=== PATIENT | female | born 1945 | race African-American/Black ===

== ENCOUNTER 2016-08-10 21:05 | Inpatient (IN) ==
[2016-08-10] MEDS ORDERED: *HR* Dextrose 50 % in Water (Syg) 50 ML SYRINGE IVP ONE (21:16)
[2016-08-10] MEDS ORDERED: 0.9 % Sodium Chloride 500 ML IVC ONE (21:18)
--- NOTE | 2016-08-10 21:46 | Emergency Department Note ---
Disposition Clinical Impression: Bilateral pleural effusion, Hypoglycemia Pneumonia Qualifiers: Pneumonia type: due to unspecified organism Laterality: bilateral Lung location : lower lobe of lung Qualified Code(s): J18.9 - Pneumonia, unspecified organism Disposition: Admitted As Inpatient Condition: Fair Referrals: NO,PCP [Non-Partnered Physician] - Forms: ED Satisfaction Letter Time of Disposition: 23:11 General Adult HPI - General Chief complaint: ED Nausea/Vomiting/Diarrhea Stated complaint: hypoglycemic Source: patient, EMS Limitations: no limitations Nursing Notes Reviewed: Yes Vital Signs Reviewed: Yes - History of Present Illness HPI Narrative: Patient is a 70-year-old female presents with a hypoglycemic episode with no inciting event. Patient states she had similar event yesterday which she presented to the ED for 1 day ago. She denies fever, chills, nausea, vomiting, shortness of breath, abdominal pain, diarrhea. She has chest wall tenderness secondary to pulled muscle from physical therapy. Pain Scale: 6 - Related Data Home Medications Medication Instructions Recorded Confirmed Aspirin 81 mg PO DAILY 02/08/16 02/14/16 Atorvastatin [Lipitor] 40 mg PO HS 02/08/16 02/14/16 Duloxetine HCl [Cymbalta] 30 mg PO DAILY 02/08/16 02/14/16 Ergocalciferol (VITAMIN D2) 50,000 unit PO QWEEK 02/08/16 02/14/16 [Vitamin D2 (50,000 UNIT)] Ezetimibe [Zetia] 10 mg PO DAILY 02/08/16 02/14/16 Febuxostat [Uloric] 80 mg PO DAILY 02/08/16 02/14/16 Furosemide [Lasix] 40 mg PO DAILY 02/08/16 02/14/16 Gabapentin [Neurontin] 300 mg PO TID 02/08/16 02/14/16 Hydralazine HCl 50 mg PO Q8H 02/08/16 02/14/16 Isosorbide MONOnitrate (24 HR) 120 mg PO DAILY 02/08/16 02/14/16 [Imdur] LORazepam [Ativan] 0.25 mg PO BID PRN 02/08/16 02/14/16 Levothyroxine Sodium [Synthroid] 200 mcg PO DAILY 02/08/16 02/14/16 Polyethylene Glycol 3350 [MiraLAX] 17 gm PO DAILY PRN 02/08/16 02/14/16 Renal Vitamin [Renal Caps Softgel] 1 mg PO DAILY 02/08/16 02/14/16 Amlodipine [Norvasc] 10 mg PO DAILY 02/14/16 02/14/16 Lidocaine Patch [Lidoderm 5% patch] 1 each TP DAILY 02/14/16 02/14/16 Metoprolol XL (24 HR) Succ [Toprol 25 mg PO DAILY 02/14/16 02/14/16 XL] Oxycodone HCl 15 mg PO TID PRN 02/14/16 02/14/16 Subcutaneous Insulin Pump [T:Slim] 0 unit SQ CONT 02/14/16 02/14/16 Previous Rx's Medication Instructions Recorded Docusate [Colace] 100 mg PO BID PRN 30 Days 02/19/16 Insulin ASPART [NovoLOG] 3 unit SQ TIDWM #60 mls 02/19/16 Insulin DETEMIR [Levemir] 25 unit SQ HS #30 mls 02/19/16 LORazepam [Ativan] 0.25 mg PO BID PRN #15 tablet 02/19/16 Levofloxacin [Levaquin] 750 mg PO DAILY #1 tablet 02/19/16 OxyCODONE Immed Rel [Roxicodone 15 15 mg PO Q8HR PRN #20 tablet 02/19/16 MG] PredniSONE 60 mg PO DAILY 5 Days 02/26/16 Allergies Allergy/AdvReac Type Severity Reaction Status Date / Time IVP DYE Allergy See Uncoded 01/01/16 09:03 Comments Past Medical History - Past Medical History Medical history: Reports: coronary artery disease, diabetes, dialysis, hyperlipidemia, hypertension, renal disease, thyroid disease Surgical history: Reports: hysterectomy, orthopedic, other (Spinal surgeries and pain management injections of the spine) Psychiatric history: Reports: no psych history - Social History Smoking Status: Never smoker Smokeless Tobacco Status: No Alcohol use: Reports: none Drug use: Reports: none Physical Exam - General Limitations: no limitations General appearance: alert, in no apparent distress - Head Head exam: atraumatic, normocephalic, normal inspection - Eye Eye exam: Present: normal appearance, PERRL, EOMI. Absent: scleral icterus - ENT ENT exam: normal exam, normal oropharynx, mucous membranes dry - Neck Neck exam: Present: normal inspection, full ROM, trachea midline. Absent: tenderness - Chest Chest inspection: Present: normal inspection, symmetric chest wall rise. Absent : tenderness - Respiratory Respiratory exam: Present: normal lung sounds bilaterally. Absent: respiratory distress, wheezes - Cardiovascular Cardiovascular exam: Present: regular rate, irregular rhythm - Abdominal Exam Abdominal exam: Present: soft, Non-Tender. Absent: tenderness, distention, guarding, rebound, rigidity - Extremities Exam Extremities exam: Present: full ROM, pedal edema (Bilateral nonpitting). Absent : tenderness - Back Exam Back exam: Present: normal inspection, full ROM, tenderness, other. Absent: CVA tenderness (R), CVA tenderness (L) Back 1 view image: 1 - Decubitus ulcer 2 - Decubitus ulcer both nonpurulent nondraining and superficial - Neurological Exam Neurological exam: Present: alert, oriented X3, CN II-XII intact - Psychiatric Psychiatric exam: Present: normal affect, normal mood - Skin Skin exam: Present: warm, dry, intact, pallor (Mildly ashen skin tone). Absent : mottled Course - Reevaluation(s) Reevaluation #1: Assessment: Hypoglycemic episode possibly stimulated by viral/bacterial infection, ACS/NV, PE Time: 21:33 Reevaluation #2: Patient stool well but appears very tired. She complains of chest wall pain and edema to muscle strain that she incurred from physical therapy. Currently no vaccination for why patient is having his rebound hypoglycemic episodes. Patient's decubitus ulcers on her buttocks. Really clean but cultured anyway. Initiated peripheral cultures as well Time: 22:00 Reevaluation #3: CXR shows: IMPRESSION: per Radiology Vascular congestion and basilar pulmonary edema with small pleural effusions. Superimposed pneumonia remains a possibility, especially on the right side. Patient's CBC shows a mild elevation of white count of 12.0 and chronic anemia. CBC shows a hyperkalemia of 5.4 along with chronically elevated BUN and creatinine. Recommend admission to the hospital for treatment of community acquired pneumonia. He started on bank and Zosyn, to cover for healthcare associated pneumonia. Patient has been updated on progress and has accepted admission for further treatment. Time: 23:14 - Consultations Consultation #1: Dr. Hui has accepted patient for admission. Time: 23:10 Vital Signs Temperature 98.1 F 08/10/16 21:06 Pulse Rate 76 08/10/16 21:06 Respiratory Rate 18 08/10/16 21:06 Blood Pressure 124/104 08/10/16 21:06 O2 Sat by Pulse Oximetry 94 08/10/16 21:06 Temperature 98.1 F 08/10/16 21:06 Pulse Rate 76 08/10/16 21:06 Respiratory Rate 18 08/10/16 21:06 Blood Pressure 124/104 08/10/16 21:06 O2 Sat by Pulse Oximetry 94 08/10/16 21:06 Oxygen Delivery Oxygen Delivery Nasal Cannula Medical Decision Making - Medical Records Medical records reviewed: Yes I reviewed the patient's medical records. - Lab Data Lab results reviewed: Yes I reviewed the patient's lab results. Lab results narrative: Short CBC 08/10/16 Range/Units 21:52 WBC 12.0 H (4.3-11.1) K/mcL Hgb 9.9 L (11.5-15.4) g/dL Hct 32.1 L (35.3-44.9) % Plt Count 455 H (140-400) K/mcL Neutrophils # 4.6 (1.6-8.9) K/mcL BMP 08/10/16 Range/Units 21:52 Sodium 137 (136-145) mEq/L Potassium 5.4 H (3.5-4.5) mEq/L Chloride 101 (98-109) mEq/L Carbon Dioxide 25 (19-29) mEq/L BUN 55 H (7-20) mg/dL Creatinine 8.15 H (0.57-1.11) mg/dL Glucose 107 H (70-99) mg/dL Calcium 9.2 (8.6-10.8) mg/dL Cardiac Enzymes 08/10/16 Range/Units 21:52 Troponin I 0.03 (0-0.03) ng/mL Result diagrams: 08/10/16 21:52 08/10/16 21:52 Lab Results 08/10/16 08/10/16 08/10/16 Range/Units 21:10 21:49 21:52 WBC 12.0 H (4.3-11.1) K/mcL RBC 3.14 L (3.82-4.97) M/mcL Hgb 9.9 L (11.5-15.4) g/dL Hct 32.1 L (35.3-44.9) % MCV 102.2 H (83.0-100.0) fL MCH 31.5 (28.0-33.3) pg MCHC 30.8 L (31.6-35.5) g/dL RDW 18.6 H (11.5-14.5) % Plt Count 455 H (140-400) K/mcL MPV 9.3 L (9.4-12.4) fL Immature Gran % 0.7 (0-4) % Seg Neutrophils % 38.4 % Lymphocytes % 15.8 % Monocytes % 15.0 % Eosinophils % 29.1 % Basophils % 1.0 % Neutrophils # 4.6 (1.6-8.9) K/mcL Lymphocytes # 1.9 (0.6-4.6) K/mcL Monocytes # 1.8 H (0.0-1.3) K/mcL Eosinophils # 3.5 H (0.0-0.6) K/mcL Basophils # 0.1 (0.0-0.2) K/mcL Nucleated RBCs/100 WBC 0.4 H (0) /100 WBC Platelet Estimate Slight increase H (Normal) Large Platelets Present A (Not Present) Immature Plt Fraction 1.8 (1.1-6.1) % Polychromasia 1+ A (Not Present) Anisocytosis 1+ A (Not Present) ESR (0-15) mm/hr Sodium (136-145) mEq/L Potassium (3.5-4.5) mEq/L Chloride (98-109) mEq/L Carbon Dioxide (19-29) mEq/L BUN (7-20) mg/dL Creatinine (0.57-1.11) mg/dL Est GFR ( Amer) (> 60) Est GFR (Non-Af Amer) (> 60) BUN/Creatinine Ratio (6-26) Glucose (70-99) mg/dL POC Glucose 42 L* 112 H (58-89) Calculated Osmolality (280-300) Calcium (8.6-10.8) mg/dL Troponin I (0-0.03) ng/mL Specimen Rejected 08/10/16 08/10/16 08/10/16 Range/Units 21:52 21:52 21:52 WBC (4.3-11.1) K/mcL RBC (3.82-4.97) M/mcL Hgb (11.5-15.4) g/dL Hct (35.3-44.9) % MCV (83.0-100.0) fL MCH (28.0-33.3) pg MCHC (31.6-35.5) g/dL RDW (11.5-14.5) % Plt Count (140-400) K/mcL MPV (9.4-12.4) fL Immature Gran % (0-4) % Seg Neutrophils % % Lymphocytes % % Monocytes % % Eosinophils % % Basophils % % Neutrophils # (1.6-8.9) K/mcL Lymphocytes # (0.6-4.6) K/mcL Monocytes # (0.0-1.3) K/mcL Eosinophils # (0.0-0.6) K/mcL Basophils # (0.0-0.2) K/mcL Nucleated RBCs/100 WBC (0) /100 WBC Platelet Estimate (Normal) Large Platelets (Not Present) Immature Plt Fraction (1.1-6.1) % Polychromasia (Not Present) Anisocytosis (Not Present) ESR 47 H (0-15) mm/hr Sodium 137 (136-145) mEq/L Potassium 5.4 H (3.5-4.5) mEq/L Chloride 101 (98-109) mEq/L Carbon Dioxide 25 (19-29) mEq/L BUN 55 H (7-20) mg/dL Creatinine 8.15 H (0.57-1.11) mg/dL Est GFR ( Amer) 6 L (> 60) Est GFR (Non-Af Amer) 5 L (> 60) BUN/Creatinine Ratio 7 (6-26) Glucose 107 H (70-99) mg/dL POC Glucose (58-89) Calculated Osmolality 300 (280-300) Calcium 9.2 (8.6-10.8) mg/dL Troponin I 0.03 (0-0.03) ng/mL Specimen Rejected 08/10/16 Range/Units 22:15 WBC (4.3-11.1) K/mcL RBC (3.82-4.97) M/mcL Hgb (11.5-15.4) g/dL Hct (35.3-44.9) % MCV (83.0-100.0) fL MCH (28.0-33.3) pg MCHC (31.6-35.5) g/dL RDW (11.5-14.5) % Plt Count (140-400) K/mcL MPV (9.4-12.4) fL Immature Gran % (0-4) % Seg Neutrophils % % Lymphocytes % % Monocytes % % Eosinophils % % Basophils % % Neutrophils # (1.6-8.9) K/mcL Lymphocytes # (0.6-4.6) K/mcL Monocytes # (0.0-1.3) K/mcL Eosinophils # (0.0-0.6) K/mcL Basophils # (0.0-0.2) K/mcL Nucleated RBCs/100 WBC (0) /100 WBC Platelet Estimate (Normal) Large Platelets (Not Present) Immature Plt Fraction (1.1-6.1) % Polychromasia (Not Present) Anisocytosis (Not Present) ESR (0-15) mm/hr Sodium (136-145) mEq/L Potassium (3.5-4.5) mEq/L Chloride (98-109) mEq/L Carbon Dioxide (19-29) mEq/L BUN (7-20) mg/dL Creatinine (0.57-1.11) mg/dL Est GFR ( Amer) (> 60) Est GFR (Non-Af Amer) (> 60) BUN/Creatinine Ratio (6-26) Glucose (70-99) mg/dL POC Glucose (58-89) Calculated Osmolality (280-300) Calcium (8.6-10.8) mg/dL Troponin I (0-0.03) ng/mL Specimen Rejected Volume - Radiology Data Chest X-Ray 08/10/16 21:16 IMPRESSION: Vascular congestion and basilar pulmonary edema with small pleural effusions. Superimposed pneumonia remains a possibility, especially on the right side. D/ / Shahbaz Ellis MD / Shahbaz Ellis MD Interpreting Provider: Shahbaz Ellis MD - EKG Data EKG #1 EKG attestation: Yes I reviewed and interpreted this EKG. EKG results narrative: EKG taken 08/10/2016 shows a atrial fibrillation at a ventricular rate of 74 bpm , no acute ST elevations or depressions and a leads. No QRS I had needing or prolongation of QT. Previous EKG taken 02/26/2016 shows a sinus rhythm at a rate of 72 beats a minute with no acute ST elevations or depressions and a leads. Attestation Statement - Attestation Attestation: I examined this patient and my medical decision-making was reviewed with the STEAM SHOVEL OILER/PA/Advanced Practice Nurse/Resident Physician. I agree with the documented findings, disposition and treatment plan as described except to the extent set forth below. Emergency Department with low blood sugar. Was seen last night for the same. states they went home. She has had her insulin pump off all day. She took 2 small doses of subcutaneous insulin today. She had a big dinner. States she became altered and her blood sugar was in the 30s. Denies fever. On exam here she is awake and alert. Lungs clear abdomen soft. She does have 2 small areas of skin breakdown over her sacrum. Land. Culture sent. Septic workup. She does have an elevated white blood cell count. She is a dialysis patient. Unclear if she has a source of infection. Starting on D5 and likely admission.
[2016-08-10 22:03] LABS: Basophils # 0.1 K/mcL (0.0-0.2); Eosinophils # 3.5 K/mcL (0.0-0.6); Eosinophils % 29.1 %; Hematocrit 32.1 % (35.3-44.9); Hemoglobin 9.9 g/dL (11.5-15.4); Immature Granulocytes % 0.7 % (0-4); Immature Platelets 1.8 % (1.1-6.1); Lymphocytes # 1.9 K/mcL (0.6-4.6); Lymphocytes % 15.8 %; Mean Corpuscular HGB Conc 30.8 g/dL (31.6-35.5); Mean Corpuscular Hemoglobin 31.5 pg (28.0-33.3); Mean Corpuscular Volume 102.2 fL (83.0-100.0); Mean Platelet Volume 9.3 fL (9.4-12.4); Monocytes # 1.8 K/mcL (0.0-1.3); Neutrophils # 4.6 K/mcL (1.6-8.9); Nucleated Red Blood Cells 0.4 /100 WBC (0); Platelet Count 455 K/mcL (140-400); Red Blood Count 3.14 M/mcL (3.82-4.97); Red Cell Distribution Width 18.6 % (11.5-14.5); Segmented Neutrophils % 38.4 %
[2016-08-10] MEDS ORDERED: D5% in 0.45% NACL 1,000 ML IVC SCH (22:15)
[2016-08-10 22:16] LABS: Calcium 9.2 mg/dL (8.6-10.8); Potassium 5.4 mEq/L (3.5-4.5)
[2016-08-10] MEDS ORDERED: Vancomycin 1,250 MG in D5% in Water 250 ML IVPB ONE (22:29)
[2016-08-10 22:44] LABS: Anisocytosis 1+ (Not Present); Large Platelets Present (Not Present); Polychromasia 1+ (Not Present)
[2016-08-10] MEDS ORDERED: Piperacillin/Tazobactam 3.375 GM in D5% in Water (Mini-Bag+) 100 ML IVPB ONE (22:52)
[2016-08-11] MEDS: *HR* OxyCODONE Immed Rel 15 MG TABLET PO PRN ×2 (03:31→17:33)
[2016-08-11] MEDS ORDERED: Naloxone 0.4 MG/ML INJ IVP PRN (06:18)
[2016-08-11] MEDS ORDERED: Dextrose Gel 15 GM PO PRN ×2 (06:23)
[2016-08-11] MEDS ORDERED: D5% in Water 1,000 ML IVC PRN (06:23)
--- NOTE | 2016-08-11 06:25 | Internal Med History&Physical ---
Date of Encounter: 08/11/16 Time of Encounter: 04:00 Assessment and Plan (1) Hypoglycemia Current visit: Yes Status: Acute Likely due to infection versus malfunction of the insulin pump / excess insulin and poor oral intake. Insulin pump discontinued. Pt is on D5W infusion. start sliding scale insulin, when the glood glucose improves. (2) Pneumonia Current visit: Yes Status: Acute CXR is suspicious for pneumonia. Will start the pt on vancomycin and zosyn. sputum cultures. Qualifiers: Pneumonia type: due to unspecified organism Laterality: bilateral Lung location: unspecified part of lung Qualified Code(s): J18.9 - Pneumonia, unspecified organism (3) Pulmonary edema Current visit: Yes Status: Acute Likely due to volume overload related to ESRD. Will consult tax services manager for further advice. Qualifiers: Chronicity: acute Qualified Code(s): J81.0 - Acute pulmonary edema (4) Hyperkalemia Current visit: Yes Status: Acute On D5W. Ladder Operator consult (5) ESRD (end stage renal disease) on dialysis Current visit: Yes Status: Chronic Nephrology consult. (6) Atrial fibrillation Current visit: Yes Status: Chronic rate controlled. Not on anticoagulation prior to admission. Qualifiers: Atrial fibrillation type: unspecified Qualified Code(s): I48.91 - Unspecified atrial fibrillation (7) Diabetes Current visit: Yes Status: Chronic Pt is hypoglycemic on admission. Hold insulin. On D5W infusion. Qualifiers: Diabetes mellitus type: type 2 Diabetes mellitus complication status: with circulatory complication Diabetes mellitus complication detail: with other circulatory complications Diabetes mellitus penitentiary insulin use: with termination clerk use Qualified Code(s): E11.59 - Type 2 diabetes mellitus with other circulatory complications; Z79.4 - tank terminal gauger (current) use of insulin (8) DVT prophylaxis Current visit: Yes Status: Acute SubQ heparin Internal Medicine - H&P: HPI Chief complaint: Hypoglecemia Admitted From: Emergency Dept Plans for Post Hospital Care: Home History of present illness: Ms. Moffett is a 70 year old female With h/o coronary artery disease, diabetes mellitus on insulin pump, ESRD on hemodialysis (M/W/F), hypertension. She apparently had an episode of hypoglycemia the night before and insulin pump was discontinued and advised sliding scale insulin. She had another episode of hypoglycemia when at home and apparently had blood glucose of 40, on the scene and 42 in the ER. She is started on IV dextrose. She reports b/l chest pain from pulled muscle from physical therapy. She denies fever, chills, nausea, vomiting, shortness of breath, cough, expectoration, abdominal pain, diarrhea. She does not make much urine and has some dysuria, but denies hematuria. Imaging in the ER was suspicious for pneumonia was given zosyn and vancomycin. She is admitted to the hospitalist service for further management. Past Med Surg Social Fam HX - Past Medical History Medical history: coronary artery disease, diabetes, dialysis, hyperlipidemia, hypertension, renal disease, thyroid disease Psychiatric history: no psych history - Past Surgical History Surgical History: hysterectomy, orthopedic, other - Social History Smoking Status: Never smoker Smokeless Tobacco Status: No Alcohol use: none Drug use: none - Family History Mother Adopted: No Living Status: Hx Family Cardiac Disorders: Yes Father Adopted: No Living Status: Hx Family Cardiac Disorders: No Hx Family Respiratory Disorders: No Hx Family Cancer: Yes Internal Medicine - H&P: Meds Aspirin 81 mg PO DAILY 02/08/16 [History] Atorvastatin [Lipitor] 40 mg PO HS 02/08/16 [History] Duloxetine HCl [Cymbalta] 30 mg PO DAILY 02/08/16 [History] Ergocalciferol (VITAMIN D2) [Vitamin D2 (50,000 UNIT)] 50,000 unit PO QWEEK 10/18 [History] Ezetimibe [Zetia] 10 mg PO DAILY 02/08/16 [History] Febuxostat [Uloric] 80 mg PO DAILY 02/08/16 [History] Furosemide [Lasix] 40 mg PO DAILY 02/08/16 [History] Gabapentin [Neurontin] 300 mg PO TID 02/08/16 [History] Hydralazine HCl 50 mg PO Q8H 02/08/16 [History] Isosorbide MONOnitrate (24 HR) [Imdur] 120 mg PO DAILY 02/08/16 [History] LORazepam [Ativan] 0.5 mg PO BID PRN 02/08/16 [History] Levothyroxine Sodium [Synthroid] 200 mcg PO DAILY 02/08/16 [History] Polyethylene Glycol 3350 [MiraLAX] 17 gm PO DAILY PRN 02/08/16 [History] Renal Vitamin [Renal Caps Softgel] 1 mg PO DAILY 02/08/16 [History] Amlodipine [Norvasc] 10 mg PO DAILY 02/14/16 [History] Lidocaine Patch [Lidoderm 5% patch] 1 each TP DAILY 02/14/16 [History] Docusate [Colace] 100 mg PO BID PRN 30 Days 02/19/16 [Rx] Insulin ASPART [NovoLOG] 3 unit SQ TIDWM #60 mls 02/19/16 [Rx] Allopurinol [Zyloprim 300 MG] 300 mg PO QMWF 08/11/16 [History] Nitroglycerin [Nitroglycerin] 0.1 mg TP DAILY 08/11/16 [History] Ondansetron ODT [Zofran ODT] 4 mg SL Q6HR PRN 08/11/16 [History] OxyCODONE Immed Rel [Roxicodone 15 MG] 5 mg PO Q8HR PRN 08/11/16 [History] Tramadol HCl [Ultram] 50 mg PO Q6HR PRN 08/11/16 [History] Insulin Glargine,Hum.rec.anlog [Lantus Solostar] 40 unit SQ HS 08/12/16 [History ] Meloxicam [Mobic] 15 mg PO DAILY 08/12/16 [History] Metoprolol [Lopressor] 25 mg PO BID 08/12/16 [History] Supplies [SUPPLIES] 1 each .ROUTE QID #125 each 08/14/16 [Rx] Allergies IVP DYE Allergy (Uncoded 01/01/16 09:03) See Comments PATIENT IS ON DIALYSIS "HURTS KIDNEYS" All Systems PM: A 10-system review of systems was performed and is negative for pertinent findings except as documented above in the HPI. - Constitutional Vitals: Temp Pulse Resp BP Pulse Ox 98.5 F 75 16 100/58 93 08/11/16 03:23 08/11/16 03:23 08/11/16 03:23 08/11/16 03:23 08/11/16 03:23 Exam: General: Not in acute distress at the time of my evaluation HEENT: Oral mucosa is moist. No scleral icterus Neck: No obvious neck swellings Chest wall: diffusely tender Lungs: B/L basal crakles Cardiac: Irregular rhythm. systolic murmur Abdomen: Obese, non tender. Bowel sounds present Genitourinary: No machado catheter Neurological: Alert and oriented. No gross localizing deficits Psych: Not aggressive or agitated Extremities: B/L leg edema Skin: No generalized rash Internal Med - H&P Results - Labs CBC & Chem 7: 08/14/16 06:26 08/14/16 14:41 - EKG Data -: EKG Interpreted by Myself - EKG Data EKG comments: Atrial fibrillation; T wave inversion in I, AVL and V6 08/11/16 07:42 - Impressions ITS Impressions Chest X-Ray 08/10/16 21:16 IMPRESSION: Vascular congestion and basilar pulmonary edema with small pleural effusions. Superimposed pneumonia remains a possibility, especially on the right side. D/ / Shahbaz Ellis MD / Shahbaz Ellis MD Interpreting Provider: Shahbaz Ellis MD Abdomen/Pelvis CT 08/10/16 22:28 IMPRESSION: No acute inflammatory abnormality is identified in the abdomen or pelvis. Small bilateral pleural effusions associated with overlying atelectasis. Superimposed pneumonia is a differential possibility. Mild anasarca. L3-4 stable, chronic erosive changes and anterolisthesis. Posterior fixation hardware has been removed from the lumbar spine since May 2016. Cholelithiasis. D/ / Shahbaz Ellis MD / Shahbaz Ellis MD Interpreting Provider: Shahbaz Ellis MD
[2016-08-11] MEDS: Insulin LISPRO 300 UNITS/3 ML VIAL SQ SCH ×4 (07:57→22:46)
[2016-08-11 08:05] LABS: Basophils # 0.1 K/mcL (0.0-0.2); Basophils % 1.1 %; Eosinophils # 2.9 K/mcL (0.0-0.6); Eosinophils % 23.9 %; Hematocrit 31.4 % (35.3-44.9); Hemoglobin 9.4 g/dL (11.5-15.4); Immature Granulocytes % 0.9 % (0-4); Immature Platelets 1.4 % (1.1-6.1); Lymphocytes # 2.1 K/mcL (0.6-4.6); Lymphocytes % 17.2 %; Mean Corpuscular HGB Conc 29.9 g/dL (31.6-35.5); Mean Corpuscular Hemoglobin 30.7 pg (28.0-33.3); Mean Corpuscular Volume 102.6 fL (83.0-100.0); Mean Platelet Volume 9.4 fL (9.4-12.4); Monocytes # 1.5 K/mcL (0.0-1.3); Monocytes % 12.5 %; Neutrophils # 5.5 K/mcL (1.6-8.9); Nucleated Red Blood Cells 0.3 /100 WBC (0); Platelet Count 438 K/mcL (140-400); Red Blood Count 3.06 M/mcL (3.82-4.97); Red Cell Distribution Width 18.4 % (11.5-14.5); Segmented Neutrophils % 44.4 %
[2016-08-11 08:15] LABS: Calcium 9.3 mg/dL (8.6-10.8); Magnesium 1.8 mg/dL (1.6-2.6); Phosphorous 4.1 mg/dL (2.3-4.7)
[2016-08-11 08:20] LABS: Potassium 6.1 mEq/L (3.5-4.5)
[2016-08-11 08:25] LABS: Anisocytosis 1+ (Not Present); Polychromasia 1+ (Not Present)
--- NOTE | 2016-08-11 08:45 | Internal Med Progress Note ---
Date of Encounter: 08/11/16 Time of Encounter: 08:43 - Assessment and plan (1) Uncontrolled type 2 diabetes mellitus with insulin therapy Current Visit: Yes Status: Acute Assessment and plan: Resume insulin sliding scale. Closely monitor blood glucose today 4 times daily. Insulin pump was deactivated. Check hemoglobin A1c. (2) Musculoskeletal chest pain Current Visit: Yes Status: Acute Assessment and plan: Lidocaine patch and will add oxycodone. (3) Hyperkalemia Current Visit: Yes Status: Acute Assessment and plan: Her potassium was 5.4 on presentation, she was given 1 dose of Kayexalate, she had a regular bowel movement. In spite of that her potassium went up to 6.1. I discussed the case with nephrology. She will be evaluated this morning for emergent dialysis for refractory hyperkalemia. (4) Bilateral pleural effusion Current Visit: Yes Status: Acute (5) Hypoglycemia Current Visit: Yes Status: Acute (6) Pulmonary edema Current Visit: Yes Status: Acute Assessment and plan: Secondary to fluid overload and. She is in no respiratory distress. She will have hemodialysis today with fluid removal. Qualifiers: Chronicity: acute Qualified Code(s): J81.0 - Acute pulmonary edema (7) ESRD (end stage renal disease) on dialysis Current Visit: Yes Status: Chronic (8) DVT prophylaxis Current Visit: No Status: Acute Assessment and plan: We will provide subcutaneous heparin. (9) HCAP (healthcare-associated pneumonia) Current Visit: No Status: Acute Assessment and plan: There is a possibility of pneumonia reported on imaging studies. White blood cell count is elevated. The patient is not hypoxic. Due to her high risk of decline I will continue treatment with IV Zosyn. Follow up blood culture and sputum culture and these are negative consider stopping antibiotics. - Subjective Interval history: Patient presented to the hospital for evaluation of blood glucose. Her fingerstick was 40 in the emergency department. She was given IV dextrose. Currently her glucose is greater than 500. She reports severe sharp pain in the left side of the chest where she says she sprained a muscle a few days ago while doing therapy. The pain improved at home with oxycodone. She denies any associated shortness of breath or nausea. - Constitutional Vitals: Temp Pulse Resp BP Pulse Ox 97.9 F 77 18 99/50 93 08/11/16 07:41 08/11/16 07:41 08/11/16 07:41 08/11/16 07:41 08/11/16 07:41 General appearance: Present: A&O X 3 (Moderate distress due to muscle pain.) - Eye Eye exam: Present: PERRL, conjuntiva pink, sclera anicteric Pupils: Present: PERRL - Respiratory Respiratory exam: Present: rales (Find crackles audible over both lung thomas). Absent: accessory muscle use, rhonchi, wheezes - Cardiovascular Cardiovascular exam: Present: RRR, +S1, +S2. Absent: diastolic murmur, gallop, rubs, systolic murmur - GI/Abdominal GI/Abdominal exam: Present: normal bowel sounds, soft, no peritoneal signs. Absent: distended, tenderness - Extremities Exam Extremities exam: Present: warm, radial pulses palpable and symetrical. Absent : calf tenderness (Left upper extremity AV fistula with palpable thrill), cyanotic, pedal edema - Skin Skin exam: Present: dry, intact Internal Medicine: Result - Labs CBC & Chem 7: 08/11/16 07:48 08/11/16 07:48 Labs: Short CBC 08/11/16 Range/Units 07:48 WBC 12.3 H (4.3-11.1) K/mcL Hgb 9.4 L (11.5-15.4) g/dL Hct 31.4 L (35.3-44.9) % Plt Count 438 H (140-400) K/mcL Neutrophils # 5.5 (1.6-8.9) K/mcL BMP 08/11/16 07:48 Sodium 134 L Potassium 6.1 H Chloride 97 L Carbon Dioxide 17 L BUN 65 H Creatinine 8.78 H Glucose 504 H* Calcium 9.3 Consult Discharge Plan - Plan Referrals: Hugo Mercedes MD [Primary Care Provider] -
[2016-08-11] MEDS ORDERED: Albumin 25% 12.5gm/50mL 12.5 GM/50 ML IV.SOLN IVPB PRN (09:20)
[2016-08-11] MEDS ORDERED: 0.9 % Sodium Chloride 250 ML IVC PRN (09:20)
[2016-08-11] MEDS ORDERED: 0.9 % Sodium Chloride 2,000 ML ONE (11:13)
--- NOTE | 2016-08-11 12:36 | Nephrology Consult Note ---
Date of Encounter: 08/11/16 Time of Encounter: 10:15 Assessment and Plan (1) ESRD (end stage renal disease) on dialysis Current Visit: Yes Status: Chronic Fragile diabetic with hypoglycemia while on an insulin pump, who presented with symptomatic hypoglycemia overnight. Was found to be mildly hyperkalemic and was given Kayexalte but yet her serum K+ actually ponce to 6+ this AM. She also has signs of fluid overload with pleural effusions. So has indications for urgent HD today (refractory hyperkalemia and fluid overload). I called in the on-call HD RN and arranged for 2hr of HD with Qb450, Qd600, 2K bath, goal UF of 1.5kg. Tentatively plan for resumption of her chronic HD tomorrow (Friday). AV access: left upper arm with excellent thrill and bruit. The pt was seen while on HD after the consult and the photoengraving machine operator/tender reported mildly affected venous flows: will monitor but if needed a Fistulagram could be arranged as an outpt. Thank you for consulting the [facility]. (2) Bilateral pleural effusion Current Visit: Yes Status: Acute (3) Hyperkalemia Current Visit: Yes Status: Acute (4) Hypoglycemia Current Visit: Yes Status: Acute (5) Uncontrolled type 2 diabetes mellitus with insulin therapy Current Visit: Yes Status: Acute History of Present Illness - Reason for Consult Consult date: 08/11/16 end stage renal disease, hyperkalemia Requesting physician: Teodoro Lopez - Chief Complaint Hyperkalemia; ESRD; Hypoglycemia - History of Present Illness Ursula Moffett is a very pleasant 70 y/o female with a pmh of lonstanding ESRD on HD M/W/F, IDDM, obesity, and et al who presented with symptomatic hypoglycemia. She had an insulin pump in place earlier this week, which as since been removed. Nephrology was consulted for refractory hyperkalemia. She had received kayexalate last night but yet her serum K+ levels ponce higher. She reported to me that she has suffered several hospitalizations and not long ago was at [facility] in [place] and required inpatient rehab at [facility] near [facility], for about 2 months. I reviewed the [facility] records via the [facility]. Her primary nursing education consultant is Dr. Louise. She typically dialyzes 210 min. She last completed HD on 08/09/16 for 217 min. She receives a 1K bath apparently for recurrent hyperkalemia. Qb450, Qd 600, LUE AVF. Past Med Surg Social Fam HX - Past Medical History Medical history: coronary artery disease, diabetes, dialysis, hyperlipidemia, hypertension, renal disease, thyroid disease Psychiatric history: no psych history - Past Surgical History Surgical History: hysterectomy, orthopedic, other - Social History Smoking Status: Never smoker Smokeless Tobacco Status: No Alcohol use: none Drug use: none - Family History Mother Adopted: No Living Status: Hx Family Cardiac Disorders: Yes Father Adopted: No Living Status: Hx Family Cardiac Disorders: No Hx Family Respiratory Disorders: No Hx Family Cancer: Yes Medications and Allergies Aspirin 81 mg PO DAILY 02/08/16 [History] Atorvastatin [Lipitor] 40 mg PO HS 02/08/16 [History] Duloxetine HCl [Cymbalta] 30 mg PO DAILY 02/08/16 [History] Ergocalciferol (VITAMIN D2) [Vitamin D2 (50,000 UNIT)] 50,000 unit PO QWEEK 10/18 [History] Ezetimibe [Zetia] 10 mg PO DAILY 02/08/16 [History] Febuxostat [Uloric] 80 mg PO DAILY 02/08/16 [History] Furosemide [Lasix] 40 mg PO DAILY 02/08/16 [History] Gabapentin [Neurontin] 300 mg PO TID 02/08/16 [History] Hydralazine HCl 50 mg PO Q8H 02/08/16 [History] Isosorbide MONOnitrate (24 HR) [Imdur] 120 mg PO DAILY 02/08/16 [History] LORazepam [Ativan] 0.25 mg PO BID PRN 02/08/16 [History] Levothyroxine Sodium [Synthroid] 200 mcg PO DAILY 02/08/16 [History] Polyethylene Glycol 3350 [MiraLAX] 17 gm PO DAILY PRN 02/08/16 [History] Renal Vitamin [Renal Caps Softgel] 1 mg PO DAILY 02/08/16 [History] Amlodipine [Norvasc] 10 mg PO DAILY 02/14/16 [History] Lidocaine Patch [Lidoderm 5% patch] 1 each TP DAILY 02/14/16 [History] Metoprolol XL (24 HR) Succ [Toprol XL] 25 mg PO DAILY 02/14/16 [History] Oxycodone HCl 15 mg PO TID PRN 02/14/16 [History] Subcutaneous Insulin Pump [T:Slim] 0 unit SQ CONT 02/14/16 [History] Docusate [Colace] 100 mg PO BID PRN 30 Days 02/19/16 [Rx] Insulin ASPART [NovoLOG] 3 unit SQ TIDWM #60 mls 02/19/16 [Rx] Insulin DETEMIR [Levemir] 25 unit SQ HS #30 mls 02/19/16 [Rx] LORazepam [Ativan] 0.25 mg PO BID PRN #15 tablet 02/19/16 [Rx] Levofloxacin [Levaquin] 750 mg PO DAILY #1 tablet 02/19/16 [Rx] OxyCODONE Immed Rel [Roxicodone 15 MG] 15 mg PO Q8HR PRN #20 tablet 02/19/16 [Rx ] PredniSONE 60 mg PO DAILY 5 Days 02/26/16 [Rx] Allergies IVP DYE Allergy (Uncoded 01/01/16 09:03) See Comments PATIENT IS ON DIALYSIS "HURTS KIDNEYS" Review of Systems All Systems: reviewed and no additional remarkable complaints except as stated Exam - Vital Signs Vital signs: Initial Vital Signs Temp Pulse Resp BP Pulse Ox 98.1 F 76 18 124/104 94 08/10/16 21:06 08/10/16 21:06 08/10/16 21:06 08/10/16 21:06 08/10/16 21:06 Vital Signs - Last 8 Hours Temp Pulse Resp BP Pulse Ox 08/11/16 12:15 108/54 08/11/16 12:00 122/57 08/11/16 11:45 122/56 08/11/16 11:30 97.9 F 18 127/53 08/11/16 07:41 97.9 F 77 18 99/50 93 Intake and Output 08/10/16 08/11/16 08/11/16 23:59 07:59 15:59 Intake Total 1000 / 1300 840 / 840 Output Total 0 / 0 Balance 1000 / 1300 840 / 840 Intake: Oral 1000 / 1000 240 / 240 Intake, Rinseback and 600 / 600 Flushes Output: Urine 0 / 0 Other: Meal Breakfast Percent of Meal Consumed 5% Stool Size Large Stool Consistency formed Stool Color Brown # Urine Diapers 1 Blood Glucose* 446 Hemodialysis Net Fluid 789 Removed (mL) - General Appearance General appearance: well-developed, obese, chronically ill, fatigue, frail EENT: ATNC, PERRL, mucous membranes moist Neck: supple Respiratory: clear Cardiology: edema (trace to 1+ pretibial pitting edema b/l), regular rate, regular rhythm, normal S1, normal S2 - Dialysis Access Dialysis Vascular Access: Arteriovenous Fistula (Left upper extremity with + thrill/bruit on auscultation) thrill: Yes bruit: Yes Gastrointestinal: normoactive bowel sounds, no tenderness, no guarding, no organomegaly Integumentary: warm and dry Neurologic: no focal deficit, no asterixis, alert and oriented x3 Musculoskeletal: no deformities, no erythema, no cyanosis Psychiatric: mood/affect appropriate (but cried in appreciation at the end of the interview/exam and thanked me for providing an extra HD today (Friday)), cooperative Results - Lab Results 08/11/16 07:48 08/11/16 07:48 Most recent lab results Calcium 9.3 mg/dL (8.6-10.8) 08/11/16 07:48 Phosphorus 4.1 mg/dL (2.3-4.7) 08/11/16 07:48 Magnesium 1.8 mg/dL (1.6-2.6) 08/11/16 07:48 I reviewed the above auto-generated data including medical records at [facility] and outside medical records from the [facility] EMR/aime, labs, meds, vitals, imaging. Consult Discharge Plan - Plan Referrals: Hugo Mercedes MD [Primary Care Provider] -
--- NOTE | 2016-08-11 12:45 | Event Note ---
Date of Encounter: 08/11/16 Time of Encounter: 12:00 HD note: The pt was seen/examined while on HD. Hemodynamically stable and tolerating HD without intradialytic hypotension. Access pressures and blood/dialysate flows were acceptable. Plan for the next HD tomorrow.
[2016-08-11 13:16] LABS: Hepatitis B Surface Antigen Nonreactive (Nonreactive)
[2016-08-11] MEDS: Piperacillin/Tazobactam 3.375 GM in D5% in Water (Mini-Bag+) 100 ML IVPB SCH (14:50)
[2016-08-11] MEDS: *HR* Heparin 5,000 UNIT/ML VIAL SQ SCH (17:02)
[2016-08-11] MEDS ORDERED: *HR* LORazepam 0.5 MG TABLET PO PRN (17:33)
[2016-08-11] MEDS: hydrALAZINE 25 MG TABLET PO SCH (18:40)
[2016-08-11] MEDS: *HR* Morphine 2 MG/ML SYRINGE IVP PRN (20:13)
[2016-08-11] MEDS: Metoprolol XL (24 HR) Succ 25 MG TAB.ER.24H PO SCH (22:49)
[2016-08-12] MEDS: *HR* Morphine 2 MG/ML SYRINGE IVP PRN ×2 (01:09→05:25)
[2016-08-12] MEDS: hydrALAZINE 25 MG TABLET PO SCH ×3 (04:52→19:03)
[2016-08-12] MEDS: Piperacillin/Tazobactam 3.375 GM in D5% in Water (Mini-Bag+) 100 ML IVPB SCH ×2 (05:15→15:28)
[2016-08-12] MEDS: *HR* Heparin 5,000 UNIT/ML VIAL SQ SCH ×2 (05:18→19:03)
[2016-08-12 05:39] LABS: Basophils # 0.1 K/mcL (0.0-0.2); Basophils % 0.9 %; Eosinophils # 2.8 K/mcL (0.0-0.6); Hematocrit 32.7 % (35.3-44.9); Hemoglobin 9.7 g/dL (11.5-15.4); Immature Granulocytes % 0.7 % (0-4); Lymphocytes # 2.4 K/mcL (0.6-4.6); Lymphocytes % 18.7 %; Mean Corpuscular HGB Conc 29.7 g/dL (31.6-35.5); Mean Corpuscular Hemoglobin 30.8 pg (28.0-33.3); Mean Corpuscular Volume 103.8 fL (83.0-100.0); Mean Platelet Volume 9.4 fL (9.4-12.4); Monocytes # 1.6 K/mcL (0.0-1.3); Monocytes % 12.2 %; Neutrophils # 5.9 K/mcL (1.6-8.9); Nucleated Red Blood Cells 0.2 /100 WBC (0); Platelet Count 358 K/mcL (140-400); Red Blood Count 3.15 M/mcL (3.82-4.97); Red Cell Distribution Width 18.7 % (11.5-14.5); Segmented Neutrophils % 45.5 %
[2016-08-12 05:52] LABS: Calcium 9.2 mg/dL (8.6-10.8); Potassium 5.9 mEq/L (3.5-4.5)
[2016-08-12 06:09] LABS: Platelet Estimate Normal (Normal)
[2016-08-12] MEDS: Insulin LISPRO 300 UNITS/3 ML VIAL SQ SCH ×6 (06:53→21:50)
[2016-08-12] MEDS: Metoprolol XL (24 HR) Succ 25 MG TAB.ER.24H PO SCH ×2 (08:28→21:48)
--- NOTE | 2016-08-12 09:26 | Electrocardiograph Report ---
[address] [place] [address] Test Date: 2016-08-10 Pat Name: Ursula Moffett Department: 105 Room: 3A Gender: F Injection Molding Engineer: RENETTA : 1945 Requested By: Martín Charles Order Number: [id number] Reading MD: Kenan Michael MD Measurements Intervals [place] Rate: 74 P: WI: 0 QRS: 2 QRSD: 110 T: 139 QT: 356 QTc: 383 Interpretive Statements ATRIAL FIBRILLATION Electronically Signed On 08-12-2016 9:25:00 EDT by Kenan Michael MD
[2016-08-12] MEDS ORDERED: 0.9 % Sodium Chloride 250 ML IVC PRN (09:43)
[2016-08-12] MEDS ORDERED: 0.9 % Sodium Chloride 1,000 ML PRIME SCH (09:45)
[2016-08-12] MEDS: Isosorbide MONOnitrate (24 HR) 60 MG TAB.ER.24H PO SCH (15:35)
[2016-08-12] MEDS ORDERED: Vancomycin 750 MG in D5% in Water 250 ML IVPB ONE (18:00)
--- NOTE | 2016-08-12 19:22 | Internal Med Progress Note ---
Date of Encounter: 08/12/16 Time of Encounter: 14:00 - Assessment and plan (1) Uncontrolled type 2 diabetes mellitus with insulin therapy Current Visit: Yes Status: Acute Assessment and plan: 08/12/2016: Start insulin Levemir 20 units nightly. Add pre-meal insulin coverage. Continue with low-dose insulin sliding scale. 08/11/2016: Resume insulin sliding scale. Closely monitor blood glucose today 4 times daily. Insulin pump was deactivated. Check hemoglobin A1c. (2) Musculoskeletal chest pain Current Visit: Yes Status: Acute Assessment and plan: Lidocaine patch and will add oxycodone. (3) Hyperkalemia Current Visit: Yes Status: Acute Assessment and plan: 08/12/2016: Potassium is coming down with hemodialysis. I appreciate nephrology input. Continue to monitor. Low potassium renal diet. 08/11/2016: Her potassium was 5.4 on presentation, she was given 1 dose of Kayexalate, she had a regular bowel movement. In spite of that her potassium went up to 6.1. I discussed the case with nephrology. She will be evaluated this morning for emergent dialysis for refractory hyperkalemia. (4) Bilateral pleural effusion Current Visit: Yes Status: Acute (5) Hypoglycemia Current Visit: Yes Status: Acute (6) Pulmonary edema Current Visit: Yes Status: Acute Assessment and plan: Secondary to fluid overload and. She is in no respiratory distress. She will have hemodialysis today with fluid removal. Qualifiers: Chronicity: acute Qualified Code(s): J81.0 - Acute pulmonary edema (7) ESRD (end stage renal disease) on dialysis Current Visit: Yes Status: Chronic (8) DVT prophylaxis Current Visit: No Status: Acute Assessment and plan: We will provide subcutaneous heparin. (9) HCAP (healthcare-associated pneumonia) Current Visit: No Status: Acute Assessment and plan: Patient received 2 sessions of hemodialysis with fluid removal. We will repeat chest x-ray to determine if there is indeed pneumonia or was mostly fluid. There is a possibility of pneumonia reported on imaging studies. White blood cell count is elevated. The patient is not hypoxic. Due to her high risk of decline I will continue treatment with IV Zosyn. Follow up blood culture and sputum culture and these are negative consider stopping antibiotics. - Subjective Interval history: 08/12/2016: Blood glucose was elevated overnight. She continues to report moderate musculoskeletal left-sided chest pain where she pulled a muscle. Denies nausea vomiting. Denies associated shortness of breath. Patient presented to the hospital for evaluation of low blood glucose. Her fingerstick was 40 in the emergency department. She was given IV dextrose. Currently her glucose is greater than 500. She reports severe sharp pain in the left side of the chest where she says she sprained a muscle a few days ago while doing therapy. The pain improved at home with oxycodone. She denies any associated shortness of breath or nausea. - Constitutional Vitals: Temp Pulse Resp BP Pulse Ox 97.7 F 73 14 125/68 93 08/12/16 15:47 08/12/16 15:47 08/12/16 15:47 08/12/16 15:47 08/12/16 15:47 General appearance: Present: A&O X 3 (Moderate distress due to muscle pain.) - Eye Eye exam: Present: PERRL, conjuntiva pink, sclera anicteric Pupils: Present: PERRL - Respiratory Respiratory exam: Present: CTAB. Absent: accessory muscle use, rales, rhonchi, wheezes - Cardiovascular Cardiovascular exam: Present: RRR, +S1, +S2. Absent: diastolic murmur, gallop, rubs, systolic murmur - GI/Abdominal GI/Abdominal exam: Present: normal bowel sounds, soft, no peritoneal signs. Absent: distended, tenderness - Neurological Exam Neurological exam: Present: CN II-XII intact, oriented X3, no focal deficits. Absent: pronater drift, facial droop, speech deficit Internal Medicine: Result - Labs CBC & Chem 7: 08/12/16 05:18 08/12/16 05:18 Labs: Short CBC 08/12/16 Range/Units 05:18 WBC 12.9 H (4.3-11.1) K/mcL Hgb 9.7 L (11.5-15.4) g/dL Hct 32.7 L (35.3-44.9) % Plt Count 358 (140-400) K/mcL Neutrophils # 5.9 (1.6-8.9) K/mcL BMP 08/12/16 05:18 Sodium 135 L Potassium 5.9 H Chloride 98 Carbon Dioxide 15 L BUN 67 H Creatinine 8.77 H Glucose 515 H* Calcium 9.2 Consult Discharge Plan - Plan Referrals: Hugo Mercedes MD [Primary Care Provider] -
[2016-08-12] MEDS ORDERED: Insulin DETEMIR 100 UNIT/ML X5UNITS SQ SCH (21:00)
[2016-08-13] MEDS: Piperacillin/Tazobactam 3.375 GM in D5% in Water (Mini-Bag+) 100 ML IVPB SCH ×2 (00:29→11:49)
[2016-08-13] MEDS: hydrALAZINE 25 MG TABLET PO SCH ×3 (03:10→17:29)
[2016-08-13 05:12] LABS: Potassium 5.1 mEq/L (3.5-4.5)
[2016-08-13] MEDS: *HR* Heparin 5,000 UNIT/ML VIAL SQ SCH ×2 (05:52→17:33)
[2016-08-13 06:08] LABS: Eosinophils # 2.5 K/mcL (0.0-0.6); Hematocrit 29.9 % (35.3-44.9); Hemoglobin 9.2 g/dL (11.5-15.4); Lymphocytes # 2.1 K/mcL (0.6-4.6); Mean Corpuscular HGB Conc 30.8 g/dL (31.6-35.5); Mean Corpuscular Hemoglobin 31.3 pg (28.0-33.3); Mean Corpuscular Volume 101.7 fL (83.0-100.0); Mean Platelet Volume 9.5 fL (9.4-12.4); Nucleated Red Blood Cells 0.2 /100 WBC (0); Platelet Count 282 K/mcL (140-400); Red Blood Count 2.94 M/mcL (3.82-4.97); Red Cell Distribution Width 18.7 % (11.5-14.5)
[2016-08-13 06:16] LABS: Monocytes # 2.1 K/mcL (0.0-1.3); Neutrophils # 4.8 K/mcL (1.6-8.9); Platelet Clumps Few (Not Present); Platelet Estimate Normal (Normal)
[2016-08-13 06:17] LABS: Anisocytosis 1+ (Not Present); Macrocytosis Present (Not Present); Microcytosis Present (Not Present); Polychromasia 1+ (Not Present)
--- NOTE | 2016-08-13 06:39 | Nephrology Progress Note ---
Date of Encounter: 08/13/16 Time of Encounter: 06:34 - Assessment and Plan (1) ESRD (end stage renal disease) on dialysis Current Visit: Yes Status: Chronic Continue HD MWF. Renal dose medications Renal diet (2) Diabetes mellitus, type 2 Current Visit: No Status: Chronic Qualifiers: Diabetes mellitus complication status: with kidney complications Diabetes mellitus complication detail: with chronic kidney disease Diabetes mellitus long term care administrator insulin use: with long term care administrator use Chronic kidney disease stage: on chronic dialysis Qualified Code(s): E11.22 - Type 2 diabetes mellitus with diabetic chronic kidney disease Subjective Principal diagnosis: ESRD Interval history: Patient was seen while on dialysis. She has no new complaint. Her review of systems was otherwise stable. Objective - Vital Signs Vital signs: Vital Signs Temp Pulse Resp BP Pulse Ox 08/13/16 05:15 98.3 F 66 15 125/60 93 08/13/16 01:05 98.1 F 64 15 111/52 93 08/12/16 21:35 98.2 F 64 12 109/53 95 08/12/16 15:47 97.7 F 73 14 125/68 93 08/12/16 14:59 98.3 F 18 109/53 08/12/16 13:40 104/53 08/12/16 13:25 101/46 08/12/16 13:10 94/48 08/12/16 12:55 95/49 08/12/16 12:40 101/51 08/12/16 12:25 97/41 08/12/16 12:10 96/42 08/12/16 11:55 100/44 08/12/16 11:40 101/45 08/12/16 11:25 94/44 08/12/16 11:10 101/48 08/12/16 10:55 102/42 08/12/16 10:40 98.0 F 20 98/47 08/12/16 06:40 97.7 F 77 18 111/61 94 Intake and Output 08/12/16 08/12/16 08/13/16 15:59 23:59 07:59 Intake Total 940 / 940 350 / 350 340 / 340 Output Total 2600 / 2600 0 / 0 Balance -1660 / -1660 350 / 350 340 / 340 Intake: IV Fluids 100 / 100 350 / 350 100 / 100 Zosyn 3.375 GM In 100 / 100 100 / 100 100 / 100 Dextrose 5% (Minibag+) 100 ML 100 ML @ 25 mls/hr IVPB Q12H [facility] Rx#: [id number] Vancocin 750 MG In 250 / 250 Dextrose 5% 250 ML @ 250 mls/hr IVPB ONCE ONE Rx#: [id number] Oral 240 / 240 240 / 240 Intake, Rinseback and 600 / 600 Flushes Output: Urine 0 / 0 0 / 0 Total Dialysis Output 2600 / 2600 Other: Meal Breakfast Percent of Meal Consumed 50% 20% Stool Size Large Small Stool Consistency loose liquid Stool Characteristics Seedy Pasty Stool Color Brown Brown Yellow Green # Bowel Movement Diapers 1 1 Blood Glucose* 128 381 Hemodialysis Net Fluid 2000 Removed (mL) - General Appearance General appearance: Present: well-developed, well-nourished EENT: Present: ATNC Neck: Present: supple Additional Comments: unlabored. Cardiology: Present: regular rate Neurologic: Present: alert and oriented x3 - Lab 08/13/16 04:15 08/13/16 04:15 Most recent lab results Calcium 9.0 mg/dL (8.6-10.8) 08/13/16 04:15 Phosphorus 4.1 mg/dL (2.3-4.7) 08/11/16 07:48 Magnesium 1.8 mg/dL (1.6-2.6) 08/11/16 07:48 Consult Discharge Plan - Plan Referrals: Hugo Mercedes MD [Primary Care Provider] -
[2016-08-13] MEDS: Insulin LISPRO 300 UNITS/3 ML VIAL SQ SCH ×7 (07:30→21:35)
[2016-08-13] MEDS: Isosorbide MONOnitrate (24 HR) 60 MG TAB.ER.24H PO SCH (08:25)
[2016-08-13] MEDS: Aspirin 81 MG TAB.CHEW PO SCH (08:25)
[2016-08-13] MEDS: Nitroglycerin 0.1 MG PATCH.TD24 TP SCH (08:26)
[2016-08-13] MEDS: amLODIPine 5 MG TABLET PO SCH (08:26)
[2016-08-13] MEDS: Gabapentin 100 MG CAPSULE PO SCH (08:26)
[2016-08-13] MEDS: Metoprolol XL (24 HR) Succ 25 MG TAB.ER.24H PO SCH ×2 (08:27→21:44)
--- NOTE | 2016-08-13 10:27 | Nephrology Progress Note ---
Date of Encounter: 08/13/16 Time of Encounter: 10:25 - Assessment and Plan (1) ESRD (end stage renal disease) on dialysis Current Visit: No Status: Chronic Plan for HD tomorrow Avoid nephrotoxins if possible (2) Musculoskeletal chest pain Current Visit: Yes Status: Acute per primary team (3) Uncontrolled type 2 diabetes mellitus with insulin therapy Current Visit: Yes Status: Acute per primary team Subjective Principal diagnosis: ESRD Interval history: Patient seen and examined. States she is feeling ok right now. Objective - Vital Signs Vital signs: Vital Signs Temp Pulse Resp BP Pulse Ox 08/13/16 07:24 97.8 F 76 18 118/63 95 08/13/16 07:02 93 08/13/16 05:15 98.3 F 66 15 125/60 93 08/13/16 01:05 98.1 F 64 15 111/52 93 08/12/16 21:35 98.2 F 64 12 109/53 95 08/12/16 15:47 97.7 F 73 14 125/68 93 08/12/16 14:59 98.3 F 18 109/53 08/12/16 13:40 104/53 08/12/16 13:25 101/46 08/12/16 13:10 94/48 08/12/16 12:55 95/49 08/12/16 12:40 101/51 08/12/16 12:25 97/41 08/12/16 12:10 96/42 08/12/16 11:55 100/44 08/12/16 11:40 101/45 08/12/16 11:25 94/44 08/12/16 11:10 101/48 08/12/16 10:55 102/42 08/12/16 10:40 98.0 F 20 98/47 Intake and Output 08/12/16 08/13/16 08/13/16 23:59 07:59 15:59 Intake Total 350 / 350 460 / 460 Output Total 0 / 0 Balance 350 / 350 460 / 460 Intake: IV Fluids 350 / 350 100 / 100 Zosyn 3.375 GM In 100 / 100 100 / 100 Dextrose 5% (Minibag+) 100 ML 100 ML @ 25 mls/hr IVPB Q12H [facility] Rx#: [id number] Vancocin 750 MG In 250 / 250 Dextrose 5% 250 ML @ 250 mls/hr IVPB ONCE ONE Rx#: [id number] Oral 360 / 360 Output: Urine 0 / 0 Other: Percent of Meal Consumed 20% Stool Size Large Small Stool Consistency loose liquid Stool Characteristics Seedy Pasty Stool Color Brown Brown Yellow Green # Bowel Movement Diapers 1 1 Blood Glucose* 381 62 - General Appearance General appearance: Present: well-developed, well-nourished, obese EENT: Present: ATNC, mucous membranes moist, hearing intact, vision intact Neck: Present: supple Respiratory: Present: clear Cardiology: Present: no edema, normal S1, normal S2 Dialysis Vascular Access: Arteriovenous Fistula Gastrointestinal: Present: no tenderness, no guarding Integumentary: Present: warm and dry Neurologic: Present: alert and oriented x3 Psychiatric: Present: mood/affect appropriate, cooperative - Lab 08/13/16 04:15 08/13/16 04:15 Most recent lab results Calcium 9.0 mg/dL (8.6-10.8) 08/13/16 04:15 Phosphorus 4.1 mg/dL (2.3-4.7) 08/11/16 07:48 Magnesium 1.8 mg/dL (1.6-2.6) 08/11/16 07:48 Consult Discharge Plan - Plan Referrals: Hugo Mercedes MD [Primary Care Provider] -
[2016-08-13] MEDS: *HR* Morphine 2 MG/ML SYRINGE IVP PRN ×3 (11:49→22:28)
--- NOTE | 2016-08-13 18:25 | Internal Med Progress Note ---
Date of Encounter: 08/13/16 Time of Encounter: 12:00 - Assessment and plan (1) Uncontrolled type 2 diabetes mellitus with insulin therapy Current Visit: Yes Status: Acute Assessment and plan: 08/13/2016: Continue with pre-meal insulin and sliding scale coverage. I will change her Levemir dosing to 15 units in the morning and 8 units in the evening to provide more daytime coverage. 08/12/2016: Start insulin Levemir 20 units nightly. Add pre-meal insulin coverage. Continue with low-dose insulin sliding scale. 08/11/2016: Resume insulin sliding scale. Closely monitor blood glucose today 4 times daily. Insulin pump was deactivated. Check hemoglobin A1c. (2) Musculoskeletal chest pain Current Visit: Yes Status: Acute Assessment and plan: Lidocaine patch and will add oxycodone. (3) Hyperkalemia Current Visit: Yes Status: Acute Assessment and plan: 08/12/2016: Potassium is coming down with hemodialysis. I appreciate nephrology input. Continue to monitor. Low potassium renal diet. 08/11/2016: Her potassium was 5.4 on presentation, she was given 1 dose of Kayexalate, she had a regular bowel movement. In spite of that her potassium went up to 6.1. I discussed the case with nephrology. She will be evaluated this morning for emergent dialysis for refractory hyperkalemia. (4) Bilateral pleural effusion Current Visit: Yes Status: Acute Assessment and plan: Fluid management with hemodialysis. She does not require thoracentesis for diagnostic or therapeutic purposes. (5) Hypoglycemia Current Visit: Yes Status: Acute (6) Pulmonary edema Current Visit: Yes Status: Acute Assessment and plan: Secondary to fluid overload and. She is in no respiratory distress. She will have hemodialysis today with fluid removal. Qualifiers: Chronicity: acute Qualified Code(s): J81.0 - Acute pulmonary edema (7) ESRD (end stage renal disease) on dialysis Current Visit: Yes Status: Chronic (8) DVT prophylaxis Current Visit: No Status: Acute Assessment and plan: We will provide subcutaneous heparin. (9) HCAP (healthcare-associated pneumonia) Current Visit: No Status: Acute Assessment and plan: 08/13/2016: Chest x-ray after hemodialysis showed no significant improvement which is consistent with pneumonia more so than fluid overload. We will continue with Zosyn and vancomycin for 24 hours and monitor clinically. If no growth continue stopping antibiotics. 08/12/2016: Patient received 2 sessions of hemodialysis with fluid removal. We will repeat chest x-ray to determine if there is indeed pneumonia or was mostly fluid. There is a possibility of pneumonia reported on imaging studies. White blood cell count is elevated. The patient is not hypoxic. Due to her high risk of decline I will continue treatment with IV Zosyn. Follow up blood culture and sputum culture and these are negative consider stopping antibiotics. (10) Stage II decubitus ulcer Current Visit: Yes Status: Acute Assessment and plan: There are 2 small stage II decubitus ulcers on the left and right buttock left is slightly bigger. There is no discharge or erythema. Wound cultures sent from the emergency department grew VRE. This is likely skin contamination, there is no sign of infection and therefore there is no requirement to treat this. Will institute contact precautions to prevent dissemination of VRE in the healthcare setting. Qualifiers: Pressure ulcer location: buttock Laterality: left Qualified Code(s): L89.322 - Pressure ulcer of left buttock, stage 2 - Subjective Interval history: 08/13/2016: Blood glucose is better controlled. Her left-sided chest pain has improved over the last 2 days. Better with pain medication. Her blood glucose was 68 this morning. 08/12/2016: Blood glucose was elevated overnight. She continues to report moderate musculoskeletal left-sided chest pain where she pulled a muscle. Denies nausea vomiting. Denies associated shortness of breath. Patient presented to the hospital for evaluation of low blood glucose. Her fingerstick was 40 in the emergency department. She was given IV dextrose. Currently her glucose is greater than 500. She reports severe sharp pain in the left side of the chest where she says she sprained a muscle a few days ago while doing therapy. The pain improved at home with oxycodone. She denies any associated shortness of breath or nausea. - Constitutional Vitals: Temp Pulse Resp BP Pulse Ox 98.1 F 69 16 102/64 93 08/13/16 15:42 08/13/16 15:42 08/13/16 15:42 08/13/16 15:42 08/13/16 15:42 General appearance: Present: A&O X 3 (Moderate distress due to muscle pain.) - Respiratory Respiratory exam: Present: decreased breath sounds, CTAB. Absent: accessory muscle use, rales, rhonchi, wheezes - Cardiovascular Cardiovascular exam: Present: RRR, +S1, +S2. Absent: diastolic murmur, gallop, rubs, systolic murmur - GI/Abdominal GI/Abdominal exam: Present: normal bowel sounds, soft, no peritoneal signs. Absent: distended, tenderness - Extremities Exam Extremities exam: Present: warm, radial pulses palpable and symetrical. Absent : calf tenderness, cyanotic, pedal edema - Neurological Exam Neurological exam: Present: CN II-XII intact, oriented X3, no focal deficits. Absent: pronater drift, facial droop, speech deficit - Skin Skin exam: Present: dry Additional comments: 2 stage II skin ulcers on either buttock measuring 1 cm in the largest diameter , with no surrounding erythema, no discharge, no fluctuance or induration of the surrounding skin, no subcutaneous tract noted. Internal Medicine: Result - Labs CBC & Chem 7: 08/13/16 04:15 08/13/16 04:15 Labs: Short CBC 08/13/16 Range/Units 04:15 WBC 11.5 H (4.3-11.1) K/mcL Hgb 9.2 L (11.5-15.4) g/dL Hct 29.9 L (35.3-44.9) % Plt Count 282 (140-400) K/mcL Neutrophils # 4.8 (1.6-8.9) K/mcL BMP 08/13/16 04:15 Sodium 136 Potassium 5.1 H Chloride 99 Carbon Dioxide 20 BUN 60 H Creatinine 8.12 H Glucose 155 H Calcium 9.0 - Impressions Impressions Chest X-Ray 08/13/16 06:00 IMPRESSION: 1. No lines or tubes. 2. Stable cardiopulmonary status since 08/10/2016. D/ / 08/13/2016 08:34:18 Carol Guan MD / martine Interpreting Provider: Carol Guan MD Consult Discharge Plan - Plan Referrals: Hugo Mercedes MD [Primary Care Provider] -
[2016-08-13] MEDS ORDERED: Insulin DETEMIR 100 UNIT/ML X5UNITS SQ SCH (21:00)
[2016-08-14] MEDS: Piperacillin/Tazobactam 3.375 GM in D5% in Water (Mini-Bag+) 100 ML IVPB SCH ×2 (01:25→14:56)
[2016-08-14] MEDS: hydrALAZINE 25 MG TABLET PO SCH ×3 (01:26→16:50)
[2016-08-14] MEDS: *HR* Morphine 2 MG/ML SYRINGE IVP PRN ×3 (05:43→21:45)
[2016-08-14] MEDS: *HR* Heparin 5,000 UNIT/ML VIAL SQ SCH ×2 (05:43→17:39)
[2016-08-14 06:46] LABS: Calcium 8.8 mg/dL (8.6-10.8)
[2016-08-14 06:58] LABS: Vancomycin,Random 16.7 mcg/mL
[2016-08-14 06:59] LABS: Potassium 6.4 mEq/L (3.5-4.5)
[2016-08-14] MEDS ORDERED: Aminoglycoside Consult 1 EACH MC ONE (08:04)
[2016-08-14] MEDS: Insulin LISPRO 300 UNITS/3 ML VIAL SQ SCH ×7 (08:14→21:05)
[2016-08-14] MEDS: Aspirin 81 MG TAB.CHEW PO SCH (08:14)
[2016-08-14] MEDS: Insulin DETEMIR 100 UNIT/ML X5UNITS SQ SCH (08:15)
[2016-08-14] MEDS: Gabapentin 100 MG CAPSULE PO SCH (08:16)
[2016-08-14] MEDS: Nitroglycerin 0.1 MG PATCH.TD24 TP SCH (09:00)
[2016-08-14] MEDS: Metoprolol XL (24 HR) Succ 25 MG TAB.ER.24H PO SCH ×2 (09:00→21:45)
[2016-08-14] MEDS: amLODIPine 5 MG TABLET PO SCH (09:00)
[2016-08-14] MEDS: Isosorbide MONOnitrate (24 HR) 60 MG TAB.ER.24H PO SCH (09:13)
[2016-08-14 09:57] LABS: Basophils # 0.1 K/mcL (0.0-0.2); Eosinophils # 2.2 K/mcL (0.0-0.6); Eosinophils % 20.4 %; Hematocrit 31.5 % (35.3-44.9); Hemoglobin 9.8 g/dL (11.5-15.4); Immature Granulocytes % 0.4 % (0-4); Immature Platelets 1.7 % (1.1-6.1); Lymphocytes # 1.6 K/mcL (0.6-4.6); Lymphocytes % 15.4 %; Mean Corpuscular HGB Conc 31.1 g/dL (31.6-35.5); Mean Corpuscular Hemoglobin 31.6 pg (28.0-33.3); Mean Corpuscular Volume 101.6 fL (83.0-100.0); Mean Platelet Volume 9.5 fL (9.4-12.4); Monocytes # 1.2 K/mcL (0.0-1.3); Monocytes % 11.3 %; Neutrophils # 5.5 K/mcL (1.6-8.9); Nucleated Red Blood Cells 0.2 /100 WBC (0); Red Cell Distribution Width 18.7 % (11.5-14.5); Segmented Neutrophils % 51.5 %
[2016-08-14 09:59] LABS: Anisocytosis 1+ (Not Present)
[2016-08-14 10:00] LABS: Platelet Clumps Few (Not Present); Platelet Estimate Normal (Normal); Polychromasia 1+ (Not Present)
[2016-08-14 10:03] LABS: Platelet Count 311 K/mcL (140-400)
[2016-08-14] MEDS ORDERED: 0.9 % Sodium Chloride 250 ML IVC PRN (10:08)
--- NOTE | 2016-08-14 10:41 | Nephrology Progress Note ---
Date of Encounter: 08/14/16 Time of Encounter: 10:39 - Assessment and Plan (1) ESRD (end stage renal disease) on dialysis Current Visit: Yes Status: Chronic Continue HD MWF. Renal dose medications Renal diet I'm concerned about the lack of change in her BMP after dialysis and her significant hyperkalemia today. Will check pre and post BUN to calculate a URR and determine if a fistulogram is warranted. (2) Diabetes mellitus, type 2 Current Visit: No Status: Chronic Uncontrolled. Will defer to primary team. Qualifiers: Diabetes mellitus complication status: with kidney complications Diabetes mellitus complication detail: with chronic kidney disease Diabetes mellitus intermediate designer insulin use: with intermediate designer use Chronic kidney disease stage: on chronic dialysis Qualified Code(s): E11.22 - Type 2 diabetes mellitus with diabetic chronic kidney disease (3) Anemia Current Visit: No Status: Chronic hemoglobin stable. If she stays in the hospital for an extended period of time she will need EPO. Qualifiers: Anemia type: unspecified type Qualified Code(s): D64.9 - Anemia, unspecified (4) Metabolic acidosis Current Visit: Yes Status: Acute should improve with dialysis. Subjective Principal diagnosis: ESRD Interval history: Patient was seen while in dialysis. She has no new complaint. Her review of systems was otherwise stable. She is concerned about the fluctuations in her blood sugar. She is concerned about her hyperkalemia. She does not want to go home "too early". Objective - Vital Signs Vital signs: Vital Signs Temp Pulse Resp BP Pulse Ox 08/14/16 08:25 97.8 F 73 18 125/62 92 08/14/16 04:15 97.8 F 72 17 138/71 93 08/14/16 00:53 97.7 F 78 17 163/75 93 08/13/16 19:45 98.0 F 72 17 108/73 93 08/13/16 15:42 98.1 F 69 16 102/64 93 08/13/16 11:10 98.2 F 71 16 96/57 92 Intake and Output 08/13/16 08/14/16 08/14/16 23:59 07:59 15:59 Intake Total 1480 / 1480 820 / 820 240 / 240 Output Total 0 / 0 0 / 0 Balance 1480 / 1480 820 / 820 240 / 240 Intake: IV Fluids 100 / 100 Zosyn 3.375 GM In 100 / 100 Dextrose 5% (Minibag+) 100 ML 100 ML @ 25 mls/hr IVPB Q12H [facility] Rx#: [id number] Oral 1480 / 1480 720 / 720 240 / 240 Output: Urine 0 / 0 0 / 0 Other: Meal Dinner Breakfast Percent of Meal Consumed 100% 50% Stool Size Small Large Stool Consistency loose loose liquid Stool Color Maximino Colored Brown # Bowel Movements 1 1 Weight 89.721 kg Blood Glucose* 90 344 Patient Weight 08/14/16 23:59 Weight 89.721 kg - General Appearance General appearance: Present: well-developed, well-nourished EENT: Present: ATNC Neck: Present: supple Respiratory: Present: clear (anteriorly) Cardiology: Present: edema (trace - 1+ edema), regular rate Dialysis Vascular Access: Arteriovenous Fistula Integumentary: Present: warm and dry Neurologic: Present: alert and oriented x3 Psychiatric: Present: mood/affect appropriate - Lab 08/14/16 06:26 08/14/16 06:26 Most recent lab results Calcium 8.8 mg/dL (8.6-10.8) 08/14/16 06:26 Phosphorus 4.1 mg/dL (2.3-4.7) 08/11/16 07:48 Magnesium 1.8 mg/dL (1.6-2.6) 08/11/16 07:48 Consult Discharge Plan - Plan Referrals: Hugo Mercedes MD [Primary Care Provider] -
[2016-08-14 11:03] LABS: Prothrombin Time 10.8 Seconds (9.4-12.1)
[2016-08-14 11:36] LABS: Blood Urea Nitrogen 23 mg/dL (7-20)
--- NOTE | 2016-08-14 13:54 | Internal Med Progress Note ---
Date of Encounter: 08/14/16 Time of Encounter: 11:45 - Assessment and plan (1) HCAP (healthcare-associated pneumonia) Current Visit: Yes Status: Acute Assessment and plan: Healthcare associated pneumonia due to nonspecific organism. Cultures have been negative. WBC count is improving. We will start to de-escalate antibiotics. Currently on Zosyn and vancomycin. We will stop vancomycin. Moderate risk for complications. (2) Uncontrolled type 2 diabetes mellitus with insulin therapy Current Visit: Yes Status: Acute Assessment and plan: Sugars are too elevated today. No more hypoglycemic episodes. Patient did not receive Lorimer last night is here to review. Refused at present. Discussed this with the patient and explained to her the importance of taking insulin as prescribed. We will continue to monitor blood sugars closely. (3) Bilateral pleural effusion Current Visit: Yes Status: Acute Assessment and plan: Being managed with hemodialysis. (4) Diabetes mellitus, type 2 Current Visit: No Status: Chronic Assessment and plan: Blood sugars remain elevated. Continue sliding scale insulin. Patient is highly sensitive to insulin with very labile blood sugars. Currently on March 15 units in the morning and 8 units at bedtime. Also on scheduled 3 units 3 times a day with meals and no correction sliding scale insulin. Qualifiers: Diabetes mellitus complication status: with kidney complications Diabetes mellitus complication detail: with chronic kidney disease Diabetes mellitus marketing technology specialist insulin use: with longterm use Chronic kidney disease stage: on chronic dialysis Qualified Code(s): E11.22 - Type 2 diabetes mellitus with diabetic chronic kidney disease (5) End-stage renal disease on hemodialysis Current Visit: Yes Status: Chronic Assessment and plan: Continue dialysis per nephrology recommendations. (6) Hyperkalemia Current Visit: Yes Status: Resolved Assessment and plan: Hyperkalemia persists. Discussed with nephrology. Concern about malfunctioning AV fistula. Follow nephrology recommendations. (7) Musculoskeletal chest pain Current Visit: Yes Status: Acute Assessment and plan: Lidocaine patch in place. Patient continues to have intermittent chest pain. This is due to costochondritis/myofascial strain. (8) Pulmonary edema Current Visit: Yes Status: Acute Assessment and plan: Clinically getting better. Continue volume management with hemodialysis. On 3.5 L nasal cannula. Qualifiers: Chronicity: acute Qualified Code(s): J81.0 - Acute pulmonary edema (9) Stage II decubitus ulcer Current Visit: Yes Status: Acute Assessment and plan: Continue current management. Although wound culture was positive for VRE, as the patient is not exhibiting any signs of clinical infection and the wound does not appear to be infected, this is currently not being treated as it is most likely contaminant. Qualifiers: Pressure ulcer location: buttock Laterality: left Qualified Code(s): L89.322 - Pressure ulcer of left buttock, stage 2 - Subjective Interval history: Saw patient in dialysis. She complains of feeling tired. She continues to have some chest tenderness. No nausea or vomiting. Tolerating diet well. No shortness of breath or palpitations. - Constitutional Vitals: Temp Pulse Resp BP Pulse Ox 97.8 F 73 18 125/62 92 08/14/16 08:25 08/14/16 08:25 08/14/16 08:25 08/14/16 08:25 08/14/16 08:25 General appearance: Present: cooperative, mild distress, A&O X 3, pleasant, answers questions appropriately - Neck Neck exam general surgery: Present: supple, trachea midline. Absent: lymphadenopathy - Respiratory Respiratory exam: Present: chest wall tenderness (Upper central), CTAB. Absent : accessory muscle use, rales, rhonchi, wheezes - Cardiovascular Cardiovascular exam: Present: RRR, +S1, +S2. Absent: diastolic murmur, gallop, rubs, systolic murmur - GI/Abdominal GI/Abdominal exam: Present: normal bowel sounds, soft, no peritoneal signs. Absent: distended, tenderness - Extremities Exam Extremities exam: Present: warm, radial pulses palpable and symetrical. Absent : calf tenderness, cyanotic, pedal edema - Neurological Exam Neurological exam: Present: alert, oriented X3, no focal deficits. Absent: facial droop, speech deficit - Skin Skin exam: Present: dry, intact Internal Medicine: Result - Labs CBC & Chem 7: 08/14/16 06:26 08/14/16 10:54 Labs: Short CBC 08/14/16 Range/Units 06:26 WBC 10.6 (4.3-11.1) K/mcL Hgb 9.8 L (11.5-15.4) g/dL Hct 31.5 L (35.3-44.9) % Plt Count 311 (140-400) K/mcL Neutrophils # 5.5 (1.6-8.9) K/mcL BMP 08/14/16 08/14/16 06:26 10:54 Sodium 134 L Potassium 6.4 H D Chloride 98 Carbon Dioxide 18 L BUN 64 H 23 H D Creatinine 8.93 H Glucose 424 H Calcium 8.8 - ABG Interpretation ABG results: PT/INR, D-dimer PT 10.8 Seconds (9.4-12.1) 08/14/16 09:45 - Impressions Impressions Chest X-Ray 08/13/16 06:00 IMPRESSION: 1. No lines or tubes. 2. Stable cardiopulmonary status since 08/10/2016. D/ / 08/13/2016 08:34:18 Carol Guan MD / [email or web address] Interpreting Provider: Carol Guan MD Consult Discharge Plan - Plan Referrals: Hugo Mercedes MD [Primary Care Provider] - Prescriptions: Supplies [SUPPLIES] 1 each .ROUTE QID #125 each - Attending Attestation This document has been at least partially created by [employer] recognition technology by Dr. Ramirez. Errors in grammar, wording or other phrases may exist. If errors are found after the documentation is signed, they will be addressed individually in the addendum section of this document when appropriate.
[2016-08-14 15:03] LABS: Blood Urea Nitrogen 15 mg/dL (7-20)
[2016-08-14] MEDS ORDERED: Vancomycin 750 MG in D5% in Water 250 ML IVPB ONE (16:00)
[2016-08-14] MEDS ORDERED: Insulin DETEMIR 100 UNIT/ML X5UNITS SQ SCH (21:00)
[2016-08-15] MEDS: hydrALAZINE 25 MG TABLET PO SCH ×3 (01:16→17:20)
[2016-08-15] MEDS: Piperacillin/Tazobactam 3.375 GM in D5% in Water (Mini-Bag+) 100 ML IVPB SCH ×2 (01:17→13:02)
[2016-08-15 06:22] LABS: Basophils # 0.1 K/mcL (0.0-0.2); Basophils % 1.4 %; Eosinophils # 2.3 K/mcL (0.0-0.6); Eosinophils % 22.4 %; Hemoglobin 9.6 g/dL (11.5-15.4); Immature Granulocytes % 0.4 % (0-4); Lymphocytes # 1.9 K/mcL (0.6-4.6); Mean Corpuscular Hemoglobin 30.7 pg (28.0-33.3); Mean Platelet Volume 9.6 fL (9.4-12.4); Monocytes # 1.7 K/mcL (0.0-1.3); Monocytes % 16.1 %; Neutrophils # 4.3 K/mcL (1.6-8.9); Nucleated Red Blood Cells 0.2 /100 WBC (0); Platelet Count 247 K/mcL (140-400); Red Blood Count 3.13 M/mcL (3.82-4.97); Red Cell Distribution Width 18.6 % (11.5-14.5); Segmented Neutrophils % 41.7 %
[2016-08-15] MEDS: *HR* Heparin 5,000 UNIT/ML VIAL SQ SCH ×2 (06:33→17:21)
[2016-08-15 06:41] LABS: Calcium 8.9 mg/dL (8.6-10.8)
[2016-08-15 06:43] LABS: Potassium 5.2 mEq/L (3.5-4.5)
[2016-08-15 07:18] LABS: Platelet Clumps Few (Not Present); Platelet Estimate Normal (Normal)
[2016-08-15 07:19] LABS: Anisocytosis 1+ (Not Present)
[2016-08-15] MEDS: Insulin LISPRO 300 UNITS/3 ML VIAL SQ SCH ×7 (08:49→21:14)
[2016-08-15] MEDS: Gabapentin 100 MG CAPSULE PO SCH (08:50)
[2016-08-15] MEDS: Aspirin 81 MG TAB.CHEW PO SCH (08:50)
[2016-08-15] MEDS: Nitroglycerin 0.1 MG PATCH.TD24 TP SCH (08:50)
[2016-08-15] MEDS: Isosorbide MONOnitrate (24 HR) 60 MG TAB.ER.24H PO SCH (08:50)
[2016-08-15] MEDS: amLODIPine 5 MG TABLET PO SCH (08:51)
[2016-08-15] MEDS: Insulin DETEMIR 100 UNIT/ML X5UNITS SQ SCH ×2 (09:00→21:14)
[2016-08-15] MEDS: *HR* Morphine 2 MG/ML SYRINGE IVP PRN ×2 (09:00→15:48)
--- NOTE | 2016-08-15 10:12 | Nephrology Progress Note ---
Date of Encounter: 08/15/16 Time of Encounter: 10:10 - Assessment and Plan (1) ESRD (end stage renal disease) on dialysis Current Visit: No Status: Chronic Plan for HD tomorrow Continue renal diet Avoid nephrotoxins if possible (2) Uncontrolled type 2 diabetes mellitus with insulin therapy Current Visit: Yes Status: Acute High risk of returning to hospital due to uncontrolled diabetes per primary team (3) Hyperkalemia Current Visit: Yes Status: Acute Concern regarding lack of change in BMP after dialysis and elevated K+ level. Will calculate a URR and determine if a fistulogram is warranted. Anticipate continued hospitalization due to uncontrolled blood sugars; while patient here will investigate cause of hyperkalemia and possible poor functioning fistual. (4) Musculoskeletal chest pain Current Visit: Yes Status: Acute per primary team Subjective Principal diagnosis: ESRD Interval history: Patient seen and examined. States she is feeling better today Objective - Vital Signs Vital signs: Vital Signs Temp Pulse Resp BP Pulse Ox 08/15/16 08:48 98.2 F 69 12 129/61 94 08/15/16 00:03 97.7 F 66 14 133/65 95 08/14/16 20:16 97.8 F 87 14 134/72 91 08/14/16 15:11 98.2 F 85 16 120/76 93 08/14/16 14:10 98.0 F 18 120/67 08/14/16 14:00 102/56 08/14/16 13:15 106/62 08/14/16 12:45 117/68 08/14/16 12:15 130/60 08/14/16 12:00 121/58 08/14/16 11:45 116/65 08/14/16 11:30 114/59 08/14/16 11:15 107/68 08/14/16 11:00 144/62 08/14/16 10:45 120/69 08/14/16 10:30 125/60 08/14/16 10:15 133/75 Intake and Output 08/14/16 08/15/16 08/15/16 23:59 07:59 15:59 Intake Total 400 / 400 100 / 100 Output Total 0 / 0 0 / 0 Balance 400 / 400 100 / 100 Intake: IV Fluids 100 / 100 100 / 100 Zosyn 3.375 GM In 100 / 100 100 / 100 Dextrose 5% (Minibag+) 100 ML 100 ML @ 25 mls/hr IVPB Q12H [facility] Rx#: [id number] Oral 300 / 300 0 / 0 Output: Urine 0 / 0 0 / 0 Other: Meal Dinner Percent of Meal Consumed 50% Stool Size Moderate Small Stool Consistency loose soft Stool Characteristics Seedy Seedy Stool Color Brown Brown # Bowel Movements 1 1 # Bowel Movement Diapers 1 Weight 89.9 kg Blood Glucose* 80 Patient Weight 08/15/16 23:59 Weight 89.9 kg - General Appearance General appearance: Present: well-developed, well-nourished, obese EENT: Present: ATNC, mucous membranes moist, hearing intact, vision intact Neck: Present: supple Respiratory: Present: clear Cardiology: Present: no edema, normal S1, normal S2 Dialysis Vascular Access: Arteriovenous Fistula Gastrointestinal: Present: no tenderness, no guarding Integumentary: Present: warm and dry Neurologic: Present: alert and oriented x3 Psychiatric: Present: mood/affect appropriate, cooperative - Lab 08/15/16 05:00 08/15/16 05:00 Most recent lab results Calcium 8.9 mg/dL (8.6-10.8) 08/15/16 05:00 Phosphorus 4.1 mg/dL (2.3-4.7) 08/11/16 07:48 Magnesium 1.8 mg/dL (1.6-2.6) 08/11/16 07:48 Consult Discharge Plan - Plan Referrals: Hugo Mercedes MD [Primary Care Provider] - 08/23/16 2:00 pm Prescriptions: Supplies [SUPPLIES] 1 each .ROUTE QID #125 each
--- NOTE | 2016-08-15 12:18 | Internal Med Progress Note ---
Date of Encounter: 08/15/16 Time of Encounter: 12:16 - Assessment and plan (1) HCAP (healthcare-associated pneumonia) Current Visit: Yes Status: Acute Assessment and plan: Cultures remained negative. WBC count remains normal. On Zosyn. We will transition to oral Augmentin. (2) Uncontrolled type 2 diabetes mellitus with insulin therapy Current Visit: Yes Status: Acute Assessment and plan: Blood sugars were elevated yesterday but did not improve overnight. Patient is having higher levels in the morning. Will adjust insulin regimen and put patient on 10 units twice daily of Levemir. (3) Bilateral pleural effusion Current Visit: Yes Status: Acute Assessment and plan: Chronic. Stable. 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 Concern for poorly functioning AV fistula. Nephrology recommends fistulogram. We will await results of that. Patient's potassium is better today at 5.2. (6) Hyperkalemia Current Visit: Yes Status: Acute (7) Musculoskeletal chest pain Current Visit: Yes Status: Acute Assessment and plan: Supportive care with lidocaine patch. Due to costochondritis (8) Pulmonary edema Current Visit: Yes Status: Acute Assessment and plan: Clinically getting better. Patient's respiratory status is much improved. Qualifiers: Chronicity: acute Qualified Code(s): J81.0 - Acute pulmonary edema (9) Stage II decubitus ulcer Current Visit: Yes Status: Acute Assessment and plan: Continue local wound care. Pressure ulcer prophylaxis. Patient does require hospital bed for better management of this ulcer due to need for frequent repositioning and pressure reduction measures. Qualifiers: Pressure ulcer location: buttock Laterality: left Qualified Code(s): L89.322 - Pressure ulcer of left buttock, stage 2 - Subjective Interval history: Patient is lying in bed. Appears comfortable. Denies any shortness of breath or palpitations. Chest pain is tolerable. Patient is Concerned about her high potassium levels. - Constitutional Vitals: Temp Pulse Resp BP Pulse Ox 98.2 F 69 12 129/61 94 08/15/16 08:48 08/15/16 08:48 08/15/16 08:48 08/15/16 08:48 08/15/16 08:48 General appearance: Present: cooperative, mild distress, A&O X 3, pleasant, answers questions appropriately - Respiratory Respiratory exam: Present: chest wall tenderness (Upper central chest wall tenderness), CTAB. Absent: accessory muscle use, rales, rhonchi, wheezes - Cardiovascular Cardiovascular exam: Present: RRR, +S1, +S2. Absent: diastolic murmur, gallop, rubs, systolic murmur - GI/Abdominal GI/Abdominal exam: Present: normal bowel sounds, soft, no peritoneal signs. Absent: distended, tenderness - Extremities Exam Extremities exam: Present: warm, radial pulses palpable and symetrical. Absent : calf tenderness, cyanotic, pedal edema - Neurological Exam Neurological exam: Present: alert, oriented X3, no focal deficits. Absent: facial droop, speech deficit Internal Medicine: Result - Labs CBC & Chem 7: 08/15/16 05:00 08/15/16 05:00 Labs: Short CBC 08/15/16 Range/Units 05:00 WBC 10.3 (4.3-11.1) K/mcL Hgb 9.6 L (11.5-15.4) g/dL Hct 31.0 L (35.3-44.9) % Plt Count 247 (140-400) K/mcL Neutrophils # 4.3 (1.6-8.9) K/mcL BMP 08/14/16 08/15/16 14:41 05:00 Sodium 134 L Potassium 5.2 H D Chloride 97 L Carbon Dioxide 20 BUN 15 55 H D Creatinine 7.95 H Glucose 308 H Calcium 8.9 - ABG Interpretation ABG results: PT/INR, D-dimer PT 10.8 Seconds (9.4-12.1) 08/14/16 09:45 Consult Discharge Plan - Plan Referrals: Hugo Mercedes MD [Primary Care Provider] - 04/21/17 2:00 pm Prescriptions: RX: Supplies [SUPPLIES] 1 each .ROUTE QID #125 each - Attending Attestation This document has been at least partially created by [employer] recognition technology by Dr. Ramirez. Errors in grammar, wording or other phrases may exist. If errors are found after the documentation is signed, they will be addressed individually in the addendum section of this document when appropriate.
[2016-08-15] MEDS ORDERED: Amoxicillin/Clavulanate 500 MG TABLET PO SCH (17:00)
[2016-08-15] MEDS: *HR* Dextrose 50 % in Water (Syg) 50 ML SYRINGE IVP PRN (17:17)
[2016-08-15] MEDS: levoFLOXacin 500 MG TABLET PO SCH (17:20)
[2016-08-15] MEDS ORDERED: methylPREDNISolone 4 MG TABLET PO ONE (19:00)
[2016-08-16] MEDS: hydrALAZINE 25 MG TABLET PO SCH ×3 (01:26→16:50)
[2016-08-16] MEDS: *HR* Morphine 2 MG/ML SYRINGE IVP PRN ×4 (01:29→20:31)
[2016-08-16] MEDS ORDERED: methylPREDNISolone 4 MG TABLET PO ONE (05:00)
[2016-08-16] MEDS: *HR* Heparin 5,000 UNIT/ML VIAL SQ SCH ×2 (06:20→16:51)
[2016-08-16 06:48] LABS: Calcium 8.9 mg/dL (8.6-10.8)
[2016-08-16 07:07] LABS: Potassium 6.3 mEq/L (3.5-4.5)
[2016-08-16] MEDS: Insulin LISPRO 300 UNITS/3 ML VIAL SQ SCH ×7 (07:35→20:33)
[2016-08-16] MEDS ORDERED: 0.9 % Sodium Chloride 250 ML IVC PRN (08:07)
[2016-08-16] MEDS ORDERED: 0.9 % Sodium Chloride 2,000 ML ONE (08:24)
[2016-08-16] MEDS: Gabapentin 100 MG CAPSULE PO SCH (09:45)
[2016-08-16] MEDS: Aspirin 81 MG TAB.CHEW PO SCH (09:46)
[2016-08-16] MEDS: Isosorbide MONOnitrate (24 HR) 60 MG TAB.ER.24H PO SCH (09:46)
[2016-08-16] MEDS: amLODIPine 5 MG TABLET PO SCH (09:47)
[2016-08-16] MEDS: Nitroglycerin 0.1 MG PATCH.TD24 TP SCH (09:52)
[2016-08-16] MEDS: Insulin DETEMIR 100 UNIT/ML X5UNITS SQ SCH (09:55)
--- NOTE | 2016-08-16 10:56 | Nephrology Progress Note ---
Date of Encounter: 08/16/16 Time of Encounter: 10:54 - Assessment and Plan (1) ESRD (end stage renal disease) on dialysis Current Visit: Yes Status: Chronic Continue HD MWF. Renal dose medications Renal diet I'm concerned about the lack of change in her BMP after dialysis and her hyperkalemia despite dialysis. Awaiting fistulogram. (2) Diabetes mellitus, type 2 Current Visit: Yes Status: Chronic Uncontrolled. Will defer to primary team. (3) Anemia Current Visit: No Status: Chronic hemoglobin stable. If she stays in the hospital for an extended period of time she will need EPO. Qualifiers: Anemia type: unspecified type Qualified Code(s): D64.9 - Anemia, unspecified (4) Metabolic acidosis Current Visit: Yes Status: Acute improved with dialysis. (5) Uncontrolled type 2 diabetes mellitus with insulin therapy Current Visit: Yes Status: Acute Wide fluctuations in her blood sugar. Patient concerned about hypoglycemia at home which is reasonable. Will defer to primary team. Consult can coverer. Subjective Principal diagnosis: ESRD Interval history: Patient was seen. She has no new complaint. Her review of systems was otherwise stable. She is concerned about the fluctuations in her blood sugar. She is concerned about her hyperkalemia. She does not want to go home "too early". She and her have noted wide fluctuations in her blood sugar. Objective - Vital Signs Vital signs: Vital Signs Temp Pulse Resp BP Pulse Ox 08/16/16 06:50 98.0 F 61 18 135/64 95 08/16/16 04:49 98.0 F 58 17 135/63 95 08/16/16 01:38 98.0 F 64 18 142/71 92 08/15/16 19:43 92 08/15/16 19:34 98.1 F 66 15 113/62 92 08/15/16 16:45 98 F 75 16 127/57 93 08/15/16 14:25 97.6 F 62 16 130/66 92 Intake and Output 08/15/16 08/16/16 08/16/16 23:59 07:59 15:59 Intake Total 120 / 120 360 / 360 Output Total 0 / 0 0 / 0 Balance 120 / 120 360 / 360 Intake: Oral 120 / 120 360 / 360 Output: Urine 0 / 0 0 / 0 Other: Stool Size Large Moderate Stool Consistency loose loose soft Stool Color Brown Brown # Voids 1 # Bowel Movements 1 1 # Bowel Movement Diapers 1 Weight 98.9 kg Blood Glucose* 113 464 Patient Weight 08/16/16 23:59 Weight 98.9 kg - General Appearance General appearance: Present: well-developed, well-nourished EENT: Present: ATNC Neck: Present: supple Additional Comments: respirations are unlabored. Cardiology: Present: regular rate Dialysis Vascular Access: Arteriovenous Fistula Integumentary: Present: warm and dry Neurologic: Present: alert and oriented x3 Psychiatric: Present: mood/affect appropriate - Lab 08/15/16 05:00 08/16/16 06:20 Most recent lab results Calcium 8.9 mg/dL (8.6-10.8) 08/16/16 06:20 Phosphorus 4.1 mg/dL (2.3-4.7) 08/11/16 07:48 Magnesium 1.8 mg/dL (1.6-2.6) 08/11/16 07:48 Consult Discharge Plan - Plan Referrals: Hugo Mercedes MD [Primary Care Provider] - 08/23/16 2:00 pm Prescriptions: Supplies [SUPPLIES] 1 each .ROUTE QID #125 each
[2016-08-16] MEDS ORDERED: Heparin 1,000 UNITS/500 mL NS 500 ML ONE (12:36)
[2016-08-16] MEDS ORDERED: 0.9 % Sodium Chloride 500 ML ONE ×2 (12:36→14:43)
[2016-08-16] MEDS ORDERED: *HR* Midazolam HCl 2 MG/2 ML VIAL IV PRN (14:24)
[2016-08-16] MEDS ORDERED: ceFAZolin 1,000 MG in D5% in Water (Mini-Bag+) 100 ML IVPB ONE (14:24)
[2016-08-16] MEDS ORDERED: *HR* FentaNYL (PF) 100 MCG/2 ML VIAL ONE (14:41)
[2016-08-16] MEDS ORDERED: *HR* Midazolam HCl 2 MG/2 ML VIAL ONE (14:41)
[2016-08-16] MEDS ORDERED: *HR* Heparin 5,000 UNIT/ML VIAL ONE (14:48)
[2016-08-16] MEDS: *HR* FentaNYL (PF) 100 MCG/2 ML VIAL IV PRN ×2 (14:50→15:09)
--- NOTE | 2016-08-16 15:04 | Internal Med Progress Note ---
Date of Encounter: 08/16/16 Time of Encounter: 09:25 - Assessment and plan (1) HCAP (healthcare-associated pneumonia) Current Visit: Yes Status: Acute Assessment and plan: Complete treatment course with levofloxacin. Blood cultures remained negative. Patient is clinically getting better. (2) Uncontrolled type 2 diabetes mellitus with insulin therapy Current Visit: Yes Status: Acute Assessment and plan: Blood sugars are elevated this morning. They were low yesterday afternoon. She did not receive Levemir at bedtime. We will decrease his Levemir dosage to 5 units twice daily. We will avoid skipping any further dosages. Patient is a very brittle diabetic with hypersensitivity to insulin. We will continue to monitor blood sugars closely. (3) Bilateral pleural effusion Current Visit: Yes Status: Acute Assessment and plan: Being managed with hemodialysis. 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 Fistulogram to be done today due to concern for poorly functioning AV fistula. (6) Hyperkalemia Current Visit: Yes Status: Acute Assessment and plan: Potassium again elevated today. Patient will be dialyzed to treat this. High risk for complications. (7) Musculoskeletal chest pain Current Visit: Yes Status: Acute Assessment and plan: Being treated with lidocaine patch. Improving (8) Pulmonary edema Current Visit: Yes Status: Acute Assessment and plan: Improving with hemodialysis. Patient is clinically getting better. Qualifiers: Chronicity: acute Qualified Code(s): J81.0 - Acute pulmonary edema (9) Stage II decubitus ulcer Current Visit: Yes Status: Acute Assessment and plan: Decubitus ulcer prophylaxis. Qualifiers: Pressure ulcer location: buttock Laterality: left Qualified Code(s): L89.322 - Pressure ulcer of left buttock, stage 2 - Subjective Interval history: Patient appears comfortable. Denies any new complaints at this time. No shortness of breath. No new pain. Awaiting fistulogram that scheduled for later today. - Constitutional Vitals: Temp Pulse Resp BP Pulse Ox 98.1 F 70 20 148/78 94 08/16/16 14:15 08/16/16 14:59 08/16/16 14:59 08/16/16 14:59 08/16/16 14:59 General appearance: Present: cooperative, mild distress, A&O X 3, pleasant, answers questions appropriately - Respiratory Respiratory exam: Present: CTAB. Absent: accessory muscle use, rales, rhonchi, wheezes - Cardiovascular Cardiovascular exam: Present: RRR, +S1, +S2. Absent: diastolic murmur, gallop, rubs, systolic murmur - GI/Abdominal GI/Abdominal exam: Present: normal bowel sounds, soft, no peritoneal signs. Absent: distended, tenderness - Extremities Exam Extremities exam: Present: warm, radial pulses palpable and symetrical. Absent : calf tenderness, cyanotic, pedal edema - Neurological Exam Neurological exam: Present: alert, oriented X3, no focal deficits. Absent: facial droop, speech deficit - Skin Skin exam: Present: dry, intact Internal Medicine: Result - Labs CBC & Chem 7: 08/15/16 05:00 08/16/16 06:20 Labs: BMP 08/16/16 06:20 Sodium 131 L Potassium 6.3 H D Chloride 95 L Carbon Dioxide 19 BUN 70 H D Creatinine 8.29 H Glucose 456 H Calcium 8.9 - ABG Interpretation ABG results: PT/INR, D-dimer PT 10.8 Seconds (9.4-12.1) 08/14/16 09:45 Consult Discharge Plan - Plan Referrals: Hugo Mercedes MD [Primary Care Provider] - 08/23/16 2:00 pm Prescriptions: Supplies [SUPPLIES] 1 each .ROUTE QID #125 each - Attending Attestation This document has been at least partially created by [employer] recognition technology by Dr. Ramirez. Errors in grammar, wording or other phrases may exist. If errors are found after the documentation is signed, they will be addressed individually in the addendum section of this document when appropriate.
--- NOTE | 2016-08-16 15:25 | IR Procedure Note ---
Date of procedure: 08/16/16 Consent Obtained: Verbal consent, Written consent Timeout: Correct patient and procedure verified, Correct site verified, Time out performed, Skin prep completed Local anesthetic: Lidocaine 1% Indications: Poorly functioning AV fistula Procedure Performed: AV fistulgrams and venoplasty Site/Technique: AV fistulograms and venoplasty of inflow and outflow stenoses performed Results/Findings: Inflow and outflow venous stenosis venoplastied with good flow post Estimated blood loss (cc): 4 Complications: None; Tolerated procedure well Post Procedure Treatment Plan: Bedrest x1 hour
[2016-08-16] MEDS ORDERED: Insulin DETEMIR 100 UNIT/ML X5UNITS SQ SCH (21:00)
[2016-08-17] MEDS: *HR* Morphine 2 MG/ML SYRINGE IVP PRN ×4 (00:33→21:16)
[2016-08-17] MEDS: hydrALAZINE 25 MG TABLET PO SCH ×3 (00:33→18:05)
[2016-08-17 04:39] LABS: Basophils % 0.3 %; Hematocrit 32.3 % (35.3-44.9); Hemoglobin 10.3 g/dL (11.5-15.4); Immature Granulocytes % 0.8 % (0-4); Lymphocytes # 1.2 K/mcL (0.6-4.6); Lymphocytes % 15.9 %; Mean Corpuscular HGB Conc 31.9 g/dL (31.6-35.5); Mean Corpuscular Hemoglobin 30.8 pg (28.0-33.3); Mean Corpuscular Volume 96.7 fL (83.0-100.0); Mean Platelet Volume 10.4 fL (9.4-12.4); Monocytes # 0.6 K/mcL (0.0-1.3); Monocytes % 7.6 %; Neutrophils # 5.7 K/mcL (1.6-8.9); Platelet Count 287 K/mcL (140-400); Red Blood Count 3.34 M/mcL (3.82-4.97); Red Cell Distribution Width 18.2 % (11.5-14.5); Segmented Neutrophils % 75.4 %
[2016-08-17 04:56] LABS: Calcium 9.3 mg/dL (8.6-10.8)
[2016-08-17 05:01] LABS: Platelet Estimate Normal (Normal)
[2016-08-17 05:03] LABS: Potassium 6.5 mEq/L (3.5-4.5)
[2016-08-17] MEDS ORDERED: Lactulose Oral Soln 20 GM/30 ML UDC PO STA (05:09)
[2016-08-17] MEDS ORDERED: Calcium Gluconate 1,000 MG in D5% in Water 100 ML IVPB ONE (05:09)
[2016-08-17] MEDS: *HR* Heparin 5,000 UNIT/ML VIAL SQ SCH ×2 (05:37→18:06)
[2016-08-17] MEDS: Insulin LISPRO 300 UNITS/3 ML VIAL SQ SCH ×7 (08:13→21:28)
[2016-08-17 08:29] LABS: Calcium 9.4 mg/dL (8.6-10.8); Potassium 6.2 mEq/L (3.5-4.5)
[2016-08-17] MEDS ORDERED: 0.9 % Sodium Chloride 250 ML IVC PRN (08:32)
[2016-08-17] MEDS ORDERED: 0.9 % Sodium Chloride 1,000 ML PRIME SCH (08:45)
--- NOTE | 2016-08-17 11:08 | Nephrology Progress Note ---
Date of Encounter: 08/17/16 Time of Encounter: 11:05 - Assessment and Plan (1) ESRD (end stage renal disease) on dialysis Current Visit: Yes Status: Chronic Continue HD MWF. Renal dose medications Renal diet (2) Diabetes mellitus, type 2 Current Visit: Yes Status: Chronic Uncontrolled. Will defer to primary team. (3) Anemia Current Visit: No Status: Chronic hemoglobin stable. If she stays in the hospital for an extended period of time she will need EPO. Qualifiers: Anemia type: unspecified type Qualified Code(s): D64.9 - Anemia, unspecified (4) Metabolic acidosis Current Visit: Yes Status: Acute improved with dialysis. (5) Uncontrolled type 2 diabetes mellitus with insulin therapy Current Visit: Yes Status: Acute Wide fluctuations in her blood sugar. Patient concerned about hypoglycemia at home which is reasonable. Will defer to primary team. Consult nurse educator. Subjective Principal diagnosis: ESRD Interval history: Patient was seen. She has no new complaint. Her review of systems was otherwise stable. She is concerned about the fluctuations in her blood sugar. She is concerned about her hyperkalemia. She does not want to go home "too early". She was seen while on dialysis. Objective - Vital Signs Vital signs: Vital Signs Temp Pulse Resp BP Pulse Ox 08/17/16 10:45 132/65 08/17/16 10:15 143/72 08/17/16 09:45 146/79 08/17/16 09:15 147/68 08/17/16 09:00 97.9 F 20 148/74 08/17/16 08:20 97.8 F 65 16 160/68 95 08/17/16 04:47 97.4 F L 57 16 152/76 97 08/17/16 00:30 98.3 F 69 16 151/68 94 08/16/16 22:22 94 08/16/16 19:44 98.4 F 70 16 164/66 94 08/16/16 15:16 71 16 149/79 94 08/16/16 15:07 70 16 157/79 93 08/16/16 14:59 70 20 148/78 94 08/16/16 14:53 75 12 156/85 93 08/16/16 14:43 75 18 159/80 08/16/16 14:15 98.1 F 18 152/66 08/16/16 14:00 147/65 04/14/17 13:45 141/59 08/16/16 13:30 147/65 08/16/16 13:15 142/64 08/16/16 13:00 142/70 08/16/16 12:45 146/63 08/16/16 12:30 150/67 08/16/16 12:15 98.3 F 18 144/64 08/16/16 11:46 97.9 F 63 16 137/59 93 Intake and Output 08/16/16 08/17/16 08/17/16 23:59 07:59 15:59 Intake Total 0 / 0 0 / 0 600 / 600 Output Total 0 / 0 0 / 0 300 / 300 Balance 0 / 0 0 / 0 300 / 300 Intake: Oral 0 / 0 0 / 0 0 / 0 Intake, Rinseback and 600 / 600 Flushes Output: Urine 0 / 0 0 / 0 Urine/Stool Mix 300 / 300 Other: Stool Consistency loose Stool Color Brown # Bowel Movement Diapers 1 Weight 99 kg 99 kg Blood Glucose* 399 349 Hemodialysis Net Fluid 1377 Removed (mL) Patient Weight 08/17/16 23:59 Weight 99 kg - General Appearance General appearance: Present: well-developed, well-nourished EENT: Present: ATNC Neck: Present: supple Cardiology: Present: regular rate Neurologic: Present: alert and oriented x3 Psychiatric: Present: mood/affect appropriate - Lab 08/17/16 04:16 08/17/16 07:59 Most recent lab results Calcium 9.4 mg/dL (8.6-10.8) 08/17/16 07:59 Phosphorus 4.1 mg/dL (2.3-4.7) 08/11/16 07:48 Magnesium 1.8 mg/dL (1.6-2.6) 08/11/16 07:48 Consult Discharge Plan - Plan Referrals: Hugo Mercedes MD [Primary Care Provider] - 08/23/16 2:00 pm Prescriptions: Supplies [SUPPLIES] 1 each .ROUTE QID #125 each
[2016-08-17] MEDS ORDERED: Insulin DETEMIR 100 UNIT/ML X5UNITS SQ SCH (11:41)
--- NOTE | 2016-08-17 11:42 | Internal Med Progress Note ---
Date of Encounter: 08/17/16 Time of Encounter: 11:30 - Assessment and plan (1) HCAP (healthcare-associated pneumonia) Current Visit: Yes Status: Acute Assessment and plan: Continue levofloxacin renally dosed to complete treatment course for a total of 14 days. Moderate risk for complications at this time (2) Uncontrolled type 2 diabetes mellitus with insulin therapy Current Visit: Yes Status: Acute Assessment and plan: Blood sugars remain elevated but improving. Will increase long-acting insulin 28 units twice a day. Monitor blood sugars closely given patient's brittle diabetes and episodes of hypoglycemia even low doses of insulin. 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 Undergoing dialysis currently. Potassium was elevated at 6.5 this morning. (6) Hyperkalemia Current Visit: Yes Status: Acute Assessment and plan: Potassium 6.5 this morning. Being managed with hemodialysis (7) Musculoskeletal chest pain Current Visit: Yes Status: Acute (8) Pulmonary edema Current Visit: Yes Status: Acute Assessment and plan: Clinically improving. Qualifiers: Chronicity: acute Qualified Code(s): J81.0 - Acute pulmonary edema (9) Stage II decubitus ulcer Current Visit: Yes Status: Acute Assessment and plan: Continue supportive care. Home health and hospital bed at the time of discharge. Qualifiers: Pressure ulcer location: buttock Laterality: left Qualified Code(s): L89.322 - Pressure ulcer of left buttock, stage 2 - Subjective Interval history: Patient is awake and alert. Currently receiving hemodialysis. Doing well this morning. Denies any new complaints at this time. - Constitutional Vitals: Temp Pulse Resp BP Pulse Ox 97.9 F 65 20 132/65 95 08/17/16 09:00 08/17/16 08:20 08/17/16 09:00 08/17/16 10:45 08/17/16 08:20 General appearance: Present: cooperative, A&O X 3, pleasant, no acute distress, answers questions appropriately - Neck Neck exam general surgery: Present: supple, trachea midline. Absent: lymphadenopathy - Cardiovascular Cardiovascular exam: Present: RRR, +S1, +S2. Absent: diastolic murmur, gallop, rubs, systolic murmur - GI/Abdominal GI/Abdominal exam: Present: normal bowel sounds, soft, no peritoneal signs. Absent: distended, tenderness - Extremities Exam Extremities exam: Present: warm, radial pulses palpable and symetrical. Absent : calf tenderness, cyanotic, pedal edema - Skin Skin exam: Present: dry, intact Internal Medicine: Result - Labs CBC & Chem 7: 08/17/16 04:16 08/17/16 07:59 Labs: Short CBC 08/17/16 Range/Units 04:16 WBC 7.6 (4.3-11.1) K/mcL Hgb 10.3 L (11.5-15.4) g/dL Hct 32.3 L (35.3-44.9) % Plt Count 287 (140-400) K/mcL Neutrophils # 5.7 (1.6-8.9) K/mcL BMP 08/17/16 08/17/16 04:16 07:59 Sodium 135 L 137 Potassium 6.5 H* 6.2 H Chloride 98 97 L Carbon Dioxide 23 25 BUN 76 H 77 H Creatinine 8.52 H 8.70 H Glucose 305 H 399 H Calcium 9.3 9.4 - ABG Interpretation ABG results: PT/INR, D-dimer PT 10.8 Seconds (9.4-12.1) 08/14/16 09:45 - Impressions Impressions AV Shunt Angiogram 08/16/16 00:00 IMPRESSION: Left upper extremity AV fistulograms followed by balloon venoplasty of inflow and outflow cephalic venous stenoses. No immediate complications. Postprocedure, the fistula is patent and has good antegrade flow. D/ / Karthik Justin MD / Karthik Justin MD Interpreting Provider: Karthik Justin MD Guidance Ultrasound 08/16/16 00:00 IMPRESSION: Left upper extremity AV fistulograms followed by balloon venoplasty of inflow and outflow cephalic venous stenoses. No immediate complications. Postprocedure, the fistula is patent and has good antegrade flow. D/ / Karthik Justin MD / Karthik Justin MD Interpreting Provider: Karthik Justin MD ET SLUG CASTING MACHINE OPERATOR, Venous 08/16/16 00:00 IMPRESSION: Left upper extremity AV fistulograms followed by balloon venoplasty of inflow and outflow cephalic venous stenoses. No immediate complications. Postprocedure, the fistula is patent and has good antegrade flow. D/ / Karthik Justin MD / Karthik Justin MD Interpreting Provider: Karthik Justin MD ET SLUG CASTING MACHINE OPERATOR, Venous 08/16/16 00:00 IMPRESSION: Left upper extremity AV fistulograms followed by balloon venoplasty of inflow and outflow cephalic venous stenoses. No immediate complications. Postprocedure, the fistula is patent and has good antegrade flow. D/ / Karthik Justin MD / Karthik Justin MD Interpreting Provider: Karthik Justin MD Consult Discharge Plan - Plan Referrals: Hugo Mercedes MD [Primary Care Provider] - 08/23/16 2:00 pm Prescriptions: Supplies [SUPPLIES] 1 each .ROUTE QID #125 each - Attending Attestation This document has been at least partially created by [employer] recognition technology by Dr. Ramirez. Errors in grammar, wording or other phrases may exist. If errors are found after the documentation is signed, they will be addressed individually in the addendum section of this document when appropriate.
[2016-08-17] MEDS ORDERED: 0.9 % Sodium Chloride 2,000 ML ONE (13:23)
[2016-08-17] MEDS: Aspirin 81 MG TAB.CHEW PO SCH (13:42)
[2016-08-17] MEDS: Nitroglycerin 0.1 MG PATCH.TD24 TP SCH (13:42)
[2016-08-17] MEDS: Gabapentin 100 MG CAPSULE PO SCH (13:42)
[2016-08-17] MEDS: Isosorbide MONOnitrate (24 HR) 60 MG TAB.ER.24H PO SCH (13:44)
[2016-08-17] MEDS: amLODIPine 5 MG TABLET PO SCH (13:44)
[2016-08-17] MEDS: levoFLOXacin 500 MG TABLET PO SCH (16:09)
[2016-08-17] MEDS: *HR* OxyCODONE Immed Rel 15 MG TABLET PO PRN (16:10)
[2016-08-18] MEDS: hydrALAZINE 25 MG TABLET PO SCH ×3 (03:32→18:02)
[2016-08-18] MEDS: *HR* Morphine 2 MG/ML SYRINGE IVP PRN ×3 (03:35→21:07)
[2016-08-18 03:53] LABS: Calcium 8.4 mg/dL (8.6-10.8)
[2016-08-18 03:54] LABS: Potassium 4.7 mEq/L (3.5-4.5)
[2016-08-18] MEDS: *HR* Heparin 5,000 UNIT/ML VIAL SQ SCH ×2 (06:52→17:59)
[2016-08-18] MEDS: Insulin LISPRO 300 UNITS/3 ML VIAL SQ SCH ×2 (07:52→07:54)
[2016-08-18] MEDS: Gabapentin 100 MG CAPSULE PO SCH (08:20)
[2016-08-18] MEDS: amLODIPine 5 MG TABLET PO SCH (08:20)
[2016-08-18] MEDS: Aspirin 81 MG TAB.CHEW PO SCH (08:21)
[2016-08-18] MEDS: Isosorbide MONOnitrate (24 HR) 60 MG TAB.ER.24H PO SCH (08:21)
[2016-08-18] MEDS: Nitroglycerin 0.1 MG PATCH.TD24 TP SCH (08:21)
[2016-08-18] MEDS: Insulin DETEMIR 100 UNIT/ML X5UNITS SQ SCH ×2 (08:26→21:06)
[2016-08-18] MEDS: *HR* OxyCODONE Immed Rel 15 MG TABLET PO PRN (12:30)
--- NOTE | 2016-08-18 12:39 | Internal Med Progress Note ---
Date of Encounter: 08/18/16 Time of Encounter: 10:45 - Assessment and plan (1) Uncontrolled type 2 diabetes mellitus with insulin therapy Current Visit: Yes Status: Acute Assessment and plan: Blood sugars remain elevated but improving. We will increase Levemir dosage to 10 units twice a day. Stop short-acting insulin. (2) HCAP (healthcare-associated pneumonia) Current Visit: Yes Status: Acute Assessment and plan: On levofloxacin to complete treatment course. (3) Bilateral pleural effusion Current Visit: Yes Status: Chronic (4) Diabetes mellitus, type 2 Current Visit: Yes Status: Chronic Qualifiers: Diabetes mellitus complication status: with kidney complications Diabetes mellitus complication detail: with chronic kidney disease Diabetes mellitus custodial insulin use: with intermediate project manager use Chronic kidney disease stage: on chronic dialysis Qualified Code(s): E11.22 - Type 2 diabetes mellitus with diabetic chronic kidney disease; N18.6 - End stage renal disease; Z79.4 - residential (current) use of insulin; Z99.2 - Dependence on renal dialysis (5) End-stage renal disease on hemodialysis Current Visit: Yes Status: Chronic Assessment and plan: Patient dialyzed yesterday. Nephrology following. She will be dialyzed according to nephrology recommendations. (6) Hyperkalemia Current Visit: Yes Status: Acute Assessment and plan: Improved after hemodialysis. Potassium 4.7 today. (7) Musculoskeletal chest pain Current Visit: Yes Status: Acute Assessment and plan: Treating with lidocaine patch. (8) Pulmonary edema Current Visit: Yes Status: Acute Assessment and plan: Improving. Volume management with hemodialysis. Qualifiers: Chronicity: acute Qualified Code(s): J81.0 - Acute pulmonary edema (9) Stage II decubitus ulcer Current Visit: Yes Status: Acute Assessment and plan: Supportive care. Pressure ulcer prophylaxis. Local wound care. Qualifiers: Pressure ulcer location: buttock Laterality: left Qualified Code(s): L89.322 - Pressure ulcer of left buttock, stage 2 - Subjective Interval history: Patient is resting at this time. Denies any new complaints. Chest tenderness intermittently present but tolerable. Tolerating regular diet. No shortness of breath. No fever or chills or night sweats or night. - Constitutional Vitals: Temp Pulse Resp BP Pulse Ox 98.4 F 60 15 117/62 96 08/18/16 10:34 08/18/16 10:34 08/18/16 10:34 08/18/16 10:34 08/18/16 10:34 General appearance: Present: cooperative, A&O X 3, pleasant, no acute distress, answers questions appropriately - Cardiovascular Cardiovascular exam: Present: RRR, +S1, +S2. Absent: diastolic murmur, gallop, rubs, systolic murmur - Extremities Exam Extremities exam: Present: warm, radial pulses palpable and symetrical. Absent : calf tenderness, cyanotic, pedal edema - Neurological Exam Neurological exam: Present: alert, CN II-XII intact, oriented X3, no focal deficits. Absent: facial droop, speech deficit - Skin Skin exam: Present: dry, intact Internal Medicine: Result - Labs CBC & Chem 7: 08/17/16 04:16 08/18/16 03:04 Labs: BMP 08/18/16 03:04 Sodium 139 Potassium 4.7 H D Chloride 99 Carbon Dioxide 26 BUN 52 H D Creatinine 6.24 H Glucose 373 H Calcium 8.4 L - ABG Interpretation ABG results: PT/INR, D-dimer PT 10.8 Seconds (9.4-12.1) 08/14/16 09:45 Consult Discharge Plan - Plan Referrals: Hugo Mercedes MD [Primary Care Provider] - 08/23/16 2:00 pm Prescriptions: Supplies [SUPPLIES] 1 each .ROUTE QID #125 each - Attending Attestation This document has been at least partially created by [employer] recognition technology by Dr. Ramirez. Errors in grammar, wording or other phrases may exist. If errors are found after the documentation is signed, they will be addressed individually in the addendum section of this document when appropriate.
--- NOTE | 2016-08-18 13:52 | Nephrology Progress Note ---
Date of Encounter: 08/18/16 Time of Encounter: 13:50 - Assessment and Plan (1) ESRD (end stage renal disease) on dialysis Current Visit: Yes Status: Chronic Continue HD MWF. Renal dose medications Renal diet. Improved clearance after her fistulogram. (2) Anemia Current Visit: No Status: Chronic hemoglobin stable. If she stays in the hospital for an extended period of time she will need EPO. Qualifiers: Anemia type: unspecified type Qualified Code(s): D64.9 - Anemia, unspecified (3) Uncontrolled type 2 diabetes mellitus with insulin therapy Current Visit: Yes Status: Acute Wide fluctuations in her blood sugar. Patient concerned about hypoglycemia at home which is reasonable. Will defer to primary team. Consulted booster assembler. Subjective Principal diagnosis: ESRD Interval history: Patient was seen. She has no new complaint. Her review of systems was otherwise stable. Objective - Vital Signs Vital signs: Vital Signs Temp Pulse Resp BP Pulse Ox 08/18/16 10:34 98.4 F 60 15 117/62 96 08/17/16 23:59 97.9 F 65 14 119/55 98 08/17/16 19:27 98.2 F 78 14 120/53 97 Intake and Output 08/17/16 08/18/16 08/18/16 23:59 07:59 15:59 Intake Total 0 / 0 360 / 360 Output Total 25 / 25 Balance -25 / -25 360 / 360 Intake: Oral 0 / 0 360 / 360 Output: Urine 25 / 25 Other: Meal Breakfast Percent of Meal Consumed 50% Stool Size Small Small Stool Consistency loose soft Stool Color Brown Brown Yellow # Urine Diapers 1 # Bowel Movement Diapers 1 Weight 99.2 kg Blood Glucose* 173 Patient Weight 08/18/16 23:59 Weight 99.2 kg - General Appearance General appearance: Present: well-developed, well-nourished EENT: Present: ATNC Neck: Present: supple Additional Comments: respirations are unlabored. Cardiology: Present: regular rate Neurologic: Present: alert and oriented x3 Psychiatric: Present: mood/affect appropriate - Lab 08/17/16 04:16 08/18/16 03:04 Most recent lab results Calcium 8.4 mg/dL (8.6-10.8) L 08/18/16 03:04 Phosphorus 4.1 mg/dL (2.3-4.7) 08/11/16 07:48 Magnesium 1.8 mg/dL (1.6-2.6) 08/11/16 07:48 Consult Discharge Plan - Plan Referrals: Hugo Mercedes MD [Primary Care Provider] - 08/23/16 2:00 pm Prescriptions: Supplies [SUPPLIES] 1 each .ROUTE QID #125 each
[2016-08-18] MEDS: *HR* Dextrose 50 % in Water (Syg) 50 ML SYRINGE IVP PRN (17:58)
[2016-08-19] MEDS: hydrALAZINE 25 MG TABLET PO SCH ×2 (01:46→11:11)
[2016-08-19 05:18] LABS: Calcium 8.6 mg/dL (8.6-10.8); Potassium 4.7 mEq/L (3.5-4.5)
[2016-08-19] MEDS: *HR* Morphine 2 MG/ML SYRINGE IVP PRN ×2 (05:19→09:31)
[2016-08-19] MEDS: *HR* Heparin 5,000 UNIT/ML VIAL SQ SCH (05:19)
[2016-08-19] MEDS ORDERED: 0.9 % Sodium Chloride 250 ML IVC PRN (08:08)
[2016-08-19] MEDS ORDERED: 0.9 % Sodium Chloride 1,000 ML PRIME SCH (08:15)
[2016-08-19] MEDS: Aspirin 81 MG TAB.CHEW PO SCH (09:29)
[2016-08-19] MEDS: Insulin DETEMIR 100 UNIT/ML X5UNITS SQ SCH (09:30)
[2016-08-19] MEDS: Gabapentin 100 MG CAPSULE PO SCH (09:30)
[2016-08-19] MEDS: Nitroglycerin 0.1 MG PATCH.TD24 TP SCH (09:30)
--- NOTE | 2016-08-19 10:15 | Discharge Summary ---
Date of Encounter: 08/19/16 Time of Encounter: 09:35 - Discharge Diagnosis (1) Uncontrolled type 2 diabetes mellitus with insulin therapy Priority: Primary Status: Acute (2) HCAP (healthcare-associated pneumonia) Priority: Secondary Status: Acute (3) Bilateral pleural effusion Priority: Secondary Status: Chronic (4) Diabetes mellitus, type 2 Priority: Secondary Status: Chronic Qualifiers: Diabetes mellitus complication status: with kidney complications Diabetes mellitus complication detail: with chronic kidney disease Diabetes mellitus oysterman insulin use: with longterm use Chronic kidney disease stage: on chronic dialysis Qualified Code(s): E11.22 - Type 2 diabetes mellitus with diabetic chronic kidney disease; N18.6 - End stage renal disease; Z79.4 - ferry terminal supervisor (current) use of insulin; Z99.2 - Dependence on renal dialysis (5) End-stage renal disease on hemodialysis Priority: Secondary Status: Chronic (6) Hyperkalemia Priority: Secondary Status: Acute (7) Musculoskeletal chest pain Priority: Secondary Status: Acute (8) Pulmonary edema Priority: Secondary Status: Acute Qualifiers: Chronicity: acute Qualified Code(s): J81.0 - Acute pulmonary edema (9) Stage II decubitus ulcer Priority: Secondary Status: Acute Qualifiers: Pressure ulcer location: buttock Laterality: left Qualified Code(s): L89.322 - Pressure ulcer of left buttock, stage 2 - Discharge Medications Prescriptions: Insulin DETEMIR [Levemir Flextouch] 10 unit SQ BID #1 insuln.pen Levofloxacin [Levaquin] 500 mg PO Q48H #4 tablet Supplies [SUPPLIES] 1 each .ROUTE QID #125 each Home Medications: Aspirin 81 mg PO DAILY 02/08/16 [History] Atorvastatin [Lipitor] 40 mg PO HS 02/08/16 [History] Duloxetine HCl [Cymbalta] 30 mg PO DAILY 02/08/16 [History] Ergocalciferol (VITAMIN D2) [Vitamin D2 (50,000 UNIT)] 50,000 unit PO QWEEK 10/18 [History] Ezetimibe [Zetia] 10 mg PO DAILY 02/08/16 [History] Febuxostat [Uloric] 80 mg PO DAILY 02/08/16 [History] Gabapentin [Neurontin] 300 mg PO TID 02/08/16 [History] Hydralazine HCl 50 mg PO Q8H 02/08/16 [History] Isosorbide MONOnitrate (24 HR) [Imdur] 120 mg PO DAILY 02/08/16 [History] LORazepam [Ativan] 0.5 mg PO BID PRN 02/08/16 [History] Levothyroxine Sodium [Synthroid] 200 mcg PO DAILY 02/08/16 [History] Polyethylene Glycol 3350 [MiraLAX] 17 gm PO DAILY PRN 02/08/16 [History] Renal Vitamin [Renal Caps Softgel] 1 mg PO DAILY 02/08/16 [History] Amlodipine [Norvasc] 10 mg PO DAILY 02/14/16 [History] Docusate [Colace] 100 mg PO BID PRN 30 Days 02/19/16 [Rx] Allopurinol [Zyloprim 300 MG] 300 mg PO QMWF 08/11/16 [History] Nitroglycerin 0.1 mg TP DAILY 08/11/16 [History] Ondansetron ODT [Zofran ODT] 4 mg SL Q6HR PRN 08/11/16 [History] OxyCODONE Immed Rel [Roxicodone 15 MG] 5 mg PO Q8HR PRN 08/11/16 [History] Tramadol HCl [Ultram] 50 mg PO Q6HR PRN 08/11/16 [History] Meloxicam [Mobic] 15 mg PO DAILY 08/12/16 [History] Metoprolol [Lopressor] 25 mg PO BID 08/12/16 [History] Supplies [SUPPLIES] 1 each .ROUTE QID #125 each 08/14/16 [Rx] Insulin DETEMIR [Levemir Flextouch] 10 unit SQ BID #1 insuln.pen 08/19/16 [Rx] Levofloxacin [Levaquin] 500 mg PO Q48H #4 tablet 08/19/16 [Rx] Lidocaine Patch [Lidoderm 5% patch] 1 each TP DAILY #10 08/19/16 [Rx] Allergies/Adverse Reactions: Allergies IVP DYE Allergy (Uncoded 01/01/16 09:03) See Comments PATIENT IS ON DIALYSIS "HURTS KIDNEYS" Date of admission: 08/11/16 06:18 Primary care physician: Hugo Mercedes MD Consults: 08/11/16 06:21 Consult to Nephrology [CONS] Routine Consulting Provider: Kidney Isabela/ONEIL/VLADISLAV/JANNY Reason for Consult: ESRD Call Completed: No 08/11/16 09:30 Consult to Dialysis [CONS] ONCE 08/12/16 09:45 Consult to Dialysis [CONS] ONCE 08/13/16 08:04 Consult to Physical Therapy [CONS] Routine Comment: Evaluate, develop and implement POC OT [Consult to Occupational Therapy] [CONS] Routine Comment: Evaluate, develop and implement POC 08/13/16 11:27 Consult to Physical Therapy [CONS] Routine Comment: Evaluate, develop and implement POC Consult to Distribution Designer [CONS] Routine Reason for SW Consult: Patient requests hospital bed, bedside commode, etc 08/14/16 10:15 Consult to Dialysis [CONS] ONCE 08/15/16 10:53 Consult to Interventional Radiology [CONS] Routine Consulting Provider: Radiology Interventional Cols Reason for Consult: Patient with right upper arm fistula with a soft thrill and loud bruit. Decreased clearance on dialysis. Needs fistulogram. Call Completed: Yes 08/16/16 07:35 Consult to Bed Setter [CONS] Routine Comment: 08/16/16 08:15 Consult to Dialysis [CONS] ONCE 08/16/16 10:52 Consult to Bed Setter [CONS] Routine Comment: Patient with labile blood sugars. 08/17/16 08:45 Consult to Dialysis [CONS] ONCE 08/19/16 08:15 Consult to Dialysis [CONS] ONCE Discharging clinician: Finesse Ramirez Anticipated date of discharge: 08/19/16 - Patient Status Disposition: Home Health Service Condition: Fair Functional capacity at discharge: wheelchair bound Overall status at discharge: patient is progressing back to baseline - Discharge Instructions Instructions: Diabetes Mellitus Type 2 in Adults (DC), Pneumonia (DC) Follow Up With: Hugo Mercedes MD [Primary Care Provider] - 08/23/16 2:00 pm - Diet and Activity Activity: as per physical therapy Diet: diabetic diet, low fat, low cholesterol, low salt diet, other (Renal) Hospital course: Ms. Moffett is a 70 year old female patient with history of end-stage renal disease, type 2 diabetes mellitus, atrial fibrillation was admitted here with episodes of hypoglycemia. She was also having chest pain from pulled muscle in her chest wall on presentation. She was also found to have possible pneumonia based on chest x-ray findings. She was admitted here and treated for these conditions. Her blood sugars have been very brittle ranging from 400 to less than 100 within the same day with minimal use of insulin. At this time, we will discontinue her insulin pump and place her only on Levemir 10 units twice daily. For her health care associated pneumonia, she was treated with broad- spectrum antibiotics. Her symptoms then. She has now been de-escalating treatment with levofloxacin. She did have trouble with hyperkalemia and poor response to hemodialysis and then underwent AV fistulogram. Since then her potassium levels have improved and her BUN and creatinine are also improving. Presently, she is stable to be discharged home with home health. She has a decubitus ulcer. Wound culture from her decubitus ulcer was positive for vancomycin-resistant enterococcus. However she does not have any signs of infection of the wound and assessed this is believed to be a contaminant and was not treated. Patient would benefit with hospital bed to enable frequent turning and positioning. This has already been prescribed for her and vp digital marketing social media and crm is arranging for the patient to receive this before she leaves goes home. - Time Spent with Patient Total time spent providing and/or coordinating discharge services: Greater than 30 minutes (45 min) - Constitutional Vitals: Temp Pulse Resp BP Pulse Ox 97.9 F 59 18 141/62 96 08/19/16 07:35 08/19/16 07:35 08/19/16 07:35 08/19/16 07:35 08/19/16 07:35 General appearance: Present: cooperative, A&O X 3, pleasant, no acute distress, answers questions appropriately - Respiratory Respiratory exam: Present: CTAB. Absent: accessory muscle use, rales, rhonchi, wheezes - Cardiovascular Cardiovascular exam: Present: RRR, +S1, +S2. Absent: diastolic murmur, gallop, rubs, systolic murmur - GI/Abdominal GI/Abdominal exam: Present: normal bowel sounds, soft, no peritoneal signs. Absent: distended, tenderness - Extremities Exam Extremities exam: Present: warm, radial pulses palpable and symetrical. Absent : calf tenderness, cyanotic, pedal edema - Attending Attestation This document has been at least partially created by [employer] recognition technology by Dr. Ramirez. Errors in grammar, wording or other phrases may exist. If errors are found after the documentation is signed, they will be addressed individually in the addendum section of this document when appropriate.
--- NOTE | 2016-08-19 10:24 | Physician Discharge Referral ---
Home Health/Hosp Referral Info Transfer to: Home Health Provider in Charge Post Discharge: PCP - Diagnosis (1) Uncontrolled type 2 diabetes mellitus with insulin therapy Priority: Primary Status: Acute (2) HCAP (healthcare-associated pneumonia) Priority: Secondary Status: Acute (3) Bilateral pleural effusion Priority: Secondary Status: Chronic (4) Diabetes mellitus, type 2 Priority: Secondary Status: Chronic (5) End-stage renal disease on hemodialysis Priority: Secondary Status: Chronic (6) Hyperkalemia Priority: Secondary Status: Acute (7) Musculoskeletal chest pain Priority: Secondary Status: Acute (8) Pulmonary edema Priority: Secondary Status: Acute (9) Stage II decubitus ulcer Priority: Secondary Status: Acute - Respiratory Orders Smoking Cessation: Smoking cessation has been advised. For more information, call the [employer] Quit Line at 1-409-RBMX-NOW. - Diet/Nutrition Diet/Nutrition Orders: Renal, Cardiac, No Concentrated Sweets (and diabetic) - Activity Activity: List: Per pT evaluation - Services Needed Following services are medically necessary services: Nursing, Physical Therapy, Occupational Therapy - Transfer Medications Prescriptions: Insulin DETEMIR [Levemir Flextouch] 10 unit SQ BID #1 insuln.pen Levofloxacin [Levaquin] 500 mg PO Q48H #4 tablet Supplies [SUPPLIES] 1 each .ROUTE QID #125 each Home Medications: Aspirin 81 mg PO DAILY 02/08/16 [History] Atorvastatin [Lipitor] 40 mg PO HS 02/08/16 [History] Duloxetine HCl [Cymbalta] 30 mg PO DAILY 02/08/16 [History] Ergocalciferol (VITAMIN D2) [Vitamin D2 (50,000 UNIT)] 50,000 unit PO QWEEK 10/18 [History] Ezetimibe [Zetia] 10 mg PO DAILY 02/08/16 [History] Febuxostat [Uloric] 80 mg PO DAILY 02/08/16 [History] Gabapentin [Neurontin] 300 mg PO TID 02/08/16 [History] Hydralazine HCl 50 mg PO Q8H 02/08/16 [History] Isosorbide MONOnitrate (24 HR) [Imdur] 120 mg PO DAILY 02/08/16 [History] LORazepam [Ativan] 0.5 mg PO BID PRN 02/08/16 [History] Levothyroxine Sodium [Synthroid] 200 mcg PO DAILY 02/08/16 [History] Polyethylene Glycol 3350 [MiraLAX] 17 gm PO DAILY PRN 02/08/16 [History] Renal Vitamin [Renal Caps Softgel] 1 mg PO DAILY 02/08/16 [History] Amlodipine [Norvasc] 10 mg PO DAILY 02/14/16 [History] Docusate [Colace] 100 mg PO BID PRN 30 Days 02/19/16 [Rx] Allopurinol [Zyloprim 300 MG] 300 mg PO QMWF 08/11/16 [History] Nitroglycerin 0.1 mg TP DAILY 08/11/16 [History] Ondansetron ODT [Zofran ODT] 4 mg SL Q6HR PRN 08/11/16 [History] OxyCODONE Immed Rel [Roxicodone 15 MG] 5 mg PO Q8HR PRN 08/11/16 [History] Tramadol HCl [Ultram] 50 mg PO Q6HR PRN 08/11/16 [History] Meloxicam [Mobic] 15 mg PO DAILY 08/12/16 [History] Metoprolol [Lopressor] 25 mg PO BID 08/12/16 [History] Supplies [SUPPLIES] 1 each .ROUTE QID #125 each 08/14/16 [Rx] Insulin DETEMIR [Levemir Flextouch] 10 unit SQ BID #1 insuln.pen 08/19/16 [Rx] Levofloxacin [Levaquin] 500 mg PO Q48H #4 tablet 08/19/16 [Rx] Lidocaine Patch [Lidoderm 5% patch] 1 each TP DAILY #10 08/19/16 [Rx] Allergies/Adverse Reactions: Allergies IVP DYE Allergy (Uncoded 01/01/16 09:03) See Comments PATIENT IS ON DIALYSIS "HURTS KIDNEYS" Certification: Further, I certify that my clinical findings support that this patient is homebound (i.e. absences from home require considerable and taxing effort and are for medical reasons or [employer] or infrequently or short duration when for other reasons) because: Homebound Reason: Patient requires assistance of a person or device to safely leave home, Severity of cardiac or pulmonary status limits activity tolerance Attestation: My signature below is to certify that this patient is under my care and that I, or nurse practitioner, or a physician's energy assistant working with me, has a face-to -face encounter with this patient.
[2016-08-19] MEDS: Isosorbide MONOnitrate (24 HR) 60 MG TAB.ER.24H PO SCH (11:09)
[2016-08-19] MEDS: amLODIPine 5 MG TABLET PO SCH (11:11)
[2016-08-19 13:45] VITALS: BP 154/77
--- NOTE | 2016-08-19 17:43 | Nephrology Progress Note ---
<Girish Yoon - Last Filed: 08/19/16 17:39> Date of Encounter: 08/19/16 Time of Encounter: 10:30 - Assessment and Plan (1) ESRD (end stage renal disease) on dialysis Status: Chronic Continue HD MWF. REnal dose medications. Renal diet. Noted improved clearance after fistulogram. K+ improved at 4.7. (2) Anemia Status: Chronic Chronic in the setting of ESRD. Hgb stable. Qualifiers: Anemia type: unspecified type Qualified Code(s): D64.9 - Anemia, unspecified (3) Uncontrolled type 2 diabetes mellitus with insulin therapy Status: Acute Admitted with concerns of hypoglycemia. Noted to have labile blood glucose readings. Insulin pump discontinued and long acting insulin BID started. Management per primary medicine. Subjective Principal diagnosis: ESRD Interval history: Patient seen and examined during dialysis. No acute distress. No events noted overnight. Objective - Vital Signs Vital signs: Vital Signs Temp Pulse Resp BP Pulse Ox 08/19/16 13:20 97.9 F 18 154/77 08/19/16 13:15 148/73 08/19/16 13:00 154/72 08/19/16 12:45 131/66 08/19/16 12:30 135/68 08/19/16 12:15 149/69 08/19/16 12:00 149/69 08/19/16 11:45 155/71 08/19/16 11:30 147/69 08/19/16 11:15 151/66 08/19/16 11:00 160/74 08/19/16 10:45 147/69 08/19/16 10:30 153/64 08/19/16 10:15 160/76 08/19/16 10:00 163/71 08/19/16 09:45 97.9 F 18 133/64 08/19/16 07:35 97.9 F 59 18 141/62 96 08/19/16 00:03 98.4 F 61 14 127/53 95 08/18/16 19:54 98.2 F 62 14 128/60 95 08/18/16 18:00 98.1 F 66 16 138/67 95 Intake and Output 08/19/16 08/19/16 08/19/16 07:59 15:59 23:59 Intake Total 300 / 300 600 / 600 Output Total 0 / 0 3600 / 3600 Balance 300 / 300 -3000 / -3000 Intake: Oral 300 / 300 0 / 0 Intake, Rinseback and 600 / 600 Flushes Output: Urine 0 / 0 0 / 0 Total Dialysis Output 3600 / 3600 Other: Blood Glucose* 126 114 Hemodialysis Net Fluid 3000 Removed (mL) - General Appearance General appearance: Present: well-developed, well-nourished, appears started age EENT: Present: ATNC, mucous membranes moist, hearing intact, vision intact Cardiology: Present: regular rate Neurologic: Present: no focal deficit, alert and oriented x3 Psychiatric: Present: mood/affect appropriate, cooperative - Lab 08/17/16 04:16 08/19/16 04:42 Most recent lab results Calcium 8.6 mg/dL (8.6-10.8) 08/19/16 04:42 Phosphorus 4.1 mg/dL (2.3-4.7) 08/11/16 07:48 Magnesium 1.8 mg/dL (1.6-2.6) 08/11/16 07:48 Consult Discharge Plan - Plan Instructions: Diabetes Mellitus Type 2 in Adults (DC), Pneumonia (DC) Referrals: Hugo Mercedes MD [Primary Care Provider] - 08/23/16 2:00 pm Prescriptions: Insulin DETEMIR [Levemir Flextouch] 10 unit SQ BID #1 insuln.pen Levofloxacin [Levaquin] 500 mg PO Q48H #4 tablet Pen Needle, Diabetic [Insulin Pen Needle] 1 each MC BID #60 dis.needle Supplies [SUPPLIES] 1 each .ROUTE QID #125 each <Mirela Cochran - Last Filed: 08/19/16 19:49> Date of Encounter: 08/19/16 Objective - Vital Signs Vital signs: Vital Signs Temp Pulse Resp BP Pulse Ox 08/19/16 13:20 97.9 F 18 154/77 08/19/16 13:15 148/73 08/19/16 13:00 154/72 08/19/16 12:45 131/66 08/19/16 12:30 135/68 08/19/16 12:15 149/69 08/19/16 12:00 149/69 08/19/16 11:45 155/71 04/17/17 11:30 147/69 08/19/16 11:15 151/66 08/19/16 11:00 160/74 08/19/16 10:45 147/69 08/19/16 10:30 153/64 08/19/16 10:15 160/76 08/19/16 10:00 163/71 08/19/16 09:45 97.9 F 18 133/64 08/19/16 07:35 97.9 F 59 18 141/62 96 08/19/16 00:03 98.4 F 61 14 127/53 95 08/18/16 19:54 98.2 F 62 14 128/60 95 Intake and Output 08/19/16 08/19/16 08/19/16 07:59 15:59 23:59 Intake Total 300 / 300 600 / 600 Output Total 0 / 0 3600 / 3600 Balance 300 / 300 -3000 / -3000 Intake: Oral 300 / 300 0 / 0 Intake, Rinseback and 600 / 600 Flushes Output: Urine 0 / 0 0 / 0 Total Dialysis Output 3600 / 3600 Other: Blood Glucose* 126 114 Hemodialysis Net Fluid 3000 Removed (mL) - Lab 08/17/16 04:16 08/19/16 04:42 Most recent lab results Calcium 8.6 mg/dL (8.6-10.8) 08/19/16 04:42 Phosphorus 4.1 mg/dL (2.3-4.7) 08/11/16 07:48 Magnesium 1.8 mg/dL (1.6-2.6) 08/11/16 07:48 - Attending Attestation I examined this patient and my medical decision-making was reviewed with the [employer] EXAMINER/PA/Advanced Practice Nurse/Resident Physician. I agree with the documented findings, disposition and treatment plan as described except to the extent set forth below. pt seen and examined on HD doing much better with better glucose control, eager to go home. PE: unmarkable Continue HD with UF as tolerated. Potassium improved at 4.7 after fistulogram with angioplasty.
== END 2016-08-19 15:30 | disposition home health service (06) | DRG 628 ==
LOC: EMEROO 21:05 → 2ANU 21:05 → 3ANU 08-11 00:45 → SUATTDRO 08-11 06:18
PROVIDERS: ADMIT Internal Medicine; ATTEND Internal Medicine

== ENCOUNTER 2017-01-06 06:17 | Inpatient (IN) ==
[2017-01-06] MEDS ORDERED: Naloxone 0.4 MG/ML INJ IVP ONE (06:21)
[2017-01-06] MEDS ORDERED: 0.9 % Sodium Chloride 500 ML IVC ONE (06:26)
--- NOTE | 2017-01-06 06:33 | Emergency Department Note ---
Disposition Clinical Impression: Acute exacerbation of chronic obstructive airways disease, End-stage renal disease on hemodialysis, Bradycardia with 41-50 beats per minute, UTI (urinary tract infection), Hyponatremia, Hypoxia, Acute metabolic encephalopathy, Hyperkalemia Disposition: Admitted As Inpatient Condition: Fair Time of Disposition: 06:39 SOB HPI - General Chief Complaint: ED Shortness of Breath/Dyspnea Stated Complaint: low o2 Time Seen by Provider: 01/06/17 06:20 Source: patient, EMS Mode of arrival: EMS Limitations: altered mental status Nursing Notes Reviewed: Yes Vital Signs Reviewed: Yes - History of Present Illness Patient presents to the ED with the complaint of hypoxia. Patient is a dialysis patient on Friday, Friday, Friday with Dr. Louise. She was at dialysis today and they noted her oxygen sats were in the 70s and she had a decreased level of consciousness. States that she is on 2 L of oxygen at home at all times for COPD, they increased her oxygen to 4 L and her sats came up to the 90s. States that they transport her weekly and she is usually not this confused. Patient denies any headache, changes in vision. Denies chest pain. Does complain of some increasing shortness of breath and cough over the last 2 weeks. No abdominal pain or vomiting. No new pain or swelling in her legs. No history of CHF according to her. She states she just feels tired - Related Data Home Medications Medication Instructions Recorded Confirmed Levothyroxine Sodium [Synthroid] 200 mcg PO DAILY 02/08/16 01/06/17 Polyethylene Glycol 3350 [MiraLAX] 17 gm PO DAILY PRN 02/08/16 01/06/17 amLODIPine [Norvasc] 10 mg PO DAILY 02/14/16 01/06/17 Aspirin [Lo-Dose Aspirin EC] 81 mg PO DAILY 05/26/16 01/06/17 Atorvastatin [Lipitor] 40 mg PO DAILY 05/26/16 01/06/17 Calcium Acetate [Phos-LO] 1,334 mg PO TIDWM 05/26/16 01/06/17 Duloxetine HCl [Cymbalta] 30 mg PO DAILY 05/26/16 01/06/17 Ergocalciferol (VITAMIN D2) 50,000 unit PO WE 05/26/16 01/06/17 [Vitamin D2] Ezetimibe [Zetia] 10 mg PO DAILY 05/26/16 01/06/17 Febuxostat [Uloric] 80 mg PO DAILY 05/26/16 01/06/17 Furosemide [Lasix] 40 mg PO DAILY 05/26/16 01/06/17 Gabapentin [Neurontin] 300 mg PO DAILY 05/26/16 01/06/17 Hydralazine HCl 50 mg PO Q8H 05/26/16 01/06/17 Insulin Glargine [Lantus] 5 - 20 unit SQ DAILY PRN 05/26/16 01/06/17 Isosorbide MONOnitrate (24 HR) 120 mg PO DAILY 05/26/16 01/06/17 [Imdur] LORazepam [Ativan] 0.5 - 1 mg PO BID PRN 05/26/16 01/06/17 Metoprolol XL (24 HR) Succ [Toprol 50 mg PO DAILY 05/26/16 01/06/17 XL] Renal Vitamin [Renal Caps Softgel] 1 mg PO DAILY 05/26/16 01/06/17 Allopurinol [Zyloprim 300 MG] 300 mg PO DAILY 05/27/16 01/06/17 Insulin LISPRO [HumaLOG] 0 units SQ DAILY PRN MDD 110 units 05/27/16 01/06/17 daily Meloxicam 15 mg PO DAILY 05/27/16 01/06/17 Nitroglycerin 0.1 mg TP DAILY 08/11/16 01/06/17 Ondansetron ODT [Zofran ODT] 4 mg SL Q6HR PRN 08/11/16 01/06/17 Tramadol HCl [Ultram] 50 mg PO Q6HR PRN 08/11/16 01/06/17 Cinacalcet [Sensipar] 30 mg PO DAILY 01/06/17 01/06/17 Oxycodone HCl 10 mg PO TID PRN 01/06/17 01/06/17 Previous Rx's Medication Instructions Recorded Docusate [Colace] 100 mg PO BID PRN 30 Days 02/19/16 Lidocaine Patch [Lidoderm 5% patch] 1 each TP DAILY #10 08/19/16 Allergies Allergy/AdvReac Type Severity Reaction Status Date / Time IVP DYE Allergy See Uncoded 01/01/16 09:03 Comments ivp dye Allergy See Uncoded 05/27/16 08:00 Comments All systems ED: reviewed and negative except as stated. Constitutional: Denies: fever Cardiovascular: Reports: dyspnea on exertion. Denies: chest pain Respiratory: Reports: cough, dyspnea Gastrointestinal: Denies: vomiting Musculoskeletal: Denies: neck pain Past Medical History - Past Medical History Attestation: Yes The following information was validated with the patient. Source: patient, old records reviewed Medical history: Reports: diabetes, renal disease, hyperlipidemia, hypertension , thyroid disease, coronary artery disease, dialysis Surgical history: Reports: orthopedic, other, other, hysterectomy, vascular surgery Psychiatric history: Reports: no psych history, anxiety, depression - Social History Smoking Status: Never smoker Smokeless Tobacco Status: No Alcohol use: Reports: none Drug use: Reports: none Physical Exam - General General appearance: alert, in no apparent distress, lethargic (Arouses easily) - Head Head exam: atraumatic, normocephalic, normal inspection - Eye Eye exam: Present: PERRL, EOMI, miosis - ENT ENT exam: mucous membranes dry - Respiratory Respiratory exam: Present: other (Course breath sounds throughout, no obvious rales, wheezes. No respiratory distress). Absent: normal lung sounds bilaterally - Cardiovascular Cardiovascular exam: Present: regular rate, normal rhythm, normal heart sounds - Abdominal Exam Abdominal exam: Present: soft, Non-Tender. Absent: tenderness, distention, guarding, rebound, rigidity - Extremities Exam Extremities exam: Present: normal inspection, full ROM, normal capillary refill. Absent: tenderness, pedal edema, calf tenderness - Neurological Exam Neurological exam: Present: alert, oriented X3 (Patient knows her name, year and what hospital she is in), CN II-XII intact - Skin Skin exam: Present: warm, dry, intact, normal color Course Course Narrative: 71-year-old female with hypoxia and altered mental status. Patient is hyperglycemic and could be in DKA. She is stable currently. Heart rate is in the 40s and oxygen sats are around 90% on 4 L. Infectious versus metabolic abnormalities are primary concern. We will check labs, chest x-ray, CT head. Patient will be admitted. Patient maintaining her airway Patient will be signed out to the oncoming daytime team. Vital Signs Temperature 98.6 F 01/06/17 06:19 Pulse Rate 49 01/06/17 06:19 Respiratory Rate 16 01/06/17 06:19 Blood Pressure 166/66 01/06/17 06:19 O2 Sat by Pulse Oximetry 92 01/06/17 06:19 Temperature 98.6 F 01/07/17 04:39 Pulse Rate 71 01/07/17 04:39 Respiratory Rate 17 01/07/17 04:53 Blood Pressure 149/65 01/07/17 04:39 O2 Sat by Pulse Oximetry 97 01/07/17 04:53 Oxygen Delivery Oxygen Delivery Room Air Shortness of Breath/Dyspnea - Lab Data Result diagrams: 01/07/17 04:00 01/07/17 04:00 Lab Results 01/06/17 01/06/17 01/06/17 Range/Units 06:25 06:30 06:30 WBC 10.9 (4.3-11.1) K/mcL RBC 3.66 L (3.82-4.97) M/mcL Hgb 11.8 (11.5-15.4) g/dL Hct 34.8 L (35.3-44.9) % MCV 95.1 (83.0-100.0) fL MCH 32.2 (28.0-33.3) pg MCHC 33.9 (31.6-35.5) g/dL RDW 14.2 (11.5-14.5) % Plt Count 272 (140-400) K/mcL MPV 11.3 (9.4-12.4) fL Immature Gran % 0.3 (0-4) % Seg Neutrophils % 62.5 % Lymphocytes % 27.6 % Monocytes % 7.9 % Eosinophils % 1.4 % Basophils % 0.3 % Neutrophils # 6.8 (1.6-8.9) K/mcL Lymphocytes # 3.0 (0.6-4.6) K/mcL Monocytes # 0.9 (0.0-1.3) K/mcL Eosinophils # 0.2 (0.0-0.6) K/mcL Basophils # 0.0 (0.0-0.2) K/mcL PT 9.9 (9.4-12.1) Seconds INR 0.9 APTT 28.6 (26.0-36.0) Seconds VBG pH (7.32-7.42) pH Units VBG pCO2 (41-51) mmHg VBG pO2 (25-40) mmHg VBG HCO3 (21-27) mEq/L Sodium (136-145) mEq/L Potassium (3.5-4.5) mEq/L Chloride (98-109) mEq/L Carbon Dioxide (19-29) mEq/L BUN (7-20) mg/dL Creatinine (0.57-1.11) mg/dL Est GFR ( Amer) (> 60) Est GFR (Non-Af Amer) (> 60) BUN/Creatinine Ratio (6-26) Glucose (70-99) mg/dL POC Glucose 564 H* (58-89) Calculated Osmolality (280-300) Lactic Acid (0.5-2.2) mmol/L Calcium (8.6-10.8) mg/dL Phosphorus (2.3-4.7) mg/dL Magnesium (1.6-2.6) mg/dL Total Bilirubin (0.2-1.2) mg/dL Direct Bilirubin (0.0-0.5) mg/dL Indirect Bilirubin (0.0-1.2) mg/dL AST (5-34) Units/L ALT (0-55) Units/L Alkaline Phosphatase (38-126) Units/L Ammonia (18-72) mcmol/L Creatine Kinase (29-168) Units/L Troponin I (0-0.03) ng/mL B-Natriuretic Peptide (0-100) pg/mL Serum Total Protein (6.0-8.3) g/dL Albumin (3.5-5.0) g/dL Globulin (2.4-3.5) g/dL Albumin/Globulin Ratio (1.1-2.2) Beta-Hydroxybutyric Acd (0.02-0.27) mmol/L TSH (0.350-4.840) mcIU/mL Free T4 (0.70-1.48) ng/dl Free T3 (1.71-3.71) pg/mL Ur Specimen Adequacy Urine Color (Yellow) Urine Clarity (Clear) Urine pH (5.0-8.0) pH Units Ur Specific [employer] (1.010-1.025) Urine Protein (Neg-Trace) mg/dL Urine Glucose (UA) (Normal) mg/dL Urine Ketones (Negative) mg/dL Urine Blood (Negative) Urine Nitrite (Negative) Urine Bilirubin (Negative) Urine Urobilinogen (Normal) mg/dL Ur Leukocyte Esterase (Negative) Urine Microscopic RBC (0-3) per hpf Urine Microscopic WBC (0-3) per hpf Ur Squamous Epith Cells (None-Few) per lpf Ur Transition Epith Cell (None-Few) per hpf Urine Bacteria (None-Few) per hpf Ur Culture Indicated? (NO) Urine Opiates Screen (Tdqsgs=740) ng/mL Ur Barbiturates Screen (Igpfml=993) ng/mL Ur Phencyclidine Scrn (Cutoff=25) ng/mL Ur Amphetamines Screen (Dwhgxm=6134) ng/mL U Benzodiazepines Scrn (Ygjqsn=403) ng/mL Urine Cocaine Screen (Cutoff= 300) ng/mL U Marijuana (THC) Screen (Cutoff = 50) ng/mL Ethyl Alcohol (0-10) mg/dL Hep Bs Antigen (Nonreactive) Hep Bs Antibody mIU/mL 01/06/17 01/06/17 01/06/17 Range/Units 06:30 06:30 06:30 WBC (4.3-11.1) K/mcL RBC (3.82-4.97) M/mcL Hgb (11.5-15.4) g/dL Hct (35.3-44.9) % MCV (83.0-100.0) fL MCH (28.0-33.3) pg MCHC (31.6-35.5) g/dL RDW (11.5-14.5) % Plt Count (140-400) K/mcL MPV (9.4-12.4) fL Immature Gran % (0-4) % Seg Neutrophils % % Lymphocytes % % Monocytes % % Eosinophils % % Basophils % % Neutrophils # (1.6-8.9) K/mcL Lymphocytes # (0.6-4.6) K/mcL Monocytes # (0.0-1.3) K/mcL Eosinophils # (0.0-0.6) K/mcL Basophils # (0.0-0.2) K/mcL PT (9.4-12.1) Seconds INR APTT (26.0-36.0) Seconds VBG pH (7.32-7.42) pH Units VBG pCO2 (41-51) mmHg VBG pO2 (25-40) mmHg VBG HCO3 (21-27) mEq/L Sodium 124 L (136-145) mEq/L Potassium 6.1 H (3.5-4.5) mEq/L Chloride 86 L (98-109) mEq/L Carbon Dioxide 19 (19-29) mEq/L BUN 94 H (7-20) mg/dL Creatinine 7.95 H (0.57-1.11) mg/dL Est GFR ( Amer) 6 L (> 60) Est GFR (Non-Af Amer) 5 L (> 60) BUN/Creatinine Ratio 12 (6-26) Glucose 625 H* (70-99) mg/dL POC Glucose (58-89) Calculated Osmolality 316 H (280-300) Lactic Acid (0.5-2.2) mmol/L Calcium 9.1 (8.6-10.8) mg/dL Phosphorus 6.2 H (2.3-4.7) mg/dL Magnesium 2.3 (1.6-2.6) mg/dL Total Bilirubin 0.6 (0.2-1.2) mg/dL Direct Bilirubin 0.2 (0.0-0.5) mg/dL Indirect Bilirubin 0.4 (0.0-1.2) mg/dL AST 23 (5-34) Units/L ALT 19 (0-55) Units/L Alkaline Phosphatase 234 H (38-126) Units/L Ammonia 17 L (18-72) mcmol/L Creatine Kinase 86 (29-168) Units/L Troponin I 0.06 H* (0-0.03) ng/mL B-Natriuretic Peptide (0-100) pg/mL Serum Total Protein 7.7 (6.0-8.3) g/dL Albumin 3.5 (3.5-5.0) g/dL Globulin 4.2 H (2.4-3.5) g/dL Albumin/Globulin Ratio 0.8 L (1.1-2.2) Beta-Hydroxybutyric Acd (0.02-0.27) mmol/L TSH 6.165 H (0.350-4.840) mcIU/mL Free T4 (0.70-1.48) ng/dl Free T3 (1.71-3.71) pg/mL Ur Specimen Adequacy Urine Color (Yellow) Urine Clarity (Clear) Urine pH (5.0-8.0) pH Units Ur Specific [employer] (1.010-1.025) Urine Protein (Neg-Trace) mg/dL Urine Glucose (UA) (Normal) mg/dL Urine Ketones (Negative) mg/dL Urine Blood (Negative) Urine Nitrite (Negative) Urine Bilirubin (Negative) Urine Urobilinogen (Normal) mg/dL Ur Leukocyte Esterase (Negative) Urine Microscopic RBC (0-3) per hpf Urine Microscopic WBC (0-3) per hpf Ur Squamous Epith Cells (None-Few) per lpf Ur Transition Epith Cell (None-Few) per hpf Urine Bacteria (None-Few) per hpf Ur Culture Indicated? (NO) Urine Opiates Screen (Tsepqs=781) ng/mL Ur Barbiturates Screen (Wckjuv=680) ng/mL Ur Phencyclidine Scrn (Cutoff=25) ng/mL Ur Amphetamines Screen (Bouipt=9350) ng/mL U Benzodiazepines Scrn (Lcooac=420) ng/mL Urine Cocaine Screen (Cutoff= 300) ng/mL U Marijuana (THC) Screen (Cutoff = 50) ng/mL Ethyl Alcohol < 10 (0-10) mg/dL Hep Bs Antigen (Nonreactive) Hep Bs Antibody mIU/mL 01/06/17 01/06/17 01/06/17 Range/Units 06:30 06:44 06:44 WBC (4.3-11.1) K/mcL RBC (3.82-4.97) M/mcL Hgb (11.5-15.4) g/dL Hct (35.3-44.9) % MCV (83.0-100.0) fL MCH (28.0-33.3) pg MCHC (31.6-35.5) g/dL RDW (11.5-14.5) % Plt Count (140-400) K/mcL MPV (9.4-12.4) fL Immature Gran % (0-4) % Seg Neutrophils % % Lymphocytes % % Monocytes % % Eosinophils % % Basophils % % Neutrophils # (1.6-8.9) K/mcL Lymphocytes # (0.6-4.6) K/mcL Monocytes # (0.0-1.3) K/mcL Eosinophils # (0.0-0.6) K/mcL Basophils # (0.0-0.2) K/mcL PT (9.4-12.1) Seconds INR APTT (26.0-36.0) Seconds VBG pH (7.32-7.42) pH Units VBG pCO2 (41-51) mmHg VBG pO2 (25-40) mmHg VBG HCO3 (21-27) mEq/L Sodium (136-145) mEq/L Potassium (3.5-4.5) mEq/L Chloride (98-109) mEq/L Carbon Dioxide (19-29) mEq/L BUN (7-20) mg/dL Creatinine (0.57-1.11) mg/dL Est GFR ( Amer) (> 60) Est GFR (Non-Af Amer) (> 60) BUN/Creatinine Ratio (6-26) Glucose (70-99) mg/dL POC Glucose (58-89) Calculated Osmolality (280-300) Lactic Acid (0.5-2.2) mmol/L Calcium (8.6-10.8) mg/dL Phosphorus (2.3-4.7) mg/dL Magnesium (1.6-2.6) mg/dL Total Bilirubin (0.2-1.2) mg/dL Direct Bilirubin (0.0-0.5) mg/dL Indirect Bilirubin (0.0-1.2) mg/dL AST (5-34) Units/L ALT (0-55) Units/L Alkaline Phosphatase (38-126) Units/L Ammonia (18-72) mcmol/L Creatine Kinase (29-168) Units/L Troponin I (0-0.03) ng/mL B-Natriuretic Peptide (0-100) pg/mL Serum Total Protein (6.0-8.3) g/dL Albumin (3.5-5.0) g/dL Globulin (2.4-3.5) g/dL Albumin/Globulin Ratio (1.1-2.2) Beta-Hydroxybutyric Acd 0.20 (0.02-0.27) mmol/L TSH (0.350-4.840) mcIU/mL Free T4 (0.70-1.48) ng/dl Free T3 (1.71-3.71) pg/mL Ur Specimen Adequacy See below A Urine Color Light Yellow (Yellow) Urine Clarity Turbid A (Clear) Urine pH 6.5 (5.0-8.0) pH Units Ur Specific [employer] 1.029 H (1.010-1.025) Urine Protein >=1000 H (Neg-Trace) mg/dL Urine Glucose (UA) >=1000 H (Normal) mg/dL Urine Ketones Trace H (Negative) mg/dL Urine Blood Moderate H (Negative) Urine Nitrite Negative (Negative) Urine Bilirubin Negative (Negative) Urine Urobilinogen Normal (Normal) mg/dL Ur Leukocyte Esterase Large H (Negative) Urine Microscopic RBC 15-30 H (0-3) per hpf Urine Microscopic WBC TNTC H (0-3) per hpf Ur Squamous Epith Cells Few (None-Few) per lpf Ur Transition Epith Cell Few (None-Few) per hpf Urine Bacteria Moderate H (None-Few) per hpf Ur Culture Indicated? YES A (NO) Urine Opiates Screen Negative (Huivgx=552) ng/mL Ur Barbiturates Screen Negative (Mjpftm=569) ng/mL Ur Phencyclidine Scrn Negative (Cutoff=25) ng/mL Ur Amphetamines Screen Negative (Vfgmcm=4507) ng/mL U Benzodiazepines Scrn Negative (Gkedvc=673) ng/mL Urine Cocaine Screen Negative (Cutoff= 300) ng/mL U Marijuana (THC) Screen Negative (Cutoff = 50) ng/mL Ethyl Alcohol (0-10) mg/dL Hep Bs Antigen (Nonreactive) Hep Bs Antibody mIU/mL 01/06/17 01/06/17 01/06/17 Range/Units 07:47 07:47 07:48 WBC (4.3-11.1) K/mcL RBC (3.82-4.97) M/mcL Hgb (11.5-15.4) g/dL Hct (35.3-44.9) % MCV (83.0-100.0) fL MCH (28.0-33.3) pg MCHC (31.6-35.5) g/dL RDW (11.5-14.5) % Plt Count (140-400) K/mcL MPV (9.4-12.4) fL Immature Gran % (0-4) % Seg Neutrophils % % Lymphocytes % % Monocytes % % Eosinophils % % Basophils % % Neutrophils # (1.6-8.9) K/mcL Lymphocytes # (0.6-4.6) K/mcL Monocytes # (0.0-1.3) K/mcL Eosinophils # (0.0-0.6) K/mcL Basophils # (0.0-0.2) K/mcL PT (9.4-12.1) Seconds INR APTT (26.0-36.0) Seconds VBG pH 7.31 L (7.32-7.42) pH Units VBG pCO2 39 L (41-51) mmHg VBG pO2 70 H (25-40) mmHg VBG HCO3 19.6 L (21-27) mEq/L Sodium (136-145) mEq/L Potassium (3.5-4.5) mEq/L Chloride (98-109) mEq/L Carbon Dioxide (19-29) mEq/L BUN (7-20) mg/dL Creatinine (0.57-1.11) mg/dL Est GFR ( Amer) (> 60) Est GFR (Non-Af Amer) (> 60) BUN/Creatinine Ratio (6-26) Glucose (70-99) mg/dL POC Glucose (58-89) Calculated Osmolality (280-300) Lactic Acid 1.5 (0.5-2.2) mmol/L Calcium (8.6-10.8) mg/dL Phosphorus (2.3-4.7) mg/dL Magnesium (1.6-2.6) mg/dL Total Bilirubin (0.2-1.2) mg/dL Direct Bilirubin (0.0-0.5) mg/dL Indirect Bilirubin (0.0-1.2) mg/dL AST (5-34) Units/L ALT (0-55) Units/L Alkaline Phosphatase (38-126) Units/L Ammonia (18-72) mcmol/L Creatine Kinase (29-168) Units/L Troponin I (0-0.03) ng/mL B-Natriuretic Peptide (0-100) pg/mL Serum Total Protein (6.0-8.3) g/dL Albumin (3.5-5.0) g/dL Globulin (2.4-3.5) g/dL Albumin/Globulin Ratio (1.1-2.2) Beta-Hydroxybutyric Acd (0.02-0.27) mmol/L TSH (0.350-4.840) mcIU/mL Free T4 0.78 (0.70-1.48) ng/dl Free T3 < 1.00 L (1.71-3.71) pg/mL Ur Specimen Adequacy Urine Color (Yellow) Urine Clarity (Clear) Urine pH (5.0-8.0) pH Units Ur Specific [employer] (1.010-1.025) Urine Protein (Neg-Trace) mg/dL Urine Glucose (UA) (Normal) mg/dL Urine Ketones (Negative) mg/dL Urine Blood (Negative) Urine Nitrite (Negative) Urine Bilirubin (Negative) Urine Urobilinogen (Normal) mg/dL Ur Leukocyte Esterase (Negative) Urine Microscopic RBC (0-3) per hpf Urine Microscopic WBC (0-3) per hpf Ur Squamous Epith Cells (None-Few) per lpf Ur Transition Epith Cell (None-Few) per hpf Urine Bacteria (None-Few) per hpf Ur Culture Indicated? (NO) Urine Opiates Screen (Hqqbnx=069) ng/mL Ur Barbiturates Screen (Gjknuv=596) ng/mL Ur Phencyclidine Scrn (Cutoff=25) ng/mL Ur Amphetamines Screen (Kmifky=5551) ng/mL U Benzodiazepines Scrn (Oanmwh=723) ng/mL Urine Cocaine Screen (Cutoff= 300) ng/mL U Marijuana (THC) Screen (Cutoff = 50) ng/mL Ethyl Alcohol (0-10) mg/dL Hep Bs Antigen (Nonreactive) Hep Bs Antibody mIU/mL 01/06/17 01/06/17 01/06/17 Range/Units 07:48 10:17 10:18 WBC (4.3-11.1) K/mcL RBC (3.82-4.97) M/mcL Hgb (11.5-15.4) g/dL Hct (35.3-44.9) % MCV (83.0-100.0) fL MCH (28.0-33.3) pg MCHC (31.6-35.5) g/dL RDW (11.5-14.5) % Plt Count (140-400) K/mcL MPV (9.4-12.4) fL Immature Gran % (0-4) % Seg Neutrophils % % Lymphocytes % % Monocytes % % Eosinophils % % Basophils % % Neutrophils # (1.6-8.9) K/mcL Lymphocytes # (0.6-4.6) K/mcL Monocytes # (0.0-1.3) K/mcL Eosinophils # (0.0-0.6) K/mcL Basophils # (0.0-0.2) K/mcL PT (9.4-12.1) Seconds INR APTT (26.0-36.0) Seconds VBG pH (7.32-7.42) pH Units VBG pCO2 (41-51) mmHg VBG pO2 (25-40) mmHg VBG HCO3 (21-27) mEq/L Sodium (136-145) mEq/L Potassium (3.5-4.5) mEq/L Chloride (98-109) mEq/L Carbon Dioxide (19-29) mEq/L BUN (7-20) mg/dL Creatinine (0.57-1.11) mg/dL Est GFR ( Amer) (> 60) Est GFR (Non-Af Amer) (> 60) BUN/Creatinine Ratio (6-26) Glucose (70-99) mg/dL POC Glucose 567 H* 572 H* (58-89) Calculated Osmolality (280-300) Lactic Acid (0.5-2.2) mmol/L Calcium (8.6-10.8) mg/dL Phosphorus (2.3-4.7) mg/dL Magnesium (1.6-2.6) mg/dL Total Bilirubin (0.2-1.2) mg/dL Direct Bilirubin (0.0-0.5) mg/dL Indirect Bilirubin (0.0-1.2) mg/dL AST (5-34) Units/L ALT (0-55) Units/L Alkaline Phosphatase (38-126) Units/L Ammonia (18-72) mcmol/L Creatine Kinase (29-168) Units/L Troponin I (0-0.03) ng/mL B-Natriuretic Peptide 3123 H (0-100) pg/mL Serum Total Protein (6.0-8.3) g/dL Albumin (3.5-5.0) g/dL Globulin (2.4-3.5) g/dL Albumin/Globulin Ratio (1.1-2.2) Beta-Hydroxybutyric Acd (0.02-0.27) mmol/L TSH (0.350-4.840) mcIU/mL Free T4 (0.70-1.48) ng/dl Free T3 (1.71-3.71) pg/mL Ur Specimen Adequacy Urine Color (Yellow) Urine Clarity (Clear) Urine pH (5.0-8.0) pH Units Ur Specific [employer] (1.010-1.025) Urine Protein (Neg-Trace) mg/dL Urine Glucose (UA) (Normal) mg/dL Urine Ketones (Negative) mg/dL Urine Blood (Negative) Urine Nitrite (Negative) Urine Bilirubin (Negative) Urine Urobilinogen (Normal) mg/dL Ur Leukocyte Esterase (Negative) Urine Microscopic RBC (0-3) per hpf Urine Microscopic WBC (0-3) per hpf Ur Squamous Epith Cells (None-Few) per lpf Ur Transition Epith Cell (None-Few) per hpf Urine Bacteria (None-Few) per hpf Ur Culture Indicated? (NO) Urine Opiates Screen (Nmlzni=670) ng/mL Ur Barbiturates Screen (Nshesp=471) ng/mL Ur Phencyclidine Scrn (Cutoff=25) ng/mL Ur Amphetamines Screen (Haxbds=0172) ng/mL U Benzodiazepines Scrn (Udawoh=263) ng/mL Urine Cocaine Screen (Cutoff= 300) ng/mL U Marijuana (THC) Screen (Cutoff = 50) ng/mL Ethyl Alcohol (0-10) mg/dL Hep Bs Antigen (Nonreactive) Hep Bs Antibody mIU/mL 01/06/17 01/06/17 01/06/17 Range/Units 11:16 11:18 11:18 WBC (4.3-11.1) K/mcL RBC (3.82-4.97) M/mcL Hgb (11.5-15.4) g/dL Hct (35.3-44.9) % MCV (83.0-100.0) fL MCH (28.0-33.3) pg MCHC (31.6-35.5) g/dL RDW (11.5-14.5) % Plt Count (140-400) K/mcL MPV (9.4-12.4) fL Immature Gran % (0-4) % Seg Neutrophils % % Lymphocytes % % Monocytes % % Eosinophils % % Basophils % % Neutrophils # (1.6-8.9) K/mcL Lymphocytes # (0.6-4.6) K/mcL Monocytes # (0.0-1.3) K/mcL Eosinophils # (0.0-0.6) K/mcL Basophils # (0.0-0.2) K/mcL PT (9.4-12.1) Seconds INR APTT (26.0-36.0) Seconds VBG pH (7.32-7.42) pH Units VBG pCO2 (41-51) mmHg VBG pO2 (25-40) mmHg VBG HCO3 (21-27) mEq/L Sodium (136-145) mEq/L Potassium (3.5-4.5) mEq/L Chloride (98-109) mEq/L Carbon Dioxide (19-29) mEq/L BUN (7-20) mg/dL Creatinine (0.57-1.11) mg/dL Est GFR ( Amer) (> 60) Est GFR (Non-Af Amer) (> 60) BUN/Creatinine Ratio (6-26) Glucose (70-99) mg/dL POC Glucose 478 H* (58-89) Calculated Osmolality (280-300) Lactic Acid (0.5-2.2) mmol/L Calcium (8.6-10.8) mg/dL Phosphorus (2.3-4.7) mg/dL Magnesium (1.6-2.6) mg/dL Total Bilirubin (0.2-1.2) mg/dL Direct Bilirubin (0.0-0.5) mg/dL Indirect Bilirubin (0.0-1.2) mg/dL AST (5-34) Units/L ALT (0-55) Units/L Alkaline Phosphatase (38-126) Units/L Ammonia (18-72) mcmol/L Creatine Kinase (29-168) Units/L Troponin I 0.05 H* (0-0.03) ng/mL B-Natriuretic Peptide (0-100) pg/mL Serum Total Protein (6.0-8.3) g/dL Albumin (3.5-5.0) g/dL Globulin (2.4-3.5) g/dL Albumin/Globulin Ratio (1.1-2.2) Beta-Hydroxybutyric Acd (0.02-0.27) mmol/L TSH (0.350-4.840) mcIU/mL Free T4 (0.70-1.48) ng/dl Free T3 (1.71-3.71) pg/mL Ur Specimen Adequacy Urine Color (Yellow) Urine Clarity (Clear) Urine pH (5.0-8.0) pH Units Ur Specific [employer] (1.010-1.025) Urine Protein (Neg-Trace) mg/dL Urine Glucose (UA) (Normal) mg/dL Urine Ketones (Negative) mg/dL Urine Blood (Negative) Urine Nitrite (Negative) Urine Bilirubin (Negative) Urine Urobilinogen (Normal) mg/dL Ur Leukocyte Esterase (Negative) Urine Microscopic RBC (0-3) per hpf Urine Microscopic WBC (0-3) per hpf Ur Squamous Epith Cells (None-Few) per lpf Ur Transition Epith Cell (None-Few) per hpf Urine Bacteria (None-Few) per hpf Ur Culture Indicated? (NO) Urine Opiates Screen (Gmgtpq=069) ng/mL Ur Barbiturates Screen (Spgxwd=896) ng/mL Ur Phencyclidine Scrn (Cutoff=25) ng/mL Ur Amphetamines Screen (Yyknas=8753) ng/mL U Benzodiazepines Scrn (Uarbrk=423) ng/mL Urine Cocaine Screen (Cutoff= 300) ng/mL U Marijuana (THC) Screen (Cutoff = 50) ng/mL Ethyl Alcohol (0-10) mg/dL Hep Bs Antigen Nonreactive (Nonreactive) Hep Bs Antibody 4.85 mIU/mL 01/06/17 01/06/17 01/06/17 Range/Units 11:46 12:36 12:59 WBC (4.3-11.1) K/mcL RBC (3.82-4.97) M/mcL Hgb (11.5-15.4) g/dL Hct (35.3-44.9) % MCV (83.0-100.0) fL MCH (28.0-33.3) pg MCHC (31.6-35.5) g/dL RDW (11.5-14.5) % Plt Count (140-400) K/mcL MPV (9.4-12.4) fL Immature Gran % (0-4) % Seg Neutrophils % % Lymphocytes % % Monocytes % % Eosinophils % % Basophils % % Neutrophils # (1.6-8.9) K/mcL Lymphocytes # (0.6-4.6) K/mcL Monocytes # (0.0-1.3) K/mcL Eosinophils # (0.0-0.6) K/mcL Basophils # (0.0-0.2) K/mcL PT (9.4-12.1) Seconds INR APTT (26.0-36.0) Seconds VBG pH (7.32-7.42) pH Units VBG pCO2 (41-51) mmHg VBG pO2 (25-40) mmHg VBG HCO3 (21-27) mEq/L Sodium (136-145) mEq/L Potassium (3.5-4.5) mEq/L Chloride (98-109) mEq/L Carbon Dioxide (19-29) mEq/L BUN (7-20) mg/dL Creatinine (0.57-1.11) mg/dL Est GFR ( Amer) (> 60) Est GFR (Non-Af Amer) (> 60) BUN/Creatinine Ratio (6-26) Glucose (70-99) mg/dL POC Glucose 493 H* 366 H 345 H (58-89) Calculated Osmolality (280-300) Lactic Acid (0.5-2.2) mmol/L Calcium (8.6-10.8) mg/dL Phosphorus (2.3-4.7) mg/dL Magnesium (1.6-2.6) mg/dL Total Bilirubin (0.2-1.2) mg/dL Direct Bilirubin (0.0-0.5) mg/dL Indirect Bilirubin (0.0-1.2) mg/dL AST (5-34) Units/L ALT (0-55) Units/L Alkaline Phosphatase (38-126) Units/L Ammonia (18-72) mcmol/L Creatine Kinase (29-168) Units/L Troponin I (0-0.03) ng/mL B-Natriuretic Peptide (0-100) pg/mL Serum Total Protein (6.0-8.3) g/dL Albumin (3.5-5.0) g/dL Globulin (2.4-3.5) g/dL Albumin/Globulin Ratio (1.1-2.2) Beta-Hydroxybutyric Acd (0.02-0.27) mmol/L TSH (0.350-4.840) mcIU/mL Free T4 (0.70-1.48) ng/dl Free T3 (1.71-3.71) pg/mL Ur Specimen Adequacy Urine Color (Yellow) Urine Clarity (Clear) Urine pH (5.0-8.0) pH Units Ur Specific [employer] (1.010-1.025) Urine Protein (Neg-Trace) mg/dL Urine Glucose (UA) (Normal) mg/dL Urine Ketones (Negative) mg/dL Urine Blood (Negative) Urine Nitrite (Negative) Urine Bilirubin (Negative) Urine Urobilinogen (Normal) mg/dL Ur Leukocyte Esterase (Negative) Urine Microscopic RBC (0-3) per hpf Urine Microscopic WBC (0-3) per hpf Ur Squamous Epith Cells (None-Few) per lpf Ur Transition Epith Cell (None-Few) per hpf Urine Bacteria (None-Few) per hpf Ur Culture Indicated? (NO) Urine Opiates Screen (Oaezas=081) ng/mL Ur Barbiturates Screen (Dbvwfl=834) ng/mL Ur Phencyclidine Scrn (Cutoff=25) ng/mL Ur Amphetamines Screen (Ileekg=7505) ng/mL U Benzodiazepines Scrn (Nofibn=666) ng/mL Urine Cocaine Screen (Cutoff= 300) ng/mL U Marijuana (THC) Screen (Cutoff = 50) ng/mL Ethyl Alcohol (0-10) mg/dL Hep Bs Antigen (Nonreactive) Hep Bs Antibody mIU/mL 01/06/17 01/06/17 Range/Units 13:58 15:03 WBC (4.3-11.1) K/mcL RBC (3.82-4.97) M/mcL Hgb (11.5-15.4) g/dL Hct (35.3-44.9) % MCV (83.0-100.0) fL MCH (28.0-33.3) pg MCHC (31.6-35.5) g/dL RDW (11.5-14.5) % Plt Count (140-400) K/mcL MPV (9.4-12.4) fL Immature Gran % (0-4) % Seg Neutrophils % % Lymphocytes % % Monocytes % % Eosinophils % % Basophils % % Neutrophils # (1.6-8.9) K/mcL Lymphocytes # (0.6-4.6) K/mcL Monocytes # (0.0-1.3) K/mcL Eosinophils # (0.0-0.6) K/mcL Basophils # (0.0-0.2) K/mcL PT (9.4-12.1) Seconds INR APTT (26.0-36.0) Seconds VBG pH (7.32-7.42) pH Units VBG pCO2 (41-51) mmHg VBG pO2 (25-40) mmHg VBG HCO3 (21-27) mEq/L Sodium (136-145) mEq/L Potassium (3.5-4.5) mEq/L Chloride (98-109) mEq/L Carbon Dioxide (19-29) mEq/L BUN (7-20) mg/dL Creatinine (0.57-1.11) mg/dL Est GFR ( Amer) (> 60) Est GFR (Non-Af Amer) (> 60) BUN/Creatinine Ratio (6-26) Glucose (70-99) mg/dL POC Glucose 214 H 120 H (58-89) Calculated Osmolality (280-300) Lactic Acid (0.5-2.2) mmol/L Calcium (8.6-10.8) mg/dL Phosphorus (2.3-4.7) mg/dL Magnesium (1.6-2.6) mg/dL Total Bilirubin (0.2-1.2) mg/dL Direct Bilirubin (0.0-0.5) mg/dL Indirect Bilirubin (0.0-1.2) mg/dL AST (5-34) Units/L ALT (0-55) Units/L Alkaline Phosphatase (38-126) Units/L Ammonia (18-72) mcmol/L Creatine Kinase (29-168) Units/L Troponin I (0-0.03) ng/mL B-Natriuretic Peptide (0-100) pg/mL Serum Total Protein (6.0-8.3) g/dL Albumin (3.5-5.0) g/dL Globulin (2.4-3.5) g/dL Albumin/Globulin Ratio (1.1-2.2) Beta-Hydroxybutyric Acd (0.02-0.27) mmol/L TSH (0.350-4.840) mcIU/mL Free T4 (0.70-1.48) ng/dl Free T3 (1.71-3.71) pg/mL Ur Specimen Adequacy Urine Color (Yellow) Urine Clarity (Clear) Urine pH (5.0-8.0) pH Units Ur Specific [employer] (1.010-1.025) Urine Protein (Neg-Trace) mg/dL Urine Glucose (UA) (Normal) mg/dL Urine Ketones (Negative) mg/dL Urine Blood (Negative) Urine Nitrite (Negative) Urine Bilirubin (Negative) Urine Urobilinogen (Normal) mg/dL Ur Leukocyte Esterase (Negative) Urine Microscopic RBC (0-3) per hpf Urine Microscopic WBC (0-3) per hpf Ur Squamous Epith Cells (None-Few) per lpf Ur Transition Epith Cell (None-Few) per hpf Urine Bacteria (None-Few) per hpf Ur Culture Indicated? (NO) Urine Opiates Screen (Wsgxwp=648) ng/mL Ur Barbiturates Screen (Yafjgb=935) ng/mL Ur Phencyclidine Scrn (Cutoff=25) ng/mL Ur Amphetamines Screen (Bzysxw=3433) ng/mL U Benzodiazepines Scrn (Loqevw=462) ng/mL Urine Cocaine Screen (Cutoff= 300) ng/mL U Marijuana (THC) Screen (Cutoff = 50) ng/mL Ethyl Alcohol (0-10) mg/dL Hep Bs Antigen (Nonreactive) Hep Bs Antibody mIU/mL Attestation Statement - Attestation Attestation: I, Zechariah Torrez MD, personally evaluated this patient and discussed their management with the resident physician. I reviewed the resident's note and agree with the documented findings, medical decision making, and plan of care. This patient was seen by the emergency department with Dr. Bob. Patient is a 71-year-old female was brought to the emergency department by ambulance from dialysis because of low oxygen saturations and decreased mental status. Here in the emergency department patient appears drowsy and sleepy but does respond to verbal stimuli and answers questions appropriately. She is chronically on oxygen at 2 L which was increased to 4 L by EMS and here in the ER on 4 L her oxygen saturation is in the lower 90s. She does admit to some increased shortness of breath especially when she is lying down. She denies chest pain. No abdominal pain. No vomiting. No fever. On examination patient is a well-developed well-nourished elderly female in no acute distress. She is drowsy but responds appropriately to verbal stimuli. No cyanosis or diaphoresis. Breath sounds are decreased but equal bilaterally. No definite rales or wheezes noted. Heart regular and bradycardic. Heart rate in the upper 40s. Abdomen soft and nontender with normal bowel sounds. Workup initiated. At shift change patient is signed out to the oncoming dayshift team Dr. Charles and Dr. De La Cruz.
--- NOTE | 2017-01-06 07:01 | Emergency Department Note ---
Disposition Clinical Impression: Acute exacerbation of chronic obstructive airways disease, End-stage renal disease on hemodialysis, Bradycardia with 41-50 beats per minute, Hyponatremia, Hypoxia, Acute metabolic encephalopathy, Hyperkalemia UTI (urinary tract infection) Qualifiers: Urinary tract infection type: site unspecified Hematuria presence: without hematuria Qualified Code(s): N39.0 - Urinary tract infection, site not specified Disposition: Admitted As Inpatient Condition: Fair Time of Disposition: 08:47 SOB HPI - General Chief Complaint: ED Shortness of Breath/Dyspnea Stated Complaint: low o2 Time Seen by Provider: 01/06/17 06:20 Source: patient, EMS Mode of arrival: EMS Limitations: altered mental status Nursing Notes Reviewed: Yes Vital Signs Reviewed: Yes - History of Present Illness This patient signed out to me by Dr. Bob. Report is, patient was brought in from dialysis center [facility] for symptomatic shortness of breath. Patient is on 2 L at home but was saturating at 90%. Patient was slow to respond but is alert and oriented 3. Patient's states patient had cough and congestion 3 days. Patient has a past medical history for COPD, DM, renal disease, hyperlipidemia, hypertension, thyroid disease, coronary artery disease and has a surgical history for hysterectomy. - Related Data Home Medications Medication Instructions Recorded Confirmed Levothyroxine Sodium [Synthroid] 200 mcg PO DAILY 02/08/16 01/06/17 Polyethylene Glycol 3350 [MiraLAX] 17 gm PO DAILY PRN 02/08/16 01/06/17 amLODIPine [Norvasc] 10 mg PO DAILY 02/14/16 01/06/17 Aspirin [Lo-Dose Aspirin EC] 81 mg PO DAILY 05/26/16 01/06/17 Atorvastatin [Lipitor] 40 mg PO DAILY 05/26/16 01/06/17 Calcium Acetate [Phos-LO] 1,334 mg PO TIDWM 05/26/16 01/06/17 Duloxetine HCl [Cymbalta] 30 mg PO DAILY 05/26/16 01/06/17 Ergocalciferol (VITAMIN D2) 50,000 unit PO WE 05/26/16 01/06/17 [Vitamin D2] Ezetimibe [Zetia] 10 mg PO DAILY 05/26/16 01/06/17 Febuxostat [Uloric] 80 mg PO DAILY 05/26/16 01/06/17 Furosemide [Lasix] 40 mg PO DAILY 05/26/16 01/06/17 Gabapentin [Neurontin] 300 mg PO DAILY 05/26/16 01/06/17 Hydralazine HCl 50 mg PO Q8H 05/26/16 01/06/17 Insulin Glargine [Lantus] 5 - 20 unit SQ DAILY PRN 05/26/16 01/06/17 Isosorbide MONOnitrate (24 HR) 120 mg PO DAILY 05/26/16 01/06/17 [Imdur] LORazepam [Ativan] 0.5 - 1 mg PO BID PRN 05/26/16 01/06/17 Metoprolol XL (24 HR) Succ [Toprol 50 mg PO DAILY 05/26/16 01/06/17 XL] Renal Vitamin [Renal Caps Softgel] 1 mg PO DAILY 05/26/16 01/06/17 Allopurinol [Zyloprim 300 MG] 300 mg PO DAILY 05/27/16 01/06/17 Insulin LISPRO [HumaLOG] 0 units SQ DAILY PRN MDD 110 units 05/27/16 01/06/17 daily Meloxicam 15 mg PO DAILY 05/27/16 01/06/17 Nitroglycerin 0.1 mg TP DAILY 08/11/16 01/06/17 Ondansetron ODT [Zofran ODT] 4 mg SL Q6HR PRN 08/11/16 01/06/17 Tramadol HCl [Ultram] 50 mg PO Q6HR PRN 08/11/16 01/06/17 Cinacalcet [Sensipar] 30 mg PO DAILY 01/06/17 01/06/17 Oxycodone HCl 10 mg PO TID PRN 01/06/17 01/06/17 Previous Rx's Medication Instructions Recorded Docusate [Colace] 100 mg PO BID PRN 30 Days 02/19/16 Lidocaine Patch [Lidoderm 5% patch] 1 each TP DAILY #10 08/19/16 Allergies Allergy/AdvReac Type Severity Reaction Status Date / Time IVP DYE Allergy See Uncoded 01/01/16 09:03 Comments ivp dye Allergy See Uncoded 05/27/16 08:00 Comments Constitutional: Denies: fever Cardiovascular: Reports: dyspnea on exertion. Denies: chest pain Respiratory: Reports: cough, dyspnea Gastrointestinal: Denies: vomiting Musculoskeletal: Denies: neck pain Past Medical History - Past Medical History Medical history: Reports: diabetes, renal disease, hyperlipidemia, hypertension , thyroid disease, coronary artery disease, dialysis Surgical history: Reports: orthopedic, other, other, hysterectomy, vascular surgery Psychiatric history: Reports: no psych history, anxiety, depression - Social History Smoking Status: Never smoker Smokeless Tobacco Status: No Alcohol use: Reports: none Drug use: Reports: none Physical Exam - General Limitations: altered mental status, other (Patient is a 71-year-old female who is alert and oriented 3 but slow to respond to questioning but does answer questions correctly. Patient appears very tired and fatigued) General appearance: alert, in no apparent distress, lethargic (Arouses easily) - Head Head exam: atraumatic, normocephalic, normal inspection - Eye Eye exam: Present: normal appearance, PERRL, EOMI - ENT ENT exam: normal exam, normal oropharynx, mucous membranes moist - Neck Neck exam: Present: normal inspection, full ROM, trachea midline - Chest Chest inspection: Present: normal inspection, symmetric chest wall rise - Respiratory Respiratory exam: Present: other (Rales auscultated base of bilateral lung thomas) - Cardiovascular Cardiovascular exam: Present: bradycardia - Abdominal Exam Abdominal exam: Present: soft, Non-Tender. Absent: tenderness, distention, guarding, rebound, rigidity - Extremities Exam Extremities exam: Present: normal inspection, full ROM. Absent: tenderness, pedal edema - Neurological Exam Neurological exam: Present: alert, oriented X3 - Skin Skin exam: Present: warm, dry, intact, normal color. Absent: diaphoresis, pallor, mottled Course - Reevaluation(s) Reevaluation #1: Patient concern for sepsis secondary to possibly pulmonary versus urinary tract. Ordered cultures, lactic acids. Time: 06:30 Reevaluation #2: Lab called with a critical kind of troponin 0.06 DuoNeb 3 ordered for COPD exacerbation Time: 07:13 Reevaluation #3: Urine positive for urinary tract infection, 1 g Rocephin ordered. No prior sensitivities seen on reports from microbiology Time: 07:47 - Consultations Consultation #1: Prisca Cano the Hospitalist has accepted Pt for Admission at 0844 hrs. Time: 08:45 Vital Signs Temperature 98.6 F 01/06/17 06:19 Pulse Rate 49 01/06/17 06:19 Respiratory Rate 16 01/06/17 06:19 Blood Pressure 166/66 01/06/17 06:19 O2 Sat by Pulse Oximetry 92 01/06/17 06:19 Temperature 98.1 F 01/08/17 07:54 Pulse Rate 96 01/08/17 07:54 Respiratory Rate 19 01/08/17 07:54 Blood Pressure 137/82 01/08/17 07:54 O2 Sat by Pulse Oximetry 94 01/08/17 08:10 Oxygen Delivery Oxygen Delivery Room Air Shortness of Breath/Dyspnea - MDM Narrative Medical decision making narrative: Patient brought in from dialysis secondary to smoke lethargic, patient is alert and oriented 3 currently stable condition. Patient concerning for metabolic encephalopathy, DKA, ACS/ND,, pneumonia, UTI. Beta hydroxybutyric acid negative. The glucose is 625. Starting patient on IV insulin. Patient was found to be hyponatremic, hyperkalemic, with BUN and creatinine higher than previous. Patient requires dialysis. Patient was started on ceftriaxone 1 g for UTI. Chest x-ray shows and advanced imaging Chest X-Ray 01/06/17 06:22 IMPRESSION: Moderate congestive failure. D/ / Moiz Washington MD / Moiz Washington MD Interpreting Provider: Moiz Washington MD Head CT 01/06/17 06:22 IMPRESSION: No acute intracranial abnormality. D/ / Atul Del Rio MD / Atul Del Rio MD Interpreting Provider: Atul Del Rio MD Patient is accepted for admission - Lab Data Lab results reviewed: Yes I reviewed the patient's lab results. Lab results narrative: Short CBC 01/06/17 Range/Units 06:30 WBC 10.9 (4.3-11.1) K/mcL Hgb 11.8 (11.5-15.4) g/dL Hct 34.8 L (35.3-44.9) % Plt Count 272 (140-400) K/mcL Neutrophils # 6.8 (1.6-8.9) K/mcL BMP 01/06/17 Range/Units 06:30 Sodium 124 L (136-145) mEq/L Potassium 6.1 H (3.5-4.5) mEq/L Chloride 86 L (98-109) mEq/L Carbon Dioxide 19 (19-29) mEq/L BUN 94 H (7-20) mg/dL Creatinine 7.95 H (0.57-1.11) mg/dL Glucose 625 H* (70-99) mg/dL Calcium 9.1 (8.6-10.8) mg/dL Cardiac Enzymes 01/06/17 Range/Units 06:30 Troponin I 0.06 H* (0-0.03) ng/mL Liver Function 01/06/17 Range/Units 06:30 Total Bilirubin 0.6 (0.2-1.2) mg/dL Direct Bilirubin 0.2 (0.0-0.5) mg/dL AST 23 (5-34) Units/L ALT 19 (0-55) Units/L Alkaline Phosphatase 234 H (38-126) Units/L Albumin 3.5 (3.5-5.0) g/dL Urine 01/06/17 Range/Units 06:44 Urine Color Light Yellow (Yellow) Urine Clarity Turbid A (Clear) Urine pH 6.5 (5.0-8.0) pH Units Ur Specific [place] 1.029 H (1.010-1.025) Urine Protein >=1000 H (Neg-Trace) mg/dL Urine Glucose (UA) >=1000 H (Normal) mg/dL Result diagrams: 01/08/17 03:23 01/08/17 03:23 Lab Results 01/06/17 01/06/17 01/06/17 Range/Units 06:25 06:30 06:30 WBC 10.9 (4.3-11.1) K/mcL RBC 3.66 L (3.82-4.97) M/mcL Hgb 11.8 (11.5-15.4) g/dL Hct 34.8 L (35.3-44.9) % MCV 95.1 (83.0-100.0) fL MCH 32.2 (28.0-33.3) pg MCHC 33.9 (31.6-35.5) g/dL RDW 14.2 (11.5-14.5) % Plt Count 272 (140-400) K/mcL MPV 11.3 (9.4-12.4) fL Immature Gran % 0.3 (0-4) % Seg Neutrophils % 62.5 % Lymphocytes % 27.6 % Monocytes % 7.9 % Eosinophils % 1.4 % Basophils % 0.3 % Neutrophils # 6.8 (1.6-8.9) K/mcL Lymphocytes # 3.0 (0.6-4.6) K/mcL Monocytes # 0.9 (0.0-1.3) K/mcL Eosinophils # 0.2 (0.0-0.6) K/mcL Basophils # 0.0 (0.0-0.2) K/mcL PT 9.9 (9.4-12.1) Seconds INR 0.9 APTT 28.6 (26.0-36.0) Seconds VBG pH (7.32-7.42) pH Units VBG pCO2 (41-51) mmHg VBG pO2 (25-40) mmHg VBG HCO3 (21-27) mEq/L Sodium (136-145) mEq/L Potassium (3.5-4.5) mEq/L Chloride (98-109) mEq/L Carbon Dioxide (19-29) mEq/L BUN (7-20) mg/dL Creatinine (0.57-1.11) mg/dL Est GFR ( Amer) (> 60) Est GFR (Non-Af Amer) (> 60) BUN/Creatinine Ratio (6-26) Glucose (70-99) mg/dL POC Glucose 564 H* (58-89) Calculated Osmolality (280-300) Lactic Acid (0.5-2.2) mmol/L Calcium (8.6-10.8) mg/dL Phosphorus (2.3-4.7) mg/dL Magnesium (1.6-2.6) mg/dL Total Bilirubin (0.2-1.2) mg/dL Direct Bilirubin (0.0-0.5) mg/dL Indirect Bilirubin (0.0-1.2) mg/dL AST (5-34) Units/L ALT (0-55) Units/L Alkaline Phosphatase (38-126) Units/L Ammonia (18-72) mcmol/L Creatine Kinase (29-168) Units/L Troponin I (0-0.03) ng/mL B-Natriuretic Peptide (0-100) pg/mL Serum Total Protein (6.0-8.3) g/dL Albumin (3.5-5.0) g/dL Globulin (2.4-3.5) g/dL Albumin/Globulin Ratio (1.1-2.2) Beta-Hydroxybutyric Acd (0.02-0.27) mmol/L TSH (0.350-4.840) mcIU/mL Free T4 (0.70-1.48) ng/dl Free T3 (1.71-3.71) pg/mL Ur Specimen Adequacy Urine Color (Yellow) Urine Clarity (Clear) Urine pH (5.0-8.0) pH Units Ur Specific [place] (1.010-1.025) Urine Protein (Neg-Trace) mg/dL Urine Glucose (UA) (Normal) mg/dL Urine Ketones (Negative) mg/dL Urine Blood (Negative) Urine Nitrite (Negative) Urine Bilirubin (Negative) Urine Urobilinogen (Normal) mg/dL Ur Leukocyte Esterase (Negative) Urine Microscopic RBC (0-3) per hpf Urine Microscopic WBC (0-3) per hpf Ur Squamous Epith Cells (None-Few) per lpf Ur Transition Epith Cell (None-Few) per hpf Urine Bacteria (None-Few) per hpf Ur Culture Indicated? (NO) Urine Opiates Screen (Rmkora=324) ng/mL Ur Barbiturates Screen (Stqavw=557) ng/mL Ur Phencyclidine Scrn (Cutoff=25) ng/mL Ur Amphetamines Screen (Iijlfp=9329) ng/mL U Benzodiazepines Scrn (Qctxba=954) ng/mL Urine Cocaine Screen (Cutoff= 300) ng/mL U Marijuana (THC) Screen (Cutoff = 50) ng/mL Ethyl Alcohol (0-10) mg/dL Hep Bs Antigen (Nonreactive) Hep Bs Antibody mIU/mL 01/06/17 01/06/17 01/06/17 Range/Units 06:30 06:30 06:30 WBC (4.3-11.1) K/mcL RBC (3.82-4.97) M/mcL Hgb (11.5-15.4) g/dL Hct (35.3-44.9) % MCV (83.0-100.0) fL MCH (28.0-33.3) pg MCHC (31.6-35.5) g/dL RDW (11.5-14.5) % Plt Count (140-400) K/mcL MPV (9.4-12.4) fL Immature Gran % (0-4) % Seg Neutrophils % % Lymphocytes % % Monocytes % % Eosinophils % % Basophils % % Neutrophils # (1.6-8.9) K/mcL Lymphocytes # (0.6-4.6) K/mcL Monocytes # (0.0-1.3) K/mcL Eosinophils # (0.0-0.6) K/mcL Basophils # (0.0-0.2) K/mcL PT (9.4-12.1) Seconds INR APTT (26.0-36.0) Seconds VBG pH (7.32-7.42) pH Units VBG pCO2 (41-51) mmHg VBG pO2 (25-40) mmHg VBG HCO3 (21-27) mEq/L Sodium 124 L (136-145) mEq/L Potassium 6.1 H (3.5-4.5) mEq/L Chloride 86 L (98-109) mEq/L Carbon Dioxide 19 (19-29) mEq/L BUN 94 H (7-20) mg/dL Creatinine 7.95 H (0.57-1.11) mg/dL Est GFR ( Amer) 6 L (> 60) Est GFR (Non-Af Amer) 5 L (> 60) BUN/Creatinine Ratio 12 (6-26) Glucose 625 H* (70-99) mg/dL POC Glucose (58-89) Calculated Osmolality 316 H (280-300) Lactic Acid (0.5-2.2) mmol/L Calcium 9.1 (8.6-10.8) mg/dL Phosphorus 6.2 H (2.3-4.7) mg/dL Magnesium 2.3 (1.6-2.6) mg/dL Total Bilirubin 0.6 (0.2-1.2) mg/dL Direct Bilirubin 0.2 (0.0-0.5) mg/dL Indirect Bilirubin 0.4 (0.0-1.2) mg/dL AST 23 (5-34) Units/L ALT 19 (0-55) Units/L Alkaline Phosphatase 234 H (38-126) Units/L Ammonia 17 L (18-72) mcmol/L Creatine Kinase 86 (29-168) Units/L Troponin I 0.06 H* (0-0.03) ng/mL B-Natriuretic Peptide (0-100) pg/mL Serum Total Protein 7.7 (6.0-8.3) g/dL Albumin 3.5 (3.5-5.0) g/dL Globulin 4.2 H (2.4-3.5) g/dL Albumin/Globulin Ratio 0.8 L (1.1-2.2) Beta-Hydroxybutyric Acd (0.02-0.27) mmol/L TSH 6.165 H (0.350-4.840) mcIU/mL Free T4 (0.70-1.48) ng/dl Free T3 (1.71-3.71) pg/mL Ur Specimen Adequacy Urine Color (Yellow) Urine Clarity (Clear) Urine pH (5.0-8.0) pH Units Ur Specific [place] (1.010-1.025) Urine Protein (Neg-Trace) mg/dL Urine Glucose (UA) (Normal) mg/dL Urine Ketones (Negative) mg/dL Urine Blood (Negative) Urine Nitrite (Negative) Urine Bilirubin (Negative) Urine Urobilinogen (Normal) mg/dL Ur Leukocyte Esterase (Negative) Urine Microscopic RBC (0-3) per hpf Urine Microscopic WBC (0-3) per hpf Ur Squamous Epith Cells (None-Few) per lpf Ur Transition Epith Cell (None-Few) per hpf Urine Bacteria (None-Few) per hpf Ur Culture Indicated? (NO) Urine Opiates Screen (Vblnyv=450) ng/mL Ur Barbiturates Screen (Wkrtir=142) ng/mL Ur Phencyclidine Scrn (Cutoff=25) ng/mL Ur Amphetamines Screen (Flksbe=8435) ng/mL U Benzodiazepines Scrn (Hejyke=576) ng/mL Urine Cocaine Screen (Cutoff= 300) ng/mL U Marijuana (THC) Screen (Cutoff = 50) ng/mL Ethyl Alcohol < 10 (0-10) mg/dL Hep Bs Antigen (Nonreactive) Hep Bs Antibody mIU/mL 01/06/17 01/06/17 01/06/17 Range/Units 06:30 06:44 06:44 WBC (4.3-11.1) K/mcL RBC (3.82-4.97) M/mcL Hgb (11.5-15.4) g/dL Hct (35.3-44.9) % MCV (83.0-100.0) fL MCH (28.0-33.3) pg MCHC (31.6-35.5) g/dL RDW (11.5-14.5) % Plt Count (140-400) K/mcL MPV (9.4-12.4) fL Immature Gran % (0-4) % Seg Neutrophils % % Lymphocytes % % Monocytes % % Eosinophils % % Basophils % % Neutrophils # (1.6-8.9) K/mcL Lymphocytes # (0.6-4.6) K/mcL Monocytes # (0.0-1.3) K/mcL Eosinophils # (0.0-0.6) K/mcL Basophils # (0.0-0.2) K/mcL PT (9.4-12.1) Seconds INR APTT (26.0-36.0) Seconds VBG pH (7.32-7.42) pH Units VBG pCO2 (41-51) mmHg VBG pO2 (25-40) mmHg VBG HCO3 (21-27) mEq/L Sodium (136-145) mEq/L Potassium (3.5-4.5) mEq/L Chloride (98-109) mEq/L Carbon Dioxide (19-29) mEq/L BUN (7-20) mg/dL Creatinine (0.57-1.11) mg/dL Est GFR ( Amer) (> 60) Est GFR (Non-Af Amer) (> 60) BUN/Creatinine Ratio (6-26) Glucose (70-99) mg/dL POC Glucose (58-89) Calculated Osmolality (280-300) Lactic Acid (0.5-2.2) mmol/L Calcium (8.6-10.8) mg/dL Phosphorus (2.3-4.7) mg/dL Magnesium (1.6-2.6) mg/dL Total Bilirubin (0.2-1.2) mg/dL Direct Bilirubin (0.0-0.5) mg/dL Indirect Bilirubin (0.0-1.2) mg/dL AST (5-34) Units/L ALT (0-55) Units/L Alkaline Phosphatase (38-126) Units/L Ammonia (18-72) mcmol/L Creatine Kinase (29-168) Units/L Troponin I (0-0.03) ng/mL B-Natriuretic Peptide (0-100) pg/mL Serum Total Protein (6.0-8.3) g/dL Albumin (3.5-5.0) g/dL Globulin (2.4-3.5) g/dL Albumin/Globulin Ratio (1.1-2.2) Beta-Hydroxybutyric Acd 0.20 (0.02-0.27) mmol/L TSH (0.350-4.840) mcIU/mL Free T4 (0.70-1.48) ng/dl Free T3 (1.71-3.71) pg/mL Ur Specimen Adequacy See below A Urine Color Light Yellow (Yellow) Urine Clarity Turbid A (Clear) Urine pH 6.5 (5.0-8.0) pH Units Ur Specific [place] 1.029 H (1.010-1.025) Urine Protein >=1000 H (Neg-Trace) mg/dL Urine Glucose (UA) >=1000 H (Normal) mg/dL Urine Ketones Trace H (Negative) mg/dL Urine Blood Moderate H (Negative) Urine Nitrite Negative (Negative) Urine Bilirubin Negative (Negative) Urine Urobilinogen Normal (Normal) mg/dL Ur Leukocyte Esterase Large H (Negative) Urine Microscopic RBC 15-30 H (0-3) per hpf Urine Microscopic WBC TNTC H (0-3) per hpf Ur Squamous Epith Cells Few (None-Few) per lpf Ur Transition Epith Cell Few (None-Few) per hpf Urine Bacteria Moderate H (None-Few) per hpf Ur Culture Indicated? YES A (NO) Urine Opiates Screen Negative (Ekebkk=144) ng/mL Ur Barbiturates Screen Negative (Wkvzwa=452) ng/mL Ur Phencyclidine Scrn Negative (Cutoff=25) ng/mL Ur Amphetamines Screen Negative (Wdqdxx=4126) ng/mL U Benzodiazepines Scrn Negative (Zicbra=606) ng/mL Urine Cocaine Screen Negative (Cutoff= 300) ng/mL U Marijuana (THC) Screen Negative (Cutoff = 50) ng/mL Ethyl Alcohol (0-10) mg/dL Hep Bs Antigen (Nonreactive) Hep Bs Antibody mIU/mL 01/06/17 01/06/17 01/06/17 Range/Units 07:47 07:47 07:48 WBC (4.3-11.1) K/mcL RBC (3.82-4.97) M/mcL Hgb (11.5-15.4) g/dL Hct (35.3-44.9) % MCV (83.0-100.0) fL MCH (28.0-33.3) pg MCHC (31.6-35.5) g/dL RDW (11.5-14.5) % Plt Count (140-400) K/mcL MPV (9.4-12.4) fL Immature Gran % (0-4) % Seg Neutrophils % % Lymphocytes % % Monocytes % % Eosinophils % % Basophils % % Neutrophils # (1.6-8.9) K/mcL Lymphocytes # (0.6-4.6) K/mcL Monocytes # (0.0-1.3) K/mcL Eosinophils # (0.0-0.6) K/mcL Basophils # (0.0-0.2) K/mcL PT (9.4-12.1) Seconds INR APTT (26.0-36.0) Seconds VBG pH 7.31 L (7.32-7.42) pH Units VBG pCO2 39 L (41-51) mmHg VBG pO2 70 H (25-40) mmHg VBG HCO3 19.6 L (21-27) mEq/L Sodium (136-145) mEq/L Potassium (3.5-4.5) mEq/L Chloride (98-109) mEq/L Carbon Dioxide (19-29) mEq/L BUN (7-20) mg/dL Creatinine (0.57-1.11) mg/dL Est GFR ( Amer) (> 60) Est GFR (Non-Af Amer) (> 60) BUN/Creatinine Ratio (6-26) Glucose (70-99) mg/dL POC Glucose (58-89) Calculated Osmolality (280-300) Lactic Acid 1.5 (0.5-2.2) mmol/L Calcium (8.6-10.8) mg/dL Phosphorus (2.3-4.7) mg/dL Magnesium (1.6-2.6) mg/dL Total Bilirubin (0.2-1.2) mg/dL Direct Bilirubin (0.0-0.5) mg/dL Indirect Bilirubin (0.0-1.2) mg/dL AST (5-34) Units/L ALT (0-55) Units/L Alkaline Phosphatase (38-126) Units/L Ammonia (18-72) mcmol/L Creatine Kinase (29-168) Units/L Troponin I (0-0.03) ng/mL B-Natriuretic Peptide (0-100) pg/mL Serum Total Protein (6.0-8.3) g/dL Albumin (3.5-5.0) g/dL Globulin (2.4-3.5) g/dL Albumin/Globulin Ratio (1.1-2.2) Beta-Hydroxybutyric Acd (0.02-0.27) mmol/L TSH (0.350-4.840) mcIU/mL Free T4 0.78 (0.70-1.48) ng/dl Free T3 < 1.00 L (1.71-3.71) pg/mL Ur Specimen Adequacy Urine Color (Yellow) Urine Clarity (Clear) Urine pH (5.0-8.0) pH Units Ur Specific [place] (1.010-1.025) Urine Protein (Neg-Trace) mg/dL Urine Glucose (UA) (Normal) mg/dL Urine Ketones (Negative) mg/dL Urine Blood (Negative) Urine Nitrite (Negative) Urine Bilirubin (Negative) Urine Urobilinogen (Normal) mg/dL Ur Leukocyte Esterase (Negative) Urine Microscopic RBC (0-3) per hpf Urine Microscopic WBC (0-3) per hpf Ur Squamous Epith Cells (None-Few) per lpf Ur Transition Epith Cell (None-Few) per hpf Urine Bacteria (None-Few) per hpf Ur Culture Indicated? (NO) Urine Opiates Screen (Gywega=759) ng/mL Ur Barbiturates Screen (Ndxdbt=213) ng/mL Ur Phencyclidine Scrn (Cutoff=25) ng/mL Ur Amphetamines Screen (Kwvhly=7909) ng/mL U Benzodiazepines Scrn (Rsyyur=541) ng/mL Urine Cocaine Screen (Cutoff= 300) ng/mL U Marijuana (THC) Screen (Cutoff = 50) ng/mL Ethyl Alcohol (0-10) mg/dL Hep Bs Antigen (Nonreactive) Hep Bs Antibody mIU/mL 01/06/17 01/06/17 01/06/17 Range/Units 07:48 10:17 10:18 WBC (4.3-11.1) K/mcL RBC (3.82-4.97) M/mcL Hgb (11.5-15.4) g/dL Hct (35.3-44.9) % MCV (83.0-100.0) fL MCH (28.0-33.3) pg MCHC (31.6-35.5) g/dL RDW (11.5-14.5) % Plt Count (140-400) K/mcL MPV (9.4-12.4) fL Immature Gran % (0-4) % Seg Neutrophils % % Lymphocytes % % Monocytes % % Eosinophils % % Basophils % % Neutrophils # (1.6-8.9) K/mcL Lymphocytes # (0.6-4.6) K/mcL Monocytes # (0.0-1.3) K/mcL Eosinophils # (0.0-0.6) K/mcL Basophils # (0.0-0.2) K/mcL PT (9.4-12.1) Seconds INR APTT (26.0-36.0) Seconds VBG pH (7.32-7.42) pH Units VBG pCO2 (41-51) mmHg VBG pO2 (25-40) mmHg VBG HCO3 (21-27) mEq/L Sodium (136-145) mEq/L Potassium (3.5-4.5) mEq/L Chloride (98-109) mEq/L Carbon Dioxide (19-29) mEq/L BUN (7-20) mg/dL Creatinine (0.57-1.11) mg/dL Est GFR ( Amer) (> 60) Est GFR (Non-Af Amer) (> 60) BUN/Creatinine Ratio (6-26) Glucose (70-99) mg/dL POC Glucose 567 H* 572 H* (58-89) Calculated Osmolality (280-300) Lactic Acid (0.5-2.2) mmol/L Calcium (8.6-10.8) mg/dL Phosphorus (2.3-4.7) mg/dL Magnesium (1.6-2.6) mg/dL Total Bilirubin (0.2-1.2) mg/dL Direct Bilirubin (0.0-0.5) mg/dL Indirect Bilirubin (0.0-1.2) mg/dL AST (5-34) Units/L ALT (0-55) Units/L Alkaline Phosphatase (38-126) Units/L Ammonia (18-72) mcmol/L Creatine Kinase (29-168) Units/L Troponin I (0-0.03) ng/mL B-Natriuretic Peptide 3123 H (0-100) pg/mL Serum Total Protein (6.0-8.3) g/dL Albumin (3.5-5.0) g/dL Globulin (2.4-3.5) g/dL Albumin/Globulin Ratio (1.1-2.2) Beta-Hydroxybutyric Acd (0.02-0.27) mmol/L TSH (0.350-4.840) mcIU/mL Free T4 (0.70-1.48) ng/dl Free T3 (1.71-3.71) pg/mL Ur Specimen Adequacy Urine Color (Yellow) Urine Clarity (Clear) Urine pH (5.0-8.0) pH Units Ur Specific [place] (1.010-1.025) Urine Protein (Neg-Trace) mg/dL Urine Glucose (UA) (Normal) mg/dL Urine Ketones (Negative) mg/dL Urine Blood (Negative) Urine Nitrite (Negative) Urine Bilirubin (Negative) Urine Urobilinogen (Normal) mg/dL Ur Leukocyte Esterase (Negative) Urine Microscopic RBC (0-3) per hpf Urine Microscopic WBC (0-3) per hpf Ur Squamous Epith Cells (None-Few) per lpf Ur Transition Epith Cell (None-Few) per hpf Urine Bacteria (None-Few) per hpf Ur Culture Indicated? (NO) Urine Opiates Screen (Izlekc=103) ng/mL Ur Barbiturates Screen (Btrmiv=614) ng/mL Ur Phencyclidine Scrn (Cutoff=25) ng/mL Ur Amphetamines Screen (Akpiwu=1439) ng/mL U Benzodiazepines Scrn (Hftijr=986) ng/mL Urine Cocaine Screen (Cutoff= 300) ng/mL U Marijuana (THC) Screen (Cutoff = 50) ng/mL Ethyl Alcohol (0-10) mg/dL Hep Bs Antigen (Nonreactive) Hep Bs Antibody mIU/mL 01/06/17 01/06/17 01/06/17 Range/Units 11:16 11:18 11:18 WBC (4.3-11.1) K/mcL RBC (3.82-4.97) M/mcL Hgb (11.5-15.4) g/dL Hct (35.3-44.9) % MCV (83.0-100.0) fL MCH (28.0-33.3) pg MCHC (31.6-35.5) g/dL RDW (11.5-14.5) % Plt Count (140-400) K/mcL MPV (9.4-12.4) fL Immature Gran % (0-4) % Seg Neutrophils % % Lymphocytes % % Monocytes % % Eosinophils % % Basophils % % Neutrophils # (1.6-8.9) K/mcL Lymphocytes # (0.6-4.6) K/mcL Monocytes # (0.0-1.3) K/mcL Eosinophils # (0.0-0.6) K/mcL Basophils # (0.0-0.2) K/mcL PT (9.4-12.1) Seconds INR APTT (26.0-36.0) Seconds VBG pH (7.32-7.42) pH Units VBG pCO2 (41-51) mmHg VBG pO2 (25-40) mmHg VBG HCO3 (21-27) mEq/L Sodium (136-145) mEq/L Potassium (3.5-4.5) mEq/L Chloride (98-109) mEq/L Carbon Dioxide (19-29) mEq/L BUN (7-20) mg/dL Creatinine (0.57-1.11) mg/dL Est GFR ( Amer) (> 60) Est GFR (Non-Af Amer) (> 60) BUN/Creatinine Ratio (6-26) Glucose (70-99) mg/dL POC Glucose 478 H* (58-89) Calculated Osmolality (280-300) Lactic Acid (0.5-2.2) mmol/L Calcium (8.6-10.8) mg/dL Phosphorus (2.3-4.7) mg/dL Magnesium (1.6-2.6) mg/dL Total Bilirubin (0.2-1.2) mg/dL Direct Bilirubin (0.0-0.5) mg/dL Indirect Bilirubin (0.0-1.2) mg/dL AST (5-34) Units/L ALT (0-55) Units/L Alkaline Phosphatase (38-126) Units/L Ammonia (18-72) mcmol/L Creatine Kinase (29-168) Units/L Troponin I 0.05 H* (0-0.03) ng/mL B-Natriuretic Peptide (0-100) pg/mL Serum Total Protein (6.0-8.3) g/dL Albumin (3.5-5.0) g/dL Globulin (2.4-3.5) g/dL Albumin/Globulin Ratio (1.1-2.2) Beta-Hydroxybutyric Acd (0.02-0.27) mmol/L TSH (0.350-4.840) mcIU/mL Free T4 (0.70-1.48) ng/dl Free T3 (1.71-3.71) pg/mL Ur Specimen Adequacy Urine Color (Yellow) Urine Clarity (Clear) Urine pH (5.0-8.0) pH Units Ur Specific [place] (1.010-1.025) Urine Protein (Neg-Trace) mg/dL Urine Glucose (UA) (Normal) mg/dL Urine Ketones (Negative) mg/dL Urine Blood (Negative) Urine Nitrite (Negative) Urine Bilirubin (Negative) Urine Urobilinogen (Normal) mg/dL Ur Leukocyte Esterase (Negative) Urine Microscopic RBC (0-3) per hpf Urine Microscopic WBC (0-3) per hpf Ur Squamous Epith Cells (None-Few) per lpf Ur Transition Epith Cell (None-Few) per hpf Urine Bacteria (None-Few) per hpf Ur Culture Indicated? (NO) Urine Opiates Screen (Qrwgcg=974) ng/mL Ur Barbiturates Screen (Tladck=007) ng/mL Ur Phencyclidine Scrn (Cutoff=25) ng/mL Ur Amphetamines Screen (Zxkvnv=3144) ng/mL U Benzodiazepines Scrn (Jjvzgf=922) ng/mL Urine Cocaine Screen (Cutoff= 300) ng/mL U Marijuana (THC) Screen (Cutoff = 50) ng/mL Ethyl Alcohol (0-10) mg/dL Hep Bs Antigen Nonreactive (Nonreactive) Hep Bs Antibody 4.85 mIU/mL 01/06/17 01/06/17 01/06/17 Range/Units 11:46 12:36 12:59 WBC (4.3-11.1) K/mcL RBC (3.82-4.97) M/mcL Hgb (11.5-15.4) g/dL Hct (35.3-44.9) % MCV (83.0-100.0) fL MCH (28.0-33.3) pg MCHC (31.6-35.5) g/dL RDW (11.5-14.5) % Plt Count (140-400) K/mcL MPV (9.4-12.4) fL Immature Gran % (0-4) % Seg Neutrophils % % Lymphocytes % % Monocytes % % Eosinophils % % Basophils % % Neutrophils # (1.6-8.9) K/mcL Lymphocytes # (0.6-4.6) K/mcL Monocytes # (0.0-1.3) K/mcL Eosinophils # (0.0-0.6) K/mcL Basophils # (0.0-0.2) K/mcL PT (9.4-12.1) Seconds INR APTT (26.0-36.0) Seconds VBG pH (7.32-7.42) pH Units VBG pCO2 (41-51) mmHg VBG pO2 (25-40) mmHg VBG HCO3 (21-27) mEq/L Sodium (136-145) mEq/L Potassium (3.5-4.5) mEq/L Chloride (98-109) mEq/L Carbon Dioxide (19-29) mEq/L BUN (7-20) mg/dL Creatinine (0.57-1.11) mg/dL Est GFR ( Amer) (> 60) Est GFR (Non-Af Amer) (> 60) BUN/Creatinine Ratio (6-26) Glucose (70-99) mg/dL POC Glucose 493 H* 366 H 345 H (58-89) Calculated Osmolality (280-300) Lactic Acid (0.5-2.2) mmol/L Calcium (8.6-10.8) mg/dL Phosphorus (2.3-4.7) mg/dL Magnesium (1.6-2.6) mg/dL Total Bilirubin (0.2-1.2) mg/dL Direct Bilirubin (0.0-0.5) mg/dL Indirect Bilirubin (0.0-1.2) mg/dL AST (5-34) Units/L ALT (0-55) Units/L Alkaline Phosphatase (38-126) Units/L Ammonia (18-72) mcmol/L Creatine Kinase (29-168) Units/L Troponin I (0-0.03) ng/mL B-Natriuretic Peptide (0-100) pg/mL Serum Total Protein (6.0-8.3) g/dL Albumin (3.5-5.0) g/dL Globulin (2.4-3.5) g/dL Albumin/Globulin Ratio (1.1-2.2) Beta-Hydroxybutyric Acd (0.02-0.27) mmol/L TSH (0.350-4.840) mcIU/mL Free T4 (0.70-1.48) ng/dl Free T3 (1.71-3.71) pg/mL Ur Specimen Adequacy Urine Color (Yellow) Urine Clarity (Clear) Urine pH (5.0-8.0) pH Units Ur Specific [place] (1.010-1.025) Urine Protein (Neg-Trace) mg/dL Urine Glucose (UA) (Normal) mg/dL Urine Ketones (Negative) mg/dL Urine Blood (Negative) Urine Nitrite (Negative) Urine Bilirubin (Negative) Urine Urobilinogen (Normal) mg/dL Ur Leukocyte Esterase (Negative) Urine Microscopic RBC (0-3) per hpf Urine Microscopic WBC (0-3) per hpf Ur Squamous Epith Cells (None-Few) per lpf Ur Transition Epith Cell (None-Few) per hpf Urine Bacteria (None-Few) per hpf Ur Culture Indicated? (NO) Urine Opiates Screen (Fvfdiz=335) ng/mL Ur Barbiturates Screen (Swzzop=748) ng/mL Ur Phencyclidine Scrn (Cutoff=25) ng/mL Ur Amphetamines Screen (Wctloh=4419) ng/mL U Benzodiazepines Scrn (Gioacj=700) ng/mL Urine Cocaine Screen (Cutoff= 300) ng/mL U Marijuana (THC) Screen (Cutoff = 50) ng/mL Ethyl Alcohol (0-10) mg/dL Hep Bs Antigen (Nonreactive) Hep Bs Antibody mIU/mL 09/04/17 09/04/17 09/04/17 Range/Units 13:58 15:03 16:07 WBC (4.3-11.1) K/mcL RBC (3.82-4.97) M/mcL Hgb (11.5-15.4) g/dL Hct (35.3-44.9) % MCV (83.0-100.0) fL MCH (28.0-33.3) pg MCHC (31.6-35.5) g/dL RDW (11.5-14.5) % Plt Count (140-400) K/mcL MPV (9.4-12.4) fL Immature Gran % (0-4) % Seg Neutrophils % % Lymphocytes % % Monocytes % % Eosinophils % % Basophils % % Neutrophils # (1.6-8.9) K/mcL Lymphocytes # (0.6-4.6) K/mcL Monocytes # (0.0-1.3) K/mcL Eosinophils # (0.0-0.6) K/mcL Basophils # (0.0-0.2) K/mcL PT (9.4-12.1) Seconds INR APTT (26.0-36.0) Seconds VBG pH (7.32-7.42) pH Units VBG pCO2 (41-51) mmHg VBG pO2 (25-40) mmHg VBG HCO3 (21-27) mEq/L Sodium (136-145) mEq/L Potassium (3.5-4.5) mEq/L Chloride (98-109) mEq/L Carbon Dioxide (19-29) mEq/L BUN (7-20) mg/dL Creatinine (0.57-1.11) mg/dL Est GFR ( Amer) (> 60) Est GFR (Non-Af Amer) (> 60) BUN/Creatinine Ratio (6-26) Glucose (70-99) mg/dL POC Glucose 214 H 120 H 96 H (58-89) Calculated Osmolality (280-300) Lactic Acid (0.5-2.2) mmol/L Calcium (8.6-10.8) mg/dL Phosphorus (2.3-4.7) mg/dL Magnesium (1.6-2.6) mg/dL Total Bilirubin (0.2-1.2) mg/dL Direct Bilirubin (0.0-0.5) mg/dL Indirect Bilirubin (0.0-1.2) mg/dL AST (5-34) Units/L ALT (0-55) Units/L Alkaline Phosphatase (38-126) Units/L Ammonia (18-72) mcmol/L Creatine Kinase (29-168) Units/L Troponin I (0-0.03) ng/mL B-Natriuretic Peptide (0-100) pg/mL Serum Total Protein (6.0-8.3) g/dL Albumin (3.5-5.0) g/dL Globulin (2.4-3.5) g/dL Albumin/Globulin Ratio (1.1-2.2) Beta-Hydroxybutyric Acd (0.02-0.27) mmol/L TSH (0.350-4.840) mcIU/mL Free T4 (0.70-1.48) ng/dl Free T3 (1.71-3.71) pg/mL Ur Specimen Adequacy Urine Color (Yellow) Urine Clarity (Clear) Urine pH (5.0-8.0) pH Units Ur Specific [place] (1.010-1.025) Urine Protein (Neg-Trace) mg/dL Urine Glucose (UA) (Normal) mg/dL Urine Ketones (Negative) mg/dL Urine Blood (Negative) Urine Nitrite (Negative) Urine Bilirubin (Negative) Urine Urobilinogen (Normal) mg/dL Ur Leukocyte Esterase (Negative) Urine Microscopic RBC (0-3) per hpf Urine Microscopic WBC (0-3) per hpf Ur Squamous Epith Cells (None-Few) per lpf Ur Transition Epith Cell (None-Few) per hpf Urine Bacteria (None-Few) per hpf Ur Culture Indicated? (NO) Urine Opiates Screen (Nsxqfq=555) ng/mL Ur Barbiturates Screen (Kkutkn=075) ng/mL Ur Phencyclidine Scrn (Cutoff=25) ng/mL Ur Amphetamines Screen (Pjxadx=5193) ng/mL U Benzodiazepines Scrn (Gtwkaq=881) ng/mL Urine Cocaine Screen (Cutoff= 300) ng/mL U Marijuana (THC) Screen (Cutoff = 50) ng/mL Ethyl Alcohol (0-10) mg/dL Hep Bs Antigen (Nonreactive) Hep Bs Antibody mIU/mL - Radiology Data Radiology results reviewed: Yes I reviewed the patient's radiology results. Chest X-Ray 01/06/17 06:22 IMPRESSION: Moderate congestive failure. D/ / Moiz Washington MD / Moiz Washington MD Interpreting Provider: Moiz Washington MD Head CT 01/06/17 06:22 IMPRESSION: No acute intracranial abnormality. D/ / Atul Del Rio MD / Atul Del Rio MD Interpreting Provider: Atul Del Rio MD - EKG Data EKG attestation: Yes I reviewed and interpreted this EKG. EKG results narrative: EKG taken for January 2017 and 0630 hrs. shows a sinus bradycardia at a rate of 48 bpm with a first-degree AV block with no acute ST elevations depressed in any leads, no S1 Q3 T3 , no Wellons, no Scarbosa criteria,note her us widening or QT prolongation. This EKG taken 08/10/2016 and shows A. fib at a rate of 74 bpm no signs of ischemia.. Attestation Statement - Attestation Attestation: I examined this patient and my medical decision-making was reviewed with the Resident Physician. I agree with the documented findings, disposition and treatment plan as described except to the extent set forth below. Fluid overload, pt due for dialysis this AM. Pt is not hyponatremic - has pseudohyponatremia d/t hyperglycemia, corrected sodium is normal. Hyper K+ is mild, will be fixed once she dialyzes. UTI treated in ED, uncertain how long it will be until we can get her dialyzed.
[2017-01-06 07:02] LABS: Amphetamine Screen,Urine Negative ng/mL (Cutoff=1000); Barbiturate Screen,Urine Negative ng/mL (Cutoff=200); Benzodiazepines Screen,Urine Negative ng/mL (Cutoff=200); Cannabinoid Screen,Urine Negative ng/mL (Cutoff = 50); Cocaine Screen,Urine Negative ng/mL (Cutoff= 300); Opiate Screen,Urine Negative ng/mL (Cutoff=300); Phencyclidine Screen,Urine Negative ng/mL (Cutoff=25)
[2017-01-06 07:07] LABS: Basophils % 0.3 %; Eosinophils # 0.2 K/mcL (0.0-0.6); Eosinophils % 1.4 %; Hematocrit 34.8 % (35.3-44.9); Hemoglobin 11.8 g/dL (11.5-15.4); Immature Granulocytes % 0.3 % (0-4); Lymphocytes % 27.6 %; Mean Corpuscular HGB Conc 33.9 g/dL (31.6-35.5); Mean Corpuscular Hemoglobin 32.2 pg (28.0-33.3); Mean Corpuscular Volume 95.1 fL (83.0-100.0); Mean Platelet Volume 11.3 fL (9.4-12.4); Monocytes # 0.9 K/mcL (0.0-1.3); Monocytes % 7.9 %; Neutrophils # 6.8 K/mcL (1.6-8.9); Platelet Count 272 K/mcL (140-400); Red Blood Count 3.66 M/mcL (3.82-4.97); Red Cell Distribution Width 14.2 % (11.5-14.5); Segmented Neutrophils % 62.5 %
[2017-01-06] MEDS ORDERED: Ipratropium/Albuterol Neb 3 ML IH ONE (07:10)
[2017-01-06 07:17] LABS: INR 0.9; Prothrombin Time 9.9 Seconds (9.4-12.1)
[2017-01-06 07:20] LABS: Activated Partial Thrombo Time 28.6 Seconds (26.0-36.0); Alanine Aminotransferase 19 Units/L (0-55); Albumin 3.5 g/dL (3.5-5.0); Albumin/Globulin Ratio 0.8 (1.1-2.2); Alkaline Phosphatase 234 Units/L (38-126); Aspartate Amino Transferase 23 Units/L (5-34); BUN/Creatinine Ratio 12 (6-26); Bilirubin,Direct 0.2 mg/dL (0.0-0.5); Bilirubin,Indirect 0.4 mg/dL (0.0-1.2); Bilirubin,Total 0.6 mg/dL (0.2-1.2); Blood Urea Nitrogen 94 mg/dL (7-20); Calcium 9.1 mg/dL (8.6-10.8); Carbon Dioxide 19 mEq/L (19-29); Chloride 86 mEq/L (98-109); Creatine Kinase 86 Units/L (29-168); Globulin 4.2 g/dL (2.4-3.5); Magnesium 2.3 mg/dL (1.6-2.6); Osmolality,Calculated 316 (280-300); Phosphorous 6.2 mg/dL (2.3-4.7); Potassium 6.1 mEq/L (3.5-4.5); Sodium 124 mEq/L (136-145); Total Protein 7.7 g/dL (6.0-8.3); eGFR For African Americans 6 (> 60); eGFR For Non-African Americans 5 (> 60)
[2017-01-06 07:24] LABS: Ethanol < 10 mg/dL (0-10); Glucose 625 mg/dL (70-99)
[2017-01-06 07:25] LABS: Bilirubin,Urine Negative (Negative); Clarity,Urine Turbid (Clear); Color,Urine Light Yellow (Yellow); Glucose,Urine (UA) >=1000 mg/dL (Normal); Ketones,Urine Trace mg/dL (Negative)
[2017-01-06 07:26] LABS: Blood,Urine Moderate (Negative); Leukocyte Esterase,Urine Large (Negative); Nitrite,Urine Negative (Negative); PH,Urine 6.5 pH Units (5.0-8.0); Protein,Urine >=1000 mg/dL (Neg-Trace); Specific Gravity,Urine 1.029 (1.010-1.025); Urobilinogen,Urine Normal (Normal)
[2017-01-06 07:27] LABS: RBC,Urine 15-30 per hpf (0-3); Squamous Epithelial Cell,Urine Few per lpf (None-Few); WBC,Urine TNTC per hpf (0-3)
[2017-01-06 07:28] LABS: Bacteria,Urine Moderate per hpf (None-Few); Transitional Epi Cells,Urine Few per hpf (None-Few)
[2017-01-06 07:40] LABS: Thyroid Stimulating Hormone 6.165 mcIU/mL (0.350-4.840)
[2017-01-06 08:04] LABS: VBG HCO3 19.6 mEq/L (21-27); VBG PH 7.31 pH Units (7.32-7.42)
[2017-01-06] MEDS ORDERED: Insulin Human Regular 100 UNIT in 0.9 % Sodium Chloride 100 ML IVC SCH (09:00)
[2017-01-06] MEDS ORDERED: Naloxone 0.4 MG/ML INJ IVP PRN (09:26)
[2017-01-06] MEDS ORDERED: 0.9 % Sodium Chloride 500 ML ONE (10:16)
[2017-01-06] MEDS ORDERED: Calcium Gluconate 1,000 MG in D5% in Water 100 ML IVPB ONE (10:17)
[2017-01-06] MEDS ORDERED: Insulin Human Regular 10 UNIT in 0.9 % Sodium Chloride 10 ML IV ONE (10:20)
[2017-01-06] MEDS ORDERED: Calcium Gluconate 2,000 MG in D5% in Water 100 ML IVPB ONE (10:24)
[2017-01-06] MEDS ORDERED: Insulin Regular, Human 100 UNIT/ML SQ ONE (10:24)
[2017-01-06] MEDS ORDERED: Insulin Regular, Human 100 UNIT/ML IV ONE (10:24)
[2017-01-06] MEDS ORDERED: Albuterol 2.5 MG/3 ML NEBULIZER IH PRN (10:29)
--- NOTE | 2017-01-06 10:46 | Internal Med History&Physical ---
<Prisca Cano - Last Filed: 01/06/17 18:58> Date of Encounter: 01/06/17 Time of Encounter: 10:45 Assessment and Plan (1) Acute respiratory failure with hypoxia Current visit: Yes Status: Acute 1 patient had episode of hypoxia with PO2 of 70% this a.m. she does have a history of COPD is oxygen dependent. Chest x-ray just shows some moderate congestion. Elevated BNP at 3123. However patient has been experiencing nonproductive cough and cold symptoms over the past few days. We will continue with oxygen titrated to maintain SPO2 greater than 92% 2 we will recheck chest x-ray in a.m. to rule out any possible pneumonia 3 patient will undergo dialysis (2) Encephalopathy acute Current visit: Yes Status: Acute 1 must likely related to infectious process and hypoxic state. Electrolytes imbalance-We will obtain blood cultures and initiate antibiotic coverage, nephrology has been consulted for dialysis (3) Hypothyroid Current visit: Yes Status: Acute 1 patient has history of hypothyroidism her TSH is 6.145, Free T4 was 0.78 Free t3 <1.0 she was initiated on Liothyronine will continue with Synthroid Qualifiers: Hypothyroidism type: unspecified Qualified Code(s): E03.9 - Hypothyroidism , unspecified (4) HCAP (healthcare-associated pneumonia) Current visit: Yes Status: Suspected 1 with recent onset of cold symptoms and sick exposure at dialysis center. We will cover for possible HCAP. Blood cultures have been obtained 2 continue with vancomycin and Zosyn for now 3 bronchodilators 4 titrate oxygen to maintain SPO2 greater than 92% 5 recheck x-ray in a.m. (5) UTI (urinary tract infection) Current visit: Yes Status: Acute Patient is a dialysis patient receiving dialysis Friday. She had a change in mental state this a.m. and was hypoxic. Urinalysis did reveal positive moderate amount of leuk estras as well as bacteria and blood. Urine has been sent for culture obtained blood cultures 2 we will initiate Zosyn for coverage Qualifiers: Urinary tract infection type: site unspecified Hematuria presence: without hematuria Qualified Code(s): N39.0 - Urinary tract infection, site not specified (6) Hyponatremia Current visit: Yes Status: Acute 1 patient's sodium is 124 she is hyperglycemic-suspect related to hyperglycemia and volume overload with blood sugars 625 we will continue with insulin drip as well as patient will be dialyzed 2 continue to monitor chemistry 3 seizure precautions (7) Hyperkalemia Current visit: Yes Status: Acute 1 potassium 6.1 patient given 6 units of regular insulin as well as calcium gluconate. She will be dialyzed today (8) ESRD (end stage renal disease) on dialysis Current visit: Yes Status: Acute 1 patient receives dialysis Friday and Fridays consulted nephrology who will dialyze today (9) Bradycardia with 41-50 beats per minute Current visit: Yes Status: Acute Patient is bradycardic heart rate in the 40s blood pressure is stable., Does not appear to be symptomatic Unsure if this is related to her hyperkalemia or her hypothyroid. We will continue to monitor She is to undergo dialysis today and she is to receive liothyromine 2 cardiac monitoring (10) Elevated troponin I level Current visit: Yes Status: Acute 1 most likely related to renal disease-we will continue to trend troponins (11) ROMA (obstructive sleep apnea) Current visit: Yes Status: Acute CPAP at night (12) DVT prophylaxis Current visit: Yes Status: Acute Heparin subcutaneous Internal Medicine - H&P: HPI Chief complaint: Hypoxia AMS Admitted From: Emergency Dept Plans for Post Hospital Care: Home History of present illness: Ms. Moffett is a 71 year old female past medical history diabetes end stage renal disease dialysis Fridays osteomyelitis of vertebral lumbar region hypertension obstructive sleep apnea on CPAP COPD oxygen dependent. According to ER records and who is at bedside patient was transported to dialysis this morning upon arrival was noted her oxygen saturation was in the 70s and she had decreased level of consciousness. She is normally on 2 L of oxygen at home at all times, dialysis staff increased her oxygen to 4 L O2 sats came up to the 90s. The states that patient has been experiencing cold symptoms for the past few days no fevers or chills sputum productions nausea vomiting or diarrhea. No chest pain. She has been experiencing increasing shortness of breath over the past 2 weeks. She was transported to the ER for evaluation. Upon arrival patient was bradycardic with pulse of 49 her SPO2 is 94 on 4 L lab work did reveal no leukocytosis whether she did have hypernatremia with a sodium of 124 potassium was 6.1 her glucose was 625 creatinine was 7.95 phosphorus 6.2 her lactate was 1.5 TSH 6.145 BNP 3123. Urinalysis was positive for UTI. She was started on insulin drip given Rocephin and has been admitted for further workup and evaluation. Upon assessment patient is groggy but she answers questions appropriately and is oriented 3. Her lung sounds are diminished in bases with some coarse rhonchi. She has a moist nonproductive cough. Heart sounds are regular S1-S2 no rubs clicks gallops murmurs noted abdomen is soft and nontender no pedal edema. No open wounds noted. AV fistula to left arm with palpable thrill and bruit. EKG does not show any peaked T waves bradycardic sinus rhythm. She was given calcium gluconate as well as a bolus of regular insulin. I did speak with Dr. Jonas who will see the patient-and will dialyze. Dr. Lopez I assessed patient and reviewed case together Past Med Surg Social Fam HX - Past Medical History Medical history: diabetes, renal disease, hyperlipidemia, hypertension, thyroid disease, coronary artery disease, dialysis Psychiatric history: no psych history, anxiety, depression - Past Surgical History Surgical History: orthopedic, other, other, hysterectomy, vascular surgery - Social History Smoking Status: Never smoker Smokeless Tobacco Status: No Alcohol use: none Drug use: none - Family History Mother Living Status: Hx Family Cardiac Disorders: Yes Father Living Status: Hx Family Cancer: Yes (colon) Brother Living Status: Hx Family Cancer: Yes (colon) Sister Living Status: Hx Family Cancer: Yes (uterine) Internal Medicine - H&P: Meds Levothyroxine Sodium [Synthroid] 200 mcg PO DAILY 02/08/16 [History] Polyethylene Glycol 3350 [MiraLAX] 17 gm PO DAILY PRN 02/08/16 [History] amLODIPine [Norvasc] 10 mg PO DAILY 02/14/16 [History] Docusate [Colace] 100 mg PO BID PRN 30 Days 02/19/16 [Rx] Aspirin [Lo-Dose Aspirin EC] 81 mg PO DAILY 05/26/16 [History] Atorvastatin [Lipitor] 40 mg PO DAILY 05/26/16 [History] Calcium Acetate [Phos-LO] 1,334 mg PO TIDWM 05/26/16 [History] Duloxetine HCl [Cymbalta] 30 mg PO DAILY 05/26/16 [History] Ergocalciferol (VITAMIN D2) [Vitamin D2] 50,000 unit PO WE 05/26/16 [History] Ezetimibe [Zetia] 10 mg PO DAILY 05/26/16 [History] Febuxostat [Uloric] 80 mg PO DAILY 05/26/16 [History] Furosemide [Lasix] 40 mg PO DAILY 05/26/16 [History] Gabapentin [Neurontin] 300 mg PO DAILY 05/26/16 [History] Hydralazine HCl 50 mg PO Q8H 05/26/16 [History] Insulin Glargine [Lantus] 5 - 20 unit SQ DAILY PRN 05/26/16 [History] Isosorbide MONOnitrate (24 HR) [Imdur] 120 mg PO DAILY 05/26/16 [History] LORazepam [Ativan] 0.5 - 1 mg PO BID PRN 05/26/16 [History] Metoprolol XL (24 HR) Succ [Toprol XL] 50 mg PO DAILY 05/26/16 [History] Renal Vitamin [Renal Caps Softgel] 1 mg PO DAILY 05/26/16 [History] Allopurinol [Zyloprim 300 MG] 300 mg PO DAILY 05/27/16 [History] Insulin LISPRO [HumaLOG] 0 units SQ DAILY PRN MDD 110 units daily 05/27/16 [ History] Meloxicam 15 mg PO DAILY 05/27/16 [History] Nitroglycerin 0.1 mg TP DAILY 08/11/16 [History] Ondansetron ODT [Zofran ODT] 4 mg SL Q6HR PRN 08/11/16 [History] Tramadol HCl [Ultram] 50 mg PO Q6HR PRN 08/11/16 [History] Lidocaine Patch [Lidoderm 5% patch] 1 each TP DAILY #10 08/19/16 [Rx] Cinacalcet [Sensipar] 30 mg PO DAILY 01/06/17 [History] Oxycodone HCl 10 mg PO TID PRN 01/06/17 [History] 3 Allergy/AdvReac Type Severity Reaction Status Date / Time IVP DYE Allergy See Uncoded 01/01/16 09:03 Comments ivp dye Allergy See Uncoded 05/27/16 08:00 Comments All Systems PM: A 10-system review of systems was performed and is negative for pertinent findings except as documented above in the HPI. - Constitutional Constitutional: no chills, no fever(s), no night sweats - EENT Eyes: no change in vision, no discharge, no pain, no photophobia Nose, mouth and throat: no dysphagia, no nasal discharge, no neck pain, no sore throat - Cardiovascular Cardiovascular ROS IM: dyspnea, no chest pain, no diaphoresis, no lightheadedness, no palpitations, no syncope - Respiratory Respiratory: cough, no dyspnea, no wheezing, no excessive phlegm production - Gastrointestinal Gastrointestinal: no abdominal pain, no diarrhea, no hematemesis, no hematochezia, no melena, no nausea, no vomiting - Genitourinary Genitourinary: no change in urinary stream, no dysuria, no flank pain, no hematuria - Musculoskeletal Musculoskeletal ROS IM: no numbness, no tingling - Integumentary Integumentary IM: no rash, no unusual bruising - Neurological Neurological ROS: no confusion, no convulsions, no focal weakness, no numbness, no tingling, no tremor(s) - Hematologic/Lymphatic Hematologic/Lymphatic: no easy bruising - Constitutional Vitals: Temp Pulse Resp BP Pulse Ox 97.8 F 54 14 172/70 94 01/06/17 10:10 01/06/17 10:10 01/06/17 10:10 01/06/17 10:10 01/06/17 10:10 General appearance: Present: A&O X 3 Exam: Patient is groggy - Head Head exam: Present: atraumatic, normocephalic - Eye Eye exam: Present: PERRL, conjuntiva pink, sclera anicteric Pupils: Present: PERRL - Neck Neck exam general surgery: Present: supple, trachea midline. Absent: lymphadenopathy - Respiratory Respiratory exam: Present: accessory muscle use, rhonchi. Absent: rales, wheezes - Cardiovascular Cardiovascular exam: Present: RRR, +S1, +S2. Absent: diastolic murmur, gallop, rubs, systolic murmur - GI/Abdominal GI/Abdominal exam: Present: normal bowel sounds, soft, no peritoneal signs. Absent: distended, tenderness - Extremities Exam Extremities exam: Present: warm, radial pulses palpable and symmetrical. Absent : calf tenderness, cyanotic, pedal edema - Neurological Exam Neurological exam: Present: CN II-XII intact, oriented X3, no focal deficits. Absent: pronater drift, facial droop, speech deficit - Skin Skin exam: Present: dry, intact Internal Med - H&P Results - Labs CBC & Chem 7: 01/06/17 06:30 01/06/17 06:30 - EKG Data EKG shows normal: sinus rhythm Rate: bradycardia - EKG Data Prior EKG available for review: yes When compared to previous EKG: there is no significant change EKG comments: 01/06/17 18:35 Previous EKG appears to be atrial fibrillation - Diagnostic Studies Other Images Additional comments: Chest X-Ray 01/06/17 06:22 IMPRESSION: Moderate congestive failure. D/ / Moiz Washington MD / Moiz Washington MD Interpreting Provider: Moiz Washington MD Head CT 01/06/17 06:22 IMPRESSION: No acute intracranial abnormality. D/ / Atul Del Rio MD / Atul Del Rio MD Interpreting Provider: Atul Del Rio MD <Teodoro Lopez - Last Filed: 01/07/17 07:43> Date of Encounter: 01/06/17 Internal Medicine - H&P: HPI History of present illness: Ms. Moffett is a 71 year old female All Systems PM: A 10-system review of systems was performed and is negative for pertinent findings except as documented above in the HPI. - Constitutional Vitals: Temp Pulse Resp BP Pulse Ox 97.8 F 54 14 172/70 94 01/06/17 10:10 01/06/17 10:10 01/06/17 10:10 01/06/17 10:10 01/06/17 10:10 Internal Med - H&P Results - Labs CBC & Chem 7: 01/07/17 04:00 01/07/17 04:00 Labs: Cardiac Enzymes 01/06/17 Range/Units 11:18 Troponin I 0.05 H* (0-0.03) ng/mL - Attending Attestation I independently obtained history and examined this patient and my medical decision-making was reviewed with the nurse practitioner, Prisca Cano. I agree with the documented findings, disposition and treatment plan as described. My findings are summarized below: Patient presented to the hospital for evaluation of shortness of breath and lethargy. On my evaluation she is awake alert oriented 3 and responding appropriately but appears to be tired. She is complaining of shortness of breath and dry cough for the last 3 days. Denies new urinary symptoms. Heart exam reveals regular and bradycardic S1-S2 no murmurs. Lung auscultation reveals bilateral expiratory wheezes and rales. Skin exam reveals no ulcers no erythema no open wounds. Laboratory data was reviewed, EKG was personally reviewed by me shows sinus bradycardia with a chill premature contractions. LVH. First-degree AV block which was present on a previous EKG from August 2016. Narrow QRS complex. Chest x-ray was reviewed by myself and shows cardiomegaly with bilateral pleural effusions and pulmonary edema Assessment: CHF exacerbation with fluid overload on a background of end-stage renal disease on chronic hemodialysis Urinary tract infection Acute hypoxic respiratory failure secondary to CHF exacerbation Possible pneumonia given shortness of breath dry cough, auscultatory and chest x -ray findings Hyperkalemia secondary to end-stage renal disease Sinus bradycardia Hyponatremia secondary to fluid overload Uncontrolled diabetes with hyperglycemia, no evidence for DKA Plan: For CHF and ESRD we contacted the nephrology service and the patient wall undergo emergent hemodialysis due to fluid overload. For UTI and possible pneumonia we will treat her with Zosyn and vancomycin broad -spectrum IV antibiotics. Send urine culture. Send blood culture. Follow up temperature curve and WBC trend. Consider de-escalating antibiotics in 48 hours if no growth. For hyperkalemia we will treat her with calcium gluconate, IV insulin, inhaled albuterol and ultimately she will receive hemodialysis this morning. For uncontrolled diabetes we will start insulin drip. Monitor blood glucose every 30 minutes for the first 2 hours given her history of severe hypoglycemia and then monitor blood glucose every 1 hour thereafter. The high probability of emergent and significant clinical decompensation with potential impairment of organ function including the cardiovascular and respiratory systems required my full attention and presence at the bedside. I spent 50 minutes of critical care time which involved decision making of high complexity to assess, manipulate, and support vital organ system, in order to prevent further life threatening deterioration of the patient's condition. The critical care time was spent in the patient's room and/or its close proximity and involved obtaining updated history and examining the patient, reviewing current and prior EKGs, imaging studies and laboratory data, discussing the care with consultants, ordering medications and laboratory studies, and reevaluating for clinical response. The time took to perform any procedures was not included in the critical care time quoted above and is billed separately.
[2017-01-06] MEDS ORDERED: Vancomycin (wt based) 1,000 MG VIAL IVPB SCH (11:00)
[2017-01-06] MEDS ORDERED: 0.9 % Sodium Chloride 250 ML IVC PRN (11:09)
[2017-01-06 11:12] LABS: Triiodothyronine (T3) Free < 1.00 pg/mL (1.71-3.71)
--- NOTE | 2017-01-06 11:12 | Nephrology Consult Note ---
Date of Encounter: 01/06/17 Time of Encounter: 11:11 Assessment and Plan (1) End-stage renal disease on hemodialysis Current Visit: Yes Status: Chronic HD today for clearance of the hyperkalemia, and UF for edema/pulm edema/ hypervolemic hyponatremia. Discussed with the HD RNs, the floor RNs and the pt's . (2) Acute metabolic encephalopathy Current Visit: Yes Status: Acute AMS most likely from uremia, infection and hyperglycemia (3) Bradycardia with 41-50 beats per minute Current Visit: Yes Status: Acute Needs HD for clearance of the hyperkalemia. (4) Hyperkalemia Current Visit: Yes Status: Acute See above (5) Hyponatremia Current Visit: Yes Status: Acute Hyperglycemia induced hyponatremia (6) Hypoxia Current Visit: Yes Status: Acute Needs fluid removal and I have arranged for HD urgently today (7) UTI (urinary tract infection) Current Visit: Yes Status: Acute As per primary Qualifiers: Urinary tract infection type: site unspecified Hematuria presence: without hematuria Qualified Code(s): N39.0 - Urinary tract infection, site not specified History of Present Illness - Reason for Consult Consult date: 01/06/17 end stage renal disease, hyperkalemia Requesting physician: Prisca Cano - Chief Complaint Hypoxemia, Missed HD, ESRD, Hyperkalemia, Hyponatremia - History of Present Illness Ms. Moffett is a 71 year old female past medical history diabetes, ESRD on HD M/W/ F, osteomyelitis of vertebral lumbar, hypertension, obstructive sleep apnea on CPAP, COPD oxygen dependent and et al who presented with dyspnea and bradycardia. She last dialyzed on Friday. She was at the HD unit earlier on Friday but was never started on HD and the dialysis nurses sent her straight to the ER for dyspnea. She denied CP, N/V/D but was dx with a UTI. She was accompanied by her who was updated on her status and plan of care. Past Med Surg Social Fam HX - Past Medical History Medical history: diabetes, renal disease, hyperlipidemia, hypertension, thyroid disease, coronary artery disease, dialysis Psychiatric history: no psych history, anxiety, depression - Past Surgical History Surgical History: orthopedic, other, other, hysterectomy, vascular surgery - Social History Smoking Status: Never smoker Smokeless Tobacco Status: No Alcohol use: none Drug use: none - Family History Mother Living Status: Hx Family Cardiac Disorders: Yes Father Living Status: Hx Family Cancer: Yes (colon) Brother Living Status: Hx Family Cancer: Yes (colon) Sister Living Status: Hx Family Cancer: Yes (uterine) Medications and Allergies Levothyroxine Sodium [Synthroid] 200 mcg PO DAILY 02/08/16 [History] Polyethylene Glycol 3350 [MiraLAX] 17 gm PO DAILY PRN 02/08/16 [History] amLODIPine [Norvasc] 10 mg PO DAILY 02/14/16 [History] Docusate [Colace] 100 mg PO BID PRN 30 Days 02/19/16 [Rx] Aspirin [Lo-Dose Aspirin EC] 81 mg PO DAILY 05/26/16 [History] Atorvastatin [Lipitor] 40 mg PO DAILY 05/26/16 [History] Calcium Acetate [Phos-LO] 1,334 mg PO TIDWM 05/26/16 [History] Duloxetine HCl [Cymbalta] 30 mg PO DAILY 05/26/16 [History] Ergocalciferol (VITAMIN D2) [Vitamin D2] 50,000 unit PO WE 05/26/16 [History] Ezetimibe [Zetia] 10 mg PO DAILY 05/26/16 [History] Febuxostat [Uloric] 80 mg PO DAILY 05/26/16 [History] Furosemide [Lasix] 40 mg PO DAILY 05/26/16 [History] Gabapentin [Neurontin] 300 mg PO DAILY 05/26/16 [History] Hydralazine HCl 50 mg PO Q8H 05/26/16 [History] Insulin Glargine [Lantus] 5 - 20 unit SQ DAILY PRN 05/26/16 [History] Isosorbide MONOnitrate (24 HR) [Imdur] 120 mg PO DAILY 05/26/16 [History] LORazepam [Ativan] 0.5 - 1 mg PO BID PRN 05/26/16 [History] Metoprolol XL (24 HR) Succ [Toprol XL] 50 mg PO DAILY 05/26/16 [History] Renal Vitamin [Renal Caps Softgel] 1 mg PO DAILY 05/26/16 [History] Allopurinol [Zyloprim 300 MG] 300 mg PO DAILY 05/27/16 [History] Insulin LISPRO [HumaLOG] 0 units SQ DAILY PRN MDD 110 units daily 05/27/16 [ History] Meloxicam 15 mg PO DAILY 05/27/16 [History] Nitroglycerin 0.1 mg TP DAILY 08/11/16 [History] Ondansetron ODT [Zofran ODT] 4 mg SL Q6HR PRN 08/11/16 [History] Tramadol HCl [Ultram] 50 mg PO Q6HR PRN 08/11/16 [History] Lidocaine Patch [Lidoderm 5% patch] 1 each TP DAILY #10 08/19/16 [Rx] Cinacalcet [Sensipar] 30 mg PO DAILY 01/06/17 [History] Oxycodone HCl 10 mg PO TID PRN 01/06/17 [History] 3 Allergy/AdvReac Type Severity Reaction Status Date / Time IVP DYE Allergy See Uncoded 01/01/16 09:03 Comments ivp dye Allergy See Uncoded 05/27/16 08:00 Comments Review of Systems All Systems: reviewed and no additional remarkable complaints except as stated Exam - Vital Signs Vital signs: Initial Vital Signs Temp Pulse Resp BP Pulse Ox 98.6 F 49 16 166/66 92 01/06/17 06:19 01/06/17 06:19 01/06/17 06:19 01/06/17 06:19 01/06/17 06:19 Vital Signs - Last 8 Hours Temp Pulse Resp BP Pulse Ox 01/06/17 10:10 97.8 F 54 14 172/70 94 01/06/17 09:20 16 166/77 Intake and Output 01/05/17 01/06/17 01/06/17 23:59 07:59 15:59 Output Total 0 / 0 Balance 0 / 100 Output: Urine 0 / 0 Other: Blood Glucose* 567 - General Appearance General appearance: well-developed, well-nourished, appears started age, obese, moderate distress, frail EENT: ATNC, PERRL, mucous membranes moist Neck: supple Respiratory: clear Cardiology: edema (trace to 1+ pedal edema b/l), regular rhythm, normal S1, normal S2 - Dialysis Access Dialysis Vascular Access: Arteriovenous Fistula thrill: Yes bruit: Yes Gastrointestinal: normoactive bowel sounds, no tenderness, no guarding Integumentary: warm and dry Neurologic: no focal deficit, no asterixis Musculoskeletal: no erythema, no cyanosis Psychiatric: mood/affect appropriate, cooperative Results - Lab Results 01/07/17 04:00 01/07/17 04:00 Most recent lab results Calcium 9.1 mg/dL (8.6-10.8) 01/06/17 06:30 Phosphorus 6.2 mg/dL (2.3-4.7) H 01/06/17 06:30 Magnesium 2.3 mg/dL (1.6-2.6) 01/06/17 06:30 I reviewed the above data thomas and progress notes, labs, meds, vitals and I/ Os and imaging. Consult Discharge Plan - Plan Referrals: Hugo Mercedes MD [Primary Care Provider] - 01/16/17 2:00 pm ()
[2017-01-06] MEDS: Ipratropium/Albuterol Neb 3 ML IH SCH ×4 (11:33→23:13)
[2017-01-06] MEDS ORDERED: Vancomycin 1 EACH in D5% in Water 250 ML IVPB SCH (12:00)
[2017-01-06 12:02] LABS: Hepatitis B Surface Antibody 4.85 mIU/mL; Hepatitis B Surface Antigen Nonreactive (Nonreactive)
[2017-01-06] MEDS ORDERED: Piperacillin/Tazobactam 2.25 GM in D5% in Water (Mini-Bag+) 100 ML IVPB SCH (16:00)
[2017-01-06] MEDS ORDERED: Piperacillin/Tazobactam 3.375 GM in D5% in Water (Mini-Bag+) 100 ML IVPB SCH (16:00)
[2017-01-06] MEDS: Insulin LISPRO 300 UNITS/3 ML VIAL SQ SCH ×2 (18:00→21:26)
[2017-01-06] MEDS ORDERED: Vancomycin 1,000 MG in D5% in Water 250 ML IVPB ONE ×2 (19:00→21:00)
--- NOTE | 2017-01-06 20:33 | Emergency Department Note ---
Attestation Statement - Attestation Attestation: I, Zechariah Torrez MD, personally evaluated this patient and discussed their management with the resident physician. I reviewed the resident's note and agree with the documented findings, medical decision making, and plan of care. This patient was seen by the emergency department with Dr. Bob. Patient is a 71-year-old female was brought to the emergency department by ambulance from dialysis because of low oxygen saturations and decreased mental status. Here in the emergency department patient appears drowsy and sleepy but does respond to verbal stimuli and answers questions appropriately. She is chronically on oxygen at 2 L which was increased to 4 L by EMS and here in the ER on 4 L her oxygen saturation is in the lower 90s. She does admit to some increased shortness of breath especially when she is lying down. She denies chest pain. No abdominal pain. No vomiting. No fever. On examination patient is a well-developed well-nourished elderly female in no acute distress. She is drowsy but responds appropriately to verbal stimuli. No cyanosis or diaphoresis. Breath sounds are decreased but equal bilaterally. No definite rales or wheezes noted. Heart regular and bradycardic. Heart rate in the upper 40s. Abdomen soft and nontender with normal bowel sounds. Workup initiated. At shift change patient is signed out to the oncoming dayshift team Dr. Charles and Dr. De La Cruz.
[2017-01-06] MEDS: Piperacillin/Tazobactam 3.375 GM in D5% in Water (Mini-Bag+) 100 ML IVPB SCH (21:12)
[2017-01-06] MEDS: *HR* Heparin 5,000 UNIT/ML VIAL SQ SCH (21:14)
[2017-01-07 04:11] LABS: Basophils % 0.3 %; Eosinophils # 0.2 K/mcL (0.0-0.6); Eosinophils % 1.8 %; Hematocrit 31.9 % (35.3-44.9); Hemoglobin 10.8 g/dL (11.5-15.4); Immature Granulocytes % 0.4 % (0-4); Lymphocytes # 2.5 K/mcL (0.6-4.6); Lymphocytes % 21.3 %; Mean Corpuscular HGB Conc 33.9 g/dL (31.6-35.5); Mean Corpuscular Hemoglobin 32.2 pg (28.0-33.3); Mean Corpuscular Volume 95.2 fL (83.0-100.0); Mean Platelet Volume 10.9 fL (9.4-12.4); Monocytes # 1.1 K/mcL (0.0-1.3); Monocytes % 9.3 %; Neutrophils # 7.9 K/mcL (1.6-8.9); Platelet Count 226 K/mcL (140-400); Red Blood Count 3.35 M/mcL (3.82-4.97); Red Cell Distribution Width 14.1 % (11.5-14.5); Segmented Neutrophils % 66.9 %
[2017-01-07] MEDS: Ipratropium/Albuterol Neb 3 ML IH SCH ×7 (04:53→23:13)
[2017-01-07 04:59] LABS: Calcium 8.9 mg/dL (8.6-10.8); Magnesium 1.8 mg/dL (1.6-2.6); Phosphorous 4.9 mg/dL (2.3-4.7)
[2017-01-07 05:01] LABS: Potassium 4.6 mEq/L (3.5-4.5)
[2017-01-07] MEDS ORDERED: Insulin LISPRO 300 UNITS/3 ML VIAL SQ ONE (05:13)
[2017-01-07] MEDS: hydrALAZINE 25 MG TABLET PO SCH ×3 (05:17→20:39)
[2017-01-07] MEDS: *HR* Heparin 5,000 UNIT/ML VIAL SQ SCH ×2 (05:23→17:15)
[2017-01-07] MEDS: amLODIPine 5 MG TABLET PO SCH (08:05)
[2017-01-07] MEDS: Aspirin Enteric Coated 81 MG Tablet PO SCH (08:05)
[2017-01-07] MEDS: Renal Vitamin 1 MG CAPSULE PO SCH (08:05)
[2017-01-07] MEDS: Metoprolol XL (24 HR) Succ 50 MG TAB.ER.24H PO SCH (08:05)
[2017-01-07] MEDS: Furosemide 40 MG TABLET PO SCH (08:05)
[2017-01-07] MEDS: Isosorbide MONOnitrate (24 HR) 60 MG TAB.ER.24H PO SCH (08:05)
[2017-01-07] MEDS: Gabapentin 300 MG CAPSULE PO SCH (08:05)
[2017-01-07] MEDS: Nitroglycerin 0.1 MG PATCH.TD24 TP SCH (08:06)
[2017-01-07] MEDS: Insulin LISPRO 300 UNITS/3 ML VIAL SQ SCH ×4 (08:06→20:38)
[2017-01-07] MEDS: Calcium Acetate 667 MG CAPSULE PO SCH ×3 (08:06→17:15)
[2017-01-07] MEDS: Piperacillin/Tazobactam 3.375 GM in D5% in Water (Mini-Bag+) 100 ML IVPB SCH ×2 (08:09→20:39)
--- NOTE | 2017-01-07 08:47 | Nephrology Progress Note ---
Date of Encounter: 01/07/17 Time of Encounter: 08:44 - Assessment and Plan (1) End-stage renal disease on hemodialysis Current Visit: Yes Status: Chronic Plan for HD tomorrow Renal diet ordered Avoid nephrotoxins if possible (2) Bradycardia with 41-50 beats per minute Current Visit: Yes Status: Acute Heart rate 71 this am-stable per primary team (3) Hyperkalemia Current Visit: Yes Status: Resolved K+ down from 6.1 to 4.6 Renal diet ordered (4) Hypoxia Current Visit: Yes Status: Acute per primary team Subjective Principal diagnosis: ESRD on dialysis, Bradycardia, hypoxia Interval history: Patient was seen and examined. Sittting up in bed, speech clear. c/o recent cough developing. Objective - Vital Signs Vital signs: Vital Signs Temp Pulse Resp BP Pulse Ox 01/07/17 08:04 98.8 F 71 18 159/67 95 01/07/17 04:53 17 97 01/07/17 04:39 98.6 F 71 18 149/65 97 01/07/17 02:03 66 18 147/67 01/06/17 23:13 14 95 01/06/17 23:03 98.3 F 66 18 193/73 98 01/06/17 20:44 98.4 F 67 18 167/72 96 01/06/17 20:15 98.5 F 18 179/76 01/06/17 20:05 169/67 01/06/17 19:50 171/72 01/06/17 19:35 168/69 01/06/17 19:20 167/60 01/06/17 19:05 165/63 01/06/17 18:50 146/66 01/06/17 18:35 159/62 01/06/17 18:20 148/59 01/06/17 18:05 147/62 Intake and Output 01/06/17 01/07/17 01/07/17 23:59 07:59 15:59 Intake Total 0 / 0 Output Total 3600 / 3600 Balance -3600 / -3000 0 / 0 Intake: IV Fluids 0 / 0 Zosyn 3.375 GM In 0 / 0 Dextrose 5% (Minibag+) 100 ML 100 ML @ 25 mls/hr IVPB Q12H [facility] Rx#: [id number] Output: Urine 0 / 0 Total Dialysis (HD) 3600 / 3600 Output Other: Stool Size Moderate Stool Consistency loose soft Stool Characteristics Normal for Patient Stool Color Brown Weight 73.482 kg Blood Glucose* 259 451 Hemodialysis Net Fluid 3000 Removed (mL) Patient Weight 01/07/17 23:59 Weight 73.482 kg - General Appearance General appearance: Present: obese EENT: Present: ATNC, mucous membranes moist, hearing intact, vision intact Neck: Present: supple Respiratory: Present: clear Cardiology: Present: no edema, normal S1, normal S2 Dialysis Vascular Access: Arteriovenous Fistula Gastrointestinal: Present: no tenderness, no guarding Integumentary: Present: warm and dry Neurologic: Present: alert and oriented x3 Psychiatric: Present: mood/affect appropriate, cooperative - Lab 01/07/17 04:00 01/07/17 04:00 Most recent lab results Calcium 8.9 mg/dL (8.6-10.8) 01/07/17 04:00 Phosphorus 4.9 mg/dL (2.3-4.7) H 01/07/17 04:00 Magnesium 1.8 mg/dL (1.6-2.6) 01/07/17 04:00 Consult Discharge Plan - Plan Referrals: Hugo Mercedes MD [Primary Care Provider] - (web request 01/06/2017)
[2017-01-07] MEDS ORDERED: (Ezetimibe [Zetia] 10 MG) PO SCH (09:00)
[2017-01-07] MEDS ORDERED: (Febuxostat [Uloric] 80 MG) PO SCH (09:00)
[2017-01-07] MEDS: traMADol 50 MG TABLET PO PRN ×2 (12:37→20:59)
--- NOTE | 2017-01-07 18:38 | Internal Med Progress Note ---
Date of Encounter: 01/07/17 Time of Encounter: 11:00 - Assessment and plan (1) HCAP (healthcare-associated pneumonia) Current Visit: Yes Status: Suspected Assessment and plan: Continue broad-spectrum IV antibiotics. Follow-up cultures. If negative consider de-escalating antibiotics tomorrow. (2) Acute respiratory failure with hypoxia Current Visit: Yes Status: Acute Assessment and plan: Likely secondary to pneumonia and fluid overload, improved with hemodialysis. Continue fluid management but hemodialysis. (3) Encephalopathy acute Current Visit: Yes Status: Acute Assessment and plan: Improved after dialysis. Continue to monitor. Avoid excessive sedation. (4) ESRD (end stage renal disease) on dialysis Current Visit: Yes Status: Acute Assessment and plan: Appreciate and nephrology recommendations. Continue with dialysis Friday (5) Hyperkalemia Current Visit: No Status: Acute Assessment and plan: Low potassium diet. - Subjective Interval history: Patient reports that her shortness of breath has improved since yesterday, maybe mental status has improved, she still has a dry cough. She received hemodialysis yesterday which improved her symptoms. Denies urinary symptoms, no fever. - Constitutional Vitals: Temp Pulse Resp BP Pulse Ox 98.4 F 69 16 136/60 93 01/07/17 16:46 01/07/17 16:46 01/07/17 16:46 01/07/17 17:15 01/07/17 16:46 General appearance: Present: A&O X 3 - Eye Eye exam: Present: PERRL, conjuntiva pink, sclera anicteric Pupils: Present: PERRL - Neck Neck exam general surgery: Present: supple, trachea midline. Absent: lymphadenopathy - Respiratory Respiratory exam: Present: CTAB. Absent: accessory muscle use, rales, rhonchi, wheezes - Cardiovascular Cardiovascular exam: Present: RRR, +S1, +S2. Absent: diastolic murmur, gallop, rubs, systolic murmur - GI/Abdominal GI/Abdominal exam: Present: normal bowel sounds, soft, no peritoneal signs. Absent: distended, tenderness - Skin Skin exam: Present: dry, intact Internal Medicine: Result - Labs CBC & Chem 7: 01/07/17 04:00 01/07/17 04:00 Labs: Short CBC 01/07/17 Range/Units 04:00 WBC 11.8 H (4.3-11.1) K/mcL Hgb 10.8 L (11.5-15.4) g/dL Hct 31.9 L (35.3-44.9) % Plt Count 226 (140-400) K/mcL Neutrophils # 7.9 (1.6-8.9) K/mcL BMP 01/07/17 04:00 Sodium 133 L D Potassium 4.6 H D Chloride 91 L Carbon Dioxide 21 BUN 42 H D Creatinine 5.09 H Glucose 556 H* Calcium 8.9 Cardiac Enzymes 01/07/17 Range/Units 04:00 Troponin I 0.05 H* (0-0.03) ng/mL - ABG Interpretation ABG results: PT/INR, D-dimer PT 9.9 Seconds (9.4-12.1) 01/06/17 06:30 - Impressions Impressions Chest X-Ray 01/07/17 09:00 IMPRESSION: Stable cardiomegaly. Mild pulmonary vascular congestion. Airspace opacities at the bilateral infrahilar regions, may be related to atelectasis versus pneumonia. Trace bilateral pleural effusions. D/ / Casa Herbert MD / Casa Herbert MD Interpreting Provider: Casa Herbert MD Consult Discharge Plan - Plan Referrals: Hugo Mercedes MD [Primary Care Provider] - 01/16/17 2:00 pm ()
[2017-01-08 03:40] LABS: Basophils % 0.4 %; Eosinophils # 0.3 K/mcL (0.0-0.6); Eosinophils % 3.1 %; Hematocrit 29.7 % (35.3-44.9); Immature Granulocytes % 0.4 % (0-4); Lymphocytes # 2.3 K/mcL (0.6-4.6); Lymphocytes % 24.5 %; Mean Corpuscular HGB Conc 33.7 g/dL (31.6-35.5); Mean Corpuscular Hemoglobin 32.1 pg (28.0-33.3); Mean Corpuscular Volume 95.2 fL (83.0-100.0); Mean Platelet Volume 10.7 fL (9.4-12.4); Monocytes # 1.2 K/mcL (0.0-1.3); Monocytes % 12.9 %; Neutrophils # 5.4 K/mcL (1.6-8.9); Platelet Count 222 K/mcL (140-400); Red Blood Count 3.12 M/mcL (3.82-4.97); Red Cell Distribution Width 14.7 % (11.5-14.5); Segmented Neutrophils % 58.7 %
[2017-01-08] MEDS: Ipratropium/Albuterol Neb 3 ML IH SCH ×6 (03:43→23:25)
[2017-01-08 03:53] LABS: Calcium 8.7 mg/dL (8.6-10.8); Potassium 4.5 mEq/L (3.5-4.5)
[2017-01-08] MEDS: hydrALAZINE 25 MG TABLET PO SCH ×3 (04:54→22:08)
[2017-01-08] MEDS: *HR* Heparin 5,000 UNIT/ML VIAL SQ SCH ×2 (04:54→16:58)
[2017-01-08] MEDS: Aspirin Enteric Coated 81 MG Tablet PO SCH (08:12)
[2017-01-08] MEDS: Gabapentin 300 MG CAPSULE PO SCH (08:12)
[2017-01-08] MEDS: Renal Vitamin 1 MG CAPSULE PO SCH (08:12)
[2017-01-08] MEDS: Nitroglycerin 0.1 MG PATCH.TD24 TP SCH (08:13)
[2017-01-08] MEDS: Calcium Acetate 667 MG CAPSULE PO SCH ×3 (08:13→16:58)
[2017-01-08] MEDS: Insulin LISPRO 300 UNITS/3 ML VIAL SQ SCH ×4 (08:15→22:03)
[2017-01-08] MEDS ORDERED: 0.9 % Sodium Chloride 250 ML IVC PRN (08:17)
[2017-01-08] MEDS: Furosemide 40 MG TABLET PO SCH (08:21)
--- NOTE | 2017-01-08 09:54 | Nephrology Progress Note ---
Date of Encounter: 01/08/17 Time of Encounter: 09:54 - Assessment and Plan (1) End-stage renal disease on hemodialysis Current Visit: Yes Status: Chronic HD today for clearance and UF (2) Acute metabolic encephalopathy Current Visit: Yes Status: Acute (3) Bradycardia with 41-50 beats per minute Current Visit: Yes Status: Acute (4) Hyperkalemia Current Visit: Yes Status: Acute (5) Hyponatremia Current Visit: Yes Status: Acute (6) Hypoxia Current Visit: Yes Status: Acute (7) UTI (urinary tract infection) Current Visit: Yes Status: Acute Qualifiers: Urinary tract infection type: site unspecified Hematuria presence: without hematuria Qualified Code(s): N39.0 - Urinary tract infection, site not specified Subjective Principal diagnosis: ESRD on dialysis, Bradycardia, hypoxia Interval history: Pt was s/e and did not affirm N/V/D. Due for HD today. Objective - Vital Signs Vital signs: Vital Signs Temp Pulse Resp BP Pulse Ox 01/08/17 08:10 94 01/08/17 07:54 98.1 F 96 19 137/82 94 01/08/17 04:06 97.2 F L 63 16 154/58 97 01/08/17 03:43 16 95 01/07/17 23:52 97.9 F 63 20 145/64 96 01/07/17 23:13 16 98 01/07/17 20:05 98.0 F 66 16 128/50 94 01/07/17 19:43 16 94 01/07/17 17:15 136/60 01/07/17 16:46 98.4 F 69 16 95/56 93 01/07/17 15:43 14 95 01/07/17 11:40 98.7 F 01/07/17 11:11 98.4 F 63 14 105/54 93 Intake and Output 01/07/17 01/08/17 01/08/17 23:59 07:59 15:59 Intake Total 360 / 360 240 / 240 Output Total 75 / 75 0 / 0 Balance 285 / 285 240 / 240 Intake: Oral 360 / 360 240 / 240 Output: Urine 0 / 0 Catheter 75 / 75 Other: Meal Dinner Breakfast Percent of Meal Consumed 100% 25% Weight 72.6 kg Blood Glucose* 290 513 600 - General Appearance Exam: General appearance: Present: obese EENT: Present: ATNC, mucous membranes moist, hearing intact, vision intact Neck: Present: supple Respiratory: Present: clear Cardiology: Present: no edema, normal S1, normal S2 Dialysis Vascular Access: Arteriovenous Fistula Gastrointestinal: Present: no tenderness, no guarding Integumentary: Present: warm and dry Neurologic: Present: alert and oriented x3 Psychiatric: Present: mood/affect appropriate, cooperative - Lab 01/08/17 03:23 01/08/17 03:23 Most recent lab results Calcium 8.7 mg/dL (8.6-10.8) 01/08/17 03:23 Phosphorus 4.9 mg/dL (2.3-4.7) H 01/07/17 04:00 Magnesium 1.8 mg/dL (1.6-2.6) 01/07/17 04:00 Consult Discharge Plan - Plan Referrals: Hugo Mercedes MD [Primary Care Provider] - 01/16/17 2:00 pm ()
--- NOTE | 2017-01-08 12:33 | Electrocardiograph Report ---
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
[2017-01-08] MEDS ORDERED: Aminoglycoside Consult 1 EACH MC ONE (14:28)
[2017-01-08] MEDS: Amoxicillin/Clavulanate 500 MG TABLET PO SCH (15:02)
[2017-01-08] MEDS: Isosorbide MONOnitrate (24 HR) 60 MG TAB.ER.24H PO SCH (15:05)
[2017-01-08] MEDS: amLODIPine 5 MG TABLET PO SCH (15:06)
[2017-01-08] MEDS: Metoprolol XL (24 HR) Succ 50 MG TAB.ER.24H PO SCH (15:06)
--- NOTE | 2017-01-08 18:15 | Internal Med Progress Note ---
Date of Encounter: 01/08/17 Time of Encounter: 10:00 - Assessment and plan (1) HCAP (healthcare-associated pneumonia) Current Visit: Yes Status: Suspected Assessment and plan: Blood culture remained negative, shortness of breath has improved improved, I will de-escalate antibiotics. (2) Acute respiratory failure with hypoxia Current Visit: Yes Status: Acute Assessment and plan: Likely secondary to pneumonia and fluid overload, improved with hemodialysis. Continue fluid management but hemodialysis. (3) Encephalopathy acute Current Visit: Yes Status: Acute Assessment and plan: Improved after dialysis. Continue to monitor. Avoid excessive sedation. (4) ESRD (end stage renal disease) on dialysis Current Visit: Yes Status: Acute Assessment and plan: Appreciate and nephrology recommendations. Continue with dialysis Friday (5) Hyperkalemia Current Visit: No Status: Acute Assessment and plan: Low potassium diet. (6) UTI (urinary tract infection) Current Visit: Yes Status: Acute Assessment and plan: Urine culture is negative. I will de-escalate antibiotics. Discontinue Aguilar catheter. Qualifiers: Urinary tract infection type: site unspecified Hematuria presence: without hematuria Qualified Code(s): N39.0 - Urinary tract infection, site not specified - Subjective Interval history: Patient reports mild to moderate shortness of breath at rest, worse with exertion, persistent dry cough with no fever or chest pain. Her symptoms have overall improved over the last 1 day - Constitutional Vitals: Temp Pulse Resp BP Pulse Ox 98.1 F 77 17 149/65 97 01/08/17 16:27 01/08/17 16:27 01/08/17 16:27 01/08/17 16:27 01/08/17 16:27 General appearance: Present: A&O X 3 - Respiratory Respiratory exam: Present: rales. Absent: accessory muscle use, rhonchi, wheezes - Cardiovascular Cardiovascular exam: Present: RRR, +S1, +S2. Absent: diastolic murmur, gallop, rubs, systolic murmur - GI/Abdominal GI/Abdominal exam: Present: normal bowel sounds, soft, no peritoneal signs. Absent: distended, tenderness - Neurological Exam Neurological exam: Present: CN II-XII intact, oriented X3, no focal deficits. Absent: pronater drift, facial droop, speech deficit - Skin Skin exam: Present: dry, intact Internal Medicine: Result - Labs CBC & Chem 7: 01/08/17 03:23 01/08/17 03:23 Labs: Short CBC 01/08/17 Range/Units 03:23 WBC 9.2 (4.3-11.1) K/mcL Hgb 10.0 L (11.5-15.4) g/dL Hct 29.7 L (35.3-44.9) % Plt Count 222 (140-400) K/mcL Neutrophils # 5.4 (1.6-8.9) K/mcL BMP 01/08/17 03:23 Sodium 134 L Potassium 4.5 Chloride 94 L Carbon Dioxide 25 BUN 58 H D Creatinine 6.53 H Glucose 360 H Calcium 8.7 - ABG Interpretation ABG results: PT/INR, D-dimer PT 9.9 Seconds (9.4-12.1) 01/06/17 06:30 Consult Discharge Plan - Plan Referrals: Hugo Mercedes MD [Primary Care Provider] - 01/16/17 2:00 pm ()
[2017-01-08] MEDS: traMADol 50 MG TABLET PO PRN (22:08)
[2017-01-09] MEDS: Ipratropium/Albuterol Neb 3 ML IH SCH ×6 (03:47→23:21)
[2017-01-09] MEDS: hydrALAZINE 25 MG TABLET PO SCH ×3 (05:32→19:57)
[2017-01-09] MEDS: *HR* Heparin 5,000 UNIT/ML VIAL SQ SCH ×2 (05:32→18:44)
[2017-01-09 05:49] LABS: Calcium 8.9 mg/dL (8.6-10.8); Potassium 5.2 mEq/L (3.5-4.5)
[2017-01-09 06:03] LABS: Basophils # 0.1 K/mcL (0.0-0.2); Basophils % 0.5 %; Eosinophils # 0.1 K/mcL (0.0-0.6); Hematocrit 33.6 % (35.3-44.9); Hemoglobin 10.6 g/dL (11.5-15.4); Immature Granulocytes % 0.7 % (0-4); Immature Platelets 7.4 % (1.1-6.1); Lymphocytes # 2.3 K/mcL (0.6-4.6); Lymphocytes % 18.5 %; Mean Corpuscular HGB Conc 31.5 g/dL (31.6-35.5); Mean Corpuscular Hemoglobin 32.4 pg (28.0-33.3); Mean Corpuscular Volume 102.8 fL (83.0-100.0); Monocytes # 0.9 K/mcL (0.0-1.3); Monocytes % 7.3 %; Neutrophils # 8.8 K/mcL (1.6-8.9); Platelet Count 162 K/mcL (140-400); Red Blood Count 3.27 M/mcL (3.82-4.97); Red Cell Distribution Width 15.4 % (11.5-14.5)
[2017-01-09 07:01] LABS: VBG HCO3 12.7 mEq/L (21-27); VBG PH 7.22 pH Units (7.32-7.42)
[2017-01-09] MEDS ORDERED: Ondansetron 4 MG/2 ML VIAL IVP PRN (08:12)
[2017-01-09] MEDS ORDERED: Insulin Human Regular 5 UNIT in 0.9 % Sodium Chloride 10 ML IV ONE (08:16)
[2017-01-09] MEDS: Insulin Human Regular 100 UNIT in 0.9 % Sodium Chloride 100 ML IVC SCH ×2 (08:33→12:41)
--- NOTE | 2017-01-09 08:45 | Nephrology Progress Note ---
Date of Encounter: 01/09/17 Time of Encounter: 08:43 - Assessment and Plan (1) End-stage renal disease on hemodialysis Current Visit: Yes Status: Chronic Plan for HD tomorrow Continue renal diet when diet resumed Avoid nephrotoxins if possible (2) Bradycardia with 41-50 beats per minute Current Visit: Yes Status: Acute Heart rate 70 this am-stable per primary team (3) Hyperkalemia Current Visit: Yes Status: Acute K+ 5.2 Glucose 766-difficulty in regulating blood sugar (4) Hypoxia Current Visit: Yes Status: Acute per primary team Subjective Principal diagnosis: ESRD on dialysis, Bradycardia, hypoxia Interval history: Patient was seen and examined. Lying in bed moaning, asking for pain meds. Speech slurred; patient does not recognize me even though she sees me weekly at [facility]. Objective - Vital Signs Vital signs: Vital Signs Temp Pulse Resp BP Pulse Ox 01/09/17 07:26 97.6 F 70 16 87/49 97 01/09/17 04:35 98 F 75 16 122/54 96 01/09/17 03:48 16 96 01/09/17 00:21 98.2 F 75 16 125/58 98 01/08/17 23:25 16 95 01/08/17 20:21 98.5 F 68 16 113/56 94 01/08/17 20:03 16 95 01/08/17 16:27 98.1 F 77 17 149/65 97 01/08/17 15:50 16 98 01/08/17 13:50 97.9 F 18 127/56 01/08/17 13:40 113/82 01/08/17 13:25 117/83 01/08/17 13:10 105/74 01/08/17 12:55 124/66 01/08/17 12:40 145/59 01/08/17 12:25 125/52 01/08/17 12:10 110/60 01/08/17 11:55 109/58 01/08/17 11:40 114/60 01/08/17 11:25 110/57 01/08/17 11:10 115/58 01/08/17 10:55 111/61 01/08/17 10:40 119/53 01/08/17 10:25 130/55 01/08/17 10:10 97.3 F L 18 149/73 Intake and Output 01/08/17 01/09/17 01/09/17 23:59 07:59 15:59 Intake Total 120 / 120 0 / 0 Output Total 25 / 25 0 / 0 Balance 95 / 95 0 / 0 Intake: Oral 120 / 120 0 / 0 Output: Urine 25 / 25 0 / 0 Other: Meal Dinner Percent of Meal Consumed 95% Stool Size Small Large Stool Consistency liquid soft Stool Color Brown Brown # Bowel Movements 1 1 Blood Glucose* 152 - General Appearance General appearance: Present: obese EENT: Present: ATNC, mucous membranes moist, hearing intact, vision intact Neck: Present: supple Respiratory: Present: clear Cardiology: Present: no edema, normal S1, normal S2 Dialysis Vascular Access: Arteriovenous Fistula Gastrointestinal: Present: no tenderness, no guarding Integumentary: Present: warm and dry Neurologic: Present: confused - Lab 01/09/17 05:55 01/09/17 05:20 Most recent lab results Calcium 8.9 mg/dL (8.6-10.8) 01/09/17 05:20 Phosphorus 4.9 mg/dL (2.3-4.7) H 01/07/17 04:00 Magnesium 1.8 mg/dL (1.6-2.6) 01/07/17 04:00 Consult Discharge Plan - Plan Referrals: Hugo Mercedes MD [Primary Care Provider] - 01/16/17 2:00 pm ()
[2017-01-09] MEDS: traMADol 50 MG TABLET PO PRN ×2 (08:53→14:04)
[2017-01-09] MEDS: Gabapentin 300 MG CAPSULE PO SCH (08:53)
[2017-01-09] MEDS: Isosorbide MONOnitrate (24 HR) 60 MG TAB.ER.24H PO SCH (08:54)
[2017-01-09] MEDS: Calcium Acetate 667 MG CAPSULE PO SCH ×3 (08:54→16:23)
[2017-01-09] MEDS: Renal Vitamin 1 MG CAPSULE PO SCH (08:54)
[2017-01-09] MEDS: Furosemide 40 MG TABLET PO SCH (08:54)
[2017-01-09] MEDS: Metoprolol XL (24 HR) Succ 50 MG TAB.ER.24H PO SCH (08:54)
[2017-01-09] MEDS: Aspirin Enteric Coated 81 MG Tablet PO SCH (08:54)
[2017-01-09] MEDS: amLODIPine 5 MG TABLET PO SCH (08:54)
[2017-01-09] MEDS: Insulin LISPRO 300 UNITS/3 ML VIAL SQ SCH ×4 (09:00→19:57)
[2017-01-09] MEDS: Nitroglycerin 0.1 MG PATCH.TD24 TP SCH (09:03)
[2017-01-09] MEDS: Amoxicillin/Clavulanate 500 MG TABLET PO SCH (12:05)
[2017-01-09 14:40] LABS: VBG HCO3 21.4 mEq/L (21-27); VBG PH 7.37 pH Units (7.32-7.42)
[2017-01-09 14:52] LABS: Calcium 8.7 mg/dL (8.6-10.8)
[2017-01-09 14:55] LABS: Potassium 3.9 mEq/L (3.5-4.5)
[2017-01-09] MEDS ORDERED: 0.9 % Sodium Chloride 500 ML IVC PRN (15:08)
[2017-01-09] MEDS: *HR* Dextrose 50 % in Water (Syg) 50 ML SYRINGE IVP PRN ×2 (17:09→18:18)
--- NOTE | 2017-01-09 17:10 | Electrocardiograph Report ---
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
--- NOTE | 2017-01-09 17:52 | Internal Med Progress Note ---
Date of Encounter: 01/09/17 Time of Encounter: 17:50 - Assessment and plan (1) HCAP (healthcare-associated pneumonia) Current Visit: Yes Status: Suspected Assessment and plan: Blood culture remained negative, shortness of breath has improved improved, will continue with Augmentin. Monitor white blood cell count and temperature curve. (2) Acute respiratory failure with hypoxia Current Visit: Yes Status: Acute Assessment and plan: Likely secondary to pneumonia and fluid overload, improved with hemodialysis. Continue fluid management but hemodialysis. (3) Encephalopathy acute Current Visit: Yes Status: Acute Assessment and plan: Improved after dialysis. Continue to monitor. Avoid excessive sedation. (4) ESRD (end stage renal disease) on dialysis Current Visit: Yes Status: Acute Assessment and plan: Appreciate and nephrology recommendations. Continue with dialysis Friday (5) Hyperkalemia Current Visit: No Status: Acute Assessment and plan: Resolved with hemodialysis. (6) UTI (urinary tract infection) Current Visit: Yes Status: Acute Assessment and plan: Urine culture is negative. I will de-escalate antibiotics. Discontinue Aguilar catheter. Qualifiers: Urinary tract infection type: site unspecified Hematuria presence: without hematuria Qualified Code(s): N39.0 - Urinary tract infection, site not specified (7) DKA (diabetic ketoacidoses) Current Visit: No Status: Acute Assessment and plan: This is a new occurrence today. There is no sign of new infection dehydration or any other triggering factor. The only new medication liothyronine for hypothyroidism which typically does not worsen diabetes. I will hold this medication as a precaution and will start therapy for DKA with insulin drip, IV fluids and every hour glucose checks. Patient's glucose remained elevated and was quite resistant to insulin drip. Subsequently the patient's glucose dropped in the mid 200 then 137 and then the patient became lethargic and her blood glucose was 47. At this point she was given 25 g of IV D50. Once blood glucose stabilizes I will recheck BMP and his anion gap has closed I will start Lantus and give her a diet. Lactic acid was elevated likely secondary to dehydration due to DKA. We will give a small bolus of IV fluid 500 mL. The high probability of emergent and significant clinical decompensation with potential impairment of organ function including cardiovascular and nervous systems required my full attention and presence at the bedside. I spent 50 minutes of critical care time which involved decision making of high complexity to assess, manipulate, and support vital organ system, in order to prevent further life threatening deterioration of the patient's condition. The critical care time was spent in the patient's room and/or its close proximity and involved obtaining updated history and examining the patient, reviewing laboratory data, ordering medications and laboratory studies, and reevaluating for clinical response. The time took to perform any procedures was not included in the critical care time quoted above. Qualifiers: Diabetes mellitus type: type 1 Diabetes mellitus complication detail: without coma Qualified Code(s): E10.10 - Type 1 diabetes mellitus with ketoacidosis without coma (8) Hypothyroidism Current Visit: Yes Status: Acute Assessment and plan: T3 was low and she was started on liothyronine. Qualifiers: Hypothyroidism type: unspecified Qualified Code(s): E03.9 - Hypothyroidism , unspecified - Subjective Interval history: Patient went into DKA this morning, reported severe nausea with no vomiting now dry heaving, marginally improved with Zofran, some associated diffuse abdominal pain which all started early this morning. She denies fevers chills, she continues to have cough no chest pain, shortness of breath is at baseline. - Constitutional Vitals: Temp Pulse Resp BP Pulse Ox 98.1 F 59 15 107/37 95 01/09/17 17:04 01/09/17 17:04 01/09/17 17:04 01/09/17 17:04 01/09/17 17:04 General appearance: Present: A&O X 3 - Respiratory Respiratory exam: Present: CTAB. Absent: accessory muscle use, rales, rhonchi, wheezes - Cardiovascular Cardiovascular exam: Present: RRR, +S1, +S2. Absent: diastolic murmur, gallop, rubs, systolic murmur - GI/Abdominal GI/Abdominal exam: Present: normal bowel sounds, soft, no peritoneal signs. Absent: distended, tenderness - Extremities Exam Extremities exam: Present: warm, radial pulses palpable and symmetrical. Absent : calf tenderness, cyanotic, pedal edema - Neurological Exam Neurological exam: Present: CN II-XII intact, oriented X3, no focal deficits. Absent: pronater drift, facial droop, speech deficit - Skin Skin exam: Present: dry, intact Internal Medicine: Result - Labs CBC & Chem 7: 01/09/17 05:55 01/09/17 14:30 Labs: Short CBC 01/09/17 Range/Units 05:55 WBC 12.2 H (4.3-11.1) K/mcL Hgb 10.6 L (11.5-15.4) g/dL Hct 33.6 L (35.3-44.9) % Plt Count 162 (140-400) K/mcL Neutrophils # 8.8 (1.6-8.9) K/mcL BMP 01/09/17 01/09/17 01/09/17 05:20 10:20 12:05 Sodium 131 L Potassium 5.2 H Chloride 91 L Carbon Dioxide 13 L BUN 42 H D Creatinine 5.57 H Glucose 766 H* 862 H* 752 H* Calcium 8.9 01/09/17 14:30 Sodium 133 L Potassium 3.9 D Chloride 94 L Carbon Dioxide 18 L BUN 52 H Creatinine 6.03 H Glucose 394 H Calcium 8.7 - ABG Interpretation ABG results: PT/INR, D-dimer PT 9.9 Seconds (9.4-12.1) 01/06/17 06:30 Consult Discharge Plan - Plan Referrals: Hugo Mercedes MD [Primary Care Provider] - 01/16/17 2:00 pm ()
[2017-01-09] MEDS ORDERED: D10% in Water 500 ML IVC ONE (18:22)
[2017-01-09] MEDS ORDERED: *HR* Dextrose 50 % in Water (Syg) 50 ML SYRINGE ONE (18:22)
[2017-01-09] MEDS ORDERED: *HR* Dextrose 50 % in Water (Syg) 50 ML SYRINGE IVP ONE (18:24)
[2017-01-09] MEDS ORDERED: D10% in Water 500 ML IV SOLUTION IVC SCH (18:30)
[2017-01-09] MEDS ORDERED: D5% in 0.45% NACL 1,000 ML IVC SCH (20:15)
[2017-01-09 21:15] LABS: Capillary Blood PH 7.43 pH Units (7.32-7.45)
[2017-01-09 21:30] LABS: Calcium 8.3 mg/dL (8.6-10.8)
[2017-01-09 21:36] LABS: Potassium 5.8 mEq/L (3.5-4.5)
[2017-01-09] MEDS ORDERED: Insulin Human Regular 100 UNIT in 0.9 % Sodium Chloride 100 ML IVC SCH (21:45)
[2017-01-10 00:57] LABS: Basophils % 0.3 %; Eosinophils # 0.1 K/mcL (0.0-0.6); Hematocrit 30.4 % (35.3-44.9); Hemoglobin 10.3 g/dL (11.5-15.4); Immature Granulocytes % 0.7 % (0-4); Lymphocytes # 3.4 K/mcL (0.6-4.6); Lymphocytes % 26.6 %; Mean Corpuscular HGB Conc 33.9 g/dL (31.6-35.5); Mean Corpuscular Hemoglobin 32.6 pg (28.0-33.3); Mean Platelet Volume 10.9 fL (9.4-12.4); Monocytes # 1.1 K/mcL (0.0-1.3); Monocytes % 8.4 %; Neutrophils # 7.9 K/mcL (1.6-8.9); Platelet Count 232 K/mcL (140-400); Red Blood Count 3.16 M/mcL (3.82-4.97); Red Cell Distribution Width 14.7 % (11.5-14.5)
[2017-01-10 00:58] LABS: Mean Corpuscular Volume 96.2 fL (83.0-100.0)
[2017-01-10 01:09] LABS: Calcium 8.5 mg/dL (8.6-10.8); Potassium 4.8 mEq/L (3.5-4.5)
[2017-01-10] MEDS ORDERED: Insulin LISPRO 300 UNITS/3 ML VIAL SQ ONE (03:45)
[2017-01-10] MEDS ORDERED: Dextrose Gel 15 GM PO PRN ×2 (03:46)
[2017-01-10] MEDS ORDERED: D5% in Water 1,000 ML IVC PRN (03:46)
[2017-01-10] MEDS ORDERED: *HR* Dextrose 50 % in Water (Syg) 50 ML SYRINGE IVP PRN (03:46)
[2017-01-10] MEDS: Ipratropium/Albuterol Neb 3 ML IH SCH ×6 (04:00→23:00)
[2017-01-10] MEDS: hydrALAZINE 25 MG TABLET PO SCH ×3 (04:09→20:00)
[2017-01-10] MEDS: *HR* Heparin 5,000 UNIT/ML VIAL SQ SCH ×2 (05:36→16:33)
[2017-01-10] MEDS: Insulin LISPRO 300 UNITS/3 ML VIAL SQ SCH ×3 (05:36→11:43)
[2017-01-10] MEDS ORDERED: 0.9 % Sodium Chloride 250 ML IVC PRN (06:54)
[2017-01-10] MEDS: Gabapentin 300 MG CAPSULE PO SCH (07:00)
[2017-01-10] MEDS: Calcium Acetate 667 MG CAPSULE PO SCH ×3 (07:01→16:33)
[2017-01-10] MEDS: Aspirin Enteric Coated 81 MG Tablet PO SCH (07:01)
[2017-01-10] MEDS: Renal Vitamin 1 MG CAPSULE PO SCH (07:01)
[2017-01-10] MEDS ORDERED: 0.9 % Sodium Chloride 2,000 ML ONE (07:40)
[2017-01-10] MEDS ORDERED: Insulin LISPRO 300 UNITS/3 ML VIAL SQ SCH (08:00)
--- NOTE | 2017-01-10 08:51 | Nephrology Progress Note ---
Date of Encounter: 01/10/17 Time of Encounter: 08:15 - Assessment and Plan (1) End-stage renal disease on hemodialysis Current Visit: Yes Status: Chronic HD today for clearance and UF Next HD is planned for Friday. Will be available this . (2) Acute metabolic encephalopathy Current Visit: Yes Status: Acute Resolving (3) Hyperkalemia Current Visit: Yes Status: Acute HD today (4) Hyponatremia Current Visit: Yes Status: Acute Improved with correction of her severe hyperglycemia yesterday. (5) UTI (urinary tract infection) Current Visit: Yes Status: Acute As per primary . Qualifiers: Urinary tract infection type: site unspecified Hematuria presence: without hematuria Qualified Code(s): N39.0 - Urinary tract infection, site not specified Subjective Principal diagnosis: ESRD on dialysis, Bradycardia, hypoxia Interval history: Pt was s/e while on HD. She reported feeling fatigued though better than yesterday. She was made NPO and said she did not have breakfast yet. She affirmed some mild Nause today that started before dialysis was initiated. She did not affirm CP or cramping while on HD. Objective - Vital Signs Vital signs: Vital Signs Temp Pulse Resp BP Pulse Ox 01/10/17 08:42 97.1 F L 54 17 93/44 98 01/10/17 04:01 18 96 01/10/17 03:10 97.8 F 53 19 100/37 98 01/09/17 23:16 97.6 F 52 18 96/45 100 01/09/17 19:58 48 19 103/47 98 01/09/17 17:04 98.1 F 59 15 107/37 95 01/09/17 11:01 97.7 F 71 15 90/44 98 Intake and Output 01/09/17 01/10/17 01/10/17 23:59 07:59 15:59 Intake Total 4.1 / 4.1 240 / 240 0 / 0 Output Total 0 / 0 Balance 4.1 / 4.1 240 / 240 0 / 0 Intake: IV Fluids 4.1 / 4.1 0 / 0 HumuLIN R 100 UNIT In 0. 4.1 / 4.1 0 / 0 9 % Sodium Chloride 100 ML @ 6 UNIT/HR 6.06 mls/ hr IVC CONT CINDY Rx#: [id number] Oral 240 / 240 0 / 0 Output: Urine 0 / 0 Other: Stool Size Smear Smear Stool Consistency loose liquid Stool Characteristics Normal for Patient Stool Color Brown Brown # Bowel Movements 1 1 # Bowel Movement Diapers 1 Weight 72.9 kg 72.9 kg Blood Glucose* 188 139 70 Patient Weight 01/10/17 23:59 Weight 72.9 kg - General Appearance General appearance: Present: well-developed, well-nourished, appears started age , chronically ill, fatigue, frail EENT: Present: ATNC, PERRL, mucous membranes moist Neck: Present: supple Respiratory: Present: clear Cardiology: Present: no edema, normal S1, normal S2 Dialysis Vascular Access: Arteriovenous Fistula (LUE AVF) thrill: Yes bruit: Yes Gastrointestinal: Present: normoactive bowel sounds, no tenderness, no guarding Integumentary: Present: no rash, warm and dry Neurologic: Present: no focal deficit, no asterixis, alert and oriented x3 Musculoskeletal: Present: no deformities, no erythema, no cyanosis Psychiatric: Present: mood/affect appropriate, cooperative - Lab 01/10/17 00:46 01/10/17 00:46 Most recent lab results Calcium 8.5 mg/dL (8.6-10.8) L 01/10/17 00:46 Phosphorus 4.9 mg/dL (2.3-4.7) H 01/07/17 04:00 Magnesium 1.9 mg/dL (1.6-2.6) 01/09/17 14:30 Consult Discharge Plan - Plan Referrals: Hugo Mercedes MD [Primary Care Provider] - 01/16/17 2:00 pm ()
[2017-01-10] MEDS: Furosemide 40 MG TABLET PO SCH (13:08)
[2017-01-10] MEDS: amLODIPine 5 MG TABLET PO SCH (13:08)
[2017-01-10] MEDS: Nitroglycerin 0.1 MG PATCH.TD24 TP SCH (13:08)
[2017-01-10] MEDS: Isosorbide MONOnitrate (24 HR) 60 MG TAB.ER.24H PO SCH (13:19)
[2017-01-10] MEDS: Amoxicillin/Clavulanate 500 MG TABLET PO SCH (13:19)
[2017-01-10] MEDS: Metoprolol XL (24 HR) Succ 50 MG TAB.ER.24H PO SCH (13:19)
[2017-01-10] MEDS: Insulin DETEMIR 100 UNIT/ML X5UNITS SQ SCH ×2 (13:54→19:59)
[2017-01-10] MEDS: (INSULIN PUMP) SQ SCH (14:33)
--- NOTE | 2017-01-10 17:54 | Internal Med Progress Note ---
Date of Encounter: 01/10/17 Time of Encounter: 09:00 - Assessment and plan (1) HCAP (healthcare-associated pneumonia) Current Visit: Yes Status: Suspected Assessment and plan: Blood culture remained negative, shortness of breath has improved improved, will continue with Augmentin. Monitor white blood cell count and temperature curve. (2) Acute respiratory failure with hypoxia Current Visit: Yes Status: Acute Assessment and plan: Likely secondary to pneumonia and fluid overload, improved with hemodialysis. Continue fluid management but hemodialysis. (3) Encephalopathy acute Current Visit: Yes Status: Acute Assessment and plan: Improved after dialysis. Continue to monitor. Avoid excessive sedation. (4) ESRD (end stage renal disease) on dialysis Current Visit: Yes Status: Acute Assessment and plan: Appreciate and nephrology recommendations. Continue with dialysis Friday (5) Hyperkalemia Current Visit: No Status: Acute (6) UTI (urinary tract infection) Current Visit: Yes Status: Acute Assessment and plan: Urine culture is negative. I will de-escalate antibiotics. Discontinue Aguilar catheter. Qualifiers: Urinary tract infection type: site unspecified Hematuria presence: without hematuria Qualified Code(s): N39.0 - Urinary tract infection, site not specified (7) DKA (diabetic ketoacidoses) Current Visit: No Status: Acute Assessment and plan: She was in DKA rested yesterday and was treated with insulin drip. DKA has resolved. DKA has resolved. I will start her insulin pump and start low dose low acting insulin. 01/09/2017: The only new medication liothyronine for hypothyroidism which typically does not worsen diabetes. I will hold this medication as a precaution and will start therapy for DKA with insulin drip, IV fluids and every hour glucose checks. Patient's glucose remained elevated and was quite resistant to insulin drip. Subsequently the patient's glucose dropped in the mid 200 then 137 and then the patient became lethargic and her blood glucose was 47. At this point she was given 25 g of IV D50. Qualifiers: Diabetes mellitus type: type 1 Diabetes mellitus complication detail: without coma Qualified Code(s): E10.10 - Type 1 diabetes mellitus with ketoacidosis without coma (8) Hypothyroidism Current Visit: Yes Status: Acute Assessment and plan: T3 was low and she was started on liothyronine. I will hold off on this due to concern for possibly precipitating her DKA. We will monitor clinically. Qualifiers: Hypothyroidism type: unspecified Qualified Code(s): E03.9 - Hypothyroidism , unspecified - Subjective Interval history: 01/10/2017: Patient's DKA has resolved last night. Currently she reports being generally weak, undergoing dialysis, reports decreased appetite and mild nausea and epigastric pain overall symptoms improved from yesterday. 01/09/2017: Patient went into DKA this morning, reported severe nausea with no vomiting now dry heaving, marginally improved with Zofran, some associated diffuse abdominal pain which all started early this morning. She denies fevers chills, she continues to have cough no chest pain, shortness of breath is at baseline. - Constitutional Vitals: Temp Pulse Resp BP Pulse Ox 98.0 F 60 17 100/52 96 01/10/17 16:06 01/10/17 16:06 01/10/17 16:06 01/10/17 16:06 01/10/17 16:06 General appearance: Present: A&O X 3 - Respiratory Respiratory exam: Present: CTAB. Absent: accessory muscle use, rales, rhonchi, wheezes - Cardiovascular Cardiovascular exam: Present: RRR, +S1, +S2. Absent: diastolic murmur, gallop, rubs, systolic murmur - GI/Abdominal GI/Abdominal exam: Present: normal bowel sounds, soft, no peritoneal signs. Absent: distended, tenderness Internal Medicine: Result - Labs CBC & Chem 7: 01/10/17 00:46 01/10/17 00:46 Labs: Short CBC 01/10/17 Range/Units 00:46 WBC 12.6 H (4.3-11.1) K/mcL Hgb 10.3 L (11.5-15.4) g/dL Hct 30.4 L (35.3-44.9) % Plt Count 232 (140-400) K/mcL Neutrophils # 7.9 (1.6-8.9) K/mcL BMP 01/09/17 01/10/17 21:07 00:46 Sodium 132 L 135 L Potassium 5.8 H D 4.8 H D Chloride 95 L 99 Carbon Dioxide 21 20 BUN 52 H 55 H Creatinine 6.17 H 6.30 H Glucose 300 H 69 L Calcium 8.3 L 8.5 L - ABG Interpretation ABG results: PT/INR, D-dimer PT 9.9 Seconds (9.4-12.1) 01/06/17 06:30 Consult Discharge Plan - Plan Referrals: Hugo Mercedes MD [Primary Care Provider] - 01/16/17 2:00 pm ()
[2017-01-11] MEDS: traMADol 50 MG TABLET PO PRN (00:23)
[2017-01-11] MEDS: Ipratropium/Albuterol Neb 3 ML IH SCH ×6 (03:34→23:20)
[2017-01-11 04:11] LABS: Basophils # 0.1 K/mcL (0.0-0.2); Basophils % 0.5 %; Eosinophils # 0.5 K/mcL (0.0-0.6); Eosinophils % 3.9 %; Hematocrit 33.1 % (35.3-44.9); Hemoglobin 10.9 g/dL (11.5-15.4); Immature Granulocytes % 0.4 % (0-4); Lymphocytes # 4.2 K/mcL (0.6-4.6); Mean Corpuscular HGB Conc 32.9 g/dL (31.6-35.5); Mean Corpuscular Hemoglobin 32.2 pg (28.0-33.3); Mean Corpuscular Volume 97.9 fL (83.0-100.0); Mean Platelet Volume 11.2 fL (9.4-12.4); Monocytes % 8.7 %; Neutrophils # 6.1 K/mcL (1.6-8.9); Platelet Count 218 K/mcL (140-400); Red Blood Count 3.38 M/mcL (3.82-4.97); Red Cell Distribution Width 15.1 % (11.5-14.5); Segmented Neutrophils % 51.5 %
[2017-01-11 04:23] LABS: Calcium 8.8 mg/dL (8.6-10.8)
[2017-01-11] MEDS: hydrALAZINE 25 MG TABLET PO SCH ×3 (05:14→23:43)
[2017-01-11] MEDS: *HR* Heparin 5,000 UNIT/ML VIAL SQ SCH ×2 (05:15→17:12)
[2017-01-11] MEDS: Gabapentin 300 MG CAPSULE PO SCH (08:12)
[2017-01-11] MEDS: amLODIPine 5 MG TABLET PO SCH (08:12)
[2017-01-11] MEDS: Renal Vitamin 1 MG CAPSULE PO SCH (08:12)
[2017-01-11] MEDS: Insulin DETEMIR 100 UNIT/ML X5UNITS SQ SCH (08:12)
[2017-01-11] MEDS: Aspirin Enteric Coated 81 MG Tablet PO SCH (08:13)
[2017-01-11] MEDS: Metoprolol XL (24 HR) Succ 50 MG TAB.ER.24H PO SCH (08:13)
[2017-01-11] MEDS: Isosorbide MONOnitrate (24 HR) 60 MG TAB.ER.24H PO SCH (08:13)
[2017-01-11] MEDS: Furosemide 40 MG TABLET PO SCH (08:13)
[2017-01-11] MEDS: Calcium Acetate 667 MG CAPSULE PO SCH ×3 (08:13→17:12)
[2017-01-11] MEDS: Nitroglycerin 0.1 MG PATCH.TD24 TP SCH (08:14)
[2017-01-11] MEDS: (INSULIN PUMP) SQ SCH (08:14)
--- NOTE | 2017-01-11 09:02 | Event Note ---
Date of Encounter: 01/11/17 Time of Encounter: 09:00 Nephrology Care Review Was on HD yesterday (Friday) with the next planned HD on Friday. Biochemically, I reviewed her labs and there is no hyperkalemia or apparent need for extra HD. Yesterday I saw the pt's , and he voiced concern about an episode of severe hypoglycemia. He had spoke with the charge nurse. When I saw the pt yesterday, she was feeling better as seen on dialysis. I will be available this weekend if needed. Thank you.
[2017-01-11] MEDS: Amoxicillin/Clavulanate 500 MG TABLET PO SCH (12:11)
--- NOTE | 2017-01-11 17:36 | Internal Med Progress Note ---
Date of Encounter: 01/11/17 Time of Encounter: 14:00 - Assessment and plan (1) HCAP (healthcare-associated pneumonia) Current Visit: Yes Status: Suspected Assessment and plan: Blood culture remained negative, shortness of breath has improved improved, will continue with Augmentin. Monitor white blood cell count and temperature curve. (2) Acute respiratory failure with hypoxia Current Visit: Yes Status: Acute Assessment and plan: Likely secondary to pneumonia and fluid overload, improved with hemodialysis. Continue fluid management but hemodialysis. (3) Encephalopathy acute Current Visit: Yes Status: Acute Assessment and plan: Improved after dialysis. Continue to monitor. Avoid excessive sedation. (4) ESRD (end stage renal disease) on dialysis Current Visit: Yes Status: Acute Assessment and plan: Appreciate and nephrology recommendations. Continue with dialysis Friday (5) Hyperkalemia Current Visit: No Status: Acute (6) UTI (urinary tract infection) Current Visit: Yes Status: Acute Assessment and plan: Urine culture is negative. Complete a total of 5 days of Levaquin. Qualifiers: Urinary tract infection type: site unspecified Hematuria presence: without hematuria Qualified Code(s): N39.0 - Urinary tract infection, site not specified (7) DKA (diabetic ketoacidoses) Current Visit: No Status: Acute Assessment and plan: 01/11/2017: Her DKA has resolved. Her blood glucoses better controlled after starting insulin pump and Levemir. Since her insulin pump has a basal dose I will switch Levemir to daily only. I suspect that her DKA might have been related to starting liothyronine for thyroid function replacement. At this point I do not think it safe to restart that medication. We will continue to monitor her glucose. 01/10/2017: She was in DKA rested yesterday and was treated with insulin drip. DKA has resolved. DKA has resolved. I will start her insulin pump and start low dose low acting insulin. 01/09/2017: The only new medication liothyronine for hypothyroidism which typically does not worsen diabetes. I will hold this medication as a precaution and will start therapy for DKA with insulin drip, IV fluids and every hour glucose checks. Patient's glucose remained elevated and was quite resistant to insulin drip. Subsequently the patient's glucose dropped in the mid 200 then 137 and then the patient became lethargic and her blood glucose was 47. At this point she was given 25 g of IV D50. Qualifiers: Diabetes mellitus type: type 1 Diabetes mellitus complication detail: without coma Qualified Code(s): E10.10 - Type 1 diabetes mellitus with ketoacidosis without coma (8) Hypothyroidism Current Visit: Yes Status: Acute Assessment and plan: T3 was low and she was started on liothyronine. I will hold off on this due to concern for possibly precipitating her DKA. We will monitor clinically. Qualifiers: Hypothyroidism type: unspecified Qualified Code(s): E03.9 - Hypothyroidism , unspecified - Subjective Interval history: 01/11/2017: Patient reports improvement overall in her condition, specifically improved about abdominal pain, continued generalized weakness. Denies fevers chills dysuria hematuria Her blood glucose has been better controlled after she was started on her insulin pump yesterday. 01/10/2017: Patient's DKA has resolved last night. Currently she reports being generally weak, undergoing dialysis, reports decreased appetite and mild nausea and epigastric pain overall symptoms improved from yesterday. 01/09/2017: Patient went into DKA this morning, reported severe nausea with no vomiting now dry heaving, marginally improved with Zofran, some associated diffuse abdominal pain which all started early this morning. She denies fevers chills, she continues to have cough no chest pain, shortness of breath is at baseline. - Constitutional Vitals: Temp Pulse Resp BP Pulse Ox 98.1 F 68 20 116/69 98 01/11/17 16:30 01/11/17 16:30 01/11/17 16:30 01/11/17 16:30 01/11/17 16:30 General appearance: Present: A&O X 3 - Respiratory Respiratory exam: Present: CTAB. Absent: accessory muscle use, rales, rhonchi, wheezes - Cardiovascular Cardiovascular exam: Present: RRR, +S1, +S2. Absent: diastolic murmur, gallop, rubs, systolic murmur - GI/Abdominal GI/Abdominal exam: Present: normal bowel sounds, soft, no peritoneal signs. Absent: distended, tenderness - Skin Skin exam: Present: dry, intact Internal Medicine: Result - Labs CBC & Chem 7: 01/11/17 04:03 01/11/17 04:03 Labs: Short CBC 01/11/17 Range/Units 04:03 WBC 11.9 H (4.3-11.1) K/mcL Hgb 10.9 L (11.5-15.4) g/dL Hct 33.1 L (35.3-44.9) % Plt Count 218 (140-400) K/mcL Neutrophils # 6.1 (1.6-8.9) K/mcL BMP 01/11/17 04:03 Sodium 137 Potassium 4.0 Chloride 99 Carbon Dioxide 24 BUN 32 H D Creatinine 5.31 H Glucose 76 Calcium 8.8 - ABG Interpretation ABG results: PT/INR, D-dimer PT 9.9 Seconds (9.4-12.1) 01/06/17 06:30 Consult Discharge Plan - Plan Referrals: Hugo Mercedes MD [Primary Care Provider] - 01/16/17 2:00 pm ()
[2017-01-12] MEDS: traMADol 50 MG TABLET PO PRN ×2 (00:22→20:06)
[2017-01-12] MEDS: Ipratropium/Albuterol Neb 3 ML IH SCH ×6 (03:28→22:53)
[2017-01-12] MEDS: *HR* Heparin 5,000 UNIT/ML VIAL SQ SCH ×2 (04:58→16:37)
[2017-01-12] MEDS: hydrALAZINE 25 MG TABLET PO SCH ×3 (04:58→20:05)
[2017-01-12 06:39] LABS: Basophils # 0.1 K/mcL (0.0-0.2); Basophils % 0.6 %; Eosinophils # 0.4 K/mcL (0.0-0.6); Eosinophils % 3.5 %; Hematocrit 34.5 % (35.3-44.9); Hemoglobin 11.3 g/dL (11.5-15.4); Immature Granulocytes % 0.6 % (0-4); Lymphocytes # 3.1 K/mcL (0.6-4.6); Lymphocytes % 25.5 %; Mean Corpuscular HGB Conc 32.8 g/dL (31.6-35.5); Mean Corpuscular Hemoglobin 32.3 pg (28.0-33.3); Mean Corpuscular Volume 98.6 fL (83.0-100.0); Mean Platelet Volume 11.9 fL (9.4-12.4); Monocytes % 8.5 %; Neutrophils # 7.4 K/mcL (1.6-8.9); Platelet Count 176 K/mcL (140-400); Red Cell Distribution Width 14.8 % (11.5-14.5); Segmented Neutrophils % 61.3 %
[2017-01-12 06:51] LABS: Calcium 8.4 mg/dL (8.6-10.8); Potassium 4.6 mEq/L (3.5-4.5)
[2017-01-12] MEDS: amLODIPine 5 MG TABLET PO SCH (07:21)
[2017-01-12] MEDS: Furosemide 40 MG TABLET PO SCH (07:21)
[2017-01-12] MEDS: Calcium Acetate 667 MG CAPSULE PO SCH ×3 (07:22→16:37)
[2017-01-12] MEDS: Aspirin Enteric Coated 81 MG Tablet PO SCH (07:22)
[2017-01-12] MEDS: Nitroglycerin 0.1 MG PATCH.TD24 TP SCH (07:22)
[2017-01-12] MEDS: Metoprolol XL (24 HR) Succ 50 MG TAB.ER.24H PO SCH (07:22)
[2017-01-12] MEDS: Gabapentin 300 MG CAPSULE PO SCH (07:22)
[2017-01-12] MEDS: Isosorbide MONOnitrate (24 HR) 60 MG TAB.ER.24H PO SCH (07:22)
[2017-01-12] MEDS: Renal Vitamin 1 MG CAPSULE PO SCH (07:22)
[2017-01-12] MEDS: (INSULIN PUMP) SQ SCH ×2 (07:23→07:27)
[2017-01-12] MEDS: Insulin DETEMIR 100 UNIT/ML X5UNITS SQ SCH (07:32)
[2017-01-12] MEDS ORDERED: Benzonatate 100 MG CAPSULE PO PRN (09:58)
--- NOTE | 2017-01-12 10:34 | Discharge Summary ---
Date of Encounter: 01/12/17 Time of Encounter: 10:23 - Discharge Diagnosis (1) HCAP (healthcare-associated pneumonia) Priority: Secondary Status: Suspected (2) Acute respiratory failure with hypoxia Priority: Primary Status: Acute (3) Encephalopathy acute Priority: Secondary Status: Acute (4) ESRD (end stage renal disease) on dialysis Priority: Secondary Status: Acute (5) Hyperkalemia Priority: Secondary Status: Acute (6) UTI (urinary tract infection) Priority: Secondary Status: Acute Qualifiers: Urinary tract infection type: site unspecified Hematuria presence: without hematuria Qualified Code(s): N39.0 - Urinary tract infection, site not specified (7) DKA (diabetic ketoacidoses) Priority: Secondary Status: Acute Qualifiers: Diabetes mellitus type: type 1 Diabetes mellitus complication detail: without coma Qualified Code(s): E10.10 - Type 1 diabetes mellitus with ketoacidosis without coma (8) Hypothyroidism Priority: Secondary Status: Acute Qualifiers: Hypothyroidism type: unspecified Qualified Code(s): E03.9 - Hypothyroidism , unspecified - Discharge Medications Prescriptions: GuaiFENesin/Dextromethorphan [Robitussin/Dm] 5 ml PO Q6HR PRN 10 Days PRN Reason: Cough Benzonatate [Tessalon] 200 mg PO TID PRN #30 PRN Reason: Cough Insulin Glargine [Lantus] 5 unit SQ DAILY 30 Days Home Medications: Levothyroxine Sodium [Synthroid] 200 mcg PO DAILY 02/08/16 [History] Polyethylene Glycol 3350 [MiraLAX] 17 gm PO DAILY PRN 02/08/16 [History] amLODIPine [Norvasc] 10 mg PO DAILY 02/14/16 [History] Docusate [Colace] 100 mg PO BID PRN 30 Days 02/19/16 [Rx] Aspirin [Lo-Dose Aspirin EC] 81 mg PO DAILY 05/26/16 [History] Atorvastatin [Lipitor] 40 mg PO DAILY 05/26/16 [History] Calcium Acetate [Phos-LO] 1,334 mg PO TIDWM 05/26/16 [History] Duloxetine HCl [Cymbalta] 30 mg PO DAILY 05/26/16 [History] Ergocalciferol (VITAMIN D2) [Vitamin D2] 50,000 unit PO WE 05/26/16 [History] Ezetimibe [Zetia] 10 mg PO DAILY 05/26/16 [History] Febuxostat [Uloric] 80 mg PO DAILY 05/26/16 [History] Furosemide [Lasix] 40 mg PO DAILY 05/26/16 [History] Gabapentin [Neurontin] 300 mg PO DAILY 05/26/16 [History] Hydralazine HCl 50 mg PO Q8H 05/26/16 [History] Isosorbide MONOnitrate (24 HR) [Imdur] 120 mg PO DAILY 05/26/16 [History] LORazepam [Ativan] 0.5 - 1 mg PO BID PRN 05/26/16 [History] Metoprolol XL (24 HR) Succ [Toprol Xl] 50 mg PO DAILY 05/26/16 [History] Renal Vitamin [Renal Caps Softgel] 1 mg PO DAILY 05/26/16 [History] Allopurinol [Zyloprim 300 MG] 300 mg PO DAILY 05/27/16 [History] Insulin LISPRO [HumaLOG] 0 units SQ DAILY PRN MDD 110 units daily 05/27/16 [ History] Meloxicam 15 mg PO DAILY 05/27/16 [History] Nitroglycerin 0.1 mg TP DAILY 08/11/16 [History] Ondansetron ODT [Zofran ODT] 4 mg SL Q6HR PRN 08/11/16 [History] Tramadol HCl [Ultram] 50 mg PO Q6HR PRN 08/11/16 [History] Lidocaine Patch [Lidoderm 5% patch] 1 each TP DAILY #10 08/19/16 [Rx] Cinacalcet [Sensipar] 30 mg PO DAILY 01/06/17 [History] Oxycodone HCl 10 mg PO TID PRN 01/06/17 [History] Benzonatate [Tessalon] 200 mg PO TID PRN #30 01/12/17 [Rx] GuaiFENesin/Dextromethorphan [Robitussin/Dm] 5 ml PO Q6HR PRN 10 Days 01/12/17 [ Rx] Insulin Glargine [Lantus] 5 unit SQ DAILY 30 Days 01/12/17 [Rx] Allergies/Adverse Reactions: 3 Allergy/AdvReac Type Severity Reaction Status Date / Time IVP DYE Allergy See Uncoded 08/29/16 09:03 Comments ivp dye Allergy See Uncoded 05/27/16 08:00 Comments Date of admission: 01/06/17 18:03 Primary care physician: Hugo Mercedes MD Consults: 01/07/17 09:00 Consult to Occupational Therapy [CONS] Routine Comment: Evaluate, develop and implement POC Reason for Consult: reduced range of mobility Consult to Physical Therapy [CONS] Routine Comment: Evaluate, develop and implement POC Reason for Consult: reduced range of mobility 01/08/17 08:30 Consult to Dialysis [CONS] ONCE 01/10/17 07:00 Consult to Dialysis [CONS] ONCE - Patient Status Disposition: Home, Self-Care Condition: Fair Overall status at discharge: patient is progressing back to baseline - Discharge Instructions Follow Up With: Hugo Mercedes MD [Primary Care Provider] - 01/16/17 2:00 pm () - Diet and Activity Activity: increase activity as tolerated Diet: diabetic diet, low salt diet, other Hospital course: Ms. Moffett is a 71 year old female with past medical history significant for insulin-dependent diabetes, end-stage renal disease on hemodialysis, hypertension, hypothyroidism and coronary artery disease who presented to the hospital sent from her dialysis units for evaluation of decreased level of consciousness and low oxygen saturation. It was reported that her oxygen saturation was 70% when EMS arrived. She was brought to the hospital where upon initial evaluation a chest x-ray revealed pulmonary congestion and possible pneumonia. Urinalysis was positive for white blood cells and leukocyte concerning for UTI. She was admitted to the medical service and received treatment with broad-spectrum IV antibiotics. Her respiratory status improved. She had hemodialysis the next day with fluid removal and this further improved her shortness of breath. Her mental status improved back to baseline. Her hospitalization was complicated by one episode of DKA for which she required insulin drip. During her treatment with insulin drip her blood glucose dropped to 45 in all insulin was stopped and she required treatment with IV dextrose. This has resolved and for the past 48 hours she restarted using her insulin pump and was given additionally 5 units of Levemir and her blood glucose has been 1 current well-controlled between 70 and 150 on average with outliers in the low 200s. She continues to have a dry cough for which she has been prescribed guaifenesin and Tessalon Perles as needed. Her blood culture and urine culture showed no growth. She completed 6 days of IV and oral antibiotics. She is currently medically stable for discharge home. - Time Spent with Patient Total time spent providing and/or coordinating discharge services: Greater than 30 minutes - Constitutional Vitals: Temp Pulse Resp BP Pulse Ox 98.2 F 66 16 155/78 96 01/12/17 06:53 01/12/17 06:53 01/12/17 06:53 01/12/17 06:53 01/12/17 07:35 General appearance: Present: A&O X 3 - Respiratory Respiratory exam: Present: CTAB. Absent: accessory muscle use, rales, rhonchi, wheezes - Cardiovascular Cardiovascular exam: Present: RRR, +S1, +S2. Absent: diastolic murmur, gallop, rubs, systolic murmur - Extremities Exam Extremities exam: Present: warm, radial pulses palpable and symmetrical. Absent : calf tenderness, cyanotic, pedal edema
--- NOTE | 2017-01-12 11:30 | Physician Discharge Referral ---
Home Health/Hosp Referral Info Transfer to: Home Health Provider in Charge Post Discharge: PCP - Diagnosis (1) HCAP (healthcare-associated pneumonia) Status: Suspected (2) Acute respiratory failure with hypoxia Status: Acute (3) Encephalopathy acute Status: Acute (4) ESRD (end stage renal disease) on dialysis Status: Acute (5) Hyperkalemia Status: Acute (6) UTI (urinary tract infection) Status: Acute (7) DKA (diabetic ketoacidoses) Status: Acute (8) Hypothyroidism Status: Acute - Respiratory Orders Oxygen / L per min (2-3 L/m) Smoking Cessation: Smoking cessation has been advised. For more information, call the [place] Tobacco Quit Line at 6-787-OKWS-NOW. - Diet/Nutrition Diet/Nutrition Orders: Renal, Cardiac, No Concentrated Sweets - Activity Activity Orders: Walker - Services Needed Following services are medically necessary services: Nursing, Home Health Aide, Physical Therapy - Transfer Medications Prescriptions: GuaiFENesin/Dextromethorphan [Robitussin/Dm] 5 ml PO Q6HR PRN 10 Days PRN Reason: Cough Benzonatate [Tessalon] 200 mg PO TID PRN #30 PRN Reason: Cough Insulin Glargine [Lantus] 5 unit SQ DAILY 30 Days Home Medications: Levothyroxine Sodium [Synthroid] 200 mcg PO DAILY 02/08/16 [History] Polyethylene Glycol 3350 [MiraLAX] 17 gm PO DAILY PRN 02/08/16 [History] amLODIPine [Norvasc] 10 mg PO DAILY 02/14/16 [History] Docusate [Colace] 100 mg PO BID PRN 30 Days 02/19/16 [Rx] Aspirin [Lo-Dose Aspirin EC] 81 mg PO DAILY 05/26/16 [History] Atorvastatin [Lipitor] 40 mg PO DAILY 05/26/16 [History] Calcium Acetate [Phos-LO] 1,334 mg PO TIDWM 05/26/16 [History] Duloxetine HCl [Cymbalta] 30 mg PO DAILY 05/26/16 [History] Ergocalciferol (VITAMIN D2) [Vitamin D2] 50,000 unit PO WE 05/26/16 [History] Ezetimibe [Zetia] 10 mg PO DAILY 05/26/16 [History] Febuxostat [Uloric] 80 mg PO DAILY 05/26/16 [History] Furosemide [Lasix] 40 mg PO DAILY 05/26/16 [History] Gabapentin [Neurontin] 300 mg PO DAILY 05/26/16 [History] Hydralazine HCl 50 mg PO Q8H 05/26/16 [History] Isosorbide MONOnitrate (24 HR) [Imdur] 120 mg PO DAILY 05/26/16 [History] LORazepam [Ativan] 0.5 - 1 mg PO BID PRN 05/26/16 [History] Metoprolol XL (24 HR) Succ [Toprol Xl] 50 mg PO DAILY 05/26/16 [History] Renal Vitamin [Renal Caps Softgel] 1 mg PO DAILY 05/26/16 [History] Allopurinol [Zyloprim 300 MG] 300 mg PO DAILY 05/27/16 [History] Insulin LISPRO [HumaLOG] 0 units SQ DAILY PRN MDD 110 units daily 05/27/16 [ History] Meloxicam 15 mg PO DAILY 05/27/16 [History] Nitroglycerin 0.1 mg TP DAILY 08/11/16 [History] Ondansetron ODT [Zofran ODT] 4 mg SL Q6HR PRN 08/11/16 [History] Tramadol HCl [Ultram] 50 mg PO Q6HR PRN 08/11/16 [History] Lidocaine Patch [Lidoderm 5% patch] 1 each TP DAILY #10 08/19/16 [Rx] Cinacalcet [Sensipar] 30 mg PO DAILY 01/06/17 [History] Oxycodone HCl 10 mg PO TID PRN 01/06/17 [History] Benzonatate [Tessalon] 200 mg PO TID PRN #30 01/12/17 [Rx] GuaiFENesin/Dextromethorphan [Robitussin/Dm] 5 ml PO Q6HR PRN 10 Days 01/12/17 [ Rx] Insulin Glargine [Lantus] 5 unit SQ DAILY 30 Days 01/12/17 [Rx] Allergies/Adverse Reactions: 3 Allergy/AdvReac Type Severity Reaction Status Date / Time IVP DYE Allergy See Uncoded 01/01/16 09:03 Comments ivp dye Allergy See Uncoded 05/27/16 08:00 Comments Certification: Further, I certify that my clinical findings support that this patient is homebound (i.e. absences from home require considerable and taxing effort and are for medical reasons or buddhism services or infrequently or short duration when for other reasons) because: Homebound Reason: Patient requires assistance of a person or device to safely leave home, Leaving home requires considerable and taxing effort due to condition, Severity of cardiac or pulmonary status limits activity tolerance Attestation: My signature below is to certify that this patient is under my care and that I, or nurse practitioner, or a physician's embroidery assistant working with me, has a face-to -face encounter with this patient.
[2017-01-12] MEDS: Amoxicillin/Clavulanate 500 MG TABLET PO SCH (11:39)
--- NOTE | 2017-01-12 15:55 | Event Note ---
Date of Encounter: 01/12/17 Time of Encounter: 12:00 Patient has intractable cough and states that it causes her to be severely short of breath. On auscultation she is clear. Slightly diminished at bases. I have started Tessalon Perles and guaifenesin/dextromethorphan and noticed minimal improvement. Her vital signs are stable, oxygenation is good but because of dyspnea cough I will obtain a CT of the chest and cancel her discharge today.
[2017-01-13] MEDS: traMADol 50 MG TABLET PO PRN (04:16)
[2017-01-13] MEDS: hydrALAZINE 25 MG TABLET PO SCH ×2 (04:16→13:27)
[2017-01-13] MEDS: Ipratropium/Albuterol Neb 3 ML IH SCH ×3 (04:30→11:09)
[2017-01-13 04:55] LABS: Calcium 8.2 mg/dL (8.6-10.8)
[2017-01-13 04:56] LABS: Potassium 5.4 mEq/L (3.5-4.5)
[2017-01-13] MEDS ORDERED: 0.9 % Sodium Chloride 250 ML IVC PRN (06:00)
[2017-01-13 06:08] LABS: Basophils % 0.4 %; Eosinophils # 0.3 K/mcL (0.0-0.6); Hematocrit 31.8 % (35.3-44.9); Hemoglobin 10.3 g/dL (11.5-15.4); Immature Granulocytes % 0.5 % (0-4); Lymphocytes # 2.6 K/mcL (0.6-4.6); Lymphocytes % 23.3 %; Mean Corpuscular HGB Conc 32.4 g/dL (31.6-35.5); Mean Corpuscular Hemoglobin 32.1 pg (28.0-33.3); Mean Corpuscular Volume 99.1 fL (83.0-100.0); Mean Platelet Volume 10.9 fL (9.4-12.4); Monocytes # 1.2 K/mcL (0.0-1.3); Monocytes % 10.5 %; Platelet Count 217 K/mcL (140-400); Red Blood Count 3.21 M/mcL (3.82-4.97); Red Cell Distribution Width 14.9 % (11.5-14.5); Segmented Neutrophils % 62.3 %
[2017-01-13] MEDS: *HR* Heparin 5,000 UNIT/ML VIAL SQ SCH (06:17)
[2017-01-13] MEDS ORDERED: *HR* Heparin 5,000 UNIT/ML VIAL ONE (07:51)
[2017-01-13] MEDS ORDERED: 0.9 % Sodium Chloride 2,000 ML ONE (07:51)
[2017-01-13] MEDS: Calcium Acetate 667 MG CAPSULE PO SCH ×2 (08:57→13:27)
[2017-01-13] MEDS: Gabapentin 300 MG CAPSULE PO SCH (08:57)
[2017-01-13] MEDS: Renal Vitamin 1 MG CAPSULE PO SCH (08:58)
[2017-01-13] MEDS: (INSULIN PUMP) SQ SCH ×3 (08:58→10:52)
[2017-01-13] MEDS: Aspirin Enteric Coated 81 MG Tablet PO SCH (08:58)
[2017-01-13] MEDS: Nitroglycerin 0.1 MG PATCH.TD24 TP SCH (09:07)
[2017-01-13] MEDS: Insulin DETEMIR 100 UNIT/ML X5UNITS SQ SCH (09:08)
--- NOTE | 2017-01-13 09:49 | Nephrology Progress Note ---
Date of Encounter: 01/13/17 Time of Encounter: 09:15 - Assessment and Plan (1) End-stage renal disease on hemodialysis Current Visit: Yes Status: Chronic HD today for clearance and UF Vital signs were stable and not hypotensive. No cramping. Good blood flows noted while on HD. Okay to d/c from a nephrology perspective. (2) Acute metabolic encephalopathy Current Visit: Yes Status: Acute Resolved (3) Hyperkalemia Current Visit: Yes Status: Acute HD today for clearance. Chronic. (4) Hyponatremia Current Visit: Yes Status: Acute Improving. HD today. (5) UTI (urinary tract infection) Current Visit: Yes Status: Acute As per primary . Qualifiers: Urinary tract infection type: site unspecified Hematuria presence: without hematuria Qualified Code(s): N39.0 - Urinary tract infection, site not specified Subjective Principal diagnosis: ESRD on dialysis, Bradycardia, hypoxia Interval history: Pt was s/e while on HD. She not affirm N/V, cramping or other major complaints. She voiced feeling much better and her BG has been very stable the last few days. She said that she's going to be discharged after HD today. Objective - Vital Signs Vital signs: Vital Signs Temp Pulse Resp BP Pulse Ox 01/13/17 09:18 95 01/13/17 06:57 98.0 F 64 18 134/68 95 01/13/17 04:23 98.3 F 61 19 136/66 94 01/13/17 00:45 97.7 F 63 19 131/68 94 01/12/17 20:20 97 01/12/17 19:08 98.3 F 63 18 117/63 94 01/12/17 15:33 97.8 F 56 16 115/57 96 01/12/17 11:23 98.3 F 60 16 132/63 97 Intake and Output 01/12/17 01/13/17 01/13/17 23:59 07:59 15:59 Intake Total 120 / 120 120 / 120 Output Total 0 / 0 Balance 120 / 120 120 / 120 Intake: Oral 120 / 120 120 / 120 Output: Urine 0 / 0 Other: Meal Dinner Breakfast Percent of Meal Consumed 40% 90% Stool Size Small Stool Consistency soft Stool Color Brown # Bowel Movements 1 Weight 73.6 kg Blood Glucose* 147 170 139 Patient Weight 01/13/17 23:59 Weight 73.6 kg - General Appearance General appearance: Present: well-developed, appears started age, obese EENT: Present: ATNC, PERRL, mucous membranes moist Neck: Present: supple Respiratory: Present: course breath sounds Cardiology: Present: no edema, regular rate, normal S1, normal S2 Dialysis Vascular Access: Arteriovenous Fistula (left AVF) thrill: Yes bruit: Yes Gastrointestinal: Present: normoactive bowel sounds, no tenderness, no guarding Integumentary: Present: no rash, warm and dry Neurologic: Present: no focal deficit, no asterixis, alert and oriented x3 Musculoskeletal: Present: no cyanosis, no clubbing Psychiatric: Present: mood/affect appropriate, cooperative - Lab 01/13/17 05:49 01/13/17 03:46 Most recent lab results Calcium 8.2 mg/dL (8.6-10.8) L 01/13/17 03:46 Phosphorus 4.9 mg/dL (2.3-4.7) H 01/07/17 04:00 Magnesium 1.9 mg/dL (1.6-2.6) 01/09/17 14:30 Consult Discharge Plan - Plan Referrals: Hugo Mercedes MD [Primary Care Provider] - 01/16/17 2:00 pm () Prescriptions: GuaiFENesin/Dextromethorphan [Robitussin/Dm] 5 ml PO Q6HR PRN 10 Days PRN Reason: Cough Benzonatate [Tessalon] 200 mg PO TID PRN #30 PRN Reason: Cough Insulin Glargine [Lantus] 5 unit SQ DAILY 30 Days
[2017-01-13 12:29] VITALS: BP 170/81
[2017-01-13] MEDS: Metoprolol XL (24 HR) Succ 50 MG TAB.ER.24H PO SCH (13:26)
[2017-01-13] MEDS: Isosorbide MONOnitrate (24 HR) 60 MG TAB.ER.24H PO SCH (13:27)
[2017-01-13] MEDS: amLODIPine 5 MG TABLET PO SCH (13:27)
[2017-01-13] MEDS: Amoxicillin/Clavulanate 500 MG TABLET PO SCH (13:27)
[2017-01-13] MEDS: Furosemide 40 MG TABLET PO SCH (13:27)
--- NOTE | 2017-01-13 13:52 | Discharge Summary ---
Date of Encounter: 01/13/17 - Discharge Diagnosis (1) HCAP (healthcare-associated pneumonia) Status: Suspected (2) Acute respiratory failure with hypoxia Status: Acute (3) Encephalopathy acute Status: Acute (4) ESRD (end stage renal disease) on dialysis Status: Acute (5) Hyperkalemia Status: Acute (6) UTI (urinary tract infection) Status: Acute Qualifiers: Urinary tract infection type: site unspecified Hematuria presence: without hematuria Qualified Code(s): N39.0 - Urinary tract infection, site not specified (7) DKA (diabetic ketoacidoses) Status: Acute Qualifiers: Diabetes mellitus type: type 1 Diabetes mellitus complication detail: without coma Qualified Code(s): E10.10 - Type 1 diabetes mellitus with ketoacidosis without coma (8) Hypothyroidism Status: Acute Qualifiers: Hypothyroidism type: unspecified Qualified Code(s): E03.9 - Hypothyroidism , unspecified - Discharge Medications Prescriptions: GuaiFENesin/Dextromethorphan [Robitussin/Dm] 5 ml PO Q6HR PRN 10 Days PRN Reason: Cough Benzonatate [Tessalon] 200 mg PO TID PRN #30 PRN Reason: Cough Cefuroxime PO [Ceftin] 500 mg PO DAILY #7 tablet Insulin Glargine [Lantus] 5 unit SQ DAILY 30 Days Home Medications: Levothyroxine Sodium [Synthroid] 200 mcg PO DAILY 02/08/16 [History] Polyethylene Glycol 3350 [MiraLAX] 17 gm PO DAILY PRN 02/08/16 [History] amLODIPine [Norvasc] 10 mg PO DAILY 02/14/16 [History] Docusate [Colace] 100 mg PO BID PRN 30 Days 02/19/16 [Rx] Aspirin [Lo-Dose Aspirin EC] 81 mg PO DAILY 05/26/16 [History] Atorvastatin [Lipitor] 40 mg PO DAILY 05/26/16 [History] Calcium Acetate [Phos-LO] 1,334 mg PO TIDWM 05/26/16 [History] Duloxetine HCl [Cymbalta] 30 mg PO DAILY 05/26/16 [History] Ergocalciferol (VITAMIN D2) [Vitamin D2] 50,000 unit PO WE 05/26/16 [History] Ezetimibe [Zetia] 10 mg PO DAILY 05/26/16 [History] Febuxostat [Uloric] 80 mg PO DAILY 05/26/16 [History] Furosemide [Lasix] 40 mg PO DAILY 05/26/16 [History] Gabapentin [Neurontin] 300 mg PO DAILY 05/26/16 [History] Hydralazine HCl 50 mg PO Q8H 05/26/16 [History] Isosorbide MONOnitrate (24 HR) [Imdur] 120 mg PO DAILY 05/26/16 [History] LORazepam [Ativan] 0.5 - 1 mg PO BID PRN 05/26/16 [History] Metoprolol XL (24 HR) Succ [Toprol Xl] 50 mg PO DAILY 05/26/16 [History] Renal Vitamin [Renal Caps Softgel] 1 mg PO DAILY 05/26/16 [History] Allopurinol [Zyloprim 300 MG] 300 mg PO DAILY 05/27/16 [History] Insulin LISPRO [HumaLOG] 0 units SQ DAILY PRN MDD 110 units daily 05/27/16 [ History] Meloxicam 15 mg PO DAILY 05/27/16 [History] Nitroglycerin 0.1 mg TP DAILY 08/11/16 [History] Ondansetron ODT [Zofran ODT] 4 mg SL Q6HR PRN 08/11/16 [History] Tramadol HCl [Ultram] 50 mg PO Q6HR PRN 08/11/16 [History] Lidocaine Patch [Lidoderm 5% patch] 1 each TP DAILY #10 08/19/16 [Rx] Cinacalcet [Sensipar] 30 mg PO DAILY 01/06/17 [History] Oxycodone HCl 10 mg PO TID PRN 01/06/17 [History] Benzonatate [Tessalon] 200 mg PO TID PRN #30 01/12/17 [Rx] GuaiFENesin/Dextromethorphan [Robitussin/Dm] 5 ml PO Q6HR PRN 10 Days 01/12/17 [ Rx] Insulin Glargine [Lantus] 5 unit SQ DAILY 30 Days 01/12/17 [Rx] Cefuroxime PO [Ceftin] 500 mg PO DAILY #7 tablet 01/13/17 [Rx] Allergies/Adverse Reactions: 3 Allergy/AdvReac Type Severity Reaction Status Date / Time IVP DYE Allergy See Uncoded 01/01/16 09:03 Comments ivp dye Allergy See Uncoded 05/27/16 08:00 Comments Procedures/tests Complete & Pending: Procedures Performed prior 72 hours Category Date Time Status CT chest w/o contrast [CT chest wo con] [CT] Stat Cat Scan 01/12/17 13:04 Completed Date of admission: 01/06/17 18:03 Primary care physician: Hugo Mercedes MD Consults: 01/07/17 09:00 Consult to Occupational Therapy [CONS] Routine Comment: Evaluate, develop and implement POC Reason for Consult: reduced range of mobility Consult to Physical Therapy [CONS] Routine Comment: Evaluate, develop and implement POC Reason for Consult: reduced range of mobility 01/08/17 08:30 Consult to Dialysis [CONS] ONCE 01/10/17 07:00 Consult to Dialysis [CONS] ONCE 01/13/17 06:00 Consult to Dialysis [CONS] ONCE - Patient Status Disposition: Home, Self-Care Condition: Fair - Discharge Instructions Instructions: Benzonatate (By mouth), Antitussives (By mouth), Insulin Glargine (Injection), Urinary Tract Infection in Women (DC), Diabetes Mellitus Type 2 in Adults (DC) Follow Up With: Hugo Mercedes MD [Primary Care Provider] - 01/16/17 2:00 pm () Hospital course: Ms. Moffett is a 71 year old female - Time Spent with Patient Total time spent providing and/or coordinating discharge services: - Constitutional Vitals: Temp Pulse Resp BP Pulse Ox 97.7 F 64 16 170/81 95 01/13/17 12:05 01/13/17 06:57 01/13/17 12:05 01/13/17 12:05 01/13/17 09:18 General appearance: Present: A&O X 3
--- NOTE | 2017-01-13 14:07 | Internal Med Progress Note ---
Date of Encounter: 01/13/17 Time of Encounter: 14:05 - Assessment and plan (1) HCAP (healthcare-associated pneumonia) Current Visit: Yes Status: Suspected Assessment and plan: Completed treatment for pneumonia. CT of the chest was done and showed no infiltrate. She does have a cough likely related to bronchitis and therefore I will start a course of Ceftin. (2) Acute respiratory failure with hypoxia Current Visit: Yes Status: Acute Assessment and plan: Likely secondary to pneumonia and fluid overload, improved with hemodialysis. Continue fluid management but hemodialysis. (3) Encephalopathy acute Current Visit: Yes Status: Acute (4) ESRD (end stage renal disease) on dialysis Current Visit: Yes Status: Acute Assessment and plan: Had hemodialysis today. Appreciate and nephrology recommendations. Continue with dialysis Friday (5) Hyperkalemia Current Visit: No Status: Acute (6) UTI (urinary tract infection) Current Visit: Yes Status: Acute Qualifiers: Urinary tract infection type: site unspecified Hematuria presence: without hematuria Qualified Code(s): N39.0 - Urinary tract infection, site not specified (7) DKA (diabetic ketoacidoses) Current Visit: No Status: Acute Qualifiers: Diabetes mellitus type: type 1 Diabetes mellitus complication detail: without coma Qualified Code(s): E10.10 - Type 1 diabetes mellitus with ketoacidosis without coma (8) Hypothyroidism Current Visit: Yes Status: Acute Assessment and plan: Continue with levothyroxine and. Follow-up with PCP. Consider endocrinology referral. T3 was low and she was started on liothyronine. I will hold off on this due to concern for possibly precipitating her DKA. We will monitor clinically. Qualifiers: Hypothyroidism type: unspecified Qualified Code(s): E03.9 - Hypothyroidism , unspecified (9) Compression fracture of L1 lumbar vertebra Current Visit: Yes Status: Acute Assessment and plan: She has mild point tenderness in the upper lumbar spine. I discussed the case with Dr. German and will refer her to the spine Center. I have scheduled an appointment for tomorrow at 2 PM. Qualifiers: Encounter type: initial encounter Fracture type: closed Qualified Code(s) : S32.010A - Wedge compression fracture of first lumbar vertebra, initial encounter for closed fracture - Subjective Interval history: 01/13/2017: Patient continues to have a cough however this has improved from yesterday. She says that her cough medications help. Shortness of breath has improved. 01/11/2017: Patient reports improvement overall in her condition, specifically improved about abdominal pain, continued generalized weakness. Denies fevers chills dysuria hematuria Her blood glucose has been better controlled after she was started on her insulin pump yesterday. 01/10/2017: Patient's DKA has resolved last night. Currently she reports being generally weak, undergoing dialysis, reports decreased appetite and mild nausea and epigastric pain overall symptoms improved from yesterday. 01/09/2017: Patient went into DKA this morning, reported severe nausea with no vomiting now dry heaving, marginally improved with Zofran, some associated diffuse abdominal pain which all started early this morning. She denies fevers chills, she continues to have cough no chest pain, shortness of breath is at baseline. - Constitutional Vitals: Temp Pulse Resp BP Pulse Ox 97.7 F 64 16 170/81 95 01/13/17 12:05 01/13/17 06:57 01/13/17 12:05 01/13/17 12:05 01/13/17 09:18 General appearance: Present: A&O X 3 - Respiratory Respiratory exam: Present: rales. Absent: accessory muscle use, rhonchi, wheezes - Cardiovascular Cardiovascular exam: Present: RRR, +S1, +S2. Absent: diastolic murmur, gallop, rubs, systolic murmur - GI/Abdominal GI/Abdominal exam: Present: normal bowel sounds, soft, no peritoneal signs. Absent: distended, tenderness Internal Medicine: Result - Labs CBC & Chem 7: 01/13/17 05:49 01/13/17 03:46 Labs: Short CBC 01/13/17 Range/Units 05:49 WBC 11.2 H (4.3-11.1) K/mcL Hgb 10.3 L (11.5-15.4) g/dL Hct 31.8 L (35.3-44.9) % Plt Count 217 (140-400) K/mcL Neutrophils # 7.0 (1.6-8.9) K/mcL BMP 01/13/17 03:46 Sodium 135 L Potassium 5.4 H Chloride 101 Carbon Dioxide 17 L BUN 69 H D Creatinine 8.33 H Glucose 135 H Calcium 8.2 L - ABG Interpretation ABG results: PT/INR, D-dimer PT 9.9 Seconds (9.4-12.1) 01/06/17 06:30 Consult Discharge Plan - Plan Instructions: Cefuroxime (By mouth), Benzonatate (By mouth), Antitussives (By mouth), Insulin Glargine (Injection), Urinary Tract Infection in Women (DC), Diabetes Mellitus Type 2 in Adults (DC) Referrals: Hugo Mercedes MD [Primary Care Provider] - 01/16/17 2:00 pm () Prescriptions: GuaiFENesin/Dextromethorphan [Robitussin/Dm] 5 ml PO Q6HR PRN 10 Days PRN Reason: Cough Benzonatate [Tessalon] 200 mg PO TID PRN #30 PRN Reason: Cough Cefuroxime PO [Ceftin] 500 mg PO DAILY #7 tablet Insulin Glargine [Lantus] 5 unit SQ DAILY 30 Days
== END 2017-01-13 15:17 | disposition home or self-care (01) | DRG 291 ==
LOC: EMEROO 06:17 → 2ANU 06:17 → SUATTDRO 18:03
PROVIDERS: ADMIT Internal Medicine; ATTEND Internal Medicine

== ENCOUNTER 2017-02-11 09:12 | Inpatient (IN) ==
[2017-02-11] MEDS ORDERED: Ipratropium/Albuterol Neb 3 ML IH ONE (09:16)
[2017-02-11] MEDS ORDERED: methylPREDNISolone 125 MG/2 ML VIAL IVP ONE (09:16)
--- NOTE | 2017-02-11 09:27 | Emergency Department Note ---
Disposition Clinical Impression: CHF (congestive heart failure) Qualifiers: Congestive heart failure type: unspecified congestive heart failure type Congestive heart failure chronicity: acute Qualified Code(s): I50.9 - Heart failure, unspecified Renal failure Qualifiers: Renal failure chronicity: chronic Chronic kidney disease stage: on chronic dialysis Qualified Code(s): N18.6 - End stage renal disease DKA (diabetic ketoacidoses) Qualifiers: Diabetes mellitus type: type 1 Diabetes mellitus complication detail: without coma Qualified Code(s): E10.10 - Type 1 diabetes mellitus with ketoacidosis without coma Disposition: Admitted As Inpatient Condition: Critical Referrals: Hugo Mercedes MD [Primary Care Provider] - Forms: ED Satisfaction Letter Time of Disposition: 11:00 SOB HPI - General Chief Complaint: ED Shortness of Breath/Dyspnea Stated Complaint: NADYA Time Seen by Provider: 02/11/17 09:14 Source: patient, EMS Mode of arrival: EMS Limitations: no limitations Nursing Notes Reviewed: Yes Vital Signs Reviewed: Yes - History of Present Illness 71-year-old patient who is on dialysis who last had dialysis yesterday comes in with increasing shortness of breath. Patient does have a history of COPD. The patient was picked up by the squad her pulse ox was in the high 80s. Pt Subjective Complaint: shortness of breath Onset (ago): day(s) Context: other (Status post dialysis yesterday elevated blood pressure.) Severity: moderate Consistency/Duration: constant Worsens with: exertion Known history of: COPD, other (Renal failure) Associated symptoms: Denies: fever, cough Treatment prior to arrival: oxygen - Related Data Home Medications Medication Instructions Recorded Confirmed Levothyroxine Sodium [Synthroid] 200 mcg PO DAILY 02/08/16 02/11/17 Polyethylene Glycol 3350 [MiraLAX] 17 gm PO DAILY PRN 02/08/16 02/11/17 amLODIPine [Norvasc] 10 mg PO DAILY 02/14/16 02/11/17 Aspirin [Lo-Dose Aspirin EC] 81 mg PO DAILY 05/26/16 02/11/17 Atorvastatin [Lipitor] 40 mg PO DAILY 05/26/16 02/11/17 Calcium Acetate [Phos-LO] 1,334 mg PO TIDWM 05/26/16 02/11/17 Duloxetine HCl [Cymbalta] 30 mg PO DAILY 05/26/16 02/11/17 Ergocalciferol (VITAMIN D2) 50,000 unit PO WE 05/26/16 02/11/17 [Vitamin D2] Ezetimibe [Zetia] 10 mg PO DAILY 05/26/16 02/11/17 Febuxostat [Uloric] 80 mg PO DAILY 05/26/16 02/11/17 Furosemide [Lasix] 40 mg PO DAILY 05/26/16 02/11/17 Gabapentin [Neurontin] 300 mg PO DAILY 05/26/16 02/11/17 Hydralazine HCl 50 mg PO Q8H 05/26/16 02/11/17 Isosorbide MONOnitrate (24 HR) 120 mg PO DAILY 05/26/16 02/11/17 [Imdur] LORazepam [Ativan] 0.5 - 1 mg PO BID PRN 05/26/16 02/11/17 Metoprolol XL (24 HR) Succ [Toprol 50 mg PO DAILY 05/26/16 02/11/17 Xl] Renal Vitamin [Renal Caps Softgel] 1 mg PO DAILY 05/26/16 02/11/17 Allopurinol [Zyloprim 300 MG] 300 mg PO DAILY 05/27/16 02/11/17 Insulin LISPRO [HumaLOG] 0 units SQ DAILY PRN MDD 110 units 05/27/16 02/11/17 daily Meloxicam 15 mg PO DAILY 05/27/16 02/11/17 Tramadol HCl [Ultram] 50 mg PO Q6HR PRN 08/11/16 02/11/17 Cinacalcet [Sensipar] 30 mg PO DAILY 01/06/17 02/11/17 Oxycodone HCl 10 mg PO TID PRN 01/06/17 02/11/17 Insulin Glargine [Lantus] 10 unit SQ DAILY 02/11/17 02/11/17 Allergies Allergy/AdvReac Type Severity Reaction Status Date / Time IVP DYE Allergy See Uncoded 01/01/16 09:03 Comments ivp dye Allergy See Uncoded 05/27/16 08:00 Comments All systems ED: reviewed and negative except as stated. Constitutional: Denies: fever, chills, weakness, weight change Eyes: Denies: eye pain, eye discharge, vision change ENT ED: Denies: ear pain, throat pain, dental pain, hearing loss, epistaxis, congestion, dysphagia Cardiovascular: Denies: chest pain, palpitations, dyspnea on exertion, edema, syncope Respiratory: Reports: dyspnea. Denies: cough, wheezes, hemoptysis, stridor Gastrointestinal: Denies: abdominal pain, nausea, vomiting, diarrhea, constipation, hematemesis, melena, hematochezia Genitourinary: Denies: dysuria, frequency, hematuria, discharge Musculoskeletal: Denies: back pain, neck pain, arthralgia, myalgia Integumentary: Denies: rash, abrasion, lesions Neurological: Denies: headache, weakness, numbness, paresthesias, confusion, abnormal gait, vertigo Psychiatric: Denies: anxiety, depression, suicidal thoughts, homicidal thoughts , auditory hallucinations, visual hallucinations Endocrine: Denies: fatigue Hematological/Lymphatic: Denies: easy bleeding, easy bruising Allergic/Immunologic: Denies: facial swelling, urticaria Past Medical History - Past Medical History Medical history: Reports: diabetes, renal disease, hyperlipidemia, hypertension , thyroid disease, coronary artery disease, dialysis Surgical history: Reports: orthopedic, other, other, hysterectomy, vascular surgery Psychiatric history: Reports: no psych history, anxiety, depression - Social History Smoking Status: Never smoker Smokeless Tobacco Status: No Alcohol use: Reports: none Drug use: Reports: none Physical Exam - General Limitations: no limitations General appearance: alert, in no apparent distress - Head Head exam: atraumatic, normocephalic, normal inspection - Eye Eye exam: Present: normal appearance, PERRL, EOMI - ENT ENT exam: normal exam, normal oropharynx, mucous membranes moist - Neck Neck exam: Present: normal inspection, full ROM, trachea midline - Chest Chest inspection: Present: normal inspection, symmetric chest wall rise - Respiratory Respiratory exam: Present: normal lung sounds bilaterally - Cardiovascular Cardiovascular exam: Present: regular rate, normal rhythm, normal heart sounds - Abdominal Exam Abdominal exam: Present: soft, Non-Tender. Absent: tenderness, distention, guarding, rebound, rigidity - Extremities Exam Extremities exam: Present: normal inspection, full ROM. Absent: tenderness, pedal edema - Expanded Lower Extremity Exam Neurovascular/Tendon exam: Absent: motor deficit, sensory deficit, tendon deficit Gait: observed and normal - Back Exam Back exam: Present: normal inspection, full ROM. Absent: tenderness - Neurological Exam Neurological exam: Present: alert, oriented X3 - Psychiatric Psychiatric exam: Present: normal affect, normal mood - Skin Skin exam: Present: warm, dry, intact, normal color Course - Reevaluation(s) Reevaluation #1: Discussed with , admit. She'll with renal failure and dialysis comes in with shortness of breath appears to have some CHF also has in DKA with a glucose of 1495. Time: 11:19 - Consultations Consultation #1: Discussed with Dr. Lay nephrology he will evaluate the patient for possible dialysis. Time: 10:57 Consultation #2: Discussed with , admit. Time: 11:18 Consultation #3: Patient wears CPAP at home and is having shortness of breath she does have evidence of failure on her chest x-ray [place] start her on BiPAP. I did discuss that with Troy Trujillo. Time: 11:56 Vital Signs Temperature 97.5 F L 02/11/17 09:16 Pulse Rate 64 02/11/17 09:16 Respiratory Rate 20 02/11/17 09:16 Blood Pressure 198/89 02/11/17 09:16 O2 Sat by Pulse Oximetry 95 02/11/17 09:16 Temperature 97.5 F L 02/11/17 09:16 Pulse Rate 62 02/11/17 11:19 Respiratory Rate 20 02/11/17 11:19 Blood Pressure 163/74 02/11/17 11:19 O2 Sat by Pulse Oximetry 89 02/11/17 11:19 Oxygen Delivery Oxygen Delivery Venti Mask Shortness of Breath/Dyspnea - Lab Data Result diagrams: 02/11/17 09:59 02/11/17 09:32 Lab Results 02/11/17 02/11/17 02/11/17 Range/Units 09:32 09:32 09:32 WBC (4.3-11.1) K/mcL RBC (3.82-4.97) M/mcL Hgb (11.5-15.4) g/dL Hct (35.3-44.9) % MCV (83.0-100.0) fL MCH (28.0-33.3) pg MCHC (31.6-35.5) g/dL RDW (11.5-14.5) % Plt Count (140-400) K/mcL MPV (9.4-12.4) fL Immature Gran % (0-4) % Seg Neutrophils % % Lymphocytes % % Monocytes % % Eosinophils % % Basophils % % Neutrophils # (1.6-8.9) K/mcL Lymphocytes # (0.6-4.6) K/mcL Monocytes # (0.0-1.3) K/mcL Eosinophils # (0.0-0.6) K/mcL Basophils # (0.0-0.2) K/mcL Immature Plt Fraction (1.1-6.1) % Sodium 113 L* (136-145) mEq/L Potassium 5.5 H (3.5-4.5) mEq/L Chloride 77 L (98-109) mEq/L Carbon Dioxide 17 L (19-29) mEq/L BUN 55 H (7-20) mg/dL Creatinine 6.39 H (0.57-1.11) mg/dL Est GFR ( Amer) 8 L (> 60) Est GFR (Non-Af Amer) 6 L (> 60) BUN/Creatinine Ratio 9 (6-26) Glucose 1495 H* (70-99) mg/dL Calculated Osmolality 329 H (280-300) Lactic Acid 3.9 H (0.5-2.2) mmol/L Calcium 8.6 (8.6-10.8) mg/dL Troponin I 0.07 H* (0-0.03) ng/mL B-Natriuretic Peptide (0-100) pg/mL Beta-Hydroxybutyric Acd 1.35 H (0.02-0.27) mmol/L Specimen Rejected 02/11/17 02/11/17 02/11/17 Range/Units 09:32 09:46 09:59 WBC 10.3 (4.3-11.1) K/mcL RBC 3.31 L (3.82-4.97) M/mcL Hgb 11.1 L (11.5-15.4) g/dL Hct 36.4 (35.3-44.9) % MCV 110.0 H D (83.0-100.0) fL MCH 33.5 H (28.0-33.3) pg MCHC 30.5 L (31.6-35.5) g/dL RDW 14.8 H (11.5-14.5) % Plt Count 218 (140-400) K/mcL MPV 12.1 (9.4-12.4) fL Immature Gran % 0.3 (0-4) % Seg Neutrophils % 81.7 % Lymphocytes % 10.4 % Monocytes % 7.0 % Eosinophils % 0.0 % Basophils % 0.6 % Neutrophils # 8.4 (1.6-8.9) K/mcL Lymphocytes # 1.1 (0.6-4.6) K/mcL Monocytes # 0.7 (0.0-1.3) K/mcL Eosinophils # 0.0 (0.0-0.6) K/mcL Basophils # 0.1 (0.0-0.2) K/mcL Immature Plt Fraction 7.0 H (1.1-6.1) % Sodium (136-145) mEq/L Potassium (3.5-4.5) mEq/L Chloride (98-109) mEq/L Carbon Dioxide (19-29) mEq/L BUN (7-20) mg/dL Creatinine (0.57-1.11) mg/dL Est GFR ( Amer) (> 60) Est GFR (Non-Af Amer) (> 60) BUN/Creatinine Ratio (6-26) Glucose (70-99) mg/dL Calculated Osmolality (280-300) Lactic Acid (0.5-2.2) mmol/L Calcium (8.6-10.8) mg/dL Troponin I (0-0.03) ng/mL B-Natriuretic Peptide 3702 H (0-100) pg/mL Beta-Hydroxybutyric Acd (0.02-0.27) mmol/L Specimen Rejected MCV Delta - EKG Data EKG attestation: Yes I reviewed and interpreted this EKG. EKG shows normal: Reports: sinus rhythm Rate: Reports: normal Rhythm: Reports: NSR When compared to previous EKG there are: no significant changes (01/09/2017) Interpretation: Reports: no acute changes Critical Care Time Critical Care Time: Yes Total Critical Care Time: 30 Attestation: The high probability of a clinically significant, sudden or life threatening deterioration of the [endocrine, renal] system(s) required my full and direct attention, intervention and personal management. The aggregate critical care time was [30] minutes. This time is in addition to time spent performing reported procedures but includes the following: [x] Data Review and interpretation [x] Patient assessment and monitoring of vital signs [x] Documentation [x] Medication orders and management
[2017-02-11] MEDS ORDERED: Ondansetron 4 MG/2 ML VIAL IVP ONE (09:45)
[2017-02-11] MEDS ORDERED: *HR* Morphine 2 MG/ML SYRINGE IVP ONE ×2 (09:45→12:11)
[2017-02-11 09:53] LABS: Calcium 8.6 mg/dL (8.6-10.8); Potassium 5.5 mEq/L (3.5-4.5)
[2017-02-11 09:54] LABS: Beta-Hydroxybutyric Acid 1.35 mmol/L (0.02-0.27)
[2017-02-11] MEDS ORDERED: Insulin Human Regular 10 UNIT in 0.9 % Sodium Chloride 10 ML IV ONE (10:07)
[2017-02-11] MEDS ORDERED: *HR* Dextrose 50 % in Water (Syg) 50 ML SYRINGE IVP PRN ×2 (10:08→15:07)
[2017-02-11 10:09] LABS: Basophils # 0.1 K/mcL (0.0-0.2); Basophils % 0.6 %; Hematocrit 36.4 % (35.3-44.9); Hemoglobin 11.1 g/dL (11.5-15.4); Immature Granulocytes % 0.3 % (0-4); Lymphocytes # 1.1 K/mcL (0.6-4.6); Lymphocytes % 10.4 %; Mean Corpuscular HGB Conc 30.5 g/dL (31.6-35.5); Mean Corpuscular Hemoglobin 33.5 pg (28.0-33.3); Mean Platelet Volume 12.1 fL (9.4-12.4); Monocytes # 0.7 K/mcL (0.0-1.3); Neutrophils # 8.4 K/mcL (1.6-8.9); Platelet Count 218 K/mcL (140-400); Red Blood Count 3.31 M/mcL (3.82-4.97); Red Cell Distribution Width 14.8 % (11.5-14.5); Segmented Neutrophils % 81.7 %
[2017-02-11] MEDS ORDERED: Insulin Human Regular 100 UNIT in 0.9 % Sodium Chloride 100 ML IVC SCH ×2 (10:15→15:15)
--- NOTE | 2017-02-11 11:57 | Nephrology Consult Note ---
Date of Encounter: 02/11/17 Time of Encounter: 11:53 Assessment and Plan (1) ESRD (end stage renal disease) on dialysis Current Visit: No Status: Acute Will plan for HD again today Need strict I/Os Needs renal diet Avoid nephrotoxins if possible (2) Hyponatremia Current Visit: No Status: Acute (3) CHF (congestive heart failure) Current Visit: Yes Status: Acute per primary team Qualifiers: Congestive heart failure type: unspecified congestive heart failure type Congestive heart failure chronicity: acute Qualified Code(s): I50.9 - Heart failure, unspecified (4) DKA (diabetic ketoacidoses) Current Visit: Yes Status: Acute per primary team Qualifiers: Diabetes mellitus type: type 1 Diabetes mellitus complication detail: without coma Qualified Code(s): E10.10 - Type 1 diabetes mellitus with ketoacidosis without coma History of Present Illness - Reason for Consult Consult date: 02/11/17 - Chief Complaint CHF, ESRD on dialysis, DKA - History of Present Illness Ms Moffett is a 71 year old lady who is well known to our practice with a PMH of diabetes, ESRD on dialysis, hypertension, CAD, and thyroid disease who presents to the ED with shortness of breath. She did receive dialysis yesterday; fluid gain between treatments was 5.6 kilos but patient states she thought they had been able to remove 5 kilos. Patient is seen and evaluated while in the ED. She states her breathing is no better; glucose 1495, K+ 5.5, Na+ 113. Past Med Surg Social Fam HX - Past Medical History Medical history: diabetes, renal disease, hyperlipidemia, hypertension, thyroid disease, coronary artery disease, dialysis Psychiatric history: no psych history, anxiety, depression - Past Surgical History Surgical History: orthopedic, other, other, hysterectomy, vascular surgery - Social History Smoking Status: Never smoker Smokeless Tobacco Status: No Alcohol use: none Drug use: none - Family History Mother Living Status: Hx Family Cardiac Disorders: Yes Father Living Status: Hx Family Cancer: Yes (colon) Brother Living Status: Hx Family Cancer: Yes (colon) Sister Living Status: Hx Family Cancer: Yes (uterine) Medications and Allergies Levothyroxine Sodium [Synthroid] 200 mcg PO DAILY 02/08/16 [History] Polyethylene Glycol 3350 [MiraLAX] 17 gm PO DAILY PRN 02/08/16 [History] amLODIPine [Norvasc] 10 mg PO DAILY 02/14/16 [History] Aspirin [Lo-Dose Aspirin EC] 81 mg PO DAILY 05/26/16 [History] Atorvastatin [Lipitor] 40 mg PO DAILY 05/26/16 [History] Calcium Acetate [Phos-LO] 1,334 mg PO TIDWM 05/26/16 [History] Duloxetine HCl [Cymbalta] 30 mg PO DAILY 05/26/16 [History] Ergocalciferol (VITAMIN D2) [Vitamin D2] 50,000 unit PO WE 05/26/16 [History] Ezetimibe [Zetia] 10 mg PO DAILY 05/26/16 [History] Febuxostat [Uloric] 80 mg PO DAILY 05/26/16 [History] Furosemide [Lasix] 40 mg PO DAILY 05/26/16 [History] Gabapentin [Neurontin] 300 mg PO DAILY 05/26/16 [History] Hydralazine HCl 50 mg PO Q8H 05/26/16 [History] Isosorbide MONOnitrate (24 HR) [Imdur] 120 mg PO DAILY 05/26/16 [History] LORazepam [Ativan] 0.5 - 1 mg PO BID PRN 05/26/16 [History] Metoprolol XL (24 HR) Succ [Toprol Xl] 50 mg PO DAILY 05/26/16 [History] Renal Vitamin [Renal Caps Softgel] 1 mg PO DAILY 05/26/16 [History] Allopurinol [Zyloprim 300 MG] 300 mg PO DAILY 05/27/16 [History] Insulin LISPRO [HumaLOG] 0 units SQ DAILY PRN MDD 110 units daily 05/27/16 [ History] Meloxicam 15 mg PO DAILY 05/27/16 [History] Tramadol HCl [Ultram] 50 mg PO Q6HR PRN 08/11/16 [History] Cinacalcet [Sensipar] 30 mg PO DAILY 01/06/17 [History] Oxycodone HCl 10 mg PO TID PRN 01/06/17 [History] Insulin Glargine [Lantus] 10 unit SQ DAILY 02/11/17 [History] 3 Allergy/AdvReac Type Severity Reaction Status Date / Time IVP DYE Allergy See Uncoded 01/01/16 09:03 Comments ivp dye Allergy See Uncoded 05/27/16 08:00 Comments Review of Systems All Systems: reviewed and no additional remarkable complaints except as stated Constitutional: malaise, no chills, no fatigue Nose, mouth and throat: no dizziness Cardiovascular: dyspnea, dyspnea on exertion Respiratory: dyspnea, dyspnea on exertion Gastrointestinal: no vomiting Neurological: no behavioral changes Exam - Vital Signs Vital signs: Initial Vital Signs Temp Pulse Resp BP Pulse Ox 97.5 F L 64 20 198/89 95 02/11/17 09:16 02/11/17 09:16 02/11/17 09:16 02/11/17 09:16 02/11/17 09:16 Vital Signs - Last 8 Hours Temp Pulse Resp BP Pulse Ox 02/11/17 11:19 62 20 163/74 89 02/11/17 10:33 89 02/11/17 10:31 64 22 165/70 85 02/11/17 10:05 64 20 177/73 91 02/11/17 09:38 96 02/11/17 09:34 16 94 02/11/17 09:16 97.5 F L 64 20 198/89 95 Intake and Output 02/10/17 02/11/17 02/11/17 23:59 07:59 15:59 Other: Weight 73.028 kg Patient Weight 02/11/17 23:59 Weight 73.028 kg - General Appearance General appearance: well-developed, well-nourished, obese EENT: ATNC, hearing intact, vision intact Respiratory: clear (decreased throughout; currently on O2 via facemask) Cardiology: no edema, normal S1, normal S2 - Dialysis Access Dialysis Vascular Access: Arteriovenous Fistula Gastrointestinal: no tenderness, no guarding, obese Integumentary: warm and dry Neurologic: alert and oriented x3 Psychiatric: mood/affect appropriate, cooperative Results - Lab Results 02/11/17 09:59 02/11/17 09:32 Most recent lab results Calcium 8.6 mg/dL (8.6-10.8) 02/11/17 09:32 Consult Discharge Plan - Plan Referrals: Hugo Mercedes MD [Primary Care Provider] -
[2017-02-11] MEDS ORDERED: Nitroglycerin 1 INCH/GM PACKET TP ONE (12:05)
[2017-02-11] MEDS ORDERED: *HR* LORazepam 2 MG/ML VIAL IVP ONE (12:24)
[2017-02-11 12:36] LABS: Hepatitis B Surface Antigen Nonreactive (Nonreactive)
[2017-02-11] MEDS ORDERED: Naloxone 0.4 MG/ML INJ IVP PRN (13:02)
[2017-02-11] MEDS ORDERED: Albuterol 2.5 MG/3 ML NEBULIZER IH PRN (13:06)
[2017-02-11] MEDS ORDERED: Ipratropium/Albuterol Neb 3 ML IH SCH (13:15)
[2017-02-11] MEDS ORDERED: Furosemide 40 MG/4 ML VIAL IVP ONE (13:16)
[2017-02-11] MEDS ORDERED: *HR* LORazepam 0.5 MG TABLET PO PRN (13:33)
[2017-02-11] MEDS ORDERED: 0.9 % Sodium Chloride 250 ML IVC PRN (13:46)
--- NOTE | 2017-02-11 13:51 | Internal Med History&Physical ---
Date of Encounter: 02/11/17 Time of Encounter: 13:42 Assessment and Plan (1) CHF exacerbation Current visit: Yes Status: Acute 1 echo completed 01/2015: Normal LV systolic function, LVEF 60%. Mild concentric left ventricular hypertrophy. Moderate left ventricular diastolic dysfunction. Mildly dilated right ventricle with normal systolic function. Moderately dilated left atrium. Mildly dilated right atrium. Mild mitral regurgitation. Mild tricuspid regurgitation. Moderate pulmonary hypertension. Estimated RVSP = 51 mmHg. 2 we will continue with Lasix, nitroglycerin and morphine as needed 3 continue with BiPAP to maintain SPO2 greater than 92% 4 patient will be dialyzed today per nephrology 5 continuous cardiac monitoring 6 monitor intake and output daily weight 7. 1500 mL fluid restriction 8 we will check echo Qualifiers: Congestive heart failure type: diastolic Qualified Code(s): I50.33 - Acute on chronic diastolic (congestive) heart failure (2) DKA (diabetic ketoacidoses) Current visit: Yes Status: Acute 1 patient does have a history of diabetes and is on insulin pump. Blood sugar on presentation was 1495. States she has been compliant with her medications. Beta hydroxylate 1.35 potassium 5.5 sodium 113 lactate was 3.9 she is on insulin pump which we will stop for now We will initiate DKA protocol. Presently on insulin drip. We will monitor blood sugars closely and blood sugar drops more than 200 points in hour we will stop drip. If blood sugars are less than 250 we will stop drip. 2 we will obtain a VBG 3 nothing by mouth for now 4 community health educator consult 5 hemoglobin A1c in a.m. Qualifiers: Diabetes mellitus type: type 1 Diabetes mellitus complication detail: without coma Qualified Code(s): E10.10 - Type 1 diabetes mellitus with ketoacidosis without coma (3) Acute respiratory failure with hypoxia Current visit: No Status: Acute 1 she did have difficulty breathing this morning she has history of COPD as well as end-stage renal disease. BNP was over 3000 suspect this is related to fluid overload and SPO2 was 80% we will continue with BiPAP titrated to maintain SPO2 greater than 92% continue with nitroglycerin morphine as needed patient will be dialyzed today per nephrology (4) ROMA (obstructive sleep apnea) Current visit: No Status: Acute (5) ESRD (end stage renal disease) on dialysis Current visit: No Status: Acute 1 nephrology has been consulted patient will be dialyzed today 2 monitor intake and output daily weights 3 avoid nephrotoxins (6) Hypertension Current visit: No Status: Chronic We will continue with home medications Norvasc hydralazine and Lasix Qualifiers: Hypertension type: essential hypertension Qualified Code(s): I10 - Essential (primary) hypertension (7) Elevated troponin I level Current visit: No Status: Acute 1 most likely related to CHF exacerbation and end-stage renal disease. However we will continue to trend troponins (8) DVT prophylaxis Current visit: No Status: Acute Heparin subcutaneous twice a day Internal Medicine - H&P: HPI Chief complaint: SOB Admitted From: Emergency Dept Plans for Post Hospital Care: Home History of present illness: Ms. Moffett is a 71 year old female Ms. Moffett is a 71 year old female past medical history diabetes end stage renal disease dialysis Fridays osteomyelitis of vertebral lumbar region hypertension obstructive sleep apnea on CPAP COPD oxygen dependent. According to the patient she woke this morning experiencing increasing shortness of breath. EMS were notified upon arrival Spo2 was at 80%. Patient does have end-stage renal disease she was dialyzed on Friday and had approximately 5 L removed. Apparently she had had a 5-1/2 pound weight gain from Friday to Friday. She states she has been compliant with medications. She does admit to some nausea over the weekend however no fevers chills vomiting or diarrhea. She denies any cough congestion , however admits to occasional chest tightness She was brought to the ER for evaluation. According to ER records upon arrival patient was given duo nebs. Upper was obtained which did reveal hyponatremia as well as hyperkalemia and DKA blood sugar over 1000. BNP was over 3000 lactate was 3. Chest x-ray was indicative of vascular congestion. She was given nitroglycerin as well as morphine she was also placed on BiPAP which did improve her respiratory state. She was started on insulin drip Nephrology has been consulted and did see the patient in the emergency room. Patient will be dialyzed again today. She has been admitted for further workup and evaluation. Presently patient is on BiPAP setting at around 96%. Her lung sounds are clear at this time heart sounds are regular with S1-S2 no rubs clicks gallops murmurs noted abdomen is soft and nontender. There is no lower extremity edema noted. Presently she is hemodynamically stable. I did review this case with Dr. Lopez who agrees with plan. Past Med Surg Social Fam HX - Past Medical History Medical history: diabetes, renal disease, hyperlipidemia, hypertension, thyroid disease, coronary artery disease, dialysis Psychiatric history: no psych history, anxiety, depression - Past Surgical History Surgical History: orthopedic, other, other, hysterectomy, vascular surgery - Social History Smoking Status: Never smoker Smokeless Tobacco Status: No Alcohol use: none Drug use: none - Family History Mother Living Status: Hx Family Cardiac Disorders: Yes Father Living Status: Hx Family Cancer: Yes (colon) Brother Living Status: Hx Family Cancer: Yes (colon) Sister Living Status: Hx Family Cancer: Yes (uterine) Internal Medicine - H&P: Meds Levothyroxine Sodium [Synthroid] 200 mcg PO DAILY 02/08/16 [History] Polyethylene Glycol 3350 [MiraLAX] 17 gm PO DAILY PRN 02/08/16 [History] amLODIPine [Norvasc] 10 mg PO DAILY 02/14/16 [History] Aspirin [Lo-Dose Aspirin EC] 81 mg PO DAILY 05/26/16 [History] Atorvastatin [Lipitor] 40 mg PO DAILY 05/26/16 [History] Calcium Acetate [Phos-LO] 1,334 mg PO TIDWM 05/26/16 [History] Duloxetine HCl [Cymbalta] 30 mg PO DAILY 05/26/16 [History] Ergocalciferol (VITAMIN D2) [Vitamin D2] 50,000 unit PO WE 05/26/16 [History] Ezetimibe [Zetia] 10 mg PO DAILY 05/26/16 [History] Febuxostat [Uloric] 80 mg PO DAILY 05/26/16 [History] Furosemide [Lasix] 40 mg PO DAILY 05/26/16 [History] Gabapentin [Neurontin] 300 mg PO DAILY 05/26/16 [History] Hydralazine HCl 50 mg PO Q8H 05/26/16 [History] Isosorbide MONOnitrate (24 HR) [Imdur] 120 mg PO DAILY 05/26/16 [History] LORazepam [Ativan] 0.5 - 1 mg PO BID PRN 05/26/16 [History] Metoprolol XL (24 HR) Succ [Toprol Xl] 50 mg PO DAILY 05/26/16 [History] Renal Vitamin [Renal Caps Softgel] 1 mg PO DAILY 05/26/16 [History] Allopurinol [Zyloprim 300 MG] 300 mg PO DAILY 05/27/16 [History] Insulin LISPRO [HumaLOG] 0 units SQ DAILY PRN MDD 110 units daily 05/27/16 [ History] Meloxicam 15 mg PO DAILY 05/27/16 [History] Tramadol HCl [Ultram] 50 mg PO Q6HR PRN 08/11/16 [History] Cinacalcet [Sensipar] 30 mg PO DAILY 01/06/17 [History] Oxycodone HCl 10 mg PO TID PRN 01/06/17 [History] Insulin Glargine [Lantus] 10 unit SQ DAILY 02/11/17 [History] 3 Allergy/AdvReac Type Severity Reaction Status Date / Time IVP DYE Allergy See Uncoded 01/01/16 09:03 Comments ivp dye Allergy See Uncoded 05/27/16 08:00 Comments All Systems PM: A 10-system review of systems was performed and is negative for pertinent findings except as documented above in the HPI. - Constitutional Constitutional: as per HPI - EENT Eyes: no change in vision, no discharge, no pain, no photophobia Nose, mouth and throat: no dysphagia, no nasal discharge, no neck pain, no sore throat - Cardiovascular Cardiovascular ROS IM: chest pain - Respiratory Respiratory: dyspnea - Gastrointestinal Gastrointestinal: nausea - Genitourinary Genitourinary: no change in urinary stream, no dysuria, no flank pain, no hematuria - Musculoskeletal Musculoskeletal ROS IM: no numbness, no tingling - Integumentary Integumentary IM: no rash, no unusual bruising - Neurological Neurological ROS: no confusion, no convulsions, no focal weakness, no numbness, no tingling, no tremor(s) - Hematologic/Lymphatic Hematologic/Lymphatic: no easy bruising - Constitutional Vitals: Temp Pulse Resp BP Pulse Ox 97.5 F L 66 20 187/84 99 02/11/17 09:16 02/11/17 12:21 02/11/17 12:21 02/11/17 12:21 02/11/17 12:21 General appearance: Present: A&O X 3, answers questions appropriately - Head Head exam: Present: atraumatic, normocephalic - Eye Eye exam: Present: PERRL, conjuntiva pink, sclera anicteric Pupils: Present: PERRL - Neck Neck exam general surgery: Present: supple, trachea midline. Absent: lymphadenopathy - Respiratory Respiratory exam: Present: CTAB. Absent: accessory muscle use, rales, rhonchi, wheezes - Cardiovascular Cardiovascular exam: Present: RRR, +S1, +S2. Absent: diastolic murmur, gallop, rubs, systolic murmur - GI/Abdominal GI/Abdominal exam: Present: normal bowel sounds, soft, no peritoneal signs. Absent: distended, tenderness - Extremities Exam Extremities exam: Present: warm, radial pulses palpable and symmetrical. Absent : calf tenderness, cyanotic, pedal edema - Neurological Exam Neurological exam: Present: CN II-XII intact, oriented X3, no focal deficits. Absent: pronater drift, facial droop, speech deficit - Skin Skin exam: Present: dry, intact Internal Med - H&P Results - Labs CBC & Chem 7: 02/11/17 09:59 02/11/17 12:36 Labs: Short CBC 02/11/17 Range/Units 09:59 WBC 10.3 (4.3-11.1) K/mcL Hgb 11.1 L (11.5-15.4) g/dL Hct 36.4 (35.3-44.9) % Plt Count 218 (140-400) K/mcL Neutrophils # 8.4 (1.6-8.9) K/mcL BMP 02/11/17 02/11/17 09:32 12:36 Sodium 113 L* Potassium 5.5 H Chloride 77 L Carbon Dioxide 17 L BUN 55 H Creatinine 6.39 H Glucose 1495 H* 1307 H* Calcium 8.6 Cardiac Enzymes 02/11/17 Range/Units 09:32 Troponin I 0.07 H* (0-0.03) ng/mL - EKG Data Rate: tachycardia - EKG Data Prior EKG available for review: yes When compared to previous EKG: there is no significant change - Impressions ITS Impressions Chest X-Ray 02/11/17 09:16 IMPRESSION: 1. Moderate congestive heart failure with worsening bibasilar opacities and bilateral effusions. D/ 02/11/2017 10:05:14 Carol Guan MD / basilia Interpreting Provider: Carol Guan MD - Diagnostic Studies Chest x-ray Additional comments: Chest X-Ray 02/11/17 09:16 IMPRESSION: 1. Moderate congestive heart failure with worsening bibasilar opacities and bilateral effusions. D/ /11/2017 10:05:14 Carol Guan MD / basilia Interpreting Provider: Carol Guan MD
[2017-02-11] MEDS ORDERED: 0.9 % Sodium Chloride 1,000 ML PRIME SCH (14:00)
[2017-02-11 14:09] LABS: VBG HCO3 17 mEq/L (21-27); VBG PCO2 38 mmHg (41-51); VBG PH 7.25 pH Units (7.32-7.42); VBG PO2 207 mmHg (25-50)
[2017-02-11] MEDS ORDERED: Insulin Regular, Human 100 UNIT/ML IV PRN (15:07)
[2017-02-11 15:48] LABS: Calcium 8.9 mg/dL (8.6-10.8); Potassium 5.3 mEq/L (3.5-4.5)
[2017-02-11] MEDS: hydrALAZINE 25 MG TABLET PO SCH ×2 (16:00→21:55)
[2017-02-11] MEDS: Ipratropium/Albuterol Neb 3 ML IH SCH ×3 (16:21→23:57)
[2017-02-11] MEDS: *HR* OxyCODONE Immed Rel 5 MG TABLET PO PRN ×2 (17:29→21:55)
[2017-02-11] MEDS: Calcium Acetate 667 MG CAPSULE PO SCH (17:29)
[2017-02-11 20:01] LABS: Calcium 9.4 mg/dL (8.6-10.8)
--- NOTE | 2017-02-11 20:28 | Event Note ---
Date of Encounter: 02/11/17 Time of Encounter: 20:25 I independently obtained history and examined this patient and my medical decision-making was reviewed with the nurse practitioner. I agree with the documented findings, disposition and treatment plan as described. My findings are summarized below: She is awake alert and oriented. Heart exam is regular. Lungs are diminished at both bases Plan: Patient is being admitted for DKA, fluid overload and acute hypoxic respiratory failure. Due to multiple admissions for fluid overload and uncontrolled diabetes I question her capacity to comply with her insulin pump regimen and dietary restrictions. We will continue with insulin drip per DKA protocol. Given her history of quick response to IV insulin on previous admissions I will hold insulin if there is a drop of more than 200 mg/dL per hour or blood glucose drops below 250. Consult nephrology. Hemodialysis today. She is at high risk for morbidity, mortality and complications due to insulin drip which requires hourly blood glucose level monitoring and history of severe and rapid drop in blood glucose while previously on insulin drip. Teodoro Lopez MD
[2017-02-11] MEDS: *HR* Heparin 5,000 UNIT/ML VIAL SQ SCH (21:55)
[2017-02-11 22:23] LABS: VBG HCO3 24 mEq/L (21-27); VBG PCO2 43 mmHg (41-51); VBG PH 7.34 pH Units (7.32-7.42); VBG PO2 116 mmHg (25-50)
[2017-02-11 23:22] LABS: Calcium 9.4 mg/dL (8.6-10.8); Potassium 4.1 mEq/L (3.5-4.5)
[2017-02-12 02:08] LABS: Magnesium 1.7 mg/dL (1.6-2.6)
[2017-02-12] MEDS ORDERED: 0.9 % Sodium Chloride 250 ML ONE (02:33)
[2017-02-12 02:35] LABS: Calcium 9.1 mg/dL (8.6-10.8); Potassium 3.3 mEq/L (3.5-4.5)
[2017-02-12] MEDS ORDERED: Magnesium Sulfate 2 GM in D5% in Water 100 ML IVPB ONE (02:54)
[2017-02-12] MEDS: Ipratropium/Albuterol Neb 3 ML IH SCH ×5 (04:28→21:23)
[2017-02-12 04:58] LABS: Basophils % 0.2 %; Eosinophils % 0.1 %; Hemoglobin 10.4 g/dL (11.5-15.4); Immature Granulocytes % 0.4 % (0-4); Lymphocytes # 2.5 K/mcL (0.6-4.6); Lymphocytes % 14.4 %; Mean Corpuscular HGB Conc 35.9 g/dL (31.6-35.5); Mean Corpuscular Hemoglobin 33.7 pg (28.0-33.3); Mean Platelet Volume 10.9 fL (9.4-12.4); Monocytes # 1.9 K/mcL (0.0-1.3); Monocytes % 11.1 %; Neutrophils # 12.6 K/mcL (1.6-8.9); Platelet Count 250 K/mcL (140-400); Red Blood Count 3.09 M/mcL (3.82-4.97); Red Cell Distribution Width 13.8 % (11.5-14.5); Segmented Neutrophils % 73.8 %
[2017-02-12 05:06] LABS: Mean Corpuscular Volume 93.9 fL (83.0-100.0)
[2017-02-12] MEDS: *HR* Heparin 5,000 UNIT/ML VIAL SQ SCH (05:56)
[2017-02-12] MEDS: hydrALAZINE 25 MG TABLET PO SCH ×3 (05:56→20:55)
[2017-02-12 06:24] LABS: Magnesium 2.1 mg/dL (1.6-2.6); Potassium 4.2 mEq/L (3.5-4.5)
[2017-02-12] MEDS ORDERED: 0.9 % Sodium Chloride 250 ML IVC PRN (06:57)
[2017-02-12] MEDS ORDERED: 0.9 % Sodium Chloride 1,000 ML PRIME SCH (07:00)
--- NOTE | 2017-02-12 07:00 | Event Note ---
Date of Encounter: 02/12/17 Time of Encounter: 05:20 Cardiac Enzymes 02/11/17 02/11/17 02/11/17 Range/Units 09:32 09:32 15:19 Troponin I 0.07 H* 0.08 H* (0-0.03) ng/mL B-Natriuretic Peptide 3702 H (0-100) pg/mL 02/11/17 02/12/17 Range/Units 22:07 04:40 Troponin I 0.12 H* 0.14 H* (0-0.03) ng/mL B-Natriuretic Peptide (0-100) pg/mL Patient with ESRD on HD, CHF and DKA with slowly increasing troponin levels during the night from 0.07 to 0.14. Patient reports unchanged substernal chest pain for the past 4 months since "something pupped in my chest during physical therapy". She is resting in bed comfortably in no acute distress, denies SOB, N/ V, or worsening of chronic chest discomfort. EKG revealed sinus tachycardia without SVT, LVH, and mild ST depression in lead V4. SVT resolved spontaneously without treatment. Given current ESRD on HD and CHF, will continue to trend troponin, telemetry monitoring, and start Heparin drip. Recommend cardiology consultation.
[2017-02-12] MEDS ORDERED: *HR* Heparin 5,000 UNIT/ML VIAL IVP ONE (07:01)
[2017-02-12] MEDS ORDERED: *HR* Heparin 5,000 UNIT/ML VIAL IVP PRN (07:01)
[2017-02-12] MEDS ORDERED: 0.9 % Sodium Chloride 1,000 ML ONE (07:58)
[2017-02-12] MEDS: Gabapentin 300 MG CAPSULE PO SCH (08:16)
[2017-02-12] MEDS: Furosemide 40 MG TABLET PO SCH (08:16)
[2017-02-12] MEDS: Aspirin Enteric Coated 81 MG Tablet PO SCH (08:16)
[2017-02-12] MEDS: Calcium Acetate 667 MG CAPSULE PO SCH ×3 (08:17→17:13)
[2017-02-12] MEDS: Renal Vitamin 1 MG CAPSULE PO SCH (08:17)
[2017-02-12] MEDS: Cholecalciferol (D-3) 1,000 UNIT TABLET PO SCH (08:17)
[2017-02-12] MEDS: Febuxostat [Uloric] 80 MG PO SCH (08:18)
[2017-02-12] MEDS: Pantoprazole 40 MG VIAL IVP SCH (08:18)
[2017-02-12] MEDS: Heparin 25,000 UNIT/500 ML D5W 25,000 UNIT/500 ML MLS IVC SCH (08:34)
[2017-02-12] MEDS ORDERED: Metoprolol XL (24 HR) Succ 50 MG TAB.ER.24H PO SCH (09:00)
[2017-02-12] MEDS: Ondansetron 4 MG/2 ML VIAL IVP PRN (09:42)
[2017-02-12] MEDS ORDERED: Insulin DETEMIR 100 UNIT/ML X5UNITS SQ ONE (11:26)
[2017-02-12] MEDS ORDERED: D5% in Water 1,000 ML IVC PRN (11:29)
[2017-02-12] MEDS ORDERED: Dextrose Gel 15 GM PO PRN ×2 (11:29)
[2017-02-12 11:49] LABS: Hepatitis B Surface Antibody 7.84 mIU/mL
--- NOTE | 2017-02-12 11:50 | Cardiology Consult Note ---
Date of Encounter: 02/12/17 Time of Encounter: 11:20 Assessment and Plan (1) Chest pain Current Visit: Yes Status: Acute Typical chest pain may be secondary to acute diastolic CF. Noted to have mild troponin elevation up to 0.14 in the setting of acute CHF, COPD, and CKD. Noted to have EKG changes yesterday concerning for ischemia. Known CAD. Last LHC 03/2015 showed 99% stenosis in the distal Lcx artery. There was 50% stenosis in the mLAD. Mild disease otherwise. Check TTE. Continue asa, statin, and bb. Start imdur. I discussed LHC vs medical management and she prefers medical management at this time. Currently pain free. Qualifiers: Chest pain type: unspecified Qualified Code(s): R07.9 - Chest pain, unspecified (2) CHF (congestive heart failure) Current Visit: Yes Status: Acute Fluid overload on exam. H/o diastolic CHF. Acute on chronic CHFpEF. BNP 3702. CXR shows moderate CHF. On dialysis. Fluid removal per nephrology. Low sodium diet. Strict I&O and daily weights. Qualifiers: Congestive heart failure type: unspecified congestive heart failure type Congestive heart failure chronicity: acute Qualified Code(s): I50.9 - Heart failure, unspecified (3) Elevated troponin Current Visit: No Status: Acute See plan above. Discussion w patient/family: The assessment and plan as outlined above was discussed with the patient and/or family members who expressed understanding and agreement. All questions were answered. Thank you for involving us in the care of your patient. Please call with any questions. History of Present Illness Consult date: 02/12/17 Requesting physician: Prisca Cano Consult reason: Elevated troponin Chief complaint: chest pain History of present illness: Ms. Moffett is a 71 year old female with a history of CAD, ESRD on dialysis, diastolic CHF, HTN, HLD, and DM who presented withe the c/o chest pain and SOB. SHe c/o midstaernal chest pain radiating to her right chest that increases with activity. Her pain was associated with SOB. Yesterday she developed sudden SOB and chest pain. EKG was taken and showed sinus tachycardia with ST depression in the anterolateral leads. NTG paste was placed on her and her symptoms improved.She was found to have worsening CHF with bibasilar opacities and bilateral pleural effusions on CXR. BNP 3702. Troponin elevated up to 0.14. She is currently having fluid removed with dialysis. Previous cardiac testing: TTE 01/04/15- EF 60%, moderate diastolic dysfunction. Mild MR, Mild TR. LHC 03/23/15: 30% stenosis in the LMCA, 50% stenosis in the mLAD, 25% stenosis pLCX, 99 % stenosis in the distal LCX artery (small vessel), 20% stenosis pRCA, 30% stenosis mRCA. T Past Med Surg Social Fam HX - Past Medical History Medical history: diabetes, renal disease, hyperlipidemia, hypertension, thyroid disease, coronary artery disease, dialysis Psychiatric history: no psych history, anxiety, depression - Past Surgical History Surgical History: orthopedic, other, other, hysterectomy, vascular surgery - Social History Smoking Status: Never smoker Smokeless Tobacco Status: No Alcohol use: none Drug use: none - Family History Mother Living Status: Hx Family Cardiac Disorders: Yes Father Living Status: Hx Family Cancer: Yes (colon) Brother Living Status: Hx Family Cancer: Yes (colon) Sister Living Status: Hx Family Cancer: Yes (uterine) Medications and Allergies Levothyroxine Sodium [Synthroid] 200 mcg PO DAILY 02/08/16 [History] Polyethylene Glycol 3350 [MiraLAX] 17 gm PO DAILY PRN 02/08/16 [History] amLODIPine [Norvasc] 10 mg PO DAILY 02/14/16 [History] Aspirin [Lo-Dose Aspirin EC] 81 mg PO DAILY 05/26/16 [History] Atorvastatin [Lipitor] 40 mg PO DAILY 05/26/16 [History] Calcium Acetate [Phos-LO] 1,334 mg PO TIDWM 05/26/16 [History] Duloxetine HCl [Cymbalta] 30 mg PO DAILY 05/26/16 [History] Ergocalciferol (VITAMIN D2) [Vitamin D2] 50,000 unit PO WE 05/26/16 [History] Ezetimibe [Zetia] 10 mg PO DAILY 05/26/16 [History] Febuxostat [Uloric] 80 mg PO DAILY 05/26/16 [History] Furosemide [Lasix] 40 mg PO DAILY 05/26/16 [History] Gabapentin [Neurontin] 300 mg PO DAILY 05/26/16 [History] Hydralazine HCl 50 mg PO Q8H 05/26/16 [History] Isosorbide MONOnitrate (24 HR) [Imdur] 120 mg PO DAILY 05/26/16 [History] LORazepam [Ativan] 0.5 - 1 mg PO BID PRN 05/26/16 [History] Metoprolol XL (24 HR) Succ [Toprol Xl] 50 mg PO DAILY 05/26/16 [History] Renal Vitamin [Renal Caps Softgel] 1 mg PO DAILY 05/26/16 [History] Allopurinol [Zyloprim 300 MG] 300 mg PO DAILY 05/27/16 [History] Insulin LISPRO [HumaLOG] 0 units SQ DAILY PRN MDD 110 units daily 05/27/16 [ History] Meloxicam 15 mg PO DAILY 05/27/16 [History] Tramadol HCl [Ultram] 50 mg PO Q6HR PRN 08/11/16 [History] Cinacalcet [Sensipar] 30 mg PO DAILY 01/06/17 [History] Oxycodone HCl 10 mg PO TID PRN 01/06/17 [History] Insulin Glargine [Lantus] 10 unit SQ DAILY 02/11/17 [History] 3 Allergy/AdvReac Type Severity Reaction Status Date / Time IVP DYE Allergy See Uncoded 01/01/16 09:03 Comments ivp dye Allergy See Uncoded 05/27/16 08:00 Comments All Systems Review: A 10-system review of systems was performed and is negative for pertinent findings except as documented above in the HPI. Physical Examination Vital Signs, Last 4 Hours Temp Resp BP 02/12/17 11:05 132/52 02/12/17 10:35 143/68 02/12/17 10:05 147/68 02/12/17 09:35 171/77 02/12/17 09:05 97.8 F 18 153/73 General: Conversant, No Apparent Distress HEENT: Atraumatic, Normocephaly, Mucus Membranes Moist Neck: No JVD, Normal carotid pulses Cardiac: Reg Rate and Rhythm, Normal S1 and S2, No Murmur Lungs: Normal Breath Sounds, No Wheeze, Rales, Rhonchi Neuro: Alert and responsive, No focal deficits noted Abdomen: Soft, Non-Tender Skin: No rashes noted on visualized skin Musculoskeletal: No Chest Wall Tenderness Extremities: No Clubbing, No Cyanosis, Normal Pulses, Other (Trace BLE edema) Results 02/12/17 04:40 02/12/17 05:55 Lab Results 02/11/17 02/11/17 02/11/17 15:19 15:19 19:35 WBC Hgb Hct Plt Count Sodium 117 L* 128 L D Potassium 5.3 H 4.0 D Chloride 81 L 88 L Carbon Dioxide 17 L 25 BUN 57 H 36 H D Creatinine 6.54 H 4.66 H Glucose 1073 H* 471 H Calcium 8.9 9.4 Magnesium Troponin I 0.08 H* 02/11/17 02/11/17 02/12/17 22:07 22:07 02:16 WBC Hgb Hct Plt Count Sodium 128 L 129 L Potassium 4.1 3.3 L Chloride 88 L 90 L Carbon Dioxide 20 23 BUN 38 H 40 H Creatinine 4.90 H 5.06 H Glucose 458 H 278 H Calcium 9.4 9.1 Magnesium 1.7 Troponin I 0.12 H* 02/12/17 02/12/17 02/12/17 04:40 04:40 05:55 WBC 17.1 H D Hgb 10.4 L Hct 29.0 L Plt Count 250 Sodium 129 L Potassium 4.2 Chloride 90 L Carbon Dioxide 26 BUN 41 H Creatinine 5.04 H Glucose 147 H Calcium 9.0 Magnesium 2.1 Troponin I 0.14 H* - Imaging and Cardiology Echo: pending, report reviewed Cardiac cath: report reviewed - EKG Interpretation EKG results cardiology: personally reviewed Consult Discharge Plan - Plan Referrals: Hugo Mercedes MD [Primary Care Provider] -
--- NOTE | 2017-02-12 12:36 | Electrocardiograph Report ---
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
[2017-02-12] MEDS: Insulin LISPRO 300 UNITS/3 ML VIAL SQ SCH ×3 (12:54→20:56)
[2017-02-12] MEDS: amLODIPine 5 MG TABLET PO SCH (13:47)
[2017-02-12] MEDS: Isosorbide MONOnitrate (24 HR) 60 MG TAB.ER.24H PO SCH (13:47)
[2017-02-12] MEDS: Metoprolol XL (24 HR) Succ 50 MG TAB.ER.24H PO SCH (13:48)
[2017-02-12] MEDS: *HR* Heparin 5,000 UNIT/ML VIAL IVP PRN ×2 (16:06→22:09)
--- NOTE | 2017-02-12 19:06 | Internal Med Progress Note ---
Date of Encounter: 02/12/17 Time of Encounter: 11:00 - Assessment and plan (1) DKA (diabetic ketoacidoses) Current Visit: Yes Status: Resolved Assessment and plan: Drip was discontinued after starting patient on basal insulin Qualifiers: Diabetes mellitus type: type 1 Diabetes mellitus complication detail: without coma Qualified Code(s): E10.10 - Type 1 diabetes mellitus with ketoacidosis without coma (2) ESRD (end stage renal disease) on dialysis Current Visit: No Status: Acute Assessment and plan: hemodialysis managed by nephrology (3) Anemia in ESRD (end-stage renal disease) Current Visit: No Status: Chronic Assessment and plan: Secondary to the above we will continue to monitor (4) Hypertension Current Visit: No Status: Chronic Assessment and plan: Home medications Qualifiers: Hypertension type: essential hypertension Qualified Code(s): I10 - Essential (primary) hypertension (5) Elevated troponin Current Visit: No Status: Acute Assessment and plan: Cardiology following and discussed with patient and agrees with medical management Echo pending. Continue asa, statin, BB. Imdur will be started. Heparin gtt can be stopped after 48h. - Subjective Interval history: Patient was resting comfortably on dialysis this morning. - Constitutional Vitals: Temp Pulse Resp BP Pulse Ox 98.8 F 93 15 101/57 96 02/12/17 16:00 02/12/17 16:00 02/12/17 16:25 02/12/17 16:00 02/12/17 16:25 General appearance: Present: A&O X 3, answers questions appropriately - Cardiovascular Cardiovascular exam: Present: RRR, +S1, +S2. Absent: diastolic murmur, gallop, rubs, systolic murmur Internal Medicine: Result - Labs CBC & Chem 7: 02/12/17 04:40 02/12/17 05:55 Labs: Short CBC 02/12/17 Range/Units 04:40 WBC 17.1 H D (4.3-11.1) K/mcL Hgb 10.4 L (11.5-15.4) g/dL Hct 29.0 L (35.3-44.9) % Plt Count 250 (140-400) K/mcL Neutrophils # 12.6 H (1.6-8.9) K/mcL BMP 02/11/17 02/11/17 02/12/17 19:35 22:07 02:16 Sodium 128 L D 128 L 129 L Potassium 4.0 D 4.1 3.3 L Chloride 88 L 88 L 90 L Carbon Dioxide 25 20 23 BUN 36 H D 38 H 40 H Creatinine 4.66 H 4.90 H 5.06 H Glucose 471 H 458 H 278 H Calcium 9.4 9.4 9.1 02/12/17 05:55 Sodium 129 L Potassium 4.2 Chloride 90 L Carbon Dioxide 26 BUN 41 H Creatinine 5.04 H Glucose 147 H Calcium 9.0 Cardiac Enzymes 02/11/17 02/12/17 02/12/17 Range/Units 22:07 04:40 15:17 Troponin I 0.12 H* 0.14 H* 0.11 H* (0-0.03) ng/mL Consult Discharge Plan - Plan Referrals: Hugo Mercedes MD [Primary Care Provider] -
[2017-02-12 19:36] LABS: Hemoglobin A1C 11.1 %
--- NOTE | 2017-02-12 20:23 | Electrocardiograph Report ---
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
--- NOTE | 2017-02-12 20:28 | Electrocardiograph Report ---
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
[2017-02-13] MEDS: Ipratropium/Albuterol Neb 3 ML IH SCH ×7 (04:18→23:06)
[2017-02-13] MEDS: hydrALAZINE 25 MG TABLET PO SCH ×3 (06:19→20:49)
[2017-02-13] MEDS: Insulin LISPRO 300 UNITS/3 ML VIAL SQ SCH ×5 (07:42→20:49)
[2017-02-13 08:07] LABS: Basophils % 0.3 %; Eosinophils # 0.2 K/mcL (0.0-0.6); Eosinophils % 1.3 %; Hematocrit 28.8 % (35.3-44.9); Immature Granulocytes % 0.3 % (0-4); Lymphocytes # 2.3 K/mcL (0.6-4.6); Lymphocytes % 19.2 %; Mean Corpuscular HGB Conc 34.7 g/dL (31.6-35.5); Mean Corpuscular Hemoglobin 33.4 pg (28.0-33.3); Mean Corpuscular Volume 96.3 fL (83.0-100.0); Mean Platelet Volume 11.5 fL (9.4-12.4); Monocytes # 1.1 K/mcL (0.0-1.3); Monocytes % 9.5 %; Neutrophils # 8.3 K/mcL (1.6-8.9); Platelet Count 189 K/mcL (140-400); Red Blood Count 2.99 M/mcL (3.82-4.97); Red Cell Distribution Width 14.6 % (11.5-14.5); Segmented Neutrophils % 69.4 %
[2017-02-13 08:20] LABS: Calcium 8.1 mg/dL (8.6-10.8); Potassium 4.8 mEq/L (3.5-4.5)
[2017-02-13] MEDS: Calcium Acetate 667 MG CAPSULE PO SCH ×3 (08:58→18:25)
[2017-02-13] MEDS: amLODIPine 5 MG TABLET PO SCH (08:58)
[2017-02-13] MEDS: Isosorbide MONOnitrate (24 HR) 60 MG TAB.ER.24H PO SCH (08:58)
[2017-02-13] MEDS: Febuxostat [Uloric] 80 MG PO SCH (08:59)
[2017-02-13] MEDS: Renal Vitamin 1 MG CAPSULE PO SCH (08:59)
[2017-02-13] MEDS: Pantoprazole 40 MG VIAL IVP SCH (08:59)
[2017-02-13] MEDS: Furosemide 40 MG TABLET PO SCH (08:59)
[2017-02-13] MEDS: Metoprolol XL (24 HR) Succ 50 MG TAB.ER.24H PO SCH (08:59)
[2017-02-13] MEDS: Aspirin Enteric Coated 81 MG Tablet PO SCH (08:59)
[2017-02-13] MEDS: Gabapentin 300 MG CAPSULE PO SCH (08:59)
[2017-02-13] MEDS: Cholecalciferol (D-3) 1,000 UNIT TABLET PO SCH (08:59)
--- NOTE | 2017-02-13 08:59 | Cardiology Progress Note ---
Date of Encounter: 02/13/17 Time of Encounter: 08:56 Assessment and Plan (1) Chest pain Current Visit: Yes Status: Acute Typical and atypical chest pain likely secondary to acute diastolic CHF. Chest pain improved overnight per patient. C/o soreness and reproducible pain on exam today. States that she was doing physical therapy with a lot of arm exercises. Likely muscle skeletal. Noted to have mild troponin elevation up to 0.14 in the setting of acute CHF, COPD, and CKD. Not diagnostic in this setting. Noted to have EKG changes yesterday concerning for ischemia. Known CAD. Last [facility] 03/2015 showed 99% stenosis in the distal Lcx artery. There was 50% stenosis in the mLAD. Mild disease otherwise. Check TTE. Continue asa, statin, and bb. Start imdur. [facility] vs medical management was discussed and she prefers medical management at this time. Will increase bb Further to 100 mg daily. tolerating well. Seen to have intermittent sinus tachycardia in telemetry. Currently NSR with PAC. TTE completed shows normal LV systolic function, LVEF 55-60%. Mild concentric left ventricular hypertrophy. Mild left ventricular diastolic dysfunction. Mildly dilated right ventricle with mild RV hypokinesis. Mildly dilated left atrium. Mildly dilated right atrium. No significant valvular dysfunction. Mild pulmonary hypertension. Estimated RVSP = 36 mmHg. A pleural effusion is noted. Heparin gtt infusing. Recommend stopping tomorrow for full 48 hours. Cardiology will sign off. Out pt f/u will be scheduled in 1-2 weeks. Qualifiers: Chest pain type: unspecified Qualified Code(s): R07.9 - Chest pain, unspecified (2) CHF (congestive heart failure) Current Visit: Yes Status: Acute Presented with fluid overload on admission. H/o diastolic CHF. Acute on chronic CHFpEF. TTE shows normal LV function. Mild diastolic dysfunction. Noted to have RV hypokenesis. Patient also ESRD on dialysis. BNP 3702. CXR shows moderate CHF. Net negative 3992. Reports she is feeling better. Fluid removal per nephrology. Pt puts out very little urine. Low sodium diet. Strict I&O and daily weights. Qualifiers: Congestive heart failure type: unspecified congestive heart failure type Congestive heart failure chronicity: acute Qualified Code(s): I50.9 - Heart failure, unspecified (3) Elevated troponin Current Visit: No Status: Acute See plan above. Discussion w patient/family: The assessment and plan as outlined above was discussed with the patient and/or family members who expressed understanding and agreement. All questions were answered. Thank you for involving us in the care of your patient. Please call with any questions. Subjective Principal diagnosis: DCHF, chest pain Interval history: Ms. Moffett is laying comfortably in bed. Reports her chest is sore but improved. She has reproducible chest pain. She was doing arm exercises with physical therapy. Objective Vital Signs, Last 4 Hours Temp Pulse Resp BP Pulse Ox 02/13/17 08:06 16 95 02/13/17 07:21 97.5 F L 64 14 161/65 99 General: Conversant, No Apparent Distress HEENT: Atraumatic, Normocephaly, Mucus Membranes Moist Neck: No JVD, Normal carotid pulses Cardiac: Reg Rate and Rhythm, Normal S1 and S2, No Murmur Lungs: Normal Breath Sounds, No Wheeze, Rales, Rhonchi Neuro: Alert and responsive, No focal deficits noted Abdomen: Soft, Non-Tender Skin: No rashes noted on visualized skin Musculoskeletal: Other (reproducible chest wall tenderness) Extremities: No Clubbing, No Cyanosis, No Edema, Normal Pulses Results 02/13/17 07:55 02/13/17 07:55 Lab Results 02/12/17 02/12/17 02/12/17 15:17 15:17 21:10 WBC Hgb Hct Plt Count APTT 42.7 H 47.3 H Sodium Potassium Chloride Carbon Dioxide BUN Creatinine Glucose Calcium Troponin I 0.11 H* 02/13/17 02/13/17 02/13/17 04:55 07:55 07:55 WBC 11.9 H Hgb 10.0 L Hct 28.8 L Plt Count 189 APTT 65.1 H 41.0 H Sodium Potassium Chloride Carbon Dioxide BUN Creatinine Glucose Calcium Troponin I 02/13/17 07:55 WBC Hgb Hct Plt Count APTT Sodium 126 L Potassium 4.8 H Chloride 90 L Carbon Dioxide 23 BUN 37 H Creatinine 4.95 H Glucose 536 H* Calcium 8.1 L Troponin I - Imaging and Cardiology Echo: report reviewed (Normal LV systolic function, LVEF 55-60%. Mild concentric left ventricular hypertrophy. Mild left ventricular diastolic dysfunction. Mildly dilated right ventricle with mild RV hypokinesis. Mildly dilated left atrium. Mildly dilated right atrium. No significant valvular dysfunction. Mild pulmonary hypertension. Estimated RVSP = 36 mmHg. A pleural effusion is noted.) - EKG Interpretation EKG results cardiology: personally reviewed Consult Discharge Plan - Plan Referrals: Hugo Mercedes MD [Primary Care Provider] -
[2017-02-13] MEDS ORDERED: Insulin DETEMIR 100 UNIT/ML X5UNITS SQ SCH (09:00)
[2017-02-13] MEDS: Heparin 25,000 UNIT/500 ML D5W 25,000 UNIT/500 ML MLS IVC SCH (09:04)
[2017-02-13] MEDS: *HR* Heparin 5,000 UNIT/ML VIAL IVP PRN ×2 (09:11→15:32)
[2017-02-13] MEDS: *HR* OxyCODONE Immed Rel 5 MG TABLET PO PRN ×2 (09:12→20:49)
[2017-02-13] MEDS ORDERED: Metoprolol XL (24 HR) Succ 25 MG TAB.ER.24H PO ONE (09:45)
--- NOTE | 2017-02-13 09:49 | Nephrology Progress Note ---
Date of Encounter: 02/13/17 Time of Encounter: 09:35 - Assessment and Plan (1) ESRD (end stage renal disease) on dialysis Current Visit: No Status: Acute Plan for HD tomorrow Needs renal diet-ordered Avoid nephrotoxins if possible (2) Hyponatremia Current Visit: No Status: Acute Na+ 126 Glucose still very high at 536 (3) CHF (congestive heart failure) Current Visit: Yes Status: Acute per primary/cardiology teams Qualifiers: Congestive heart failure type: unspecified congestive heart failure type Congestive heart failure chronicity: acute Qualified Code(s): I50.9 - Heart failure, unspecified (4) DKA (diabetic ketoacidoses) Current Visit: Yes Status: Resolved per primary team Qualifiers: Diabetes mellitus type: type 1 Diabetes mellitus complication detail: without coma Qualified Code(s): E10.10 - Type 1 diabetes mellitus with ketoacidosis without coma Subjective Principal diagnosis: DCHF, chest pain Interval history: Patient seen and examined. Has lots of questions which were answered re: poss kidney transplant. Son is wanting to donate a kidney to her. Objective - Vital Signs Vital signs: Vital Signs Temp Pulse Resp BP Pulse Ox 02/13/17 08:06 16 95 02/13/17 07:21 97.5 F L 64 14 161/65 99 02/13/17 03:04 97.7 F 65 12 144/69 98 02/13/17 00:20 149/71 02/12/17 23:12 97.6 F 68 16 91/56 98 02/12/17 21:23 16 94 02/12/17 19:31 98.4 F 72 12 139/63 94 02/12/17 16:25 15 96 02/12/17 16:00 98.8 F 93 15 101/57 95 02/12/17 12:46 98.6 F 92 19 124/77 95 02/12/17 12:40 98 F 16 127/67 02/12/17 12:05 114/58 02/12/17 11:35 132/71 02/12/17 11:05 132/52 02/12/17 10:35 143/68 02/12/17 10:05 147/68 Intake and Output 02/12/17 02/13/17 02/13/17 23:59 07:59 15:59 Intake Total 369 / 369 611 / 611 Balance 369 / 369 611 / 611 Intake: IV Fluids 249 / 249 251 / 251 Heparin 25,000 UNIT/500 ML D5W 249 / 249 251 / 251 25,000 unit In 500 ml @ 12 UNIT /KG/HR 17.527 mls/hr IVC .Q24H CINDY Rx#:[id number] Oral 120 / 120 360 / 360 Other: Meal Dinner Breakfast Percent of Meal Consumed 75% 80% Stool Size Small Moderate Stool Consistency loose loose soft Stool Color Green # Bowel Movements 1 Weight 72.8 kg Blood Glucose* 198 Patient Weight 02/13/17 23:59 Weight 72.8 kg - General Appearance General appearance: Present: well-developed, well-nourished, obese EENT: Present: ATNC, mucous membranes moist, hearing intact, vision intact Neck: Present: supple Respiratory: Present: clear Cardiology: Present: no edema, normal S1, normal S2 Dialysis Vascular Access: Arteriovenous Fistula Gastrointestinal: Present: no tenderness, no guarding, obese Integumentary: Present: warm and dry Neurologic: Present: alert and oriented x3 Psychiatric: Present: mood/affect appropriate, cooperative - Lab 02/13/17 07:55 02/13/17 07:55 Most recent lab results Calcium 8.1 mg/dL (8.6-10.8) L 02/13/17 07:55 Magnesium 2.1 mg/dL (1.6-2.6) 02/12/17 05:55 Consult Discharge Plan - Plan Referrals: Hugo Mercedes MD [Primary Care Provider] -
--- NOTE | 2017-02-13 16:09 | Event Note ---
Date of Encounter: 02/13/17 Time of Encounter: 16:06 - Cardiology Event Note Asked to re-evaluate pt due to intermittent chest pain throughout the day. Re- discussed medical management vs. LHC. Pt now wishes to proceed with C tomorrow. R/B/A discussed and pt verbalizes understanding. [facility] for EKG changes, troponin 0.14, known CAD on LHC in 2014--99% distal LCx (small vessel) and 50% mLAD. Discussed with nephrology--would like to take pt to dialysis after C. Continue to follow.
--- NOTE | 2017-02-13 18:34 | Internal Med Progress Note ---
Date of Encounter: 02/13/17 Time of Encounter: 10:00 - Assessment and plan (1) DKA (diabetic ketoacidoses) Current Visit: Yes Status: Resolved Assessment and plan: DKA has resolved. Drip was discontinued after starting patient on basal insulin -Patient's basal insulin was increased for better glucose control. Qualifiers: Diabetes mellitus type: type 1 Diabetes mellitus complication detail: without coma Qualified Code(s): E10.10 - Type 1 diabetes mellitus with ketoacidosis without coma (2) ESRD (end stage renal disease) on dialysis Current Visit: No Status: Acute Assessment and plan: hemodialysis managed by nephrology (3) Anemia in ESRD (end-stage renal disease) Current Visit: No Status: Chronic Assessment and plan: Secondary to the above we will continue to monitor (4) Hypertension Current Visit: No Status: Chronic Assessment and plan: Home medications Qualifiers: Hypertension type: essential hypertension Qualified Code(s): I10 - Essential (primary) hypertension (5) Elevated troponin Current Visit: No Status: Acute Assessment and plan: -Due to patient's intermittent chest pain throughout the day she was reevaluated by cardiology Patient has now decided to proceed with [facility] which will be scheduled for . - Subjective Interval history: Patient with intermittent chest pain throughout the day - Constitutional Vitals: Temp Pulse Resp BP Pulse Ox 98.2 F 65 16 110/53 95 02/13/17 14:59 02/13/17 14:59 02/13/17 15:11 02/13/17 14:59 02/13/17 15:11 General appearance: Present: A&O X 3, answers questions appropriately - Respiratory Respiratory exam: Present: CTAB. Absent: accessory muscle use, rales, rhonchi, wheezes - Cardiovascular Cardiovascular exam: Present: RRR, +S1, +S2. Absent: diastolic murmur, gallop, rubs, systolic murmur Internal Medicine: Result - Labs CBC & Chem 7: 02/13/17 07:55 02/13/17 07:55 Labs: Short CBC 02/13/17 Range/Units 07:55 WBC 11.9 H (4.3-11.1) K/mcL Hgb 10.0 L (11.5-15.4) g/dL Hct 28.8 L (35.3-44.9) % Plt Count 189 (140-400) K/mcL Neutrophils # 8.3 (1.6-8.9) K/mcL BMP 02/13/17 07:55 Sodium 126 L Potassium 4.8 H Chloride 90 L Carbon Dioxide 23 BUN 37 H Creatinine 4.95 H Glucose 536 H* Calcium 8.1 L - Impressions Impressions Echocardiogram 02/11/17 14:20 Impressions: Normal LV systolic function, LVEF 55-60%. Mild concentric left ventricular hypertrophy. Mild left ventricular diastolic dysfunction. Mildly dilated right ventricle with mild RV hypokinesis. Mildly dilated left atrium. Mildly dilated right atrium. No significant valvular dysfunction. Mild pulmonary hypertension. Estimated RVSP = 36 mmHg. A pleural effusion is noted. Left Ventricular Wall Motion: Rest Echo Findings All wall segments showed normal motion. Findings: Study Quality * Technically adequate exam. ECG Findings * Sinus arrhythmia. Left Ventricle * Normal LV systolic function, LVEF 55-60%. * Normal LV chamber size. * Mild concentric left ventricular hypertrophy. * Mild left ventricular diastolic dysfunction. Right Ventricle * Mildly dilated right ventricle with mild RV hypokinesis. Left Atrium * Mildly dilated left atrium. Right Atrium * Mildly dilated right atrium. Aorta * Normally sized aortic root. Pericardium * There is no pericardial effusion present. IVC * Normal IVC dimensions and inspiratory collapse. Pleural Effusion * A pleural effusion is noted. Aortic Valve * Trileaflet aortic valve. * Mildly sclerotic aortic valve leaflets. * No aortic stenosis. * No aortic regurgitation. Mitral Valve * Mild mitral annular calcification * No mitral stenosis. * Trace mitral regurgitation. Tricuspid Valve * Normal tricuspid valve structure. * No tricuspid stenosis. * Trace tricuspid regurgitation. * Mild pulmonary hypertension. Estimated RVSP = 36 mmHg. Pulmonic Valve * Normal pulmonic valve structure. * No pulmonic stenosis. * Trace pulmonic regurgitation. Consult Discharge Plan - Plan Referrals: Hugo Mercedes MD [Primary Care Provider] -
[2017-02-13] MEDS: Insulin DETEMIR 100 UNIT/ML X5UNITS SQ SCH (20:53)
[2017-02-14] MEDS: Ipratropium/Albuterol Neb 3 ML IH SCH ×6 (03:40→23:48)
[2017-02-14] MEDS: hydrALAZINE 25 MG TABLET PO SCH ×3 (04:10→20:59)
[2017-02-14] MEDS: Calcium Acetate 667 MG CAPSULE PO SCH ×3 (07:30→17:00)
[2017-02-14] MEDS: Insulin LISPRO 300 UNITS/3 ML VIAL SQ SCH ×4 (07:48→20:54)
[2017-02-14] MEDS: Pantoprazole 40 MG VIAL IVP SCH (07:52)
[2017-02-14] MEDS: Furosemide 40 MG TABLET PO SCH (07:53)
[2017-02-14] MEDS: Metoprolol XL (24 HR) Succ 50 MG TAB.ER.24H PO SCH (07:53)
[2017-02-14] MEDS: Renal Vitamin 1 MG CAPSULE PO SCH (07:53)
[2017-02-14] MEDS: Gabapentin 300 MG CAPSULE PO SCH (07:53)
[2017-02-14] MEDS: Isosorbide MONOnitrate (24 HR) 60 MG TAB.ER.24H PO SCH (07:53)
[2017-02-14] MEDS: amLODIPine 5 MG TABLET PO SCH (07:54)
[2017-02-14 08:11] LABS: Hematocrit 27.5 % (35.3-44.9); Hemoglobin 9.4 g/dL (11.5-15.4); Mean Corpuscular HGB Conc 34.2 g/dL (31.6-35.5); Mean Corpuscular Hemoglobin 33.3 pg (28.0-33.3); Mean Corpuscular Volume 97.5 fL (83.0-100.0); Mean Platelet Volume 12.1 fL (9.4-12.4); Platelet Count 192 K/mcL (140-400); Red Blood Count 2.82 M/mcL (3.82-4.97); Red Cell Distribution Width 14.6 % (11.5-14.5)
[2017-02-14 08:26] LABS: Potassium 5.6 mEq/L (3.5-4.5)
[2017-02-14] MEDS: Insulin DETEMIR 100 UNIT/ML X5UNITS SQ SCH (08:54)
[2017-02-14] MEDS: Aspirin Enteric Coated 81 MG Tablet PO SCH (09:00)
[2017-02-14] MEDS: Cholecalciferol (D-3) 1,000 UNIT TABLET PO SCH (09:00)
[2017-02-14] MEDS ORDERED: 0.9 % Sodium Chloride 250 ML IVC PRN (09:20)
[2017-02-14] MEDS ORDERED: 0.9 % Sodium Chloride 1,000 ML PRIME SCH (09:30)
[2017-02-14] MEDS: *HR* OxyCODONE Immed Rel 5 MG TABLET PO PRN ×2 (09:33→23:12)
--- NOTE | 2017-02-14 09:48 | Event Note ---
Date of Encounter: 02/14/17 Time of Encounter: 09:00 - Cardiology Event Note Patient planning for LHC today. R/B/A of procedure reviewed. She continues to wish to proceed. Notified by nursing staff that nephrology would like dialysis prior to procedure today. Plan for LHC later this afternoon after dialysis. She Continues to have a constant mild chest pain. Pain is reproducible on exam. She states that pain increases when she ambulated to the bathroom. Continue asa, statin, beta-dick, and imdur. On heparin gtt. Can be stopped after LHC. Glucose noted to be 500 range this am. Recently on insulin gtt. Hospitalist following DKA.
--- NOTE | 2017-02-14 11:12 | Nephrology Progress Note ---
Date of Encounter: 02/14/17 Time of Encounter: 10:51 - Assessment and Plan (1) Chest pain Current Visit: Yes Status: Acute Patient with unstable angina and likely NSTEMI. She continues to complain of intermittent chest discomfort that resolves. Cardiology plans to perform cardiac cath today. Qualifiers: Chest pain type: unspecified Qualified Code(s): R07.9 - Chest pain, unspecified (2) ESRD (end stage renal disease) on dialysis Current Visit: No Status: Acute Patient receives dialysis MWF via a LANCE fistula. She is tolerating dialysis well. Adjust medications for renal function. Renal diet. (3) Elevated troponin I level Current Visit: No Status: Acute Per cardiology. Plan for cardiac cath. (4) Diabetes mellitus Current Visit: No Status: Chronic Uncontrolled. Per primary team. Unclear why her blood sugars are so hard to control. Consider restarting insulin gtt vs. restarting her home insulin pump. 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 Qualifiers: Hypertension type: essential hypertension Qualified Code(s): I10 - Essential (primary) hypertension Subjective Principal diagnosis: DCHF, chest pain Interval history: Patient seen and evaluated on dialysis. She continues to have intermittent chest pain and anticipates cardiac cath today. Will plan for a short session of dialysis afterward if needed. Objective - Vital Signs Vital signs: Vital Signs Temp Pulse Resp BP Pulse Ox 02/14/17 08:02 14 98 02/14/17 07:45 98.0 F 64 16 140/65 99 02/14/17 07:17 98.0 F 64 16 140/65 99 02/14/17 03:43 13 98 02/14/17 03:29 97.6 F 60 16 141/64 100 02/13/17 23:59 98.3 F 60 16 105/53 100 02/13/17 19:55 15 94 02/13/17 19:46 98.2 F 64 16 110/48 94 02/13/17 15:11 16 95 02/13/17 14:59 98.2 F 65 18 110/53 97 02/13/17 11:20 98.5 F 02/13/17 11:14 68 14 138/61 96 02/13/17 11:12 16 96 Intake and Output 02/13/17 02/14/17 02/14/17 23:59 07:59 15:59 Intake Total 340 / 340 0 / 0 Output Total 0 / 0 Balance 340 / 340 0 / 0 Intake: Oral 340 / 340 0 / 0 Output: Urine 0 / 0 Other: Meal Dinner NPO Percent of Meal Consumed 80% Weight 72.8 kg Blood Glucose* 373 490 Patient Weight 02/14/17 23:59 Weight 72.8 kg - General Appearance General appearance: Present: well-developed, well-nourished EENT: Present: ATNC Neck: Present: supple Cardiology: Present: no edema, regular rate Integumentary: Present: warm and dry Neurologic: Present: alert and oriented x3 Psychiatric: Present: mood/affect appropriate - Lab 02/14/17 07:45 02/14/17 07:45 Most recent lab results Calcium 8.0 mg/dL (8.6-10.8) L 02/14/17 07:45 Phosphorus 5.5 mg/dL (2.3-4.7) H 02/13/17 07:55 Magnesium 2.1 mg/dL (1.6-2.6) 02/12/17 05:55 Consult Discharge Plan - Plan Referrals: Hugo Mercedes MD [Primary Care Provider] -
[2017-02-14] MEDS ORDERED: predniSONE 20 MG TABLET PO ONE (13:00)
[2017-02-14] MEDS ORDERED: 0.9 % Sodium Chloride 1,000 ML ONE ×3 (13:07→17:58)
[2017-02-14] MEDS ORDERED: Nitroglycerin 1,000 MCG/10 ML VIAL IV ONE (13:08)
[2017-02-14] MEDS ORDERED: Heparin 1,000 UNITS/500 mL NS 500 ML ONE (13:08)
[2017-02-14] MEDS ORDERED: *HR* Heparin 10,000 UNIT/10 ML VIAL ONE (13:08)
--- NOTE | 2017-02-14 14:18 | Pre-Sedation Evaluation ---
Pre-sedation evaluation - Pre-sedation checklist Date of procedure: 02/14/17 Procedure: Cardiac cath Recent Vitals: Last Vital Signs Temp 97.3 F L 02/14/17 10:05 Pulse 64 02/14/17 07:45 Resp 18 02/14/17 10:05 BP 94/50 02/14/17 13:20 Pulse Ox 98 02/14/17 08:02 H&P (including ROS) documented in medical record: Yes Previous reaction to sedatives/anesthetics: No Dietary Status: NPO after Midnight Airway Assessment: Patient can open mouth completely, TMJ function normal, Micrognathia (under-bite, receding chin) absent, Neck with adequate range of motion Dentition: No loose teeth or bridges Possible difficult airway: No ASA Classification *see protocol: CLASS II-Mild systemic disease Plan of Care: Pt appropriate candidate for procedure/moderate/conscious sedation , Risks/benefits of procedure/sedation discussed w/ patient/family
[2017-02-14] MEDS ORDERED: methylPREDNISolone 125 MG/2 ML VIAL ONE (14:19)
[2017-02-14] MEDS ORDERED: *HR* Midazolam HCl 2 MG/2 ML VIAL ONE (14:19)
[2017-02-14] MEDS ORDERED: *HR* FentaNYL (PF) 100 MCG/2 ML VIAL ONE (14:19)
[2017-02-14] MEDS ORDERED: *HR* Bivalirudin 250 MG VIAL IVC ONE (14:43)
[2017-02-14] MEDS ORDERED: *HR* Ticagrelor 90 MG TABLET ONE (15:16)
[2017-02-14] MEDS ORDERED: *HR* Dextrose 50 % in Water (Syg) 50 ML SYRINGE ONE (15:43)
[2017-02-14] MEDS ORDERED: Nitroglycerin 0.4 MG TAB.SUBL SL PRN (16:02)
--- NOTE | 2017-02-14 16:08 | Invasive Diagnostic Lab Proc ---
Name: Ursula Moffett Date of Study: 02/14/2017 Date: 1945 Ht: 64.2in Medical Record#: [id number] Age: 71 Wt: 160.50lb Gender: Female BSA: 1.78 Order #: [id number] BMI: 27.4 Physicians Procedure Physician: Mckenzie Florentino MD, [facility] Referring MD: Referring MD: Staff Name Position Time In Raudel Rob RN Monitor 02:28 PM Nikkie Bass RN Car Customizer 02:28 PM Ana Cristina Peña RT Scrub 02:29 PM Indications Indication Non-Stemi Procedures Performed Procedure L HRT ARTERY/VENTRICLE ANGIO PRQ CARD BRYNN STENT W/ANGIO 1 VSL PRQ CARD BRYNN STENT W/ANGIO 1 VSL PRQ CARD BRYNN STENT W/ANGIO 1 VSL Pre-Procedure Checklist Informed consent is complete signed and on chart. H&P is on chart. ID band is on and ID verified with patient. Patient NPO for procedure The procedure was described for the patient and questions were answered. Blood Pressure: 101/50 ECG is on chart. Rhythm: NSR Plan of Care Patient will tolerate the procedure without complications. Adequate level of comfort will be maintained. Hemodynamics will remain stable Patient will recover from procedure without complications. Respiratory function will be maintained. Cardiac rhythm will remain stable. Patient temperature will be maintained. Patient and/or family have verbalized understanding of the procedure. Patient Education Intravenous Access Time IV Size Location DC'd Fluid/Drip Rate Units RN 02:26 PM 18g 1 1/4" Patent On Arrival Rt Antecubital Raudel Rob RN 18g 1 1/4" Peripheral-Lock On Arrival Rt Arm Raudel Rob RN 0.9NaCl Allergies NKDA No Known Allergies NONE KNOWN ivp dye Vital Signs Time BP (mmHg) HR (bpm) O2 Sat. RR (bpm) LOC 02:28 PM 101 / 50 64 98 % 18 5 = Fully awake and oriented or at pre-proc level 02:31 PM / % 4 = Oriented but drowsy 02:31 PM / % 4 = Oriented but drowsy 02:46 PM / % 4 = Oriented but drowsy 03:02 PM / % 4 = Oriented but drowsy 02:27 PM 127 / 49 67 94 % 9 02:32 PM 120 / 50 66 91 % 23 02:37 PM 122 / 38 66 94 % 20 02:41 PM 128 / 53 69 98 % 16 02:47 PM 120 / 53 62 98 % 12 02:51 PM 131 / 52 66 98 % 19 02:57 PM 124 / 70 68 98 % 18 03:02 PM 136 / 46 66 96 % 15 03:07 PM 142 / 40 68 98 % 18 03:12 PM 120 / 49 67 96 % 20 03:17 PM 139 / 50 67 98 % 15 03:22 PM 116 / 50 67 96 % 16 03:26 PM 108 / 65 68 98 % 10 03:17 PM / % 4 = Oriented but drowsy Procedural Medications Time Medication Dose Units Method Given By 02:29 PM Oxygen 2 L/min nasal cannula Nikkie Bass RN 02:30 PM Versed 1 mg Intravenous Nikkie Bass RN 02:31 PM Solu-medrol 125 mg Intravenous Nikkie Bass RN 02:31 PM Benadryl 25 mg Intravenous Nikkie Bass RN 02:32 PM Lidocaine 2% 14 ml Subcutaneous Mckenzie Florentino MD, FACC 02:45 PM Angiomax 0.75mg/kg bolus: 10.5 ml Intravenous Nikkie Bass RN 02:46 PM Angiomax 1.75mg/kg/hr: 3.5 ml/hr Intravenous Nikkie Bass RN 02:50 PM Fentanyl 25 mcg Intravenous Raudel Rob RN 02:58 PM Nitroglycerin 200 mcg Intracoronary Mckenzie Florentino MD, FACC 03:09 PM Nitroglycerin 200 mcg Intracoronary Mckenzie Florentino MD, FACC 03:20 PM Nitroglycerin 200 mcg Intracoronary Mckenzie Florentino MD, FACC 03:26 PM Brilinta 180 mg Orally Nikkie Bass RN 03:26 PM Reopro 9 ml Intravenous Nikkie Bass RN 02:35 PM Oxygen 4 L/min nasal cannula Nikkie Bass RN 03:48 PM Dextrose 50% 25 ml Intravenous Nikkie Bass RN 04:00 PM Dextrose 50% 25 ml Intravenous Nikkie Bass RN ASA Classification: CLASS II- Mild systemic disease (i.e. well-controlled diabetes, hypertension, asthma, cigarette smoking) [place] Score Preprocedure Postprocedure Activity 2- Moves 4 extremities sustained head lift Activity 2- Moves 4 extremities sustained head lift Circulation 2- SBP +/= 20 points of pre-anesthetic level Circulation 2- SBP +/= 20 points of pre-anesthetic level Consciousness 2- Awake and alert oriented x 3 Consciousness 2- Awake and alert oriented x 3 O2 Saturation 2- Able to maintain O2 satruation of 92% on room air O2 Saturation 2- Able to maintain O2 satruation of 92% on room air Respiratory 2- Able to deep breathe and cough well Respiratory 2- Able to deep breathe and cough well Total Score 10 Total Score 10 Contrast Agent: Isovue Diagnostic Contrast: 258 ml Total Contrast: 258 ml Fluoro Dose: 917 mGy Procedure Log Time Note Enter By 02: PM Recorded ECG: HR=71 Condition=Condition 1 02: PM CathStat 02: PM Vitals capture started with the following parameters, Patient=Adult, Interval=5 min, Initial Rosttrpj=507 mmHg, Deflation Rate=5 mmHg, Cuff placed on Left Arm 02:27 PM HR=67 bpm, OYQU=536/49 mmhg, SpO2=94.0 %, Resp=9 B/min, Comment=nsr 02: PM Pt arrived to wastewater analyst lab analyst 2 at 14:28 [facility] : PM Raudel Rob RN Position: Monitor Time in: : [facility] : PM Nikkie Bass RN Position: Car Customizer Time in: : [facility] : PM Ana Cristina Peña Position: Scrub Time in: 14:29 [facility] 02:29 PM Patient charges- Angio tray pack, Navilyst 3mm J, Pulse Oximetry and ACIST tubing and transducer [facility] PM Case Delayed no, [facility] : PM Hair removed from procedure site in holding area using clippers. Bilateral groin prepped with Chloraprep by Nikkie Bass RN, safety strap applied then patient was draped. Skin intact. [facility] : PM Alvin paged/called 14:29. [facility] : PM Alvin responded and notified patient is ready 14: [facility] :29 PM Physician arrived 14: [facility] :29 PM Meet and greet completed [facility] : PM Sign in performed according to hospital policy. [facility] :29 PM Procedure start 14: [facility] :30 PM Time: 14:29 Oxygen on at 2 L/min per nasal cannula by Nikkie Bass RN 02:30 PM Time: 14:30 Versed 1 mg Intravenous Given by Nikkie Bass RN 02: PM Time: 14:31 Solu-medrol 125 mg Intravenous Given by Nikkie Bass RN 02:31 PM Time: 14:31 Fentanyl 25 mcg Intravenous Given by Raudel Rob RN 02: PM Time: 14:31 Benadryl 25 mg Intravenous Given by Nikkie Bass RN 02: PM Time: 14:31 Patient comfortable and pain free: Yes [facility] : PM Time: 14:31LOC: 4 = [facility]ed [facility] d[facility]y [facility] PM Clinical Presentation: Non-STEMI [facility] 02:31 PM Time out performed according to hospital policy [facility] 02:32 PM HR=66 bpm, SYQU=924/50 mmhg, SpO2=91.0 %, Resp=23 B/min, Comment=nsr 02:32 PM Time: 14:32 14 ml Lidocaine 2% to right groin Subcutaneous Given by Mckenzie Florentino MD, [facility] 02:33 PM Access obtained by percutaneous puncture. 5Fr 10cm Terumo [place] sheath placed in right Femoral artery. [id number] [facility] 02:33 PM 5Fr FL 4 catheter [facility] PM Pressure channel 3 zero failed. 02:34 PM Recorded Pressure: Ao, HR=67, Condition=Condition 1 (Aorta) Ao 106/51/73 02:34 PM LCA angiography performed in multiple views. [facility] 02:35 PM Time: 14:35 Oxygen on at 4 L/min per nasal cannula by Nikkie Bass RN 02:35 PM ASA Class CLASS II- Mild systemic disease (i.e. well-controlled diabetes, hypertension, asthma, cigarette smoking) [facility] 02:36 PM Catheter removed [facility] 02:36 PM 5Fr FR 4 [facility] 02[facility] PM HR=66 bpm, NOJC=396/38 mmhg, SpO2=94.0 %, Resp=20 B/min, Comment=nsr 02:37 PM RCA angiography performed in multiple views. [facility] 02:37 PM Recorded Pressure: Ao, HR=71, Condition=Condition 1 (Aorta) Ao 102/57/78 02:38 PM Catheter removed [facility] 02:38 PM 5Fr Pigtail catheter inserted over the wire [facility] lparsley 02:38 PM Catheter selectively placed in left ventricle lparsley 02:39 PM Pressure channel 3 zeroed. 02:39 PM Recorded Pressure: LV, HR=69, Condition=Condition 1 (Left Ventricle) LV 103/15/18 02:39 PM Bolus angiogram of left Ventricle complete: 8 ml/sec for a total of 24 mls lparsley 02:39 PM Recorded Pressure: LV, Ao, HR=72, Condition=Condition 1 (Left Ventricle) LV 101/19/29, (Aorta) Ao 103/56/77 02:40 PM Catheter removed l[facility]ley 02:40 PM Wire removed l[facility]ley 02:40 PM PCI Status Urgent [facility] 02:40 PM PCI Indication: PCI for high risk Non-STEMI or unstable angina [facility] 02:41 PM Sheath exchanged for a 6 Fr 10 cm [employer] [place] sheath [id number] [facility] 02:41 PM .014 Prowater 180cm guide wire across target lesion- successful. reused? No l[facility]ley 02:41 PM Inflation device was opened. l[facility]ley 02:41 PM HR=69 bpm, AHKN=060/53 mmhg, SpO2=98.0 %, Resp=16 B/min, Comment=nsr 02:42 PM Lesion found in Proximal LAD. Pre Stenosis: 85 Pre CHUY Flow: 3: Complete and Brisk Flow/Perfusion lparsley 02:42 PM Coronary Dominance: right lparsley 02:43 PM Proximal Left Anterior Descending Coronary Artery with 85% stenosis. If graft is supplying this territory, 0 % stenosis. l[facility]ley 02:45 PM 6Fr XB LAD 3.5 Cordis guide catheter was used to cannulate the PCI vessel successfully. reused? No [facility] 02:46 PM Time: 14:45 Angiomax 0.75mg/kg bolus: 10.5 ml Intravenous Given by Nikkie Bass RN [place] pump l[facility]ley 02:46 PM Time: 14:46 Angiomax 1.75mg/kg/hr: 3.5 ml/hr Intravenous Given by Nikkie Bass RN [place] pump [facility] 02:46 PM Recorded Pressure: Ao, HR=68, Condition=Condition 1 (Aorta) Ao 135/49/79 02:46 PM Time: 14:31LOC: 4 = Oriented but drowsy [facility] 02:46 PM Time: 14:31 Patient comfortable and pain free: Yes [facility] 02:47 PM HR=62 bpm, ZVQA=482/53 mmhg, SpO2=98.0 %, Resp=12 B/min, Comment=nsr 02:50 PM 2.5 mm x 15 mm Emerge Monorail balloon across target lesion- successful. reused? No l[facility]ley 02:51 PM Balloon inflated @ 8 jose maria for 20 seconds lparsley 02:51 PM HR=66 bpm, XVRE=289/52 mmhg, SpO2=98.0 %, Resp=19 B/min, Comment=nsr 02:52 PM Recorded Pressure: Ao, HR=67, Condition=Condition 1 (Aorta) Ao 105/50/73 02:53 PM Balloon inflated @ 8 jose maria for 20 seconds lparsley 02:54 PM Balloon catheter removed intact. l[facility] 02:54 PM Recorded Pressure: Ao, HR=65, Condition=Condition 1 (Aorta) Ao 135/47/79 02:56 PM 2.75mm x 20mm Synergy drug-eluting stent across target lesion- successful Lot #[id number] lparsley 02:56 PM Stent deployed @ 14 jose maria for 30 seconds lparsley 02:57 PM HR=68 bpm, HJTI=216/70 mmhg, SpO2=98.0 %, Resp=18 B/min, Comment=nsr 02:57 PM Recorded Pressure: Ao, HR=68, Condition=Condition 1 (Aorta) Ao 99/49/71 02:57 PM Stent balloon reinflated @ 18 jose maria for 15 seconds lparsley 02:57 PM Stent delivery system removed intact. l[facility]ley 02:58 PM Time: 14:58 Nitroglycerin 200 mcg Intracoronary Given by Mckenzie Florentino MD, [facility] lparsley 02:59 PM Recorded Pressure: Ao, HR=65, Condition=Condition 1 (Aorta) Ao 102/38/62 03:01 PM Wire repositioned into Circumflex. l[facility]ley 03:01 PM Time: 14:46 Patient comfortable and pain free: Yes [facility] 03:02 PM Time: 14:46LOC: 4 = Oriented but drowsy [facility] 03:02 PM HR=66 bpm, IXSK=943/46 mmhg, SpO2=96.0 %, Resp=15 B/min, Comment=nsr 03:02 PM Recorded Pressure: Ao, HR=65, Condition=Condition 1 (Aorta) Ao 131/49/80 03:03 PM 2.0 mm x 8 mm Emerge Monorail balloon across target lesion- successful. reused? No lparsley 03:05 PM Balloon inflated @ 10 jose maria for 20 seconds lparsley 03:06 PM Balloon catheter removed intact. lparsley 03:07 PM 2.5mm x 12mm Synergy drug-eluting stent across target lesion- successful Lot #[id number] lparsley 03:07 PM HR=68 bpm, KGDS=643/40 mmhg, SpO2=98.0 %, Resp=18 B/min, Comment=nsr 03:08 PM Lesion found in Distal Circumflex. Pre Stenosis: 99 Pre CHUY Flow: 3: Complete and Brisk Flow/Perfusion lparsley 03:08 PM Circumflex, Obtuse Marginal, Left Posterior Descending, and Left Posterolateral Coronary Arteries with 99 % stenosis. If graft is supplying this area, 0 % stenosis lparsley 03:08 PM Stent deployed @ 10 jose maria for 30 seconds lparsley 03:08 PM Stent delivery system removed intact. l[facility]ley 03:09 PM Recorded Pressure: Ao, HR=66, Condition=Condition 1 (Aorta) Ao 139/48/81 03:09 PM Time: 15:09 Nitroglycerin 200 mcg Intracoronary Given by Mckenzie Florentino MD, [facility] lparsley 03:12 PM HR=67 bpm, DVZQ=499/49 mmhg, SpO2=96.0 %, Resp=20 B/min, Comment=nsr 03:13 PM Guide catheter removed intact. lparsley 03:13 PM Wire repositioned to RCA. lparsley 03:13 PM Recorded Pressure: Ao, HR=69, Condition=Condition 1 (Aorta) Ao 130/48/79 03:14 PM 6Fr JR 4 Cordis guide catheter was used to cannulate the PCI vessel successfully. reused? No lparsley 03:15 PM Lesion found in Mid RCA. Pre Stenosis: 70 Pre CHUY Flow: 3: Complete and Brisk Flow/Perfusion lparsley 03:15 PM Right Coronary, Right Posterior Descending Arteries with Right Posterolateral and Acute Marginal branches with 70 % stenosis. If graft is supplying this area, 0 % stenosis lparsley 03:16 PM lparsley 03:17 PM Time: 15:01 Patient comfortable and pain free: Yes lparsley 03:17 PM HR=67 bpm, BVYE=511/50 mmhg, SpO2=98.0 %, Resp=15 B/min, Comment=nsr 03:18 PM 3.0mm x 12mm Synergy drug-eluting stent across target lesion- successful Lot #[id number] lparsley 03:18 PM Stent deployed @ 12 jose maria for 30 seconds l[facility]ley 03:19 PM Stent balloon reinflated @ 16 jose maria for 15 seconds l[facility]ley 03:19 PM Stent balloon reinflated @ 16 jose maria for 10 seconds lparsley 03:19 PM Stent delivery system removed intact. l[facility]ley 03:20 PM Time: 15:20 Nitroglycerin 200 mcg Intracoronary Given by Mckenzie Florentino MD, FACC [facility] 03:21 PM Guide catheter removed intact. l[facility]ley 03:21 PM Guide wire removed intact. lparsley 03:22 PM HR=67 bpm, FTMI=604/50 mmhg, SpO2=96.0 %, Resp=16 B/min, Comment=nsr 03:23 PM Bolus angiogram of right Femoral complete: 4 ml/sec for a total of 7 mls l[facility]ley 03:24 PM Procedure completed at 15:24 l[facility]ley 03:24 PM Sign out completed: Radiation Dose 917 mGy Fluoro Time: 13.3 Isovue 370 - 200ml contrast 258 ml given by Mckenzie Florentino MD, FAC. Complications: NoneCardiac Rehab Consult needed: YesConfirmed administered medications: Yes lparsley 03:24 PM Isovue 370 - 200ml,1 Bottle(s) used. lparsley 03:24 PM Sheath left in place to be pulled on floor/holding areaV+Pad lparsley 03:24 PM Post ECG NSR l[facility]ley 03:24 PM Post Blood Pressure 116/50 l[facility]ley 03:25 PM Information taught Cardiac Cath and PCI l[facility] 03:25 PM Education needs Procedure, Plan of Care, and Responsibilities of Patient in Care l[facility] 03:25 PM Learning barriers :None [facility] 03:25 PM Education Methods Verbal [facility] 03:25 PM Education evaluation Able to repeat information [facility] 03:26 PM Site status No bleeding/hematoma - Rt Groin as reported by Ana Cristina Peña RT at 15:25 rafa 03:26 PM Opsite applied [facility] 03:26 PM Plavix, Effient or Brilinta given Yes rafa 03: PM Time: 15:26 Brilinta 180 mg Orally Given by Nikkie Bass RN 03: PM HR=68 bpm, ZKGH=696/65 mmhg, SpO2=98.0 %, Resp=10 B/min, Comment=nsr 03:27 PM Time: 15:26 Reopro 9 ml Intravenous Given by Nikkie Bass RN 03:28 PM Delay to floor No, inpatient [facility] 03:28 PM Family placed in consult room. [facility] 03:28 PM Complications: None rafa 03:28 PM Fluoro Time: 13.3 rafa 03:28 PM Isovue 370 - 200ml contrast 258 ml given by Mckenzie Florentino MD, [facility] 03:28 PM Radiation Dose 917 mGy [facility] 03:29 PM 15:29 Post Pulses Bilateral DP & PT 1+ [facility] 03:32 PM Time: 15:17 Patient comfortable and pain free: Yes rafa 03:32 PM Time: 15:17LOC: 4 = Oriented but drowsy [facility] 03:39 PM Lesion found in Proximal RCA. Pre Stenosis: 25 Pre CHUY Flow: rafa 03:40 PM Lesion found in LMCA. Pre Stenosis: 40 Pre CHUY Flow: rafa 03:40 PM Left Main Coronary Artery with 40% stenosis rafa 03:42 PM Report given to Yeni FLETCHER Pt taken to Room #5. 15:41 rafa 03:46 PM Pt blood sugar 49 upon checking it. rafa 03:48 PM Time: 15:48 Dextrose 50% 25 ml Intravenous Given by Nikkie Bass RN 03:59 PM Repeat blood sugar 87. rafa 04:00 PM Time: 16:00 Dextrose 50% 25 ml Intravenous Given by Nikkie Bass RN 04:01 PM Patient out of room: 16:01 rafa Complications Complication None None Hemodynamics Pressures Site Systolic/A Wave Diastolic/V Wave Mean AO 106 51 73 AO 102 57 78 LV 103 15 18 LV 101 19 29 AO 103 56 77 AO 135 49 79 AO 105 50 73 AO 135 47 79 AO 99 49 71 AO 102 38 62 AO 131 49 80 AO 139 48 81 AO 130 48 79 Post Procedure Information Blood Pressure: 116/50 mmHg Rhythm: NSR Post procedural instructions were given Site Checks Time Location Status Staff Sheath In? Note 03:25 PM Rt Groin No bleeding/hematoma Ana Cristina Peña RT Pulses Time Site Pre-Procedure Post-Procedure Note 02/14/2017 2:27:00 PM Bilateral DP & PT 1+ 02/14/2017 2:28:00 PM Bilateral radial 2+ 3:29:00 PM Bilateral DP & PT 1+ Updated by Nikkie Bass RN on 02/14/2017 4:01:36 PM electronically signed on 02/14/2017 4:02:59 PM with status of Final
--- NOTE | 2017-02-14 18:58 | Internal Med Progress Note ---
Date of Encounter: 02/14/17 Time of Encounter: 11:00 - Assessment and plan (1) DKA (diabetic ketoacidoses) Current Visit: Yes Status: Resolved Assessment and plan: DKA has resolved. Drip was discontinued after starting patient on basal insulin -Patient's basal insulin was increased for better glucose control. Qualifiers: Diabetes mellitus type: type 1 Diabetes mellitus complication detail: without coma Qualified Code(s): E10.10 - Type 1 diabetes mellitus with ketoacidosis without coma (2) ESRD (end stage renal disease) on dialysis Current Visit: No Status: Acute Assessment and plan: hemodialysis managed by nephrology (3) Anemia in ESRD (end-stage renal disease) Current Visit: No Status: Chronic Assessment and plan: Secondary to the above we will continue to monitor (4) Hypertension Current Visit: No Status: Chronic Assessment and plan: Home medications Qualifiers: Hypertension type: essential hypertension Qualified Code(s): I10 - Essential (primary) hypertension (5) Elevated troponin Current Visit: No Status: Acute Assessment and plan: -Due to patient's intermittent chest pain throughout the day she was reevaluated by cardiology Patient has now decided to proceed with [facility] which will be scheduled for . - Subjective Interval history: No acute events overnight - Constitutional Vitals: Temp Pulse Resp BP Pulse Ox 97.6 F 61 18 158/69 97 02/14/17 18:50 02/14/17 18:50 02/14/17 18:50 02/14/17 18:50 02/14/17 18:50 General appearance: Present: A&O X 3, answers questions appropriately - Respiratory Respiratory exam: Present: CTAB. Absent: accessory muscle use, rales, rhonchi, wheezes - Cardiovascular Cardiovascular exam: Present: RRR, +S1, +S2. Absent: diastolic murmur, gallop, rubs, systolic murmur Internal Medicine: Result - Labs CBC & Chem 7: 02/14/17 07:45 02/14/17 07:45 Labs: Short CBC 02/14/17 Range/Units 07:45 WBC 9.2 (4.3-11.1) K/mcL Hgb 9.4 L (11.5-15.4) g/dL Hct 27.5 L (35.3-44.9) % Plt Count 192 (140-400) K/mcL BMP 02/14/17 07:45 Sodium 126 L Potassium 5.6 H Chloride 89 L Carbon Dioxide 24 BUN 52 H D Creatinine 6.30 H Glucose 555 H* Calcium 8.0 L Consult Discharge Plan - Plan Referrals: Hugo Mercedes MD [Primary Care Provider] -
[2017-02-14] MEDS: Heparin 25,000 UNIT/500 ML D5W 25,000 UNIT/500 ML MLS IVC SCH (19:34)
[2017-02-14] MEDS ORDERED: *HR* Atropine Sulfate 1 MG/10 ML SYRINGE ONE (19:35)
[2017-02-14] MEDS: *HR* Heparin 5,000 UNIT/ML VIAL SQ SCH (20:58)
[2017-02-14] MEDS ORDERED: Insulin DETEMIR 100 UNIT/ML X5UNITS SQ SCH (21:00)
[2017-02-15] MEDS: Ipratropium/Albuterol Neb 3 ML IH SCH ×5 (03:51→19:47)
[2017-02-15] MEDS: hydrALAZINE 25 MG TABLET PO SCH ×3 (05:16→20:11)
[2017-02-15] MEDS: *HR* OxyCODONE Immed Rel 5 MG TABLET PO PRN ×3 (05:16→19:00)
[2017-02-15] MEDS: *HR* Heparin 5,000 UNIT/ML VIAL SQ SCH ×2 (05:16→17:10)
[2017-02-15] MEDS: Insulin LISPRO 300 UNITS/3 ML VIAL SQ SCH (08:35)
[2017-02-15] MEDS: Gabapentin 300 MG CAPSULE PO SCH (08:44)
[2017-02-15] MEDS: Aspirin Enteric Coated 81 MG Tablet PO SCH (08:44)
[2017-02-15] MEDS: Isosorbide MONOnitrate (24 HR) 60 MG TAB.ER.24H PO SCH (08:44)
[2017-02-15] MEDS: Calcium Acetate 667 MG CAPSULE PO SCH ×3 (08:44→17:02)
[2017-02-15] MEDS: Cholecalciferol (D-3) 1,000 UNIT TABLET PO SCH (08:44)
[2017-02-15] MEDS: amLODIPine 5 MG TABLET PO SCH (08:45)
[2017-02-15] MEDS: Metoprolol XL (24 HR) Succ 50 MG TAB.ER.24H PO SCH (08:45)
[2017-02-15] MEDS: Pantoprazole 40 MG VIAL IVP SCH (08:45)
[2017-02-15] MEDS: Furosemide 40 MG TABLET PO SCH (08:45)
[2017-02-15] MEDS: Renal Vitamin 1 MG CAPSULE PO SCH (08:51)
[2017-02-15 09:29] LABS: Basophils % 0.1 %; Hematocrit 31.1 % (35.3-44.9); Hemoglobin 9.8 g/dL (11.5-15.4); Immature Granulocytes % 0.3 % (0-4); Lymphocytes # 0.9 K/mcL (0.6-4.6); Lymphocytes % 10.6 %; Mean Corpuscular HGB Conc 31.5 g/dL (31.6-35.5); Mean Corpuscular Volume 104.7 fL (83.0-100.0); Monocytes # 0.6 K/mcL (0.0-1.3); Monocytes % 6.9 %; Neutrophils # 7.1 K/mcL (1.6-8.9); Platelet Count 231 K/mcL (140-400); Red Blood Count 2.97 M/mcL (3.82-4.97); Red Cell Distribution Width 15.1 % (11.5-14.5); Segmented Neutrophils % 82.1 %
[2017-02-15] MEDS: Ondansetron 4 MG/2 ML VIAL IVP PRN (09:35)
[2017-02-15 09:53] LABS: Calcium 8.2 mg/dL (8.6-10.8)
--- NOTE | 2017-02-15 09:59 | Cardiology Progress Note ---
Date of Encounter: 02/15/17 Time of Encounter: 09:57 Assessment and Plan (1) CAD (coronary artery disease) Current Visit: Yes Status: Chronic S/P LHC yesterday for EKG changes, chest pain and elevated troponin. Triple vessel CAD--successful PTCA/BRYNN to pLAD, mRCA and distal LCx. DAPT (ASA and Plavix) uninterrupted x 1 year. Pt verbalizes understanding. BB and Statin, Imdur. Right femoral access site healing well. No bleeding, hematoma or ecchymosis noted. Cardiac rehab. Pt reports chest pain is much improved--still some atypical chest pain reproducible on palpation. HGB 9.8--down from admission, but has chronic anemia and has been in 9 range in the past. Denies active bleeding. Cardiology signing off. Reconsult PRN. Follow-up as outpt. Will coordinate. Qualifiers: Coronary Disease-Associated Artery/Lesion type: [place] artery [place] vs. transplanted heart: [place] heart Associated angina: angina presence unspecified Qualified Code(s): I25.10 - Atherosclerotic heart disease of [place] coronary artery without angina pectoris (2) CHF (congestive heart failure) Current Visit: Yes Status: Acute Presented with fluid overload on admission. H/o diastolic CHF. Acute on chronic CHFpEF. TTE shows normal LV function. Mild diastolic dysfunction. Noted to have RV hypokenesis. Patient also ESRD on dialysis. BNP 3702. CXR shows moderate CHF. Fluid removal per nephrology. Pt puts out very little urine. Low sodium diet. Strict I&O and daily weights. Qualifiers: Congestive heart failure type: unspecified congestive heart failure type Congestive heart failure chronicity: acute Qualified Code(s): I50.9 - Heart failure, unspecified Discussion w patient/family: The assessment and plan as outlined above was discussed with the patient and/or family members who expressed understanding and agreement. All questions were answered. Thank you for involving us in the care of your patient. Please call with any questions. I will discuss all the above with Dr. Mckenzie Florentino and make changes as necessary. Subjective Principal diagnosis: DCHF, chest pain Interval history: LHC yesterday triple vessel CAD--EF 55%, successful PTCA/BRYNN to pLAD, mRCA and distal LCx. Pt reports chest pain is much improved. Objective Vital Signs Temp Pulse Pulse Resp BP Pulse Ox 02/15/17 03:50 98.4 F 61 14 163/66 100 02/15/17 00:00 60 140/70 02/14/17 23:00 98.4 F 60 16 152/61 97 02/14/17 22:47 63 162/68 02/14/17 21:39 64 171/71 02/14/17 21:00 66 166/75 02/14/17 20:45 70 111/75 02/14/17 20:39 66 180/76 02/14/17 20:15 61 158/71 02/14/17 20:10 61 118/76 02/14/17 20:05 60 151/67 02/14/17 20:00 61 155/64 02/14/17 19:55 63 63 153/74 02/14/17 19:50 62 62 156/63 02/14/17 18:50 97.6 F 61 18 158/69 97 02/14/17 18:00 60 18 138/58 98 02/14/17 17:15 62 18 140/57 98 02/14/17 16:44 62 17 142/61 98 02/14/17 16:15 62 02/14/17 13:50 97.2 F L 17 119/55 02/14/17 13:35 98/49 02/14/17 13:20 94/50 02/14/17 13:05 109/59 02/14/17 12:50 116/76 02/14/17 12:35 97/58 02/14/17 12:20 97/54 02/14/17 12:05 101/50 02/14/17 11:50 100/52 02/14/17 11:35 93/48 02/14/17 11:20 103/50 02/14/17 11:05 104/86 02/14/17 10:50 99/46 02/14/17 10:35 127/49 02/14/17 10:20 132/51 02/14/17 10:05 97.3 F L 18 127/67 Intake and Output 02/14/17 02/15/17 02/15/17 23:59 07:59 15:59 Intake Total 980 / 980 Output Total 40 / 40 Balance -40 / -40 980 / 980 Intake: Oral 980 / 980 Output: Urine 40 / 40 Other: Meal npo Breakfast Percent of Meal Consumed 5% Stool Size Moderate Stool Consistency formed Stool Color Brown Blood Glucose* 140 General: Conversant, No Apparent Distress HEENT: Atraumatic, Normocephaly, Mucus Membranes Moist Neck: No JVD, Normal carotid pulses Cardiac: Reg Rate and Rhythm, Normal S1 and S2, No Murmur Lungs: Normal Breath Sounds, No Wheeze, Rales, Rhonchi Neuro: Alert and responsive, No focal deficits noted Abdomen: Soft, Non-Tender Skin: Other (right femoral access site healing well. No bleeding, hematoma or ecchymosis noted.) Musculoskeletal: Other (chest wall tender on palpation) Extremities: No Clubbing, No Cyanosis, No Edema, Normal Pulses Results 02/15/17 09:20 02/14/17 07:45 Lab Results 02/15/17 09:20 WBC 8.6 Hgb 9.8 L Hct 31.1 L Plt Count 231 Short CBC 02/15/17 Range/Units 09:20 WBC 8.6 (4.3-11.1) K/mcL Hgb 9.8 L (11.5-15.4) g/dL Hct 31.1 L (35.3-44.9) % Plt Count 231 (140-400) K/mcL Neutrophils # 7.1 (1.6-8.9) K/mcL Active Medications Albuterol Sulfate (Proventil Neb) 2.5 mg IH Q2H PRN PRN Reason: Shortness Of Breath/Wheezing Stop: 08/13/17 13:07 Albuterol/Ipratropium (Duoneb) 3 ml IH [id number] [facility], [facility]1983 Stop: 08/13/17 16:01 Last Admin: 02/15/17 08:05 Dose: Not Given Allopurinol (Zyloprim) 300 mg PO DAILY [facility], [facility]1983 Stop: 08/14/17 09:01 Last Admin: 02/15/17 08:44 Dose: 300 mg Amlodipine Besylate (Norvasc) 10 mg PO DAILY [facility]1983 PRN Reason: Protocol Stop: 08/14/17 09:01 Last Admin: 02/15/17 08:45 Dose: 10 mg Aspirin (Aspirin Ec) 81 mg PO DAILY [facility]1983 Stop: 08/14/17 09:01 Last Admin: 02/15/17 08:44 Dose: 81 mg Atorvastatin Calcium (Lipitor) 40 mg PO DAILY [facility]1983 Stop: 08/14/17 09:01 Last Admin: 02/15/17 08:45 Dose: 40 mg Calcium Acetate (Phos-Lo) 1,334 mg PO TIDWM CINDY Stop: 08/13/17 17:01 Last Admin: 02/15/17 08:44 Dose: 1,334 mg Cinacalcet (Sensipar) 30 mg PO DAILY CINDY Stop: 08/14/17 09:01 Last Admin: 02/15/17 08:51 Dose: 30 mg Clopidogrel Bisulfate (Plavix) 75 mg PO DAILY CINDY Stop: 08/17/17 09:01 Last Admin: 02/15/17 08:45 Dose: 75 mg Dextrose/Water (Dextrose 50% (Syg)) 25 ml IVP ONCE PRN PRN Reason: Hypoglycemia Last Admin: 02/12/17 05:51 Dose: 25 ml Dextrose/Water (Dextrose 50% (Syg)) 25 ml IVP Q15MIN PRN PRN Reason: Hypoglycemia Stop: 08/13/17 15:08 Duloxetine HCl (Cymbalta) 30 mg PO DAILY [facility] Stop: 08/14/17 09:01 Last Admin: 02/15/17 08:44 Dose: 30 mg Furosemide (Lasix) 40 mg PO DAILY [facility]1983 Stop: 08/14/17 09:01 Last Admin: 02/15/17 08:45 Dose: 40 mg Gabapentin (Neurontin) 300 mg PO DAILY [facility]1983 Stop: 08/14/17 09:01 Last Admin: 02/15/17 08:44 Dose: 300 mg Glucagon (Glucagen) 1 mg IM ONCE PRN PRN Reason: Hypoglycemia Stop: 08/14/17 11:30 Glucose (Gluctose) 15 gm PO ONCE PRN PRN Reason: Hypoglycemia Stop: 08/14/17 11:30 Glucose (Gluctose) 30 gm PO ONCE PRN PRN Reason: Hypoglycemia Stop: 08/14/17 11:30 Heparin Sodium (Porcine) (Heparin) 5,000 unit SQ Q12HCO [facility]1983 Stop: 08/16/17 18:01 Last Admin: 02/15/17 05:16 Dose: 5,000 unit Hydralazine HCl (Hydralazine) 50 mg PO Q8H [facility]1983 Stop: 08/13/17 13:46 Last Admin: 02/15/17 05:16 Dose: 50 mg Dextrose (Dextrose 5%) 1,000 mls @ 100 mls/hr IVC .Q10H PRN PRN Reason: HYPOGLYCEMIA Stop: 08/14/17 11:30 Sodium Chloride (0.9 % Sodium Chloride) 250 mls @ 937.5 mls/hr IVC .Q16M PRN PRN Reason: Hypotension Stop: 08/16/17 09:21 Sodium Chloride (0.9 % Sodium Chloride) 1,000 mls @ 0 mls/hr PRIME .Q0M CINDY PRN Reason: As Directed Stop: 08/16/17 09:31 Insulin Human Lispro (Humalog) 0 units SQ HS CINDY PRN Reason: Protocol Stop: 08/14/17 21:01 Last Admin: 02/14/17 20:54 Dose: Not Given Insulin Human Lispro (Humalog) 0 units SQ TIDAC CINDY PRN Reason: Protocol Stop: 08/14/17 11:31 Last Admin: 02/14/17 16:30 Dose: Not Given Isosorbide Mononitrate (Imdur) 120 mg PO DAILY [facility]1983 Stop: 08/14/17 09:01 Last Admin: 02/15/17 08:44 Dose: 120 mg Levothyroxine Sodium (Synthroid) 200 mcg PO 0630 [facility]1983 Stop: 08/14/17 09:01 Last Admin: 02/15/17 05:16 Dose: 200 mcg Lorazepam (Ativan) 0.5 mg PO BID PRN PRN Reason: Anxiety Stop: 08/13/17 13:34 Meloxicam (Mobic) 15 mg PO DAILY [facility] Stop: 08/14/17 09:01 Last Admin: 02/15/17 08:45 Dose: 15 mg Metoprolol Succinate (Toprol Xl) 100 mg PO DAILY [facility] Stop: 08/16/17 09:01 Last Admin: 02/15/17 08:45 Dose: 100 mg Naloxone HCl (Narcan) 0.4 mg IVP Q2MIN PRN PRN Reason: Opioid Reversal Stop: 08/13/17 13:03 Nitroglycerin (Nitroglycerin) 0.4 mg SL Q5MIN PRN PRN Reason: Chest Pain Stop: 08/16/17 16:03 Ondansetron HCl (Zofran) 4 mg IVP Q8HR PRN PRN Reason: Nausea And Vomiting Stop: 08/13/17 13:03 Last Admin: 02/15/17 09:35 Dose: 4 mg Oxycodone HCl (Roxicodone) 10 mg PO TID PRN PRN Reason: Pain Last Admin: 02/15/17 05:16 Dose: 10 mg Pantoprazole Sodium (Protonix) 40 mg IVP DAILY CINDY Stop: 08/14/17 09:01 Last Admin: 02/15/17 08:45 Dose: 40 mg Vitamin B Complex/Vit C/Folic Acid (Renal Caps Softgel) 1 mg PO DAILY CINDY Stop: 08/14/17 09:01 Last Admin: 02/15/17 08:51 Dose: 1 mg Vitamin D (Vitamin D) 1,000 unit PO DAILY CINDY Stop: 08/14/17 09:01 Last Admin: 02/15/17 08:44 Dose: 1,000 unit - Imaging and Cardiology Cardiac cath: report reviewed - EKG Interpretation EKG results cardiology: other (12 hr tele AVG HR 61, no significant pauses or arrhythmias) Consult Discharge Plan - Plan Additional Instructions: RISK FACTORS: STOP SMOKING: If you smoke, STOP. Smoking or tobacco use significantly increases your risk of heart disease because nicotine causes the arteries to narrow or constrict. It also causes fats to stick to the artery. Your chances of having a heart attack are greatly increased if you continue to smoke. For more information, call the education line for smoking cessation 9-994-AZYWRMF EAT A LOW FAT/CHOLESTEROL/SODIUM DIET: This diet may help reduce your chances of having a heart attack. LIFTING: Avoid lifting anything more than 10 pounds for 5-7 days Prior to straining, laughing, sneezing and/or coughing, apply manual pressure directly over insertion site. ACTIVITY: You may walk or climb stairs as tolerated You can resume sexual activity as tolerated In general, you are encouraged to engage in a minimum of 30 minutes or more of moderate intensity physical activity, such as brisk walking, daily or at least 3 -4 times weekly BATHING Do not submerge the site into water (bath tub, hot tub, swimming pool) for 1 week. This can be a source for infection into the blood stream. You may shower after 24 hours SITE CARE: After 24 hours, you may remove the dressing and leave the site open to air. Keep the site clean and dry. Clean gently and pat dry. You can expect bruising and tenderness that gradually resolve within a week or two. Return to work as instructed per your physician Resume driving as instructed per physician Keep all scheduled follow up appointments Resume medications as instructed IMPORTANT: If prescribed a Platelet Aggregation Inhibitor such as, Plavix, Brilinta or Effient: Duration of therapy is minimum one year These medications are often used in combination with Aspirin in prevention of future heart attacks Never discontinue unless consult with your Health Editor STROKE (CVA) Risk factors for a stroke are: Age, cigarette smoking, diabetes, excessive alcohol consumption, family history, high blood pressure, overweight, physical inactivity, prior stroke, heart attack, diagnosis of carotid artery stenosis or other artery disease. Warning signs: Sudden numbness or weakness of the face, arm or leg; especially on one side of the body, sudden confusion, trouble speaking or understanding, sudden trouble seeing in one or both eyes, sudden trouble walking, dizziness, loss of balance or coordination, sudden severe headache with no cause. Call 911 or go to the Emergency Room. CONGESTIVE HEART FAILURE: If you have been diagnosed with Congestive Heart Failure (CHF) and your symptoms return, make an appointment with your physician Weigh yourself daily. Notify your physician if you have a weight gain of two or more pounds in one day or five or more pounds in one week. If you experience any difficulty breathing, please call 911 BLEEDING: Although the risk of bleeding is minimal, it can happen. If you have any bleeding from the site, apply firm pressure above the puncture site for 10-15 minutes. If the bleeding does not stop, continue manual pressure and call 911 Contact your physician if: You develop a fever greater than 101 degrees Fahrenheit Your site becomes reddened or has any drainage You have an increase in pain or burning at the site or if a large knot forms at the site. If you experience chest pain, shortness of breath, dizziness, or extreme tiredness, stop the activity and rest. Please notify your physicians office if you experience any of these symptoms and they are not relieved by rest please call 911! Referrals: Hugo Mercedes MD [Primary Care Provider] -
[2017-02-15 10:11] LABS: Potassium 7.5 mEq/L (3.5-4.5)
[2017-02-15] MEDS ORDERED: Insulin DETEMIR 100 UNIT/ML X5UNITS SQ ONE (10:13)
--- NOTE | 2017-02-15 11:38 | Nephrology Progress Note ---
Date of Encounter: 02/15/17 Time of Encounter: 11:36 - Assessment and Plan (1) Chest pain Current Visit: Yes Status: Acute Patient with unstable angina and likely NSTEMI. Cardiology performed a cardiac cath with PTCA and stent placement to 3 vessels. She reports improvement in her chest discomfort and resolution of her dyspnea. Qualifiers: Chest pain type: unspecified Qualified Code(s): R07.9 - Chest pain, unspecified (2) ESRD (end stage renal disease) on dialysis Current Visit: No Status: Acute Patient receives dialysis MWF via a LANCE fistula. She is tolerating dialysis well. Adjust medications for renal function. Renal diet. I'm performing urgent dialysis today for metabolic acidosis and severe hyperkalemia. 38 minutes spent in the care of this patient with greater than one half of the time spent in coordination of care and/or counseling. (3) Elevated troponin I level Current Visit: No Status: Acute Per cardiology. S/P cardiac cath. (4) Diabetes mellitus Current Visit: No Status: Chronic Uncontrolled. Per primary team. Unclear why her blood sugars are so hard to control. Consider restarting insulin gtt. Discussed with Dr. hTao. 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 She may need adjustment in her antihypertensive medications. Qualifiers: Hypertension type: essential hypertension Qualified Code(s): I10 - Essential (primary) hypertension (6) Abdominal pain Current Visit: Yes Status: Acute The patient has diffuse abdominal pain of unclear etiology. This was discussed with her hospitalist. I recommend checking a lactic acid, clostridium difficile toxin, and a CT scan of her abdomen and pelvis. This is the first time she is letting anyone know that she has abdominal pain. This is pretty concerning especially given that she has hypotension which she has not had before. Qualifiers: Qualified Code(s): R10.9 - Unspecified abdominal pain Subjective Principal diagnosis: DCHF, chest pain Interval history: Patient seen and evaluated on dialysis. She received her cardiac catheter with PTCA and stent to 3 of her cardiac vessels. She reports that her breathing is much better and she no longer has chest discomfort. Now she is complaining of abdominal discomfort and states this has been present for a few days. She also is telling me that she has diarrhea that has been present for a few days as well. Dr. Thao is at the bedside and she is communicating this information to him. She reports that her nausea has improved, but she does have abdominal discomfort. Her review of systems otherwise is stable with the exception of right foot and right hand paresthesia. Objective - Vital Signs Vital signs: Vital Signs Temp Pulse Pulse Resp BP Pulse Ox 02/15/17 11:00 105/49 02/15/17 10:45 124/50 02/15/17 10:30 112/62 02/15/17 10:15 129/57 02/15/17 10:00 116/67 02/15/17 09:45 157/60 02/15/17 09:30 98.1 F 18 125/46 02/15/17 08:30 98.1 F 61 63 18 125/46 100 02/15/17 03:50 98.4 F 61 14 163/66 100 02/15/17 00:00 60 140/70 02/14/17 23:00 98.4 F 60 16 152/61 97 02/14/17 22:47 63 162/68 02/14/17 21:39 64 171/71 02/14/17 21:00 66 166/75 02/14/17 20:45 70 111/75 02/14/17 20:39 66 180/76 02/14/17 20:15 61 158/71 02/14/17 20:10 61 118/76 02/14/17 20:05 60 151/67 02/14/17 20:00 61 155/64 02/14/17 19:55 63 63 153/74 02/14/17 19:50 62 62 156/63 02/14/17 18:50 97.6 F 61 18 158/69 97 02/14/17 18:00 60 18 138/58 98 02/14/17 17:15 62 18 140/57 98 02/14/17 16:44 62 17 142/61 98 02/14/17 16:15 62 02/14/17 13:50 97.2 F L 17 119/55 02/14/17 13:35 98/49 02/14/17 13:20 94/50 02/14/17 13:05 109/59 02/14/17 12:50 116/76 02/14/17 12:35 97/58 02/14/17 12:20 97/54 02/14/17 12:05 101/50 02/14/17 11:50 100/52 Intake and Output 02/14/17 02/15/17 02/15/17 23:59 07:59 15:59 Intake Total 1580 / 1580 Output Total 40 / 40 0 / 0 Balance -40 / -40 1580 / 1580 Intake: Oral 980 / 980 Intake, Rinseback and Flushes 600 / 600 Output: Urine 40 / 40 0 / 0 Other: Meal npo Breakfast Percent of Meal Consumed 5% Stool Size Moderate Stool Consistency formed Stool Color Brown Weight 72.8 kg Blood Glucose* 140 576 Hemodialysis Net Fluid Removed 450 (mL) Patient Weight 02/15/17 23:59 Weight 72.8 kg - General Appearance General appearance: Present: well-developed, well-nourished Exam: Patient seen on dialysis. EENT: Present: ATNC Neck: Present: supple Respiratory: Present: clear (Anteriorly.) Cardiology: Present: edema (Trace edema), regular rate, regular rhythm Dialysis Vascular Access: Arteriovenous Fistula (Left upper arm) Gastrointestinal: Present: normoactive bowel sounds, tenderness (Diffuse tenderness to light palpation.), guarding (Mild guarding) Neurologic: Present: alert and oriented x3 Musculoskeletal: Present: no cyanosis Psychiatric: Present: mood/affect appropriate - Lab 02/15/17 09:20 02/15/17 09:20 Most recent lab results Calcium 8.2 mg/dL (8.6-10.8) L 02/15/17 09:20 Phosphorus 5.5 mg/dL (2.3-4.7) H 02/13/17 07:55 Magnesium 2.1 mg/dL (1.6-2.6) 02/12/17 05:55 Consult Discharge Plan - Plan Additional Instructions: RISK FACTORS: STOP SMOKING: If you smoke, STOP. Smoking or tobacco use significantly increases your risk of heart disease because nicotine causes the arteries to narrow or constrict. It also causes fats to stick to the artery. Your chances of having a heart attack are greatly increased if you continue to smoke. For more information, call the education line for smoking cessation 2-204-CJEQEHS EAT A LOW FAT/CHOLESTEROL/SODIUM DIET: This diet may help reduce your chances of having a heart attack. LIFTING: Avoid lifting anything more than 10 pounds for 5-7 days Prior to straining, laughing, sneezing and/or coughing, apply manual pressure directly over insertion site. ACTIVITY: You may walk or climb stairs as tolerated You can resume sexual activity as tolerated In general, you are encouraged to engage in a minimum of 30 minutes or more of moderate intensity physical activity, such as brisk walking, daily or at least 3 -4 times weekly BATHING Do not submerge the site into water (bath tub, hot tub, swimming pool) for 1 week. This can be a source for infection into the blood stream. You may shower after 24 hours SITE CARE: After 24 hours, you may remove the dressing and leave the site open to air. Keep the site clean and dry. Clean gently and pat dry. You can expect bruising and tenderness that gradually resolve within a week or two. Return to work as instructed per your physician Resume driving as instructed per physician Keep all scheduled follow up appointments Resume medications as instructed IMPORTANT: If prescribed a Platelet Aggregation Inhibitor such as, Plavix, Brilinta or Effient: Duration of therapy is minimum one year These medications are often used in combination with Aspirin in prevention of future heart attacks Never discontinue unless consult with your Hr Payroll Coordinator STROKE (CVA) Risk factors for a stroke are: Age, cigarette smoking, diabetes, excessive alcohol consumption, family history, high blood pressure, overweight, physical inactivity, prior stroke, heart attack, diagnosis of carotid artery stenosis or other artery disease. Warning signs: Sudden numbness or weakness of the face, arm or leg; especially on one side of the body, sudden confusion, trouble speaking or understanding, sudden trouble seeing in one or both eyes, sudden trouble walking, dizziness, loss of balance or coordination, sudden severe headache with no cause. Call 911 or go to the Emergency Room. CONGESTIVE HEART FAILURE: If you have been diagnosed with Congestive Heart Failure (CHF) and your symptoms return, make an appointment with your physician Weigh yourself daily. Notify your physician if you have a weight gain of two or more pounds in one day or five or more pounds in one week. If you experience any difficulty breathing, please call 911 BLEEDING: Although the risk of bleeding is minimal, it can happen. If you have any bleeding from the site, apply firm pressure above the puncture site for 10-15 minutes. If the bleeding does not stop, continue manual pressure and call 911 Contact your physician if: You develop a fever greater than 101 degrees Fahrenheit Your site becomes reddened or has any drainage You have an increase in pain or burning at the site or if a large knot forms at the site. If you experience chest pain, shortness of breath, dizziness, or extreme tiredness, stop the activity and rest. Please notify your physicians office if you experience any of these symptoms and they are not relieved by rest please call 911! Referrals: Hugo Mercedes MD [Primary Care Provider] -
[2017-02-15] MEDS ORDERED: 0.9 % Sodium Chloride 250 ML IVC PRN (11:48)
[2017-02-15] MEDS ORDERED: 0.9 % Sodium Chloride 1,000 ML PRIME SCH (12:00)
[2017-02-15] MEDS ORDERED: *HR* Dextrose 50 % in Water (Syg) 50 ML SYRINGE IVP PRN (14:43)
[2017-02-15] MEDS: Insulin Human Regular 100 UNIT in 0.9 % Sodium Chloride 100 ML IVC SCH ×2 (16:00→20:33)
[2017-02-15] MEDS: Acetaminophen 325 MG TABLET PO PRN (17:11)
--- NOTE | 2017-02-15 18:49 | Internal Med Progress Note ---
Date of Encounter: 02/15/17 Time of Encounter: 10:00 - Assessment and plan (1) DKA (diabetic ketoacidoses) Current Visit: Yes Status: Resolved Assessment and plan: DKA has resolved. Drip was restarted due to uncontrolled blood glucose. Qualifiers: Diabetes mellitus type: type 1 Diabetes mellitus complication detail: without coma Qualified Code(s): E10.10 - Type 1 diabetes mellitus with ketoacidosis without coma (2) ESRD (end stage renal disease) on dialysis Current Visit: No Status: Acute Assessment and plan: hemodialysis managed by nephrology (3) Anemia in ESRD (end-stage renal disease) Current Visit: No Status: Chronic Assessment and plan: Secondary to the above we will continue to monitor (4) Hypertension Current Visit: No Status: Chronic Assessment and plan: Home medications Qualifiers: Hypertension type: essential hypertension Qualified Code(s): I10 - Essential (primary) hypertension (5) Elevated troponin Current Visit: No Status: Acute Assessment and plan: -Due to patient's intermittent chest pain throughout the day she was reevaluated by cardiology Patient has now decided to proceed with [facility] which will be scheduled for . - Subjective Interval history: Patient blood glucose continues to be uncontrolled - Constitutional Vitals: Temp Pulse Resp BP Pulse Ox 97.6 F 72 16 108/50 100 02/15/17 16:05 02/15/17 16:05 02/15/17 16:05 02/15/17 16:05 02/15/17 16:05 General appearance: Present: A&O X 3, answers questions appropriately - GI/Abdominal GI/Abdominal exam: Present: normal bowel sounds, soft, tenderness (Generalized abdominal tenderness), no peritoneal signs. Absent: distended Internal Medicine: Result - Labs CBC & Chem 7: 02/15/17 09:20 02/15/17 09:20 Labs: Short CBC 02/15/17 Range/Units 09:20 WBC 8.6 (4.3-11.1) K/mcL Hgb 9.8 L (11.5-15.4) g/dL Hct 31.1 L (35.3-44.9) % Plt Count 231 (140-400) K/mcL Neutrophils # 7.1 (1.6-8.9) K/mcL BMP 02/15/17 09:20 Sodium 117 L* D Potassium 7.5 H* D Chloride 81 L Carbon Dioxide 15 L BUN 50 H Creatinine 5.44 H Glucose 1049 H* Calcium 8.2 L - Impressions Impressions Abdomen/Pelvis CT 02/15/17 15:00 IMPRESSION: 1. Marked urinary bladder mural thickening. Correlate with clinical evidence of cystitis. 2. Small bilateral pleural effusions, right greater than left, with adjacent passive atelectasis. More focal consolidation is noted in the left lower lobe. Correlate with clinical evidence of pneumonia. 3. Re- demonstration erosive changes at L3-L4, stable when compared to the previous exam. 4. Increased compression fracture at L1, now with loss of approximately 80% of the vertebral body height. 5. If this is indeed a noncontrast scan, the liver is hyperdense, measuring approximately 80 Hounsfield units. This could be secondary to contrast enhancement, if there has been a recent contrast scan (and there is evidence of contrast excretion from the kidneys, but no recent contrast scan is recorded in the [facility] system). Other etiologies include iron deposition, copper deposition, glycogen storage diseases, and certain medications (especially amiodarone). D/ / Alli Garcia MD / Alli Garcia MD Interpreting Provider: Alli Garcia MD Consult Discharge Plan - Plan Additional Instructions: RISK FACTORS: STOP SMOKING: If you smoke, STOP. Smoking or tobacco use significantly increases your risk of heart disease because nicotine causes the arteries to narrow or constrict. It also causes fats to stick to the artery. Your chances of having a heart attack are greatly increased if you continue to smoke. For more information, call the education line for smoking cessation 0-575-IFUDPFL EAT A LOW FAT/CHOLESTEROL/SODIUM DIET: This diet may help reduce your chances of having a heart attack. LIFTING: Avoid lifting anything more than 10 pounds for 5-7 days Prior to straining, laughing, sneezing and/or coughing, apply manual pressure directly over insertion site. ACTIVITY: You may walk or climb stairs as tolerated You can resume sexual activity as tolerated In general, you are encouraged to engage in a minimum of 30 minutes or more of moderate intensity physical activity, such as brisk walking, daily or at least 3 -4 times weekly BATHING Do not submerge the site into water (bath tub, hot tub, swimming pool) for 1 week. This can be a source for infection into the blood stream. You may shower after 24 hours SITE CARE: After 24 hours, you may remove the dressing and leave the site open to air. Keep the site clean and dry. Clean gently and pat dry. You can expect bruising and tenderness that gradually resolve within a week or two. Return to work as instructed per your physician Resume driving as instructed per physician Keep all scheduled follow up appointments Resume medications as instructed IMPORTANT: If prescribed a Platelet Aggregation Inhibitor such as, Plavix, Brilinta or Effient: Duration of therapy is minimum one year These medications are often used in combination with Aspirin in prevention of future heart attacks Never discontinue unless consult with your Wireless Team Member STROKE (CVA) Risk factors for a stroke are: Age, cigarette smoking, diabetes, excessive alcohol consumption, family history, high blood pressure, overweight, physical inactivity, prior stroke, heart attack, diagnosis of carotid artery stenosis or other artery disease. Warning signs: Sudden numbness or weakness of the face, arm or leg; especially on one side of the body, sudden confusion, trouble speaking or understanding, sudden trouble seeing in one or both eyes, sudden trouble walking, dizziness, loss of balance or coordination, sudden severe headache with no cause. Call 911 or go to the Emergency Room. CONGESTIVE HEART FAILURE: If you have been diagnosed with Congestive Heart Failure (CHF) and your symptoms return, make an appointment with your physician Weigh yourself daily. Notify your physician if you have a weight gain of two or more pounds in one day or five or more pounds in one week. If you experience any difficulty breathing, please call 911 BLEEDING: Although the risk of bleeding is minimal, it can happen. If you have any bleeding from the site, apply firm pressure above the puncture site for 10-15 minutes. If the bleeding does not stop, continue manual pressure and call 911 Contact your physician if: You develop a fever greater than 101 degrees Fahrenheit Your site becomes reddened or has any drainage You have an increase in pain or burning at the site or if a large knot forms at the site. If you experience chest pain, shortness of breath, dizziness, or extreme tiredness, stop the activity and rest. Please notify your physicians office if you experience any of these symptoms and they are not relieved by rest please call 911! Referrals: Hugo Mercedes MD [Primary Care Provider] -
[2017-02-15] MEDS ORDERED: Ipratropium/Albuterol Neb 3 ML IH PRN (20:06)
[2017-02-16 04:54] LABS: Phosphorous 5.1 mg/dL (2.3-4.7); Uric Acid 3.4 mg/dL (2.6-6.0)
[2017-02-16] MEDS: hydrALAZINE 25 MG TABLET PO SCH ×3 (05:42→20:18)
[2017-02-16] MEDS: *HR* Heparin 5,000 UNIT/ML VIAL SQ SCH ×2 (05:56→16:37)
[2017-02-16] MEDS: Renal Vitamin 1 MG CAPSULE PO SCH (07:59)
[2017-02-16] MEDS: amLODIPine 5 MG TABLET PO SCH (07:59)
[2017-02-16] MEDS: Calcium Acetate 667 MG CAPSULE PO SCH ×3 (08:00→16:33)
[2017-02-16] MEDS: Cholecalciferol (D-3) 1,000 UNIT TABLET PO SCH (08:00)
[2017-02-16] MEDS: Aspirin Enteric Coated 81 MG Tablet PO SCH (08:00)
[2017-02-16] MEDS: Metoprolol XL (24 HR) Succ 50 MG TAB.ER.24H PO SCH (08:00)
[2017-02-16] MEDS: Gabapentin 300 MG CAPSULE PO SCH (08:00)
[2017-02-16] MEDS: Pantoprazole 40 MG VIAL IVP SCH (08:00)
[2017-02-16] MEDS: Isosorbide MONOnitrate (24 HR) 60 MG TAB.ER.24H PO SCH (08:00)
[2017-02-16 08:24] LABS: Basophils % 0.3 %; Eosinophils # 0.1 K/mcL (0.0-0.6); Eosinophils % 1.2 %; Hematocrit 26.6 % (35.3-44.9); Immature Granulocytes % 0.2 % (0-4); Lymphocytes # 2.7 K/mcL (0.6-4.6); Lymphocytes % 28.8 %; Mean Corpuscular HGB Conc 33.8 g/dL (31.6-35.5); Mean Corpuscular Hemoglobin 33.5 pg (28.0-33.3); Mean Corpuscular Volume 98.9 fL (83.0-100.0); Mean Platelet Volume 11.3 fL (9.4-12.4); Monocytes % 10.6 %; Neutrophils # 5.4 K/mcL (1.6-8.9); Platelet Count 258 K/mcL (140-400); Red Blood Count 2.69 M/mcL (3.82-4.97); Red Cell Distribution Width 15.1 % (11.5-14.5); Segmented Neutrophils % 58.9 %
[2017-02-16 08:43] LABS: Potassium 4.6 mEq/L (3.5-4.5)
[2017-02-16] MEDS: Insulin DETEMIR 100 UNIT/ML X5UNITS SQ SCH ×2 (11:51→20:18)
[2017-02-16] MEDS: Insulin LISPRO 300 UNITS/3 ML VIAL SQ SCH ×2 (11:52→16:37)
--- NOTE | 2017-02-16 12:09 | Nephrology Progress Note ---
Date of Encounter: 02/16/17 Time of Encounter: 12:07 - Assessment and Plan (1) Chest pain Current Visit: Yes Status: Acute Patient with unstable angina and likely NSTEMI. Cardiology performed a cardiac cath with PTCA and stent placement to 3 vessels. She reports improvement in her chest discomfort and resolution of her dyspnea. Qualifiers: Chest pain type: unspecified Qualified Code(s): R07.9 - Chest pain, unspecified (2) ESRD (end stage renal disease) on dialysis Current Visit: No Status: Acute Patient receives dialysis MWF via a LANCE fistula. She is tolerating dialysis well. Adjust medications for renal function. Renal diet. (3) Elevated troponin I level Current Visit: No Status: Acute Per cardiology. S/P cardiac cath. (4) Diabetes mellitus Current Visit: No Status: Chronic Uncontrolled. Per primary team. Blood sugar is better today. Consider restarting her home insulin pump. Discussed with Dr. Thao. Qualifiers: Diabetes mellitus type: type 2 Diabetes mellitus complication status: with unspecified complications Diabetes mellitus jail insulin use: with termite renewal inspector use Qualified Code(s): E11.8 - Type 2 diabetes mellitus with unspecified complications; Z79.4 - terminal clerk (current) use of insulin (5) Hypertension Current Visit: No Status: Chronic She may need adjustment in her antihypertensive medications. Qualifiers: Hypertension type: essential hypertension Qualified Code(s): I10 - Essential (primary) hypertension (6) Abdominal pain Current Visit: Yes Status: Acute The patient has diffuse abdominal pain of unclear etiology. This was discussed with her hospitalist. Her abdominal pain is better today. Her lactic acid was normal. Her CT scan was unremarkable for an etiology. Continue to monitor. Qualifiers: Qualified Code(s): R10.9 - Unspecified abdominal pain Subjective Principal diagnosis: DCHF, chest pain Interval history: Patient seen. She received her cardiac catheter with PTCA and stent to 3 of her cardiac vessels. She reports that her breathing is much better and she no longer has chest discomfort. Her abdominal pain is slightly improved. Objective - Vital Signs Vital signs: Vital Signs Temp Pulse Resp BP Pulse Ox 02/16/17 11:50 98.2 F 55 16 148/65 95 02/16/17 08:00 98.3 F 56 16 131/60 97 02/16/17 04:36 97.7 F 54 18 102/53 97 02/16/17 04:06 53 02/16/17 00:33 97.9 F 55 14 109/48 96 02/16/17 00:00 59 02/15/17 20:00 98.4 F 67 18 106/54 97 02/15/17 19:47 16 98 02/15/17 16:05 97.6 F 72 16 108/50 100 02/15/17 13:44 97.6 F 18 121/57 02/15/17 13:31 116/49 02/15/17 13:15 135/54 02/15/17 13:00 112/63 02/15/17 12:45 113/48 02/15/17 12:30 100/44 02/15/17 12:15 109/40 Intake and Output 02/15/17 02/16/17 02/16/17 23:59 07:59 15:59 Intake Total 347.4 / 347.4 600 / 600 480 / 480 Output Total 0 / 0 0 / 0 0 / 0 Balance 347.4 / 347.4 600 / 600 480 / 480 Intake: IV Fluids 107.4 / 107.4 HumuLIN R 100 UNIT In 0.9 % 107.4 / 107.4 Sodium Chloride 100 ML @ Per Protocol IVC CONT CINDY Rx#: [id number] Oral 240 / 240 600 / 600 480 / 480 Output: Urine 0 / 0 0 / 0 0 / 0 Other: Meal Breakfast Percent of Meal Consumed 50% 50% Blood Glucose* 61 65 152 - General Appearance General appearance: Present: well-developed, well-nourished EENT: Present: ATNC Neck: Present: supple Additional Comments: Respirations are unlabored. Cardiology: Present: regular rate Integumentary: Present: warm and dry Neurologic: Present: alert and oriented x3 Psychiatric: Present: mood/affect appropriate - Lab 02/16/17 08:00 02/16/17 08:00 Most recent lab results Calcium 8.0 mg/dL (8.6-10.8) L 02/16/17 08:00 Phosphorus 5.1 mg/dL (2.3-4.7) H 02/16/17 04:02 Magnesium 2.1 mg/dL (1.6-2.6) 02/12/17 05:55 Consult Discharge Plan - Plan Additional Instructions: RISK FACTORS: STOP SMOKING: If you smoke, STOP. Smoking or tobacco use significantly increases your risk of heart disease because nicotine causes the arteries to narrow or constrict. It also causes fats to stick to the artery. Your chances of having a heart attack are greatly increased if you continue to smoke. For more information, call the education line for smoking cessation 2-557-KSRUIAF EAT A LOW FAT/CHOLESTEROL/SODIUM DIET: This diet may help reduce your chances of having a heart attack. LIFTING: Avoid lifting anything more than 10 pounds for 5-7 days Prior to straining, laughing, sneezing and/or coughing, apply manual pressure directly over insertion site. ACTIVITY: You may walk or climb stairs as tolerated You can resume sexual activity as tolerated In general, you are encouraged to engage in a minimum of 30 minutes or more of moderate intensity physical activity, such as brisk walking, daily or at least 3 -4 times weekly BATHING Do not submerge the site into water (bath tub, hot tub, swimming pool) for 1 week. This can be a source for infection into the blood stream. You may shower after 24 hours SITE CARE: After 24 hours, you may remove the dressing and leave the site open to air. Keep the site clean and dry. Clean gently and pat dry. You can expect bruising and tenderness that gradually resolve within a week or two. Return to work as instructed per your physician Resume driving as instructed per physician Keep all scheduled follow up appointments Resume medications as instructed IMPORTANT: If prescribed a Platelet Aggregation Inhibitor such as, Plavix, Brilinta or Effient: Duration of therapy is minimum one year These medications are often used in combination with Aspirin in prevention of future heart attacks Never discontinue unless consult with your Administrative Personal Assistant STROKE (CVA) Risk factors for a stroke are: Age, cigarette smoking, diabetes, excessive alcohol consumption, family history, high blood pressure, overweight, physical inactivity, prior stroke, heart attack, diagnosis of carotid artery stenosis or other artery disease. Warning signs: Sudden numbness or weakness of the face, arm or leg; especially on one side of the body, sudden confusion, trouble speaking or understanding, sudden trouble seeing in one or both eyes, sudden trouble walking, dizziness, loss of balance or coordination, sudden severe headache with no cause. Call 911 or go to the Emergency Room. CONGESTIVE HEART FAILURE: If you have been diagnosed with Congestive Heart Failure (CHF) and your symptoms return, make an appointment with your physician Weigh yourself daily. Notify your physician if you have a weight gain of two or more pounds in one day or five or more pounds in one week. If you experience any difficulty breathing, please call 911 BLEEDING: Although the risk of bleeding is minimal, it can happen. If you have any bleeding from the site, apply firm pressure above the puncture site for 10-15 minutes. If the bleeding does not stop, continue manual pressure and call 911 Contact your physician if: You develop a fever greater than 101 degrees Fahrenheit Your site becomes reddened or has any drainage You have an increase in pain or burning at the site or if a large knot forms at the site. If you experience chest pain, shortness of breath, dizziness, or extreme tiredness, stop the activity and rest. Please notify your physicians office if you experience any of these symptoms and they are not relieved by rest please call 911! Referrals: Hugo Mercedes MD [Primary Care Provider] -
--- NOTE | 2017-02-16 16:00 | Internal Med Progress Note ---
Date of Encounter: 02/16/17 Time of Encounter: 11:00 - Assessment and plan (1) DKA (diabetic ketoacidoses) Current Visit: Yes Status: Resolved Assessment and plan: -DKA has resolved. -Blood glucose levels continued to be uncontrolled. -She will be started on insulin pump today and will monitor blood glucose levels. Qualifiers: Diabetes mellitus type: type 1 Diabetes mellitus complication detail: without coma Qualified Code(s): E10.10 - Type 1 diabetes mellitus with ketoacidosis without coma (2) Abdominal pain Current Visit: Yes Status: Acute Assessment and plan: -She reports abdominal discomfort better today. -Abdominal CT without any acute findings. -Suspect secondary to resolved DKA and gastroparesis in addition to recent gastroenteritis. -Will continue to monitor. Qualifiers: Abdominal location: generalized Qualified Code(s): R10.84 - Generalized abdominal pain (3) ESRD (end stage renal disease) on dialysis Current Visit: No Status: Acute Assessment and plan: -Nephrology following with recommendations to continue scheduled hemodialysis. (4) Anemia in ESRD (end-stage renal disease) Current Visit: No Status: Chronic Assessment and plan: -Hemoglobin stable; suspect secondary to ESRD. -Will continue to monitor. (5) Hypertension Current Visit: No Status: Chronic Assessment and plan: -Blood pressures controlled; continue current medical management Qualifiers: Hypertension type: essential hypertension Qualified Code(s): I10 - Essential (primary) hypertension (6) Elevated troponin Current Visit: No Status: Acute Assessment and plan: -LHC on 02/14/17 showed triple-vessel coronary arterial disease and patient had successfully PTCA/drug-eluting stent placement in the proximal LAD, mid RCA and distal circumflex artery. (7) DVT prophylaxis Current Visit: No Status: Acute Assessment and plan: Subcutaneous heparin - Subjective Interval history: Patient blood glucose continues to be uncontrolled Patient reports the abdominal discomfort has improved. - Constitutional Vitals: Temp Pulse Resp BP Pulse Ox 98.2 F 55 16 148/65 95 02/16/17 11:50 02/16/17 11:50 02/16/17 11:50 02/16/17 11:50 02/16/17 11:50 General appearance: Present: A&O X 3, answers questions appropriately - Respiratory Respiratory exam: Present: CTAB. Absent: accessory muscle use, rales, rhonchi, wheezes - Cardiovascular Cardiovascular exam: Present: RRR, +S1, +S2. Absent: diastolic murmur, gallop, rubs, systolic murmur - GI/Abdominal GI/Abdominal exam: Present: normal bowel sounds, soft, tenderness (Mild generalized tenderness to palpation), no peritoneal signs. Absent: distended, guarding, rigid Internal Medicine: Result - Labs CBC & Chem 7: 02/16/17 08:00 02/16/17 08:00 Labs: Short CBC 02/16/17 Range/Units 08:00 WBC 9.2 (4.3-11.1) K/mcL Hgb 9.0 L (11.5-15.4) g/dL Hct 26.6 L (35.3-44.9) % Plt Count 258 (140-400) K/mcL Neutrophils # 5.4 (1.6-8.9) K/mcL BMP 02/16/17 08:00 Sodium 132 L D Potassium 4.6 H D Chloride 92 L Carbon Dioxide 29 BUN 35 H D Creatinine 3.62 H Glucose 90 Calcium 8.0 L - Impressions Impressions Abdomen/Pelvis CT 02/15/17 15:00 IMPRESSION: 1. Marked urinary bladder mural thickening. Correlate with clinical evidence of cystitis. 2. Small bilateral pleural effusions, right greater than left, with adjacent passive atelectasis. More focal consolidation is noted in the left lower lobe. Correlate with clinical evidence of pneumonia. 3. Re- demonstration erosive changes at L3-L4, stable when compared to the previous exam. 4. Increased compression fracture at L1, now with loss of approximately 80% of the vertebral body height. 5. If this is indeed a noncontrast scan, the liver is hyperdense, measuring approximately 80 Hounsfield units. This could be secondary to contrast enhancement, if there has been a recent contrast scan (and there is evidence of contrast excretion from the kidneys, but no recent contrast scan is recorded in the [facility] system). Other etiologies include iron deposition, copper deposition, glycogen storage diseases, and certain medications (especially amiodarone). D/ / Alli Garcia MD / Alli Garcia MD Interpreting Provider: Alli Garcia MD Consult Discharge Plan - Plan Additional Instructions: RISK FACTORS: STOP SMOKING: If you smoke, STOP. Smoking or tobacco use significantly increases your risk of heart disease because nicotine causes the arteries to narrow or constrict. It also causes fats to stick to the artery. Your chances of having a heart attack are greatly increased if you continue to smoke. For more information, call the education line for smoking cessation 5-345-UVNTGMD EAT A LOW FAT/CHOLESTEROL/SODIUM DIET: This diet may help reduce your chances of having a heart attack. LIFTING: Avoid lifting anything more than 10 pounds for 5-7 days Prior to straining, laughing, sneezing and/or coughing, apply manual pressure directly over insertion site. ACTIVITY: You may walk or climb stairs as tolerated You can resume sexual activity as tolerated In general, you are encouraged to engage in a minimum of 30 minutes or more of moderate intensity physical activity, such as brisk walking, daily or at least 3 -4 times weekly BATHING Do not submerge the site into water (bath tub, hot tub, swimming pool) for 1 week. This can be a source for infection into the blood stream. You may shower after 24 hours SITE CARE: After 24 hours, you may remove the dressing and leave the site open to air. Keep the site clean and dry. Clean gently and pat dry. You can expect bruising and tenderness that gradually resolve within a week or two. Return to work as instructed per your physician Resume driving as instructed per physician Keep all scheduled follow up appointments Resume medications as instructed IMPORTANT: If prescribed a Platelet Aggregation Inhibitor such as, Plavix, Brilinta or Effient: Duration of therapy is minimum one year These medications are often used in combination with Aspirin in prevention of future heart attacks Never discontinue unless consult with your Watch Crystal Edge Grinder STROKE (CVA) Risk factors for a stroke are: Age, cigarette smoking, diabetes, excessive alcohol consumption, family history, high blood pressure, overweight, physical inactivity, prior stroke, heart attack, diagnosis of carotid artery stenosis or other artery disease. Warning signs: Sudden numbness or weakness of the face, arm or leg; especially on one side of the body, sudden confusion, trouble speaking or understanding, sudden trouble seeing in one or both eyes, sudden trouble walking, dizziness, loss of balance or coordination, sudden severe headache with no cause. Call 911 or go to the Emergency Room. CONGESTIVE HEART FAILURE: If you have been diagnosed with Congestive Heart Failure (CHF) and your symptoms return, make an appointment with your physician Weigh yourself daily. Notify your physician if you have a weight gain of two or more pounds in one day or five or more pounds in one week. If you experience any difficulty breathing, please call 911 BLEEDING: Although the risk of bleeding is minimal, it can happen. If you have any bleeding from the site, apply firm pressure above the puncture site for 10-15 minutes. If the bleeding does not stop, continue manual pressure and call 911 Contact your physician if: You develop a fever greater than 101 degrees Fahrenheit Your site becomes reddened or has any drainage You have an increase in pain or burning at the site or if a large knot forms at the site. If you experience chest pain, shortness of breath, dizziness, or extreme tiredness, stop the activity and rest. Please notify your physicians office if you experience any of these symptoms and they are not relieved by rest please call 911! Referrals: Hugo Mercedes MD [Primary Care Provider] -
[2017-02-16] MEDS: *HR* OxyCODONE Immed Rel 5 MG TABLET PO PRN (16:33)
[2017-02-16] MEDS: Acetaminophen 325 MG TABLET PO PRN (20:20)
[2017-02-16] MEDS ORDERED: Insulin LISPRO 300 UNITS/3 ML VIAL SQ SCH (21:00)
[2017-02-17] MEDS: *HR* OxyCODONE Immed Rel 5 MG TABLET PO PRN ×2 (00:10→15:11)
[2017-02-17] MEDS: hydrALAZINE 25 MG TABLET PO SCH ×2 (06:15→14:47)
[2017-02-17] MEDS: *HR* Heparin 5,000 UNIT/ML VIAL SQ SCH ×2 (06:15→18:09)
[2017-02-17] MEDS: Insulin LISPRO 300 UNITS/3 ML VIAL SQ SCH ×3 (08:09→18:06)
[2017-02-17] MEDS: Calcium Acetate 667 MG CAPSULE PO SCH ×3 (08:10→18:09)
[2017-02-17] MEDS: Aspirin Enteric Coated 81 MG Tablet PO SCH (08:11)
[2017-02-17] MEDS: Gabapentin 300 MG CAPSULE PO SCH (08:12)
[2017-02-17] MEDS: Isosorbide MONOnitrate (24 HR) 60 MG TAB.ER.24H PO SCH (08:12)
[2017-02-17] MEDS: Pantoprazole 40 MG VIAL IVP SCH (08:13)
[2017-02-17] MEDS: amLODIPine 5 MG TABLET PO SCH (08:13)
[2017-02-17] MEDS: Renal Vitamin 1 MG CAPSULE PO SCH (08:13)
[2017-02-17] MEDS: Cholecalciferol (D-3) 1,000 UNIT TABLET PO SCH (08:14)
[2017-02-17] MEDS: Metoprolol XL (24 HR) Succ 50 MG TAB.ER.24H PO SCH (08:18)
[2017-02-17 08:42] LABS: Basophils # 0.1 K/mcL (0.0-0.2); Basophils % 0.5 %; Eosinophils # 0.2 K/mcL (0.0-0.6); Hematocrit 30.7 % (35.3-44.9); Hemoglobin 10.3 g/dL (11.5-15.4); Immature Granulocytes % 0.3 % (0-4); Immature Platelets 5.8 % (1.1-6.1); Lymphocytes # 2.1 K/mcL (0.6-4.6); Lymphocytes % 21.3 %; Mean Corpuscular HGB Conc 33.6 g/dL (31.6-35.5); Mean Corpuscular Hemoglobin 33.6 pg (28.0-33.3); Mean Platelet Volume 11.1 fL (9.4-12.4); Monocytes # 0.9 K/mcL (0.0-1.3); Monocytes % 8.8 %; Neutrophils # 6.6 K/mcL (1.6-8.9); Nucleated Red Blood Cells 0.2 /100 WBC (0); Platelet Count 286 K/mcL (140-400); Red Blood Count 3.07 M/mcL (3.82-4.97); Red Cell Distribution Width 15.3 % (11.5-14.5); Segmented Neutrophils % 67.1 %
[2017-02-17] MEDS ORDERED: 0.9 % Sodium Chloride 250 ML IVC PRN (08:44)
[2017-02-17 08:58] LABS: Calcium 8.1 mg/dL (8.6-10.8); Potassium 4.3 mEq/L (3.5-4.5)
[2017-02-17] MEDS ORDERED: 0.9 % Sodium Chloride 2,000 ML ONE (11:53)
[2017-02-17] MEDS: Insulin DETEMIR 100 UNIT/ML X5UNITS SQ SCH (14:46)
--- NOTE | 2017-02-17 17:14 | Discharge Summary ---
Date of Encounter: 02/17/17 Time of Encounter: 11:00 - Discharge Diagnosis (1) DKA (diabetic ketoacidoses) Priority: Primary Status: Resolved Qualifiers: Diabetes mellitus type: type 1 Diabetes mellitus complication detail: without coma Qualified Code(s): E10.10 - Type 1 diabetes mellitus with ketoacidosis without coma (2) Abdominal pain Priority: Secondary Status: Acute Qualifiers: Abdominal location: generalized Qualified Code(s): R10.84 - Generalized abdominal pain (3) ESRD (end stage renal disease) on dialysis Priority: Secondary Status: Acute (4) Anemia in ESRD (end-stage renal disease) Priority: Secondary Status: Chronic (5) Hypertension Priority: Secondary Status: Chronic Qualifiers: Hypertension type: essential hypertension Qualified Code(s): I10 - Essential (primary) hypertension (6) Elevated troponin Priority: Primary Status: Acute - Discharge Medications Prescriptions: Insulin DETEMIR [Levemir] 10 unit SQ DAILY #30 Home Medications: Levothyroxine Sodium [Synthroid] 200 mcg PO DAILY 02/08/16 [History] Polyethylene Glycol 3350 [MiraLAX] 17 gm PO DAILY PRN 02/08/16 [History] amLODIPine [Norvasc] 10 mg PO DAILY 02/14/16 [History] Aspirin [Lo-Dose Aspirin EC] 81 mg PO DAILY 05/26/16 [History] Atorvastatin [Lipitor] 40 mg PO DAILY 05/26/16 [History] Calcium Acetate [Phos-LO] 1,334 mg PO TIDWM 05/26/16 [History] Duloxetine HCl [Cymbalta] 30 mg PO DAILY 05/26/16 [History] Ergocalciferol (VITAMIN D2) [Vitamin D2] 50,000 unit PO WE 05/26/16 [History] Ezetimibe [Zetia] 10 mg PO DAILY 05/26/16 [History] Febuxostat [Uloric] 80 mg PO DAILY 05/26/16 [History] Furosemide [Lasix] 40 mg PO DAILY 05/26/16 [History] Gabapentin [Neurontin] 300 mg PO DAILY 05/26/16 [History] Hydralazine HCl 50 mg PO Q8H 05/26/16 [History] Isosorbide MONOnitrate (24 HR) [Imdur] 120 mg PO DAILY 05/26/16 [History] LORazepam [Ativan] 0.5 - 1 mg PO BID PRN 05/26/16 [History] Metoprolol XL (24 HR) Succ [Toprol Xl] 50 mg PO DAILY 05/26/16 [History] Renal Vitamin [Renal Caps Softgel] 1 mg PO DAILY 05/26/16 [History] Allopurinol [Zyloprim 300 MG] 300 mg PO DAILY 05/27/16 [History] Insulin LISPRO [HumaLOG] 0 units SQ DAILY PRN MDD 110 units daily 05/27/16 [ History] Meloxicam 15 mg PO DAILY 05/27/16 [History] Tramadol HCl [Ultram] 50 mg PO Q6HR PRN 08/11/16 [History] Cinacalcet [Sensipar] 30 mg PO DAILY 01/06/17 [History] Oxycodone HCl 10 mg PO TID PRN 01/06/17 [History] Insulin Glargine [Lantus] 10 unit SQ DAILY 02/11/17 [History] Insulin DETEMIR [Levemir] 10 unit SQ DAILY #30 02/17/17 [Rx] Allergies/Adverse Reactions: 3 Allergy/AdvReac Type Severity Reaction Status Date / Time IVP DYE Allergy See Uncoded 01/01/16 09:03 Comments ivp dye Allergy See Uncoded 05/27/16 08:00 Comments Procedures/tests Complete & Pending: Procedures Performed prior 72 hours Category Date Time Status CT abd pelvis wo no iv no oral [CT] Routine Cat Scan 02/15/17 15:00 Completed Date of admission: 02/11/17 13:38 Primary care physician: Hugo Mercedes MD Consults: 02/11/17 14:00 Consult to Dialysis [CONS] ONCE 02/11/17 14:15 Consult to Invasive Line Access Team [CONS] Routine Reason for Consult: LIMITED ACCESS Line Type: EPIV 02/12/17 07:00 Consult to Dialysis [CONS] ONCE 02/12/17 07:03 Consult to Cardiology [CONS] Routine Comment: Consulting Provider: [facility] [place] Reason for Consult: Elevated troponin, EKG changes Time Notified: 08:10 Call Completed: Yes 02/13/17 10:41 Consult to Physical Therapy [CONS] Stat Comment: Evaluate, develop and implement POC Reason for Consult: needs to ambulate; eval for any chest pain or shortness of breath 02/13/17 16:02 Consult to Cardiology [CONS] Routine Comment: Consulting Provider: [facility] [place] Reason for Consult: Per Dr. Walker Lay with nephrology to re-evaluate for LHC. Call Completed: Yes 02/14/17 09:30 Consult to Dialysis [CONS] ONCE 02/14/17 16:05 Consult to Cardiac Rehabilitation-Phase1 [CONS] Routine Comment: Reason for Consult: CAD s/p PCI Call Completed: Yes 02/15/17 12:00 Consult to Dialysis [CONS] ONCE 02/17/17 08:45 Consult to Dialysis [CONS] ONCE - Patient Status Disposition: Home Health Service Condition: Critical - Discharge Instructions Follow Up With: Hugo Mercedes MD [Primary Care Provider] - Juana Obando [Registered Nurse] - 03/06/17 11:00 am ([facility] [address] [place] [address] Medical Office Building - [address]) Additional Instructions: RISK FACTORS: STOP SMOKING: If you smoke, STOP. Smoking or tobacco use significantly increases your risk of heart disease because nicotine causes the arteries to narrow or constrict. It also causes fats to stick to the artery. Your chances of having a heart attack are greatly increased if you continue to smoke. For more information, call the education line for smoking cessation 5-463-IKHCBRC EAT A LOW FAT/CHOLESTEROL/SODIUM DIET: This diet may help reduce your chances of having a heart attack. LIFTING: Avoid lifting anything more than 10 pounds for 5-7 days Prior to straining, laughing, sneezing and/or coughing, apply manual pressure directly over insertion site. ACTIVITY: You may walk or climb stairs as tolerated You can resume sexual activity as tolerated In general, you are encouraged to engage in a minimum of 30 minutes or more of moderate intensity physical activity, such as brisk walking, daily or at least 3 -4 times weekly BATHING Do not submerge the site into water (bath tub, hot tub, swimming pool) for 1 week. This can be a source for infection into the blood stream. You may shower after 24 hours SITE CARE: After 24 hours, you may remove the dressing and leave the site open to air. Keep the site clean and dry. Clean gently and pat dry. You can expect bruising and tenderness that gradually resolve within a week or two. Return to work as instructed per your physician Resume driving as instructed per physician Keep all scheduled follow up appointments Resume medications as instructed IMPORTANT: If prescribed a Platelet Aggregation Inhibitor such as, Plavix, Brilinta or Effient: Duration of therapy is minimum one year These medications are often used in combination with Aspirin in prevention of future heart attacks Never discontinue unless consult with your Edger Saw Operator STROKE (CVA) Risk factors for a stroke are: Age, cigarette smoking, diabetes, excessive alcohol consumption, family history, high blood pressure, overweight, physical inactivity, prior stroke, heart attack, diagnosis of carotid artery stenosis or other artery disease. Warning signs: Sudden numbness or weakness of the face, arm or leg; especially on one side of the body, sudden confusion, trouble speaking or understanding, sudden trouble seeing in one or both eyes, sudden trouble walking, dizziness, loss of balance or coordination, sudden severe headache with no cause. Call 911 or go to the Emergency Room. CONGESTIVE HEART FAILURE: If you have been diagnosed with Congestive Heart Failure (CHF) and your symptoms return, make an appointment with your physician Weigh yourself daily. Notify your physician if you have a weight gain of two or more pounds in one day or five or more pounds in one week. If you experience any difficulty breathing, please call 911 BLEEDING: Although the risk of bleeding is minimal, it can happen. If you have any bleeding from the site, apply firm pressure above the puncture site for 10-15 minutes. If the bleeding does not stop, continue manual pressure and call 911 Contact your physician if: You develop a fever greater than 101 degrees Fahrenheit Your site becomes reddened or has any drainage You have an increase in pain or burning at the site or if a large knot forms at the site. If you experience chest pain, shortness of breath, dizziness, or extreme tiredness, stop the activity and rest. Please notify your physicians office if you experience any of these symptoms and they are not relieved by rest please call 911! Hospital course: Patient is a 71 year old female with past medical history significant for diabetes, end stage renal disease (dialysis Fridays) osteomyelitis of vertebral lumbar region, hypertension, obstructive sleep apnea on CPAP, COPD oxygen dependent who presented to the ER on 02/11/17 due to shortness of breath. She reported waking up the morning of admission with shortness of breath. EMS were notified upon arrival Spo2 was at 80%. Patient does have end-stage renal disease she was dialyzed and had approximately 5 L removed. Apparently she had had a 5-1/2 pound weight gain in 4 days. She stated that she had been compliant with medications. In addition, she also reported of occasional chest tightness. In the ER patient was found to be in DKA and also in acute heart failure with elevated cardiac biomarkers. Patient was admitted to medical floor for DKA management and to rule out ACS. During patients hospital stay, cardiology was consult for non-STEMI and LHC on 02/14/17 showed triple-vessel coronary arterial disease and patient had successfully PTCA/drug-eluting stent placement in the proximal LAD, mid RCA and distal circumflex artery. Patients DKA resolved on insulin drip and patients blood glucose normalized after her insulin pump was restarted with addition of basal insulin. She also receive hemodialysis for ESRD. Patient will be discharged to follow-up with card checker for further medical management of uncontrolled diabetes. - Time Spent with Patient Total time spent providing and/or coordinating discharge services: Less than 30 minutes - Constitutional Vitals: Temp Pulse Resp BP Pulse Ox 98.1 F 67 17 136/56 96 02/17/17 15:34 02/17/17 15:34 02/17/17 15:34 02/17/17 15:34 02/17/17 15:34 General appearance: Present: A&O X 3, answers questions appropriately - Cardiovascular Cardiovascular exam: Present: RRR, +S1, +S2. Absent: diastolic murmur, gallop, rubs, systolic murmur - VTE Documentation of Mechanical Device: Graduated compression elastic hosiery
--- NOTE | 2017-02-17 17:15 | Physician Discharge Referral ---
- Diagnosis (1) DKA (diabetic ketoacidoses) Status: Resolved (2) Abdominal pain Status: Acute (3) ESRD (end stage renal disease) on dialysis Status: Acute (4) Anemia in ESRD (end-stage renal disease) Status: Chronic (5) Hypertension Status: Chronic (6) Elevated troponin Status: Acute - Respiratory Orders Smoking Cessation: Smoking cessation has been advised. For more information, call the [employer] Quit Line at 3-255-OWJX-NOW. - Transfer Medications Prescriptions: Insulin DETEMIR [Levemir] 10 unit SQ DAILY #30 Home Medications: Levothyroxine Sodium [Synthroid] 200 mcg PO DAILY 02/08/16 [History] Polyethylene Glycol 3350 [MiraLAX] 17 gm PO DAILY PRN 02/08/16 [History] amLODIPine [Norvasc] 10 mg PO DAILY 02/14/16 [History] Aspirin [Lo-Dose Aspirin EC] 81 mg PO DAILY 05/26/16 [History] Atorvastatin [Lipitor] 40 mg PO DAILY 05/26/16 [History] Calcium Acetate [Phos-LO] 1,334 mg PO TIDWM 05/26/16 [History] Duloxetine HCl [Cymbalta] 30 mg PO DAILY 05/26/16 [History] Ergocalciferol (VITAMIN D2) [Vitamin D2] 50,000 unit PO WE 05/26/16 [History] Ezetimibe [Zetia] 10 mg PO DAILY 05/26/16 [History] Febuxostat [Uloric] 80 mg PO DAILY 05/26/16 [History] Furosemide [Lasix] 40 mg PO DAILY 05/26/16 [History] Gabapentin [Neurontin] 300 mg PO DAILY 05/26/16 [History] Hydralazine HCl 50 mg PO Q8H 05/26/16 [History] Isosorbide MONOnitrate (24 HR) [Imdur] 120 mg PO DAILY 05/26/16 [History] LORazepam [Ativan] 0.5 - 1 mg PO BID PRN 05/26/16 [History] Metoprolol XL (24 HR) Succ [Toprol Xl] 50 mg PO DAILY 05/26/16 [History] Renal Vitamin [Renal Caps Softgel] 1 mg PO DAILY 05/26/16 [History] Allopurinol [Zyloprim 300 MG] 300 mg PO DAILY 05/27/16 [History] Insulin LISPRO [HumaLOG] 0 units SQ DAILY PRN MDD 110 units daily 05/27/16 [ History] Meloxicam 15 mg PO DAILY 05/27/16 [History] Tramadol HCl [Ultram] 50 mg PO Q6HR PRN 08/11/16 [History] Cinacalcet [Sensipar] 30 mg PO DAILY 01/06/17 [History] Oxycodone HCl 10 mg PO TID PRN 01/06/17 [History] Insulin Glargine [Lantus] 10 unit SQ DAILY 02/11/17 [History] Insulin DETEMIR [Levemir] 10 unit SQ DAILY #30 02/17/17 [Rx] Allergies/Adverse Reactions: 3 Allergy/AdvReac Type Severity Reaction Status Date / Time IVP DYE Allergy See Uncoded 01/01/16 09:03 Comments ivp dye Allergy See Uncoded 05/27/16 08:00 Comments Certification: Further, I certify that my clinical findings support that this patient is homebound (i.e. absences from home require considerable and taxing effort and are for medical reasons or jewish services or infrequently or short duration when for other reasons) because: Homebound Reason: Patient requires assistance of a person or device to safely leave home Attestation: My signature below is to certify that this patient is under my care and that I, or nurse practitioner, or a physician's assistant family teacher working with me, has a face-to -face encounter with this patient.
--- NOTE | 2017-02-17 17:58 | Nephrology Progress Note ---
Date of Encounter: 02/17/17 Time of Encounter: 11:00 - Assessment and Plan (1) ESRD (end stage renal disease) on dialysis Current Visit: No Status: Acute Continue HD with UF as tolerated Next HD for friday outpatient if discharged Lytes stable overall (2) Hyponatremia Current Visit: No Status: Acute Sodium improving at 132, will monitor (3) Anemia in ESRD (end-stage renal disease) Current Visit: No Status: Chronic Hgb low but improving at 10.3, will monitor Subjective Principal diagnosis: DCHF, chest pain Interval history: Interim events noted. Pt seen and examined on HD this am feeling better after her LHC with stents placed. No chest pain or SOB. Hopeful for discharged and improving energy level. Objective - Vital Signs Vital signs: Vital Signs Temp Pulse Resp BP Pulse Ox 02/17/17 15:34 98.1 F 67 17 136/56 96 02/17/17 14:00 98.4 F 16 145/73 02/17/17 13:50 145/64 02/17/17 13:20 168/79 02/17/17 12:50 163/62 02/17/17 12:20 141/70 02/17/17 11:50 127/68 02/17/17 11:20 129/70 02/17/17 10:50 135/59 02/17/17 10:20 138/71 02/17/17 09:50 97.5 F L 18 146/77 02/17/17 07:22 97.5 F L 59 16 104/62 99 02/17/17 05:05 97.9 F 51 16 113/58 100 02/17/17 00:10 48 02/16/17 23:36 98 F 52 18 126/63 95 02/16/17 19:58 54 02/16/17 19:22 97.9 F 52 18 104/45 94 Intake and Output 02/17/17 02/17/17 02/17/17 07:59 15:59 23:59 Intake Total 1360 / 1360 Output Total 3600 / 3600 Balance -2240 / -2240 Intake: Oral 1060 / 1060 Intake, Rinseback and Flushes 300 / 300 Output: Urine 0 / 0 Total Dialysis (HD) Output 3600 / 3600 Other: Meal Breakfast Percent of Meal Consumed 100% Blood Glucose* 203 105 Hemodialysis Net Fluid Removed 3000 (mL) - General Appearance General appearance: Present: frail (NAD) EENT: Present: ATNC, mucous membranes moist Neck: Present: no JVD, supple Respiratory: Present: clear (ant bilat) Cardiology: Present: no edema, normal S1, normal S2 Dialysis Vascular Access: Arteriovenous Fistula thrill: Yes bruit: Yes Gastrointestinal: Present: no tenderness, no guarding Integumentary: Present: no rash, warm and dry Neurologic: Present: no focal deficit Musculoskeletal: Present: no deformities Psychiatric: Present: mood/affect appropriate, cooperative - Lab 02/17/17 08:28 02/17/17 08:28 Most recent lab results Calcium 8.1 mg/dL (8.6-10.8) L 02/17/17 08:28 Phosphorus 5.1 mg/dL (2.3-4.7) H 02/16/17 04:02 Magnesium 2.1 mg/dL (1.6-2.6) 02/12/17 05:55 - VTE Documentation of Mechanical Device: Graduated compression elastic hosiery Consult Discharge Plan - Plan Additional Instructions: RISK FACTORS: STOP SMOKING: If you smoke, STOP. Smoking or tobacco use significantly increases your risk of heart disease because nicotine causes the arteries to narrow or constrict. It also causes fats to stick to the artery. Your chances of having a heart attack are greatly increased if you continue to smoke. For more information, call the education line for smoking cessation 7-585-ODXZSUW EAT A LOW FAT/CHOLESTEROL/SODIUM DIET: This diet may help reduce your chances of having a heart attack. LIFTING: Avoid lifting anything more than 10 pounds for 5-7 days Prior to straining, laughing, sneezing and/or coughing, apply manual pressure directly over insertion site. ACTIVITY: You may walk or climb stairs as tolerated You can resume sexual activity as tolerated In general, you are encouraged to engage in a minimum of 30 minutes or more of moderate intensity physical activity, such as brisk walking, daily or at least 3 -4 times weekly BATHING Do not submerge the site into water (bath tub, hot tub, swimming pool) for 1 week. This can be a source for infection into the blood stream. You may shower after 24 hours SITE CARE: After 24 hours, you may remove the dressing and leave the site open to air. Keep the site clean and dry. Clean gently and pat dry. You can expect bruising and tenderness that gradually resolve within a week or two. Return to work as instructed per your physician Resume driving as instructed per physician Keep all scheduled follow up appointments Resume medications as instructed IMPORTANT: If prescribed a Platelet Aggregation Inhibitor such as, Plavix, Brilinta or Effient: Duration of therapy is minimum one year These medications are often used in combination with Aspirin in prevention of future heart attacks Never discontinue unless consult with your Director Of Preclinical Research STROKE (CVA) Risk factors for a stroke are: Age, cigarette smoking, diabetes, excessive alcohol consumption, family history, high blood pressure, overweight, physical inactivity, prior stroke, heart attack, diagnosis of carotid artery stenosis or other artery disease. Warning signs: Sudden numbness or weakness of the face, arm or leg; especially on one side of the body, sudden confusion, trouble speaking or understanding, sudden trouble seeing in one or both eyes, sudden trouble walking, dizziness, loss of balance or coordination, sudden severe headache with no cause. Call 911 or go to the Emergency Room. CONGESTIVE HEART FAILURE: If you have been diagnosed with Congestive Heart Failure (CHF) and your symptoms return, make an appointment with your physician Weigh yourself daily. Notify your physician if you have a weight gain of two or more pounds in one day or five or more pounds in one week. If you experience any difficulty breathing, please call 911 BLEEDING: Although the risk of bleeding is minimal, it can happen. If you have any bleeding from the site, apply firm pressure above the puncture site for 10-15 minutes. If the bleeding does not stop, continue manual pressure and call 911 Contact your physician if: You develop a fever greater than 101 degrees Fahrenheit Your site becomes reddened or has any drainage You have an increase in pain or burning at the site or if a large knot forms at the site. If you experience chest pain, shortness of breath, dizziness, or extreme tiredness, stop the activity and rest. Please notify your physicians office if you experience any of these symptoms and they are not relieved by rest please call 911! Referrals: Hugo Mercedes MD [Primary Care Provider] - Juana Obando [Registered Nurse] - 03/06/17 11:00 am ([facility] [address] [place] [id number] Medical Office Building - [address]) Prescriptions: Insulin DETEMIR [Levemir] 10 unit SQ DAILY #30
[2017-02-17 19:12] VITALS: BP 136/56
== END 2017-02-17 19:40 | disposition home health service (06) | DRG 246 ==
LOC: EMEROO 09:12 → SUATTDRO 13:38 → 2NNU 13:38
PROVIDERS: ADMIT Internal Medicine; ATTEND Hospitalist

== ENCOUNTER 2017-02-27 11:49 | Inpatient (IN) ==
[2017-02-27 12:31] LABS: Hematocrit 36.3 % (35.3-44.9); Hemoglobin 11.8 g/dL (11.5-15.4); Mean Corpuscular HGB Conc 32.5 g/dL (31.6-35.5); Mean Corpuscular Hemoglobin 32.6 pg (28.0-33.3); Mean Corpuscular Volume 100.3 fL (83.0-100.0); Mean Platelet Volume 10.5 fL (9.4-12.4); Platelet Count 317 K/mcL (140-400); Red Blood Count 3.62 M/mcL (3.82-4.97); Red Cell Distribution Width 14.6 % (11.5-14.5)
--- NOTE | 2017-02-27 12:42 | Emergency Department Note ---
Disposition Clinical Impression: Anticoagulation management encounter, ESRD (end stage renal disease) GI bleed Qualifiers: GI bleed type/associated pathology: anorectal hemorrhage Qualified Code(s): K62.5 - Hemorrhage of anus and rectum Disposition: Admitted As Inpatient Condition: Fair Referrals: Hugo Mercedes MD [Primary Care Provider] - Forms: ED Satisfaction Letter GI Bleed HPI - General Chief complaint: ED GI Bleed Stated complaint: Rectal Bleed Time Seen by Provider: 02/27/17 12:01 Source: patient Limitations: no limitations Nursing Notes Reviewed: Yes Vital Signs Reviewed: Yes - History of Present Illness HPI Narrative: Presents with red rectal bleeding which started last night at home and does have generalized abdominal pain which is difficult for her to describe and it is constant. She does take aspirin and Plavix secondary to cardiac stents which were placed to 3 weeks ago. She did have a fall when she lost her balance in the bathroom 2 or 3 days ago and fell onto her bottom but did not hit her head. She denies any head pain. She does not have any fever or bruising of the skin. Social history: No smoking or alcohol. Is here with her - Related Data Home Medications Medication Instructions Recorded Confirmed Levothyroxine Sodium [Synthroid] 200 mcg PO DAILY 02/08/16 02/27/17 Polyethylene Glycol 3350 [MiraLAX] 17 gm PO DAILY PRN 02/08/16 02/27/17 amLODIPine [Norvasc] 10 mg PO DAILY 02/14/16 02/27/17 Aspirin [Lo-Dose Aspirin EC] 81 mg PO DAILY 05/26/16 02/27/17 Atorvastatin [Lipitor] 40 mg PO DAILY 05/26/16 02/27/17 Calcium Acetate [Phos-LO] 1,334 mg PO TIDWM 05/26/16 02/27/17 Duloxetine HCl [Cymbalta] 30 mg PO DAILY 05/26/16 02/27/17 Ergocalciferol (VITAMIN D2) 50,000 unit PO WE 05/26/16 02/27/17 [Vitamin D2] Ezetimibe [Zetia] 10 mg PO DAILY 05/26/16 02/27/17 Febuxostat [Uloric] 80 mg PO DAILY 05/26/16 02/27/17 Furosemide [Lasix] 40 mg PO DAILY 05/26/16 02/27/17 Gabapentin [Neurontin] 300 mg PO DAILY 05/26/16 02/27/17 Hydralazine HCl 50 mg PO Q8H 05/26/16 02/27/17 Isosorbide MONOnitrate (24 HR) 120 mg PO DAILY 05/26/16 02/27/17 [Imdur] LORazepam [Ativan] 0.5 - 1 mg PO BID PRN 05/26/16 02/27/17 Metoprolol XL (24 HR) Succ [Toprol 50 mg PO DAILY 05/26/16 02/27/17 Xl] Renal Vitamin [Renal Caps Softgel] 1 mg PO DAILY 05/26/16 02/27/17 Allopurinol [Zyloprim 300 MG] 300 mg PO DAILY 05/27/16 02/27/17 Insulin LISPRO [HumaLOG] 0 units SQ DAILY PRN MDD 110 units 05/27/16 02/27/17 daily Meloxicam 15 mg PO DAILY 05/27/16 02/27/17 Tramadol HCl [Ultram] 50 mg PO Q6HR PRN 08/11/16 02/27/17 Cinacalcet [Sensipar] 30 mg PO DAILY 01/06/17 02/27/17 Oxycodone HCl 10 mg PO TID PRN 01/06/17 02/27/17 Insulin Glargine [Lantus] 10 unit SQ DAILY 02/11/17 02/27/17 Clopidogrel [Plavix] 75 mg PO DAILY 02/27/17 02/27/17 Allergies Allergy/AdvReac Type Severity Reaction Status Date / Time IVP DYE Allergy See Uncoded 02/27/17 11:53 Comments ivp dye Allergy See Uncoded 02/27/17 11:53 Comments Review of Systems: Constitutional: No fever Vision: No blurred vision ENT: No rhinorrhea Respiratory: No cough Allergic: No allergies : No blood in urine GI: + blood in stool Hematologic: No bruising Dermatologic: No skin rash Musculoskeletal: No pain in the extremities Neuro: No numbness of the extremities Past Medical History - Past Medical History Medical history: Reports: diabetes, renal disease, hyperlipidemia, hypertension , thyroid disease, coronary artery disease, dialysis Surgical history: Reports: orthopedic, other, other, hysterectomy, vascular surgery Psychiatric history: Reports: anxiety, depression - Social History Smoking Status: Never smoker Smokeless Tobacco Status: No Alcohol use: Reports: none Drug use: Reports: none Physical Exam CONSTITUTIONAL: Alert and oriented X3, well-nourished, well appearing, in no apparent distress HEAD: Normocephalic; atraumatic. EYES: PERRL, no scleral icterus. NOSE: The nose is normal in appearance without rhinorrhea RESP: Normal chest excursion with respiration; breath sounds clear and equal bilaterally; no wheezes, rhonchi, or rales CARD: Regular rhythm, without murmurs, rub or gallop ABD: Non-distended; mild to moderate generalized abdominal pain but the entire abdomen is soft,without rigidity, rebound or guarding. Normal appearance SKIN: Normal for age and race; warm and dry; no apparent lesions Rectal exam is performed by the medical student which does reveal bright red blood but does not show any evidence of lesions or fissures. No masses palpated - General Limitations: no limitations General appearance: alert Course Vital Signs Temperature 97.5 F L 02/27/17 11:53 Pulse Rate 70 02/27/17 11:53 Respiratory Rate 20 02/27/17 11:53 Blood Pressure 173/81 02/27/17 11:53 O2 Sat by Pulse Oximetry 94 02/27/17 11:53 Temperature 97.5 F L 02/27/17 11:53 Pulse Rate 70 02/27/17 11:53 Respiratory Rate 20 02/27/17 11:53 Blood Pressure 173/81 02/27/17 11:53 O2 Sat by Pulse Oximetry 94 02/27/17 11:53 Oxygen Delivery Oxygen Delivery Room Air GI Bleed - [facility] Narrative Medical decision making narrative: Labs have been reviewed including a normal hemoglobin level, CT scan is ordered and is pending. Because the patient's anticoagulation status and the multiple episodes of bleeding the patient will be admitted for serial CBCs. 1242 I did speak with the hospitalist who accepted the patient for admission. Primary indication is the patient is anticoagulated and is actively bleeding although at this time her hemoglobin is stable and her low pressure is stable also. The patient asks for something to eat do not think that she will be undergoing colonoscopy today so for that reason ve8. she will be watched closely in the emergency department and after admission. Patient is comfortable with the approach. I reviewed the labs and her CT result. 1422 - Medical Records Medical records reviewed: Yes I reviewed the patient's medical records. - Lab Data Lab results reviewed: Yes I reviewed the patient's lab results. Result diagrams: 02/27/17 12:17 02/27/17 12:17 Lab Results 02/27/17 02/27/17 02/27/17 Range/Units 12:17 12:17 12:17 WBC 11.8 H (4.3-11.1) K/mcL RBC 3.62 L (3.82-4.97) M/mcL Hgb 11.8 (11.5-15.4) g/dL Hct 36.3 (35.3-44.9) % MCV 100.3 H (83.0-100.0) fL MCH 32.6 (28.0-33.3) pg MCHC 32.5 (31.6-35.5) g/dL RDW 14.6 H (11.5-14.5) % Plt Count 317 (140-400) K/mcL MPV 10.5 (9.4-12.4) fL Sodium 134 L (136-145) mEq/L Potassium 5.6 H (3.5-4.5) mEq/L Chloride 95 L (98-109) mEq/L Carbon Dioxide 21 (19-29) mEq/L BUN 36 H (7-20) mg/dL Creatinine 6.16 H (0.57-1.11) mg/dL Est GFR ( Amer) 8 L (> 60) Est GFR (Non-Af Amer) 7 L (> 60) BUN/Creatinine Ratio 6 (6-26) Glucose 244 H (70-99) mg/dL POC Glucose (58-89) Calculated Osmolality 294 (280-300) Calcium 9.0 (8.6-10.8) mg/dL Stool Occult Blood (Negative) Blood Type A POSITIVE Antibody Screen NEGATIVE 02/27/17 02/27/17 Range/Units 12:40 13:48 WBC (4.3-11.1) K/mcL RBC (3.82-4.97) M/mcL Hgb (11.5-15.4) g/dL Hct (35.3-44.9) % MCV (83.0-100.0) fL MCH (28.0-33.3) pg MCHC (31.6-35.5) g/dL RDW (11.5-14.5) % Plt Count (140-400) K/mcL MPV (9.4-12.4) fL Sodium (136-145) mEq/L Potassium (3.5-4.5) mEq/L Chloride (98-109) mEq/L Carbon Dioxide (19-29) mEq/L BUN (7-20) mg/dL Creatinine (0.57-1.11) mg/dL Est GFR ( Amer) (> 60) Est GFR (Non-Af Amer) (> 60) BUN/Creatinine Ratio (6-26) Glucose (70-99) mg/dL POC Glucose 222 H (58-89) Calculated Osmolality (280-300) Calcium (8.6-10.8) mg/dL Stool Occult Blood Positive A (Negative) Blood Type Antibody Screen Critical Care Time Critical Care Time: No
[2017-02-27 12:56] LABS: Potassium 5.6 mEq/L (3.5-4.5)
[2017-02-27] MEDS ORDERED: *HR* Morphine 2 MG/ML SYRINGE IVP PRN (14:42)
[2017-02-27] MEDS ORDERED: 0.9 % Sodium Chloride 1,000 ML IVC SCH (14:45)
--- NOTE | 2017-02-27 14:47 | Event Note ---
Date of Encounter: 02/27/17 Time of Encounter: 14:44 1. Acute blood loss anemia likely secondary to lower GI bleed exacerbated by aspirin and Plavix The patient needs dehydrated which will explain her right blood cell count is not dropping as she has bled for 3 days We will hold aspirin and Plavix as she to both earlier today Have clear liquids only, IV fluids, GI consult, cardiology will be informed as the patient had recently stents placed 2. End-stage renal disease on hemodialyses, consult nephrology 3. CAD status post stent placement May hold beta dick for now, hold aspirin and Plavix 4. Hypertension, stable 5. Diabetes type 2 insulin-dependent, may continue insulin pump for now Protonix IV for GI prophylaxis and sequential compression devices for DVT prophylaxis. The patient will be admitted as inpatient, expected to stay more than 2 midnights. Full code. Time spent on this admission 40 minutes. H&P will be completed by MIGUEL Trujillo
[2017-02-27] MEDS ORDERED: Naloxone 0.4 MG/ML INJ IVP PRN (15:28)
[2017-02-27] MEDS ORDERED: Acetaminophen 325 MG TABLET PO PRN (15:28)
[2017-02-27] MEDS ORDERED: Ondansetron 4 MG/2 ML VIAL IVP PRN (15:28)
--- NOTE | 2017-02-27 16:11 | Internal Med History&Physical ---
<Troy Trujillo - Last Filed: 02/27/17 18:13> Date of Encounter: 02/27/17 Time of Encounter: 15:00 Assessment and Plan (1) GI bleed Status: Acute Acute rectal bleeding x3 days. Pt. reports dark and bright blood w/diarrhea. Pt. denies hx of similar symptoms and reports last colonoscopy was 4 years ago. Hgb 11.8 and Hct 36.3 on admission. Hx of chronically low Hgb/Hct. Timed H/H. Pt. typed and screened previously (A+, negative antibody screen). Pt is in ESRD w/dialysis MWF. Order RBCs if warranted. Clear liquid diet today. NPO at midnight for possible GI intervention. Pt. reports heart catheterization on 04/20 with placement of 3 stents and was placed on aspirin and Plavix therapy. Cardiology consult ordered and discussed with Dr. Tomas w/ recommendation to continue aspirin and Plavix therapy d/t current Hgb/Hct WNL. Hold BP medications for now to avoid hypotension d/t current GI bleeding. Nephrology consult ordered and discussed with Dr. Jonas for inpatient dialysis. GI consult ordered w/Charu. Pt high risk d/t current sx and co-morbids/risk factors. Inpatient status. Qualifiers: GI bleed type/associated pathology: anorectal hemorrhage Qualified Code(s) : K62.5 - Hemorrhage of anus and rectum (2) Abdominal cramping, generalized Status: Acute Acute generalized abdominal cramping x3 days w/diarrhea. Pt. reports this is new. Stair-step pain medications for pain management. IVP Zofran Q6 PRN. IVP Protonix 40 mg BID. Clear liquid diet today. NPO at midnight d/t possible GI intervention. (3) Pneumonia Status: Suspected Hx of pneumonia 1 month ago. Pt reports being placed on PO abx. Denies current symptomology and is asymptomatic/afebrile. CT of the abdomen/pelvis today shows persistent small bilateral pleural effusions and bilateral airspace disease which could represent atelectasis or pneumonia, which represents possible but not definitive pneumonia. GI panel ordered to r/o C. difficile or other organisms based on previous abx use. Will monitor pt. for signs of increasing infection symptoms and address abx based on GI panel results. Qualifiers: Pneumonia type: due to unspecified organism Laterality: bilateral Lung location: lower lobe of lung Qualified Code(s): J18.9 - Pneumonia, unspecified organism (4) Hyponatremia Status: Acute Acute hyponatremia with sodium of 134 on admission. Chloride also low at 95. Pt. to receive IV 0.9 NS @ 75 mL/HR. Will look at f/u labs for to assess for corrected sodium and chloride levels. (5) Hyperkalemia Status: Acute Acute hyperkalemia w/potassium of 5.6 on admission. Pt. reports hx of chronic hyperkalemia. IV 0.9 NS @ 75 mL/HR ordered for dehydration/fluid resuscitation. Will monitor potassium levels in f/u labs after IV fluid administration. (6) Diarrhea Status: Acute Reports acute diarrhea for past several days. Pt. states she was treated for pneumonia 1 month ago and placed on abx. Denies hx of diarrhea. GI panel ordered stat to evaluate for C. difficile and other bacteremia in stool. Will administer appropriate tx based on panel results. Monitor I&O. IVP Protonix 40 mg BID. Qualifiers: Diarrhea type: unspecified type Qualified Code(s): R19.7 - Diarrhea, unspecified (7) HLD (hyperlipidemia) Status: Chronic Hx of chronic HLD. Lipid panel ordered in a.m. labs. Continue Lipitor. Qualifiers: Hyperlipidemia type: pure hypercholesterolemia Qualified Code(s): E78.00 - Pure hypercholesterolemia, unspecified; E78.0 - Pure hypercholesterolemia (8) HTN (hypertension) Status: Chronic Hx of HTN. Monitor patient and VS. Hold BP medications for now to avoid hypotension d/t current GI bleeding. Qualifiers: Hypertension type: essential hypertension Qualified Code(s): I10 - Essential (primary) hypertension (9) CAD (coronary artery disease) Status: Chronic Hx of chronic CAD. Stable. Pt. reports heart catheterization on 02/13/17 w/ placement of stents x3. Will continue Lipitor. Cardiology consult ordered and discussed with Dr. Tomas. Continue aspirin and Plavix per cardiology recommendation. Will hold all BP medications for now to avoid hypotension w/ concurrent GI bleeding. Continuous cardiac telemetry. Qualifiers: Coronary Disease-Associated Artery/Lesion type: [place] artery [place] vs. transplanted heart: [place] heart Associated angina: angina presence unspecified Qualified Code(s): I25.10 - Atherosclerotic heart disease of [place] coronary artery without angina pectoris (10) CHF (congestive heart failure) Status: Chronic Hx of chronic CHF and takes PO lasix. Stable. Patient currently reports no SOB and is not fluid overloaded. Patient placed on continuous telemetry. Will monitor fluid status closely. Qualifiers: Congestive heart failure type: unspecified congestive heart failure type Congestive heart failure chronicity: chronic Qualified Code(s): I50.9 - Heart failure, unspecified (11) ESRD (end stage renal disease) on dialysis Status: Chronic Hx of chronic ESRD requiring dialysis MWF. Patient states she is followed by Dr. Louise. Patient's meloxicam and other nephrotoxic agents. Nephrology consult ordered and discussed with Dr. Jonas for inpatient dialysis. Will use IV fluids judiciously. Monitor I&O and daily weight. (12) Hypothyroidism Status: Chronic Hx of chronic hypothyroidism. Continue patient's Synthroid. Qualifiers: Hypothyroidism type: unspecified Qualified Code(s): E03.9 - Hypothyroidism , unspecified (13) Diabetes Status: Chronic Hx of chronic diabetes with insulin pump control. Pt. reports DM not well- controlled in the past. Will continue pts. insulin pump and add hypoglycemic protocol. BG check ACHS. A1c ordered in a.m. labs. Qualifiers: Diabetes mellitus type: type 2 Diabetes mellitus complication status: with circulatory complication Diabetes mellitus complication detail: with other circulatory complications Diabetes mellitus care home insulin use: with career based intervention coordinator use Qualified Code(s): E11.59 - Type 2 diabetes mellitus with other circulatory complications; Z79.4 - habitat management coordinator (current) use of insulin (14) Gout Status: Chronic Hx of chronic gout. We will continue patient's allopurinol and febuxostat. 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 Hgb 11.8 and Hct 36.3 today (WNL ). Renal cap for B vitamins continued. Pt. previously typed and screened (A+ with negative antibody). Will monitor H/H. Order RBCs if necessary for transfusion. (16) DVT prophylaxis Status: Acute Bilateral SCDs on LEs for DVT prophylaxis. Pharmacologic DVT prophylaxis contraindicated d/t current rectal bleeding. Internal Medicine - H&P: HPI Chief complaint: Rectal bleeding Admitted From: Emergency Dept Plans for Post Hospital Care: Home History of present illness: Ms. Moffett is a 71 year old female with medical hx of heart catheterization on with placement of 3 stents, diabetes controlled with insulin pump, chronic renal disease requiring dialysis MWF, HLD, HTN, thyroid disease, and CAD presents from the ED with chief complaint of rectal bleeding with abdominal cramping for the past three days. States this has never happened before. Reports diarrhea with blood is dark and bright. Pt. states she was on abx approximately 1 month ago for pneumonia. Denies ever smoking, EtOH use, or illicit drug use. States she is allergic to IV dye. Patient reports rectal bleeding, abdominal cramping, diarrhea, and chills but denies fever, nausea, vomiting, headache, changes in vision, cough, allergies, numbness, tingling, chest pain, shortness of breath, dizziness, lightheadedness, pre-syncope, or syncope. Past Med Surg Social Fam HX - Past Medical History Source: patient, obtained from family Medical history: diabetes, renal disease, hyperlipidemia, hypertension, thyroid disease, coronary artery disease, dialysis Psychiatric history: anxiety, depression - Past Surgical History Surgical History: hysterectomy (Partial), orthopedic, other (Back surgery), other, vascular surgery - Social History Smoking Status: Never smoker Smokeless Tobacco Status: No Alcohol use: none Drug use: none Current living situation: Home Activity Level: Independent ambulation Recent Out of Country Travel Within the Last 8 Weeks: No Exposure or Possible Exposure to Illness During Travel: No - Family History Mother Race: Living Status: Age at : 77 Cause of : CAD Hx Family Cardiac Disorders: Yes (CAD) Father Race: Living Status: Age at : 50 Cause of : Colon cancer Hx Family Cancer: Yes (Colon) Hx Family Endocrine Disorder: Yes (DM) Brother Race: Living Status: Age at : 73 Cause of : Colon cancer Hx Family Cancer: Yes (Colon) Hx Family Endocrine Disorder: Yes (DM) Sister Race: Living Status: Age at : 36 Cause of : Cervical cancer Hx Family Cancer: Yes (Cervical) Hx Family Endocrine Disorder: Yes (DM) Internal Medicine - H&P: Meds Levothyroxine Sodium [Synthroid] 200 mcg PO DAILY 02/08/16 [History] amLODIPine [Norvasc] 10 mg PO DAILY 02/14/16 [History] Atorvastatin [Lipitor] 40 mg PO DAILY 05/26/16 [History] Calcium Acetate [Phos-LO] 1,334 mg PO TIDWM 05/26/16 [History] Duloxetine HCl [Cymbalta] 30 mg PO DAILY 05/26/16 [History] Ergocalciferol (VITAMIN D2) [Vitamin D2] 50,000 unit PO WE 05/26/16 [History] Ezetimibe [Zetia] 10 mg PO DAILY 05/26/16 [History] Febuxostat [Uloric] 80 mg PO DAILY 05/26/16 [History] Gabapentin [Neurontin] 300 mg PO DAILY 05/26/16 [History] Hydralazine HCl 50 mg PO Q8H 05/26/16 [History] LORazepam [Ativan] 0.5 - 1 mg PO BID PRN 05/26/16 [History] Metoprolol XL (24 HR) Succ [Toprol Xl] 50 mg PO DAILY 05/26/16 [History] Renal Vitamin [Renal Caps Softgel] 1 mg PO DAILY 05/26/16 [History] Allopurinol [Zyloprim 300 MG] 300 mg PO DAILY 05/27/16 [History] Cinacalcet [Sensipar] 30 mg PO DAILY 01/06/17 [History] Oxycodone HCl 10 mg PO TID PRN 01/06/17 [History] Insulin Glargine [Lantus] 10 unit SQ DAILY 02/11/17 [History] Clopidogrel [Plavix] 75 mg PO DAILY 02/27/17 [History] HYDROcodone/Acet 5/325 mg [[place] 5-325 mg] 1 tab PO Q4HR PRN tablet 03/02/17 [ Rx] Isosorbide MONOnitrate (24 HR) [Imdur] 60 mg PO DAILY tab.er.24h 03/02/17 [Rx] MetroNIDAZOLE 500 MG/100 ML [Flagyl Premix 500 MG/100 ML] 500 mg IVPB Q8H #1 bag 03/02/17 [Rx] Naloxone [Narcan] 0.4 mg IVP Q2MIN PRN inj 03/02/17 [Rx] Ondansetron [Zofran] 4 mg IVP Q6HR PRN vial 03/02/17 [Rx] Pantoprazole [Protonix] 40 mg IVP BID vial 03/02/17 [Rx] 3 Allergy/AdvReac Type Severity Reaction Status Date / Time IVP DYE Allergy See Uncoded 02/27/17 11:53 Comments ivp dye Allergy See Uncoded 02/27/17 11:53 Comments All Systems PM: A 10-system review of systems was performed and is negative for pertinent findings except as documented above in the HPI. - Constitutional Constitutional: as per HPI, chills, no fever(s), no night sweats - EENT Eyes: no change in vision, no discharge, no pain, no photophobia Ears: no ear discharge, no ear pain, no tinnitus Nose, mouth and throat: no dysphagia, no nasal discharge, no neck pain, no sore throat - Breasts Breasts: as per HPI - Cardiovascular Cardiovascular ROS IM: no chest pain, no diaphoresis, no dyspnea, no lightheadedness, no palpitations, no syncope - Respiratory Respiratory: no cough, no dyspnea, no wheezing, no excessive phlegm production - Gastrointestinal Gastrointestinal: as per HPI, abdominal pain, cramping, diarrhea, hematochezia - Genitourinary Genitourinary: no change in urinary stream, no dysuria, no flank pain, no hematuria Menstruation: as per HPI, post hysterectomy - Musculoskeletal Musculoskeletal ROS IM: no numbness, no tingling - Integumentary Integumentary IM: no rash, no unusual bruising - Neurological Neurological ROS: no confusion, no convulsions, no focal weakness, no numbness, no tingling, no tremor(s) - Psychiatric Psychiatric: as per HPI - Endocrine Endocrine IM: as per HPI - Hematologic/Lymphatic Hematologic/Lymphatic: no easy bruising - Allergic/Immunologic Allergic/Immunologic: as per HPI - Constitutional Vitals: Temp Pulse Resp BP Pulse Ox 97.9 F 68 17 180/79 89 02/27/17 15:54 02/27/17 15:54 02/27/17 15:54 02/27/17 15:54 02/27/17 15:54 General appearance: Present: cooperative, mild distress, A&O X 3, pleasant, answers questions appropriately - Head Head exam: Present: atraumatic, normocephalic - Eye Eye exam: Present: PERRL, conjuntiva pink, sclera anicteric Pupils: Present: PERRL - ENT ENT exam: Present: normal exam, normal external ear exam - Neck Neck exam general surgery: Present: normal inspection, supple, trachea midline. Absent: lymphadenopathy - Respiratory Respiratory exam: Present: CTAB. Absent: accessory muscle use, rales, rhonchi, wheezes - Cardiovascular Cardiovascular exam: Present: RRR, +S1, +S2. Absent: diastolic murmur, gallop, rubs, systolic murmur - GI/Abdominal GI/Abdominal exam: Present: diminished bowel sounds, guarding, soft, tenderness , no peritoneal signs - Rectal Rectal exam: Present: deferred - Additional comments: exam deferred. - Extremities Exam Extremities exam: Present: warm, radial pulses palpable and symmetrical. Absent : calf tenderness, cyanotic, pedal edema - Back Exam Back exam: Present: normal inspection - Neurological Exam Neurological exam: Present: CN II-XII intact, oriented X3, no focal deficits. Absent: pronater drift, facial droop, speech deficit - Psychiatric Psychiatric exam: Present: normal affect, normal mood - Skin Skin exam: Present: dry, intact Internal Med - H&P Results - Labs CBC & Chem 7: 02/27/17 12:17 02/27/17 12:17 - EKG Data EKG comments: 02/27/17 17:20 EKG dated 02/11/17 22:58:20 shows sinus rhythm with PACS, left ventricular hypertrophy, and ST-T change. EKG dated 02/11/17 23:51:30 shows long RP tachycardia, likely sinus tachycardia , baseline artifact complicates accurate interpretation, left ventricular hypertrophy, and ST-T change. <Alex Tinoco H - Last Filed: 03/05/17 03:43> Date of Encounter: 03/05/17 Internal Medicine - H&P: HPI History of present illness: Ms. Moffett is a 71 year old female All Systems PM: A 10-system review of systems was performed and is negative for pertinent findings except as documented above in the HPI. - Constitutional Vitals: Temp Pulse Resp BP Pulse Ox 98.3 F 70 18 121/71 100 03/02/17 12:39 03/02/17 16:21 03/02/17 16:21 03/02/17 16:21 03/02/17 16:21 Internal Med - H&P Results - Labs CBC & Chem 7: 03/02/17 13:04 03/02/17 03:18 - Impressions ITS Impressions GI Bleed Scan Nuclear Medicine 03/01/17 09:28 IMPRESSION: No evidence of active GI bleeding during acquisition. Uptake within the stomach which remains stable throughout the exam most consistent with free pertechnetate. RECOMMENDATIONS: If the patient shows hemodynamic signs of an active bleed in the next 20 hours, additional images can be acquired. D/ / 03/01/2017 13:49:55 Lopez Flores MD / arronyer Interpreting Provider: Lopez Flores MD - Attending Attestation 1. Acute blood loss anemia likely secondary to lower GI bleed exacerbated by aspirin and Plavix The patient needs dehydrated which will explain her right blood cell count is not dropping as she has bled for 3 days We will hold aspirin and Plavix as she took both earlier today Have clear liquids only, IV fluids, GI consult, cardiology will be informed as the patient had recently stents placed, may resume antiplatelet meds if bleeding is controlled 2. End-stage renal disease on hemodialyses, consult nephrology 3. CAD status post stent placement May hold beta dick for now, hold aspirin and Plavix 4. Hypertension, stable 5. Diabetes type 2 insulin-dependent, may continue insulin pump for now Protonix IV for GI prophylaxis and sequential compression devices for DVT prophylaxis. The patient will be admitted as inpatient, expected to stay more than 2 midnights. Full code. Time spent on this admission 40 minutes. For this encounter, I have reviewed the [employer] or PA documentation, treatment plan, and medical decision making; and I have had face to face time with this patient.
--- NOTE | 2017-02-27 16:27 | Cardiology Consult Note ---
Date of Encounter: 02/27/17 Time of Encounter: 16:25 (CAD) Assessment and Plan Discussion w patient/family: The assessment and plan as outlined above was discussed with the patient and/or family members who expressed understanding and agreement. All questions were answered. Thank you for involving us in the care of your patient. Please call with any questions. 71-year-old female as described above status post PCI less than a month ago presents with a rectal bleed and stable hemoglobin. Asymptomatic from a cardiac status. Holding aspirin and Plavix would result in high risk for stent thrombosis which carries a high risk for mortality and morbidity. Recommend continuing aspirin and Plavix unless life-threatening bleed occurs. History of Present Illness Consult date: 02/27/17 (Rectal bleed and recent PCI) Requesting physician: Troy Trujillo Consult reason: AC with recent stents and rectal blees Chief complaint: Bright red blood per rectum History of present illness: Ms. Moffett is a 71 year old female status post PCI to the proximal LAD RCA and circumflex February 13, 2017. She presents today after a fall in the bathroom with bright red blood per rectum. She states bleeding started Friday and has been ongoing with her most recent episode prior to arriving to the emergency department. The bleeding is painless and is bright red with some clots. She denies any chest pain shortness of breath, orthopnea, PND, presyncope or syncope. She currently is on dual and scleral therapy aspirin 81 mg and Plavix A5 daily. We have discussed risks benefits and alternatives in regards to stopping the dual antiplatelet therapy versus not in the setting of a stable hemoglobin of 11.8 and she agrees that she will continue taking her aspirin and Plavix. I do believe the benefit outweighs the risk at the current time with the above findings. Stent thrombosis involving the proximal LAD with Bella and increased risk of mortality. Aspirin and Plavix can be withheld in case of a life-threatening bleed only. Past Med Surg Social Fam HX - Past Medical History Medical history: diabetes, renal disease, hyperlipidemia, hypertension, thyroid disease, coronary artery disease, dialysis Psychiatric history: anxiety, depression - Past Surgical History Surgical History: orthopedic, other, other, hysterectomy, vascular surgery - Social History Smoking Status: Never smoker Smokeless Tobacco Status: No Alcohol use: none Drug use: none - Family History Mother Living Status: Hx Family Cardiac Disorders: Yes Father Living Status: Hx Family Cancer: Yes (colon) Brother Living Status: Hx Family Cancer: Yes (colon) Sister Living Status: Hx Family Cancer: Yes (uterine) Medications and Allergies Levothyroxine Sodium [Synthroid] 200 mcg PO DAILY 02/08/16 [History] Polyethylene Glycol 3350 [MiraLAX] 17 gm PO DAILY PRN 02/08/16 [History] amLODIPine [Norvasc] 10 mg PO DAILY 02/14/16 [History] Aspirin [Lo-Dose Aspirin EC] 81 mg PO DAILY 05/26/16 [History] Atorvastatin [Lipitor] 40 mg PO DAILY 05/26/16 [History] Calcium Acetate [Phos-LO] 1,334 mg PO TIDWM 05/26/16 [History] Duloxetine HCl [Cymbalta] 30 mg PO DAILY 05/26/16 [History] Ergocalciferol (VITAMIN D2) [Vitamin D2] 50,000 unit PO WE 05/26/16 [History] Ezetimibe [Zetia] 10 mg PO DAILY 05/26/16 [History] Febuxostat [Uloric] 80 mg PO DAILY 05/26/16 [History] Furosemide [Lasix] 40 mg PO DAILY 05/26/16 [History] Gabapentin [Neurontin] 300 mg PO DAILY 05/26/16 [History] Hydralazine HCl 50 mg PO Q8H 05/26/16 [History] Isosorbide MONOnitrate (24 HR) [Imdur] 120 mg PO DAILY 05/26/16 [History] LORazepam [Ativan] 0.5 - 1 mg PO BID PRN 05/26/16 [History] Metoprolol XL (24 HR) Succ [Toprol Xl] 50 mg PO DAILY 05/26/16 [History] Renal Vitamin [Renal Caps Softgel] 1 mg PO DAILY 05/26/16 [History] Allopurinol [Zyloprim 300 MG] 300 mg PO DAILY 05/27/16 [History] Insulin LISPRO [HumaLOG] 0 units SQ DAILY PRN MDD 110 units daily 05/27/16 [ History] Meloxicam 15 mg PO DAILY 05/27/16 [History] Tramadol HCl [Ultram] 50 mg PO Q6HR PRN 08/11/16 [History] Cinacalcet [Sensipar] 30 mg PO DAILY 01/06/17 [History] Oxycodone HCl 10 mg PO TID PRN 01/06/17 [History] Insulin Glargine [Lantus] 10 unit SQ DAILY 02/11/17 [History] Clopidogrel [Plavix] 75 mg PO DAILY 02/27/17 [History] 3 Allergy/AdvReac Type Severity Reaction Status Date / Time IVP DYE Allergy See Uncoded 02/27/17 11:53 Comments ivp dye Allergy See Uncoded 02/27/17 11:53 Comments All Systems Review: A 10-system review of systems was performed and is negative for pertinent findings except as documented above in the HPI. Physical Examination Vital Signs, Last 4 Hours Temp Pulse Resp BP Pulse Ox 02/27/17 15:54 97.9 F 68 17 180/79 89 02/27/17 15:05 97 F L 18 168/78 General: Conversant, No Apparent Distress Neck: No JVD, Normal carotid pulses Cardiac: Reg Rate and Rhythm, Normal S1 and S2, No Murmur Lungs: Normal Breath Sounds, No Wheeze, Rales, Rhonchi Other: rectal exam not performed Results 02/27/17 12:17 02/27/17 12:17 - Imaging and Cardiology Chest Xray: report reviewed Cardiac cath: report reviewed - EKG Interpretation EKG results cardiology: personally reviewed, sinus rhythm Consult Discharge Plan - Plan Referrals: Hugo Mercedes MD [Primary Care Provider] -
[2017-02-27] MEDS: *HR* Morphine 2 MG/ML SYRINGE IVP PRN ×2 (17:21→23:47)
[2017-02-27] MEDS: Calcium Acetate 667 MG CAPSULE PO SCH (17:21)
[2017-02-27] MEDS ORDERED: D5% in Water 1,000 ML IVC PRN (17:33)
[2017-02-27] MEDS ORDERED: Dextrose Gel 15 GM PO PRN ×2 (17:33)
[2017-02-27] MEDS: *HR* LORazepam 0.5 MG TABLET PO PRN (18:59)
[2017-02-27 20:29] LABS: Adenovirus F 40/41 PCR Not detected (Not detect); Astrovirus PCR Not detected (Not detect); C.difficile Toxin A/B by PCR See reflex test (Not detect); Campylobacter by PCR Not detected (Not detect); Cryptosporidium by PCR Not detected (Not detect); Cyclospora cayetanensis PCR Not detected (Not detect); E. coli O157 by PCR Not detected (Not detect); Entamoeba histolytica PCR Not detected (Not detect); Enteroaggregative E.coli(EAEC) Not detected (Not detect); Enteropathogenic E.coli(EPEC) ***DETECTED*** (Not detect); Enterotoxigenic E.coli (ETEC) Not detected (Not detect); Giardia lamblia PCR Not detected (Not detect); Norovirus GI/GII PCR Not detected (Not detect); Plesiomonas shigelloides PCR Not detected (Not detect); Rotavirus A PCR Not detected (Not detect); Salmonella PCR Not detected (Not detect); Shig/EnteroinvasiveE coli EIEC Not detected (Not detect); Shigalike tox-prod E coli STEC Not detected (Not detect); Vibrio PCR Not detected (Not detect); Vibrio cholerae PCR Not detected (Not detect); Yersinia enterocolitica PCR Not detected (Not detect)
[2017-02-27 20:30] LABS: Sapovirus PCR Not detected (Not detect)
[2017-02-27] MEDS: *HR* HYDROcodone/Acet 5/325 mg TABLET PO PRN (22:30)
[2017-02-27] MEDS: Pantoprazole 40 MG VIAL IVP SCH (22:30)
[2017-02-27] MEDS: MetroNIDAZOLE 500 MG/100 ML 500 MG/100 ML BAG IVPB SCH (23:20)
[2017-02-28] MEDS: *HR* LORazepam 0.5 MG TABLET PO PRN (01:47)
[2017-02-28] MEDS: *HR* Morphine 2 MG/ML SYRINGE IVP PRN ×2 (02:40→06:30)
[2017-02-28 05:27] LABS: Prothrombin Time 10.6 Seconds (9.4-12.1)
[2017-02-28 05:30] LABS: Activated Partial Thrombo Time 27.2 Seconds (26.0-36.0)
[2017-02-28 05:34] LABS: Albumin 2.5 g/dL (3.5-5.0); Albumin/Globulin Ratio 0.7 (1.1-2.2); Bilirubin,Total 0.4 mg/dL (0.2-1.2); Calcium 8.1 mg/dL (8.6-10.8); Chol/HDL Ratio 4.3 (0-4.9); Globulin 3.7 g/dL (2.4-3.5); Magnesium 1.9 mg/dL (1.6-2.6); Potassium 4.7 mEq/L (3.5-4.5); Total Protein 6.2 g/dL (6.0-8.3)
[2017-02-28 05:37] LABS: Basophils # 0.1 K/mcL (0.0-0.2); Basophils % 0.8 %; Eosinophils # 0.2 K/mcL (0.0-0.6); Eosinophils % 2.6 %; Hematocrit 29.2 % (35.3-44.9); Hemoglobin A1C 9.3 %; Immature Granulocytes % 0.3 % (0-4); Lymphocytes # 2.9 K/mcL (0.6-4.6); Lymphocytes % 31.7 %; Mean Corpuscular HGB Conc 32.5 g/dL (31.6-35.5); Mean Corpuscular Hemoglobin 32.6 pg (28.0-33.3); Mean Corpuscular Volume 100.3 fL (83.0-100.0); Mean Platelet Volume 10.5 fL (9.4-12.4); Monocytes # 1.5 K/mcL (0.0-1.3); Monocytes % 15.9 %; Neutrophils # 4.4 K/mcL (1.6-8.9); Platelet Count 308 K/mcL (140-400); Red Blood Count 2.91 M/mcL (3.82-4.97); Red Cell Distribution Width 14.2 % (11.5-14.5); Segmented Neutrophils % 48.7 %
[2017-02-28 05:38] LABS: Hemoglobin 9.5 g/dL (11.5-15.4)
[2017-02-28] MEDS ORDERED: 0.9 % Sodium Chloride 250 ML IVC PRN (06:00)
[2017-02-28] MEDS: Calcium Acetate 667 MG CAPSULE PO SCH ×3 (06:32→15:55)
[2017-02-28] MEDS: Pantoprazole 40 MG VIAL IVP SCH ×2 (06:33→21:24)
--- NOTE | 2017-02-28 07:20 | Nephrology Consult Note ---
Date of Encounter: 02/27/17 Time of Encounter: 17:30 Assessment and Plan (1) ESRD (end stage renal disease) Status: Chronic (Delayed entry: this note represents patient care from late yesterday 02/27/17) Plan for HD on Friday AM. Pt was seen/examined on . I updated the patient and her on renal care. HD orders placed in advance for Friday HD. Hx of insulin pump re: IDDM. She has had several prior hospitalizations and her asked about a prior, recent episode of severe hyperglycemia and then severe hypoglycemia after the insulin pump was stopped. Will ultimately defer DM to the primary team but if possible, her asked, if the insulin pump could remain in place. I updated the floor RN. (2) Abdominal cramping, generalized Status: Acute See above. Most likely d/t the GIB (3) GI bleed Status: Acute See above. Qualifiers: GI bleed type/associated pathology: anorectal hemorrhage Qualified Code(s) : K62.5 - Hemorrhage of anus and rectum (4) HTN (hypertension) Status: Chronic Will monitor. HD planned for Friday. Qualifiers: Hypertension type: essential hypertension Qualified Code(s): I10 - Essential (primary) hypertension (5) Hypoalbuminemia Status: Acute Acute on chronic. Goal serum Albumin is 4 in ESRD patients. Counseled her on adequate protein intake. History of Present Illness - Reason for Consult Consult date: 02/27/17 end stage renal disease Requesting physician: Alex Tinoco - Chief Complaint ESRD and GIB - History of Present Illness Ms. Moffett is a 71 year old female past medical history diabetes, ESRD on HD M/W/ F, osteomyelitis of vertebral lumbar, hypertension, obstructive sleep apnea on CPAP, COPD oxygen dependent and et al who presented with anemia and dark/bloody stools that started about 24hr before. Exacerbating factors: recent LHC with Plavix and ASA. No improving factors. She last dialyzed on Friday. She denied CP, N/V/D but was dx with a UTI. She was accompanied by her who was updated on her status and plan of care. (Delayed entry: this note represents patient care from late evening yesterday 02/27/17) Past Med Surg Social Fam HX - Past Medical History Medical history: diabetes, renal disease, hyperlipidemia, hypertension, thyroid disease, coronary artery disease, dialysis Psychiatric history: anxiety, depression - Past Surgical History Surgical History: hysterectomy (Partial), orthopedic, other (Back surgery), other, vascular surgery - Social History Smoking Status: Never smoker Smokeless Tobacco Status: No Alcohol use: none Drug use: none - Family History Mother Race: Living Status: Age at : 77 Cause of : CAD Hx Family Cardiac Disorders: Yes (CAD) Father Race: Living Status: Age at : 50 Cause of : Colon cancer Hx Family Cancer: Yes (Colon) Hx Family Endocrine Disorder: Yes (DM) Brother Race: Living Status: Age at : 73 Cause of : Colon cancer Hx Family Cancer: Yes (Colon) Hx Family Endocrine Disorder: Yes (DM) Sister Race: Living Status: Age at : 36 Cause of : Cervical cancer Hx Family Cancer: Yes (Cervical) Hx Family Endocrine Disorder: Yes (DM) Medications and Allergies Levothyroxine Sodium [Synthroid] 200 mcg PO DAILY 02/08/16 [History] amLODIPine [Norvasc] 10 mg PO DAILY 02/14/16 [History] Atorvastatin [Lipitor] 40 mg PO DAILY 05/26/16 [History] Calcium Acetate [Phos-LO] 1,334 mg PO TIDWM 05/26/16 [History] Duloxetine HCl [Cymbalta] 30 mg PO DAILY 05/26/16 [History] Ergocalciferol (VITAMIN D2) [Vitamin D2] 50,000 unit PO WE 05/26/16 [History] Ezetimibe [Zetia] 10 mg PO DAILY 05/26/16 [History] Febuxostat [Uloric] 80 mg PO DAILY 05/26/16 [History] Gabapentin [Neurontin] 300 mg PO DAILY 05/26/16 [History] Hydralazine HCl 50 mg PO Q8H 05/26/16 [History] LORazepam [Ativan] 0.5 - 1 mg PO BID PRN 05/26/16 [History] Metoprolol XL (24 HR) Succ [Toprol Xl] 50 mg PO DAILY 05/26/16 [History] Renal Vitamin [Renal Caps Softgel] 1 mg PO DAILY 05/26/16 [History] Allopurinol [Zyloprim 300 MG] 300 mg PO DAILY 05/27/16 [History] Cinacalcet [Sensipar] 30 mg PO DAILY 01/06/17 [History] Oxycodone HCl 10 mg PO TID PRN 01/06/17 [History] Insulin Glargine [Lantus] 10 unit SQ DAILY 02/11/17 [History] Clopidogrel [Plavix] 75 mg PO DAILY 02/27/17 [History] HYDROcodone/Acet 5/325 mg [[place] 5-325 mg] 1 tab PO Q4HR PRN tablet 03/02/17 [ Rx] Isosorbide MONOnitrate (24 HR) [Imdur] 60 mg PO DAILY tab.er.24h 03/02/17 [Rx] MetroNIDAZOLE 500 MG/100 ML [Flagyl Premix 500 MG/100 ML] 500 mg IVPB Q8H #1 bag 03/02/17 [Rx] Naloxone [Narcan] 0.4 mg IVP Q2MIN PRN inj 03/02/17 [Rx] Ondansetron [Zofran] 4 mg IVP Q6HR PRN vial 03/02/17 [Rx] Pantoprazole [Protonix] 40 mg IVP BID vial 03/02/17 [Rx] 3 Allergy/AdvReac Type Severity Reaction Status Date / Time IVP DYE Allergy See Uncoded 02/27/17 11:53 Comments ivp dye Allergy See Uncoded 02/27/17 11:53 Comments Review of Systems All Systems: reviewed and no additional remarkable complaints except as stated Exam - Vital Signs Vital signs: Initial Vital Signs Temp Pulse Resp BP Pulse Ox 97.5 F L 70 20 173/81 94 02/27/17 11:53 02/27/17 11:53 02/27/17 11:53 02/27/17 11:53 02/27/17 11:53 Vital Signs - Last 8 Hours Temp Pulse Resp BP Pulse Ox 02/28/17 04:13 97.6 F 61 16 145/68 96 02/28/17 04:11 12 96 Intake and Output 02/27/17 02/27/17 02/28/17 15:59 23:59 07:59 Other: Weight 82 kg Blood Glucose* 325 Patient Weight 02/28/17 23:59 Weight 82 kg - General Appearance General appearance: well-developed, well-nourished, obese, chronically ill, fatigue, frail EENT: ATNC, PERRL, mucous membranes moist Neck: supple Respiratory: clear Cardiology: no edema, regular rate, regular rhythm, normal S1, normal S2 - Dialysis Access Dialysis Vascular Access: Arteriovenous Fistula thrill: Yes bruit: Yes Gastrointestinal: normoactive bowel sounds, no tenderness, no organomegaly, no masses Integumentary: warm and dry Neurologic: no focal deficit, no asterixis, alert and oriented x3 Musculoskeletal: no erythema, no clubbing Psychiatric: mood/affect appropriate, cooperative Results - Lab Results 03/02/17 13:04 03/02/17 03:18 Most recent lab results Calcium 8.1 mg/dL (8.6-10.8) L 02/28/17 04:48 Magnesium 1.9 mg/dL (1.6-2.6) 02/28/17 04:48 I reviewed the labs, med lists, progress [facility] [place] computer records, vitals, imaging for this high-risk patient. Consult Discharge Plan - Plan Referrals: Hugo Mercedes MD [Primary Care Provider] - 03/10/17 2:00 pm (Please follow up as schedule...) Prescriptions: MetroNIDAZOLE 500 MG/100 ML [Flagyl Premix 500 MG/100 ML] 500 mg IVPB Q8H #1 bag
[2017-02-28] MEDS ORDERED: NON-FORMULARY MEDICATION 1 EACH EACH (Insulin Glargine [Lantus] 10 UNIT) SQ SCH (09:00)
[2017-02-28] MEDS: Insulin DETEMIR 100 UNIT/ML X5UNITS SQ SCH (09:23)
[2017-02-28] MEDS: *HR* HYDROcodone/Acet 5/325 mg TABLET PO PRN ×2 (09:23→15:55)
--- NOTE | 2017-02-28 09:46 | Internal Med Progress Note ---
Date of Encounter: 02/28/17 Time of Encounter: 09:39 - Assessment and plan (1) C. difficile colitis Current Visit: Yes Status: Acute (2) GI bleed Current Visit: Yes Status: Acute Qualifiers: GI bleed type/associated pathology: anorectal hemorrhage Qualified Code(s) : K62.5 - Hemorrhage of anus and rectum (3) CAD (coronary artery disease) Current Visit: Yes Status: Chronic Qualifiers: Coronary Disease-Associated Artery/Lesion type: [place] artery [place] vs. transplanted heart: [place] heart Associated angina: angina presence unspecified Qualified Code(s): I25.10 - Atherosclerotic heart disease of [place] coronary artery without angina pectoris (4) ESRD (end stage renal disease) on dialysis Current Visit: Yes Status: Chronic (5) Atrial fibrillation Current Visit: Yes Status: Chronic Qualifiers: Atrial fibrillation type: unspecified Qualified Code(s): I48.91 - Unspecified atrial fibrillation (6) Diabetes Current Visit: Yes Status: Chronic Qualifiers: Diabetes mellitus type: type 2 Diabetes mellitus complication status: with circulatory complication Diabetes mellitus complication detail: with other circulatory complications Diabetes mellitus half-way insulin use: with 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 Ursula Moffett had PCI last month and now she is presented with painless acute GI bleed with diarrhea. Apparently patient who is on hemodialysis was admitted last month for pneumonia and also had PCI being placed on aspirin and Plavix. Now she has returned with symptomatic GI bleed with a fall and bright red blood for 4 days. #1 acute GI bleed suspect diverticular. GI consulted anticipate colonoscopy. Hemoglobin 9.5 this morning from 11.8 on admission. Cardiology is requesting to continue aspirin and and Plavix due to recent PCI #2 acute C. difficile diverticulitis as stool C. difficile positive patient is on Flagyl. She was started on Rocephin yesterday by admitting team which will be DC'd as she had pneumonia only 4 weeks ago and chest x-ray showed only atelectasis with bilateral effusion which is perhaps fluid retention secondary to ESRD. After dialysis the chest x-ray can be repeated at that this time she is afebrile and without any white cell count rise. #3 CAD status post PCI including LAD cardiology is on case. Asymptomatic at this point. Request is to continue aspirin and Plavix and will continue monitoring globin deceived this is possible. #4 uncontrolled diabetes patient has history of DKA and she is on insulin pump. Discussed with pharmacy and she has been started on sliding scale and will watch her very closely. Hemoglobin A1c was 9.5 and cholesterol is also elevated signifying very poor control. #5 ESRD nephrology is on case will get dialysis follow electrolytes - Constitutional Vitals: Temp Pulse Resp BP Pulse Ox 97.6 F 61 16 126/74 96 02/28/17 06:56 02/28/17 04:13 02/28/17 06:56 02/28/17 09:30 02/28/17 04:13 General appearance: Present: cooperative, mild distress, A&O X 3, pleasant, answers questions appropriately - Head Head exam: Present: atraumatic, normocephalic - Eye Eye exam: Present: PERRL, conjuntiva pink, sclera anicteric Pupils: Present: PERRL - Neck Neck exam general surgery: Present: supple, trachea midline. Absent: lymphadenopathy - Respiratory Respiratory exam: Present: CTAB. Absent: accessory muscle use, rales, rhonchi, wheezes - Cardiovascular Cardiovascular exam: Present: RRR, +S1, +S2. Absent: diastolic murmur, gallop, rubs, systolic murmur - GI/Abdominal GI/Abdominal exam: Present: normal bowel sounds, soft, no peritoneal signs. Absent: distended, tenderness - Extremities Exam Extremities exam: Present: warm, radial pulses palpable and symmetrical. Absent : calf tenderness, cyanotic, pedal edema - Neurological Exam Neurological exam: Present: CN II-XII intact, oriented X3, no focal deficits. Absent: pronater drift, facial droop, speech deficit - Skin Skin exam: Present: dry, intact Internal Medicine: Result - Labs CBC & Chem 7: 02/28/17 12:26 02/28/17 04:48 Labs: Short CBC 02/28/17 Range/Units 04:48 WBC 9.1 (4.3-11.1) K/mcL Hgb 9.5 L D (11.5-15.4) g/dL Hct 29.2 L (35.3-44.9) % Plt Count 308 (140-400) K/mcL Neutrophils # 4.4 (1.6-8.9) K/mcL BMP 02/28/17 04:48 Sodium 133 L Potassium 4.7 H Chloride 96 L Carbon Dioxide 25 BUN 43 H Creatinine 6.55 H Glucose 166 H Calcium 8.1 L Liver Function 02/28/17 Range/Units 04:48 Total Bilirubin 0.4 (0.2-1.2) mg/dL AST 17 (5-34) Units/L ALT 14 (0-55) Units/L Alkaline Phosphatase 152 H (38-126) Units/L Albumin 2.5 L (3.5-5.0) g/dL - ABG Interpretation ABG results: PT/INR, D-dimer PT 10.6 Seconds (9.4-12.1) 02/28/17 04:48 - VTE Documentation of Mechanical Device: Intermittent pneumatic compression device Consult Discharge Plan - Plan Referrals: Hugo Mercedes MD [Primary Care Provider] - 03/10/17 2:00 pm (Please follow up as schedule...)
--- NOTE | 2017-02-28 10:00 | Gastroenterology Consult Note ---
<Osmany Coxn Tima - Last Filed: 02/28/17 10:18> Date of Encounter: 02/28/17 Time of Encounter: 09:30 - Assessment and plan (1) GI bleed Status: Acute Assessment and plan: Pt complains of dark and bright red rectal bleeding for the past 4 days. She had recent coronary stents and was started on ASA and plavix. Unable to stop plavix due to recent stenting, will proceed with EGD today for bleeding control. Pt was advised risks and benefits and is agreeable. She will likely need colonoscopy also. Spoke with Dr Tomas and pt is cleared for EGD/ colonoscopy as long as ASA and plavix were continued. Qualifiers: GI bleed type/associated pathology: anorectal hemorrhage Qualified Code(s) : K62.5 - Hemorrhage of anus and rectum (2) Abdominal cramping, generalized Status: Acute Assessment and plan: Continue PPI, EGD/colonoscopy (3) Anticoagulation management encounter Status: Acute Assessment and plan: Pt continued on plavix and ASA due to recent coronary stenting will defer to cardiology (4) CAD (coronary artery disease) Status: Chronic Qualifiers: Coronary Disease-Associated Artery/Lesion type: [place] artery [place] vs. transplanted heart: [place] heart Associated angina: angina presence unspecified Qualified Code(s): I25.10 - Atherosclerotic heart disease of [place] coronary artery without angina pectoris (5) ESRD (end stage renal disease) Status: Chronic Assessment and plan: Followed by nephrology, pt is on hemodyalasis today - Time Spent With Patient Total time spent is greater than 50% in coordination of care (as documented) at patient's floor/unit and/or counseling patient: GI History of Present Illness - Data of Consult Patient: new to practice Consult date: 02/28/17 Requesting Physician: Chevy Thao - Consult Narrative Reason for consult: GI bleed History of present illness: Ms. Moffett is a 71 year old female with a pmhx of heart catheterization on with placement of 3 stents, DM controlled with insulin pump, ESRD requiring dialysis MWF, HLD, HTN, and thyroid disease. She presents to the ED with rectal bleeding. She was started on Plavix and baby ASA after coronary stenting on 04/20. She states her noticed dark and bright red bleeding in her depends 4 days ago. She states bleeding is present with every bowel movement. She reports having yellow diarrhea 2 weeks ago which has resolved. She complains of abdominal pain, cramping and tenderness for the past 3 weeks. She complains of heartburn but denies hematemesis, nausea, vomiting or dysphagia. She denies fever, dyspnea or chest pain. She does complain of increased fatigue for the past 4-5 months. She has family history of colon cancer, 2 brothers and her father who was diagnosed at age 50. CT abd pelvis without contrast showed persistent small bilateral pleural effusions and bilateral airspace disease which could represent atelectasis or pneumonia. Unchanged compression deformity of L1 and erosive changes at L3-L4. Multiple bilateral healing rib fractures, unchanged. Hgb 9.5, K 4.7, Creat 6.55, Occult blood +. Colonoscopy: 2012 normal no pathology (pt states she has had polyps in the past) EGD: denies NSAIDS/ASA: asa Anticoagulants: plavix Past Med Surg Social Fam HX - Past Medical History Medical history: diabetes, renal disease, hyperlipidemia, hypertension, thyroid disease, coronary artery disease, dialysis Psychiatric history: anxiety, depression - Past Surgical History Surgical History: hysterectomy (Partial), orthopedic, other (Back surgery), other, vascular surgery - Social History Smoking Status: Never smoker Smokeless Tobacco Status: No Alcohol use: none Drug use: none - Family History Mother Race: Living Status: Age at : 77 Cause of : CAD Hx Family Cardiac Disorders: Yes (CAD) Father Race: Living Status: Age at : 50 Cause of : Colon cancer Hx Family Cancer: Yes (Colon) Hx Family Endocrine Disorder: Yes (DM) Brother Race: Living Status: Age at : 73 Cause of : Colon cancer Hx Family Cancer: Yes (Colon) Hx Family Endocrine Disorder: Yes (DM) Sister Race: Living Status: Age at : 36 Cause of : Cervical cancer Hx Family Cancer: Yes (Cervical) Hx Family Endocrine Disorder: Yes (DM) Review of Systems: GI: as per [place] GENERAL: denies fever, or chills EYES: denies yellow discoloration ENT: denies pain with swallowing or difficulty swallowing CARDIO: denies chest pain, palpitations RESP: No Shortness of breath with exertion : denies change in color of urine NEURO: increased weakness and fatigue HEME: Denies any bruising MS: denies joint pain, joint swelling or back pain. DERM: denies rash or itching PSYCH: Denies history of anxiety or depression - Constitutional Vitals: Temp Pulse Resp BP Pulse Ox 97.6 F 61 16 126/74 96 02/28/17 06:56 02/28/17 04:13 02/28/17 06:56 02/28/17 09:30 02/28/17 04:13 Exam: CONSTITUTIONAL:~alert, no acute distress.~HEAD:~normocephalic.~EYES:~no jaundice.~NECK:~no obvious swelling.~HEART:~regular rate and rhythm, no murmurs. ~LUNGS:~bilateral fair air entry.~ABDOMEN:~non distended, soft, diffuse tenderness worse to LUQ and epigastric area, no masses palpable, no organomegaly.~RECTAL EXAM:~Deferred.~EXTREMITIES:~no clubbing, cyanosis or edema , LUE AV fistula.~SKIN:~no stigmata of chronic liver disease.~NEUROLOGIC:~no obvious focal defect Results - Labs CBC & Chem 7: 02/28/17 04:48 02/28/17 04:48 Labs: Last Result Calcium 8.1 mg/dL (8.6-10.8) L 02/28/17 04:48 Triglycerides 180 mg/dL (< 150) H 02/28/17 04:48 Stool Occult Blood Positive (Negative) A 02/27/17 12:40 Entire Visit Hgb 9.5 g/dL (11.5-15.4) L D 02/28/17 04:48 Hct 29.2 % (35.3-44.9) L 02/28/17 04:48 PT 10.6 Seconds (9.4-12.1) 02/28/17 04:48 Total Bilirubin 0.4 mg/dL (0.2-1.2) 02/28/17 04:48 AST 17 Units/L (5-34) 02/28/17 04:48 ALT 14 Units/L (0-55) 02/28/17 04:48 - ABG ABG results: PT/INR, D-dimer PT 10.6 Seconds (9.4-12.1) 02/28/17 04:48 Consult Discharge Plan - Plan Referrals: Hugo Mercedes MD [Primary Care Provider] - 03/10/17 2:00 pm (Please follow up as schedule...) Prescriptions: MetroNIDAZOLE 500 MG/100 ML [Flagyl Premix 500 MG/100 ML] 500 mg IVPB Q8H #1 bag <Fabrizio Morton - Last Filed: 03/03/17 11:59> Date of Encounter: 02/28/17 - Time Spent With Patient Total time spent is greater than 50% in coordination of care (as documented) at patient's floor/unit and/or counseling patient: GI History of Present Illness - Data of Consult Requesting Physician: Chevy Thao - Consult Narrative History of present illness: Ms. Moffett is a 71 year old female - Constitutional Vitals: Temp Pulse Resp BP Pulse Ox 98.3 F 70 18 121/71 100 03/02/17 12:39 03/02/17 16:21 03/02/17 16:21 03/02/17 16:21 03/02/17 16:21 Results - Labs CBC & Chem 7: 03/02/17 13:04 03/02/17 03:18 Labs: Last Result Calcium 8.3 mg/dL (8.6-10.8) L 03/02/17 03:18 Triglycerides 180 mg/dL (< 150) H 02/28/17 04:48 Stool Occult Blood Positive (Negative) A 02/27/17 12:40 Entire Visit Hgb 8.1 g/dL (11.5-15.4) L 03/02/17 13:04 Hct 24.2 % (35.3-44.9) L 03/02/17 13:04 PT 10.6 Seconds (9.4-12.1) 02/28/17 04:48 Total Bilirubin 0.4 mg/dL (0.2-1.2) 03/02/17 03:18 AST 17 Units/L (5-34) 03/02/17 03:18 ALT 14 Units/L (0-55) 03/02/17 03:18 - ABG ABG results: PT/INR, D-dimer PT 10.6 Seconds (9.4-12.1) 02/28/17 04:48 - Attending Attestation I examined and interviewed Ms. Moffett myself and reviewed her labs and scans for this consultation. She is presently being dialyzed. Plan EGD today and colonoscopy tomorrow. On LT anticoagulation for 3 coronary stents placed about 3 -4 weeks ago.
--- NOTE | 2017-02-28 10:31 | Anesthesia Evaluation PreOp ---
Date of Encounter: 02/28/17 Time of Encounter: 10:31 - Past History Planned Operation: egd Cardiac History: CHF, HTN, Hyperlipidemia, Cardiac Stent (x3 02-13-17), Other ( CAD) Pulmonary History: Denies Any Significant HX ART HISTORY INSTRUCTOR History: Denies Any Significant HX Other Medical History: Renal (ESRD on HD, had HD this morning), Diabetes Type II , Thyroid (hypo) Anesthesia History: No Prior Anesthetic Complications, Past Anesthesia (NOELLE, back sx, Fistula) Alcohol Use: none Drug use: none Medications and Allergies Levothyroxine Sodium [Synthroid] 200 mcg PO DAILY 02/08/16 [History] Polyethylene Glycol 3350 [MiraLAX] 17 gm PO DAILY PRN 02/08/16 [History] amLODIPine [Norvasc] 10 mg PO DAILY 02/14/16 [History] Aspirin [Lo-Dose Aspirin EC] 81 mg PO DAILY 05/26/16 [History] Atorvastatin [Lipitor] 40 mg PO DAILY 05/26/16 [History] Calcium Acetate [Phos-LO] 1,334 mg PO TIDWM 05/26/16 [History] Duloxetine HCl [Cymbalta] 30 mg PO DAILY 05/26/16 [History] Ergocalciferol (VITAMIN D2) [Vitamin D2] 50,000 unit PO WE 05/26/16 [History] Ezetimibe [Zetia] 10 mg PO DAILY 05/26/16 [History] Febuxostat [Uloric] 80 mg PO DAILY 05/26/16 [History] Furosemide [Lasix] 40 mg PO DAILY 05/26/16 [History] Gabapentin [Neurontin] 300 mg PO DAILY 05/26/16 [History] Hydralazine HCl 50 mg PO Q8H 05/26/16 [History] Isosorbide MONOnitrate (24 HR) [Imdur] 120 mg PO DAILY 05/26/16 [History] LORazepam [Ativan] 0.5 - 1 mg PO BID PRN 05/26/16 [History] Metoprolol XL (24 HR) Succ [Toprol Xl] 50 mg PO DAILY 05/26/16 [History] Renal Vitamin [Renal Caps Softgel] 1 mg PO DAILY 05/26/16 [History] Allopurinol [Zyloprim 300 MG] 300 mg PO DAILY 05/27/16 [History] Insulin LISPRO [HumaLOG] 0 units SQ DAILY PRN MDD 110 units daily 05/27/16 [ History] Meloxicam 15 mg PO DAILY 05/27/16 [History] Tramadol HCl [Ultram] 50 mg PO Q6HR PRN 08/11/16 [History] Cinacalcet [Sensipar] 30 mg PO DAILY 01/06/17 [History] Oxycodone HCl 10 mg PO TID PRN 01/06/17 [History] Insulin Glargine [Lantus] 10 unit SQ DAILY 02/11/17 [History] Clopidogrel [Plavix] 75 mg PO DAILY 02/27/17 [History] 3 Allergy/AdvReac Type Severity Reaction Status Date / Time IVP DYE Allergy See Uncoded 02/27/17 11:53 Comments ivp dye Allergy See Uncoded 02/27/17 11:53 Comments - Meds/Allergy Pre-op Review Medications Reviewed: Yes Allergies Reviewed: Yes Beta Blockers on Current Med List: Yes If Beta Blockers taken, Date/Time (Last Dose taken): is being held by medicine Anesthesia Results - Labs 02/28/17 04:48 02/28/17 04:48 Anesthesia Exam Selected Entries 02/28/17 10:25 Temperature 99.3 F Respiratory Rate 18 Blood Pressure 138/68 NPO (# of Hours): >>8 - HEENT Pupil (Motor): EOMI Mallampati: II Teeth: Missing Oral Opening: Greater than 3 - ART HISTORY INSTRUCTOR LOC: Oriented ART HISTORY INSTRUCTOR Motor: Normal RUE, Normal LUE, Normal RLE, Normal LLE, Normal Face ART HISTORY INSTRUCTOR Sensory: Normal: RUE, LUE, RLE, LLE, Face - Cardiac Rhythm: Regular Murmur: None - Pulmonary Breath Sounds: bilateral Clear Respiratory Effort: Symmetrical Anesthesia Assess/Plan ASA Score: 4 Modified [place] Scale for Level of Consciousness: Cooperative, oriented, and tranquil Anesthetic Plan: MAC Monitoring Plan: Standard Monitors Recovery Plan: PACU (Disucssed MAC, agrees to proceed)
--- NOTE | 2017-02-28 11:04 | Anesthesia Evaluation Post Op ---
Date of Encounter: 02/28/17 Time of Encounter: 11:02 - Vital Signs Vital Signs: 146/72, HR 70, SpO2 92% on 2LPM, RR 18 - Lungs Lungs: Clear Ascult./Percussion - Airway Airway: Non-obstructed - Cardiovascular Regular Rate - Mental Status Mental Status: Alert & Oriented, Answers Appropriately - Pain Pain Scale: 0 Pain Scale used: Numeric (1 - 10) - Nausea Vomiting Nausea Vomiting: Not Present - Hydration Hydration: NPO, Has not voided - Discharge PostOp Status: Transfer Patient to floor
[2017-02-28] MEDS ORDERED: *HR* OxyCODONE Immed Rel 5 MG TABLET PO PRN (11:31)
--- NOTE | 2017-02-28 11:45 | Nephrology Progress Note ---
Date of Encounter: 02/28/17 Time of Encounter: 11:43 - Assessment and Plan (1) GI bleed Current Visit: Yes Status: Acute Patient with recurrent abdominal pain. She now has a GI bleed and on Plavix. Anticipate endoscopy today. Qualifiers: GI bleed type/associated pathology: anorectal hemorrhage Qualified Code(s) : K62.5 - Hemorrhage of anus and rectum (2) CAD (coronary artery disease) Current Visit: Yes Status: Chronic S/P PTCA with stent placement. On plavix and unable to discontinue secondary to stent placement. No chest pain. Per primary team. Qualifiers: Coronary Disease-Associated Artery/Lesion type: [place] artery [place] vs. transplanted heart: [place] heart Associated angina: angina presence unspecified Qualified Code(s): I25.10 - Atherosclerotic heart disease of [place] coronary artery without angina pectoris (3) Diabetes Current Visit: Yes Status: Chronic Continue insulin pump. Per primary team. 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 Check for HD need on Friday. Renal diet. Adjust medication for renal function. Subjective Principal diagnosis: ESRD Interval history: Ms. Moffett is a 71 yo woman with recent PTCA with stent placement who presents with abdominal pain and hematochezia. She was seen on dialysis and reports that her abdominal pain is better. She anticipates getting endoscopy later today. Objective - Vital Signs Vital signs: Vital Signs Temp Pulse Resp BP Pulse Ox 02/28/17 10:25 99.3 F 18 138/68 02/28/17 10:23 98.7 F 70 12 155/72 93 02/28/17 10:15 126/71 02/28/17 10:00 141/64 02/28/17 09:30 126/74 02/28/17 09:00 114/66 02/28/17 08:30 128/89 02/28/17 08:00 129/69 02/28/17 07:30 154/71 02/28/17 06:56 97.6 F 16 144/75 02/28/17 04:13 97.6 F 61 16 145/68 96 02/28/17 04:11 12 96 02/27/17 23:14 97.5 F L 61 16 141/69 97 02/27/17 23:02 14 94 02/27/17 18:54 98.4 F 70 18 173/81 94 Intake and Output 02/27/17 02/28/17 02/28/17 23:59 07:59 15:59 Intake Total 600 / 600 Output Total 0 / 0 3100 / 3100 Balance 600 / 600 -3100 / -3100 Intake: Oral 0 / 0 Intake, Rinseback and Flushes 600 / 600 Output: Urine 0 / 0 0 / 0 Total Dialysis (HD) Output 3100 / 3100 Other: Weight 82 kg Blood Glucose* 325 133 Hemodialysis Net Fluid Removed 441 2500 (mL) Patient Weight 02/28/17 23:59 Weight 82 kg - General Appearance General appearance: Present: well-developed, well-nourished EENT: Present: ATNC Neck: Present: supple Additional Comments: respirations are unlabored. Cardiology: Present: edema (trace), regular rate Integumentary: Present: warm and dry Neurologic: Present: alert and oriented x3 Psychiatric: Present: mood/affect appropriate - Lab 02/28/17 04:48 02/28/17 04:48 Most recent lab results Calcium 8.1 mg/dL (8.6-10.8) L 02/28/17 04:48 Magnesium 1.9 mg/dL (1.6-2.6) 02/28/17 04:48 - VTE Documentation of Mechanical Device: Intermittent pneumatic compression device Consult Discharge Plan - Plan Referrals: Hugo Mercedes MD [Primary Care Provider] - 03/10/17 2:00 pm (Please follow up as schedule...)
[2017-02-28] MEDS: Gabapentin 300 MG CAPSULE PO SCH (12:11)
[2017-02-28] MEDS: Renal Vitamin 1 MG CAPSULE PO SCH (12:11)
[2017-02-28] MEDS: Aspirin Enteric Coated 81 MG Tablet PO SCH (12:11)
[2017-02-28] MEDS: MetroNIDAZOLE 500 MG/100 ML 500 MG/100 ML BAG IVPB SCH ×3 (12:11→23:40)
[2017-02-28] MEDS: Insulin LISPRO 300 UNITS/3 ML VIAL SQ SCH ×3 (12:12→21:16)
[2017-02-28 12:47] LABS: Hematocrit 28.3 % (35.3-44.9); Hemoglobin 9.4 g/dL (11.5-15.4); Mean Corpuscular HGB Conc 33.2 g/dL (31.6-35.5); Mean Corpuscular Hemoglobin 33.2 pg (28.0-33.3); Mean Platelet Volume 10.3 fL (9.4-12.4); Platelet Count 285 K/mcL (140-400); Red Blood Count 2.83 M/mcL (3.82-4.97); Red Cell Distribution Width 14.1 % (11.5-14.5)
[2017-02-28] MEDS: *HR* Dextrose 50 % in Water (Syg) 50 ML SYRINGE IVP PRN ×2 (16:39→18:49)
[2017-02-28] MEDS ORDERED: SODIUM CHLORIDE/NAHCO3/KCL/PEG 4,000 ML SOLN.RECON PO ONE (17:00)
--- NOTE | 2017-02-28 18:05 | Electrocardiograph Report ---
[place] [id number] Test Date: 2017-02-27 Pat Name: Ursula Moffett Department: 112 Room: [facility] Gender: F Paper Roller: TLS : 1945 Requested By: Troy Trujillo Order Number: [id number] Reading MD: Adrian Scott DO Measurements Intervals [place] Rate: 67 P: OR: 0 QRS: 1 QRSD: 101 T: 75 QT: 429 QTc: 445 Interpretive Statements Sinus rhythm with a first degree AV block Left ventricular hypertrophy Nonspecific T wave change Electronically Signed On 02-28-2017 18:03:21 EDT by Adrian Scott DO
[2017-02-28] MEDS ORDERED: *HR* Propofol 200 MG/20 ML VIAL IVP ONE (18:09)
[2017-02-28] MEDS ORDERED: Lidocaine -MPF 2% 5 ML VIAL INFILT ONE (18:09)
[2017-03-01] MEDS: MetroNIDAZOLE 500 MG/100 ML 500 MG/100 ML BAG IVPB SCH ×3 (06:10→23:24)
[2017-03-01 06:35] LABS: Basophils # 0.1 K/mcL (0.0-0.2); Basophils % 0.6 %; Eosinophils # 0.1 K/mcL (0.0-0.6); Eosinophils % 1.7 %; Hematocrit 32.7 % (35.3-44.9); Hemoglobin 10.8 g/dL (11.5-15.4); Immature Granulocytes % 0.4 % (0-4); Lymphocytes # 1.6 K/mcL (0.6-4.6); Lymphocytes % 19.9 %; Mean Corpuscular Hemoglobin 32.7 pg (28.0-33.3); Mean Corpuscular Volume 99.1 fL (83.0-100.0); Mean Platelet Volume 10.2 fL (9.4-12.4); Monocytes % 11.8 %; Neutrophils # 5.4 K/mcL (1.6-8.9); Platelet Count 303 K/mcL (140-400); Red Cell Distribution Width 14.1 % (11.5-14.5); Segmented Neutrophils % 65.6 %
[2017-03-01 06:59] LABS: Albumin 2.7 g/dL (3.5-5.0); Albumin/Globulin Ratio 0.7 (1.1-2.2); Bilirubin,Total 0.5 mg/dL (0.2-1.2); Calcium 8.4 mg/dL (8.6-10.8); Globulin 3.9 g/dL (2.4-3.5); Magnesium 1.8 mg/dL (1.6-2.6); Phosphorous 4.6 mg/dL (2.3-4.7); Total Protein 6.6 g/dL (6.0-8.3)
--- NOTE | 2017-03-01 08:20 | Pre-Sedation Evaluation ---
Pre-sedation evaluation - Pre-sedation checklist Date of procedure: 02/28/17 Procedure: egd Recent Vitals: Last Vital Signs Temp 97.8 F 03/01/17 07:54 Pulse 76 03/01/17 07:54 Resp 18 03/01/17 07:54 BP 195/87 03/01/17 07:54 Pulse Ox 98 03/01/17 07:54 H&P (including ROS) documented in medical record: Yes Previous reaction to sedatives/anesthetics: No Dietary Status: NPO after Midnight Dentition: No loose teeth or bridges Possible difficult airway: No ASA Classification *see protocol: CLASS III-Severe systemic disease
--- NOTE | 2017-03-01 08:21 | History & Physical Report ---
Date of Encounter: 03/01/17 Time of Encounter: 08:21 24 Hour HP Update - Instructions Instructions: If the History and Physical is less than 30 days old and was completed prior to A.M. admission and or procedure and has NOT been updated on calendar day of procedure please complete this update prior to performing procedure. - Update Patient reports changes in Medical Condition: No Changes in examination, assessment, or condition: No Changes in Medication: No Preop tests/diagnostics Reviewed: Yes Surgery Remains Indicated: Yes Consent for Planned Operative Procedure(s) Verified: Yes
[2017-03-01 10:22] LABS: Hematocrit 29.8 % (35.3-44.9); Hemoglobin 9.9 g/dL (11.5-15.4)
--- NOTE | 2017-03-01 11:49 | Nephrology Progress Note ---
Date of Encounter: 03/01/17 Time of Encounter: 11:47 - Assessment and Plan (1) GI bleed Current Visit: Yes Status: Acute Patient with recurrent abdominal pain. She now has a GI bleed and on Plavix. Colonoscopy with blood in colon. Will be transferred to ICU. Management per primary team and surgery. Qualifiers: GI bleed type/associated pathology: anorectal hemorrhage Qualified Code(s) : K62.5 - Hemorrhage of anus and rectum (2) CAD (coronary artery disease) Current Visit: Yes Status: Chronic S/P PTCA with stent placement. On plavix and unable to discontinue for an extended period of time secondary to stent placement. No chest pain. Per primary team. Qualifiers: Coronary Disease-Associated Artery/Lesion type: [place] artery [place] vs. transplanted heart: [place] heart Associated angina: angina presence unspecified Qualified Code(s): I25.10 - Atherosclerotic heart disease of [place] coronary artery without angina pectoris (3) Diabetes Current Visit: Yes Status: Chronic Continue insulin pump. Per primary team. 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 Will perform dialysis today for hyperkalemia. Renal diet. Adjust medication for renal function. (5) Anemia in ESRD (end-stage renal disease) Current Visit: No Status: Chronic Transfuse as needed. Acute anemia secondary to GI bleed. Subjective Principal diagnosis: ESRD Interval history: Ms. Moffett is a 71 yo woman with recent PTCA with stent placement who presented with abdominal pain and hematochezia. She was seen when going for a bleeding scan after a colonoscopy revealed blood in her colon without a source of active bleeding. Objective - Vital Signs Vital signs: Vital Signs Temp Pulse Resp BP Pulse Ox 03/01/17 10:05 75 18 157/76 92 03/01/17 09:35 99.7 F H 71 18 151/70 94 03/01/17 09:20 99.7 F H 71 18 150/66 93 03/01/17 09:05 71 18 154/70 94 03/01/17 07:54 97.8 F 76 18 195/87 98 03/01/17 05:43 97.9 F 74 16 188/71 97 03/01/17 00:28 97.6 F 72 16 169/77 96 02/28/17 18:49 65 12 149/64 94 02/28/17 17:06 183/89 02/28/17 16:28 98.9 F 65 16 182/78 97 02/28/17 13:30 69 18 150/77 95 02/28/17 12:30 70 18 155/62 95 02/28/17 12:05 68 16 136/67 96 02/28/17 11:50 60 16 130/57 96 Intake and Output 02/28/17 03/01/17 03/01/17 23:59 07:59 15:59 Intake Total 1320 / 1320 1060 / 1060 Balance 1320 / 1320 1060 / 1060 Intake: IV Fluids 0 / 0 100 / 100 Flagyl Premix 500 MG/100 ML 500 0 / 0 100 / 100 mg In 100 ml @ 100 mls/hr IVPB Q8H [facility] Rx#:[id number] Oral 1320 / 1320 960 / 960 Other: Meal Bowel prep 240mL Bowel prep 720mL Percent of Meal Consumed 0% Stool Size Large Moderate Stool Consistency loose liquid liquid Stool Color Brown Dark Red Blood Dark Red Blood # Bowel Movements 1 1 # Bowel Movement Diapers 1 Weight 74.5 kg Blood Glucose* 101 138 - General Appearance General appearance: Present: well-developed, well-nourished EENT: Present: ATNC Cardiology: Present: regular rate Neurologic: Present: alert and oriented x3 Psychiatric: Present: mood/affect appropriate - Lab 03/01/17 17:00 03/01/17 05:39 Most recent lab results Calcium 8.4 mg/dL (8.6-10.8) L 03/01/17 05:39 Phosphorus 4.6 mg/dL (2.3-4.7) 03/01/17 05:39 Magnesium 1.8 mg/dL (1.6-2.6) 03/01/17 05:39 - VTE Documentation of Mechanical Device: Intermittent pneumatic compression device Consult Discharge Plan - Plan Referrals: Hugo Mercedes MD [Primary Care Provider] - 03/10/17 2:00 pm (Please follow up as schedule...)
[2017-03-01] MEDS: Insulin LISPRO 300 UNITS/3 ML VIAL SQ SCH ×4 (11:58→21:08)
[2017-03-01] MEDS: Aspirin Enteric Coated 81 MG Tablet PO SCH (12:59)
[2017-03-01] MEDS: Calcium Acetate 667 MG CAPSULE PO SCH ×3 (12:59→18:41)
[2017-03-01] MEDS: Insulin DETEMIR 100 UNIT/ML X5UNITS SQ SCH (12:59)
[2017-03-01] MEDS ORDERED: 0.9 % Sodium Chloride 250 ML IVC PRN (13:39)
[2017-03-01] MEDS ORDERED: 0.9 % Sodium Chloride 1,000 ML PRIME SCH (13:45)
--- NOTE | 2017-03-01 13:47 | Pulmonology Consult Note ---
<Shania Mejia - Last Filed: 03/01/17 14:18> Date of Encounter: 03/01/17 Medications and Allergies Levothyroxine Sodium [Synthroid] 200 mcg PO DAILY 02/08/16 [History] Polyethylene Glycol 3350 [MiraLAX] 17 gm PO DAILY PRN 02/08/16 [History] amLODIPine [Norvasc] 10 mg PO DAILY 02/14/16 [History] Aspirin [Lo-Dose Aspirin EC] 81 mg PO DAILY 05/26/16 [History] Atorvastatin [Lipitor] 40 mg PO DAILY 05/26/16 [History] Calcium Acetate [Phos-LO] 1,334 mg PO TIDWM 05/26/16 [History] Duloxetine HCl [Cymbalta] 30 mg PO DAILY 05/26/16 [History] Ergocalciferol (VITAMIN D2) [Vitamin D2] 50,000 unit PO WE 05/26/16 [History] Ezetimibe [Zetia] 10 mg PO DAILY 05/26/16 [History] Febuxostat [Uloric] 80 mg PO DAILY 05/26/16 [History] Furosemide [Lasix] 40 mg PO DAILY 05/26/16 [History] Gabapentin [Neurontin] 300 mg PO DAILY 05/26/16 [History] Hydralazine HCl 50 mg PO Q8H 05/26/16 [History] Isosorbide MONOnitrate (24 HR) [Imdur] 120 mg PO DAILY 05/26/16 [History] LORazepam [Ativan] 0.5 - 1 mg PO BID PRN 05/26/16 [History] Metoprolol XL (24 HR) Succ [Toprol Xl] 50 mg PO DAILY 05/26/16 [History] Renal Vitamin [Renal Caps Softgel] 1 mg PO DAILY 05/26/16 [History] Allopurinol [Zyloprim 300 MG] 300 mg PO DAILY 05/27/16 [History] Insulin LISPRO [HumaLOG] 0 units SQ DAILY PRN MDD 110 units daily 05/27/16 [ History] Meloxicam 15 mg PO DAILY 05/27/16 [History] Tramadol HCl [Ultram] 50 mg PO Q6HR PRN 08/11/16 [History] Cinacalcet [Sensipar] 30 mg PO DAILY 01/06/17 [History] Oxycodone HCl 10 mg PO TID PRN 01/06/17 [History] Insulin Glargine [Lantus] 10 unit SQ DAILY 02/11/17 [History] Clopidogrel [Plavix] 75 mg PO DAILY 02/27/17 [History] 3 Allergy/AdvReac Type Severity Reaction Status Date / Time IVP DYE Allergy See Uncoded 02/27/17 11:53 Comments ivp dye Allergy See Uncoded 02/27/17 11:53 Comments All Systems: A 10-system review of systems was performed and is negative for pertinent findings except as documented above in the HPI. Results - Laboratory Findings CBC and BMP: 03/01/17 14:02 03/01/17 05:39 PT/INR, D-dimer PT 10.6 Seconds (9.4-12.1) 02/28/17 04:48 Abnormal lab findings: Abnormal lab results RBC 3.30 M/mcL (3.82-4.97) L 03/01/17 05:39 Hgb 9.4 g/dL (11.5-15.4) L 03/01/17 14:02 Hct 28.9 % (35.3-44.9) L 03/01/17 14:02 Sodium 133 mEq/L (136-145) L 03/01/17 05:39 Potassium 5.0 mEq/L (3.5-4.5) H 03/01/17 05:39 Chloride 95 mEq/L (98-109) L 03/01/17 05:39 BUN 34 mg/dL (7-20) H 03/01/17 05:39 Creatinine 5.16 mg/dL (0.57-1.11) H 03/01/17 05:39 Est GFR ( Amer) 10 (> 60) L 03/01/17 05:39 Est GFR (Non-Af Amer) 8 (> 60) L 03/01/17 05:39 Glucose 237 mg/dL (70-99) H 03/01/17 05:39 POC Glucose 445 (58-89) H* 03/01/17 13:25 Hemoglobin A1c 9.3 % (-5.6) H 02/28/17 04:48 Calcium 8.4 mg/dL (8.6-10.8) L 03/01/17 05:39 Alkaline Phosphatase 170 Units/L (38-126) H 03/01/17 05:39 Albumin 2.7 g/dL (3.5-5.0) L 03/01/17 05:39 Globulin 3.9 g/dL (2.4-3.5) H 03/01/17 05:39 Albumin/Globulin Ratio 0.7 (1.1-2.2) L 03/01/17 05:39 Triglycerides 180 mg/dL (< 150) H 02/28/17 04:48 LDL Cholesterol, Calc 107 mg/dL (0-99) H 02/28/17 04:48 VLDL Cholesterol, Calc 36 mg/dL (< 31) H 02/28/17 04:48 Stool Occult Blood Positive (Negative) A 02/27/17 12:40 Stl C. diff Tox A/B PCR See reflex test (Not detect) A 02/27/17 18:45 Stool EPEC (PCR) DETECTED (Not detect) A 02/27/17 18:45 - Microbiology Findings Microbiology Findings: Microbiology, Last 48 Hours 02/27/17 19:45 Blood Culture - Preliminary Peripheral Venipuncture No growth. 02/27/17 19:45 Blood Culture - Preliminary Peripheral Venipuncture No growth. - Clinical Findings Intake & Output: Intake & Output 02/28/17 03/01/17 03/01/17 23:59 07:59 15:59 Intake Total 1320 / 1320 1060 / 1060 Balance 1320 / 1320 1060 / 1060 Weight 74.5 kg Consult Discharge Plan - Plan Referrals: Hugo Mercedes MD [Primary Care Provider] - 03/10/17 2:00 pm (Please follow up as schedule...) - Attending Attestation I examined this patient and my medical decision-making was reviewed with the Resident Physician. I agree with the documented findings, disposition and treatment plan as described except to the extent set forth below. Patient seen and examined. Labs, radiology, chart personally reviewed. Agree with resident's history and physical, assessment, plan with following comments: BUS ANALYST: Patient follows commands, Pulmonary: Acceptable oxygenation and ventilation Cardiovascular: stable cardiology input due to be important regarding anti- platelets treatment and patient would be high risk for thrombosis and I discussed this with the . GI: Nutrition per dietary and GI prophylaxis per routine. Patient with GI bleed and I received a call from hand inspector regarding the finding and patient is going for bleeding scan. Surgery has been consulted. Heme: DVT prophylaxis per routine. The patient hemoglobin is acceptable and to monitor. 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 Endorcine: blood glucose is monitored Lines: all lines checked and no evidence of infections Skin: skin care to prevent pressure ulcers per nursing routine care Patient will be monitored in intensive care unit because of the risk of potential life-threatening bleeding. Thank you very much for the consultation. <April Moreno - Last Filed: 03/01/17 18:13> Date of Encounter: 03/01/17 Time of Encounter: 13:41 Assessment and Plan (1) GI bleed Current Visit: Yes Status: Acute 71 y F s/p PCI to the proximal LAD RCA and circumflex February 13, 2017. Patient presented to ED with rectal bleeding s/p fall Patient has been on dual anti-platelet therapy s/p PCI x 3 weeks Timed H/H: Last Hemoglobin values stables - -10.8 -9.9 -9.4 -9.5 Continue timed H/H GI on consult. Patient underwent EGD/ colonoscopy Impression: Blood found in the sigmoid colon , transverse colon, and in ascending colon. No blood in cecum. No AMS or diverticulae noted. No source of bleeding found. Non-bleeding internal hemorrhoid - Grade II Scan Impression: No evidence of active GI bleeding during acquisition. Uptake within the stomach which remains stable throughout the exam most consistent with free pertechnetate. If the patient shows hemodynamic signs of an active bleed in the next 20 hours, additional images can be acquired. -Cardiology on consult Per cardiology, will hold aspirin for now. Continue plavix due to history of PCI If Hemoglobin < 9, will notify cardio as requested Continue Protonix Qualifiers: GI bleed type/associated pathology: anorectal hemorrhage Qualified Code(s) : K62.5 - Hemorrhage of anus and rectum (2) ESRD (end stage renal disease) Current Visit: Yes Status: Chronic Nephrology following, appreciate recs HD MWF and as needed. Patient receiving dialysis today for hyperkalemia. Renal diet. Adjust medication for renal function. (3) CAD (coronary artery disease) Current Visit: Yes Status: Chronic Cardiology on consult Plan as above Qualifiers: Coronary Disease-Associated Artery/Lesion type: [place] artery [place] vs. transplanted heart: [place] heart Associated angina: angina presence unspecified Qualified Code(s): I25.10 - Atherosclerotic heart disease of [place] coronary artery without angina pectoris (4) Diabetes Current Visit: Yes Status: Chronic Elevated blood glucose after holding for insulin Maintain patient on insulin sliding scale Will monitor glucose closely Qualifiers: Diabetes mellitus type: type 2 Diabetes mellitus complication status: with circulatory complication Diabetes mellitus complication detail: with other circulatory complications Diabetes mellitus manager intermediate insulin use: with care home use Qualified Code(s): E11.59 - Type 2 diabetes mellitus with other circulatory complications; 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 (5) Enteropathogenic Escherichia coli infection Current Visit: Yes Status: Acute Stool positive for EPEC Continue support treatment History of Present Illness Consult date: 03/01/17 Requesting physician: Fabrizio Morton Reason for consult: other Chief complaint: Monitoring for GI bleed Past Med Surg Social Fam HX - Past Medical History Medical history: diabetes, renal disease, hyperlipidemia, hypertension, thyroid disease, coronary artery disease, dialysis Psychiatric history: anxiety, depression - Past Surgical History Surgical History: hysterectomy (Partial), orthopedic, other (Back surgery), other, vascular surgery - Social History Smoking Status: Never smoker Smokeless Tobacco Status: No Alcohol use: none Drug use: none - Family History Mother Race: Living Status: Age at : 77 Cause of : CAD Hx Family Cardiac Disorders: Yes (CAD) Father Race: Living Status: Age at : 50 Cause of : Colon cancer Hx Family Cancer: Yes (Colon) Hx Family Endocrine Disorder: Yes (DM) Brother Race: Living Status: Age at : 73 Cause of : Colon cancer Hx Family Cancer: Yes (Colon) Hx Family Endocrine Disorder: Yes (DM) Sister Race: Living Status: Age at : 36 Cause of : Cervical cancer Hx Family Cancer: Yes (Cervical) Hx Family Endocrine Disorder: Yes (DM) All Systems: A 10-system review of systems was performed and is negative for pertinent findings except as documented above in the HPI. - Constitutional Constitutional: no anorexia, no chills - Cardiovascular Cardiovascular: no chest pain - Respiratory Respiratory: no cough, no dyspnea - Gastrointestinal Gastrointestinal: no abdominal pain - Musculoskeletal Musculoskeletal: no joint pain, no joint swelling, no muscle weakness Physical Examination Vital Signs: Vital Signs, Last 4 Hours Pulse Resp BP Pulse Ox 03/01/17 10:05 75 18 157/76 92 General appearance: no acute distress Eyes: nonicteric ENT: oropharynx moist Mallampati (class): 2 Neck: supple Effort: normal Auscultation: bilateral: clear Cardiovascular: regular rate and rhythm Gastrointestinal: normoactive bowel sounds (No rebound tenderness. Soft. No guarding), tender (mild tenderness on palpation in epigastric region ) Extremities: no edema normal mental status mood appropriate Results - Laboratory Findings CBC and BMP: 03/01/17 17:00 03/01/17 05:39 PT/INR, D-dimer PT 10.6 Seconds (9.4-12.1) 02/28/17 04:48 Abnormal lab findings: Abnormal lab results RBC 3.30 M/mcL (3.82-4.97) L 03/01/17 05:39 Hgb 9.9 g/dL (11.5-15.4) L 03/01/17 10:15 Hct 29.8 % (35.3-44.9) L 03/01/17 10:15 Sodium 133 mEq/L (136-145) L 03/01/17 05:39 Potassium 5.0 mEq/L (3.5-4.5) H 03/01/17 05:39 Chloride 95 mEq/L (98-109) L 03/01/17 05:39 BUN 34 mg/dL (7-20) H 03/01/17 05:39 Creatinine 5.16 mg/dL (0.57-1.11) H 03/01/17 05:39 Est GFR ( Amer) 10 (> 60) L 03/01/17 05:39 Est GFR (Non-Af Amer) 8 (> 60) L 03/01/17 05:39 Glucose 237 mg/dL (70-99) H 03/01/17 05:39 POC Glucose 445 (58-89) H* 03/01/17 13:25 Hemoglobin A1c 9.3 % (-5.6) H 02/28/17 04:48 Calcium 8.4 mg/dL (8.6-10.8) L 03/01/17 05:39 Alkaline Phosphatase 170 Units/L (38-126) H 03/01/17 05:39 Albumin 2.7 g/dL (3.5-5.0) L 03/01/17 05:39 Globulin 3.9 g/dL (2.4-3.5) H 03/01/17 05:39 Albumin/Globulin Ratio 0.7 (1.1-2.2) L 03/01/17 05:39 Triglycerides 180 mg/dL (< 150) H 02/28/17 04:48 LDL Cholesterol, Calc 107 mg/dL (0-99) H 02/28/17 04:48 VLDL Cholesterol, Calc 36 mg/dL (< 31) H 02/28/17 04:48 Stool Occult Blood Positive (Negative) A 02/27/17 12:40 Stl C. diff Tox A/B PCR See reflex test (Not detect) A 02/27/17 18:45 Stool EPEC (PCR) DETECTED (Not detect) A 02/27/17 18:45 - Microbiology Findings Microbiology Findings: Microbiology, Last 48 Hours 02/27/17 19:45 Blood Culture - Preliminary Peripheral Venipuncture No growth. 02/27/17 19:45 Blood Culture - Preliminary Peripheral Venipuncture No growth. - Clinical Findings Intake & Output: Intake & Output 02/28/17 03/01/17 03/01/17 23:59 07:59 15:59 Intake Total 1320 / 1320 1060 / 1060 Balance 1320 / 1320 1060 / 1060 Weight 74.5 kg
[2017-03-01 14:13] LABS: Hematocrit 28.9 % (35.3-44.9); Hemoglobin 9.4 g/dL (11.5-15.4)
[2017-03-01] MEDS: Pantoprazole 40 MG VIAL IVP SCH ×2 (14:14→21:09)
[2017-03-01] MEDS: Renal Vitamin 1 MG CAPSULE PO SCH (15:31)
[2017-03-01] MEDS: Gabapentin 300 MG CAPSULE PO SCH (15:31)
[2017-03-01 17:04] LABS: Hematocrit 28.1 % (35.3-44.9); Hemoglobin 9.5 g/dL (11.5-15.4)
[2017-03-01] MEDS ORDERED: *HR* Metoprolol 5 MG/5 ML VIAL IVP ONE (18:09)
[2017-03-01] MEDS ORDERED: *HR* Propofol 200 MG/20 ML VIAL IVP ONE (18:09)
--- NOTE | 2017-03-01 18:13 | General Surgery Consult Note ---
<Bernard Johnson - Last Filed: 03/01/17 18:27> Date of Encounter: 03/01/17 Time of Encounter: 14:00 Assessment and Plan (1) GI bleed Current Visit: Yes Status: Acute Patient complains of rectal bleeding of one week's duration. Upper endoscopy did not demonstrate any evidence of a bleed. Demonstrate gastritis, gastroparesis secondary to diabetes mellitus type 2, no specimens were taken. Colonoscopy was performed on 03/01/17. Blood was found in the sigmoid colon, transverse colon, ascending colon. Unable to reach terminal ileum. No blood found in the cecum. No AVMs or diverticula were noted. No source of bleeding was found. Nonbleeding internal hemorrhoids were discovered. Hemorrhoids with grade 2; no specimens collected. Bleeding study was performed, no active GI bleed was found during acquisition. -Closely monitor vital signs. -Serial H&H. -Hold aspirin and Plavix. -Fresh frozen plasma. Qualifiers: GI bleed type/associated pathology: anorectal hemorrhage Qualified Code(s) : K62.5 - Hemorrhage of anus and rectum (2) Abdominal cramping, generalized Current Visit: Yes Status: Acute (3) Anticoagulation management encounter Current Visit: Yes Status: Acute Hold aspirin and Plavix. -Serial H&H. -Fresh frozen plasma. (4) Diabetes Current Visit: Yes Status: Chronic Continue home meds. Qualifiers: Diabetes mellitus type: type 2 Diabetes mellitus complication status: with circulatory complication Diabetes mellitus complication detail: with other circulatory complications Diabetes mellitus termite treater helper insulin use: with [facility] use Qualified Code(s): E11.59 - Type 2 diabetes mellitus with other circulatory complications; Z79.4 - [facility] (current) use of insulin (5) ESRD (end stage renal disease) Current Visit: Yes Status: Chronic Patient received dialysis today. Patient is normally a Friday, Friday, Friday dialysis patient. History of Present Illness Consult date: 03/01/17 History of present illness: Mrs. Moffett is a 71-year-old female with a past medical history of heart catheterization on 02/13/17 with placement of 3 stents, diabetes mellitus, ESRD requiring dialysis on Friday, Friday, Friday, hyperlipidemia, hypertension, and thyroid disease. Patient presented to the emergency department with chief complaint of rectal bleeding. Patient notes that this is been going on for the last week. Patient was started on Plavix and aspirin after coronary stent on . She states that her noticed dark and bright red bleeding in her depends 4 days ago. This occurs with upper bowel movement, and has been getting worse. It started off with clots, and now is bright red blood. She also complains of some abdominal pain, particularly in the lower abdomen. This is been going on for the past 3 weeks. She denies any fever, dyspnea, or chest pain. She notes that she has had increased fatigue over the last 4-5 months. Upper endoscopy was performed on 02/28/17. Did not demonstrate any source of bleeding. Colonoscopy was was performed on 03/01/17. Blood was found in sigmoid colon, transverse colon, and ascending colon. No source of bleeding was found. No AVMs or diverticula were noted. During bleeding study, no evidence of active GI bleed was found. Past Med Surg Social Fam HX - Past Medical History Medical history: diabetes, renal disease, hyperlipidemia, hypertension, thyroid disease, coronary artery disease, dialysis Psychiatric history: anxiety, depression - Past Surgical History Surgical History: hysterectomy (Partial), orthopedic, other (Back surgery), other, vascular surgery - Social History Smoking Status: Never smoker Smokeless Tobacco Status: No Alcohol use: none Drug use: none - Family History Mother Race: Living Status: Age at : 77 Cause of : CAD Hx Family Cardiac Disorders: Yes (CAD) Father Race: Living Status: Age at : 50 Cause of : Colon cancer Hx Family Cancer: Yes (Colon) Hx Family Endocrine Disorder: Yes (DM) Brother Race: Living Status: Age at : 73 Cause of : Colon cancer Hx Family Cancer: Yes (Colon) Hx Family Endocrine Disorder: Yes (DM) Sister Race: Living Status: Age at : 36 Cause of : Cervical cancer Hx Family Cancer: Yes (Cervical) Hx Family Endocrine Disorder: Yes (DM) Medications and Allergies Levothyroxine Sodium [Synthroid] 200 mcg PO DAILY 02/08/16 [History] Polyethylene Glycol 3350 [MiraLAX] 17 gm PO DAILY PRN 02/08/16 [History] amLODIPine [Norvasc] 10 mg PO DAILY 02/14/16 [History] Aspirin [Lo-Dose Aspirin EC] 81 mg PO DAILY 05/26/16 [History] Atorvastatin [Lipitor] 40 mg PO DAILY 05/26/16 [History] Calcium Acetate [Phos-LO] 1,334 mg PO TIDWM 05/26/16 [History] Duloxetine HCl [Cymbalta] 30 mg PO DAILY 05/26/16 [History] Ergocalciferol (VITAMIN D2) [Vitamin D2] 50,000 unit PO WE 05/26/16 [History] Ezetimibe [Zetia] 10 mg PO DAILY 05/26/16 [History] Febuxostat [Uloric] 80 mg PO DAILY 05/26/16 [History] Furosemide [Lasix] 40 mg PO DAILY 05/26/16 [History] Gabapentin [Neurontin] 300 mg PO DAILY 05/26/16 [History] Hydralazine HCl 50 mg PO Q8H 05/26/16 [History] Isosorbide MONOnitrate (24 HR) [Imdur] 120 mg PO DAILY 05/26/16 [History] LORazepam [Ativan] 0.5 - 1 mg PO BID PRN 05/26/16 [History] Metoprolol XL (24 HR) Succ [Toprol Xl] 50 mg PO DAILY 05/26/16 [History] Renal Vitamin [Renal Caps Softgel] 1 mg PO DAILY 05/26/16 [History] Allopurinol [Zyloprim 300 MG] 300 mg PO DAILY 05/27/16 [History] Insulin LISPRO [HumaLOG] 0 units SQ DAILY PRN MDD 110 units daily 05/27/16 [ History] Meloxicam 15 mg PO DAILY 05/27/16 [History] Tramadol HCl [Ultram] 50 mg PO Q6HR PRN 08/11/16 [History] Cinacalcet [Sensipar] 30 mg PO DAILY 01/06/17 [History] Oxycodone HCl 10 mg PO TID PRN 01/06/17 [History] Insulin Glargine [Lantus] 10 unit SQ DAILY 02/11/17 [History] Clopidogrel [Plavix] 75 mg PO DAILY 02/27/17 [History] 3 Allergy/AdvReac Type Severity Reaction Status Date / Time IVP DYE Allergy See Uncoded 02/27/17 11:53 Comments ivp dye Allergy See Uncoded 02/27/17 11:53 Comments Review of Systems All systems PM: A 10-system review of systems was performed and is negative for pertinent findings except as documented above in the HPI. - Constitutional as per HPI, fatigue - Cardiovascular as per HPI, no chest pain, no chest pain at rest, no chest pain with activity, no claudication, no diaphoresis - Respiratory as per HPI, no cough, no wheezing, no pain with cough - Gastrointestinal abdominal pain, hematochezia, no diarrhea, no dyspepsia, no melena, no nausea, no vomiting General Surgery Exam Initial Vital Signs Temp Pulse Resp BP Pulse Ox 97.5 F L 70 20 173/81 94 02/27/17 11:53 02/27/17 11:53 02/27/17 11:53 02/27/17 11:53 02/27/17 11:53 - Neck no masses, no bruits, trachea midline, no lymphadectomy, no venous distension - Respiratory normal expansion, normal respiratory effort, clear to percussion, clear to auscultation - Cardiovascular Cardiovascular exam: Present: RRR, no murmurs/rubs/gallops - Abdomen Abdomen general surgery: Present: bowel sounds present, soft Abdominal Tenderness: Present: RLQ, LLQ - Psychiatric Psychiatric general surgery: Present: A&Ox3 Exam Initial Vital Signs Temp Pulse Resp BP Pulse Ox 97.5 F L 70 20 173/81 94 02/27/17 11:53 02/27/17 11:53 02/27/17 11:53 02/27/17 11:53 02/27/17 11:53 Results - Labs 03/01/17 17:00 03/01/17 05:39 Abnormal lab results RBC 3.30 M/mcL (3.82-4.97) L 03/01/17 05:39 Hgb 9.5 g/dL (11.5-15.4) L 03/01/17 17:00 Hct 28.1 % (35.3-44.9) L 03/01/17 17:00 Sodium 133 mEq/L (136-145) L 03/01/17 05:39 Potassium 5.0 mEq/L (3.5-4.5) H 03/01/17 05:39 Chloride 95 mEq/L (98-109) L 03/01/17 05:39 BUN 34 mg/dL (7-20) H 03/01/17 05:39 Creatinine 5.16 mg/dL (0.57-1.11) H 03/01/17 05:39 Est GFR ( Amer) 10 (> 60) L 03/01/17 05:39 Est GFR (Non-Af Amer) 8 (> 60) L 03/01/17 05:39 Glucose 237 mg/dL (70-99) H 03/01/17 05:39 POC Glucose 98 (58-89) H 03/01/17 16:55 Hemoglobin A1c 9.3 % (-5.6) H 02/28/17 04:48 Calcium 8.4 mg/dL (8.6-10.8) L 03/01/17 05:39 Alkaline Phosphatase 170 Units/L (38-126) H 03/01/17 05:39 Albumin 2.7 g/dL (3.5-5.0) L 03/01/17 05:39 Globulin 3.9 g/dL (2.4-3.5) H 03/01/17 05:39 Albumin/Globulin Ratio 0.7 (1.1-2.2) L 03/01/17 05:39 Triglycerides 180 mg/dL (< 150) H 02/28/17 04:48 LDL Cholesterol, Calc 107 mg/dL (0-99) H 02/28/17 04:48 VLDL Cholesterol, Calc 36 mg/dL (< 31) H 02/28/17 04:48 Stool Occult Blood Positive (Negative) A 02/27/17 12:40 Stl C. diff Tox A/B PCR See reflex test (Not detect) A 02/27/17 18:45 Stool EPEC (PCR) DETECTED (Not detect) A 02/27/17 18:45 Diabetes panel 03/01/17 Range/Units 05:39 Sodium 133 L (136-145) mEq/L Potassium 5.0 H (3.5-4.5) mEq/L Chloride 95 L (98-109) mEq/L Carbon Dioxide 25 (19-29) mEq/L BUN 34 H (7-20) mg/dL Creatinine 5.16 H (0.57-1.11) mg/dL Glucose 237 H (70-99) mg/dL Calcium 8.4 L (8.6-10.8) mg/dL AST 22 (5-34) Units/L ALT 16 (0-55) Units/L Alkaline Phosphatase 170 H (38-126) Units/L Albumin 2.7 L (3.5-5.0) g/dL Calcium panel 03/01/17 Range/Units 05:39 Calcium 8.4 L (8.6-10.8) mg/dL Phosphorus 4.6 (2.3-4.7) mg/dL Albumin 2.7 L (3.5-5.0) g/dL Pituitary panel 03/01/17 Range/Units 05:39 Sodium 133 L (136-145) mEq/L Potassium 5.0 H (3.5-4.5) mEq/L Chloride 95 L (98-109) mEq/L Carbon Dioxide 25 (19-29) mEq/L BUN 34 H (7-20) mg/dL Creatinine 5.16 H (0.57-1.11) mg/dL Glucose 237 H (70-99) mg/dL Calcium 8.4 L (8.6-10.8) mg/dL Adrenal panel 03/01/17 Range/Units 05:39 Sodium 133 L (136-145) mEq/L Potassium 5.0 H (3.5-4.5) mEq/L Chloride 95 L (98-109) mEq/L Carbon Dioxide 25 (19-29) mEq/L BUN 34 H (7-20) mg/dL Creatinine 5.16 H (0.57-1.11) mg/dL Glucose 237 H (70-99) mg/dL Calcium 8.4 L (8.6-10.8) mg/dL Total Bilirubin 0.5 (0.2-1.2) mg/dL AST 22 (5-34) Units/L ALT 16 (0-55) Units/L Alkaline Phosphatase 170 H (38-126) Units/L Albumin 2.7 L (3.5-5.0) g/dL All other labs normal. Consult Discharge Plan - Plan Referrals: Hugo Mercedes MD [Primary Care Provider] - 03/10/17 2:00 pm (Please follow up as schedule...) <Hugo Bernal T - Last Filed: 03/02/17 10:32> Date of Encounter: 03/02/17 Review of Systems All systems PM: A 10-system review of systems was performed and is negative for pertinent findings except as documented above in the HPI. General Surgery Exam Initial Vital Signs Temp Pulse Resp BP Pulse Ox 97.5 F L 70 20 173/81 94 02/27/17 11:53 02/27/17 11:53 02/27/17 11:53 02/27/17 11:53 02/27/17 11:53 Exam Initial Vital Signs Temp Pulse Resp BP Pulse Ox 97.5 F L 70 20 173/81 94 02/27/17 11:53 02/27/17 11:53 02/27/17 11:53 02/27/17 11:53 02/27/17 11:53 Results - Labs 03/02/17 03:18 03/02/17 03:18 Abnormal lab results RBC 2.74 M/mcL (3.82-4.97) L 03/02/17 03:18 Hgb 9.0 g/dL (11.5-15.4) L 03/02/17 03:18 Hct 27.4 % (35.3-44.9) L 03/02/17 03:18 BUN 23 mg/dL (7-20) H D 03/02/17 03:18 Creatinine 4.10 mg/dL (0.57-1.11) H 03/02/17 03:18 Est GFR ( Amer) 13 (> 60) L 03/02/17 03:18 Est GFR (Non-Af Amer) 11 (> 60) L 03/02/17 03:18 Glucose 282 mg/dL (70-99) H 03/02/17 03:18 POC Glucose 347 (58-89) H 03/02/17 07:43 Hemoglobin A1c 9.3 % (-5.6) H 02/28/17 04:48 Calcium 8.3 mg/dL (8.6-10.8) L 03/02/17 03:18 Alkaline Phosphatase 155 Units/L (38-126) H 03/02/17 03:18 Serum Total Protein 5.7 g/dL (6.0-8.3) L 03/02/17 03:18 Albumin 2.4 g/dL (3.5-5.0) L 03/02/17 03:18 Albumin/Globulin Ratio 0.7 (1.1-2.2) L 03/02/17 03:18 Triglycerides 180 mg/dL (< 150) H 02/28/17 04:48 LDL Cholesterol, Calc 107 mg/dL (0-99) H 02/28/17 04:48 VLDL Cholesterol, Calc 36 mg/dL (< 31) H 02/28/17 04:48 Stool Occult Blood Positive (Negative) A 02/27/17 12:40 Stl C. diff Tox A/B PCR See reflex test (Not detect) A 02/27/17 18:45 Stool EPEC (PCR) DETECTED (Not detect) A 02/27/17 18:45 Diabetes panel 03/02/17 Range/Units 03:18 Sodium 137 (136-145) mEq/L Potassium 4.0 D (3.5-4.5) mEq/L Chloride 101 (98-109) mEq/L Carbon Dioxide 26 (19-29) mEq/L BUN 23 H D (7-20) mg/dL Creatinine 4.10 H (0.57-1.11) mg/dL Glucose 282 H (70-99) mg/dL Calcium 8.3 L (8.6-10.8) mg/dL AST 17 (5-34) Units/L ALT 14 (0-55) Units/L Alkaline Phosphatase 155 H (38-126) Units/L Albumin 2.4 L (3.5-5.0) g/dL Calcium panel 03/02/17 03/02/17 Range/Units 03:18 03:18 Calcium 8.3 L (8.6-10.8) mg/dL Phosphorus 3.7 (2.3-4.7) mg/dL Albumin 2.4 L (3.5-5.0) g/dL Pituitary panel 03/02/17 Range/Units 03:18 Sodium 137 (136-145) mEq/L Potassium 4.0 D (3.5-4.5) mEq/L Chloride 101 (98-109) mEq/L Carbon Dioxide 26 (19-29) mEq/L BUN 23 H D (7-20) mg/dL Creatinine 4.10 H (0.57-1.11) mg/dL Glucose 282 H (70-99) mg/dL Calcium 8.3 L (8.6-10.8) mg/dL Adrenal panel 03/02/17 Range/Units 03:18 Sodium 137 (136-145) mEq/L Potassium 4.0 D (3.5-4.5) mEq/L Chloride 101 (98-109) mEq/L Carbon Dioxide 26 (19-29) mEq/L BUN 23 H D (7-20) mg/dL Creatinine 4.10 H (0.57-1.11) mg/dL Glucose 282 H (70-99) mg/dL Calcium 8.3 L (8.6-10.8) mg/dL Total Bilirubin 0.4 (0.2-1.2) mg/dL AST 17 (5-34) Units/L ALT 14 (0-55) Units/L Alkaline Phosphatase 155 H (38-126) Units/L Albumin 2.4 L (3.5-5.0) g/dL All other labs normal. - Attending Attestation I examined this patient and my medical decision-making was reviewed with the Resident Physician. I agree with the documented findings, disposition and treatment plan as described except to the extent set forth below. The patient is seen and evaluated with the resident. The patient underwent upper and lower endoscopy today. The upper endoscopy was completely normal. Lower endoscopy demonstrated some blood in the colon but no obvious bleeding source. A follow-up bleeding scan was negative. The patient is on dialysis as well as aggressive antiplatelet therapy after coronary artery stent placement 3 weeks ago. Currently the patient is not receiving blood transfusion. I would recommend stopping the antiplatelet therapy until the clinical bleeding subsides. Further workup for bleeding source may be necessary in the future with capsule endoscopy. Hugo Bernal MD FACS
--- NOTE | 2017-03-01 19:29 | Internal Med Progress Note ---
Date of Encounter: 03/02/17 Time of Encounter: 19:27 - Assessment and plan (1) GI bleed Current Visit: Yes Status: Acute Qualifiers: GI bleed type/associated pathology: anorectal hemorrhage Qualified Code(s) : K62.5 - Hemorrhage of anus and rectum (2) C. difficile colitis Current Visit: Yes Status: Acute (3) CAD (coronary artery disease) Current Visit: Yes Status: Chronic Qualifiers: Coronary Disease-Associated Artery/Lesion type: [place] artery [place] vs. transplanted heart: [place] heart Associated angina: angina presence unspecified Qualified Code(s): I25.10 - Atherosclerotic heart disease of [place] coronary artery without angina pectoris (4) ESRD (end stage renal disease) on dialysis Current Visit: Yes Status: Chronic (5) Atrial fibrillation Current Visit: Yes Status: Chronic Qualifiers: Atrial fibrillation type: chronic Qualified Code(s): I48.2 - Chronic atrial fibrillation (6) Diabetes Current Visit: Yes Status: Chronic Qualifiers: Diabetes mellitus type: type 2 Diabetes mellitus complication status: with circulatory complication Diabetes mellitus complication detail: with other circulatory complications Diabetes mellitus intermediate frame tender insulin use: with [facility] use Qualified Code(s): E11.59 - Type 2 diabetes mellitus with other circulatory complications; Z79.4 - [facility] living (current) use of insulin - Subjective Interval history: Mrs. Ursula Moffett had PCI last month and now she is presented with painless acute GI bleed with diarrhea. Apparently patient who is on hemodialysis was admitted last month for pneumonia and also had PCI being placed on aspirin and Plavix. Now she has returned with symptomatic GI bleed with a fall and bright red blood for 4 days. #1 acute GI bleed suspect diverticular. Discuss case with Dr. Morton this morning who did colonoscopy. Blood was found in whole colon. Patient was transferred to intensive care unit and general surgery has been consulted. Pulmonology is is also on the case now. Tagged scan has been reported negative for active bleed. H&H every 6. Aspirin is on hold but cardiology has recommended to continue Plavix for now keeping an eye on hemoglobin. #2 acute C. difficile diverticulitis as stool C. difficile positive patient is on Flagyl. She was started on Rocephin yesterday by admitting team which will be DC'd as she had pneumonia only 4 weeks ago and chest x-ray showed only atelectasis with bilateral effusion which is perhaps fluid retention secondary to ESRD. After dialysis the chest x-ray can be repeated at that this time she is afebrile and without any white cell count rise. #3 CAD status post PCI including LAD cardiology is on case. Asymptomatic at this point. Request is to continue aspirin and Plavix and will continue monitoring globin deceived this is possible. #4 uncontrolled diabetes patient has history of DKA and she is on insulin pump. Discussed with pharmacy and she has been started on sliding scale and will watch her very closely. Hemoglobin A1c was 9.5 and cholesterol is also elevated signifying very poor control. #5 ESRD nephrology is on case will get dialysis follow electrolytes - Constitutional Vitals: Temp Pulse Resp BP Pulse Ox 98.3 F 88 13 127/63 99 03/01/17 17:15 03/01/17 18:28 03/01/17 18:28 03/01/17 18:28 03/01/17 18:28 General appearance: Present: cooperative, mild distress, A&O X 3, pleasant, answers questions appropriately - Head Head exam: Present: atraumatic, normocephalic - Eye Eye exam: Present: PERRL, conjuntiva pink, sclera anicteric Pupils: Present: PERRL - Neck Neck exam general surgery: Present: supple, trachea midline. Absent: lymphadenopathy - Respiratory Respiratory exam: Present: CTAB. Absent: accessory muscle use, rales, rhonchi, wheezes - Cardiovascular Cardiovascular exam: Present: RRR, +S1, +S2. Absent: diastolic murmur, gallop, rubs, systolic murmur - GI/Abdominal GI/Abdominal exam: Present: normal bowel sounds, soft, no peritoneal signs. Absent: distended, tenderness - Extremities Exam Extremities exam: Present: warm, radial pulses palpable and symmetrical. Absent : calf tenderness, cyanotic, pedal edema - Neurological Exam Neurological exam: Present: CN II-XII intact, oriented X3, no focal deficits. Absent: pronater drift, facial droop, speech deficit - Skin Skin exam: Present: dry, intact Internal Medicine: Result - Labs CBC & Chem 7: 03/02/17 13:04 03/02/17 03:18 Labs: Short CBC 03/01/17 03/01/17 03/01/17 Range/Units 05:39 10:15 14:02 WBC 8.2 (4.3-11.1) K/mcL Hgb 10.8 L 9.9 L 9.4 L (11.5-15.4) g/dL Hct 32.7 L 29.8 L 28.9 L (35.3-44.9) % Plt Count 303 (140-400) K/mcL Neutrophils # 5.4 (1.6-8.9) K/mcL 03/01/17 Range/Units 17:00 WBC (4.3-11.1) K/mcL Hgb 9.5 L (11.5-15.4) g/dL Hct 28.1 L (35.3-44.9) % Plt Count (140-400) K/mcL Neutrophils # (1.6-8.9) K/mcL BMP 03/01/17 05:39 Sodium 133 L Potassium 5.0 H Chloride 95 L Carbon Dioxide 25 BUN 34 H Creatinine 5.16 H Glucose 237 H Calcium 8.4 L Liver Function 03/01/17 Range/Units 05:39 Total Bilirubin 0.5 (0.2-1.2) mg/dL AST 22 (5-34) Units/L ALT 16 (0-55) Units/L Alkaline Phosphatase 170 H (38-126) Units/L Albumin 2.7 L (3.5-5.0) g/dL - ABG Interpretation ABG results: PT/INR, D-dimer PT 10.6 Seconds (9.4-12.1) 02/28/17 04:48 - Impressions Impressions GI Bleed Scan Nuclear Medicine 03/01/17 09:28 IMPRESSION: No evidence of active GI bleeding during acquisition. Uptake within the stomach which remains stable throughout the exam most consistent with free pertechnetate. RECOMMENDATIONS: If the patient shows hemodynamic signs of an active bleed in the next 20 hours, additional images can be acquired. D/ / 03/01/2017 13:49:55 Lopez Flores MD / [email or web address] Interpreting Provider: Lopez Flores MD - VTE Documentation of Mechanical Device: Intermittent pneumatic compression device Consult Discharge Plan - Plan Referrals: Hugo Mercedes MD [Primary Care Provider] - 03/10/17 2:00 pm (Please follow up as schedule...) Prescriptions: MetroNIDAZOLE 500 MG/100 ML [Flagyl Premix 500 MG/100 ML] 500 mg IVPB Q8H #1 bag
[2017-03-01 20:18] LABS: Hematocrit 27.8 % (35.3-44.9); Hemoglobin 9.4 g/dL (11.5-15.4)
--- NOTE | 2017-03-01 22:43 | Cardiology Progress Note ---
Date of Encounter: 03/01/17 Time of Encounter: 22:38 Assessment and Plan (1) CAD (coronary artery disease) Current Visit: Yes Status: Chronic As above, hold ASA now but only hold plavix if life threatening bleed due to multiple vessel PCI less than a month ago. High risk for stent thrombosis and cardiac events/mortality. Please notify cardiology if Hgb drops below 9.0 Qualifiers: Coronary Disease-Associated Artery/Lesion type: [place] artery [place] vs. transplanted heart: [place] heart Associated angina: angina presence unspecified Qualified Code(s): I25.10 - Atherosclerotic heart disease of [place] coronary artery without angina pectoris Discussion w patient/family: The assessment and plan as outlined above was discussed with the patient and/or family members who expressed understanding and agreement. All questions were answered. Thank you for involving us in the care of your patient. Please call with any questions. 71-year-old female as described above status post PCI less than a month ago presents with a rectal bleed and stable hemoglobin. Asymptomatic from a cardiac status. Holding aspirin and Plavix would result in high risk for stent thrombosis which carries a high risk for mortality and morbidity. Recommend continuing aspirin and Plavix unless life-threatening bleed occurs. Subjective Principal diagnosis: CAD and GI bleed Interval history: 71-year-old female as described above status post PCI less than a month ago presents with a lowe GI Bleed. Asymptomatic from a cardiac status denies Chest pain or SOB. Holding aspirin and Plavix would result in high risk for stent thrombosis which carries a high risk for mortality and morbidity. With recent findings on Colonoscopy, we can hold ASA at this time but continue Plavix daily. Serial Hgb levels stable at around 9.4 last at 8pm. If hemodynamically unstable or significant blood loss and drop in Hgb stop Plavix. Objective Vital Signs, Last 4 Hours Temp Pulse Resp BP Pulse Ox 03/01/17 21:03 98.3 F 12 99 03/01/17 20:00 81 12 147/67 98 03/01/17 19:00 81 14 135/63 98 General: Conversant, No Apparent Distress HEENT: Atraumatic, Normocephaly, Mucus Membranes Moist Neck: No JVD, Normal carotid pulses Cardiac: Reg Rate and Rhythm, Normal S1 and S2, No Murmur Lungs: Normal Breath Sounds, No Wheeze, Rales, Rhonchi Neuro: Alert and responsive, No focal deficits noted Abdomen: Soft, Non-Tender Skin: No rashes noted on visualized skin Musculoskeletal: No Chest Wall Tenderness Extremities: No Clubbing, No Cyanosis, No Edema, Normal Pulses Results 03/01/17 20:10 03/01/17 05:39 Lab Results 03/01/17 03/01/17 03/01/17 05:39 05:39 10:15 WBC 8.2 Hgb 10.8 L 9.9 L Hct 32.7 L 29.8 L Plt Count 303 Sodium 133 L Potassium 5.0 H Chloride 95 L Carbon Dioxide 25 BUN 34 H Creatinine 5.16 H Glucose 237 H Calcium 8.4 L Magnesium 1.8 Total Bilirubin 0.5 AST 22 ALT 16 Alkaline Phosphatase 170 H 03/01/17 03/01/17 03/01/17 14:02 17:00 20:10 WBC Hgb 9.4 L 9.5 L 9.4 L Hct 28.9 L 28.1 L 27.8 L Plt Count Sodium Potassium Chloride Carbon Dioxide BUN Creatinine Glucose Calcium Magnesium Total Bilirubin AST ALT Alkaline Phosphatase - VTE Documentation of Mechanical Device: Intermittent pneumatic compression device Consult Discharge Plan - Plan Referrals: Hugo Mercedes MD [Primary Care Provider] - 03/10/17 2:00 pm (Please follow up as schedule...)
[2017-03-02] MEDS: Insulin LISPRO 300 UNITS/3 ML VIAL SQ SCH ×3 (00:11→11:30)
[2017-03-02] MEDS: *HR* HYDROcodone/Acet 5/325 mg TABLET PO PRN ×2 (01:34→06:37)
[2017-03-02] MEDS: *HR* LORazepam 0.5 MG TABLET PO PRN (03:41)
[2017-03-02 03:51] LABS: Basophils # 0.1 K/mcL (0.0-0.2); Basophils % 0.8 %; Eosinophils # 0.2 K/mcL (0.0-0.6); Eosinophils % 2.1 %; Hematocrit 27.4 % (35.3-44.9); Immature Granulocytes % 0.3 % (0-4); Lymphocytes # 2.1 K/mcL (0.6-4.6); Lymphocytes % 27.2 %; Mean Corpuscular HGB Conc 32.8 g/dL (31.6-35.5); Mean Corpuscular Hemoglobin 32.8 pg (28.0-33.3); Mean Platelet Volume 10.2 fL (9.4-12.4); Monocytes % 13.6 %; Neutrophils # 4.3 K/mcL (1.6-8.9); Platelet Count 261 K/mcL (140-400); Red Blood Count 2.74 M/mcL (3.82-4.97); Red Cell Distribution Width 14.5 % (11.5-14.5)
[2017-03-02 04:04] LABS: Magnesium 1.9 mg/dL (1.6-2.6); Phosphorous 3.7 mg/dL (2.3-4.7)
[2017-03-02 04:07] LABS: Albumin 2.4 g/dL (3.5-5.0); Albumin/Globulin Ratio 0.7 (1.1-2.2); Bilirubin,Total 0.4 mg/dL (0.2-1.2); Calcium 8.3 mg/dL (8.6-10.8); Globulin 3.3 g/dL (2.4-3.5); Total Protein 5.7 g/dL (6.0-8.3)
[2017-03-02] MEDS: MetroNIDAZOLE 500 MG/100 ML 500 MG/100 ML BAG IVPB SCH (06:38)
[2017-03-02] MEDS ORDERED: hydrALAZINE 25 MG TABLET PO SCH ×3 (08:24→16:24)
--- NOTE | 2017-03-02 08:26 | Pulmonology Progress Note ---
<JackieShania M - Last Filed: 03/02/17 10:09> Date of Encounter: 03/02/17 Objective PUL Vital signs: Last Vital Signs Temp 98.5 F 03/02/17 08:07 Pulse 93 03/02/17 09:00 Resp 14 03/02/17 09:00 BP 146/67 03/02/17 08:00 Pulse Ox 99 03/02/17 09:00 Results - Laboratory Findings CBC and BMP: 03/02/17 03:18 03/02/17 03:18 PT/INR, D-dimer PT 10.6 Seconds (9.4-12.1) 02/28/17 04:48 Abnormal lab findings: Abnormal lab results RBC 2.74 M/mcL (3.82-4.97) L 03/02/17 03:18 Hgb 9.0 g/dL (11.5-15.4) L 03/02/17 03:18 Hct 27.4 % (35.3-44.9) L 03/02/17 03:18 BUN 23 mg/dL (7-20) H D 03/02/17 03:18 Creatinine 4.10 mg/dL (0.57-1.11) H 03/02/17 03:18 Est GFR ( Amer) 13 (> 60) L 03/02/17 03:18 Est GFR (Non-Af Amer) 11 (> 60) L 03/02/17 03:18 Glucose 282 mg/dL (70-99) H 03/02/17 03:18 POC Glucose 347 (58-89) H 03/02/17 07:43 Hemoglobin A1c 9.3 % (-5.6) H 02/28/17 04:48 Calcium 8.3 mg/dL (8.6-10.8) L 03/02/17 03:18 Alkaline Phosphatase 155 Units/L (38-126) H 03/02/17 03:18 Serum Total Protein 5.7 g/dL (6.0-8.3) L 03/02/17 03:18 Albumin 2.4 g/dL (3.5-5.0) L 03/02/17 03:18 Albumin/Globulin Ratio 0.7 (1.1-2.2) L 03/02/17 03:18 Triglycerides 180 mg/dL (< 150) H 02/28/17 04:48 LDL Cholesterol, Calc 107 mg/dL (0-99) H 02/28/17 04:48 VLDL Cholesterol, Calc 36 mg/dL (< 31) H 02/28/17 04:48 Stool Occult Blood Positive (Negative) A 02/27/17 12:40 Stl C. diff Tox A/B PCR See reflex test (Not detect) A 02/27/17 18:45 Stool EPEC (PCR) DETECTED (Not detect) A 02/27/17 18:45 - Microbiology Findings Microbiology Findings: Microbiology, Last 48 Hours 02/27/17 19:45 Blood Culture - Preliminary Peripheral Venipuncture No growth. 02/27/17 19:45 Blood Culture - Preliminary Peripheral Venipuncture No growth. - Clinical Findings Intake & Output: Intake & Output 03/01/17 03/02/17 03/02/17 23:59 07:59 15:59 Intake Total 100 / 100 100 / 100 Output Total 1600 / 1600 Balance -1500 / -1500 100 / 100 Weight 78 kg Consult Discharge Plan - Plan Referrals: Hugo Mercedes MD [Primary Care Provider] - 03/10/17 2:00 pm (Please follow up as schedule...) - Attending Attestation I examined this patient and my medical decision-making was reviewed with the Resident Physician. I agree with the documented findings, disposition and treatment plan as described except to the extent set forth below. Patient seen and examined. Labs, radiology, chart personally reviewed. Agree with resident's history and physical, assessment, plan with following comments: CATERING CHEF: Patient follows commands, Pulmonary: Acceptable oxygenation and ventilation Cardiovascular: stable GI: Nutrition per dietary and GI prophylaxis per routine. There is no evidence of active GI bleed due to GI follow-up. Heme: DVT prophylaxis per routine. H&H remained stable. Patient can be transferred to 2 A Renal; hemodialysis by metal cutter Endorcine: blood glucose is monitored area patient has diabetes and very sensitive and fluctuate. Patient to resume her insulin regimen at home Lines: all lines checked and no evidence of infections Skin: skin care to prevent pressure ulcers per nursing routine care <April Moreno - Last Filed: 03/02/17 16:35> Date of Encounter: 03/02/17 Time of Encounter: 08:26 Assessment and Plan (1) GI bleed Current Visit: Yes Status: Acute Pt had 2 bloody bowel movements in AM On PE: no peritoneal signs Hemoglobin in AM -9.0, 8.5 Pt hemodynamically stable upon transfer Timed H/H Qualifiers: GI bleed type/associated pathology: anorectal hemorrhage Qualified Code(s) : K62.5 - Hemorrhage of anus and rectum (2) ESRD (end stage renal disease) Current Visit: Yes Status: Chronic (3) CAD (coronary artery disease) Current Visit: Yes Status: Chronic Qualifiers: Coronary Disease-Associated Artery/Lesion type: [place] artery [place] vs. 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 First at approx 8 am per RN, approx. 100 ml. Pt states she feels "like she's getting better". She reports no nausea, no abdominal pain, no vomiting. States she would like to eat. Objective PUL Vital signs: Last Vital Signs Temp 98.5 F 03/02/17 08:07 Pulse 94 03/02/17 08:00 Resp 10 03/02/17 08:00 BP 163/76 03/02/17 00:47 Pulse Ox 99 03/02/17 08:00 General appearance: no acute distress Eyes: nonicteric ENT: oropharynx moist Neck: supple Effort: normal Auscultation: bilateral: clear (anterior lung thomas) Cardiovascular: regular rate and rhythm Gastrointestinal: soft, non-tender (with no rebound tenderness), non-distended Integumentary: normal Extremities: no edema non-focal exam, pupils equal and round mood appropriate, affect normal Results - Laboratory Findings CBC and BMP: 03/02/17 13:04 03/02/17 03:18 PT/INR, D-dimer PT 10.6 Seconds (9.4-12.1) 02/28/17 04:48 Abnormal lab findings: Abnormal lab results RBC 2.74 M/mcL (3.82-4.97) L 03/02/17 03:18 Hgb 9.0 g/dL (11.5-15.4) L 03/02/17 03:18 Hct 27.4 % (35.3-44.9) L 03/02/17 03:18 BUN 23 mg/dL (7-20) H D 03/02/17 03:18 Creatinine 4.10 mg/dL (0.57-1.11) H 03/02/17 03:18 Est GFR ( Amer) 13 (> 60) L 03/02/17 03:18 Est GFR (Non-Af Amer) 11 (> 60) L 03/02/17 03:18 Glucose 282 mg/dL (70-99) H 03/02/17 03:18 POC Glucose 347 (58-89) H 03/02/17 07:43 Hemoglobin A1c 9.3 % (-5.6) H 02/28/17 04:48 Calcium 8.3 mg/dL (8.6-10.8) L 03/02/17 03:18 Alkaline Phosphatase 155 Units/L (38-126) H 03/02/17 03:18 Serum Total Protein 5.7 g/dL (6.0-8.3) L 03/02/17 03:18 Albumin 2.4 g/dL (3.5-5.0) L 03/02/17 03:18 Albumin/Globulin Ratio 0.7 (1.1-2.2) L 03/02/17 03:18 Triglycerides 180 mg/dL (< 150) H 02/28/17 04:48 LDL Cholesterol, Calc 107 mg/dL (0-99) H 02/28/17 04:48 VLDL Cholesterol, Calc 36 mg/dL (< 31) H 02/28/17 04:48 Stool Occult Blood Positive (Negative) A 02/27/17 12:40 Stl C. diff Tox A/B PCR See reflex test (Not detect) A 02/27/17 18:45 Stool EPEC (PCR) DETECTED (Not detect) A 02/27/17 18:45 - Microbiology Findings Microbiology Findings: Microbiology, Last 48 Hours 02/27/17 19:45 Blood Culture - Preliminary Peripheral Venipuncture No growth. 02/27/17 19:45 Blood Culture - Preliminary Peripheral Venipuncture No growth. - Clinical Findings Intake & Output: Intake & Output 03/01/17 03/02/17 03/02/17 23:59 07:59 15:59 Intake Total 100 / 100 100 / 100 Output Total 1600 / 1600 Balance -1500 / -1500 100 / 100 Weight 78 kg - VTE Documentation of Mechanical Device: Intermittent pneumatic compression device
[2017-03-02] MEDS: Calcium Acetate 667 MG CAPSULE PO SCH (08:41)
[2017-03-02] MEDS: Pantoprazole 40 MG VIAL IVP SCH (08:41)
[2017-03-02] MEDS: Renal Vitamin 1 MG CAPSULE PO SCH (08:42)
[2017-03-02] MEDS: Gabapentin 300 MG CAPSULE PO SCH (08:42)
[2017-03-02] MEDS ORDERED: Isosorbide MONOnitrate (24 HR) 60 MG TAB.ER.24H PO SCH (09:00)
[2017-03-02] MEDS ORDERED: (Febuxostat [Uloric] 80 MG) PO SCH (09:00)
[2017-03-02] MEDS ORDERED: amLODIPine 5 MG TABLET PO SCH (09:00)
[2017-03-02] MEDS ORDERED: Metoprolol XL (24 HR) Succ 50 MG TAB.ER.24H PO SCH (09:00)
[2017-03-02] MEDS: Insulin DETEMIR 100 UNIT/ML X5UNITS SQ SCH (10:15)
--- NOTE | 2017-03-02 10:45 | General Surgery Progress Note ---
Date of Encounter: 03/02/17 Time of Encounter: 09:50 - Assessment and Plan (1) GI bleed Current Visit: Yes Status: Acute The patient continues to have gastrointestinal bleeding. The upper endoscopy, colonoscopy, bleeding scan failed to demonstrate a source of the bleeding. At this point I think that further hemorrhage is a greater risk to the patient then acute cardiac stent thrombosis. I would with hold anticoagulation and antiplatelet therapy at this point. This does place her at risk for myocardial event however I feel the risk from hemorrhage is higher. She may require capsule endoscopy in the near future to try and identify small bowel source of the bleeding Hugo Bernal MD FACS Qualifiers: GI bleed type/associated pathology: anorectal hemorrhage Qualified Code(s) : K62.5 - Hemorrhage of anus and rectum Subjective Narrative: The patient received dialysis yesterday. She did have a bloody bowel movement this morning. The patient is had upper endoscopy as well as colonoscopy. This failed to demonstrate a source for the bleeding. She had a bleeding scan that was also negative. The bloody bowel movement today could be residual or new hemorrhage. If she has high-volume rectal bleeding a splanchnic arteriogram is recommended with possible therapy of bleeding source. At this point there is no surgical identifiable site of the hemorrhage. As long as she continues to clinically bleed she should be watched very carefully with serial hemoglobin and hematocrit and her antiplatelet therapy and anticoagulation should be discontinued. This places her at risk for acute cardiac stent thrombosis. In my opinion her risk of hemorrhage is higher than stent thrombosis. Objective Vital Signs - Last 8 Hours Temp Pulse Resp BP Pulse Ox 03/02/17 10:00 86 10 107/57 100 03/02/17 09:00 93 14 99 03/02/17 08:53 94 03/02/17 08:07 98.5 F 03/02/17 08:00 94 10 146/67 99 03/02/17 07:00 90 12 151/67 99 03/02/17 06:00 84 14 100 03/02/17 05:04 97.9 F 03/02/17 05:00 82 16 98 Intake and Output 03/01/17 03/02/17 03/02/17 23:59 07:59 15:59 Intake Total 100 / 100 100 / 100 360 / 360 Output Total 1600 / 1600 Balance -1500 / -1500 100 / 100 360 / 360 Intake: IV Fluids 100 / 100 Flagyl Premix 500 MG/100 ML 500 100 / 100 mg In 100 ml @ 100 mls/hr IVPB Q8H [facility] Rx#:[id number] Oral 100 / 100 360 / 360 Output: Urine 0 / 0 Total Dialysis (HD) Output 1600 / 1600 Other: Meal Breakfast Percent of Meal Consumed 100% Stool Size Moderate Small Stool Consistency liquid liquid Stool Color Bright Red Blood Bright Red Blood # Bowel Movements 0 1 Weight 78 kg Blood Glucose* 137 234 347 Hemodialysis Net Fluid Removed 1000 (mL) Patient Weight 03/02/17 23:59 Weight 78 kg - General physical appearance well developed, well nourished, chronically ill - Respiratory normal expansion, normal respiratory effort, clear to percussion, clear to auscultation - Cardiovascular Cardiovascular exam: Present: RRR, no murmurs/rubs/gallops - Abdomen Abdomen: Present: bowel sounds present, soft, non tender - Neurologic normal coordination, normal sensation - Psychiatric oriented to time, oriented to person, oriented to place, speech is normal, memory intact - Labs 03/02/17 03:18 03/02/17 03:18 Diabetes panel 03/02/17 Range/Units 03:18 Sodium 137 (136-145) mEq/L Potassium 4.0 D (3.5-4.5) mEq/L Chloride 101 (98-109) mEq/L Carbon Dioxide 26 (19-29) mEq/L BUN 23 H D (7-20) mg/dL Creatinine 4.10 H (0.57-1.11) mg/dL Glucose 282 H (70-99) mg/dL Calcium 8.3 L (8.6-10.8) mg/dL AST 17 (5-34) Units/L ALT 14 (0-55) Units/L Alkaline Phosphatase 155 H (38-126) Units/L Albumin 2.4 L (3.5-5.0) g/dL Calcium panel 03/02/17 03/02/17 Range/Units 03:18 03:18 Calcium 8.3 L (8.6-10.8) mg/dL Phosphorus 3.7 (2.3-4.7) mg/dL Albumin 2.4 L (3.5-5.0) g/dL Pituitary panel 03/02/17 Range/Units 03:18 Sodium 137 (136-145) mEq/L Potassium 4.0 D (3.5-4.5) mEq/L Chloride 101 (98-109) mEq/L Carbon Dioxide 26 (19-29) mEq/L BUN 23 H D (7-20) mg/dL Creatinine 4.10 H (0.57-1.11) mg/dL Glucose 282 H (70-99) mg/dL Calcium 8.3 L (8.6-10.8) mg/dL Adrenal panel 03/02/17 Range/Units 03:18 Sodium 137 (136-145) mEq/L Potassium 4.0 D (3.5-4.5) mEq/L Chloride 101 (98-109) mEq/L Carbon Dioxide 26 (19-29) mEq/L BUN 23 H D (7-20) mg/dL Creatinine 4.10 H (0.57-1.11) mg/dL Glucose 282 H (70-99) mg/dL Calcium 8.3 L (8.6-10.8) mg/dL Total Bilirubin 0.4 (0.2-1.2) mg/dL AST 17 (5-34) Units/L ALT 14 (0-55) Units/L Alkaline Phosphatase 155 H (38-126) Units/L Albumin 2.4 L (3.5-5.0) g/dL - Imaging Additional Studies: I personally reviewed the bleeding scan. This is a negative study. - VTE Documentation of Mechanical Device: Intermittent pneumatic compression device Consult Discharge Plan - Plan Referrals: Hugo Mercedes MD [Primary Care Provider] - 03/10/17 2:00 pm (Please follow up as schedule...)
[2017-03-02 10:54] LABS: Hemoglobin 8.5 g/dL (11.5-15.4)
--- NOTE | 2017-03-02 11:36 | Nephrology Progress Note ---
Date of Encounter: 03/02/17 Time of Encounter: 11:34 - Assessment and Plan (1) GI bleed Current Visit: Yes Status: Acute Patient with recurrent abdominal pain. She now has a GI bleed and on Plavix. Colonoscopy with blood in colon without source of bleeding. Surgery and GI are following. Will need close follow-up as she is still having hematochezia. Surgery recommends splanchnic arteriogram if bleeding continues. Qualifiers: GI bleed type/associated pathology: anorectal hemorrhage Qualified Code(s) : K62.5 - Hemorrhage of anus and rectum (2) CAD (coronary artery disease) Current Visit: Yes Status: Chronic S/P PTCA with stent placement. Cardiology evaluated. On plavix and unable to discontinue for an extended period of time secondary to multiple stent placement. No chest pain. Per primary team and cardiolog. Qualifiers: Coronary Disease-Associated Artery/Lesion type: [place] artery [place] vs. transplanted heart: [place] heart Associated angina: angina presence unspecified Qualified Code(s): I25.10 - Atherosclerotic heart disease of [place] coronary artery without angina pectoris (3) Diabetes Current Visit: Yes Status: Chronic Per primary team. Qualifiers: Diabetes mellitus type: type 2 Diabetes mellitus complication status: with circulatory complication Diabetes mellitus complication detail: with other circulatory complications Diabetes mellitus termite inspector insulin use: with assisted use Qualified Code(s): E11.59 - Type 2 diabetes mellitus with other circulatory complications; Z79.4 - [facility] (current) use of insulin (4) ESRD (end stage renal disease) on dialysis Current Visit: Yes Status: Chronic HD MWF and as needed. Renal diet. Adjust medication for renal function. (5) Anemia in ESRD (end-stage renal disease) Current Visit: No Status: Chronic Transfuse as needed. Acute anemia secondary to GI bleed superimposed on anemia of chronic disease. . Since patient cannot come off antiplatelet therapy I would recommend keeping hemoglobin greater than 10.0. Source seems to be small bowel. Patient needs stable venous access. Spoke with covering team. Patient with decreasing blood pressure and hemoglobin that is concerning with her ongoing hematochezia. Will order 1 unit prbc and post transfusion CBC for symptomatic anemia. 31 minutes spent in the care of this critically ill patient. (6) HTN (hypertension) Current Visit: Yes Status: Chronic Patient with history of hypertension with relative hypotension this am. I recommend holding antihypertensive medication for sbp less than 120 while she is actively bleeding. With her underlying coronary disease would keep the beta dick as long as it is safe. Qualifiers: Hypertension type: essential hypertension Qualified Code(s): I10 - Essential (primary) hypertension Subjective Principal diagnosis: CAD and GI bleed Interval history: Ms. Moffett is a 71 yo woman with recent PTCA with stent placement who presented with abdominal pain and hematochezia. She is feeling fatigued this am, but denies chest pain. She does have mild dyspnea. Objective - Vital Signs Vital signs: Vital Signs Temp Pulse Resp BP Pulse Ox 03/02/17 11:19 98.2 F 83 16 100/58 95 03/02/17 10:00 86 10 107/57 100 03/02/17 09:00 93 14 99 03/02/17 08:53 94 03/02/17 08:07 98.5 F 03/02/17 08:00 94 10 146/67 99 03/02/17 07:00 90 12 151/67 99 03/02/17 06:00 84 14 100 03/02/17 05:04 97.9 F 03/02/17 05:00 82 16 98 03/02/17 02:00 82 17 99 03/02/17 00:47 11 163/76 100 03/02/17 00:33 98.3 F 03/02/17 00:00 82 12 148/68 100 03/01/17 23:00 84 14 150/60 100 03/01/17 22:00 86 14 145/64 100 03/01/17 21:03 98.3 F 12 99 03/01/17 21:00 85 12 144/66 100 03/01/17 20:00 80 12 147/67 98 03/01/17 19:00 81 14 135/63 98 03/01/17 18:28 88 13 127/63 99 03/01/17 17:15 98.3 F 18 150/71 03/01/17 17:00 79 12 132/74 98 03/01/17 16:45 138/79 03/01/17 16:30 125/70 03/01/17 16:15 127/76 03/01/17 16:00 98.8 F 81 13 117/68 98 03/01/17 15:45 130/73 03/01/17 15:30 134/72 03/01/17 15:15 129/89 03/01/17 15:00 139/87 03/01/17 14:45 124/83 03/01/17 14:30 151/72 03/01/17 14:15 166/74 03/01/17 14:00 98.3 F 18 154/71 Intake and Output 03/01/17 03/02/17 03/02/17 23:59 07:59 15:59 Intake Total 100 / 100 100 / 100 360 / 360 Output Total 1600 / 1600 0 / 0 Balance -1500 / -1500 100 / 100 360 / 360 Intake: IV Fluids 100 / 100 Flagyl Premix 500 MG/100 ML 500 100 / 100 mg In 100 ml @ 100 mls/hr IVPB Q8H [facility] Rx#:[id number] Oral 100 / 100 360 / 360 Output: Urine 0 / 0 0 / 0 Total Dialysis (HD) Output 1600 / 1600 Other: Meal Breakfast Percent of Meal Consumed 100% Stool Size Moderate Small Stool Consistency liquid liquid Stool Color Bright Red Blood Bright Red Blood # Bowel Movements 0 1 Weight 78 kg Blood Glucose* 137 234 350 Hemodialysis Net Fluid Removed 1000 (mL) Patient Weight 03/02/17 23:59 Weight 78 kg - General Appearance General appearance: Present: well-developed, well-nourished EENT: Present: ATNC Neck: Present: supple Respiratory: Present: course breath sounds Cardiology: Present: edema (trace edema bilateral lower extremities), regular rate Dialysis Vascular Access: Arteriovenous Fistula Integumentary: Present: warm and dry Neurologic: Present: alert and oriented x3 Musculoskeletal: Present: no cyanosis Psychiatric: Present: mood/affect appropriate - Lab 03/02/17 10:42 03/02/17 03:18 Most recent lab results Calcium 8.3 mg/dL (8.6-10.8) L 03/02/17 03:18 Phosphorus 3.7 mg/dL (2.3-4.7) 03/02/17 03:18 Magnesium 1.9 mg/dL (1.6-2.6) 03/02/17 03:18 - VTE Documentation of Mechanical Device: Intermittent pneumatic compression device Consult Discharge Plan - Plan Referrals: Hugo Mercedes MD [Primary Care Provider] - 03/10/17 2:00 pm (Please follow up as schedule...)
--- NOTE | 2017-03-02 12:24 | Cardiology Progress Note ---
Date of Encounter: 03/02/17 Time of Encounter: 12:21 Assessment and Plan (1) CAD (coronary artery disease) Current Visit: Yes Status: Chronic S/p PTCA and BRYNN to pLAD, dCX, and mRCA on 02/13/17. DAPT is recommended uninterrupted for one year. Patient here with GI bleed. Continues to have bloody diarrhea but hgb stable. Discussed with Dr Tomas, hold ASA now but only hold plavix if life threatening bleed due to multiple vessel PCI less than a month ago. High risk for stent thrombosis and cardiac events/mortality. Consider transfer to tertiary center to evaluate source of bleeding if needed. Continue plavix. Ok to decrease imdur due to concern for hypotension. I will also d/c norvasc. Continue statin and bb as tolerated. C/o reproducible chest pain the is muscle skeletal. Qualifiers: Coronary Disease-Associated Artery/Lesion type: [place] artery [place] vs. transplanted heart: [place] heart Associated angina: angina presence unspecified Qualified Code(s): I25.10 - Atherosclerotic heart disease of [place] coronary artery without angina pectoris (2) Anemia Current Visit: No Status: Chronic Surgery / IM following. Qualifiers: Anemia type: unspecified type Qualified Code(s): D64.9 - Anemia, unspecified (3) GI bleed Current Visit: Yes Status: Acute Qualifiers: GI bleed type/associated pathology: anorectal hemorrhage Qualified Code(s) : K62.5 - Hemorrhage of anus and rectum Discussion w patient/family: The assessment and plan as outlined above was discussed with the patient and/or family members who expressed understanding and agreement. All questions were answered. Thank you for involving us in the care of your patient. Please call with any questions. Plan and assessment discussed with Dr. Tomas. Changes will be made to plan as needed. Please call with questions. Subjective Principal diagnosis: CAD and GI bleed Interval history: Patient continues to have bloddy diarrjea. She continues on plavix. C/o chest wall pain that is reproducible. Objective Vital Signs, Last 4 Hours Temp Pulse Resp BP Pulse Ox 03/02/17 11:19 98.2 F 83 16 100/58 95 03/02/17 10:00 86 10 107/57 100 03/02/17 09:00 93 14 99 03/02/17 08:53 94 General: Conversant, No Apparent Distress HEENT: Atraumatic, Normocephaly, Mucus Membranes Moist Neck: No JVD, Normal carotid pulses Cardiac: Reg Rate and Rhythm, Normal S1 and S2, No Murmur Lungs: Normal Breath Sounds, No Wheeze, Rales, Rhonchi Neuro: Alert and responsive, No focal deficits noted Abdomen: Soft, Non-Tender Skin: No rashes noted on visualized skin Musculoskeletal: Other (reproducible chest wall and abdominal pain.) Extremities: No Clubbing, No Cyanosis, No Edema, Normal Pulses Results 03/02/17 10:42 03/02/17 03:18 Lab Results 03/01/17 03/01/17 03/01/17 14:02 17:00 20:10 WBC Hgb 9.4 L 9.5 L 9.4 L Hct 28.9 L 28.1 L 27.8 L Plt Count Sodium Potassium Chloride Carbon Dioxide BUN Creatinine Glucose Calcium Magnesium Total Bilirubin AST ALT Alkaline Phosphatase 03/02/17 03/02/17 03/02/17 03:18 03:18 03:18 WBC 7.6 Hgb 9.0 L Hct 27.4 L Plt Count 261 Sodium 137 Potassium 4.0 D Chloride 101 Carbon Dioxide 26 BUN 23 H D Creatinine 4.10 H Glucose 282 H Calcium 8.3 L Magnesium 1.9 Total Bilirubin 0.4 AST 17 ALT 14 Alkaline Phosphatase 155 H 03/02/17 10:42 WBC Hgb 8.5 L Hct 26.0 L Plt Count Sodium Potassium Chloride Carbon Dioxide BUN Creatinine Glucose Calcium Magnesium Total Bilirubin AST ALT Alkaline Phosphatase - Imaging and Cardiology Echo: report reviewed Cardiac cath: report reviewed - EKG Interpretation EKG results cardiology: personally reviewed - VTE Documentation of Mechanical Device: Intermittent pneumatic compression device Consult Discharge Plan - Plan Referrals: Hugo Mercedes MD [Primary Care Provider] - 03/10/17 2:00 pm (Please follow up as schedule...)
[2017-03-02] MEDS ORDERED: *HR* HYDROcodone/Acet 5/325 mg TABLET PO PRN (12:28)
[2017-03-02] MEDS ORDERED: Naloxone 0.4 MG/ML INJ IVP PRN (12:28)
[2017-03-02] MEDS ORDERED: D5% in Water 1,000 ML IVC PRN (12:28)
[2017-03-02] MEDS ORDERED: Acetaminophen 325 MG TABLET PO PRN (12:28)
[2017-03-02] MEDS ORDERED: Ondansetron 4 MG/2 ML VIAL IVP PRN (12:28)
[2017-03-02] MEDS ORDERED: 0.9 % Sodium Chloride 250 ML IVC PRN ×2 (12:28)
[2017-03-02] MEDS ORDERED: *HR* LORazepam 0.5 MG TABLET PO PRN (12:28)
[2017-03-02] MEDS ORDERED: Dextrose Gel 15 GM PO PRN ×2 (12:28)
[2017-03-02] MEDS ORDERED: 0.9 % Sodium Chloride 1,000 ML PRIME SCH (12:28)
[2017-03-02 13:12] LABS: Hematocrit 24.2 % (35.3-44.9); Hemoglobin 8.1 g/dL (11.5-15.4)
[2017-03-02] MEDS ORDERED: MetroNIDAZOLE 500 MG/100 ML 500 MG/100 ML BAG IVPB SCH (15:00)
[2017-03-02] MEDS: *HR* Dextrose 50 % in Water (Syg) 50 ML SYRINGE IVP PRN ×3 (15:07→17:23)
[2017-03-02 16:27] VITALS: BP 121/71
[2017-03-02] MEDS ORDERED: Insulin LISPRO 300 UNITS/3 ML VIAL SQ SCH ×2 (16:30→21:00)
--- NOTE | 2017-03-02 16:40 | Discharge Summary ---
Date of Encounter: 03/02/17 Time of Encounter: 16:37 - Discharge Diagnosis (1) Hematochezia Priority: Primary Status: Acute (2) Enteropathogenic Escherichia coli infection Priority: Primary Status: Acute (3) CAD (coronary artery disease) Priority: Secondary Status: Chronic Qualifiers: Coronary Disease-Associated Artery/Lesion type: [place] artery [place] vs. transplanted heart: [place] heart Associated angina: without angina Qualified Code(s): I25.10 - Atherosclerotic heart disease of [place] coronary artery without angina pectoris (4) Anemia Priority: Secondary Status: Chronic Qualifiers: Other causes of anemia: acute posthemorrhagic Qualified Code(s): D62 - Acute posthemorrhagic anemia (5) Hypothyroid Priority: Secondary Status: Chronic Qualifiers: Hypothyroidism type: acquired Qualified Code(s): E03.9 - Hypothyroidism, unspecified (6) ESRD (end stage renal disease) Priority: Secondary Status: Chronic (7) Diabetes Priority: Secondary Status: Chronic Qualifiers: Diabetes mellitus type: type 2 Diabetes mellitus complication status: with circulatory complication Diabetes mellitus complication detail: with other circulatory complications 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 insulin use: with detention use Qualified Code(s): E11.59 - Type 2 diabetes mellitus with other circulatory complications; Z79.4 - longterm (current) use of insulin (8) Atrial fibrillation Priority: Secondary Status: Chronic Qualifiers: Atrial fibrillation type: chronic Qualified Code(s): I48.2 - Chronic atrial fibrillation - Discharge Medications Prescriptions: MetroNIDAZOLE 500 MG/100 ML [Flagyl Premix 500 MG/100 ML] 500 mg IVPB Q8H #1 bag Home Medications: Levothyroxine Sodium [Synthroid] 200 mcg PO DAILY 02/08/16 [History] amLODIPine [Norvasc] 10 mg PO DAILY 02/14/16 [History] Atorvastatin [Lipitor] 40 mg PO DAILY 05/26/16 [History] Calcium Acetate [Phos-LO] 1,334 mg PO TIDWM 05/26/16 [History] Duloxetine HCl [Cymbalta] 30 mg PO DAILY 05/26/16 [History] Ergocalciferol (VITAMIN D2) [Vitamin D2] 50,000 unit PO WE 05/26/16 [History] Ezetimibe [Zetia] 10 mg PO DAILY 05/26/16 [History] Febuxostat [Uloric] 80 mg PO DAILY 05/26/16 [History] Gabapentin [Neurontin] 300 mg PO DAILY 05/26/16 [History] Hydralazine HCl 50 mg PO Q8H 05/26/16 [History] LORazepam [Ativan] 0.5 - 1 mg PO BID PRN 05/26/16 [History] Metoprolol XL (24 HR) Succ [Toprol Xl] 50 mg PO DAILY 05/26/16 [History] Renal Vitamin [Renal Caps Softgel] 1 mg PO DAILY 05/26/16 [History] Allopurinol [Zyloprim 300 MG] 300 mg PO DAILY 05/27/16 [History] Cinacalcet [Sensipar] 30 mg PO DAILY 01/06/17 [History] Oxycodone HCl 10 mg PO TID PRN 01/06/17 [History] Insulin Glargine [Lantus] 10 unit SQ DAILY 02/11/17 [History] Clopidogrel [Plavix] 75 mg PO DAILY 02/27/17 [History] HYDROcodone/Acet 5/325 mg [[place] 5-325 mg] 1 tab PO Q4HR PRN tablet 03/02/17 [ Rx] Isosorbide MONOnitrate (24 HR) [Imdur] 60 mg PO DAILY tab.er.24h 03/02/17 [Rx] MetroNIDAZOLE 500 MG/100 ML [Flagyl Premix 500 MG/100 ML] 500 mg IVPB Q8H #1 bag 03/02/17 [Rx] Naloxone [Narcan] 0.4 mg IVP Q2MIN PRN inj 03/02/17 [Rx] Ondansetron [Zofran] 4 mg IVP Q6HR PRN vial 03/02/17 [Rx] Pantoprazole [Protonix] 40 mg IVP BID vial 03/02/17 [Rx] Allergies/Adverse Reactions: 3 Allergy/AdvReac Type Severity Reaction Status Date / Time IVP DYE Allergy See Uncoded 02/27/17 11:53 Comments ivp dye Allergy See Uncoded 02/27/17 11:53 Comments Procedures/tests Complete & Pending: Procedures Performed prior 72 hours Category Date Time Status NM GI bleeding [NM] Stat Exams 03/01/17 09:28 Completed Date of admission: 02/27/17 18:24 Primary care physician: Hugo Mercedes MD Consults: 02/28/17 06:00 Consult to Dialysis [CONS] ONCE 03/01/17 06:00 Consult to Dialysis [CONS] ONCE 03/01/17 11:00 Consult to Pulmonology [CONS] Routine Consulting Provider: [facility] Macie Mar Reason for Consult: Respiratory management Time Notified: 11:00 Call Completed: Yes 03/01/17 13:45 Consult to Dialysis [CONS] ONCE Discharging clinician: Ayaan Rosen Anticipated date of discharge: 03/02/17 - Patient Status Disposition: Transfer Short-Term Hosp Condition: Fair Functional capacity at discharge: independent ambulation Overall status at discharge: patient is not back to baseline - Discharge Instructions Follow Up With: Hugo Mercedes MD [Primary Care Provider] - 03/10/17 2:00 pm (Please follow up as schedule...) - Diet and Activity Activity: other Diet: other (Renal) Hospital course: Ms. Moffett is a 71 year old female with multiple medical issues including ESRD on dialysis presented to ED on 02/27 due to rectal bleeding. She had noted crampy abdominal pain for about the prior three days but was worse that day so she came into the hospital. She recently was hospitalized in early February and had 3 cardiac stents and has been on ASA and Plavix. She was admitted for further evaluation and treatment. Ms Moffett was admitted to [facility]. She had serial labs ordered to monitor her H /H. She also had recently been on abx for pneumonia therefore a GI panel was ordered which was positive for enteropathogenic E coli and ? c diff (was started on metronidazole). She was evaluated by GI service and had EGD on which showed nonbleeding esophagitis and gastritis. On 03/01 she had colonoscopy which showed red blood in colon (not cecum) but no active bleeding site. She was sent to ICU and bleeding scan done which was negative. She remained hemodynamically stable and H/H was stable but lower than her baseline. On 03/02 she was transferred from ICU. She had had 2 more episodes of bright red rectal bleeding and H/H was lower. Because of her recent stents it was felt that the Plavix could not be stopped (though ASA was held). In light of recurrent bleeding surgery felt her Plavix needed to be stopped. Overall due to her potential for recurrent bleeding as well as coronary event without the Plavix complicated by ESRD on dialysis and need for close fluid management it was felt she would benefit from transfer to tertiary care facility. She agreed and will be transferred to [place]. She has not received any blood at this point. - Time Spent with Patient Total time spent providing and/or coordinating discharge services: 42min - Constitutional Vitals: Temp Pulse Resp BP Pulse Ox 98.3 F 70 18 121/71 100 03/02/17 12:39 03/02/17 16:21 03/02/17 16:21 03/02/17 16:21 03/02/17 16:21 General appearance: Present: cooperative, mild distress, A&O X 3, pleasant, answers questions appropriately - Head Head exam: Present: normocephalic - Eye Eye exam: Present: EOMI, conjuntiva pink - ENT ENT exam: Present: mucous membranes moist - Respiratory Respiratory exam: Present: CTAB. Absent: rhonchi, wheezes - Cardiovascular Cardiovascular exam: Absent: tachycardia - GI/Abdominal GI/Abdominal exam: Present: soft. Absent: tenderness - Extremities Exam Extremities exam: Present: warm. Absent: tenderness - Neurological Exam Neurological exam: Present: alert, oriented X3 - VTE Documentation of Mechanical Device: Intermittent pneumatic compression device
[2017-03-02] MEDS ORDERED: Calcium Acetate 667 MG CAPSULE PO SCH (17:00)
[2017-03-02] MEDS ORDERED: Pantoprazole 40 MG VIAL IVP SCH (21:00)
[2017-03-03] MEDS ORDERED: Isosorbide MONOnitrate (24 HR) 60 MG TAB.ER.24H PO SCH ×2 (09:00)
[2017-03-03] MEDS ORDERED: NON-FORMULARY MEDICATION 1 EACH EACH (Febuxostat [Uloric] 80 MG) PO SCH (09:00)
[2017-03-03] MEDS ORDERED: (Febuxostat [Uloric] 80 MG) PO SCH (09:00)
[2017-03-03] MEDS ORDERED: Renal Vitamin 1 MG CAPSULE PO SCH (09:00)
[2017-03-03] MEDS ORDERED: amLODIPine 5 MG TABLET PO SCH ×2 (09:00)
[2017-03-03] MEDS ORDERED: Metoprolol XL (24 HR) Succ 50 MG TAB.ER.24H PO SCH (09:00)
[2017-03-03] MEDS ORDERED: Gabapentin 300 MG CAPSULE PO SCH (09:00)
== END 2017-03-02 18:10 | disposition short-term general hospital (02) | DRG 371 ==
LOC: EMEROO 11:49 → 2ANU 11:49 → ICNU 03-01 12:17 → 2ANU 03-02 11:16 → 2NNU 03-02 12:27
PROVIDERS: ADMIT Hospitalist; ATTEND Hospitalist

== ENCOUNTER 2017-03-26 08:20 | Inpatient (IN) ==
[2017-03-26] MEDS ORDERED: *HR* HYDROmorphone (PF) 1 MG/ML SYRINGE IVP ONE ×2 (08:30→10:12)
--- NOTE | 2017-03-26 08:48 | Emergency Department Note ---
Disposition Clinical Impression: Hypoglycemia GI bleed Qualifiers: GI bleed type/associated pathology: unspecified gastrointestinal hemorrhage type Qualified Code(s): K92.2 - Gastrointestinal hemorrhage, unspecified Pancreatitis Qualifiers: Chronicity: acute Pancreatitis type: unspecified pancreatitis type Acute pancreatitis complication: unspecified Qualified Code(s): K85.90 - Acute pancreatitis without necrosis or infection, unspecified Anemia Qualifiers: Anemia type: unspecified type Qualified Code(s): D64.9 - Anemia, unspecified Chronic kidney disease (CKD) Qualifiers: Chronic kidney disease stage: on chronic dialysis Qualified Code(s): N18.6 - End stage renal disease; Z99.2 - Dependence on renal dialysis; Z99.2 - Dependence on renal dialysis; Z99.2 - Dependence on renal dialysis; Z99.2 - Dependence on renal dialysis Disposition: Admitted As Inpatient Condition: Serious Referrals: Hugo Mercedes MD [Primary Care Provider] - Forms: ED Satisfaction Letter Time of Disposition: 09:34 GI Bleed HPI - General Chief complaint: ED Altered Mental Status Stated complaint: low glucose Time Seen by Provider: 03/26/17 08:22 Source: patient, EMS Mode of arrival: EMS Limitations: no limitations Nursing Notes Reviewed: Yes Vital Signs Reviewed: Yes - History of Present Illness HPI Narrative: Patient presents from home by EMS. EMS treated her for a blood sugar of 29 with one half amp of D50. The patient complains of bright red blood from her rectum independent of stooling that started today. She also notes left lower quadrant abdominal pain. States she has underwent a colonoscopy in our facility previously. Takes Plavix. Pt Subjective Complaint: gross hematochezia Onset (ago): hour(s) Consistency: intermittent Improves with: nothing Worsens with: nothing Context: history of GI bleed Associated symptoms: Reports: abdominal pain, other (Hypoglycemia) - Related Data Home Medications Medication Instructions Recorded Confirmed Levothyroxine Sodium [Synthroid] 200 mcg PO DAILY 02/08/16 02/27/17 amLODIPine [Norvasc] 10 mg PO DAILY 02/14/16 02/27/17 Atorvastatin [Lipitor] 40 mg PO DAILY 05/26/16 02/27/17 Calcium Acetate [Phos-LO] 1,334 mg PO TIDWM 05/26/16 02/27/17 Duloxetine HCl [Cymbalta] 30 mg PO DAILY 05/26/16 02/27/17 Ergocalciferol (VITAMIN D2) 50,000 unit PO WE 05/26/16 02/27/17 [Vitamin D2] Ezetimibe [Zetia] 10 mg PO DAILY 05/26/16 02/27/17 Febuxostat [Uloric] 80 mg PO DAILY 05/26/16 02/27/17 Gabapentin [Neurontin] 300 mg PO DAILY 05/26/16 02/27/17 Hydralazine HCl 50 mg PO Q8H 05/26/16 02/27/17 LORazepam [Ativan] 0.5 - 1 mg PO BID PRN 05/26/16 02/27/17 Metoprolol XL (24 HR) Succ [Toprol 50 mg PO DAILY 05/26/16 02/27/17 Xl] Renal Vitamin [Renal Caps Softgel] 1 mg PO DAILY 05/26/16 02/27/17 Allopurinol [Zyloprim 300 MG] 300 mg PO DAILY 05/27/16 02/27/17 Cinacalcet [Sensipar] 30 mg PO DAILY 01/06/17 02/27/17 Oxycodone HCl 10 mg PO TID PRN 01/06/17 02/27/17 Insulin Glargine [Lantus] 10 unit SQ DAILY 02/11/17 02/27/17 Clopidogrel [Plavix] 75 mg PO DAILY 02/27/17 02/27/17 Previous Rx's Medication Instructions Recorded HYDROcodone/Acet 5/325 mg [[place] 1 tab PO Q4HR PRN tablet 03/02/17 5-325 mg] Isosorbide MONOnitrate (24 HR) 60 mg PO DAILY tab.er.24h 03/02/17 [Imdur] MetroNIDAZOLE 500 MG/100 ML 500 mg IVPB Q8H #1 bag 03/02/17 [Flagyl Premix 500 MG/100 ML] Naloxone [Narcan] 0.4 mg IVP Q2MIN PRN inj 03/02/17 Ondansetron [Zofran] 4 mg IVP Q6HR PRN vial 03/02/17 Pantoprazole [Protonix] 40 mg IVP BID vial 03/02/17 Allergies Allergy/AdvReac Type Severity Reaction Status Date / Time IVP DYE Allergy See Uncoded 02/27/17 11:53 Comments ivp dye Allergy See Uncoded 02/27/17 11:53 Comments All systems ED: reviewed and negative except as stated. Constitutional: Reports: as per HPI Eyes: Reports: as per HPI ENT ED: Reports: as per HPI Cardiovascular: Reports: as per HPI Respiratory: Reports: as per HPI Gastrointestinal: Reports: abdominal pain, hematochezia Genitourinary: Reports: as per HPI Musculoskeletal: Reports: as per HPI Integumentary: Reports: as per HPI Neurological: Reports: other (Altered mental status) Psychiatric: Reports: as per HPI Endocrine: Reports: other (Hypoglycemia) Hematological/Lymphatic: Reports: as per HPI Allergic/Immunologic: Reports: as per HPI Past Medical History - Past Medical History Source: patient Medical history: Reports: coronary artery disease, diabetes, dialysis, hyperlipidemia, hypertension, renal disease, thyroid disease Surgical history: Reports: hysterectomy (Partial), orthopedic, other (Back surgery), other, vascular surgery Psychiatric history: Reports: anxiety, depression - Social History Smoking Status: Never smoker Smokeless Tobacco Status: No Alcohol use: Reports: none Drug use: Reports: none Physical Exam - General Limitations: no limitations General appearance: alert, in no apparent distress - Head Head exam: atraumatic - Eye Eye exam: Present: normal appearance, PERRL - ENT ENT exam: normal exam - Neck Neck exam: Present: normal inspection - Chest Chest inspection: Present: normal inspection, symmetric chest wall rise - Respiratory Respiratory exam: Present: normal lung sounds bilaterally - Cardiovascular Cardiovascular exam: Present: normal rhythm, bradycardia, systolic murmur - Abdominal Exam Abdominal exam: Present: soft, Non-Tender - Rectal Exam Rectal exam: Present: other (Blood at rectumgross blood at rectum) - Extremities Exam Extremities exam: Present: other (LUE AV fistula) - Neurological Exam Neurological exam: Present: alert, oriented X3, CN II-XII intact - Psychiatric Psychiatric exam: Present: normal affect, normal mood - Skin Skin exam: Present: warm, dry, intact Course Course Narrative: She presents with a GI bleed. We will check labs as well as a CT scan of her abdomen and pelvis. She will be reassessed Vital Signs Temperature 97.5 F L 03/26/17 08:22 Pulse Rate 60 03/26/17 08:22 Respiratory Rate 16 03/26/17 08:22 Blood Pressure 140/68 03/26/17 08:22 O2 Sat by Pulse Oximetry 97 03/26/17 08:22 Temperature 97.5 F L 03/26/17 08:22 Pulse Rate 48 03/26/17 09:26 Respiratory Rate 12 03/26/17 09:26 Blood Pressure 130/57 03/26/17 09:26 O2 Sat by Pulse Oximetry 98 03/26/17 09:26 Oxygen Delivery Oxygen Delivery Nasal Cannula GI Bleed - Medical Records Medical records reviewed: Yes I reviewed the patient's medical records. Hb stable - Lab Data Lab results reviewed: Yes I reviewed the patient's lab results. Result diagrams: 03/26/17 08:56 03/26/17 08:56 Lab Results 03/26/17 03/26/17 03/26/17 Range/Units 08:23 08:55 08:56 WBC 9.6 (4.3-11.1) K/mcL RBC 2.93 L (3.82-4.97) M/mcL Hgb 9.8 L (11.5-15.4) g/dL Hct 29.5 L (35.3-44.9) % MCV 100.7 H (83.0-100.0) fL MCH 33.4 H (28.0-33.3) pg MCHC 33.2 (31.6-35.5) g/dL RDW 16.3 H (11.5-14.5) % Plt Count 320 (140-400) K/mcL MPV 10.2 (9.4-12.4) fL Immature Gran % 0.2 (0-4) % Seg Neutrophils % 60.3 % Lymphocytes % 23.2 % Monocytes % 13.6 % Eosinophils % 2.2 % Basophils % 0.5 % Neutrophils # 5.8 (1.6-8.9) K/mcL Lymphocytes # 2.2 (0.6-4.6) K/mcL Monocytes # 1.3 (0.0-1.3) K/mcL Eosinophils # 0.2 (0.0-0.6) K/mcL Basophils # 0.1 (0.0-0.2) K/mcL Nucleated RBCs/100 WBC 0.2 H (0) /100 WBC PT (9.4-12.1) Seconds INR Sodium (136-145) mEq/L Potassium (3.5-4.5) mEq/L Chloride (98-109) mEq/L Carbon Dioxide (19-29) mEq/L BUN (7-20) mg/dL Creatinine (0.57-1.11) mg/dL Est GFR ( Amer) (> 60) Est GFR (Non-Af Amer) (> 60) BUN/Creatinine Ratio (6-26) Glucose (70-99) mg/dL POC Glucose 129 H (58-89) Calculated Osmolality (280-300) Lactic Acid (0.5-2.2) mmol/L Calcium (8.6-10.8) mg/dL Total Bilirubin (0.2-1.2) mg/dL AST (5-34) Units/L ALT (0-55) Units/L Alkaline Phosphatase (38-126) Units/L Serum Total Protein (6.0-8.3) g/dL Albumin (3.5-5.0) g/dL Globulin (2.4-3.5) g/dL Albumin/Globulin Ratio (1.1-2.2) Amylase (25-125) Units/L Lipase (8-78) Units/L Blood Type A POSITIVE 03/26/17 03/26/17 03/26/17 Range/Units 08:56 08:56 08:56 WBC (4.3-11.1) K/mcL RBC (3.82-4.97) M/mcL Hgb (11.5-15.4) g/dL Hct (35.3-44.9) % MCV (83.0-100.0) fL MCH (28.0-33.3) pg MCHC (31.6-35.5) g/dL RDW (11.5-14.5) % Plt Count (140-400) K/mcL MPV (9.4-12.4) fL Immature Gran % (0-4) % Seg Neutrophils % % Lymphocytes % % Monocytes % % Eosinophils % % Basophils % % Neutrophils # (1.6-8.9) K/mcL Lymphocytes # (0.6-4.6) K/mcL Monocytes # (0.0-1.3) K/mcL Eosinophils # (0.0-0.6) K/mcL Basophils # (0.0-0.2) K/mcL Nucleated RBCs/100 WBC (0) /100 WBC PT 10.1 (9.4-12.1) Seconds INR 0.9 Sodium 133 L (136-145) mEq/L Potassium 3.7 (3.5-4.5) mEq/L Chloride 95 L (98-109) mEq/L Carbon Dioxide 23 (19-29) mEq/L BUN 63 H (7-20) mg/dL Creatinine 7.10 H (0.57-1.11) mg/dL Est GFR ( Amer) 7 L (> 60) Est GFR (Non-Af Amer) 6 L (> 60) BUN/Creatinine Ratio 9 (6-26) Glucose 81 (70-99) mg/dL POC Glucose (58-89) Calculated Osmolality 293 (280-300) Lactic Acid 2.0 (0.5-2.2) mmol/L Calcium 8.8 (8.6-10.8) mg/dL Total Bilirubin 0.4 (0.2-1.2) mg/dL AST 25 (5-34) Units/L ALT 21 (0-55) Units/L Alkaline Phosphatase 139 H (38-126) Units/L Serum Total Protein 6.3 (6.0-8.3) g/dL Albumin 2.7 L (3.5-5.0) g/dL Globulin 3.6 H (2.4-3.5) g/dL Albumin/Globulin Ratio 0.8 L (1.1-2.2) Amylase 184 H (25-125) Units/L Lipase 295 H (8-78) Units/L Blood Type - Radiology Data Radiology results reviewed: Yes I reviewed the patient's radiology results. - EKG Data EKG attestation: Yes I reviewed and interpreted this EKG. EKG results narrative: His bradycardia with first-degree AV block and premature atrial contractions. Weight 48 IA-2 37 QRS 105 QT/QTC 5:15/43. No acute ST segment elevation
[2017-03-26 09:03] LABS: Basophils # 0.1 K/mcL (0.0-0.2); Basophils % 0.5 %; Eosinophils # 0.2 K/mcL (0.0-0.6); Eosinophils % 2.2 %; Hematocrit 29.5 % (35.3-44.9); Hemoglobin 9.8 g/dL (11.5-15.4); Immature Granulocytes % 0.2 % (0-4); Lymphocytes # 2.2 K/mcL (0.6-4.6); Lymphocytes % 23.2 %; Mean Corpuscular HGB Conc 33.2 g/dL (31.6-35.5); Mean Corpuscular Hemoglobin 33.4 pg (28.0-33.3); Mean Corpuscular Volume 100.7 fL (83.0-100.0); Mean Platelet Volume 10.2 fL (9.4-12.4); Monocytes # 1.3 K/mcL (0.0-1.3); Monocytes % 13.6 %; Neutrophils # 5.8 K/mcL (1.6-8.9); Nucleated Red Blood Cells 0.2 /100 WBC (0); Platelet Count 320 K/mcL (140-400); Red Blood Count 2.93 M/mcL (3.82-4.97); Red Cell Distribution Width 16.3 % (11.5-14.5); Segmented Neutrophils % 60.3 %
[2017-03-26 09:08] LABS: INR 0.9; Prothrombin Time 10.1 Seconds (9.4-12.1)
[2017-03-26 09:19] LABS: Albumin 2.7 g/dL (3.5-5.0); Albumin/Globulin Ratio 0.8 (1.1-2.2); Bilirubin,Total 0.4 mg/dL (0.2-1.2); Calcium 8.8 mg/dL (8.6-10.8); Globulin 3.6 g/dL (2.4-3.5); Potassium 3.7 mEq/L (3.5-4.5); Total Protein 6.3 g/dL (6.0-8.3)
[2017-03-26] MEDS ORDERED: *HR* Dextrose 50 % in Water (Syg) 50 ML SYRINGE IVP ONE (09:34)
[2017-03-26] MEDS ORDERED: *HR* Dextrose 50 % in Water (Syg) 50 ML SYRINGE ONE (09:35)
[2017-03-26] MEDS ORDERED: *HR* HYDROmorphone (PF) 1 MG/ML SYRINGE ONE (10:16)
[2017-03-26] MEDS ORDERED: Naloxone 0.4 MG/ML INJ IVP PRN (10:26)
[2017-03-26] MEDS ORDERED: *HR* Dextrose 50 % in Water (Syg) 50 ML SYRINGE IVP PRN (10:29)
[2017-03-26] MEDS ORDERED: Dextrose Gel 15 GM PO PRN ×2 (10:29)
[2017-03-26] MEDS ORDERED: D5% in Water 1,000 ML IVC PRN (10:29)
--- NOTE | 2017-03-26 10:53 | Electrocardiograph Report ---
[facility] [employer] Test Date: 2017-03-26 Pat Name: Ursula Moffett Department: 104 Room: 2A90 Gender: F Body Liner: SLADE : 1945 Requested By: Deny Ohara Order Number: [id number] Reading MD: Luis Pelayo MD Measurements Intervals [place] Rate: 48 P: 69 NE: 237 QRS: 7 QRSD: 105 T: 83 QT: 515 QTc: 483 Interpretive Statements SINUS BRADYCARDIA WITH FIRST DEGREE AV BLOCK WITH OCCASIONAL SUPRAVENTRICULAR PREMATURE COMPLEXES NONSPECIFIC T-WAVE ABNORMALITY PROLONGED QT INTERVAL Electronically Signed On 03-26-2017 10:51:18 EST by Luis Pelayo MD
--- NOTE | 2017-03-26 11:04 | Internal Med History&Physical ---
<Koby Hall P - Last Filed: 03/26/17 15:12> Date of Encounter: 03/26/17 Internal Medicine - H&P: HPI History of present illness: Ms. Moffett is a 71 year old female Internal Medicine - H&P: Meds Levothyroxine Sodium [Synthroid] 200 mcg PO DAILY 02/08/16 [History] amLODIPine [Norvasc] 10 mg PO DAILY 02/14/16 [History] Atorvastatin [Lipitor] 40 mg PO DAILY 05/26/16 [History] Calcium Acetate [Phos-LO] 1,334 mg PO TIDWM 05/26/16 [History] Duloxetine HCl [Cymbalta] 30 mg PO DAILY 05/26/16 [History] Ergocalciferol (VITAMIN D2) [Vitamin D2] 50,000 unit PO WE 05/26/16 [History] Gabapentin [Neurontin] 300 mg PO DAILY 05/26/16 [History] Hydralazine HCl 50 mg PO Q8H 05/26/16 [History] LORazepam [Ativan] 0.5 - 1 mg PO BID PRN 05/26/16 [History] Metoprolol XL (24 HR) Succ [Toprol Xl] 50 mg PO DAILY 05/26/16 [History] Renal Vitamin [Renal Caps Softgel] 1 mg PO DAILY 05/26/16 [History] Allopurinol [Zyloprim 300 MG] 300 mg PO DAILY 05/27/16 [History] Cinacalcet [Sensipar] 30 mg PO DAILY 01/06/17 [History] Insulin Glargine [Lantus] 10 unit SQ DAILY 02/11/17 [History] Clopidogrel [Plavix] 75 mg PO DAILY 02/27/17 [History] Isosorbide MONOnitrate (24 HR) [Imdur] 60 mg PO DAILY tab.er.24h 03/02/17 [Rx] Pantoprazole [Protonix] 40 mg IVP BID vial 03/02/17 [Rx] Losartan Potassium [Cozaar] 50 mg PO DAILY 03/26/17 [History] Oxycodone HCl 15 mg PO TID 03/26/17 [History] 3 Allergy/AdvReac Type Severity Reaction Status Date / Time IVP DYE AdvReac See Uncoded 03/26/17 09:56 Comments ivp dye AdvReac See Uncoded 03/26/17 09:56 Comments All Systems PM: A 10-system review of systems was performed and is negative for pertinent findings except as documented above in the HPI. - Constitutional Vitals: Temp Pulse Resp BP Pulse Ox 97.5 F L 49 18 115/64 96 03/26/17 08:22 03/26/17 12:33 03/26/17 12:33 03/26/17 12:33 03/26/17 12:33 Internal Med - H&P Results - Labs CBC & Chem 7: 03/26/17 14:01 03/26/17 08:56 Labs: Short CBC 03/26/17 Range/Units 14:01 Hgb 9.3 L (11.5-15.4) g/dL Hct 27.6 L (35.3-44.9) % - Attending Attestation I examined this patient and my medical decision-making was reviewed with the Resident Physician/LOCK TENDER. I agree with the documented findings, disposition and treatment plan as described except to the extent set forth below. Patient seen and examined. Chart reviewed. I have examined this patient in the emergency room #10 with emergency room physician. 71-year-old female, has multiple comorbid issues. Presently admitted with the Geoffrey lower gastrointestinal bleed. Patient was recently evaluated in the [facility] and she underwent upper and lower endoscopy along with red cell nuclear scan. Patient is known to have a diabetes mellitus and noted that on arrival her blood sugar was less than 30. Patient was given D50 and presently her blood sugar is within acceptable range. Patient is hospitalized for recurrent hypoglycemia, GI bleed possible fluid overload secondary to the noncompliance with the fluid intake in a patient who has a end-stage renal disease and is undergoing dialysis presently. Plan: Admit as inpatient. Gastroneurology consulted for possible intervention for GI bleed/pancreatitis ( elevated lipase) Nephrology on the board as patient is a end-stage renal disease and presently on hemodialysis. I personally spoke with the behavioral consultant and updated in the patient's condition and location. <Prisca Cano - Last Filed: 03/26/17 17:21> Date of Encounter: 03/26/17 Time of Encounter: 11:01 Assessment and Plan (1) GI bleed Current visit: Yes Status: Acute 1 patient has been experiencing lower abdominal pain, hematochezia. She has a history of GI bleed and underwent bleeding scan upper endoscopy colonoscopy which did not demonstrate any bleeding. She was sent to [place] and again no source was found. Presently her hemoglobin is stable 9.8 we will continue to trend and monitor H&H every 6 hours 2 we will consult GI-ER notified 3 type and screen and transfuse as needed 4 recent stent X3 placed in February-we will continue with Plavix for now Qualifiers: GI bleed type/associated pathology: unspecified gastrointestinal hemorrhage type Qualified Code(s): K92.2 - Gastrointestinal hemorrhage, unspecified (2) Pancreatitis Current visit: Yes Status: Acute Patient has been experiencing lower abdominal pain CT of abdomen was negative lipase elevated we will continue to monitor Qualifiers: Chronicity: acute Pancreatitis type: unspecified pancreatitis type Acute pancreatitis complication: unspecified Qualified Code(s): K85.90 - Acute pancreatitis without necrosis or infection, unspecified (3) Uncontrolled type 2 diabetes mellitus with insulin therapy Current visit: No Status: Acute 1 patient did experience hypoglycemia this morning. She is to transition back to insulin pump, we will monitor blood sugars closely and correct with sliding scale insulin. We will consult contact lens lathe operator concerning insulin pump (4) ESRD (end stage renal disease) Current visit: No Status: Chronic 1 patient receives dialysis Friday-nephrology has been consulted and she is going to dialysis today 2 we will monitor intake and output daily weights (5) CAD (coronary artery disease) Current visit: No Status: Chronic 1 patient has a history of coronary disease with a recent stent placement in February and she is presently on Plavix which we will continue for now. Continue with beta dick and statin Qualifiers: Coronary Disease-Associated Artery/Lesion type: [place] artery [place] vs. transplanted heart: [place] heart Associated angina: without angina Qualified Code(s): I25.10 - Atherosclerotic heart disease of [place] coronary artery without angina pectoris (6) DVT prophylaxis Current visit: Yes Status: Acute ROSEMARIE ghosh (7) Anemia Current visit: Yes Status: Chronic Presently H/H stable 9.8- last month 9.4 - she has been experiencing some rectal bleeding, we will monitor H/H every 6 hrs type and screen transfuse as needed Qualifiers: Anemia type: unspecified type Qualified Code(s): D64.9 - Anemia, unspecified Internal Medicine - H&P: HPI Chief complaint: hypoglycemia Admitted From: Emergency Dept Plans for Post Hospital Care: Home History of present illness: Ms. Moffett is a 71 year old female has not history of diabetes CHF and CAD with heart catheter 02/13/17 3 stents ESRD MWF hypertension hyperlipidemia GI bleed. According to the patient she began to experience left lower quadrant abdominal cramping last night and had approximately 4 bright red bloody stools with clots over the evening. She was recently admitted to this facility in February for GI bleed. At that time upper endoscopy colonoscopy leading scan revealed no source of bleeding. She was transferred to [facility] again no source of bleeding was found. She is to undergo a capsule endoscopy later on this month. This a.m. patient had an episode of hypoglycemia with blood sugar 29. She presented to the ER was given 1 amp of D50 and blood sugar slowly worse to 48 and eventually stabilized at 129. Lab work was obtained which did reveal elevated lipase and amylase. CT of abdomen was performed which negative for any acute intra-abdominal abnormalities. He had physician to consult GI as well as nephrology and the patient has been admitted for further workup and evaluation. Presently patient denies any abdominal pain and there is no active bleeding time. She is hemodynamically stable. I did review this case Dr. Hall who agrees with plan Past Med Surg Social Fam HX - Past Medical History Medical history: coronary artery disease, diabetes, dialysis, hyperlipidemia, hypertension, renal disease, thyroid disease Psychiatric history: anxiety, depression - Past Surgical History Surgical History: hysterectomy (Partial), orthopedic, other (Back surgery), other, vascular surgery - Social History Smoking Status: Never smoker Smokeless Tobacco Status: No Alcohol use: none Drug use: none - Family History Mother Living Status: Hx Family Cardiac Disorders: Yes (CAD) Father Living Status: Hx Family Cancer: Yes (Colon) Hx Family Endocrine Disorder: Yes (DM) Brother Living Status: Hx Family Cancer: Yes (Colon) Hx Family Endocrine Disorder: Yes (DM) Sister Living Status: Hx Family Cancer: Yes (Cervical) Hx Family Endocrine Disorder: Yes (DM) All Systems PM: A 10-system review of systems was performed and is negative for pertinent findings except as documented above in the HPI. - Constitutional Constitutional: fatigue, weakness, no chills, no fever(s), no night sweats - EENT Eyes: no change in vision, no discharge, no pain, no photophobia Ears: no ear discharge, no ear pain, no tinnitus Nose, mouth and throat: no dysphagia, no nasal discharge, no neck pain, no sore throat - Cardiovascular Cardiovascular ROS IM: no chest pain, no diaphoresis, no dyspnea, no lightheadedness, no palpitations, no syncope - Respiratory Respiratory: dyspnea on exertion, no cough, no dyspnea, no wheezing, no excessive phlegm production - Gastrointestinal Gastrointestinal: abdominal pain, hematochezia - Genitourinary Genitourinary: no change in urinary stream, no dysuria, no flank pain, no hematuria - Musculoskeletal Musculoskeletal ROS IM: no numbness, no tingling - Neurological Neurological ROS: no confusion, no convulsions, no focal weakness, no numbness, no tingling, no tremor(s) - Hematologic/Lymphatic Hematologic/Lymphatic: no easy bruising - Constitutional Vitals: Temp Pulse Resp BP Pulse Ox 97.5 F L 48 16 144/71 97 03/26/17 08:22 03/26/17 10:18 03/26/17 10:18 03/26/17 10:18 03/26/17 10:18 General appearance: Present: A&O X 3, answers questions appropriately - Head Head exam: Present: atraumatic, normocephalic - Eye Eye exam: Present: PERRL, conjuntiva pink, sclera anicteric Pupils: Present: PERRL - Neck Neck exam general surgery: Present: supple, trachea midline. Absent: lymphadenopathy - Respiratory Respiratory exam: Present: CTAB. Absent: accessory muscle use, rales, rhonchi, wheezes - Cardiovascular Cardiovascular exam: Present: RRR, +S1, +S2. Absent: diastolic murmur, gallop, rubs, systolic murmur - GI/Abdominal GI/Abdominal exam: Present: normal bowel sounds, soft, no peritoneal signs. Absent: distended, tenderness - Extremities Exam Extremities exam: Present: warm, radial pulses palpable and symmetrical. Absent : calf tenderness, cyanotic, pedal edema - Neurological Exam Neurological exam: Present: CN II-XII intact, oriented X3, no focal deficits. Absent: pronater drift, facial droop, speech deficit - Skin Skin exam: Present: dry, intact Internal Med - H&P Results - Labs CBC & Chem 7: 03/26/17 14:01 03/26/17 08:56 - EKG Data EKG shows normal: sinus rhythm - EKG Data Prior EKG available for review: yes When compared to previous EKG: there is no significant change - Diagnostic Studies Other Images Additional comments: Abdomen/Pelvis CT 03/26/17 08:30 IMPRESSION: No acute findings are seen to the abdomen or pelvis to explain the patient's symptoms. Partially imaged small bilateral pleural effusions, right larger than left, stable on the left mildly worsened on the right from prior exam 02/27/2017. Stable mild diffuse nonspecific subcutaneous edema. Stable mildly diffusely increased attenuation of the liver. Question possibility of hemochromatosis or hemosiderosis. Clinical and laboratory correlation suggested. Stable chronic compression deformities and erosive change at L3-L4 level likely reflecting chronic osteomyelitis discitis. Stable chronic compression deformity at L1. D/ / 03/26/2017 09:48:07 Ray Hartman MD / martine Interpreting Provider: Ray Hartman MD
[2017-03-26 12:00] LABS: Hepatitis B Surface Antigen Nonreactive (Nonreactive)
[2017-03-26 12:01] LABS: Hepatitis B Surface Antibody 10.27 mIU/mL
[2017-03-26] MEDS: D5% in 0.45% NACL 1,000 ML IVC SCH (12:28)
[2017-03-26] MEDS: Insulin LISPRO 300 UNITS/3 ML VIAL SQ SCH ×2 (13:27→16:35)
[2017-03-26] MEDS: Calcium Acetate 667 MG CAPSULE PO SCH ×2 (13:27→16:39)
[2017-03-26] MEDS: hydrALAZINE 25 MG TABLET PO SCH ×2 (13:55→21:08)
[2017-03-26] MEDS ORDERED: 0.9 % Sodium Chloride 250 ML IVC PRN (14:37)
[2017-03-26 14:39] LABS: Hematocrit 27.6 % (35.3-44.9); Hemoglobin 9.3 g/dL (11.5-15.4)
--- NOTE | 2017-03-26 15:51 | Nephrology Consult Note ---
Date of Encounter: 03/26/17 Time of Encounter: 15:30 Assessment and Plan (1) End-stage renal disease on hemodialysis Status: Chronic Continue HD with UF goal of 2-3kg as tolerated Renal diet when off NPO Phos binders when eating (2) Anemia in ESRD (end-stage renal disease) Status: Chronic Hgb fairly stable on serial checks so far History of Present Illness - Reason for Consult Consult date: 03/26/17 end stage renal disease Requesting physician: Deny Ohara - History of Present Illness 71 y o AAfemale with PMH of DM, HTN, CAD s/p [facility] with 3 stents 02/2017 and ESRD on HD - presenting with abdominal pain with bloody stools along with hypoglycemia in the 20s. Renal consulted to manage her ESRD. Pt seen and examined on HD with no new complaints. Abdominal pain resolved and no further bloody stools noted. Past Med Surg Social Fam HX - Past Medical History Medical history: coronary artery disease, diabetes, dialysis, hyperlipidemia, hypertension, renal disease, thyroid disease Psychiatric history: anxiety, depression - Past Surgical History Surgical History: hysterectomy, orthopedic, other, other, vascular surgery - Social History Smoking Status: Never smoker Smokeless Tobacco Status: No Alcohol use: none Drug use: none - Family History Mother Living Status: Hx Family Cardiac Disorders: Yes (CAD) Father Living Status: Cause of : Colon Cancer Hx Family Cancer: Yes (Colon) Hx Family Endocrine Disorder: Yes (DM) Brother Living Status: Hx Family Cancer: Yes (Colon and prostate) Hx Family Endocrine Disorder: Yes (DM) Sister Living Status: Hx Family Cardiac Disorders: Yes Hx Family Cancer: Yes Hx Family Endocrine Disorder: Yes (DM) Medications and Allergies Levothyroxine Sodium [Synthroid] 200 mcg PO DAILY 02/08/16 [History] amLODIPine [Norvasc] 10 mg PO DAILY 02/14/16 [History] Atorvastatin [Lipitor] 40 mg PO DAILY 05/26/16 [History] Calcium Acetate [Phos-LO] 1,334 mg PO TIDWM 05/26/16 [History] Duloxetine HCl [Cymbalta] 30 mg PO DAILY 05/26/16 [History] Ergocalciferol (VITAMIN D2) [Vitamin D2] 50,000 unit PO WE 05/26/16 [History] Gabapentin [Neurontin] 300 mg PO DAILY 05/26/16 [History] Hydralazine HCl 50 mg PO Q8H 05/26/16 [History] LORazepam [Ativan] 0.5 - 1 mg PO BID PRN 05/26/16 [History] Metoprolol XL (24 HR) Succ [Toprol Xl] 50 mg PO DAILY 05/26/16 [History] Renal Vitamin [Renal Caps Softgel] 1 mg PO DAILY 05/26/16 [History] Allopurinol [Zyloprim 300 MG] 300 mg PO DAILY 05/27/16 [History] Cinacalcet [Sensipar] 30 mg PO DAILY 01/06/17 [History] Insulin Glargine [Lantus] 10 unit SQ DAILY 02/11/17 [History] Clopidogrel [Plavix] 75 mg PO DAILY 02/27/17 [History] Isosorbide MONOnitrate (24 HR) [Imdur] 60 mg PO DAILY tab.er.24h 03/02/17 [Rx] Pantoprazole [Protonix] 40 mg IVP BID vial 03/02/17 [Rx] Losartan Potassium [Cozaar] 50 mg PO DAILY 03/26/17 [History] Oxycodone HCl 15 mg PO TID 03/26/17 [History] Vancomycin Oral Soln [Vancocin] 125 mg PO QID 12 Days udc 04/02/17 [Rx] 3 Allergy/AdvReac Type Severity Reaction Status Date / Time IVP DYE AdvReac See Uncoded 03/26/17 09:56 Comments ivp dye AdvReac See Uncoded 03/26/17 09:56 Comments Review of Systems All Systems: reviewed and no additional remarkable complaints except as stated ( 10 systems reviewed) Exam - Vital Signs Vital signs: Initial Vital Signs Temp Pulse Resp BP Pulse Ox 97.5 F L 60 16 140/68 97 03/26/17 08:22 03/26/17 08:22 03/26/17 08:22 03/26/17 08:22 03/26/17 08:22 Intake and Output 03/25/17 03/26/17 03/26/17 23:59 07:59 15:59 Other: Blood Glucose* 144 - General Appearance General appearance: chronically ill, frail EENT: ATNC, mucous membranes moist Neck: no JVD, supple Respiratory: clear (ant bilat) Cardiology: no edema, normal S1, normal S2 - Dialysis Access Dialysis Vascular Access: Arteriovenous Fistula thrill: Yes bruit: Yes Gastrointestinal: no tenderness, no guarding Integumentary: warm and dry Neurologic: no focal deficit Musculoskeletal: no deformities Psychiatric: mood/affect appropriate Results - Lab Results 04/02/17 04:34 04/02/17 10:53 Most recent lab results Calcium 8.8 mg/dL (8.6-10.8) 03/26/17 08:56 Consult Discharge Plan - Plan Instructions: Gastrointestinal Bleeding (DC) Additional Instructions: F/up with GI in 2-3 weeks for capsule endoscopy Referrals: Hugo Mercedes MD [Primary Care Provider] - 04/08/17 2:00 pm () Prescriptions: Vancomycin Oral Soln [Vancocin] 125 mg PO QID 12 Days ud
[2017-03-26] MEDS: *HR* OxyCODONE Immed Rel 15 MG TABLET PO SCH ×2 (16:34→21:08)
[2017-03-26] MEDS ORDERED: 0.9 % Sodium Chloride 2,000 ML ONE (16:37)
[2017-03-26 20:22] LABS: Hematocrit 25.4 % (35.3-44.9); Hemoglobin 8.3 g/dL (11.5-15.4)
[2017-03-26] MEDS ORDERED: Insulin LISPRO 300 UNITS/3 ML VIAL SQ SCH (21:00)
[2017-03-26] MEDS: Pantoprazole 40 MG VIAL IVP SCH (21:08)
[2017-03-27] MEDS: D5% in 0.45% NACL 1,000 ML IVC SCH (01:31)
[2017-03-27] MEDS ORDERED: Insulin LISPRO 300 UNITS/3 ML VIAL SQ SCH ×3 (03:01→21:00)
[2017-03-27 03:03] LABS: Basophils % 0.3 %; Eosinophils # 0.1 K/mcL (0.0-0.6); Eosinophils % 1.2 %; Immature Granulocytes % 0.4 % (0-4); Lymphocytes # 2.3 K/mcL (0.6-4.6); Lymphocytes % 21.7 %; Mean Corpuscular Volume 103.1 fL (83.0-100.0); Mean Platelet Volume 10.7 fL (9.4-12.4); Monocytes # 0.9 K/mcL (0.0-1.3); Monocytes % 8.2 %; Neutrophils # 7.3 K/mcL (1.6-8.9); Platelet Count 296 K/mcL (140-400); Red Blood Count 2.91 M/mcL (3.82-4.97); Red Cell Distribution Width 17.1 % (11.5-14.5); Segmented Neutrophils % 68.2 %
[2017-03-27 03:05] LABS: Hemoglobin 9.9 g/dL (11.5-15.4)
[2017-03-27 03:09] LABS: INR 0.9; Prothrombin Time 9.3 Seconds (9.4-12.1)
[2017-03-27] MEDS ORDERED: Insulin DETEMIR 100 UNIT/ML X5UNITS SQ SCH (03:15)
[2017-03-27] MEDS: hydrALAZINE 25 MG TABLET PO SCH ×3 (03:18→18:56)
[2017-03-27 03:20] LABS: Albumin 2.6 g/dL (3.5-5.0); Albumin/Globulin Ratio 0.7 (1.1-2.2); Bilirubin,Total 0.4 mg/dL (0.2-1.2); Calcium 8.8 mg/dL (8.6-10.8); Chol/HDL Ratio 3.8 (0-4.9); Globulin 3.5 g/dL (2.4-3.5); Phosphorous 3.8 mg/dL (2.3-4.7); Potassium 3.3 mEq/L (3.5-4.5); Total Protein 6.1 g/dL (6.0-8.3)
[2017-03-27] MEDS ORDERED: *HR* LORazepam 0.5 MG TABLET PO ONE (06:22)
[2017-03-27] MEDS: Calcium Acetate 667 MG CAPSULE PO SCH ×3 (07:59→17:24)
[2017-03-27] MEDS ORDERED: Potassium Chloride 10 MEQ in D5% in 0.9% NACL 1,000 ML IVC SCH (08:00)
[2017-03-27] MEDS: amLODIPine 5 MG TABLET PO SCH (08:01)
[2017-03-27] MEDS: Metoprolol XL (24 HR) Succ 50 MG TAB.ER.24H PO SCH (08:03)
[2017-03-27] MEDS: Isosorbide MONOnitrate (24 HR) 60 MG TAB.ER.24H PO SCH (08:03)
[2017-03-27] MEDS: Renal Vitamin 1 MG CAPSULE PO SCH (08:03)
[2017-03-27] MEDS: Pantoprazole 40 MG VIAL IVP SCH ×2 (08:04→20:40)
[2017-03-27] MEDS: *HR* OxyCODONE Immed Rel 15 MG TABLET PO SCH ×3 (08:06→20:40)
[2017-03-27] MEDS: Gabapentin 300 MG CAPSULE PO SCH (08:06)
[2017-03-27] MEDS ORDERED: *HR* Dextrose 50 % in Water (Syg) 50 ML SYRINGE IVP PRN (08:10)
[2017-03-27] MEDS ORDERED: *HR* Dextrose 50 % in Water (Syg) 50 ML SYRINGE IVP ONE (08:10)
[2017-03-27] MEDS ORDERED: *HR* Dextrose 50 % in Water (Syg) 50 ML SYRINGE ONE (08:14)
[2017-03-27] MEDS ORDERED: D5% in Water 1,000 ML IVC SCH (08:15)
[2017-03-27 08:45] LABS: Hematocrit 28.5 % (35.3-44.9); Hemoglobin 9.4 g/dL (11.5-15.4)
[2017-03-27 11:42] LABS: Hematocrit 28.5 % (35.3-44.9); Hemoglobin 9.6 g/dL (11.5-15.4)
[2017-03-27] MEDS ORDERED: D5% in 0.9% NACL 1,000 ML IVC SCH (11:45)
--- NOTE | 2017-03-27 11:45 | Internal Med Progress Note ---
Date of Encounter: 03/27/17 Time of Encounter: 11:45 - Assessment and plan (1) GI bleed Current Visit: Yes Status: Acute Assessment and plan: 1 patient has been experiencing lower abdominal pain, hematochezia. She has a history of GI bleed and underwent bleeding scan upper endoscopy colonoscopy which did not demonstrate any bleeding. She was sent to [place] and again no source was found. - Plavix held for today, if remains stable then restart Plavix tomorrow since she had 3 cardiac stents placed one month ago. - GI/Surgery consulted, recommendations appreciated. - Transfuse as needed Qualifiers: GI bleed type/associated pathology: unspecified gastrointestinal hemorrhage type Qualified Code(s): K92.2 - Gastrointestinal hemorrhage, unspecified (2) ESRD (end stage renal disease) on dialysis Current Visit: No Status: Chronic (3) Uncontrolled type 2 diabetes mellitus with insulin therapy Current Visit: No Status: Acute Assessment and plan: Pump has not been used in 2 weeks. Patient does not seem to need any urgent colonoscopy so will advance her diet because she is severely hypoglycemic. (4) CAD (coronary artery disease) Current Visit: No Status: Chronic Qualifiers: Coronary Disease-Associated Artery/Lesion type: [place] artery [place] vs. transplanted heart: [place] heart Associated angina: without angina Qualified Code(s): I25.10 - Atherosclerotic heart disease of [place] coronary artery without angina pectoris - Subjective Interval history: Has had episodes of hypoglycemia after arriving to patient's room. She is NPO because of LGIB. She has not used her insulin pump in several weeks, she is using Levemir 10 units daily. She was still hypoglycemic after arrival to the floor, received q amp d50. She is hemodynamically stable, H&H with no acute drop, no signs of acute bleed. Less likely for emergent colonoscopy to be done today so we advanced her diet so fluids can be completely held to avoid continuing hypoglycemia. - Constitutional Vitals: Temp Pulse Resp BP Pulse Ox 98.3 F 60 18 130/54 97 03/27/17 10:36 03/27/17 10:36 03/27/17 10:36 03/27/17 10:36 03/27/17 10:36 General appearance: Present: A&O X 3, answers questions appropriately Exam: CVS: RRR Lungs: rales at bases, good aeration, no wheezing, no acute respiratory distress abdomen: mild ttp in lower quadrants. No guarding, no rebound rigidity, + normoactive bowel sounds Ext: 1+ bipedal pitting edema. Internal Medicine: Result - Labs CBC & Chem 7: 03/27/17 19:05 03/27/17 02:38 Labs: Short CBC 03/26/17 03/26/17 03/27/17 Range/Units 14:01 20:13 02:38 WBC 10.7 (4.3-11.1) K/mcL Hgb 9.3 L 8.3 L 9.9 L D (11.5-15.4) g/dL Hct 27.6 L 25.4 L 30.0 L (35.3-44.9) % Plt Count 296 (140-400) K/mcL Neutrophils # 7.3 (1.6-8.9) K/mcL 03/27/17 03/27/17 Range/Units 08:38 11:33 WBC (4.3-11.1) K/mcL Hgb 9.4 L 9.6 L (11.5-15.4) g/dL Hct 28.5 L 28.5 L (35.3-44.9) % Plt Count (140-400) K/mcL Neutrophils # (1.6-8.9) K/mcL BMP 03/27/17 02:38 Sodium 136 Potassium 3.3 L Chloride 97 L Carbon Dioxide 22 BUN 38 H D Creatinine 5.03 H Glucose 515 H* Calcium 8.8 Liver Function 03/27/17 Range/Units 02:38 Total Bilirubin 0.4 (0.2-1.2) mg/dL AST 20 (5-34) Units/L ALT 20 (0-55) Units/L Alkaline Phosphatase 138 H (38-126) Units/L Albumin 2.6 L (3.5-5.0) g/dL - ABG Interpretation ABG results: PT/INR, D-dimer PT 9.3 Seconds (9.4-12.1) L 03/27/17 02:38 Consult Discharge Plan - Plan Referrals: Hugo Mercedes MD [Primary Care Provider] -
[2017-03-27] MEDS: Insulin LISPRO 300 UNITS/3 ML VIAL SQ SCH ×2 (11:50→20:12)
[2017-03-27] MEDS: *HR* Dextrose 50 % in Water (Syg) 50 ML SYRINGE IVP PRN (12:52)
--- NOTE | 2017-03-27 15:01 | Nephrology Progress Note ---
Date of Encounter: 03/27/17 - Assessment and Plan (1) End-stage renal disease on hemodialysis Current Visit: No Status: Chronic (2) Anemia in ESRD (end-stage renal disease) Current Visit: No Status: Chronic Objective - Vital Signs Vital signs: Vital Signs Temp Pulse Resp BP Pulse Ox 03/27/17 10:36 98.3 F 60 18 130/54 97 03/27/17 08:36 98 03/27/17 06:33 98.3 F 57 18 149/73 98 03/27/17 03:38 98.2 F 53 16 142/77 96 03/27/17 01:19 98.3 F 66 16 138/57 94 03/26/17 21:04 98.2 F 58 16 127/53 94 03/26/17 19:10 98.7 F 114/68 03/26/17 19:00 110/54 03/26/17 18:30 102/55 03/26/17 18:00 109/53 03/26/17 17:30 125/55 03/26/17 17:00 118/52 03/26/17 16:30 132/50 03/26/17 16:00 124/51 03/26/17 15:30 97.4 F L 17 116/53 Intake and Output 03/26/17 03/27/17 03/27/17 23:59 07:59 15:59 Intake Total 0 / 0 167 / 167 Output Total 3600 / 3600 Balance -3600 / -3600 167 / 167 Intake: IV Fluids 167 / 167 KCl 10 MEQ In D5% And 0.9% Nacl 167 / 167 1000 Ml 1,000 ML @ 75 mls/hr IVC .[id number] [facility] Rx#:[id number] Oral 0 / 0 Output: Urine 0 / 0 Total Dialysis (HD) Output 3600 / 3600 Other: Stool Size Copious Large Smear Stool Consistency liquid liquid liquid Stool Color Black Bright Red Blood Dark Red Blood Bright Red Blood Blood Tinged Dark Red Blood # Bowel Movements 1 1 # Bowel Movement Diapers 1 1 Weight 72.9 kg Blood Glucose* 185 46 117 Hemodialysis Net Fluid Removed 3000 (mL) Patient Weight 03/27/17 23:59 Weight 72.9 kg - Lab 03/27/17 11:33 03/27/17 02:38 Most recent lab results Calcium 8.8 mg/dL (8.6-10.8) 03/27/17 02:38 Phosphorus 3.8 mg/dL (2.3-4.7) 03/27/17 02:38 Magnesium 2.0 mg/dL (1.6-2.6) 03/27/17 02:38 Consult Discharge Plan - Plan Referrals: Hugo Mercedes MD [Primary Care Provider] -
[2017-03-27] MEDS ORDERED: *HR* Morphine 2 MG/ML SYRINGE IVP PRN (18:38)
[2017-03-27] MEDS: Acetaminophen 325 MG TABLET PO PRN (18:56)
[2017-03-27] MEDS: Ondansetron 4 MG/2 ML VIAL IVP PRN (19:00)
[2017-03-27 19:20] LABS: Hematocrit 29.8 % (35.3-44.9); Hemoglobin 9.8 g/dL (11.5-15.4)
[2017-03-28] MEDS: hydrALAZINE 25 MG TABLET PO SCH ×3 (06:37→23:33)
[2017-03-28] MEDS: Insulin DETEMIR 100 UNIT/ML X5UNITS SQ SCH ×2 (06:38→20:28)
[2017-03-28] MEDS: Insulin LISPRO 300 UNITS/3 ML VIAL SQ SCH ×6 (06:38→23:29)
[2017-03-28 07:14] LABS: Basophils % 0.3 %; Eosinophils # 0.1 K/mcL (0.0-0.6); Eosinophils % 0.7 %; Hematocrit 29.4 % (35.3-44.9); Hemoglobin 9.3 g/dL (11.5-15.4); Immature Granulocytes % 0.3 % (0-4); Lymphocytes # 1.8 K/mcL (0.6-4.6); Lymphocytes % 15.2 %; Mean Corpuscular HGB Conc 31.6 g/dL (31.6-35.5); Mean Corpuscular Hemoglobin 33.5 pg (28.0-33.3); Mean Corpuscular Volume 105.8 fL (83.0-100.0); Mean Platelet Volume 11.5 fL (9.4-12.4); Monocytes # 1.3 K/mcL (0.0-1.3); Monocytes % 11.3 %; Neutrophils # 8.4 K/mcL (1.6-8.9); Platelet Count 227 K/mcL (140-400); Red Blood Count 2.78 M/mcL (3.82-4.97); Red Cell Distribution Width 17.4 % (11.5-14.5); Segmented Neutrophils % 72.2 %
[2017-03-28 07:24] LABS: BUN/Creatinine Ratio 7 (6-26); Blood Urea Nitrogen 46 mg/dL (7-20); Calcium 8.2 mg/dL (8.6-10.8); Carbon Dioxide 16 mEq/L (19-29); Chloride 99 mEq/L (98-109); Osmolality,Calculated 319 (280-300); Sodium 135 mEq/L (136-145); eGFR For African Americans 8 (> 60); eGFR For Non-African Americans 7 (> 60)
[2017-03-28 07:27] LABS: Potassium 4.5 mEq/L (3.5-4.5)
[2017-03-28 07:29] LABS: Glucose 581 mg/dL (70-99)
[2017-03-28] MEDS ORDERED: Insulin LISPRO 300 UNITS/3 ML VIAL SQ SCH ×2 (07:30→21:00)
[2017-03-28] MEDS: Pantoprazole 40 MG VIAL IVP SCH ×2 (08:05→20:29)
[2017-03-28] MEDS: Calcium Acetate 667 MG CAPSULE PO SCH ×3 (08:05→18:43)
[2017-03-28] MEDS: Renal Vitamin 1 MG CAPSULE PO SCH (08:06)
[2017-03-28] MEDS: Gabapentin 300 MG CAPSULE PO SCH (08:06)
[2017-03-28] MEDS: Isosorbide MONOnitrate (24 HR) 60 MG TAB.ER.24H PO SCH (08:07)
[2017-03-28] MEDS: amLODIPine 5 MG TABLET PO SCH (08:07)
[2017-03-28] MEDS: Metoprolol XL (24 HR) Succ 50 MG TAB.ER.24H PO SCH (08:07)
[2017-03-28 08:08] LABS: ABG Base Excess -7 mEq/L (-2 to 3); ABG HCO3 19 mEq/L (21-27); ABG Oxygen Saturation 91 % (95-98); ABG PCO2 39 mmHg (35-45); ABG PH 7.29 pH Units (7.32-7.45); ABG PO2 69 mmHg (85-104); ABG TCO2 20 mEq/L (20-26)
[2017-03-28] MEDS: *HR* OxyCODONE Immed Rel 15 MG TABLET PO SCH (08:09)
[2017-03-28] MEDS ORDERED: 0.9 % Sodium Chloride 250 ML IVC PRN (08:20)
[2017-03-28] MEDS ORDERED: 0.9 % Sodium Chloride 1,000 ML PRIME SCH (08:30)
[2017-03-28] MEDS ORDERED: *HR* Morphine 2 MG/ML SYRINGE IVP PRN (08:44)
[2017-03-28 08:50] LABS: Beta-Hydroxybutyric Acid > 2.00 mmol/L (0.02-0.27)
[2017-03-28] MEDS ORDERED: INSULIN HUMAN REGULAR IV ONE (08:55)
[2017-03-28] MEDS ORDERED: SODIUM CHLORIDE 0.9% IV ONE (08:55)
[2017-03-28] MEDS ORDERED: Insulin Regular, Human 100 UNIT/ML IV PRN (09:28)
[2017-03-28] MEDS ORDERED: *HR* Dextrose 50 % in Water (Syg) 50 ML SYRINGE IVP PRN (09:28)
[2017-03-28] MEDS ORDERED: 0.9 % Sodium Chloride 250 ML IVC ONE (09:45)
[2017-03-28] MEDS: Insulin Human Regular 100 UNIT in 0.9 % Sodium Chloride 100 ML IVC SCH (11:00)
[2017-03-28] MEDS ORDERED: 0.9 % Sodium Chloride 250 ML ONE (12:28)
--- NOTE | 2017-03-28 16:35 | Nephrology Progress Note ---
Date of Encounter: 03/28/17 - Assessment and Plan (1) End-stage renal disease on hemodialysis Current Visit: No Status: Chronic (2) Anemia in ESRD (end-stage renal disease) Current Visit: No Status: Chronic Objective - Vital Signs Vital signs: Vital Signs Temp Pulse Resp BP Pulse Ox 03/28/17 15:07 97.8 F 60 16 107/50 93 03/28/17 11:00 98.2 F 62 12 112/48 100 03/28/17 10:47 98.2 F 62 12 100 03/28/17 08:04 98.5 F 65 9 128/63 95 03/28/17 04:57 98.5 F 73 16 103/55 96 03/27/17 19:37 98.1 F 60 16 119/57 97 03/27/17 19:11 98 03/27/17 17:18 97.8 F 62 15 133/73 98 Intake and Output 03/28/17 03/28/17 03/28/17 07:59 15:59 23:59 Intake Total 0 / 0 617.36 / 617.36 Output Total 0 / 0 0 / 0 Balance 0 / 0 617.36 / 617.36 Intake: IV Fluids 257.36 / 257.36 0.9 % Sodium Chloride 250 ML @ 250 / 250 500 mls/hr IVC .Q30M [facility] Rx#: [id number] HumuLIN R 100 UNIT In 0.9 % 7.36 / 7.36 Sodium Chloride 100 ML @ 0.1 UNIT/KG/HR 7.36 mls/hr IVC CONT [facility] Rx#:[id number] Oral 0 / 0 360 / 360 Output: Urine 0 / 0 0 / 0 Other: Meal Lunch Percent of Meal Consumed 25% Stool Size Moderate Stool Consistency liquid Stool Characteristics Normal for Patient Stool Color Brown Blood Tinged # Voids 1 # Bowel Movements 2 # Bowel Movement Diapers 2 Weight 71.2 kg Blood Glucose* 560 71 75 Patient Weight 03/28/17 23:59 Weight 71.2 kg - Lab 03/28/17 06:27 03/28/17 06:27 Most recent lab results ABG pH 7.29 pH Units (7.32-7.45) L 03/28/17 08:03 ABG pCO2 39 mmHg (35-45) 03/28/17 08:03 ABG pO2 69 mmHg (85-104) L 03/28/17 08:03 ABG HCO3 19 mEq/L (21-27) L 03/28/17 08:03 ABG O2 Saturation 91 % (95-98) L 03/28/17 08:03 Calcium 8.2 mg/dL (8.6-10.8) L 03/28/17 06:27 Phosphorus 3.8 mg/dL (2.3-4.7) 03/27/17 02:38 Magnesium 2.0 mg/dL (1.6-2.6) 03/27/17 02:38 Consult Discharge Plan - Plan Referrals: Hugo Mercedes MD [Primary Care Provider] -
[2017-03-28] MEDS ORDERED: 0.9 % Sodium Chloride 2,000 ML ONE (19:36)
[2017-03-28] MEDS: *HR* OxyCODONE Immed Rel 15 MG TABLET PO PRN (20:29)
[2017-03-28] MEDS: Ondansetron 4 MG/2 ML VIAL IVP PRN (20:29)
--- NOTE | 2017-03-28 21:12 | Internal Med Progress Note ---
Date of Encounter: 03/28/17 Time of Encounter: 11:08 - Assessment and plan (1) GI bleed Current Visit: Yes Status: Acute Assessment and plan: 1 patient has been experiencing lower abdominal pain, hematochezia. She has a history of GI bleed and underwent bleeding scan upper endoscopy colonoscopy which did not demonstrate any bleeding. She was sent to [place] and again no source was found. Patient has remained stable, Plavix will be restarted 03/28 since since she had 3 cardiac stents placed one month ago and his high risk for MO/CVA/ACS/VTE. - GI/Surgery consulted, recommendations appreciated. - Transfuse as needed Qualifiers: GI bleed type/associated pathology: unspecified gastrointestinal hemorrhage type Qualified Code(s): K92.2 - Gastrointestinal hemorrhage, unspecified (2) ESRD (end stage renal disease) on dialysis Current Visit: No Status: Chronic (3) Uncontrolled type 2 diabetes mellitus with insulin therapy Current Visit: No Status: Acute Assessment and plan: Brittle diabetic Patient states prior to admission, insulin pump never worked. Patient does not seem to need any urgent colonoscopy so will advance her diet because she is severely hypoglycemic. 03/28: patient became hyperglycemic and ketotic, likely DKA vs starvation ketosis. She was transferred to . Continue insulin drip and close monitoring. (4) CAD (coronary artery disease) Current Visit: No Status: Chronic Qualifiers: Coronary Disease-Associated Artery/Lesion type: [place] artery [place] vs. transplanted heart: [place] heart Associated angina: without angina Qualified Code(s): I25.10 - Atherosclerotic heart disease of [place] coronary artery without angina pectoris - Subjective Interval history: 03/27: Has had episodes of hypoglycemia after arriving to patient's room. She is NPO because of LGIB. She has not used her insulin pump in several weeks, she is using Levemir 10 units daily. She was still hypoglycemic after arrival to the floor, received q amp d50. She is hemodynamically stable, H&H with no acute drop, no signs of acute bleed. Less likely for emergent colonoscopy to be done today so we advanced her diet so fluids can be completely held to avoid continuing hypoglycemia. 03/28: remained hemodynamically stable, H&H stable overnight. She did have elevated glucose during night time and was given 10 units levemir and covered with 7 units of Humalog. Called by nursing that glucose in AM was 581 and AG was 20. Stat ABG ordered showing metabolic acidosis with bicarb 19 and ketones >2. She is fluid overloaded as ESRD patient so no more than 250 cc bolus was given. In order to tighten glycemic control, she was transferred to to be placed on insulin drip. - Constitutional Vitals: Temp Pulse Resp BP Pulse Ox 97.1 F L 60 18 103/52 93 03/28/17 15:30 03/28/17 15:07 03/28/17 15:30 03/28/17 18:00 03/28/17 15:07 General appearance: Present: A&O X 3, answers questions appropriately Exam: CVS: RRR Lungs: course breath sounds throughout, no w/r/r Abd: soft, non-distended, + TTP lower abdominal quadrants. Normal bowel sounds , no rebound rigidity Ext: trace bipedal edema Internal Medicine: Result - Labs CBC & Chem 7: 03/28/17 06:27 03/28/17 06:27 Labs: Short CBC 03/28/17 Range/Units 06:27 WBC 11.5 H (4.3-11.1) K/mcL Hgb 9.3 L (11.5-15.4) g/dL Hct 29.4 L (35.3-44.9) % Plt Count 227 (140-400) K/mcL Neutrophils # 8.4 (1.6-8.9) K/mcL BMP 03/28/17 06:27 Sodium 135 L Potassium 4.5 D Chloride 99 Carbon Dioxide 16 L BUN 46 H Creatinine 6.19 H Glucose 581 H* Calcium 8.2 L - ABG Interpretation ABG results: ABG ABG pH 7.29 pH Units (7.32-7.45) L 03/28/17 08:03 ABG pCO2 39 mmHg (35-45) 03/28/17 08:03 ABG pO2 69 mmHg (85-104) L 03/28/17 08:03 ABG O2 Saturation 91 % (95-98) L 03/28/17 08:03 PT/INR, D-dimer PT 9.3 Seconds (9.4-12.1) L 03/27/17 02:38 Consult Discharge Plan - Plan Referrals: Hugo Mercedes MD [Primary Care Provider] -
[2017-03-29] MEDS: Insulin LISPRO 300 UNITS/3 ML VIAL SQ SCH ×6 (03:12→23:12)
[2017-03-29 04:16] LABS: Basophils % 0.4 %; Eosinophils # 0.2 K/mcL (0.0-0.6); Eosinophils % 2.2 %; Hematocrit 33.7 % (35.3-44.9); Hemoglobin 10.6 g/dL (11.5-15.4); Immature Granulocytes % 0.3 % (0-4); Lymphocytes # 2.9 K/mcL (0.6-4.6); Lymphocytes % 27.8 %; Mean Corpuscular HGB Conc 31.5 g/dL (31.6-35.5); Mean Platelet Volume 11.9 fL (9.4-12.4); Monocytes # 1.2 K/mcL (0.0-1.3); Monocytes % 11.5 %; Platelet Count 258 K/mcL (140-400); Red Blood Count 3.21 M/mcL (3.82-4.97); Red Cell Distribution Width 17.5 % (11.5-14.5); Segmented Neutrophils % 57.8 %
[2017-03-29 05:54] LABS: Calcium 8.4 mg/dL (8.6-10.8); Potassium 3.5 mEq/L (3.5-4.5)
[2017-03-29 08:13] LABS: Calcium 8.1 mg/dL (8.6-10.8); Potassium 3.8 mEq/L (3.5-4.5)
[2017-03-29] MEDS: amLODIPine 5 MG TABLET PO SCH (08:37)
[2017-03-29] MEDS: Isosorbide MONOnitrate (24 HR) 60 MG TAB.ER.24H PO SCH (08:38)
[2017-03-29] MEDS: Acetaminophen 325 MG TABLET PO PRN (08:38)
[2017-03-29] MEDS: hydrALAZINE 25 MG TABLET PO SCH ×3 (08:38→23:12)
[2017-03-29] MEDS: Renal Vitamin 1 MG CAPSULE PO SCH (08:38)
[2017-03-29] MEDS: Metoprolol XL (24 HR) Succ 50 MG TAB.ER.24H PO SCH (08:38)
[2017-03-29] MEDS: Gabapentin 300 MG CAPSULE PO SCH (08:38)
[2017-03-29] MEDS: Calcium Acetate 667 MG CAPSULE PO SCH ×3 (08:39→17:08)
[2017-03-29] MEDS: Pantoprazole 40 MG VIAL IVP SCH ×2 (08:39→21:09)
[2017-03-29 13:16] LABS: Calcium 8.2 mg/dL (8.6-10.8); Potassium 4.2 mEq/L (3.5-4.5)
[2017-03-29] MEDS ORDERED: *HR* Promethazine 25 MG/ML VIAL IVP PRN (13:52)
[2017-03-29 17:05] LABS: Calcium 7.9 mg/dL (8.6-10.8); Potassium 4.5 mEq/L (3.5-4.5)
[2017-03-29] MEDS: *HR* OxyCODONE Immed Rel 15 MG TABLET PO PRN ×2 (18:26→23:19)
[2017-03-29] MEDS: Insulin Human Regular 100 UNIT in 0.9 % Sodium Chloride 100 ML IVC SCH (19:03)
[2017-03-29] MEDS: Insulin DETEMIR 100 UNIT/ML X5UNITS SQ SCH (21:09)
--- NOTE | 2017-03-29 21:48 | Internal Med Progress Note ---
Date of Encounter: 03/29/17 Time of Encounter: 17:46 - Assessment and plan (1) GI bleed Current Visit: Yes Status: Acute Assessment and plan: She has a history of GI bleed and underwent bleeding scan upper endoscopy colonoscopy recently at [place] no source of bleeding was found. She was sent to [place] and again no source was found. Patient has remained stable, Plavix restarted 03/28 since since she had 3 cardiac stents placed one month ago and his high risk for cardiac events. Hemoglobin stable. - GI/Surgery consulted, recommendations appreciated. - Transfuse as needed Qualifiers: GI bleed type/associated pathology: unspecified gastrointestinal hemorrhage type Qualified Code(s): K92.2 - Gastrointestinal hemorrhage, unspecified (2) ESRD (end stage renal disease) on dialysis Current Visit: No Status: Chronic (3) Uncontrolled type 2 diabetes mellitus with insulin therapy Current Visit: No Status: Acute Assessment and plan: Brittle diabetic Patient states prior to admission, insulin pump never worked. Patient does not seem to need any urgent colonoscopy so will advance her diet because she is severely hypoglycemic. 03/28: patient became hyperglycemic and ketotic, likely DKA vs starvation ketosis. She was transferred to . Continue insulin drip and close monitoring. 03/29: Patient now on sq levemir and sliding scale. glucose runs in 100s-300s currently. Will only adjust insulin if absolutely needed, as she can get hypo and hyperglycemic very easily. (4) Dizziness Current Visit: Yes Status: Acute Assessment and plan: Hemoglobin is stable, no signs of active bleed, and hemodynamically stable. This is less likely acute blood loss. Clinically sounds more so as a vertigo or Meniere's disease process. Will give small dose of Phenergan as needed. Consult PT for evaluation and for Claudia's maneuver. If this was to be Meniere' s disease, salt restriction would be intial treatment and she is currently on a renal diet. Did note today that there was a pizza box in her room. Patient and did reassure me this was only for her . (5) CAD (coronary artery disease) Current Visit: No Status: Chronic Qualifiers: Coronary Disease-Associated Artery/Lesion type: [place] artery [place] vs. transplanted heart: [place] heart Associated angina: without angina Qualified Code(s): I25.10 - Atherosclerotic heart disease of [place] coronary artery without angina pectoris - Subjective Interval history: 03/27: Has had episodes of hypoglycemia after arriving to patient's room. She is NPO because of LGIB. She has not used her insulin pump in several weeks, she is using Levemir 10 units daily. She was still hypoglycemic after arrival to the floor, received q amp d50. She is hemodynamically stable, H&H with no acute drop, no signs of acute bleed. Less likely for emergent colonoscopy to be done today so we advanced her diet so fluids can be completely held to avoid continuing hypoglycemia. 03/28: remained hemodynamically stable, H&H stable overnight. She did have elevated glucose during night time and was given 10 units levemir and covered with 7 units of Humalog. Called by nursing that glucose in AM was 581 and AG was 20. Stat ABG ordered showing metabolic acidosis with bicarb 19 and ketones >2. She is fluid overloaded as ESRD patient so no more than 250 cc bolus was given. In order to tighten glycemic control, she was transferred to to be placed on insulin drip. 03/29: Glucose improved, ketones still present but decreased. No signs of active bleed. Had a slight amount of blood in a BM. Does admit to dizziness as she started sitting up today. She admits to nausea and vertigo. Denies any emesis. - Constitutional Vitals: Temp Pulse Resp BP Pulse Ox 98.1 F 64 16 106/41 96 03/29/17 19:16 03/29/17 21:20 03/29/17 19:16 03/29/17 19:16 03/29/17 19:16 General appearance: Present: A&O X 3, answers questions appropriately Exam: CVS: RRR Lungs: course breath sounds throughout, no w/r/r Abd: soft, non-distended, + TTP lower abdominal quadrants. Normal bowel sounds , no rebound rigidity Ext: trace bipedal edema Internal Medicine: Result - Labs CBC & Chem 7: 03/29/17 03:59 03/29/17 16:43 Labs: Short CBC 03/29/17 Range/Units 03:59 WBC 10.4 (4.3-11.1) K/mcL Hgb 10.6 L (11.5-15.4) g/dL Hct 33.7 L (35.3-44.9) % Plt Count 258 (140-400) K/mcL Neutrophils # 6.0 (1.6-8.9) K/mcL BMP 03/29/17 03/29/17 03/29/17 05:33 07:54 12:53 Sodium 137 137 136 Potassium 3.5 D 3.8 4.2 Chloride 96 L 97 L 95 L Carbon Dioxide 28 28 26 BUN 28 H D 29 H 33 H Creatinine 5.09 H 5.22 H 5.67 H Glucose 142 H 159 H 355 H Calcium 8.4 L 8.1 L 8.2 L 03/29/17 16:43 Sodium 136 Potassium 4.5 Chloride 98 Carbon Dioxide 24 BUN 36 H Creatinine 5.82 H Glucose 195 H Calcium 7.9 L - ABG Interpretation ABG results: ABG ABG pH 7.29 pH Units (7.32-7.45) L 03/28/17 08:03 ABG pCO2 39 mmHg (35-45) 03/28/17 08:03 ABG pO2 69 mmHg (85-104) L 03/28/17 08:03 ABG O2 Saturation 91 % (95-98) L 03/28/17 08:03 PT/INR, D-dimer PT 9.3 Seconds (9.4-12.1) L 03/27/17 02:38 Consult Discharge Plan - Plan Referrals: Hugo Mercedes MD [Primary Care Provider] -
[2017-03-30] MEDS: Insulin LISPRO 300 UNITS/3 ML VIAL SQ SCH ×6 (03:57→23:27)
[2017-03-30] MEDS: Ondansetron 4 MG/2 ML VIAL IVP PRN (06:14)
[2017-03-30 06:37] LABS: Basophils % 0.3 %; Eosinophils # 0.1 K/mcL (0.0-0.6); Eosinophils % 0.7 %; Hematocrit 35.2 % (35.3-44.9); Hemoglobin 11.2 g/dL (11.5-15.4); Immature Granulocytes % 0.4 % (0-4); Immature Platelets 4.3 % (1.1-6.1); Lymphocytes # 1.7 K/mcL (0.6-4.6); Lymphocytes % 18.2 %; Mean Corpuscular HGB Conc 31.8 g/dL (31.6-35.5); Mean Corpuscular Hemoglobin 33.6 pg (28.0-33.3); Mean Corpuscular Volume 105.7 fL (83.0-100.0); Mean Platelet Volume 10.6 fL (9.4-12.4); Monocytes # 0.9 K/mcL (0.0-1.3); Monocytes % 9.3 %; Neutrophils # 6.7 K/mcL (1.6-8.9); Platelet Count 248 K/mcL (140-400); Red Blood Count 3.33 M/mcL (3.82-4.97); Red Cell Distribution Width 16.9 % (11.5-14.5); Segmented Neutrophils % 71.1 %
[2017-03-30 06:51] LABS: Calcium 8.4 mg/dL (8.6-10.8); Potassium 3.8 mEq/L (3.5-4.5)
[2017-03-30] MEDS: Isosorbide MONOnitrate (24 HR) 60 MG TAB.ER.24H PO SCH (08:24)
[2017-03-30] MEDS: Pantoprazole 40 MG VIAL IVP SCH ×2 (08:24→20:36)
[2017-03-30] MEDS: Metoprolol XL (24 HR) Succ 50 MG TAB.ER.24H PO SCH (08:24)
[2017-03-30] MEDS: hydrALAZINE 25 MG TABLET PO SCH ×2 (08:24→15:34)
[2017-03-30] MEDS: Gabapentin 300 MG CAPSULE PO SCH (08:25)
[2017-03-30] MEDS: Renal Vitamin 1 MG CAPSULE PO SCH (08:25)
[2017-03-30] MEDS: Calcium Acetate 667 MG CAPSULE PO SCH ×3 (08:25→17:19)
[2017-03-30] MEDS: amLODIPine 5 MG TABLET PO SCH (08:25)
[2017-03-30] MEDS: *HR* OxyCODONE Immed Rel 15 MG TABLET PO PRN ×2 (08:26→17:19)
[2017-03-30] MEDS: Acetaminophen 325 MG TABLET PO PRN (11:47)
[2017-03-30] MEDS ORDERED: *HR* LORazepam 0.5 MG TABLET PO ONE (14:48)
--- NOTE | 2017-03-30 18:23 | Internal Med Progress Note ---
Date of Encounter: 03/30/17 Time of Encounter: 12:32 - Assessment and plan (1) GI bleed Current Visit: Yes Status: Acute Assessment and plan: She has a history of GI bleed and underwent bleeding scan upper endoscopy colonoscopy recently at [place] no source of bleeding was found. She was sent to [place] and again no source was found. Patient has remained stable, Plavix restarted 03/28 since since she had 3 cardiac stents placed one month ago and his high risk for cardiac events. Hemoglobin stable. - GI/Surgery consulted, recommendations appreciated. - Transfuse as needed Qualifiers: GI bleed type/associated pathology: unspecified gastrointestinal hemorrhage type Qualified Code(s): K92.2 - Gastrointestinal hemorrhage, unspecified (2) ESRD (end stage renal disease) on dialysis Current Visit: No Status: Chronic (3) Uncontrolled type 2 diabetes mellitus with insulin therapy Current Visit: No Status: Acute Assessment and plan: Brittle diabetic Patient states prior to admission, insulin pump never worked. Patient does not seem to need any urgent colonoscopy so will advance her diet because she is severely hypoglycemic. 03/28: patient became hyperglycemic and ketotic, likely DKA vs starvation ketosis. She was transferred to . Continue insulin drip and close monitoring. 03/29: Patient now on sq levemir and sliding scale. glucose runs in 100s-300s currently. Will only adjust insulin if absolutely needed, as she can get hypo and hyperglycemic very easily. Serum ketones improved but still present. Continue current insuling regimine and repeat ketone since still present in serum. (4) Dizziness Current Visit: Yes Status: Acute Assessment and plan: Hemoglobin is stable, no signs of active bleed, and hemodynamically stable. This is less likely acute blood loss. Clinically sounds more so as a vertigo or Meniere's disease process. Will give small dose of Phenergan as needed. Consult PT for evaluation and for Claudia's maneuver. If this was to be Meniere' s disease, salt restriction would be intial treatment and she is currently on a renal diet. Phenergan not effective. She takes Ativan PO 0.5 mg BID at home. Resuming this medication might help her symptoms. If it does not, we will try meclizine. PT consult to do Claudia's maneuver Friday. (5) CAD (coronary artery disease) Current Visit: No Status: Chronic Assessment and plan: Plavix restarted as she has had recent stents in February. Qualifiers: Coronary Disease-Associated Artery/Lesion type: [place] artery [place] vs. transplanted heart: [place] heart Associated angina: without angina Qualified Code(s): I25.10 - Atherosclerotic heart disease of [place] coronary artery without angina pectoris - Subjective Interval history: 03/27: Has had episodes of hypoglycemia after arriving to patient's room. She is NPO because of LGIB. She has not used her insulin pump in several weeks, she is using Levemir 10 units daily. She was still hypoglycemic after arrival to the floor, received q amp d50. She is hemodynamically stable, H&H with no acute drop, no signs of acute bleed. Less likely for emergent colonoscopy to be done today so we advanced her diet so fluids can be completely held to avoid continuing hypoglycemia. 03/28: remained hemodynamically stable, H&H stable overnight. She did have elevated glucose during night time and was given 10 units levemir and covered with 7 units of Humalog. Called by nursing that glucose in AM was 581 and AG was 20. Stat ABG ordered showing metabolic acidosis with bicarb 19 and ketones >2. She is fluid overloaded as ESRD patient so no more than 250 cc bolus was given. In order to tighten glycemic control, she was transferred to to be placed on insulin drip. 03/29: Glucose improved, ketones still present but decreased. No signs of active bleed. Had a slight amount of blood in a BM. Does admit to dizziness as she started sitting up today. She admits to nausea and vertigo. Denies any emesis. Still having vertigo. Low dose Phenergan IV was given without any help. - Constitutional Vitals: Temp Pulse Resp BP Pulse Ox 98.1 F 56 20 88/57 98 03/30/17 15:05 03/30/17 15:05 03/30/17 15:05 03/30/17 15:05 03/30/17 15:05 General appearance: Present: A&O X 3, answers questions appropriately Exam: CVS: RRR Lungs: course breath sounds throughout, no w/r/r Abd: soft, non-distended, + TTP lower abdominal quadrants. Normal bowel sounds , no rebound rigidity Ext: trace bipedal edema Internal Medicine: Result - Labs CBC & Chem 7: 03/30/17 06:30 03/30/17 06:30 Labs: Short CBC 03/30/17 Range/Units 06:30 WBC 9.5 (4.3-11.1) K/mcL Hgb 11.2 L (11.5-15.4) g/dL Hct 35.2 L (35.3-44.9) % Plt Count 248 (140-400) K/mcL Neutrophils # 6.7 (1.6-8.9) K/mcL BMP 03/30/17 06:30 Sodium 136 Potassium 3.8 Chloride 98 Carbon Dioxide 24 BUN 41 H Creatinine 6.61 H Glucose 84 Calcium 8.4 L - ABG Interpretation ABG results: ABG ABG pH 7.29 pH Units (7.32-7.45) L 03/28/17 08:03 ABG pCO2 39 mmHg (35-45) 03/28/17 08:03 ABG pO2 69 mmHg (85-104) L 03/28/17 08:03 ABG O2 Saturation 91 % (95-98) L 03/28/17 08:03 PT/INR, D-dimer PT 9.3 Seconds (9.4-12.1) L 03/27/17 02:38 Consult Discharge Plan - Plan Referrals: Hugo Mercedes MD [Primary Care Provider] -
[2017-03-30] MEDS: Insulin DETEMIR 100 UNIT/ML X5UNITS SQ SCH (20:35)
[2017-03-30] MEDS: Insulin Human Regular 100 UNIT in 0.9 % Sodium Chloride 100 ML IVC SCH (20:41)
[2017-03-30] MEDS ORDERED: *HR* LORazepam 0.5 MG TABLET PO PRN (21:00)
[2017-03-31] MEDS: hydrALAZINE 25 MG TABLET PO SCH ×3 (02:15→15:50)
[2017-03-31 03:32] LABS: Basophils # 0.1 K/mcL (0.0-0.2); Basophils % 0.5 %; Eosinophils # 0.2 K/mcL (0.0-0.6); Eosinophils % 1.7 %; Hematocrit 28.7 % (35.3-44.9); Hemoglobin 9.6 g/dL (11.5-15.4); Immature Granulocytes % 2.4 % (0-4); Lymphocytes # 2.8 K/mcL (0.6-4.6); Lymphocytes % 25.9 %; Mean Corpuscular HGB Conc 33.4 g/dL (31.6-35.5); Mean Corpuscular Hemoglobin 33.9 pg (28.0-33.3); Mean Corpuscular Volume 101.4 fL (83.0-100.0); Mean Platelet Volume 11.8 fL (9.4-12.4); Monocytes # 1.2 K/mcL (0.0-1.3); Monocytes % 10.7 %; Neutrophils # 6.4 K/mcL (1.6-8.9); Nucleated Red Blood Cells 0.3 /100 WBC (0); Platelet Count 204 K/mcL (140-400); Red Blood Count 2.83 M/mcL (3.82-4.97); Red Cell Distribution Width 16.4 % (11.5-14.5); Segmented Neutrophils % 58.8 %
[2017-03-31 03:42] LABS: Calcium 8.1 mg/dL (8.6-10.8)
[2017-03-31] MEDS: Insulin LISPRO 300 UNITS/3 ML VIAL SQ SCH ×5 (04:00→19:51)
[2017-03-31 04:22] LABS: Potassium 4.6 mEq/L (3.5-4.5)
[2017-03-31] MEDS: Insulin Human Regular 100 UNIT in 0.9 % Sodium Chloride 100 ML IVC SCH (08:03)
[2017-03-31] MEDS: Renal Vitamin 1 MG CAPSULE PO SCH (08:07)
[2017-03-31] MEDS: Gabapentin 300 MG CAPSULE PO SCH (08:07)
[2017-03-31] MEDS: Pantoprazole 40 MG VIAL IVP SCH ×2 (08:07→19:50)
[2017-03-31] MEDS: Calcium Acetate 667 MG CAPSULE PO SCH ×3 (08:07→18:10)
[2017-03-31] MEDS: Isosorbide MONOnitrate (24 HR) 60 MG TAB.ER.24H PO SCH (08:08)
[2017-03-31] MEDS: *HR* OxyCODONE Immed Rel 15 MG TABLET PO PRN (08:14)
[2017-03-31] MEDS ORDERED: 0.9 % Sodium Chloride 250 ML IVC PRN (08:35)
--- NOTE | 2017-03-31 11:14 | Gastroenterology Consult Note ---
<Kamar Rivera - Last Filed: 03/31/17 11:11> Date of Encounter: 03/31/17 Time of Encounter: 10:45 - Assessment and plan (1) GI bleed Current Visit: Yes Status: Acute Assessment and plan: EGD 02/28 with no source of bleeding, colonoscopy 03/01 showed blood in sigmoid colon. She was then transferred to [facility] and underwent bleeding scan, repeat EGD, repeat Hgb colonoscopy and no source of bleeding was found. She is to complete capsule endoscopy at [place] this month, but is requesting to have the capsule endoscopy completed at [place]. Will plan for outpatient capsule endoscopy. Qualifiers: GI bleed type/associated pathology: unspecified gastrointestinal hemorrhage type Qualified Code(s): K92.2 - Gastrointestinal hemorrhage, unspecified (2) Anemia Current Visit: Yes Status: Chronic Assessment and plan: Continue to monitor CBC and transfuse PRBC as needed. Plan for capsule endoscopy as outpatient. Qualifiers: Anemia type: unspecified type Qualified Code(s): D64.9 - Anemia, unspecified (3) ESRD (end stage renal disease) Current Visit: No Status: Chronic - Time Spent With Patient Total time spent is greater than 50% in coordination of care (as documented) at patient's floor/unit and/or counseling patient: GI History of Present Illness - Data of Consult Patient: known to practice within the last 3 years Consult date: 03/31/17 Requesting Physician: Ke De Santiago MD - Consult Narrative Reason for consult: GI bleed History of present illness: Ms. Moffett is a 71 year old female with PMHx of CAD s/p heart catheterization on 02/13/17 with placement of 3 stents, DM, ESRD, HTN, HLD who presented with LLQ cramping and 4 episodes of BRBPR. She was recently admitted for GI bleeding, EGD with no source of bleeding, colonoscopy showed blood in sigmoid colon. She was transferred to [facility] and underwent bleeding scan, upper endoscopy, and colonoscopy and no source of bleeding was found. She is to undergo a capsule endoscopy later on this month. CT of abdomen was performed which negative for any acute intra-abdominal abnormalities. Plavix was held, but was restarted 03/28 since she had 3 cardiac stents placed one month ago and his high risk for cardiac events. Hgb on admission was 9.8 and today Hgb 9.6. Procedures: EGD 02/28/2017 Dr. Morton: LA Grade A reflux esophagitis, gastritis Colonoscopy 03/01/2017 Dr. Morton: Blood in sigmoid colon, internal hemorrhoids NSAIDs: Anticoagulation: Plavix. Past Med Surg Social Fam HX - Past Medical History Medical history: coronary artery disease, diabetes, dialysis, hyperlipidemia, hypertension, renal disease, thyroid disease Psychiatric history: anxiety, depression - Past Surgical History Surgical History: hysterectomy (Partial), orthopedic, other (Back surgery), other, vascular surgery - Social History Smoking Status: Never smoker Smokeless Tobacco Status: No Alcohol use: none Drug use: none - Family History Mother Living Status: Hx Family Cardiac Disorders: Yes (CAD) Father Living Status: Cause of : Colon Cancer Hx Family Cancer: Yes (Colon) Hx Family Endocrine Disorder: Yes (DM) Brother Living Status: Hx Family Cancer: Yes (Colon) Hx Family Endocrine Disorder: Yes (DM) Sister Living Status: Hx Family Cardiac Disorders: Yes Hx Family Cancer: Yes (Cervical) Hx Family Endocrine Disorder: Yes (DM) - Gastrointestinal Gastrointestinal: Present: as per HPI - Constitutional Constitutional: as per HPI - EENT Eyes: as per HPI Ears: Present: as per HPI Nose, mouth and throat: Present: as per HPI - Cardiovascular Cardiovascular ROS: Present: as per HPI - Respiratory Respiratory IM: Present: as per HPI - Genitourinary Genitourinary: Absent: change in color, Urinary frequency - Neurological ROS Neurological GI: Present: as per HPI - Hematologic/Lymphatic Hematologic/Lymphatic pediatric: Present: as per HPI - Musculoskeletal Musculoskeletal ROS GI: Present: as per HPI - Integumentary Integumentary GI: Present: as per HPI - Psychiatric ROS Psychiatric GI: Present: as per HPI - Endocrine Endocrine IM: Present: as per HPI - Constitutional Vitals: Temp Pulse Resp BP Pulse Ox 97.6 F 59 14 108/50 99 03/31/17 07:48 03/31/17 07:48 03/31/17 07:48 03/31/17 07:48 03/31/17 07:48 General appearance: Present: cooperative, A&O X 3, no acute distress, answers questions appropriately - Head Head exam: Present: atraumatic, normocephalic - Eye Eye exam: Present: normal appearance, sclera anicteric - ENT ENT exam: Present: mucous membranes dry - Neck Neck exam general surgery: Present: normal inspection, trachea midline - Respiratory Respiratory exam: Present: decreased breath sounds, CTAB - Cardiovascular Cardiovascular exam: Present: RRR, +S1, +S2 - GI/Abdominal GI/Abdominal exam: Present: soft, tenderness (lower abdomen), no peritoneal signs. Absent: distended, firm, guarding - Rectal Rectal exam: Present: deferred - Extremities Exam Extremities exam: Present: warm - Neurological Exam Neurological exam: Present: no focal deficits - Psychiatric Psychiatric exam: Present: normal affect, normal mood - Skin Skin exam: Present: dry, intact, normal color, warm Results - Labs CBC & Chem 7: 03/31/17 02:56 03/31/17 02:56 Labs: Last Result Calcium 8.1 mg/dL (8.6-10.8) L 03/31/17 02:56 Triglycerides 229 mg/dL (< 150) H 03/27/17 02:38 Stool Occult Blood Positive (Negative) A 03/26/17 21:16 Entire Visit Hgb 9.6 g/dL (11.5-15.4) L D 03/31/17 02:56 Hct 28.7 % (35.3-44.9) L 03/31/17 02:56 PT 9.3 Seconds (9.4-12.1) L 03/27/17 02:38 Total Bilirubin 0.4 mg/dL (0.2-1.2) 03/27/17 02:38 AST 20 Units/L (5-34) 03/27/17 02:38 ALT 20 Units/L (0-55) 03/27/17 02:38 Amylase 184 Units/L (25-125) H 03/26/17 08:56 Lipase 295 Units/L (8-78) H 03/26/17 08:56 - ABG ABG results: ABG ABG pH 7.29 pH Units (7.32-7.45) L 03/28/17 08:03 ABG pCO2 39 mmHg (35-45) 03/28/17 08:03 ABG pO2 69 mmHg (85-104) L 03/28/17 08:03 ABG O2 Saturation 91 % (95-98) L 03/28/17 08:03 PT/INR, D-dimer PT 9.3 Seconds (9.4-12.1) L 03/27/17 02:38 Consult Discharge Plan - Plan Referrals: Hugo Mercedes MD [Primary Care Provider] - 04/08/17 2:00 pm () <HamzahsylwiaDorie - Last Filed: 03/31/17 14:29> Date of Encounter: 03/31/17 Time of Encounter: 14:00 - Time Spent With Patient Total time spent is greater than 50% in coordination of care (as documented) at patient's floor/unit and/or counseling patient: GI History of Present Illness - Data of Consult Requesting Physician: Ke De Santiago MD - Consult Narrative History of present illness: Ms. Moffett is a 71 year old female - Constitutional Vitals: Temp Pulse Resp BP Pulse Ox 97.3 F L 59 18 104/52 99 03/31/17 09:50 03/31/17 07:48 03/31/17 09:50 03/31/17 10:20 03/31/17 07:48 Results - Labs CBC & Chem 7: 03/31/17 02:56 03/31/17 02:56 Labs: Last Result Calcium 8.1 mg/dL (8.6-10.8) L 03/31/17 02:56 Triglycerides 229 mg/dL (< 150) H 03/27/17 02:38 Stool Occult Blood Positive (Negative) A 03/26/17 21:16 Entire Visit Hgb 9.6 g/dL (11.5-15.4) L D 03/31/17 02:56 Hct 28.7 % (35.3-44.9) L 03/31/17 02:56 PT 9.3 Seconds (9.4-12.1) L 03/27/17 02:38 Total Bilirubin 0.4 mg/dL (0.2-1.2) 03/27/17 02:38 AST 20 Units/L (5-34) 03/27/17 02:38 ALT 20 Units/L (0-55) 03/27/17 02:38 Amylase 184 Units/L (25-125) H 03/26/17 08:56 Lipase 295 Units/L (8-78) H 03/26/17 08:56 - ABG ABG results: ABG ABG pH 7.29 pH Units (7.32-7.45) L 03/28/17 08:03 ABG pCO2 39 mmHg (35-45) 03/28/17 08:03 ABG pO2 69 mmHg (85-104) L 03/28/17 08:03 ABG O2 Saturation 91 % (95-98) L 03/28/17 08:03 PT/INR, D-dimer PT 9.3 Seconds (9.4-12.1) L 03/27/17 02:38 - Attending Attestation I examined this patient and my medical decision-making was reviewed with the Resident Physician. I agree with the documented findings, disposition and treatment plan as described except to the extent set forth below. pT with recurrent lower GI bleed unknown source. Workup [facility] and [facility] has been negative. aT this point patient is not bleeding anymore hemoglobin is stable and plan is for capsule endoscopy as an outpatient
--- NOTE | 2017-03-31 11:52 | Nephrology Progress Note ---
Date of Encounter: 03/31/17 Time of Encounter: 11:49 - Assessment and Plan (1) Anemia in ESRD (end-stage renal disease) Current Visit: No Status: Chronic (2) Diabetes mellitus Current Visit: No Status: Chronic Qualifiers: Diabetes mellitus type: type 2 Diabetes mellitus complication status: with unspecified complications Diabetes mellitus fdc insulin use: with fdc use Qualified Code(s): E11.8 - Type 2 diabetes mellitus with unspecified complications; Z79.4 - penitentiary (current) use of insulin (3) ESRD (end stage renal disease) on dialysis Current Visit: No Status: Chronic HD MWF Renal diet. Adjust medications for renal function. (4) GI bleed Current Visit: Yes Status: Acute Qualifiers: GI bleed type/associated pathology: unspecified gastrointestinal hemorrhage type Qualified Code(s): K92.2 - Gastrointestinal hemorrhage, unspecified (5) Hypoglycemia Current Visit: No Status: Acute (6) Vertigo Current Visit: Yes Status: Acute Subjective Principal diagnosis: ESRD Interval history: Patient seen on dialysis. She is complaining about feeling dizzy since Friday. She states it gets worse with head movement. She denies a headache or blurred vision. She has not seen blood in her stool since Friday. Objective - Vital Signs Vital signs: Vital Signs Temp Pulse Resp BP Pulse Ox 03/31/17 07:48 97.6 F 59 14 108/50 99 03/31/17 03:37 98.4 F 52 18 94/48 99 03/30/17 23:20 98.2 F 58 16 110/54 96 03/30/17 21:04 98 F 59 18 96/42 98 03/30/17 21:02 59 03/30/17 15:05 98.1 F 56 20 88/57 98 Intake and Output 03/30/17 03/31/17 03/31/17 23:59 07:59 15:59 Intake Total 120 / 120 Balance 120 / 120 Intake: Oral 120 / 120 Other: Meal Breakfast Percent of Meal Consumed 60% Weight 70.2 kg Blood Glucose* 398 96 105 Patient Weight 03/31/17 23:59 Weight 70.2 kg - General Appearance General appearance: Present: well-developed, well-nourished EENT: Present: ATNC Neck: Present: supple Respiratory: Present: clear Cardiology: Present: regular rate, regular rhythm Integumentary: Present: warm and dry Neurologic: Present: alert and oriented x3 Musculoskeletal: Present: no cyanosis Psychiatric: Present: mood/affect appropriate - Lab 03/31/17 02:56 03/31/17 02:56 Most recent lab results ABG pH 7.29 pH Units (7.32-7.45) L 03/28/17 08:03 ABG pCO2 39 mmHg (35-45) 03/28/17 08:03 ABG pO2 69 mmHg (85-104) L 03/28/17 08:03 ABG HCO3 19 mEq/L (21-27) L 03/28/17 08:03 ABG O2 Saturation 91 % (95-98) L 03/28/17 08:03 Calcium 8.1 mg/dL (8.6-10.8) L 03/31/17 02:56 Phosphorus 3.8 mg/dL (2.3-4.7) 03/27/17 02:38 Magnesium 2.0 mg/dL (1.6-2.6) 03/27/17 02:38 Consult Discharge Plan - Plan Referrals: Hugo Mercedes MD [Primary Care Provider] - 04/08/17 2:00 pm ()
[2017-03-31] MEDS: amLODIPine 5 MG TABLET PO SCH (15:38)
[2017-03-31] MEDS: Metoprolol XL (24 HR) Succ 50 MG TAB.ER.24H PO SCH (15:38)
[2017-03-31] MEDS ORDERED: *HR* LORazepam 0.5 MG TABLET PO ONE (15:55)
[2017-03-31] MEDS ORDERED: *HR* Dextrose 50 % in Water (Syg) 50 ML SYRINGE IVP PRN (17:56)
[2017-03-31] MEDS ORDERED: 0.9 % Sodium Chloride 2,000 ML ONE (18:46)
[2017-03-31] MEDS: Insulin DETEMIR 100 UNIT/ML X5UNITS SQ SCH (19:51)
[2017-04-01] MEDS: Insulin LISPRO 300 UNITS/3 ML VIAL SQ SCH ×6 (00:29→22:18)
[2017-04-01] MEDS: hydrALAZINE 25 MG TABLET PO SCH ×3 (00:31→16:56)
[2017-04-01] MEDS: Vancomycin Oral Soln 250 MG/5 ML UDC PO SCH ×5 (01:48→20:48)
--- NOTE | 2017-04-01 06:28 | Internal Med Progress Note ---
Date of Encounter: 03/31/17 Time of Encounter: 18:01 - Assessment and plan (1) GI bleed Current Visit: Yes Status: Resolved Assessment and plan: She has a history of GI bleed and underwent bleeding scan upper endoscopy colonoscopy recently at [place] no source of bleeding was found. She was sent to [place] and again no source was found. Patient has remained stable, Plavix restarted 03/28 since since she had 3 cardiac stents placed one month ago and his high risk for cardiac events. Hemoglobin stable. GI evaluated patient, okay for outpatient workup. Qualifiers: GI bleed type/associated pathology: unspecified gastrointestinal hemorrhage type Qualified Code(s): K92.2 - Gastrointestinal hemorrhage, unspecified (2) Diabetes mellitus with ketosis Current Visit: Yes Status: Acute Assessment and plan: Likely starvation ketosis vs DKA. She has complaints of dizziness and malaise. Patient has AG is borderline elevated at 13, hypoglycemic episodes with hyperglycemic episodes, and ketones increased again. Will search for possible underlying cause such as infection. Will do general lab orders for infection. Restart insulin drip at low dose 0.1 u/kg (3) ESRD (end stage renal disease) on dialysis Current Visit: No Status: Chronic Assessment and plan: Regular dialysis schedule. (4) Uncontrolled type 2 diabetes mellitus with insulin therapy Current Visit: No Status: Acute Assessment and plan: Brittle diabetic Patient states prior to admission, insulin pump never worked. Patient does not seem to need any urgent colonoscopy so will advance her diet because she is severely hypoglycemic. 03/28: patient became hyperglycemic and ketotic, likely DKA vs starvation ketosis. She was transferred to . Continue insulin drip and close monitoring. 03/29: Patient now on sq levemir and sliding scale. glucose runs in 100s-300s currently. Will only adjust insulin if absolutely needed, as she can get hypo and hyperglycemic very easily. Serum ketones improved but still present. Continue current insuling regimine and repeat ketone since still present in serum. (5) Dizziness Current Visit: Yes Status: Acute Assessment and plan: Hemoglobin is stable, no signs of active bleed, and hemodynamically stable. This is less likely acute blood loss. Clinically sounds more so as a vertigo or Meniere's disease process. Will give small dose of Phenergan as needed. Consult PT for evaluation and for Claudia's maneuver. If this was to be Meniere' s disease, salt restriction would be intial treatment and she is currently on a renal diet. Phenergan not effective. She takes Ativan PO 0.5 mg BID at home. Resuming this medication might help her symptoms. If it does not, we will try meclizine. PT consult to do Claudia's maneuver Friday. Could be acute illness related. (6) CAD (coronary artery disease) Current Visit: No Status: Chronic Assessment and plan: Plavix restarted as she has had recent stents in February. Qualifiers: Coronary Disease-Associated Artery/Lesion type: [place] artery [place] vs. transplanted heart: [place] heart Associated angina: without angina Qualified Code(s): I25.10 - Atherosclerotic heart disease of [place] coronary artery without angina pectoris - Subjective Interval history: 03/27: Has had episodes of hypoglycemia after arriving to patient's room. She is NPO because of LGIB. She has not used her insulin pump in several weeks, she is using Levemir 10 units daily. She was still hypoglycemic after arrival to the floor, received q amp d50. She is hemodynamically stable, H&H with no acute drop, no signs of acute bleed. Less likely for emergent colonoscopy to be done today so we advanced her diet so fluids can be completely held to avoid continuing hypoglycemia. 03/28: remained hemodynamically stable, H&H stable overnight. She did have elevated glucose during night time and was given 10 units levemir and covered with 7 units of Humalog. Called by nursing that glucose in AM was 581 and AG was 20. Stat ABG ordered showing metabolic acidosis with bicarb 19 and ketones >2. She is fluid overloaded as ESRD patient so no more than 250 cc bolus was given. In order to tighten glycemic control, she was transferred to to be placed on insulin drip. 03/29: Glucose improved, ketones still present but decreased. No signs of active bleed. Had a slight amount of blood in a BM. Does admit to dizziness as she started sitting up today. She admits to nausea and vertigo. Denies any emesis. 03/30 Still having vertigo. Low dose Phenergan IV was given without any help. Resumed patient's home dose Ativan 0.5 mg BID 03/31: Patient still nauseated. Ketone level slight increased again. - Constitutional Vitals: Temp Pulse Resp BP Pulse Ox 98.4 F 67 14 134/55 97 04/01/17 03:19 04/01/17 06:03 04/01/17 06:03 04/01/17 03:19 04/01/17 06:03 General appearance: Present: A&O X 3, answers questions appropriately Exam: CVS: RRR Lungs: course breath sounds throughout, no w/r/r Abd: soft, non-distended, + TTP lower abdominal quadrants. Normal bowel sounds , no rebound rigidity Ext: trace bipedal edema Internal Medicine: Result - Labs CBC & Chem 7: 03/31/17 02:56 03/31/17 02:56 - ABG Interpretation ABG results: ABG ABG pH 7.29 pH Units (7.32-7.45) L 03/28/17 08:03 ABG pCO2 39 mmHg (35-45) 03/28/17 08:03 ABG pO2 69 mmHg (85-104) L 03/28/17 08:03 ABG O2 Saturation 91 % (95-98) L 03/28/17 08:03 PT/INR, D-dimer PT 9.3 Seconds (9.4-12.1) L 03/27/17 02:38 - Impressions Impressions Chest X-Ray 03/31/17 18:08 IMPRESSION: Bilateral pleural effusions with bibasilar airspace disease atelectasis and/or pneumonia. The presence of some septal lines within the lung bases with possibility of at least a component of edema. D/ / Brunilda Concepcion Cha, MD / Brunilda Concepcion Cha, MD Interpreting Provider: Brunilda Concepcion Cha, MD - VTE Documentation of Mechanical Device: Intermittent pneumatic compression device Consult Discharge Plan - Plan Referrals: Hugo Mercedes MD [Primary Care Provider] - 04/08/17 2:00 pm ()
[2017-04-01 08:39] LABS: Basophils % 0.4 %; Eosinophils # 0.2 K/mcL (0.0-0.6); Eosinophils % 1.8 %; Hematocrit 29.6 % (35.3-44.9); Hemoglobin 9.4 g/dL (11.5-15.4); Immature Granulocytes % 0.3 % (0-4); Lymphocytes # 2.5 K/mcL (0.6-4.6); Lymphocytes % 26.5 %; Mean Corpuscular HGB Conc 31.8 g/dL (31.6-35.5); Mean Corpuscular Hemoglobin 33.1 pg (28.0-33.3); Mean Corpuscular Volume 104.2 fL (83.0-100.0); Mean Platelet Volume 11.1 fL (9.4-12.4); Monocytes # 1.1 K/mcL (0.0-1.3); Monocytes % 11.7 %; Neutrophils # 5.5 K/mcL (1.6-8.9); Platelet Count 256 K/mcL (140-400); Red Blood Count 2.84 M/mcL (3.82-4.97); Red Cell Distribution Width 16.4 % (11.5-14.5); Segmented Neutrophils % 59.3 %
[2017-04-01] MEDS: Isosorbide MONOnitrate (24 HR) 60 MG TAB.ER.24H PO SCH (08:44)
[2017-04-01] MEDS: Metoprolol XL (24 HR) Succ 50 MG TAB.ER.24H PO SCH (08:44)
[2017-04-01] MEDS: Renal Vitamin 1 MG CAPSULE PO SCH (08:44)
[2017-04-01] MEDS: amLODIPine 5 MG TABLET PO SCH (08:44)
[2017-04-01] MEDS: Calcium Acetate 667 MG CAPSULE PO SCH ×3 (08:44→16:56)
[2017-04-01] MEDS: Pantoprazole 40 MG VIAL IVP SCH ×2 (08:44→20:48)
[2017-04-01] MEDS: Gabapentin 300 MG CAPSULE PO SCH (08:45)
[2017-04-01] MEDS: *HR* OxyCODONE Immed Rel 15 MG TABLET PO PRN ×2 (08:45→20:48)
[2017-04-01 08:53] LABS: Potassium 4.2 mEq/L (3.5-4.5)
--- NOTE | 2017-04-01 11:30 | Nephrology Progress Note ---
Date of Encounter: 04/01/17 Time of Encounter: 11:28 - Assessment and Plan (1) ESRD (end stage renal disease) on dialysis Current Visit: No Status: Chronic Plan on HD tomorrow Continue renal diet and strict I/Os Avoid nephrotoxins if possible (2) Diabetes mellitus Current Visit: No Status: Chronic per primary team Qualifiers: Diabetes mellitus type: type 2 Diabetes mellitus complication status: with kidney complications Diabetes mellitus complication detail: with chronic kidney disease Diabetes mellitus senior care insulin use: with senior care use Chronic kidney disease stage: on chronic dialysis Qualified Code(s): E11.22 - Type 2 diabetes mellitus with diabetic chronic kidney disease; N18.6 - End stage renal disease; N18.6 - End stage renal disease; N18.6 - End stage renal disease; N18.6 - End stage renal disease; Z79.4 - snf (current) use of insulin; Z79.4 - snf (current) use of insulin; Z79.4 - snf (current ) use of insulin; Z79.4 - snf (current) use of insulin; Z99.2 - Dependence on renal dialysis; Z99.2 - Dependence on renal dialysis; Z99.2 - Dependence on renal dialysis; Z99.2 - Dependence on renal dialysis (3) GI bleed Current Visit: Yes Status: Resolved per GI team Qualifiers: GI bleed type/associated pathology: unspecified gastrointestinal hemorrhage type Qualified Code(s): K92.2 - Gastrointestinal hemorrhage, unspecified Subjective Principal diagnosis: ESRD Interval history: Patient seen and examined. at bedside. Patient states she is feeling better. Objective - Vital Signs Vital signs: Vital Signs Temp Pulse Resp BP Pulse Ox 04/01/17 11:11 97.8 F 65 15 124/54 96 04/01/17 08:25 16 98 04/01/17 07:18 97.5 F L 68 16 131/57 98 04/01/17 06:03 67 14 97 04/01/17 03:19 98.4 F 67 14 134/55 97 04/01/17 00:35 67 16 99 04/01/17 00:27 97.8 F 64 16 131/53 99 03/31/17 21:23 75 17 95 03/31/17 21:02 98.0 F 73 17 135/65 95 03/31/17 15:59 98.4 F 70 18 127/46 96 03/31/17 13:10 98.1 F 20 134/60 03/31/17 12:50 129/56 03/31/17 12:35 115/63 03/31/17 12:05 103/56 03/31/17 11:35 97/53 Intake and Output 03/31/17 04/01/17 04/01/17 23:59 07:59 15:59 Intake Total 60 / 60 80 / 80 Output Total 0 / 0 Balance 60 / 60 0 / 0 80 / 80 Intake: Oral 60 / 60 80 / 80 Output: Urine 0 / 0 Other: Meal Dinner Breakfast Percent of Meal Consumed 0% 50% Stool Size Large Copious Stool Consistency loose loose liquid liquid Stool Characteristics [place] Stool Color Brown Brown # Bowel Movements 2 1 1 Blood Glucose* 460 92 136 - General Appearance General appearance: Present: well-developed, well-nourished, obese EENT: Present: ATNC, mucous membranes moist, hearing intact, vision intact Neck: Present: supple Respiratory: Present: clear Cardiology: Present: no edema, normal S1, normal S2 Dialysis Vascular Access: Arteriovenous Fistula Gastrointestinal: Present: no tenderness, no guarding Integumentary: Present: warm and dry Neurologic: Present: alert and oriented x3 Psychiatric: Present: mood/affect appropriate, cooperative - Lab 04/01/17 07:41 04/01/17 07:41 Most recent lab results ABG pH 7.29 pH Units (7.32-7.45) L 03/28/17 08:03 ABG pCO2 39 mmHg (35-45) 03/28/17 08:03 ABG pO2 69 mmHg (85-104) L 03/28/17 08:03 ABG HCO3 19 mEq/L (21-27) L 03/28/17 08:03 ABG O2 Saturation 91 % (95-98) L 03/28/17 08:03 Calcium 8.0 mg/dL (8.6-10.8) L 04/01/17 07:41 Phosphorus 3.8 mg/dL (2.3-4.7) 03/27/17 02:38 Magnesium 2.0 mg/dL (1.6-2.6) 03/27/17 02:38 - VTE Documentation of Mechanical Device: Intermittent pneumatic compression device Consult Discharge Plan - Plan Referrals: Hugo Mercedes MD [Primary Care Provider] - 04/08/17 2:00 pm ()
--- NOTE | 2017-04-01 13:01 | Internal Med Progress Note ---
Date of Encounter: 04/01/17 Time of Encounter: 12:56 - Assessment and plan (1) Clostridium difficile diarrhea Current Visit: Yes Status: Acute Assessment and plan: Developed diarrhea during this hospitalization. Stool C. difficile toxin positive. Has been started on oral vancomycin, continue the same. Contact precautions. (2) GI bleed Current Visit: Yes Status: Acute Assessment and plan: Presented with recurrent bright red bleeding per rectum. Previous notes document that patient has had previous workup including EGD and colonoscopy at our hospital and at [place], that revealed no active bleeding or acute abnormality. Has been evaluated by GI during this admission, recommend outpatient capsule endoscopy. Hemoglobin is currently stable, continue to monitor. Qualifiers: GI bleed type/associated pathology: unspecified gastrointestinal hemorrhage type Qualified Code(s): K92.2 - Gastrointestinal hemorrhage, unspecified (3) Vertigo Current Visit: Yes Status: Acute Assessment and plan: Developed dizziness and vertigo while in the hospital. Continue when necessary meclizine, start when necessary Ativan. Check MRI brain. Likely benign positional vertigo versus vestibular causes. Fall precautions. (4) Hyperlipidemia Current Visit: Yes Status: Chronic Qualifiers: Hyperlipidemia type: unspecified Qualified Code(s): E78.5 - Hyperlipidemia , unspecified (5) Anemia Current Visit: Yes Status: Chronic Assessment and plan: At baseline. Anemia of chronic disease. Qualifiers: Anemia type: unspecified type Qualified Code(s): D64.9 - Anemia, unspecified (6) Uncontrolled type 2 diabetes mellitus with insulin therapy Current Visit: Yes Status: Chronic Assessment and plan: Noted to have fluctuating blood sugars while in hospital. On insulin infusion pump as an outpatient, which was just replaced with a new battery at home. Continue Accu-Chek blood glucose monitoring with sliding scale insulin. Diabetic diet. (7) Hypothyroidism Current Visit: Yes Status: Chronic Assessment and plan: Continue levothyroxin. Qualifiers: Hypothyroidism type: unspecified Qualified Code(s): E03.9 - Hypothyroidism , unspecified (8) ESRD (end stage renal disease) Current Visit: Yes Status: Chronic Assessment and plan: Nephrology on board for hemodialysis needs, patient receiving regular hemodialysis sessions. (9) CAD (coronary artery disease) Current Visit: Yes Status: Chronic Qualifiers: Coronary Disease-Associated Artery/Lesion type: [place] artery [place] vs. transplanted heart: [place] heart Associated angina: without angina Qualified Code(s): I25.10 - Atherosclerotic heart disease of [place] coronary artery without angina pectoris - Subjective Interval history: Feels dizzy and has vertigo and nausea; no vomiting, fever/chills, headache, blurred vision; had HD yesterday; - Constitutional Vitals: Temp Pulse Resp BP Pulse Ox 97.8 F 66 15 124/54 96 04/01/17 11:11 04/01/17 11:28 04/01/17 11:11 04/01/17 11:11 04/01/17 11:28 General appearance: Present: A&O X 3, answers questions appropriately - Respiratory Respiratory exam: Present: CTAB. Absent: accessory muscle use, rales, rhonchi, wheezes - Cardiovascular Cardiovascular exam: Present: RRR, +S1, +S2. Absent: diastolic murmur, gallop, rubs, systolic murmur - GI/Abdominal GI/Abdominal exam: Present: normal bowel sounds, soft, no peritoneal signs. Absent: distended, tenderness - Extremities Exam Extremities exam: Present: full ROM, warm, radial pulses palpable and symmetrical. Absent: calf tenderness, cyanotic, pedal edema - Neurological Exam Neurological exam: Present: CN II-XII intact, oriented X3, no focal deficits. Absent: pronater drift, facial droop, speech deficit Internal Medicine: Result - Labs CBC & Chem 7: 04/02/17 04:34 04/02/17 10:53 Labs: Short CBC 04/01/17 Range/Units 07:41 WBC 9.3 (4.3-11.1) K/mcL Hgb 9.4 L (11.5-15.4) g/dL Hct 29.6 L (35.3-44.9) % Plt Count 256 (140-400) K/mcL Neutrophils # 5.5 (1.6-8.9) K/mcL BMP 04/01/17 07:41 Sodium 136 Potassium 4.2 Chloride 98 Carbon Dioxide 30 H BUN 36 H D Creatinine 6.00 H Glucose 78 Calcium 8.0 L - ABG Interpretation ABG results: ABG ABG pH 7.29 pH Units (7.32-7.45) L 03/28/17 08:03 ABG pCO2 39 mmHg (35-45) 03/28/17 08:03 ABG pO2 69 mmHg (85-104) L 03/28/17 08:03 ABG O2 Saturation 91 % (95-98) L 03/28/17 08:03 PT/INR, D-dimer PT 9.3 Seconds (9.4-12.1) L 03/27/17 02:38 - Impressions Impressions Chest X-Ray 03/31/17 18:08 IMPRESSION: Bilateral pleural effusions with bibasilar airspace disease atelectasis and/or pneumonia. The presence of some septal lines within the lung bases with possibility of at least a component of edema. D/ / Brunilda Concepcion Cha, MD / Brunilda Concepcion Cha, MD Interpreting Provider: Brunilda Concepcion Cha, MD - VTE Documentation of Mechanical Device: Intermittent pneumatic compression device Consult Discharge Plan - Plan Instructions: Gastrointestinal Bleeding (DC) Referrals: Hugo Mercedes MD [Primary Care Provider] - 04/08/17 2:00 pm ()
[2017-04-01 19:05] LABS: Calcium 8.2 mg/dL (8.6-10.8); Potassium 4.3 mEq/L (3.5-4.5)
[2017-04-01] MEDS: *HR* LORazepam 0.5 MG TABLET PO PRN (20:02)
[2017-04-01] MEDS: Insulin DETEMIR 100 UNIT/ML X5UNITS SQ SCH (22:17)
[2017-04-02] MEDS: Insulin LISPRO 300 UNITS/3 ML VIAL SQ SCH ×4 (00:57→15:47)
[2017-04-02] MEDS: hydrALAZINE 25 MG TABLET PO SCH ×3 (00:57→16:08)
[2017-04-02] MEDS: *HR* Dextrose 50 % in Water (Syg) 50 ML SYRINGE IVP PRN (04:28)
[2017-04-02 05:16] LABS: Basophils # 0.1 K/mcL (0.0-0.2); Basophils % 0.6 %; Eosinophils # 0.1 K/mcL (0.0-0.6); Eosinophils % 1.4 %; Hematocrit 26.7 % (35.3-44.9); Hemoglobin 8.4 g/dL (11.5-15.4); Immature Granulocytes % 0.3 % (0-4); Lymphocytes # 2.7 K/mcL (0.6-4.6); Lymphocytes % 27.5 %; Mean Corpuscular HGB Conc 31.5 g/dL (31.6-35.5); Mean Corpuscular Hemoglobin 33.2 pg (28.0-33.3); Mean Corpuscular Volume 105.5 fL (83.0-100.0); Mean Platelet Volume 10.8 fL (9.4-12.4); Monocytes % 10.3 %; Neutrophils # 5.8 K/mcL (1.6-8.9); Platelet Count 249 K/mcL (140-400); Red Blood Count 2.53 M/mcL (3.82-4.97); Segmented Neutrophils % 59.9 %
[2017-04-02 05:33] LABS: Calcium 7.6 mg/dL (8.6-10.8); Potassium 3.9 mEq/L (3.5-4.5)
[2017-04-02] MEDS: *HR* OxyCODONE Immed Rel 15 MG TABLET PO PRN (06:20)
[2017-04-02] MEDS ORDERED: 0.9 % Sodium Chloride 250 ML IVC PRN (07:53)
[2017-04-02] MEDS: Acetaminophen 325 MG TABLET PO PRN (08:43)
[2017-04-02] MEDS: Renal Vitamin 1 MG CAPSULE PO SCH (08:43)
[2017-04-02] MEDS: Gabapentin 300 MG CAPSULE PO SCH (08:44)
[2017-04-02] MEDS: Calcium Acetate 667 MG CAPSULE PO SCH ×2 (08:44→15:56)
[2017-04-02] MEDS: *HR* LORazepam 0.5 MG TABLET PO PRN (08:44)
[2017-04-02] MEDS: Vancomycin Oral Soln 250 MG/5 ML UDC PO SCH ×3 (08:45→15:56)
[2017-04-02] MEDS: Pantoprazole 40 MG VIAL IVP SCH (08:45)
[2017-04-02 11:25] LABS: Calcium 8.1 mg/dL (8.6-10.8); Potassium 4.6 mEq/L (3.5-4.5)
[2017-04-02 15:46] VITALS: BP 138/76
[2017-04-02] MEDS: Isosorbide MONOnitrate (24 HR) 60 MG TAB.ER.24H PO SCH (16:06)
[2017-04-02] MEDS: Metoprolol XL (24 HR) Succ 50 MG TAB.ER.24H PO SCH (16:07)
[2017-04-02] MEDS: amLODIPine 5 MG TABLET PO SCH (16:07)
--- NOTE | 2017-04-02 16:41 | Discharge Summary ---
Date of Encounter: 05/02/17 Time of Encounter: 16:39 - Discharge Diagnosis (1) Clostridium difficile diarrhea Priority: Primary Status: Acute (2) GI bleed Priority: Primary Status: Acute Qualifiers: GI bleed type/associated pathology: unspecified gastrointestinal hemorrhage type Qualified Code(s): K92.2 - Gastrointestinal hemorrhage, unspecified (3) Vertigo Priority: Primary Status: Acute (4) Hyperlipidemia Priority: Secondary Status: Chronic Qualifiers: Hyperlipidemia type: unspecified Qualified Code(s): E78.5 - Hyperlipidemia , unspecified (5) Anemia Priority: Secondary Status: Chronic Qualifiers: Anemia type: unspecified type Qualified Code(s): D64.9 - Anemia, unspecified (6) Uncontrolled type 2 diabetes mellitus with insulin therapy Priority: Secondary Status: Chronic (7) Hypothyroidism Priority: Secondary Status: Chronic Qualifiers: Hypothyroidism type: unspecified Qualified Code(s): E03.9 - Hypothyroidism , unspecified (8) ESRD (end stage renal disease) Priority: Secondary Status: Chronic (9) CAD (coronary artery disease) Priority: Secondary Status: Chronic Qualifiers: Coronary Disease-Associated Artery/Lesion type: [place] artery [place] vs. transplanted heart: [place] heart Associated angina: without angina Qualified Code(s): I25.10 - Atherosclerotic heart disease of [place] coronary artery without angina pectoris - Discharge Medications Prescriptions: Vancomycin Oral Soln [Vancocin] 125 mg PO QID 12 Days [facility] [place] Home Medications: Levothyroxine Sodium [Synthroid] 200 mcg PO DAILY 02/08/16 [History] amLODIPine [Norvasc] 10 mg PO DAILY 02/14/16 [History] Atorvastatin [Lipitor] 40 mg PO DAILY 05/26/16 [History] Calcium Acetate [Phos-LO] 1,334 mg PO TIDWM 05/26/16 [History] Duloxetine HCl [Cymbalta] 30 mg PO DAILY 05/26/16 [History] Ergocalciferol (VITAMIN D2) [Vitamin D2] 50,000 unit PO WE 05/26/16 [History] Gabapentin [Neurontin] 300 mg PO DAILY 05/26/16 [History] Hydralazine HCl 50 mg PO Q8H 05/26/16 [History] LORazepam [Ativan] 0.5 - 1 mg PO BID PRN 05/26/16 [History] Metoprolol XL (24 HR) Succ [Toprol Xl] 50 mg PO DAILY 05/26/16 [History] Renal Vitamin [Renal Caps Softgel] 1 mg PO DAILY 05/26/16 [History] Allopurinol [Zyloprim 300 MG] 300 mg PO DAILY 05/27/16 [History] Cinacalcet [Sensipar] 30 mg PO DAILY 01/06/17 [History] Insulin Glargine [Lantus] 10 unit SQ DAILY 02/11/17 [History] Clopidogrel [Plavix] 75 mg PO DAILY 02/27/17 [History] Isosorbide MONOnitrate (24 HR) [Imdur] 60 mg PO DAILY tab.er.24h 03/02/17 [Rx] Pantoprazole [Protonix] 40 mg IVP BID vial 03/02/17 [Rx] Losartan Potassium [Cozaar] 50 mg PO DAILY 03/26/17 [History] Oxycodone HCl 15 mg PO TID 03/26/17 [History] Vancomycin Oral Soln [Vancocin] 125 mg PO QID 12 Days [facility] 04/02/17 [Rx] Allergies/Adverse Reactions: 3 Allergy/AdvReac Type Severity Reaction Status Date / Time IVP DYE AdvReac See Uncoded 03/26/17 09:56 Comments ivp dye AdvReac See Uncoded 03/26/17 09:56 Comments Procedures/tests Complete & Pending: Procedures Performed prior 72 hours Category Date Time Status MR head/brain wo con [MR] Routine MRI 04/01/17 12:55 Completed Date of admission: 03/26/17 12:54 Primary care physician: Hugo Mercedes MD Consults: 03/26/17 14:45 Consult to Dialysis [CONS] ONCE 03/28/17 08:30 Consult to Dialysis [CONS] ONCE 03/28/17 09:28 Consult for Pharmacy Education [CONS] Routine Reason for Consult: Uncontrolled DM Call Completed: No 03/29/17 13:52 Consult to Physical Therapy [CONS] Routine Comment: Evaluate, develop and implement POC Reason for Consult: Claudia maneuver, eval for vertigo 03/31/17 08:45 Consult to Dialysis [CONS] ONCE 04/02/17 08:00 Consult to Dialysis [CONS] ONCE Discharging clinician: Beverley Menjivar Anticipated date of discharge: 04/02/17 - Patient Status Disposition: Home Health Service Condition: Fair Functional capacity at discharge: independent ambulation Overall status at discharge: patient is progressing back to baseline - Discharge Instructions Instructions: Gastrointestinal Bleeding (DC) Follow Up With: Hugo Mercedes MD [Primary Care Provider] - 04/08/17 2:00 pm () Additional Instructions: F/up with GI in 2-3 weeks for capsule endoscopy - Diet and Activity Activity: resume usual activities as tolerated, wear oxygen at all times Diet: diabetic diet, low fat, low cholesterol, low salt diet, other (renal diet) Hospital course: Ms. Moffett is a 71 year old female with multiple medical problems including ESRD on hemodialysis, who was initially admitted with bright red bleeding per rectum. Patient has had recurrent episodes of rectal bleeding in the past and has been evaluated by GI at our hospital and also at [facility] and underwent EGD and colonoscopy twice with no source of bleeding identified. She was recommended to have capsule endoscopy done as an outpatient. Patient was again evaluated by GI during this admission and recommended the same. Hemoglobin remained stable and she had no further episodes of bleeding since admission. She developed vertigo and dizziness during this hospitalization, which is likely benign positional vertigo was worse vestibular etiology. MRI brain showed no acute abnormality. She gradually responded to when necessary meclizine and Ativan. Patient also had uncontrolled blood sugars during this hospitalization. She is noted to be on insulin infusion pump at home, which could not be used during this admission. She also developed diarrhea during this hospitalization, stool Clostridium difficile toxin was positive and she was started on oral vancomycin, tolerated well. Her diarrhea is currently improving. She is being discharged to complete a 14 day course of oral vancomycin. She is currently medically stable for discharge with outpatient follow-up. - Time Spent with Patient Total time spent providing and/or coordinating discharge services: Greater than 30 minutes (45 min) - Constitutional Vitals: Temp Pulse Resp BP Pulse Ox 98.3 F 89 16 138/76 98 04/02/17 08:08 04/02/17 15:43 04/02/17 15:43 04/02/17 15:43 04/02/17 15:43 General appearance: Present: A&O X 3 (appears tired), answers questions appropriately - Respiratory Respiratory exam: Present: CTAB. Absent: accessory muscle use, rales, rhonchi, wheezes - VTE Documentation of Mechanical Device: Intermittent pneumatic compression device
--- NOTE | 2017-04-02 16:43 | Physician Discharge Referral ---
Home Health/Hosp Referral Info Transfer to: Home Health Attending Provider: Beverley Menjivar Provider in Charge Post Discharge: PCP - Diagnosis (1) Clostridium difficile diarrhea Priority: Primary Status: Acute (2) GI bleed Priority: Primary Status: Acute (3) Vertigo Priority: Primary Status: Acute (4) Hyperlipidemia Priority: Secondary Status: Chronic (5) Anemia Priority: Secondary Status: Chronic (6) Uncontrolled type 2 diabetes mellitus with insulin therapy Priority: Secondary Status: Chronic (7) Hypothyroidism Priority: Secondary Status: Chronic (8) ESRD (end stage renal disease) Priority: Secondary Status: Chronic (9) CAD (coronary artery disease) Priority: Secondary Status: Chronic - Respiratory Orders Oxygen / L per min (2L/min via NC) Smoking Cessation: Smoking cessation has been advised. For more information, call the [employer] Tobacco Quit Line at 2-707-PHGD-NOW. - Diet/Nutrition Diet/Nutrition Orders: No Added Salt (RICHARD), Renal, Cardiac, No Concentrated Sweets (diabetic) - Activity Activity Orders: Ambulate, Walker - Services Needed Following services are medically necessary services: Nursing, Physical Therapy, Occupational Therapy - Transfer Medications Prescriptions: Vancomycin Oral Soln [Vancocin] 125 mg PO QID 12 [place] [facility] [place] Medications: Levothyroxine Sodium [Synthroid] 200 mcg PO DAILY 02/08/16 [History] amLODIPine [Norvasc] 10 mg PO DAILY 02/14/16 [History] Atorvastatin [Lipitor] 40 mg PO DAILY 05/26/16 [History] Calcium Acetate [Phos-LO] 1,334 mg PO TIDWM 05/26/16 [History] Duloxetine HCl [Cymbalta] 30 mg PO DAILY 05/26/16 [History] Ergocalciferol (VITAMIN D2) [Vitamin D2] 50,000 unit PO WE 05/26/16 [History] Gabapentin [Neurontin] 300 mg PO DAILY 05/26/16 [History] Hydralazine HCl 50 mg PO Q8H 05/26/16 [History] LORazepam [Ativan] 0.5 - 1 mg PO BID PRN 05/26/16 [History] Metoprolol XL (24 HR) Succ [Toprol Xl] 50 mg PO DAILY 05/26/16 [History] Renal Vitamin [Renal Caps Softgel] 1 mg PO DAILY 05/26/16 [History] Allopurinol [Zyloprim 300 MG] 300 mg PO DAILY 05/27/16 [History] Cinacalcet [Sensipar] 30 mg PO DAILY 01/06/17 [History] Insulin Glargine [Lantus] 10 unit SQ DAILY 02/11/17 [History] Clopidogrel [Plavix] 75 mg PO DAILY 02/27/17 [History] Isosorbide MONOnitrate (24 HR) [Imdur] 60 mg PO DAILY tab.er.24h 03/02/17 [Rx] Pantoprazole [Protonix] 40 mg IVP BID vial 03/02/17 [Rx] Losartan Potassium [Cozaar] 50 mg PO DAILY 03/26/17 [History] Oxycodone HCl 15 mg PO TID 03/26/17 [History] Vancomycin Oral Soln [Vancocin] 125 mg PO QID 12 Days udc 04/02/17 [Rx] Allergies/Adverse Reactions: 3 Allergy/AdvReac Type Severity Reaction Status Date / Time IVP DYE AdvReac See Uncoded 03/26/17 09:56 Comments ivp dye AdvReac See Uncoded 03/26/17 09:56 Comments Certification: Further, I certify that my clinical findings support that this patient is homebound (i.e. absences from home require considerable and taxing effort and are for medical reasons or sabianist services or infrequently or short duration when for other reasons) because: Homebound Reason: Patient requires assistance of a person or device to safely leave home, Leaving home requires considerable and taxing effort due to condition Attestation: My signature below is to certify that this patient is under my care and that I, or nurse practitioner, or a physician's museum assistant working with me, has a face-to -face encounter with this patient.
[2017-04-03 15:08] LABS: Mycoplasma pneumoniae IgG 0.05 U/L (<=0.09)
== END 2017-04-02 17:30 | disposition home health service (06) | DRG 377 ==
LOC: 2ANU 08:20 → EMEROO 08:20 → 2ANU 11:37 → SUATTDRO 12:54 → 2ANU 13:05 → 2NNU 03-28 10:44
PROVIDERS: ADMIT Internal Medicine; ATTEND Internal Medicine

== ENCOUNTER 2017-04-05 01:42 | Inpatient (IN) ==
[2017-04-05] MEDS ORDERED: 0.9 % Sodium Chloride 500 ML IVC ONE (02:47)
--- NOTE | 2017-04-05 02:47 | Emergency Department Note ---
Disposition Clinical Impression: GI bleed Qualifiers: GI bleed type/associated pathology: unspecified gastrointestinal hemorrhage type Qualified Code(s): K92.2 - Gastrointestinal hemorrhage, unspecified Disposition: Admitted As Inpatient Condition: Fair General Adult HPI - General Chief complaint: ED GI Bleed Stated complaint: rectal bleed Time Seen by Provider: 04/05/17 02:09 Source: patient Limitations: no limitations Nursing Notes Reviewed: Yes Vital Signs Reviewed: Yes - History of Present Illness HPI Narrative: Patient with significant past medical history of diabetes and dialysis who sees Dr. Louise and has dialysis Friday, Friday, Friday. Patient presents for evaluation of rectal bleeding that started earlier today. This will patient was recently admitted for GI bleed that resolved on its own. Her initial studies were negative and she was scheduled to have a video follow-through study performed. Patient's abdominal pain today has been followed by maroon- colored stools followed by bright red blood. Patient states that she has had multiple episodes of this throughout the day. Pain Scale: 6 - Related Data Home Medications Medication Instructions Recorded Confirmed Levothyroxine Sodium [Synthroid] 200 mcg PO DAILY 02/08/16 03/26/17 amLODIPine [Norvasc] 10 mg PO DAILY 02/14/16 03/26/17 Atorvastatin [Lipitor] 40 mg PO DAILY 05/26/16 03/26/17 Calcium Acetate [Phos-LO] 1,334 mg PO TIDWM 05/26/16 03/26/17 Duloxetine HCl [Cymbalta] 30 mg PO DAILY 05/26/16 03/26/17 Ergocalciferol (VITAMIN D2) 50,000 unit PO WE 05/26/16 03/26/17 [Vitamin D2] Gabapentin [Neurontin] 300 mg PO DAILY 05/26/16 03/26/17 Hydralazine HCl 50 mg PO Q8H 05/26/16 03/26/17 LORazepam [Ativan] 0.5 - 1 mg PO BID PRN 05/26/16 03/26/17 Metoprolol XL (24 HR) Succ [Toprol 50 mg PO DAILY 05/26/16 03/26/17 Xl] Renal Vitamin [Renal Caps Softgel] 1 mg PO DAILY 05/26/16 03/26/17 Allopurinol [Zyloprim 300 MG] 300 mg PO DAILY 05/27/16 03/26/17 Cinacalcet [Sensipar] 30 mg PO DAILY 01/06/17 03/26/17 Insulin Glargine [Lantus] 10 unit SQ DAILY 02/11/17 03/26/17 Clopidogrel [Plavix] 75 mg PO DAILY 02/27/17 03/26/17 Losartan Potassium [Cozaar] 50 mg PO DAILY 03/26/17 03/26/17 Oxycodone HCl 15 mg PO TID 03/26/17 03/26/17 Previous Rx's Medication Instructions Recorded Isosorbide MONOnitrate (24 HR) 60 mg PO DAILY tab.er.24h 03/02/17 [Imdur] Pantoprazole [Protonix] 40 mg IVP BID vial 03/02/17 Vancomycin Oral Soln [Vancocin] 125 mg PO QID 12 Days udc 04/02/17 Allergies Allergy/AdvReac Type Severity Reaction Status Date / Time IVP DYE AdvReac See Uncoded 03/26/17 09:56 Comments ivp dye AdvReac See Uncoded 03/26/17 09:56 Comments All systems ED: reviewed and negative except as stated. Constitutional: Denies: fever, chills Cardiovascular: Denies: chest pain, syncope Respiratory: Denies: cough, dyspnea Gastrointestinal: Reports: abdominal pain, melena. Denies: nausea, vomiting Musculoskeletal: Reports: back pain Endocrine: Reports: fatigue Past Medical History - Past Medical History Medical history: Reports: coronary artery disease, diabetes, dialysis, hyperlipidemia, hypertension, renal disease, thyroid disease Surgical history: Reports: hysterectomy (Partial), orthopedic, other (Back surgery), other, vascular surgery Psychiatric history: Reports: anxiety, depression - Social History Smoking Status: Never smoker Smokeless Tobacco Status: No Alcohol use: Reports: none Drug use: Reports: none Physical Exam General: Well appearing, nontoxic, no acute distress Head: Normocephalic Atraumatic Eyes: PERRL, EOMI ENT: Airway patent, no stridor Neck: supple, no meningismus Chest: Lungs clear to auscultation bilateral Cardiac: Regular rate and rhythm, no murmurs, rubs or gallops Abdomen: soft, nontender, nondistended; no guarding, rebound, or tenderness to percussion : Blood within her depends. Musculoskeletal: Calves symmetric, nontender, no palpable cord Skin: No rash, normal skin tone Neuro: Alert and Oriented to person, place, and time; No focal deficit, CN 2-12 symmetric and intact - General Limitations: no limitations General appearance: alert, in no apparent distress Course Course Narrative: Patient with recent GI bleed. Initial workup at [place] as well as [facility] been negative. Patient scheduled for video endoscopy here at [place]. Patient will need further investigation to GI bleed source. - Reevaluation(s) Reevaluation #1: Patient with initial melanotic stools. Patiently to be given Protonix and placed on Protonix drip. - Consultations Consultation #1: Discussed with Dr. Sesay. Patient accepted for admission. Vital Signs Temperature 98.2 F 04/05/17 01:43 Pulse Rate 70 04/05/17 01:43 Respiratory Rate 16 04/05/17 01:43 Blood Pressure 167/88 04/05/17 01:43 O2 Sat by Pulse Oximetry 100 04/05/17 01:43 Temperature 98.4 F 04/05/17 07:25 Pulse Rate 77 04/05/17 07:25 Respiratory Rate 16 04/05/17 07:25 Blood Pressure 106/46 04/05/17 07:25 O2 Sat by Pulse Oximetry 93 04/05/17 07:25 Oxygen Delivery Oxygen Delivery Room Air Medical Decision Making - Lab Data Result diagrams: 04/05/17 06:13 04/05/17 02:40 Lab Results 04/05/17 04/05/17 04/05/17 Range/Units 02:40 02:40 02:40 WBC 11.0 (4.3-11.1) K/mcL RBC 3.31 L (3.82-4.97) M/mcL Hgb 11.0 L D (11.5-15.4) g/dL Hct 33.8 L (35.3-44.9) % MCV 102.1 H (83.0-100.0) fL MCH 33.2 (28.0-33.3) pg MCHC 32.5 (31.6-35.5) g/dL RDW 15.4 H (11.5-14.5) % Plt Count 372 (140-400) K/mcL MPV 11.0 (9.4-12.4) fL Immature Gran % 0.5 (0-4) % Seg Neutrophils % 69.8 % Lymphocytes % 17.9 % Monocytes % 9.6 % Eosinophils % 1.7 % Basophils % 0.5 % Neutrophils # 7.7 (1.6-8.9) K/mcL Lymphocytes # 2.0 (0.6-4.6) K/mcL Monocytes # 1.1 (0.0-1.3) K/mcL Eosinophils # 0.2 (0.0-0.6) K/mcL Basophils # 0.1 (0.0-0.2) K/mcL PT 10.1 (9.4-12.1) Seconds INR 0.9 Sodium 133 L (136-145) mEq/L Potassium 5.0 H (3.5-4.5) mEq/L Chloride 95 L (98-109) mEq/L Carbon Dioxide 18 L (19-29) mEq/L BUN 52 H D (7-20) mg/dL Creatinine 7.73 H (0.57-1.11) mg/dL Est GFR ( Amer) 6 L (> 60) Est GFR (Non-Af Amer) 5 L (> 60) BUN/Creatinine Ratio 7 (6-26) Glucose 366 H (70-99) mg/dL Calculated Osmolality 305 H (280-300) Lactic Acid (0.5-2.2) mmol/L Calcium 9.3 (8.6-10.8) mg/dL Troponin I (0-0.03) ng/mL Lipase 46 (8-78) Units/L Blood Type Antibody Screen 04/05/17 04/05/17 04/05/17 Range/Units 02:40 02:40 03:12 WBC (4.3-11.1) K/mcL RBC (3.82-4.97) M/mcL Hgb (11.5-15.4) g/dL Hct (35.3-44.9) % MCV (83.0-100.0) fL MCH (28.0-33.3) pg MCHC (31.6-35.5) g/dL RDW (11.5-14.5) % Plt Count (140-400) K/mcL MPV (9.4-12.4) fL Immature Gran % (0-4) % Seg Neutrophils % % Lymphocytes % % Monocytes % % Eosinophils % % Basophils % % Neutrophils # (1.6-8.9) K/mcL Lymphocytes # (0.6-4.6) K/mcL Monocytes # (0.0-1.3) K/mcL Eosinophils # (0.0-0.6) K/mcL Basophils # (0.0-0.2) K/mcL PT (9.4-12.1) Seconds INR Sodium (136-145) mEq/L Potassium (3.5-4.5) mEq/L Chloride (98-109) mEq/L Carbon Dioxide (19-29) mEq/L BUN (7-20) mg/dL Creatinine (0.57-1.11) mg/dL Est GFR ( Amer) (> 60) Est GFR (Non-Af Amer) (> 60) BUN/Creatinine Ratio (6-26) Glucose (70-99) mg/dL Calculated Osmolality (280-300) Lactic Acid 2.8 H (0.5-2.2) mmol/L Calcium (8.6-10.8) mg/dL Troponin I 0.07 H* (0-0.03) ng/mL Lipase (8-78) Units/L Blood Type A POSITIVE Antibody Screen NEGATIVE
[2017-04-05 02:55] LABS: Basophils # 0.1 K/mcL (0.0-0.2); Basophils % 0.5 %; Eosinophils # 0.2 K/mcL (0.0-0.6); Eosinophils % 1.7 %; Hematocrit 33.8 % (35.3-44.9); Immature Granulocytes % 0.5 % (0-4); Lymphocytes % 17.9 %; Mean Corpuscular HGB Conc 32.5 g/dL (31.6-35.5); Mean Corpuscular Hemoglobin 33.2 pg (28.0-33.3); Mean Corpuscular Volume 102.1 fL (83.0-100.0); Monocytes # 1.1 K/mcL (0.0-1.3); Monocytes % 9.6 %; Neutrophils # 7.7 K/mcL (1.6-8.9); Platelet Count 372 K/mcL (140-400); Red Blood Count 3.31 M/mcL (3.82-4.97); Red Cell Distribution Width 15.4 % (11.5-14.5); Segmented Neutrophils % 69.8 %
[2017-04-05 03:00] LABS: INR 0.9; Prothrombin Time 10.1 Seconds (9.4-12.1)
[2017-04-05 03:10] LABS: Calcium 9.3 mg/dL (8.6-10.8)
[2017-04-05] MEDS ORDERED: Ondansetron 4 MG/2 ML VIAL IVP ONE (03:33)
[2017-04-05] MEDS ORDERED: *HR* HYDROmorphone (PF) 1 MG/ML SYRINGE IVP ONE ×2 (03:33→04:34)
[2017-04-05] MEDS ORDERED: Pantoprazole 80 MG in Water for inj. (sterile) 10 ML IVP ONE (04:43)
[2017-04-05] MEDS ORDERED: Pantoprazole 80 MG in 0.9 % Sodium Chloride 250 ML IVC SCH (04:45)
--- NOTE | 2017-04-05 05:09 | Emergency Department Note ---
START Narrative - START START: I examined this patient and my medical decision-making was reviewed with the Resident Physician. I agree with the documented findings, disposition and treatment plan as described except to the extent set forth below. 71-year-old female presents to the ER with rectal bleeding. Recent GI bleed. Patient is scheduled to have an outpatient video enteroscopy. Patient's labs are stable for her. Patient will be admitted for observation.
[2017-04-05] MEDS ORDERED: Acetaminophen 325 MG TABLET PO PRN (05:17)
[2017-04-05] MEDS ORDERED: Naloxone 0.4 MG/ML INJ IVP PRN (05:17)
--- NOTE | 2017-04-05 05:36 | Internal Med History&Physical ---
Date of Encounter: 04/05/17 Time of Encounter: 05:27 Assessment and Plan (1) LGI bleed Current visit: Yes Status: Acute 1. Will monitor hgb/hct. 2. Will transfuse if necessary. 3. Consult GI for assistance with further workup. 4. Will place patient on PPI BID. (2) ESRD (end stage renal disease) on dialysis Current visit: No Status: Chronic 1. Consult nephrology for HD needs and further renal guidance. (3) IDDM (insulin dependent diabetes mellitus) Current visit: No Status: Chronic 1. Will place on SSI and home basal insulin when meds verified. (4) CAD (coronary artery disease) Current visit: No Status: Chronic 1. Continue home meds once verified and as appropriate. 2. Continue Plavix/Aspirin given recent PC/stents. 3. Will cycle troponins and EKG's given elevated troponin. Patient has no symptoms presently. Qualifiers: Coronary Disease-Associated Artery/Lesion type: [place] artery [place] vs. transplanted heart: [place] heart Associated angina: angina presence unspecified Qualified Code(s): I25.10 - Atherosclerotic heart disease of [place] coronary artery without angina pectoris (5) DVT prophylaxis Current visit: No Status: Acute 1. EPCD's. Internal Medicine - H&P: HPI Chief complaint: GI bleed Admitted From: Emergency Dept Plans for Post Hospital Care: Home History of present illness: Ms. Moffett is a 71 year old female who presents to the ER tonight with sudden onset of having bloody and maroon stools this evening. Patient was recently hospitalized for GI bleed and was just discharged home 3 days ago. Since then, she has been doing well and had normal bowel movements. 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 She therefore came to the ER where she had a workup revealing mild anemia and negative abdominal CT scan findings. However, given her symptoms and GI bleeding, she was admitted to the hospitalist service. Upon my assessment of the patient in the ER, she is lying in bed in no distress. She has some mild abdominal cramping but otherwise negative. Her first bout of GI bleeding was about 1 1/2months ago. She had recent EGD colonoscopy in late February revealing no source for GI bleeding. She is due to have Capsule Endoscopy in the near future, but she has not yet been scheduled. Patient and her note that her GI bleeding started shortly after she was prescribed Aspirin and Plavix by Cardiology. She Had 3 Drug-Eluting Stents placed roughly 1 1/2 months ago for her coronary artery disease. Past Med Surg Social Fam HX - Past Medical History Attestation: Yes The following information was validated with the patient. Source: patient, old records reviewed, obtained from family Medical history: coronary artery disease, diabetes, dialysis, hyperlipidemia, hypertension, renal disease, thyroid disease Psychiatric history: anxiety, depression - Past Surgical History Surgical History: hysterectomy (Partial), orthopedic, other (Back surgery), other, vascular surgery - Social History Smoking Status: Never smoker Smokeless Tobacco Status: No Alcohol use: none Drug use: none Current living situation: Home, With Family - Family History Mother Living Status: Hx Family Cardiac Disorders: Yes (CAD) Father Living Status: Hx Family Cancer: Yes (Colon) Hx Family Endocrine Disorder: Yes (DM) Brother Living Status: Hx Family Cancer: Yes (Colon) Hx Family Endocrine Disorder: Yes (DM) Sister Living Status: Hx Family Cardiac Disorders: Yes Hx Family Cancer: Yes (Cervical) Hx Family Endocrine Disorder: Yes (DM) Internal Medicine - H&P: Meds Levothyroxine Sodium [Synthroid] 200 mcg PO DAILY 02/08/16 [History] amLODIPine [Norvasc] 10 mg PO DAILY 02/14/16 [History] Atorvastatin [Lipitor] 40 mg PO DAILY 05/26/16 [History] Calcium Acetate [Phos-LO] 1,334 mg PO TIDWM 05/26/16 [History] Duloxetine HCl [Cymbalta] 30 mg PO DAILY 05/26/16 [History] Ergocalciferol (VITAMIN D2) [Vitamin D2] 50,000 unit PO WE 05/26/16 [History] Gabapentin [Neurontin] 300 mg PO DAILY 05/26/16 [History] Hydralazine HCl 50 mg PO Q8H 05/26/16 [History] LORazepam [Ativan] 0.5 - 1 mg PO BID PRN 05/26/16 [History] Metoprolol XL (24 HR) Succ [Toprol Xl] 50 mg PO DAILY 05/26/16 [History] Renal Vitamin [Renal Caps Softgel] 1 mg PO DAILY 05/26/16 [History] Allopurinol [Zyloprim 300 MG] 300 mg PO DAILY 05/27/16 [History] Cinacalcet [Sensipar] 30 mg PO DAILY 01/06/17 [History] Insulin Glargine [Lantus] 10 unit SQ DAILY 02/11/17 [History] Clopidogrel [Plavix] 75 mg PO DAILY 02/27/17 [History] Isosorbide MONOnitrate (24 HR) [Imdur] 60 mg PO DAILY tab.er.24h 03/02/17 [Rx] Pantoprazole [Protonix] 40 mg IVP BID vial 03/02/17 [Rx] Losartan Potassium [Cozaar] 50 mg PO DAILY 03/26/17 [History] Oxycodone HCl 15 mg PO TID 03/26/17 [History] Vancomycin Oral Soln [Vancocin] 125 mg PO QID 12 Days udc 04/02/17 [Rx] 3 Allergy/AdvReac Type Severity Reaction Status Date / Time IVP DYE AdvReac See Uncoded 03/26/17 09:56 Comments ivp dye AdvReac See Uncoded 03/26/17 09:56 Comments - Constitutional Constitutional: no chills, no fever(s), no night sweats - EENT Eyes: no blurry vision, no change in vision Ears: no ear pain, no tinnitus Nose, mouth and throat: no nasal congestion, no sinus pain, no sinus pressure, no sore throat - Cardiovascular Cardiovascular ROS IM: no chest pain, no dyspnea, no dyspnea on exertion, no lightheadedness, no palpitations - Respiratory Respiratory: no cough, no dyspnea, no hemoptysis, no chest congestion, no excessive phlegm production - Gastrointestinal Gastrointestinal: abdominal pain, cramping, hematochezia, no coffee ground emesis, no diarrhea, no heartburn, no hematemesis, no melena, no nausea, no vomiting - Genitourinary Genitourinary: no dysuria, no flank pain, no hematuria - Musculoskeletal Musculoskeletal ROS IM: no arthralgias, no back pain - Integumentary Integumentary IM: no rash, no jaundice - Neurological Neurological ROS: no dizziness, no focal weakness, no frequent falls, no headache(s) - Psychiatric Psychiatric: no anxiety, no depression - Endocrine Endocrine IM: no polydipsia, no polyuria - Hematologic/Lymphatic Hematologic/Lymphatic: no easy bruising - Allergic/Immunologic Allergic/Immunologic: no GI upset with certain foods - Constitutional Vitals: Temp Pulse Resp BP Pulse Ox 98.2 F 79 16 125/55 94 04/05/17 01:43 04/05/17 05:18 04/05/17 05:18 04/05/17 05:18 04/05/17 05:18 General appearance: Present: cooperative, mild distress, A&O X 3, pleasant, answers questions appropriately - Head Head exam: Present: atraumatic, normal inspection - Eye Eye exam: Present: EOMI, normal appearance, PERRL. Absent: scleral icterus Pupils: Present: normal accommodation - ENT ENT exam: Present: mucous membranes dry, normal exam, normal oropharynx - Neck Neck exam general surgery: Present: full ROM, supple. Absent: lymphadenopathy, tenderness, nuchal rigidity - Respiratory Respiratory exam: Present: CTAB. Absent: rales, respiratory distress, rhonchi, wheezes - Cardiovascular Cardiovascular exam: Present: RRR, +S1, +S2. Absent: diastolic murmur, JVD, systolic murmur - GI/Abdominal GI/Abdominal exam: Present: normal bowel sounds, tenderness (bilateral lower quadrants). Absent: guarding, hepatomegaly, mass, rebound, splenomegaly - Extremities Exam Extremities exam: Present: full ROM, warm. Absent: calf tenderness, joint swelling, tenderness - Back Exam Back exam: Absent: CVA tenderness (L), CVA tenderness (R) - Neurological Exam Neurological exam: Present: alert, CN II-XII intact, oriented X3, no focal deficits - Psychiatric Psychiatric exam: Present: anxious - Skin Skin exam: Present: dry, warm. Absent: rash Internal Med - H&P Results - Labs CBC & Chem 7: 04/05/17 02:40 04/05/17 02:40 Labs: Short CBC 04/05/17 Range/Units 02:40 WBC 11.0 (4.3-11.1) K/mcL Hgb 11.0 L D (11.5-15.4) g/dL Hct 33.8 L (35.3-44.9) % Plt Count 372 (140-400) K/mcL Neutrophils # 7.7 (1.6-8.9) K/mcL BMP 04/05/17 02:40 Sodium 133 L Potassium 5.0 H Chloride 95 L Carbon Dioxide 18 L BUN 52 H D Creatinine 7.73 H Glucose 366 H Calcium 9.3 Cardiac Enzymes 04/05/17 Range/Units 02:40 Troponin I 0.07 H* (0-0.03) ng/mL - EKG Data -: EKG Interpreted by Myself EKG shows normal: sinus rhythm - EKG Data EKG comments: 04/05/17 05:43 No acute changes - Impressions ITS Impressions Abdomen/Pelvis CT 04/05/17 02:46 IMPRESSION: No acute findings in the abdomen or pelvis. Improving bilateral pleural effusions. D/ / Chiki Valle MD / Chiki Valle MD Interpreting Provider: Chiki Valle MD - Diagnostic Studies CT scan - abdomen Additional comments: Repot reviewed -- negative
[2017-04-05] MEDS ORDERED: D5% in Water 1,000 ML IVC PRN (05:54)
[2017-04-05] MEDS ORDERED: Dextrose Gel 15 GM PO PRN ×2 (05:54)
[2017-04-05 06:19] LABS: Hematocrit 25.8 % (35.3-44.9)
[2017-04-05 06:20] LABS: Hemoglobin 8.5 g/dL (11.5-15.4)
[2017-04-05] MEDS ORDERED: Pantoprazole 40 MG VIAL IVP SCH (07:30)
[2017-04-05] MEDS ORDERED: 0.9 % Sodium Chloride 250 ML IVC PRN (07:41)
[2017-04-05] MEDS: Aspirin Enteric Coated 81 MG Tablet PO SCH (08:03)
[2017-04-05] MEDS: Insulin LISPRO 300 UNITS/3 ML VIAL SQ SCH ×3 (08:03→17:12)
[2017-04-05] MEDS: *HR* Morphine 2 MG/ML SYRINGE IVP PRN (08:05)
[2017-04-05] MEDS ORDERED: 0.9 % Sodium Chloride 2,000 ML ONE (08:08)
--- NOTE | 2017-04-05 09:44 | Gastroenterology Consult Note ---
Date of Encounter: 04/05/17 Time of Encounter: 09:43 - Time Spent With Patient Total time spent is greater than 50% in coordination of care (as documented) at patient's floor/unit and/or counseling patient: 1. Hematochezia and clots. Patient initially agreed to undergo EGD and colonoscopy but, subsequently refused despite reasoning with her. Will proceed with capsule endoscopy. Follow hemoglobin. Probable AVM etiology. 2. Anemia 3. CKD with hemodialysis 4. Morbid obesity 5. CAD on Plavix. 6. Incomplete data base. GI History of Present Illness - Data of Consult Requesting Physician: Cyrus Benz MD - Consult Narrative History of present illness: Ms. Moffett is a 71 year old female who had CKD on hemodialysis comes in with dark burgundy and BRBPR with clots. She had an EGD and colonoscopy back in February here and also in [facility] but, no etiology was determined. She was to be scheduled for capsule endoscopy as outpatient. No abdominal pain or chest pain or SOB. She is presently being dialyzed. Hemoglobin is 9.5 gm% No UGI symptoms. Past Med Surg Social Fam HX - Past Medical History Medical history: coronary artery disease, diabetes, dialysis, hyperlipidemia, hypertension, renal disease, thyroid disease Psychiatric history: anxiety, depression - Past Surgical History Surgical History: hysterectomy (Partial), orthopedic, other (Back surgery), other, vascular surgery - Social History Smoking Status: Never smoker Smokeless Tobacco Status: No Alcohol use: none Drug use: none - Family History Mother Living Status: Hx Family Cardiac Disorders: Yes (CAD) Father Living Status: Hx Family Cancer: Yes (Colon) Hx Family Endocrine Disorder: Yes (DM) Brother Living Status: Hx Family Cancer: Yes (Colon) Hx Family Endocrine Disorder: Yes (DM) Sister Living Status: Hx Family Cardiac Disorders: Yes Hx Family Cancer: Yes (Cervical) Hx Family Endocrine Disorder: Yes (DM) - Gastrointestinal Gastrointestinal: Present: bloating, hematochezia - Constitutional Constitutional: fatigue - Endocrine Endocrine IM: Present: fatigue - Constitutional Vitals: Temp Pulse Resp BP Pulse Ox 98.4 F 77 16 106/46 93 04/05/17 07:25 04/05/17 07:25 04/05/17 07:25 04/05/17 07:25 04/05/17 07:25 - Eye Eye exam: Present: EOMI, PERRL Additional comments: Pallor present Results - Labs CBC & Chem 7: 04/06/17 08:12 04/06/17 08:12 Labs: Last Result Calcium 9.3 mg/dL (8.6-10.8) 04/05/17 02:40 Troponin I 0.06 ng/mL (0-0.03) H* 04/05/17 08:43 Entire Visit Hgb 8.5 g/dL (11.5-15.4) L D 04/05/17 06:13 Hct 25.8 % (35.3-44.9) L 04/05/17 06:13 PT 10.1 Seconds (9.4-12.1) 04/05/17 02:40 Lipase 46 Units/L (8-78) 04/05/17 02:40 - ABG ABG results: PT/INR, D-dimer PT 10.1 Seconds (9.4-12.1) 04/05/17 02:40 Consult Discharge Plan - Plan Referrals: Hugo Mercedes MD [Primary Care Provider] -
[2017-04-05] MEDS: Vancomycin Oral Soln 250 MG/5 ML UDC PO SCH ×4 (09:52→20:49)
--- NOTE | 2017-04-05 10:51 | Nephrology Consult Note ---
Date of Encounter: 04/05/17 Time of Encounter: 08:55 Assessment and Plan (1) ESRD (end stage renal disease) on dialysis Status: Chronic Plan for HD today. I reviewed her run sheets and dialysis records from [facility]: last HD was on Friday at [facility]; missed HD on Friday. Mildly hyperkalemic today. Though she is grieving the loss of her sister (who was also a patient on HD), she agreed to proceed for make-up HD today (Friday) , which I recommend for clearance and volume status mgt. Next HD would tentatively be scheduled for Friday. Anemia with most likely multifactorial etiology: she has ESRD which contributes to anemia but also recent GIB. Appreciate GI team. I spent >50% of the encounter counseling the pt regarding importance of HD to avoid missed HD; nutritional mgt, volume status and etc. Thank you for consulting the [facility] service. Will follow with you. (2) GI bleed Status: Acute As per primary. Qualifiers: GI bleed type/associated pathology: unspecified gastrointestinal hemorrhage type Qualified Code(s): K92.2 - Gastrointestinal hemorrhage, unspecified (3) Hyperkalemia Status: Acute Mild. HD for clearance. (4) Anemia Status: Chronic Anemia of CKD plus other multifactorial etiologies such as the above GIB. Goal Hgb is 10-11, and may need MOR and/or IV iron during this admission. Will monitor. Qualifiers: Anemia type: iron deficiency Iron deficiency anemia type: chronic blood loss Qualified Code(s): D50.0 - Iron deficiency anemia secondary to blood loss (chronic) History of Present Illness - Reason for Consult Consult date: 04/05/17 end stage renal disease, hyperkalemia Requesting physician: Cyrus Benz - Chief Complaint ESRD, Missed HD - History of Present Illness 71 y/o very pleasant AA lady with a known pmh of ESRD on chronic HD M/W/F and IDDM with insulin pump, anemia, and et al who presented with dark melanotic stools. She last dialyzed on Friday. She missed HD as an outpatient on Friday (yesterday) because she was at her sister's . She voiced feeling increased grief and was gently crying during my interview and exam. She requested HD today (Friday). Past Med Surg Social Fam HX - Past Medical History Medical history: coronary artery disease, diabetes, dialysis, hyperlipidemia, hypertension, renal disease, thyroid disease Psychiatric history: anxiety, depression - Past Surgical History Surgical History: hysterectomy (Partial), orthopedic, other (Back surgery), other, vascular surgery - Social History Smoking Status: Never smoker Smokeless Tobacco Status: No Alcohol use: none Drug use: none - Family History Mother Living Status: Hx Family Cardiac Disorders: Yes (CAD) Father Living Status: Hx Family Cancer: Yes (Colon) Hx Family Endocrine Disorder: Yes (DM) Brother Living Status: Hx Family Cancer: Yes (Colon) Hx Family Endocrine Disorder: Yes (DM) Sister Living Status: Hx Family Cardiac Disorders: Yes Hx Family Cancer: Yes (Cervical) Hx Family Endocrine Disorder: Yes (DM) Medications and Allergies Levothyroxine Sodium [Synthroid] 200 mcg PO DAILY 02/08/16 [History] amLODIPine [Norvasc] 10 mg PO DAILY 02/14/16 [History] Atorvastatin [Lipitor] 40 mg PO DAILY 05/26/16 [History] Calcium Acetate [Phos-LO] 1,334 mg PO TIDWM 05/26/16 [History] Duloxetine HCl [Cymbalta] 30 mg PO DAILY 05/26/16 [History] Ergocalciferol (VITAMIN D2) [Vitamin D2] 50,000 unit PO WE 05/26/16 [History] Gabapentin [Neurontin] 300 mg PO DAILY 05/26/16 [History] Hydralazine HCl 50 mg PO Q8H 05/26/16 [History] LORazepam [Ativan] 0.5 - 1 mg PO BID PRN 05/26/16 [History] Metoprolol XL (24 HR) Succ [Toprol Xl] 50 mg PO DAILY 05/26/16 [History] Renal Vitamin [Renal Caps Softgel] 1 mg PO DAILY 05/26/16 [History] Allopurinol [Zyloprim 300 MG] 300 mg PO DAILY 05/27/16 [History] Cinacalcet [Sensipar] 30 mg PO DAILY 01/06/17 [History] Insulin Glargine [Lantus] 10 unit SQ DAILY 02/11/17 [History] Clopidogrel [Plavix] 75 mg PO DAILY 02/27/17 [History] Isosorbide MONOnitrate (24 HR) [Imdur] 60 mg PO DAILY tab.er.24h 03/02/17 [Rx] Losartan Potassium [Cozaar] 50 mg PO DAILY 03/26/17 [History] Oxycodone HCl 15 mg PO TID 03/26/17 [History] Vancomycin Oral Soln [Vancocin] 125 mg PO QID 12 Days udc 04/02/17 [Rx] Pantoprazole Sodium [Protonix] 40 mg PO DAILY #30 tablet. 04/08/17 [Rx] 3 Allergy/AdvReac Type Severity Reaction Status Date / Time IVP DYE AdvReac See Uncoded 03/26/17 09:56 Comments ivp dye AdvReac See Uncoded 03/26/17 09:56 Comments Review of Systems All Systems: reviewed and no additional remarkable complaints except as stated Exam - Vital Signs Vital signs: Initial Vital Signs Temp Pulse Resp BP Pulse Ox 98.2 F 70 16 167/88 100 04/05/17 01:43 04/05/17 01:43 04/05/17 01:43 04/05/17 01:43 04/05/17 01:43 Vital Signs - Last 8 Hours Temp Pulse Resp BP Pulse Ox 04/05/17 07:25 98.4 F 77 16 106/46 93 04/05/17 06:22 16 121/44 Intake and Output 04/04/17 04/05/17 04/05/17 23:59 07:59 15:59 Other: Blood Glucose* 455 - General Appearance General appearance: well-developed, well-nourished, appears started age EENT: ATNC, PERRL, mucous membranes moist Neck: supple Respiratory: clear Cardiology: edema, regular rate, regular rhythm, normal S1, normal S2 - Dialysis Access Dialysis Vascular Access: Arteriovenous Fistula thrill: Yes bruit: Yes Gastrointestinal: normoactive bowel sounds, no tenderness, no guarding Integumentary: no rash, warm and dry Neurologic: no focal deficit, no asterixis Musculoskeletal: no deformities, no erythema, no cyanosis Psychiatric: mood/affect appropriate, cooperative Results - Lab Results 04/08/17 05:04 04/08/17 05:04 Most recent lab results Calcium 9.3 mg/dL (8.6-10.8) 04/05/17 02:40 I reviewed the progress notes, labs, med lists, vitals and imaging: mild hyperkalemia and ESRD renal labs notes. Consult Discharge Plan - Plan Instructions: Pantoprazole (By mouth) Additional Instructions: Follow up with your primary care provider within one week of discharge please follow up with cardiology regarding your medications follow up with Gastroenterology outpatient for capsule endoscopy Take all meds as prescribed return to emergency department immediately if you have any signs of bleeding. Referrals: Hugo Mercedes MD [Primary Care Provider] - 04/18/17 1:00 pm Fabrizio Morton MD [Partnered Physician] - 04/09/17 Jermaine Rojas CNP [Advanced Practice Nurse] - 04/17/17 2:30 pm Justyn Jonas DO [Partnered Physician] - Prescriptions: Pantoprazole Sodium [Protonix] 40 mg PO DAILY #30 tablet.
--- NOTE | 2017-04-05 11:03 | Internal Med Progress Note ---
Date of Encounter: 04/05/17 Time of Encounter: 10:50 - Assessment and plan (1) GI bleed Current Visit: Yes Status: Acute Assessment and plan: Management oer GI Hb is stable For transfusion for Hb <7 Qualifiers: GI bleed type/associated pathology: unspecified gastrointestinal hemorrhage type Qualified Code(s): K92.2 - Gastrointestinal hemorrhage, unspecified (2) ESRD (end stage renal disease) on dialysis Current Visit: Yes Status: Chronic Assessment and plan: HD schedule per renal (3) Elevated troponin I level Current Visit: Yes Status: Acute Assessment and plan: Adynamic, stable. (4) DVT prophylaxis Current Visit: Yes Status: Acute Assessment and plan: Heparin SQ (5) Diabetes Current Visit: Yes Status: Chronic Assessment and plan: FS ACHS. SSI. 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 Normal EF. Mild LVDD, mild pUlm HTN Continue home meds Qualifiers: Congestive heart failure type: unspecified congestive heart failure type Congestive heart failure chronicity: chronic Qualified Code(s): I50.9 - Heart failure, unspecified (8) CAD (coronary artery disease) Current Visit: Yes Status: Chronic Assessment and plan: Continue Plavix/Aspirin given recent PC/stents.on 02/13/17. DAPT is recommended uninterrupted for one year Qualifiers: Coronary Disease-Associated Artery/Lesion type: [place] artery [place] vs. transplanted heart: [place] heart Associated angina: angina presence unspecified Qualified Code(s): I25.10 - Atherosclerotic heart disease of [place] coronary artery without angina pectoris - Subjective Interval history: Seen and evaluated at bedside Patient is readmitted for rectal bleed She denies new complains Hb is stable she is hemodynamically stable Discussed with Dr. Morton, he plans to repeat a colonoscoy, do a possible push enterscopy and a possible capsule endoscopy on Saturday 04/07. - Constitutional Vitals: Temp Pulse Resp BP Pulse Ox 98.4 F 77 16 106/46 93 04/05/17 07:25 04/05/17 07:25 04/05/17 07:25 04/05/17 07:25 04/05/17 07:25 General appearance: Present: cooperative, A&O X 3, pleasant, no acute distress, answers questions appropriately - Head Head exam: Present: atraumatic, normocephalic - Eye Eye exam: Present: PERRL, conjuntiva pink, sclera anicteric Pupils: Present: PERRL - Neck Neck exam general surgery: Present: supple, trachea midline. Absent: lymphadenopathy - Respiratory Respiratory exam: Present: CTAB. Absent: accessory muscle use, rales, rhonchi, wheezes - Cardiovascular Cardiovascular exam: Present: RRR, +S1, +S2. Absent: diastolic murmur, gallop, rubs, systolic murmur - GI/Abdominal GI/Abdominal exam: Present: normal bowel sounds, soft, no peritoneal signs. Absent: distended, tenderness - Extremities Exam Extremities exam: Present: warm, radial pulses palpable and symmetrical. Absent : calf tenderness, cyanotic, pedal edema - Neurological Exam Neurological exam: Present: alert, CN II-XII intact, oriented X3, no focal deficits. Absent: pronater drift, facial droop, speech deficit - Skin Skin exam: Present: dry, intact Internal Medicine: Result - Labs CBC & Chem 7: 04/05/17 06:13 04/05/17 02:40 Labs: Short CBC 04/05/17 Range/Units 06:13 Hgb 8.5 L D (11.5-15.4) g/dL Hct 25.8 L (35.3-44.9) % Cardiac Enzymes 04/05/17 Range/Units 08:43 Troponin I 0.06 H* (0-0.03) ng/mL - ABG Interpretation ABG results: PT/INR, D-dimer PT 10.1 Seconds (9.4-12.1) 04/05/17 02:40 Consult Discharge Plan - Plan Referrals: Hugo Mercedes MD [Primary Care Provider] -
[2017-04-05] MEDS: Metoprolol XL (24 HR) Succ 50 MG TAB.ER.24H PO SCH (14:13)
[2017-04-06] MEDS ORDERED: *HR* LORazepam 0.5 MG TABLET PO PRN (08:19)
[2017-04-06 08:49] LABS: Prothrombin Time 10.2 Seconds (9.4-12.1)
[2017-04-06 08:52] LABS: Activated Partial Thrombo Time 19.7 Seconds (26.0-36.0)
[2017-04-06 08:58] LABS: Albumin 2.6 g/dL (3.5-5.0); Albumin/Globulin Ratio 0.7 (1.1-2.2); Bilirubin,Total 0.5 mg/dL (0.2-1.2); Calcium 8.7 mg/dL (8.6-10.8); Globulin 3.6 g/dL (2.4-3.5); Magnesium 1.9 mg/dL (1.6-2.6); Potassium 4.5 mEq/L (3.5-4.5); Total Protein 6.2 g/dL (6.0-8.3)
[2017-04-06] MEDS ORDERED: NON-FORMULARY MEDICATION 1 EACH EACH (Insulin Glargine [Lantus] 10 UNIT) SQ SCH (09:00)
[2017-04-06 09:03] LABS: Basophils % 0.3 %; Eosinophils # 0.1 K/mcL (0.0-0.6); Eosinophils % 0.4 %; Hematocrit 32.6 % (35.3-44.9); Hemoglobin 10.5 g/dL (11.5-15.4); Immature Granulocytes % 0.9 % (0-4); Immature Platelets 3.6 % (1.1-6.1); Lymphocytes # 1.6 K/mcL (0.6-4.6); Lymphocytes % 11.3 %; Mean Corpuscular HGB Conc 32.2 g/dL (31.6-35.5); Mean Corpuscular Hemoglobin 33.8 pg (28.0-33.3); Mean Corpuscular Volume 104.8 fL (83.0-100.0); Mean Platelet Volume 11.1 fL (9.4-12.4); Monocytes # 1.1 K/mcL (0.0-1.3); Monocytes % 7.7 %; Platelet Count 289 K/mcL (140-400); Red Blood Count 3.11 M/mcL (3.82-4.97); Red Cell Distribution Width 15.2 % (11.5-14.5); Segmented Neutrophils % 79.4 %
[2017-04-06] MEDS: Insulin LISPRO 300 UNITS/3 ML VIAL SQ SCH ×5 (09:38→16:26)
[2017-04-06] MEDS: Vancomycin Oral Soln 250 MG/5 ML UDC PO SCH ×3 (09:39→18:09)
[2017-04-06] MEDS: Insulin DETEMIR 100 UNIT/ML X5UNITS SQ SCH (09:39)
[2017-04-06] MEDS: Gabapentin 300 MG CAPSULE PO SCH (09:39)
[2017-04-06] MEDS: Aspirin Enteric Coated 81 MG Tablet PO SCH (09:40)
[2017-04-06] MEDS: hydrALAZINE 25 MG TABLET PO SCH ×2 (09:40→15:45)
[2017-04-06] MEDS: Renal Vitamin 1 MG CAPSULE PO SCH (09:40)
[2017-04-06] MEDS: amLODIPine 5 MG TABLET PO SCH (09:40)
[2017-04-06] MEDS: *HR* OxyCODONE Immed Rel 15 MG TABLET PO SCH ×2 (09:40→15:38)
[2017-04-06] MEDS: Metoprolol XL (24 HR) Succ 50 MG TAB.ER.24H PO SCH (09:40)
[2017-04-06] MEDS: Isosorbide MONOnitrate (24 HR) 60 MG TAB.ER.24H PO SCH (09:40)
[2017-04-06] MEDS ORDERED: Insulin Human Regular 10 UNIT in 0.9 % Sodium Chloride 10 ML IV ONE (09:49)
--- NOTE | 2017-04-06 09:49 | Internal Med Progress Note ---
Date of Encounter: 04/06/17 Time of Encounter: 09:48 - Assessment and plan (1) GI bleed Current Visit: Yes Status: Acute Assessment and plan: Management oer GI Hb is stable For transfusion for Hb <7 Qualifiers: GI bleed type/associated pathology: unspecified gastrointestinal hemorrhage type Qualified Code(s): K92.2 - Gastrointestinal hemorrhage, unspecified (2) ESRD (end stage renal disease) on dialysis Current Visit: Yes Status: Chronic Assessment and plan: HD schedule per renal (3) Elevated troponin I level Current Visit: Yes Status: Acute Assessment and plan: Adynamic, stable. (4) DVT prophylaxis Current Visit: Yes Status: Acute Assessment and plan: Heparin SQ (5) Diabetes Current Visit: Yes Status: Chronic Assessment and plan: FS ACHS. SSI. ADA/Cardiac/Renal diet FS Uncontrolled GIven 10 U IV insulin Continue Lispro, Levemir and SSI Qualifiers: Diabetes mellitus type: type 2 Diabetes mellitus complication status: with circulatory complication Diabetes mellitus complication detail: with other circulatory complications Diabetes mellitus residential insulin use: with residential use Qualified Code(s): E11.59 - Type 2 diabetes mellitus with other circulatory complications; Z79.4 - MCC (current) use of insulin (6) Clostridium difficile diarrhea Current Visit: Yes Status: Acute Assessment and plan: Recently discharged 04/02 with po ana, continue same Patient states she still has 3 episodes of diarrhea daily Continue isolation (7) CHF (congestive heart failure) Current Visit: Yes Status: Chronic Assessment and plan: Euvolemic at this time HD as scheduled ECHO 02/18 noted. Normal EF. Mild LVDD, mild pUlm HTN Continue home meds Qualifiers: Congestive heart failure type: unspecified congestive heart failure type Congestive heart failure chronicity: chronic Qualified Code(s): I50.9 - Heart failure, unspecified (8) CAD (coronary artery disease) Current Visit: Yes Status: Chronic Assessment and plan: Continue Plavix/Aspirin given recent PC/stents.on 02/13/17. DAPT is recommended uninterrupted for one year Qualifiers: Coronary Disease-Associated Artery/Lesion type: [place] artery [place] vs. transplanted heart: [place] heart Associated angina: angina presence unspecified Qualified Code(s): I25.10 - Atherosclerotic heart disease of [place] coronary artery without angina pectoris - Subjective Interval history: Seen and evaluated at bedside Patient is readmitted for rectal bleed She denies new complains Hb is stable she is hemodynamically stable Refused intervention by GI GI note is pending HB is stable, resume home meds - Constitutional Vitals: Temp Pulse Resp BP Pulse Ox 98.3 F 68 16 133/70 84 04/06/17 06:23 04/06/17 06:23 04/06/17 06:23 04/06/17 06:23 04/06/17 06:23 General appearance: Present: cooperative, A&O X 3, pleasant, no acute distress, answers questions appropriately - Head Head exam: Present: atraumatic, normocephalic - Eye Eye exam: Present: PERRL, conjuntiva pink, sclera anicteric Pupils: Present: PERRL - Neck Neck exam general surgery: Present: supple, trachea midline. Absent: lymphadenopathy - Respiratory Respiratory exam: Present: CTAB. Absent: accessory muscle use, rales, rhonchi, wheezes - Cardiovascular Cardiovascular exam: Present: RRR, +S1, +S2. Absent: diastolic murmur, gallop, rubs, systolic murmur - GI/Abdominal GI/Abdominal exam: Present: normal bowel sounds, soft, no peritoneal signs. Absent: distended, tenderness - Extremities Exam Extremities exam: Present: warm, radial pulses palpable and symmetrical. Absent : calf tenderness, cyanotic, pedal edema - Neurological Exam Neurological exam: Present: alert, CN II-XII intact, oriented X3, no focal deficits. Absent: pronater drift, facial droop, speech deficit - Skin Skin exam: Present: dry, intact Internal Medicine: Result - Labs CBC & Chem 7: 04/06/17 08:12 04/06/17 08:12 Labs: BMP 04/06/17 08:12 Sodium 133 L Potassium 4.5 Chloride 96 L Carbon Dioxide 18 L BUN 31 H D Creatinine 5.56 H Glucose 674 H* Calcium 8.7 Cardiac Enzymes 04/05/17 Range/Units 14:22 Troponin I 0.05 H* (0-0.03) ng/mL Liver Function 04/06/17 Range/Units 08:12 Total Bilirubin 0.5 (0.2-1.2) mg/dL AST 18 (5-34) Units/L ALT 14 (0-55) Units/L Alkaline Phosphatase 141 H (38-126) Units/L Albumin 2.6 L (3.5-5.0) g/dL - ABG Interpretation ABG results: PT/INR, D-dimer PT 10.2 Seconds (9.4-12.1) 04/06/17 08:12 Consult Discharge Plan - Plan Referrals: Hugo Mercedes MD [Primary Care Provider] -
[2017-04-06] MEDS: *HR* Morphine 2 MG/ML SYRINGE IVP PRN (12:21)
[2017-04-06] MEDS: Calcium Acetate 667 MG CAPSULE PO SCH ×2 (12:21→18:09)
[2017-04-06] MEDS ORDERED: Ondansetron 4 MG/2 ML VIAL IVP PRN (13:33)
[2017-04-06] MEDS: *HR* Dextrose 50 % in Water (Syg) 50 ML SYRINGE IVP PRN (16:29)
[2017-04-06] MEDS ORDERED: D5% in Water 250 ML ONE (17:38)
[2017-04-06] MEDS ORDERED: *HR* Dextrose 50 % in Water (Syg) 50 ML SYRINGE ONE (17:42)
[2017-04-06] MEDS ORDERED: D10% in Water 500 ML IV SOLUTION IVC ONE (19:36)
[2017-04-06] MEDS ORDERED: *HR* Dextrose 50 % in Water (Syg) 50 ML SYRINGE IVP ONE (19:37)
[2017-04-07] MEDS: Vancomycin Oral Soln 250 MG/5 ML UDC PO SCH ×5 (01:30→19:49)
[2017-04-07] MEDS ORDERED: DEXTROSE 5 % IN WATER 50 ML PGGYBK.PRT IV SCH (02:00)
[2017-04-07] MEDS ORDERED: D5% in Water 1,000 ML IVC SCH (02:00)
[2017-04-07] MEDS: *HR* OxyCODONE Immed Rel 15 MG TABLET PO SCH ×4 (02:05→19:49)
[2017-04-07] MEDS: hydrALAZINE 25 MG TABLET PO SCH ×3 (02:10→15:26)
[2017-04-07] MEDS ORDERED: 0.9 % Sodium Chloride 250 ML IVC PRN (07:50)
[2017-04-07] MEDS ORDERED: 0.9 % Sodium Chloride 2,000 ML ONE (08:05)
[2017-04-07] MEDS: Calcium Acetate 667 MG CAPSULE PO SCH ×3 (08:12→16:59)
[2017-04-07 08:17] LABS: Calcium 8.1 mg/dL (8.6-10.8); Potassium 4.3 mEq/L (3.5-4.5)
[2017-04-07 08:54] LABS: Basophils # 0.1 K/mcL (0.0-0.2); Basophils % 0.5 %; Eosinophils # 0.1 K/mcL (0.0-0.6); Immature Granulocytes % 0.3 % (0-4); Lymphocytes # 2.1 K/mcL (0.6-4.6); Lymphocytes % 19.2 %; Mean Corpuscular HGB Conc 32.1 g/dL (31.6-35.5); Mean Corpuscular Hemoglobin 32.6 pg (28.0-33.3); Mean Platelet Volume 10.4 fL (9.4-12.4); Monocytes # 0.6 K/mcL (0.0-1.3); Monocytes % 5.5 %; Neutrophils # 8.1 K/mcL (1.6-8.9); Platelet Count 303 K/mcL (140-400); Red Blood Count 2.76 M/mcL (3.82-4.97); Red Cell Distribution Width 15.1 % (11.5-14.5); Segmented Neutrophils % 73.5 %
[2017-04-07 08:56] LABS: Mean Corpuscular Volume 101.4 fL (83.0-100.0)
[2017-04-07] MEDS: Insulin LISPRO 300 UNITS/3 ML VIAL SQ SCH ×6 (10:05→16:58)
--- NOTE | 2017-04-07 10:55 | Internal Med Progress Note ---
Date of Encounter: 04/07/17 Time of Encounter: 10:55 - Assessment and plan (1) GI bleed Current Visit: Yes Status: Acute Assessment and plan: Management oer GI Hb is stable For transfusion for Hb <7 Qualifiers: GI bleed type/associated pathology: unspecified gastrointestinal hemorrhage type Qualified Code(s): K92.2 - Gastrointestinal hemorrhage, unspecified (2) ESRD (end stage renal disease) on dialysis Current Visit: Yes Status: Chronic Assessment and plan: HD schedule per renal (3) Elevated troponin I level Current Visit: Yes Status: Acute Assessment and plan: Adynamic, stable. (4) DVT prophylaxis Current Visit: Yes Status: Acute Assessment and plan: Heparin SQ (5) Diabetes Current Visit: Yes Status: Chronic Assessment and plan: FS ACHS. SSI. 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 Normal EF. Mild LVDD, mild pUlm HTN Continue home meds Qualifiers: Congestive heart failure type: unspecified congestive heart failure type Congestive heart failure chronicity: chronic Qualified Code(s): I50.9 - Heart failure, unspecified (8) CAD (coronary artery disease) Current Visit: Yes Status: Chronic Assessment and plan: Continue Plavix/Aspirin given recent PC/stents.on 02/13/17. DAPT is recommended uninterrupted for one year Qualifiers: Coronary Disease-Associated Artery/Lesion type: [place] artery [place] vs. transplanted heart: [place] heart Associated angina: angina presence unspecified Qualified Code(s): I25.10 - Atherosclerotic heart disease of [place] coronary artery without angina pectoris - Subjective Interval history: Seen and evaluated at bedside Patient is readmitted for rectal bleed She denies new complains Hb is stable she is hemodynamically stable She is awaiting capsule endoscopy No new complains this morning - Constitutional Vitals: Temp Pulse Resp BP Pulse Ox 97.8 F 61 18 114/56 96 04/07/17 08:20 04/07/17 07:25 04/07/17 08:20 04/07/17 10:20 04/07/17 08:10 General appearance: Present: cooperative, A&O X 3, pleasant, no acute distress, answers questions appropriately - Head Head exam: Present: atraumatic, normocephalic - Eye Eye exam: Present: PERRL, conjuntiva pink, sclera anicteric Pupils: Present: PERRL - Neck Neck exam general surgery: Present: supple, trachea midline. Absent: lymphadenopathy - Respiratory Respiratory exam: Present: CTAB. Absent: accessory muscle use, rales, rhonchi, wheezes - Cardiovascular Cardiovascular exam: Present: RRR, +S1, +S2. Absent: diastolic murmur, gallop, rubs, systolic murmur - GI/Abdominal GI/Abdominal exam: Present: normal bowel sounds, soft, no peritoneal signs. Absent: distended, tenderness - Extremities Exam Extremities exam: Present: warm, radial pulses palpable and symmetrical. Absent : calf tenderness, cyanotic, pedal edema - Neurological Exam Neurological exam: Present: alert, CN II-XII intact, oriented X3, no focal deficits. Absent: pronater drift, facial droop, speech deficit - Skin Skin exam: Present: dry, intact Internal Medicine: Result - Labs CBC & Chem 7: 04/07/17 08:42 04/07/17 07:43 Labs: Short CBC 04/07/17 Range/Units 08:42 WBC 11.0 (4.3-11.1) K/mcL Hgb 9.0 L D (11.5-15.4) g/dL Hct 28.0 L (35.3-44.9) % Plt Count 303 (140-400) K/mcL Neutrophils # 8.1 (1.6-8.9) K/mcL BMP 04/07/17 07:43 Sodium 131 L Potassium 4.3 Chloride 96 L Carbon Dioxide 19 BUN 36 H Creatinine 6.47 H Glucose 323 H Calcium 8.1 L - ABG Interpretation ABG results: PT/INR, D-dimer PT 10.2 Seconds (9.4-12.1) 04/06/17 08:12 Consult Discharge Plan - Plan Referrals: Hugo Mercedes MD [Primary Care Provider] - 04/18/17 1:00 pm Jermaine Rojas CNP [Advanced Practice Nurse] - 04/17/17 2:30 pm
[2017-04-07] MEDS: Aspirin Enteric Coated 81 MG Tablet PO SCH (12:52)
[2017-04-07] MEDS: Renal Vitamin 1 MG CAPSULE PO SCH (12:53)
[2017-04-07] MEDS: Gabapentin 300 MG CAPSULE PO SCH (12:53)
[2017-04-07] MEDS ORDERED: Insulin DETEMIR 100 UNIT/ML X5UNITS SQ ONE (15:18)
[2017-04-07] MEDS: Metoprolol XL (24 HR) Succ 50 MG TAB.ER.24H PO SCH (15:26)
[2017-04-07] MEDS: Insulin DETEMIR 100 UNIT/ML X5UNITS SQ SCH (15:27)
[2017-04-07] MEDS: amLODIPine 5 MG TABLET PO SCH (15:27)
[2017-04-07] MEDS: Isosorbide MONOnitrate (24 HR) 60 MG TAB.ER.24H PO SCH (15:27)
--- NOTE | 2017-04-07 18:25 | Nephrology Progress Note ---
Date of Encounter: 04/07/17 Time of Encounter: 08:20 - Assessment and Plan (1) ESRD (end stage renal disease) on dialysis Status: Chronic Pt was s/e while be started in the dialysis room/[facility]. Next HD would be planned for Friday. (2) GI bleed Status: Acute As per primary Qualifiers: GI bleed type/associated pathology: unspecified gastrointestinal hemorrhage type Qualified Code(s): K92.2 - Gastrointestinal hemorrhage, unspecified (3) Hyperkalemia Status: Acute Improving with HD. Counseled her for >50% of the encounter regarding the importance of a renal diet, compliance and etc. (4) Anemia Status: Chronic See Consult note. Qualifiers: Anemia type: iron deficiency Iron deficiency anemia type: chronic blood loss Qualified Code(s): D50.0 - Iron deficiency anemia secondary to blood loss (chronic) Subjective Principal diagnosis: ESRD Interval history: Pt was s/e while on HD. She did not affirm N/V/D or uremic symptoms. No new cramping or AV access concerns were reported to me from the pt. Objective - Vital Signs Vital signs: Vital Signs Temp Pulse Resp BP Pulse Ox 04/07/17 16:30 98.6 F 68 15 131/71 99 04/07/17 14:11 108/73 04/07/17 12:31 98.3 F 66 15 96/74 99 04/07/17 12:00 97.9 F 16 131/59 04/07/17 11:50 99/50 04/07/17 11:20 111/53 04/07/17 10:50 105/39 04/07/17 10:20 114/56 04/07/17 09:50 109/56 04/07/17 09:20 106/56 04/07/17 08:50 113/56 04/07/17 08:20 97.8 F 18 115/39 04/07/17 08:10 96 04/07/17 07:25 98.8 F 61 15 103/44 97 04/07/17 03:49 98.1 F 58 14 118/51 100 04/06/17 23:35 98.2 F 56 12 104/50 98 04/06/17 21:00 97.8 F 82 14 110/61 94 04/06/17 20:06 97.4 F L 54 15 97/53 100 Intake and Output 04/07/17 04/07/17 04/07/17 07:59 15:59 23:59 Intake Total 1200 / 1200 360 / 360 Output Total 3600 / 3600 Balance -2400 / -2400 360 / 360 Intake: Oral 600 / 600 360 / 360 Intake, Rinseback and Flushes 600 / 600 Output: Urine 0 / 0 Total Dialysis (HD) Output 3600 / 3600 Other: Meal Lunch Breakfast Percent of Meal Consumed 75% Stool Size Smear Stool Consistency loose Stool Characteristics [place] Stool Color Green # Bowel Movements 1 Weight 70.1 kg Blood Glucose* 267 347 375 Hemodialysis Net Fluid Removed 3000 (mL) Patient Weight 04/07/17 23:59 Weight 70.1 kg - General Appearance Exam: General appearance: well-developed, well-nourished, appears started age EENT: ATNC, PERRL, mucous membranes moist Neck: supple Respiratory: clear Cardiology: edema, regular rate, regular rhythm, normal S1, normal S2 - Dialysis Access Dialysis Vascular Access: Arteriovenous Fistula thrill: Yes bruit: Yes Gastrointestinal: normoactive bowel sounds, no tenderness, no guarding Integumentary: no rash, warm and dry Neurologic: no focal deficit, no asterixis Musculoskeletal: no deformities, no erythema, no cyanosis Psychiatric: mood/affect appropriate, cooperative - Lab 04/08/17 05:04 04/08/17 05:04 Most recent lab results Calcium 8.1 mg/dL (8.6-10.8) L 04/07/17 07:43 Magnesium 1.9 mg/dL (1.6-2.6) 04/06/17 08:12 Consult Discharge Plan - Plan Instructions: Pantoprazole (By mouth) Additional Instructions: Follow up with your primary care provider within one week of discharge please follow up with cardiology regarding your medications follow up with Gastroenterology outpatient for capsule endoscopy Take all meds as prescribed return to emergency department immediately if you have any signs of bleeding. Referrals: Hugo Mercedes MD [Primary Care Provider] - 04/18/17 1:00 pm Fabrizio Morton MD [Partnered Physician] - 04/09/17 Jermaine Rojas CNP [Advanced Practice Nurse] - 04/17/17 2:30 pm Justyn Jonas DO [Partnered Physician] - Prescriptions: Pantoprazole Sodium [Protonix] 40 mg PO DAILY #30 tablet.
[2017-04-07] MEDS: *HR* Dextrose 50 % in Water (Syg) 50 ML SYRINGE IVP PRN (20:53)
[2017-04-08] MEDS: hydrALAZINE 25 MG TABLET PO SCH ×3 (02:51→16:08)
[2017-04-08] MEDS ORDERED: Insulin LISPRO 300 UNITS/3 ML VIAL SQ SCH (04:45)
[2017-04-08 05:35] LABS: Basophils % 0.3 %; Eosinophils # 0.1 K/mcL (0.0-0.6); Hematocrit 27.7 % (35.3-44.9); Immature Granulocytes % 0.7 % (0-4); Immature Platelets 4.3 % (1.1-6.1); Lymphocytes # 2.6 K/mcL (0.6-4.6); Mean Corpuscular HGB Conc 32.5 g/dL (31.6-35.5); Mean Corpuscular Volume 101.5 fL (83.0-100.0); Mean Platelet Volume 11.2 fL (9.4-12.4); Monocytes # 1.6 K/mcL (0.0-1.3); Monocytes % 11.8 %; Platelet Count 285 K/mcL (140-400); Red Blood Count 2.73 M/mcL (3.82-4.97); Red Cell Distribution Width 14.9 % (11.5-14.5); Segmented Neutrophils % 67.2 %
[2017-04-08 05:37] LABS: Calcium 7.8 mg/dL (8.6-10.8); Potassium 5.1 mEq/L (3.5-4.5)
[2017-04-08 05:58] LABS: Large Platelets Present (Not Present); Platelet Estimate Normal (Normal)
[2017-04-08 05:59] LABS: Anisocytosis 1+ (Not Present); Macrocytosis Present (Not Present); Poikilocytosis 1+ (Not Present)
[2017-04-08 06:00] LABS: Reactive Lymphocytes Present (Not Present); Toxic Granulation Present (Not Present)
[2017-04-08] MEDS: Vancomycin Oral Soln 250 MG/5 ML UDC PO SCH ×3 (07:43→16:05)
[2017-04-08] MEDS: amLODIPine 5 MG TABLET PO SCH (07:44)
[2017-04-08] MEDS: Metoprolol XL (24 HR) Succ 50 MG TAB.ER.24H PO SCH (07:44)
[2017-04-08] MEDS: Calcium Acetate 667 MG CAPSULE PO SCH ×3 (07:44→16:06)
[2017-04-08] MEDS: *HR* OxyCODONE Immed Rel 15 MG TABLET PO SCH ×2 (07:44→13:45)
[2017-04-08] MEDS: Renal Vitamin 1 MG CAPSULE PO SCH (07:44)
[2017-04-08] MEDS: Gabapentin 300 MG CAPSULE PO SCH (07:44)
[2017-04-08] MEDS: Aspirin Enteric Coated 81 MG Tablet PO SCH (07:44)
[2017-04-08] MEDS: Insulin LISPRO 300 UNITS/3 ML VIAL SQ SCH ×6 (07:45→16:05)
[2017-04-08] MEDS: Isosorbide MONOnitrate (24 HR) 60 MG TAB.ER.24H PO SCH (07:45)
--- NOTE | 2017-04-08 09:47 | Nephrology Progress Note ---
Date of Encounter: 04/08/17 Time of Encounter: 09:45 - Assessment and Plan (1) ESRD (end stage renal disease) on dialysis Current Visit: Yes Status: Chronic Plan for HD tomorrow Avoid nephrotoxins if possible (2) GI bleed Current Visit: Yes Status: Acute per GI team Qualifiers: GI bleed type/associated pathology: unspecified gastrointestinal hemorrhage type Qualified Code(s): K92.2 - Gastrointestinal hemorrhage, unspecified (3) IDDM (insulin dependent diabetes mellitus) Current Visit: No Status: Chronic per primary team Subjective Principal diagnosis: ESRD on dialysis, GI bleed Interval history: Patient seen and examined. Sitting up in chair; sad about her sister's recent . Objective - Vital Signs Vital signs: Vital Signs Temp Pulse Resp BP Pulse Ox 04/08/17 07:45 98.4 F 61 15 124/60 98 04/08/17 07:35 98.4 F 61 15 124/60 98 04/08/17 06:29 59 18 96 04/08/17 04:06 98.4 F 61 18 126/62 96 04/08/17 00:45 65 16 95 04/07/17 23:15 98.6 F 63 16 112/54 95 04/07/17 20:10 64 16 96 04/07/17 19:49 98.9 F 64 16 120/51 96 04/07/17 16:30 98.6 F 68 15 131/71 99 04/07/17 14:11 108/73 04/07/17 12:31 98.3 F 66 15 96/74 99 04/07/17 12:00 97.9 F 16 131/59 04/07/17 11:50 99/50 04/07/17 11:20 111/53 04/07/17 10:50 105/39 04/07/17 10:20 114/56 04/07/17 09:50 109/56 Intake and Output 04/07/17 04/08/17 04/08/17 23:59 07:59 15:59 Intake Total 360 / 360 240 / 240 150 / 150 Output Total 0 / 0 Balance 360 / 360 240 / 240 150 / 150 Intake: Oral 360 / 360 240 / 240 150 / 150 Output: Urine 0 / 0 Other: Meal Breakfast Breakfast Percent of Meal Consumed 75% 100% Stool Size Small Stool Consistency loose Stool Characteristics [place] Stool Color Green # Bowel Movements 1 Weight 66.9 kg Blood Glucose* 141 120 Patient Weight 04/08/17 23:59 Weight 66.9 kg - General Appearance General appearance: Present: well-developed, well-nourished, obese EENT: Present: ATNC, mucous membranes moist, hearing intact, vision intact Neck: Present: supple Respiratory: Present: clear Cardiology: Present: normal S1, normal S2 Dialysis Vascular Access: Arteriovenous Fistula Gastrointestinal: Present: no tenderness, no guarding, obese Integumentary: Present: warm and dry Neurologic: Present: alert and oriented x3 Psychiatric: Present: mood/affect appropriate, cooperative - Lab 04/08/17 05:04 04/08/17 05:04 Most recent lab results Calcium 7.8 mg/dL (8.6-10.8) L 04/08/17 05:04 Magnesium 1.9 mg/dL (1.6-2.6) 04/06/17 08:12 Consult Discharge Plan - Plan Referrals: Hugo Mercedes MD [Primary Care Provider] - 04/18/17 1:00 pm Jermaine Rojas CNP [Advanced Practice Nurse] - 04/17/17 2:30 pm
[2017-04-08] MEDS: Insulin DETEMIR 100 UNIT/ML X5UNITS SQ SCH (10:15)
--- NOTE | 2017-04-08 10:41 | Internal Med Progress Note ---
Addendum entered and electronically signed by Jeffrey Ambriz DO 04/08/17 11:13 : 71F evaluated at bedside. she denies nausea, vomiting, diarrhea, fever, chills, chest pain, shortness of breath. Physical Exam: general: alert and oriented x3, no acute distress CV: RRR, no murmurs, rubs, gallops Lungs: CTAB abdomen: soft, distended, tender to palpation in epigastric area Extremities: no cyanosis or edema present Original Note: <Jeffrey Ambriz - Last Filed: 04/08/17 10:39> Date of Encounter: 04/08/17 Time of Encounter: 10:40 - Assessment and plan (1) GI bleed Current Visit: Yes Status: Acute Assessment and plan: Patient came in with bloody bowel movements Initially was seen by GI and EGD was recommended but patient refused. patient has has scopes done in the past. patient has been type and screened, but no transfusions this hospitalization. Plan: Appreciate GI recs GI is attempting to do capsule endoscopy on this patient-waiting on insurance approval. NPO per GI May be transferred out of 2N to 2A Qualifiers: GI bleed type/associated pathology: unspecified gastrointestinal hemorrhage type Qualified Code(s): K92.2 - Gastrointestinal hemorrhage, unspecified (2) ESRD (end stage renal disease) Current Visit: No Status: Chronic Assessment and plan: continue with dialysis while inpatient. appreciate nephro recs (3) Elevated troponin I level Current Visit: Yes Status: Acute Assessment and plan: Adynamic, stable. chronically elevated in setting of ESRD (4) Diabetes mellitus Current Visit: No Status: Chronic Assessment and plan: continue with basal, mealtime, and sliding scale insulin continue to monitor blood glucose Qualifiers: Diabetes mellitus type: type 2 Diabetes mellitus complication status: with kidney complications Diabetes mellitus complication detail: with chronic kidney disease Diabetes mellitus detention insulin use: with director long term care use Chronic kidney disease stage: on chronic dialysis Qualified Code(s): E11.22 - Type 2 diabetes mellitus with diabetic chronic kidney disease; N18.6 - End stage renal disease; Z99.2 - Dependence on renal dialysis; Z99.2 - Dependence on renal dialysis; Z99.2 - Dependence on renal dialysis; N18.6 - End stage renal disease; N18.6 - End stage renal disease; N18.6 - End stage renal disease ; Z79.4 - terminal computer operator (current) use of insulin; Z79.4 - [facility] (current) use of insulin; Z79.4 - [facility] (current) use of insulin; Z79.4 - [facility] ( current) use of insulin; Z99.2 - Dependence on renal dialysis (5) CHF (congestive heart failure) Current Visit: Yes Status: Acute Assessment and plan: last echo 02/12/17 showed noral LV systolic function, EF 55-60%, mild concentric lVH, mild LV diastolic dysfnciton, mildly dilated RV hypokinesis, mildly dilated left atrium and right atrium, no valvular dysfunction, mild pulmonary HTN, pleural effusion noted. Qualifiers: Congestive heart failure type: diastolic Congestive heart failure chronicity: chronic Qualified Code(s): I50.32 - Chronic diastolic (congestive ) heart failure (6) CAD (coronary artery disease) Current Visit: Yes Status: Chronic Assessment and plan: cath on 02/13/17 showing triple vesel CAD; BRYNN placed to proximal LAD, mid RCA, distal circ Plan: Continue DAPT uninterrupted for one year Qualifiers: Coronary Disease-Associated Artery/Lesion type: [place] artery [place] vs. transplanted heart: [place] heart Associated angina: angina presence unspecified Qualified Code(s): I25.10 - Atherosclerotic heart disease of [place] coronary artery without angina pectoris (7) Clostridium difficile diarrhea Current Visit: Yes Status: Acute Assessment and plan: Hx of C.Diff discharged 04/02 with po vanco, Plan: continue PO vanc (8) DVT prophylaxis Current Visit: Yes Status: Acute Assessment and plan: EPCD - Constitutional Vitals: Temp Pulse Resp BP Pulse Ox 98.4 F 61 15 124/60 98 04/08/17 07:45 04/08/17 07:45 04/08/17 07:45 04/08/17 07:45 04/08/17 07:45 General appearance: Present: cooperative, A&O X 3, pleasant, no acute distress, answers questions appropriately Internal Medicine: Result - Labs CBC & Chem 7: 04/08/17 05:04 04/08/17 05:04 Labs: Short CBC 04/08/17 Range/Units 05:04 WBC 13.4 H (4.3-11.1) K/mcL Hgb 9.0 L (11.5-15.4) g/dL Hct 27.7 L (35.3-44.9) % Plt Count 285 (140-400) K/mcL Neutrophils # 9.0 H (1.6-8.9) K/mcL BMP 04/08/17 05:04 Sodium 131 L Potassium 5.1 H Chloride 98 Carbon Dioxide 16 L BUN 24 H D Creatinine 4.91 H Glucose 380 H Calcium 7.8 L - ABG Interpretation ABG results: PT/INR, D-dimer PT 10.2 Seconds (9.4-12.1) 04/06/17 08:12 Consult Discharge Plan - Plan Instructions: Pantoprazole (By mouth) Additional Instructions: Follow up with your primary care provider within one week of discharge please follow up with cardiology regarding your medications follow up with Gastroenterology outpatient for capsule endoscopy Take all meds as prescribed return to emergency department immediately if you have any signs of bleeding. Referrals: Hugo Mercedes MD [Primary Care Provider] - 04/18/17 1:00 pm Fabrizio Morton MD [Partnered Physician] - 04/09/17 Jermaine Rojas CNP [Advanced Practice Nurse] - 04/17/17 2:30 pm Justyn Jonas DO [Partnered Physician] - Prescriptions: Pantoprazole Sodium [Protonix] 40 mg PO DAILY #30 tablet. <Ayaan Rosen - Last Filed: 04/08/17 18:25> Date of Encounter: 04/08/17 - Constitutional Vitals: Temp Pulse Resp BP Pulse Ox 98.7 F 58 14 117/56 100 04/08/17 15:48 04/08/17 15:48 04/08/17 15:48 04/08/17 15:48 04/08/17 15:48 Internal Medicine: Result - Labs CBC & Chem 7: 04/08/17 05:04 04/08/17 05:04 - ABG Interpretation ABG results: PT/INR, D-dimer PT 10.2 Seconds (9.4-12.1) 04/06/17 08:12 - Attending Attestation I examined this patient and my medical decision-making was reviewed with the Resident Physician on 04/08/17. I agree with the documented findings, disposition and treatment plan as described except to the extent set forth below. Please see discharge summary of this date.
[2017-04-08] MEDS ORDERED: *HR* OxyCODONE Immed Rel 15 MG TABLET PO PRN (15:45)
--- NOTE | 2017-04-08 16:03 | Discharge Summary ---
<Jeffrey Ambriz - Last Filed: 04/08/17 15:49> Date of Encounter: 04/08/17 Time of Encounter: 15:49 - Discharge Diagnosis (1) GI bleed Priority: Primary Status: Acute Qualifiers: GI bleed type/associated pathology: unspecified gastrointestinal hemorrhage type Qualified Code(s): K92.2 - Gastrointestinal hemorrhage, unspecified (2) ESRD (end stage renal disease) Priority: Secondary Status: Chronic (3) Elevated troponin I level Priority: Secondary Status: Acute (4) Diabetes mellitus Priority: Secondary Status: Chronic Qualifiers: Diabetes mellitus type: type 2 Diabetes mellitus complication status: with kidney complications Diabetes mellitus complication detail: with chronic kidney disease Diabetes mellitus terminal block assembler insulin use: with chcf use Chronic kidney disease stage: on chronic dialysis Qualified Code(s): E11.22 - Type 2 diabetes mellitus with diabetic chronic kidney disease; N18.6 - End stage renal disease; Z99.2 - Dependence on renal dialysis; Z99.2 - Dependence on renal dialysis; Z99.2 - Dependence on renal dialysis; N18.6 - End stage renal disease; N18.6 - End stage renal disease; N18.6 - End stage renal disease ; Z79.4 - terminal block assembler (current) use of insulin; Z79.4 - terminal block assembler (current) use of insulin; Z79.4 - terminal block assembler (current) use of insulin; Z79.4 - care home ( current) use of insulin; Z99.2 - Dependence on renal dialysis (5) CHF (congestive heart failure) Priority: Secondary Status: Acute Qualifiers: Congestive heart failure type: diastolic Congestive heart failure chronicity: chronic Qualified Code(s): I50.32 - Chronic diastolic (congestive ) heart failure (6) CAD (coronary artery disease) Priority: Secondary Status: Chronic Qualifiers: Coronary Disease-Associated Artery/Lesion type: [place] artery [place] vs. transplanted heart: [place] heart Associated angina: angina presence unspecified Qualified Code(s): I25.10 - Atherosclerotic heart disease of [place] coronary artery without angina pectoris (7) Clostridium difficile diarrhea Priority: Secondary Status: Acute (8) DVT prophylaxis Priority: Secondary Status: Acute - Discharge Medications Prescriptions: Pantoprazole Sodium [Protonix] 40 mg PO DAILY #30 tablet.dr Home Medications: Levothyroxine Sodium [Synthroid] 200 mcg PO DAILY 02/08/16 [History] amLODIPine [Norvasc] 10 mg PO DAILY 02/14/16 [History] Atorvastatin [Lipitor] 40 mg PO DAILY 05/26/16 [History] Calcium Acetate [Phos-LO] 1,334 mg PO TIDWM 05/26/16 [History] Duloxetine HCl [Cymbalta] 30 mg PO DAILY 05/26/16 [History] Ergocalciferol (VITAMIN D2) [Vitamin D2] 50,000 unit PO WE 05/26/16 [History] Gabapentin [Neurontin] 300 mg PO DAILY 05/26/16 [History] Hydralazine HCl 50 mg PO Q8H 05/26/16 [History] LORazepam [Ativan] 0.5 - 1 mg PO BID PRN 05/26/16 [History] Metoprolol XL (24 HR) Succ [Toprol Xl] 50 mg PO DAILY 05/26/16 [History] Renal Vitamin [Renal Caps Softgel] 1 mg PO DAILY 05/26/16 [History] Allopurinol [Zyloprim 300 MG] 300 mg PO DAILY 05/27/16 [History] Cinacalcet [Sensipar] 30 mg PO DAILY 01/06/17 [History] Insulin Glargine [Lantus] 10 unit SQ DAILY 02/11/17 [History] Clopidogrel [Plavix] 75 mg PO DAILY 02/27/17 [History] Isosorbide MONOnitrate (24 HR) [Imdur] 60 mg PO DAILY tab.er.24h 03/02/17 [Rx] Losartan Potassium [Cozaar] 50 mg PO DAILY 03/26/17 [History] Oxycodone HCl 15 mg PO TID 03/26/17 [History] Vancomycin Oral Soln [Vancocin] 125 mg PO QID 12 Days udc 04/02/17 [Rx] Pantoprazole Sodium [Protonix] 40 mg PO DAILY #30 tablet. 04/08/17 [Rx] Allergies/Adverse Reactions: 3 Allergy/AdvReac Type Severity Reaction Status Date / Time IVP DYE AdvReac See Uncoded 03/26/17 09:56 Comments ivp dye AdvReac See Uncoded 03/26/17 09:56 Comments Date of admission: 04/08/17 14:27 Primary care physician: Hugo Mercedes MD Discharging clinician: Jeffrey Ambriz Anticipated date of discharge: 04/08/17 - Patient Status Disposition: Home, Self-Care Condition: Fair Functional capacity at discharge: uses cane/walker Overall status at discharge: patient is progressing back to baseline - Discharge Instructions Instructions: Pantoprazole (By mouth) Follow Up With: Hugo Mercedes MD [Primary Care Provider] - 04/18/17 1:00 pm Fabrizio Morton MD [Partnered Physician] - 04/09/17 Jermaine Rojas CNP [Advanced Practice Nurse] - 04/17/17 2:30 pm Justyn Jonas DO [Partnered Physician] - Forms: ED Satisfaction Letter Additional Instructions: Follow up with your primary care provider within one week of discharge please follow up with cardiology regarding your medications follow up with Gastroenterology outpatient for capsule endoscopy Take all meds as prescribed return to emergency department immediately if you have any signs of bleeding. - Diet and Activity Activity: increase activity as tolerated Diet: low fat, low cholesterol Hospital course: Ms. Moffett is a 71 year old female with CAD (s/p BRYNN on 02/13/17), DM, ESRD, HLD , HTN, hypothyroidism. Patient arrived to [facility] on 04/05/17 with chief complaint of bloody stools. SHe was recently hospitalized for GI bleed and was discharged from the hospital three days ago. SHe was admitted for further workup. Of note, patient recently had drug eluting stents placed on 02/13/17 and was on dual antiplatelet therapy with aspirin and plavix. During her prior hospitalization for GI bleed, she was transferred to [place], and upon discharge her aspirin was stopped at that time. since then she had only been on plavix. During this current hospitalization, consult to GI was made. patient was recommended to have an EGD and colonoscopy. she initially agreed to this but subsequently refused. Patient has had endoscopies in the past. recommendation was to get capsule endoscopy as outpatient. Attempt was made to get insurance approval for capsule endoscopy as inpatient, but this was denied. Patient does have a history of C.Diff and her oral vancomycin was continued while inpatient. Her hemoglobin and hematocrit was monitored in the hospital and was stable. she required no blood transfusions while inpatient. SHe will be discharged home with follow up outpatient with GI, nephrology, cardiology, and her PCP. she will be discharged home in stable condition. Patient has follow up appointment outpatient with cardiology. At that time, it will be decided whether or not her aspirin will be resumed. Plan: Follow up with your primary care provider within one week of discharge please follow up with cardiology regarding your medications follow up with Gastroenterology outpatient for capsule endoscopy Take all meds as prescribed return to emergency department immediately if you have any signs of bleeding. - Time Spent with Patient Total time spent providing and/or coordinating discharge services: - Constitutional Vitals: Temp Pulse Resp BP Pulse Ox 97.9 F 57 15 94/45 100 04/08/17 11:03 04/08/17 11:03 04/08/17 11:03 04/08/17 11:03 04/08/17 11:03 General appearance: Present: cooperative, A&O X 3, pleasant, no acute distress, answers questions appropriately - Head Head exam: Present: atraumatic, normocephalic - Cardiovascular Cardiovascular exam: Present: RRR, +S1, +S2. Absent: diastolic murmur, gallop - GI/Abdominal GI/Abdominal exam: Present: distended, soft, tenderness - Extremities Exam Extremities exam: Absent: cyanotic, pedal edema, tenderness - VTE Reasons for not Prescribing Prophylaxis: Medical contraindication <Ayaan Rosen - Last Filed: 04/08/17 18:36> Date of Encounter: 04/08/17 - Discharge Diagnosis (1) Hematochezia Priority: Primary Status: Acute (2) Anemia Priority: Secondary Status: Chronic Qualifiers: Anemia type: iron deficiency Iron deficiency anemia type: chronic blood loss Qualified Code(s): D50.0 - Iron deficiency anemia secondary to blood loss (chronic) (3) Clostridium difficile diarrhea Status: Acute (4) Atrial fibrillation Priority: Secondary Status: Chronic Qualifiers: Atrial fibrillation type: chronic Qualified Code(s): I48.2 - Chronic atrial fibrillation (5) CAD (coronary artery disease) Status: Chronic Qualifiers: Coronary Disease-Associated Artery/Lesion type: [place] artery [place] vs. transplanted heart: [place] heart Associated angina: without angina Qualified Code(s): I25.10 - Atherosclerotic heart disease of [place] coronary artery without angina pectoris (6) Diabetes Priority: Secondary Status: Chronic Qualifiers: Diabetes mellitus type: type 2 Diabetes mellitus complication status: with circulatory complication Diabetes mellitus complication detail: with other circulatory complications Diabetes mellitus terminal block assembler insulin use: with chcf use Qualified Code(s): E11.59 - Type 2 diabetes mellitus with other circulatory complications; Z79.4 - care home (current) use of insulin (7) ESRD (end stage renal disease) on dialysis Priority: Secondary Status: Chronic Date of admission: 04/08/17 14:27 Primary care physician: Hugo Mercedes MD Hospital course: Ms. Moffett is a 71 year old female - Time Spent with Patient Total time spent providing and/or coordinating discharge services: - Constitutional Vitals: Temp Pulse Resp BP Pulse Ox 98.7 F 58 14 117/56 100 04/08/17 15:48 04/08/17 15:48 04/08/17 15:48 04/08/17 15:48 04/08/17 15:48 - Attending Attestation I examined this patient and my medical decision-making was reviewed with the Resident Physician on 04/08/17. I agree with the documented findings, disposition and treatment plan as described except to the extent set forth below. Ms Moffett has been admitted for acute GI bleed. She is hemodynamically stable and afebrile. Hemoglobin has been stable too. She is to have capsule endoscopy as outpatient. Exam Alert. Comfortable Heart reg No wheeze Abd soft Plan D/C home today with outpatient followup.
[2017-04-08 16:04] VITALS: BP 117/56
--- NOTE | 2017-04-08 17:55 | Physician Discharge Referral ---
Home Health/Hosp Referral Info Transfer to: Home Health Provider in Charge Post Discharge: PCP - Diagnosis (1) GI bleed Priority: Primary Status: Acute (2) ESRD (end stage renal disease) Priority: Secondary Status: Chronic (3) Elevated troponin I level Priority: Secondary Status: Acute (4) Diabetes mellitus Priority: Secondary Status: Chronic (5) CHF (congestive heart failure) Priority: Secondary Status: Acute (6) CAD (coronary artery disease) Priority: Secondary Status: Chronic (7) Clostridium difficile diarrhea Priority: Secondary Status: Acute (8) DVT prophylaxis Priority: Secondary Status: Acute - Respiratory Orders Oxygen / L per min Smoking Cessation: Smoking cessation has been advised. For more information, call the [employer] Quit Line at 6-276-DQCH-NOW. - Diet/Nutrition Diet/Nutrition Orders: Renal - Activity Activity Orders: Ambulate - Services Needed Following services are medically necessary services: Nursing, Home Health Aide, Physical Therapy, Occupational Therapy - Transfer Medications Prescriptions: Pantoprazole Sodium [Protonix] 40 mg PO DAILY #30 tablet.dr Home Medications: Levothyroxine Sodium [Synthroid] 200 mcg PO DAILY 02/08/16 [History] amLODIPine [Norvasc] 10 mg PO DAILY 02/14/16 [History] Atorvastatin [Lipitor] 40 mg PO DAILY 05/26/16 [History] Calcium Acetate [Phos-LO] 1,334 mg PO TIDWM 05/26/16 [History] Duloxetine HCl [Cymbalta] 30 mg PO DAILY 05/26/16 [History] Ergocalciferol (VITAMIN D2) [Vitamin D2] 50,000 unit PO WE 05/26/16 [History] Gabapentin [Neurontin] 300 mg PO DAILY 05/26/16 [History] Hydralazine HCl 50 mg PO Q8H 05/26/16 [History] LORazepam [Ativan] 0.5 - 1 mg PO BID PRN 05/26/16 [History] Metoprolol XL (24 HR) Succ [Toprol Xl] 50 mg PO DAILY 05/26/16 [History] Renal Vitamin [Renal Caps Softgel] 1 mg PO DAILY 05/26/16 [History] Allopurinol [Zyloprim 300 MG] 300 mg PO DAILY 05/27/16 [History] Cinacalcet [Sensipar] 30 mg PO DAILY 01/06/17 [History] Insulin Glargine [Lantus] 10 unit SQ DAILY 02/11/17 [History] Clopidogrel [Plavix] 75 mg PO DAILY 02/27/17 [History] Isosorbide MONOnitrate (24 HR) [Imdur] 60 mg PO DAILY tab.er.24h 03/02/17 [Rx] Losartan Potassium [Cozaar] 50 mg PO DAILY 03/26/17 [History] Oxycodone HCl 15 mg PO TID 03/26/17 [History] Vancomycin Oral Soln [Vancocin] 125 mg PO QID 12 Days udc 04/02/17 [Rx] Pantoprazole Sodium [Protonix] 40 mg PO DAILY #30 tablet. 04/08/17 [Rx] Allergies/Adverse Reactions: 3 Allergy/AdvReac Type Severity Reaction Status Date / Time IVP DYE AdvReac See Uncoded 03/26/17 09:56 Comments ivp dye AdvReac See Uncoded 03/26/17 09:56 Comments Certification: Further, I certify that my clinical findings support that this patient is homebound (i.e. absences from home require considerable and taxing effort and are for medical reasons or caodaism services or infrequently or short duration when for other reasons) because: Homebound Reason: Patient requires assistance of a person or device to safely leave home Attestation: My signature below is to certify that this patient is under my care and that I, or nurse practitioner, or a physician's telecom assistant working with me, has a face-to -face encounter with this patient.
--- NOTE | 2017-04-08 22:35 | Electrocardiograph Report ---
[address] [place], [place] [address] Test Date: 2017-04-05 Pat Name: Ursula Moffett Department: 104 Room: 2N02 Gender: F Cnc Supervisor: DARLINE : 1945 Requested By: Abilio Cabral Order Number: [id number] Reading MD: Mckenzie Florentino Measurements Intervals Century Rate: 75 P: -26 WI: 249 QRS: -27 QRSD: 96 T: -30 QT: 392 QTc: 421 Interpretive Statements SINUS RHYTHM WITH FIRST DEGREE AV BLOCK WITH OCCASIONAL SUPRAVENTRICULAR PREMATURE COMPLEXES MODERATE VOLTAGE CRITERIA FOR LVH, CONSIDER NORMAL VARIANT INFERIOR MYOCARDIAL INFARCTION, OF INDETERMINATE AGE Electronically Signed On 04-08-2017 22:34:21 EST by Mckenzie Florentino
== END 2017-04-08 18:30 | disposition home or self-care (01) | DRG 377 ==
LOC: EMEROO 01:42 → 2ANU 01:42 → SUATTDRO 06:07 → 2ANU 06:22 → 2NNU 04-06 21:14
PROVIDERS: ADMIT Internal Medicine; ATTEND Internal Medicine

== ENCOUNTER 2017-05-19 06:47 | Inpatient (IN) ==
[2017-05-19 07:31] LABS: Bilirubin,Urine Negative (Negative); Blood,Urine Moderate (Negative); Clarity,Urine Cloudy (Clear); Color,Urine Yellow (Yellow); Glucose,Urine (UA) Normal (Normal); Ketones,Urine Negative (Negative); Leukocyte Esterase,Urine Small (Negative); Nitrite,Urine Negative (Negative); Protein,Urine >=300 mg/dL (Neg-Trace); Urobilinogen,Urine Normal (Normal)
[2017-05-19 07:34] LABS: WBC,Urine TNTC per hpf (0-3)
[2017-05-19 07:34] LABS: Basophils # 0.1 K/mcL (0.0-0.2); Basophils % 0.7 %; Eosinophils # 0.1 K/mcL (0.0-0.6); Eosinophils % 1.2 %; Hematocrit 38.6 % (35.3-44.9); Hemoglobin 12.6 g/dL (11.5-15.4); Immature Granulocytes % 0.2 % (0-4); Immature Platelets 4.8 % (1.1-6.1); Lymphocytes # 1.7 K/mcL (0.6-4.6); Lymphocytes % 18.8 %; Mean Corpuscular HGB Conc 32.6 g/dL (31.6-35.5); Mean Corpuscular Hemoglobin 31.7 pg (28.0-33.3); Mean Platelet Volume 10.8 fL (9.4-12.4); Monocytes # 0.7 K/mcL (0.0-1.3); Monocytes % 7.5 %; Neutrophils # 6.4 K/mcL (1.6-8.9); Platelet Count 319 K/mcL (140-400); Red Blood Count 3.98 M/mcL (3.82-4.97); Red Cell Distribution Width 15.5 % (11.5-14.5); Segmented Neutrophils % 71.6 %
[2017-05-19 07:35] LABS: Bacteria,Urine Present per hpf (None-Few); RBC,Urine Present per hpf (0-3); Squamous Epithelial Cell,Urine Present per lpf (None-Few)
[2017-05-19 07:39] LABS: INR 0.9
[2017-05-19 07:42] LABS: Activated Partial Thrombo Time 25.9 Seconds (26.0-36.0)
[2017-05-19 07:53] LABS: Albumin 3.8 g/dL (3.5-5.7); Bilirubin,Indirect 0.4 mg/dL (0.0-1.2); Bilirubin,Total 0.4 mg/dL (0.3-1.0); Globulin 3.8 g/dL (2.4-3.5); Magnesium 2.4 mg/dL (1.6-2.6); Phosphorous 6.5 mg/dL (2.7-4.5); Potassium 3.4 mEq/L (3.5-5.1); Total Protein 7.6 g/dL (6.4-8.9)
[2017-05-19] MEDS ORDERED: cefTRIAXone 1,000 MG in Water for inj. (sterile) 20 ML 10 ML IVP ONE (07:55)
--- NOTE | 2017-05-19 08:01 | Emergency Department Note ---
Disposition Clinical Impression: Pulmonary edema, Hypoxia UTI (urinary tract infection) Qualifiers: Urinary tract infection type: acute cystitis Hematuria presence: without hematuria Qualified Code(s): N30.00 - Acute cystitis without hematuria Congestive heart failure Qualifiers: Congestive heart failure type: unspecified Congestive heart failure chronicity : unspecified Qualified Code(s): I50.9 - Heart failure, unspecified Altered mental status Qualifiers: Altered mental status type: unspecified Qualified Code(s): R41.82 - Altered mental status, unspecified Disposition: Admitted As Inpatient Condition: Fair Referrals: Hugo Mercedes MD [Primary Care Provider] - Forms: ED Satisfaction Letter General Adult HPI - General Chief complaint: ED Altered Mental Status Stated complaint: AMS Time Seen by Provider: 05/19/17 06:49 Source: EMS Limitations: altered mental status Nursing Notes Reviewed: Yes Vital Signs Reviewed: Yes - History of Present Illness HPI Narrative: 71-year-old female who presents from dialysis. couple of days. She went to dialysis as normal today and after about 5 minutes she was acutely confused so EMS was called. When EMS arrived her glucose was 58. They administered oral glucose which did improve her confusion. She does have a insulin pump. She has dialysis on Friday. She sees Dr Yosvany snow. She was recently admitted and had a drug-eluting stent placed. She is currently on Plavix and aspirin. She also does wear 2 L of oxygen at home and was not on oxygen at the time when she was at dialysis. At dialysis they also noted that her SPO2 was in the high 80s. This resolved on 2 L of nasal cannula. She has complained of shortness of breath for a long time according to her family member who is in the room. The family member reports that she has had increased sleepiness over the last 2 days. Pain Scale: 0 Improves with: nothing Worsens with: nothing Associated symptoms: Reports: denies other symptoms Treatments Prior to Arrival: none - Related Data Home Medications Medication Instructions Recorded Confirmed Levothyroxine Sodium [Synthroid] 200 mcg PO DAILY 02/08/16 05/19/17 amLODIPine [Norvasc] 10 mg PO DAILY 02/14/16 05/19/17 Atorvastatin [Lipitor] 40 mg PO DAILY 05/26/16 05/19/17 Calcium Acetate [Phos-LO] 1,334 mg PO TIDWM 05/26/16 05/19/17 Duloxetine HCl [Cymbalta] 30 mg PO DAILY 05/26/16 05/19/17 Ergocalciferol (VITAMIN D2) 50,000 unit PO WE 05/26/16 05/19/17 [Vitamin D2] Gabapentin [Neurontin] 300 mg PO DAILY 05/26/16 05/19/17 Hydralazine HCl 50 mg PO Q8H 05/26/16 05/19/17 LORazepam [Ativan] 0.5 - 1 mg PO BID PRN 05/26/16 05/19/17 Metoprolol XL (24 HR) Succ [Toprol 50 mg PO DAILY 05/26/16 05/19/17 Xl] Renal Vitamin [Renal Caps Softgel] 1 mg PO DAILY 05/26/16 05/19/17 Allopurinol [Zyloprim 300 MG] 300 mg PO DAILY 05/27/16 05/19/17 Cinacalcet [Sensipar] 30 mg PO DAILY 01/06/17 05/19/17 Insulin Glargine [Lantus] 10 unit SQ DAILY 02/11/17 05/19/17 Clopidogrel [Plavix] 75 mg PO DAILY 02/27/17 05/19/17 Losartan Potassium [Cozaar] 50 mg PO DAILY 03/26/17 05/19/17 Oxycodone HCl 15 mg PO TID 03/26/17 05/19/17 Previous Rx's Medication Instructions Recorded Isosorbide MONOnitrate (24 HR) 60 mg PO DAILY tab.er.24h 03/02/17 [Imdur] Pantoprazole Sodium [Protonix] 40 mg PO DAILY #30 tablet. 04/08/17 Allergies Allergy/AdvReac Type Severity Reaction Status Date / Time IVP DYE AdvReac See Uncoded 03/26/17 09:56 Comments ivp dye AdvReac See Uncoded 03/26/17 09:56 Comments All systems ED: reviewed and negative except as stated. Constitutional: Denies: fever ENT ED: Denies: throat pain Cardiovascular: Denies: chest pain Respiratory: Reports: dyspnea Gastrointestinal: Denies: abdominal pain Integumentary: Denies: rash Endocrine: Reports: fatigue Past Medical History - Past Medical History Medical history: Reports: coronary artery disease, diabetes, dialysis, hyperlipidemia, hypertension, renal disease, thyroid disease Surgical history: Reports: hysterectomy (Partial), orthopedic, other (Back surgery), other, vascular surgery Psychiatric history: Reports: anxiety, depression - Social History Smoking Status: Never smoker Smokeless Tobacco Status: No Alcohol use: Reports: none Drug use: Reports: none Physical Exam - General Limitations: altered mental status General appearance: lethargic - Head Head exam: atraumatic - Eye Eye exam: Present: normal appearance, PERRL - ENT ENT exam: normal exam, normal oropharynx - Neck Neck exam: Present: normal inspection - Chest Chest inspection: Present: normal inspection - Respiratory Respiratory exam: Present: other (mild coarse rhonchi throughout) - Cardiovascular Cardiovascular exam: Present: normal rhythm, bradycardia - Abdominal Exam Abdominal exam: Present: soft, Non-Tender - Extremities Exam Extremities exam: Present: normal inspection - Neurological Exam Neurological exam: Present: other (alert but sleepy) - Skin Skin exam: Present: warm, dry Course Course Narrative: She is more hypoxic than her baseline. Due to this and a chest x-ray showing vascular congestion and that she missed her dialysis I placed her on CPAP which improved her oxygenation. CT abdomen does not show acute abnormality. Her urinalysis demonstrates a urinary tract infection. I did give her Rocephin. I called and spoke with nephrology Dr. Lay who plans to place her on dialysis today. Troponin is 0.05 however she does have chronically elevated troponins likely due to her end-stage renal disease. EKG shows sinus bradycardia at 53. Mildly prolonged QT. No ST changes. Will admit for fluid overload/CHF, and AMS w/ UTI. Vital Signs Temperature 97.4 F L 05/19/17 06:49 Pulse Rate 54 05/19/17 06:49 Respiratory Rate 16 05/19/17 06:49 Blood Pressure 139/81 05/19/17 06:49 O2 Sat by Pulse Oximetry 90 05/19/17 06:49 Temperature 97.4 F L 05/19/17 06:49 Pulse Rate 54 05/19/17 09:56 Respiratory Rate 18 05/19/17 09:56 Blood Pressure 169/76 05/19/17 09:56 O2 Sat by Pulse Oximetry 96 05/19/17 09:56 Oxygen Delivery Oxygen Delivery Bipap Medical Decision Making - Medical Records Medical records reviewed: Yes I reviewed the patient's medical records. - Lab Data Lab results reviewed: Yes I reviewed the patient's lab results. Result diagrams: 05/19/17 07:24 05/19/17 07:24 Lab Results 05/19/17 05/19/17 05/19/17 Range/Units 07:06 07:24 07:24 WBC 8.9 (4.3-11.1) K/mcL RBC 3.98 (3.82-4.97) M/mcL Hgb 12.6 (11.5-15.4) g/dL Hct 38.6 (35.3-44.9) % MCV 97.0 (83.0-100.0) fL MCH 31.7 (28.0-33.3) pg MCHC 32.6 (31.6-35.5) g/dL RDW 15.5 H (11.5-14.5) % Plt Count 319 (140-400) K/mcL MPV 10.8 (9.4-12.4) fL Immature Gran % 0.2 (0-4) % Seg Neutrophils % 71.6 % Lymphocytes % 18.8 % Monocytes % 7.5 % Eosinophils % 1.2 % Basophils % 0.7 % Neutrophils # 6.4 (1.6-8.9) K/mcL Lymphocytes # 1.7 (0.6-4.6) K/mcL Monocytes # 0.7 (0.0-1.3) K/mcL Eosinophils # 0.1 (0.0-0.6) K/mcL Basophils # 0.1 (0.0-0.2) K/mcL Immature Plt Fraction 4.8 (1.1-6.1) % PT 10.0 (9.4-12.1) Seconds INR 0.9 APTT 25.9 L (26.0-36.0) Seconds Sodium (136-145) mEq/L Potassium (3.5-5.1) mEq/L Chloride (98-107) mEq/L Carbon Dioxide (23-29) mEq/L BUN (8-23) mg/dL Creatinine (0.60-1.20) mg/dL Est GFR ( Amer) (> 60) Est GFR (Non-Af Amer) (> 60) BUN/Creatinine Ratio (6-26) Glucose (70-105) mg/dL Calculated Osmolality (280-300) Lactic Acid (0.5-2.2) mmol/L Calcium (8.6-10.3) mg/dL Phosphorus (2.7-4.5) mg/dL Magnesium (1.6-2.6) mg/dL Total Bilirubin (0.3-1.0) mg/dL Direct Bilirubin (0.0-0.2) mg/dL Indirect Bilirubin (0.0-1.2) mg/dL AST (13-39) Units/L ALT (7-52) Units/L Alkaline Phosphatase (34-104) Units/L Troponin I (< 0.04) ng/mL B-Natriuretic Peptide (Less than 100) pg/mL Serum Total Protein (6.4-8.9) g/dL Albumin (3.5-5.7) g/dL Globulin (2.4-3.5) g/dL Albumin/Globulin Ratio (1.1-2.2) Ur Specimen Adequacy See below A Urine Color Yellow (Yellow) Urine Clarity Cloudy A (Clear) Urine pH 7.0 (5.0-8.0) pH Units Ur Specific [place] 1.020 (1.010-1.025) Urine Protein >=300 H (Neg-Trace) mg/dL Urine Glucose (UA) Normal (Normal) mg/dL Urine Ketones Negative (Negative) mg/dL Urine Blood Moderate H (Negative) Urine Nitrite Negative (Negative) Urine Bilirubin Negative (Negative) Urine Urobilinogen Normal (Normal) mg/dL Ur Leukocyte Esterase Small H (Negative) Urine Microscopic RBC Present (0-3) per hpf Urine Microscopic WBC TNTC H (0-3) per hpf Ur Squamous Epith Cells Present (None-Few) per lpf Urine Bacteria Present (None-Few) per hpf Ur Culture Indicated? YES A (NO) 05/19/17 05/19/17 05/19/17 Range/Units 07:24 07:24 07:24 WBC (4.3-11.1) K/mcL RBC (3.82-4.97) M/mcL Hgb (11.5-15.4) g/dL Hct (35.3-44.9) % MCV (83.0-100.0) fL MCH (28.0-33.3) pg MCHC (31.6-35.5) g/dL RDW (11.5-14.5) % Plt Count (140-400) K/mcL MPV (9.4-12.4) fL Immature Gran % (0-4) % Seg Neutrophils % % Lymphocytes % % Monocytes % % Eosinophils % % Basophils % % Neutrophils # (1.6-8.9) K/mcL Lymphocytes # (0.6-4.6) K/mcL Monocytes # (0.0-1.3) K/mcL Eosinophils # (0.0-0.6) K/mcL Basophils # (0.0-0.2) K/mcL Immature Plt Fraction (1.1-6.1) % PT (9.4-12.1) Seconds INR APTT (26.0-36.0) Seconds Sodium 136 (136-145) mEq/L Potassium 3.4 L (3.5-5.1) mEq/L Chloride 95 L (98-107) mEq/L Carbon Dioxide 23 (23-29) mEq/L BUN 61 H (8-23) mg/dL Creatinine 6.34 H (0.60-1.20) mg/dL Est GFR ( Amer) 8 L (> 60) Est GFR (Non-Af Amer) 7 L (> 60) BUN/Creatinine Ratio 10 (6-26) Glucose 105 (70-105) mg/dL Calculated Osmolality 300 (280-300) Lactic Acid 1.6 (0.5-2.2) mmol/L Calcium 9.0 (8.6-10.3) mg/dL Phosphorus 6.5 H (2.7-4.5) mg/dL Magnesium 2.4 (1.6-2.6) mg/dL Total Bilirubin 0.4 (0.3-1.0) mg/dL Direct Bilirubin 0.0 (0.0-0.2) mg/dL Indirect Bilirubin 0.4 (0.0-1.2) mg/dL AST 16 (13-39) Units/L ALT 12 (7-52) Units/L Alkaline Phosphatase 147 H (34-104) Units/L Troponin I 0.05 H* (< 0.04) ng/mL B-Natriuretic Peptide (Less than 100) pg/mL Serum Total Protein 7.6 (6.4-8.9) g/dL Albumin 3.8 (3.5-5.7) g/dL Globulin 3.8 H (2.4-3.5) g/dL Albumin/Globulin Ratio 1.0 L (1.1-2.2) Ur Specimen Adequacy Urine Color (Yellow) Urine Clarity (Clear) Urine pH (5.0-8.0) pH Units Ur Specific [place] (1.010-1.025) Urine Protein (Neg-Trace) mg/dL Urine Glucose (UA) (Normal) mg/dL Urine Ketones (Negative) mg/dL Urine Blood (Negative) Urine Nitrite (Negative) Urine Bilirubin (Negative) Urine Urobilinogen (Normal) mg/dL Ur Leukocyte Esterase (Negative) Urine Microscopic RBC (0-3) per hpf Urine Microscopic WBC (0-3) per hpf Ur Squamous Epith Cells (None-Few) per lpf Urine Bacteria (None-Few) per hpf Ur Culture Indicated? (NO) 05/19/17 Range/Units 07:24 WBC (4.3-11.1) K/mcL RBC (3.82-4.97) M/mcL Hgb (11.5-15.4) g/dL Hct (35.3-44.9) % MCV (83.0-100.0) fL MCH (28.0-33.3) pg MCHC (31.6-35.5) g/dL RDW (11.5-14.5) % Plt Count (140-400) K/mcL MPV (9.4-12.4) fL Immature Gran % (0-4) % Seg Neutrophils % % Lymphocytes % % Monocytes % % Eosinophils % % Basophils % % Neutrophils # (1.6-8.9) K/mcL Lymphocytes # (0.6-4.6) K/mcL Monocytes # (0.0-1.3) K/mcL Eosinophils # (0.0-0.6) K/mcL Basophils # (0.0-0.2) K/mcL Immature Plt Fraction (1.1-6.1) % PT (9.4-12.1) Seconds INR APTT (26.0-36.0) Seconds Sodium (136-145) mEq/L Potassium (3.5-5.1) mEq/L Chloride (98-107) mEq/L Carbon Dioxide (23-29) mEq/L BUN (8-23) mg/dL Creatinine (0.60-1.20) mg/dL Est GFR ( Amer) (> 60) Est GFR (Non-Af Amer) (> 60) BUN/Creatinine Ratio (6-26) Glucose (70-105) mg/dL Calculated Osmolality (280-300) Lactic Acid (0.5-2.2) mmol/L Calcium (8.6-10.3) mg/dL Phosphorus (2.7-4.5) mg/dL Magnesium (1.6-2.6) mg/dL Total Bilirubin (0.3-1.0) mg/dL Direct Bilirubin (0.0-0.2) mg/dL Indirect Bilirubin (0.0-1.2) mg/dL AST (13-39) Units/L ALT (7-52) Units/L Alkaline Phosphatase (34-104) Units/L Troponin I (< 0.04) ng/mL B-Natriuretic Peptide 1875 H (Less than 100) pg/mL Serum Total Protein (6.4-8.9) g/dL Albumin (3.5-5.7) g/dL Globulin (2.4-3.5) g/dL Albumin/Globulin Ratio (1.1-2.2) Ur Specimen Adequacy Urine Color (Yellow) Urine Clarity (Clear) Urine pH (5.0-8.0) pH Units Ur Specific [place] (1.010-1.025) Urine Protein (Neg-Trace) mg/dL Urine Glucose (UA) (Normal) mg/dL Urine Ketones (Negative) mg/dL Urine Blood (Negative) Urine Nitrite (Negative) Urine Bilirubin (Negative) Urine Urobilinogen (Normal) mg/dL Ur Leukocyte Esterase (Negative) Urine Microscopic RBC (0-3) per hpf Urine Microscopic WBC (0-3) per hpf Ur Squamous Epith Cells (None-Few) per lpf Urine Bacteria (None-Few) per hpf Ur Culture Indicated? (NO) - Radiology Data Radiology results reviewed: Yes I reviewed the patient's radiology results. - EKG Data EKG #1 EKG attestation: Yes I reviewed and interpreted this EKG. EKG shows normal: sinus rhythm Rate: bradycardia Rhythm: NSR [place]/QRS: normal When compared to previous EKG there are: other Interpretation: other (mild prolonged QTc at 510, however sinus bradycardia at 53) Attestation Statement - Attestation Attestation: I examined this patient and my medical decision-making was reviewed with the Resident Physician. I agree with the documented findings, disposition and treatment plan as described except to the extent set forth below. Patient presented to the ED from dialysis for hypoxia and altered mental status. She only received 12 minutes of her dialysis. Patient does complain she does not feel well. On exam she is hypoxic on her home oxygen. Mildly tachypneic. Lungs diminished. Abdomen soft. Plan. Patient has some mild pulmonary edema. She has a UTI. Likely the cause of her altered mental status. We will start antibiotic. Nephrology has been paged and patient will go for dialysis.
[2017-05-19] MEDS ORDERED: Furosemide 40 MG/4 ML VIAL IVP ONE (08:28)
[2017-05-19] MEDS ORDERED: *HR* Morphine 2 MG/ML SYRINGE IVP ONE (09:10)
--- NOTE | 2017-05-19 10:48 | Nephrology Consult Note ---
Date of Encounter: 05/19/17 Time of Encounter: 10:47 Assessment and Plan (1) UTI (urinary tract infection) Current Visit: No Status: Acute Weakness likely secondary to UTI Continue antibiotics and management per primary team Qualifiers: Urinary tract infection type: site unspecified Hematuria presence: without hematuria Qualified Code(s): N39.0 - Urinary tract infection, site not specified (2) ESRD (end stage renal disease) on dialysis Current Visit: Yes Status: Chronic BNP 1875, CXR reveals congestive heart failure, CT abd reveals at least moderate size bilateral pleural effusions. Bilateral lower lobe airspace opacities with air bronchograms may represent atelectasis, multifocal pneumonia , or combination thereof. Echo 02/12/17 revealed EF 55-60%, RV hypokinesis, mild pulmonary hypertension Resume HD as scheduled MWF Avoid nephrotoxins (3) Diabetes mellitus, type 2 Current Visit: No Status: Chronic AMS prior to arrival. When EMS arrived, her glucose was 58. EMS administered oral glucose which resolved her confusion. Continue close blood glucose monitoring and SSI Qualifiers: Diabetes mellitus complication status: with kidney complications Diabetes mellitus complication detail: with chronic kidney disease Diabetes mellitus investment banking analyst insulin use: with investment banking analyst use Chronic kidney disease stage: on chronic dialysis Qualified Code(s): E11.22 - Type 2 diabetes mellitus with diabetic chronic kidney disease; N18.6 - End stage renal disease; Z79.4 - housecalls nurse (current) use of insulin; Z99.2 - Dependence on renal dialysis History of Present Illness - Reason for Consult Consult date: 05/19/17 end stage renal disease Requesting physician: Wing Berg - Chief Complaint SOB - History of Present Illness Ms. Moffett is a 71yo female with a PMH of ESRD on HD MWF who presented to the ED after about 5 minutes of dialysis due to weakness and AMS. When EMS arrived, her glucose was 58. EMS administered oral glucose which resolved her confusion. She reports chills, decreased urination, and lower abdominal pain. In the ED, labs revealed UTI and patient was started on antibiotics. Acute respiratory panel was negative. Her last HD was on Friday and patient denies any complications at her fistula site. Past Med Surg Social Fam HX - Past Medical History Medical history: coronary artery disease, diabetes, dialysis, hyperlipidemia, hypertension, renal disease, thyroid disease Psychiatric history: anxiety, depression - Past Surgical History Surgical History: hysterectomy (Partial), orthopedic, other (Back surgery), other, vascular surgery - Social History Smoking Status: Never smoker Smokeless Tobacco Status: No Alcohol use: none Drug use: none - Family History Mother Living Status: Hx Family Cardiac Disorders: Yes (CAD) Father Living Status: Hx Family Cancer: Yes (Colon) Hx Family Endocrine Disorder: Yes (DM) Brother Living Status: Hx Family Cancer: Yes (Colon) Hx Family Endocrine Disorder: Yes (DM) Sister Living Status: Hx Family Cardiac Disorders: Yes Hx Family Cancer: Yes (Cervical) Hx Family Endocrine Disorder: Yes (DM) Medications and Allergies Levothyroxine Sodium [Synthroid] 200 mcg PO DAILY 02/08/16 [History] amLODIPine [Norvasc] 10 mg PO DAILY 02/14/16 [History] Atorvastatin [Lipitor] 40 mg PO DAILY 05/26/16 [History] Calcium Acetate [Phos-LO] 1,334 mg PO TIDWM 05/26/16 [History] Duloxetine HCl [Cymbalta] 30 mg PO DAILY 05/26/16 [History] Ergocalciferol (VITAMIN D2) [Vitamin D2] 50,000 unit PO WE 05/26/16 [History] Gabapentin [Neurontin] 300 mg PO DAILY 05/26/16 [History] Hydralazine HCl 50 mg PO Q8H 05/26/16 [History] LORazepam [Ativan] 0.5 - 1 mg PO BID PRN 05/26/16 [History] Metoprolol XL (24 HR) Succ [Toprol Xl] 50 mg PO DAILY 05/26/16 [History] Renal Vitamin [Renal Caps Softgel] 1 mg PO DAILY 05/26/16 [History] Allopurinol [Zyloprim 300 MG] 300 mg PO DAILY 05/27/16 [History] Cinacalcet [Sensipar] 30 mg PO DAILY 01/06/17 [History] Insulin Glargine [Lantus] 10 unit SQ DAILY 02/11/17 [History] Clopidogrel [Plavix] 75 mg PO DAILY 02/27/17 [History] Isosorbide MONOnitrate (24 HR) [Imdur] 60 mg PO DAILY tab.er.24h 03/02/17 [Rx] Losartan Potassium [Cozaar] 50 mg PO DAILY 03/26/17 [History] Oxycodone HCl 15 mg PO TID 03/26/17 [History] Pantoprazole Sodium [Protonix] 40 mg PO DAILY #30 tablet. 04/08/17 [Rx] 3 Allergy/AdvReac Type Severity Reaction Status Date / Time IVP DYE AdvReac See Uncoded 03/26/17 09:56 Comments ivp dye AdvReac See Uncoded 03/26/17 09:56 Comments Review of Systems Constitutional: chills, fatigue, lethargy, weakness, no fever(s) Nose, mouth and throat: no hoarseness, no sore throat Cardiovascular: no chest pain, no palpitations Respiratory: cough, no wheezing, no excessive phlegm production Gastrointestinal: abdominal pain, no nausea, no vomiting Genitourinary Female: no dysuria, no urinary frequency, no urinary urgency Musculoskeletal: no numbness, no tingling Integumentary: no new lesions, no rash Neurological: confusion, weakness, no numbness, no tingling Psychiatric: no anxiety, no depression Exam - Vital Signs Vital signs: Initial Vital Signs Temp Pulse Resp BP Pulse Ox 97.4 F L 54 16 139/81 90 05/19/17 06:49 05/19/17 06:49 05/19/17 06:49 05/19/17 06:49 05/19/17 06:49 Vital Signs - Last 8 Hours Temp Pulse Resp BP Pulse Ox 05/19/17 09:56 54 18 169/76 96 05/19/17 09:20 179/84 05/19/17 09:16 54 18 182/98 99 05/19/17 08:53 13 95 05/19/17 08:15 52 18 170/79 91 05/19/17 06:49 97.4 F L 54 16 139/81 90 Intake and Output 05/18/17 05/19/17 05/19/17 23:59 07:59 15:59 Intake Total Balance Intake: IV Fluids Rocephin 1,000 MG In Water for inj. (sterile) 10 ML @ 300 mls/ hr IVP ONCE ONE Rx#:[id number] Other: Weight 72.575 kg Blood Glucose* 98 Patient Weight 05/19/17 23:59 Weight 72.575 kg - General Appearance General appearance: well-developed, well-nourished, appears started age EENT: PERRL, mucous membranes dry Neck: no JVD, supple Respiratory: clear (bilaterally) Cardiology: no murmurs, regular rhythm (bradyscardia) Gastrointestinal: normoactive bowel sounds, no tenderness, no guarding, no organomegaly Integumentary: no rash, warm and dry Neurologic: no focal deficit, alert and oriented x3 Musculoskeletal: no deformities, no erythema Psychiatric: mood/affect appropriate Results - Lab Results 05/19/17 07:24 05/19/17 07:24 Most recent lab results Calcium 9.0 mg/dL (8.6-10.3) 05/19/17 07:24 Phosphorus 6.5 mg/dL (2.7-4.5) H 05/19/17 07:24 Magnesium 2.4 mg/dL (1.6-2.6) 05/19/17 07:24 Consult Discharge Plan - Plan Referrals: Hugo Mercedes MD [Primary Care Provider] -
[2017-05-19] MEDS ORDERED: 0.9 % Sodium Chloride 1,000 ML PRIME SCH (11:30)
[2017-05-19] MEDS ORDERED: 0.9 % Sodium Chloride 250 ML IVC PRN (11:30)
[2017-05-19 11:32] LABS: Adenovirus Not Detected (Not Detect); Bordetella Pertussis Not Detected (Not Detect); Chlamydophila pneumoniae Not Detected (Not Detect); Coronavirus 229E Not Detected (Not Detect); Coronavirus HKU1 Not Detected (Not Detect); Coronavirus NL63 Not Detected (Not Detect); Coronavirus OC43 Not Detected (Not Detect); Human Metapneumovirus Not Detected (Not Detect); Human Rhinovirus/Enterovirus Not Detected (Not Detect); Influenza A Subtype 2009 H1 Not Detected (Not Detect); Influenza A Untypeable Not Detected (Not Detect); Influenza B Not Detected (Not Detect); Mycoplasma pneumoniae Not Detected (Not Detect); Parainfluenza Virus 1 Not Detected (Not Detect); Parainfluenza Virus 2 Not Detected (Not Detect); Parainfluenza Virus 3 Not Detected (Not Detect); Parainfluenza Virus 4 Not Detected (Not Detect); Respiratory Syncytial Virus Not Detected (Not Detect)
[2017-05-19] MEDS ORDERED: Naloxone 0.4 MG/ML INJ IVP PRN (12:13)
[2017-05-19] MEDS ORDERED: Ondansetron 4 MG/2 ML VIAL IVP PRN (12:13)
[2017-05-19] MEDS ORDERED: *HR* LORazepam 0.5 MG TABLET PO PRN (12:18)
[2017-05-19 12:23] LABS: Hepatitis B Surface Antigen Nonreactive (Nonreactive)
[2017-05-19] MEDS ORDERED: NON-FORMULARY MEDICATION 1 EACH EACH (Insulin Glargine [Lantus] 10 UNIT) SQ SCH (12:30)
[2017-05-19 12:38] LABS: Hepatitis B Surface Antibody 87.89 mIU/mL
[2017-05-19] MEDS ORDERED: *HR* Dextrose 50 % in Water (Syg) 50 ML SYRINGE IVP PRN (12:41)
[2017-05-19] MEDS ORDERED: D5% in Water 1,000 ML IVC PRN (12:41)
[2017-05-19] MEDS ORDERED: Dextrose Gel 15 GM/37.5 ML TUBE PO PRN ×2 (12:41)
--- NOTE | 2017-05-19 13:22 | Internal Med History&Physical ---
<Danika Ford S - Last Filed: 05/19/17 13:43> Date of Encounter: 05/19/17 Time of Encounter: 13:01 Assessment and Plan (1) CHF (congestive heart failure) Current visit: Yes Status: Acute CXR revealed pulmonary vascular congestion CT abdomen reported bilateral moderate pleural effusion lasix 40mg in ED HD later today as per nephology service Nephrology consult daily weight intake and output BNP in am compliance monitor Qualifiers: Congestive heart failure type: unspecified Congestive heart failure chronicity: acute on chronic Qualified Code(s): I50.9 - Heart failure, unspecified (2) Hypoxia Current visit: Yes Status: Acute chronic 02 use 2 liters NC at home placed on bypap in ED will place on 02 titration order resp infectious panel obtained (3) Acute metabolic encephalopathy Current visit: No Status: Acute found to have low blood sugar which was treated by EMS with oral glucose Patient now back to her baseline per , answering questions appropriately (4) UTI (urinary tract infection) Current visit: Yes Status: Acute Acute cystitis continue rocephin IV, pharmacy called and stated does not need to be renally dosed, order adjusted per pharmacy blood and urine culture pending follow temperature and fever curve Qualifiers: Urinary tract infection type: site unspecified Hematuria presence: without hematuria Qualified Code(s): N39.0 - Urinary tract infection, site not specified (5) ESRD (end stage renal disease) Current visit: Yes Status: Chronic hd today, every m/w/ (6) Uncontrolled type 2 diabetes mellitus with insulin therapy Current visit: Yes Status: Chronic Insulin pump discontinued and given to her spouse low dose sliding scale insulin diabetic diet (7) HLD (hyperlipidemia) Current visit: No Status: Chronic Qualifiers: Hyperlipidemia type: pure hypercholesterolemia Qualified Code(s): E78.00 - Pure hypercholesterolemia, unspecified; E78.0 - Pure hypercholesterolemia (8) CAD (coronary artery disease) Current visit: Yes Status: Chronic continue plavix and asa as drug eluting stent Qualifiers: Coronary Disease-Associated Artery/Lesion type: [place] artery [place] vs. transplanted heart: [place] heart Associated angina: without angina Qualified Code(s): I25.10 - Atherosclerotic heart disease of [place] coronary artery without angina pectoris (9) HTN (hypertension) Current visit: No Status: Chronic Qualifiers: Hypertension type: essential hypertension Qualified Code(s): I10 - Essential (primary) hypertension Internal Medicine - H&P: HPI Chief complaint: bilateral leg pain s/p fall Admitted From: Emergency Dept Plans for Post Hospital Care: Home History of present illness: Ms. Moffett is a 71 year old female who who went to HD today. She became SOB and had altered mental status. EMS was called and she was found to have a blood glucose of 58. She was given oral glucose and brought to the ER for evaluation. The patient is on chronic oxygen at 2 L at home. She states yesterday she was a little bit short of breath and had some pain in her chest. She states that she had at a pretty significant diarrhea 2-3 weeks ago with none since, she also had some dry heaves yesterday and just has felt a little bit off. She has a past medical history significant for CAD, diabetes mellitus , hyperlipidemia, hypertension, end-stage renal diet disease hemodialysis dependent Friday. She also had a cardiac catheterization with angioplasty and stents placed 02/13/17 and is on Plavix and aspirin. Chest x- ray revealed some pulmonary vascular congestion and she was given 40 mg of IV Lasix in the ER and placed on CPAP. Urine reveals UTI and she was given a dose of Rocephin. Troponin 0.05 but she has a history of chronically elevated troponins. CT abd/pelvis revealed bilateral moderate pleural effusions, no acute processes. Head CT no acute processes. is at the bedside. Patient is sitting up in the stretcher in no distress on CPAP. She states she is feeling better and denies pain. Both contributed to this history of present illness. They have no questions and the patient awaits admission and she will have hemodialysis today. Past Med Surg Social Fam HX - Past Medical History Source: patient, old records reviewed, obtained from family Medical history: coronary artery disease, diabetes, dialysis, hyperlipidemia, hypertension, renal disease, thyroid disease Psychiatric history: anxiety, depression - Past Surgical History Surgical History: hysterectomy (Partial), orthopedic, other (Back surgery), other, vascular surgery - Social History Smoking Status: Never smoker Smokeless Tobacco Status: No Alcohol use: none Drug use: none Occupational status: retired Current living situation: Home, With Family Activity Level: Independent ambulation - Family History Mother Living Status: Hx Family Cardiac Disorders: Yes (CAD) Father Living Status: Hx Family Cancer: Yes (Colon) Hx Family Endocrine Disorder: Yes (DM) Brother Living Status: Hx Family Cancer: Yes (Colon) Hx Family Endocrine Disorder: Yes (DM) Sister Living Status: Hx Family Cardiac Disorders: Yes Hx Family Cancer: Yes (Cervical) Hx Family Endocrine Disorder: Yes (DM) - Additional Family History Additional family history: reviewed and noncontributory to this event Internal Medicine - H&P: Meds Levothyroxine Sodium [Synthroid] 200 mcg PO DAILY 02/08/16 [History] amLODIPine [Norvasc] 10 mg PO DAILY 02/14/16 [History] Atorvastatin [Lipitor] 40 mg PO DAILY 05/26/16 [History] Calcium Acetate [Phos-LO] 1,334 mg PO TIDWM 05/26/16 [History] Duloxetine HCl [Cymbalta] 30 mg PO DAILY 05/26/16 [History] Ergocalciferol (VITAMIN D2) [Vitamin D2] 50,000 unit PO WE 05/26/16 [History] Gabapentin [Neurontin] 300 mg PO DAILY 05/26/16 [History] Hydralazine HCl 50 mg PO Q8H 05/26/16 [History] LORazepam [Ativan] 0.5 - 1 mg PO BID PRN 05/26/16 [History] Metoprolol XL (24 HR) Succ [Toprol Xl] 50 mg PO DAILY 05/26/16 [History] Renal Vitamin [Renal Caps Softgel] 1 mg PO DAILY 05/26/16 [History] Allopurinol [Zyloprim 300 MG] 300 mg PO DAILY 05/27/16 [History] Cinacalcet [Sensipar] 30 mg PO DAILY 01/06/17 [History] Insulin Glargine [Lantus] 10 unit SQ DAILY 02/11/17 [History] Clopidogrel [Plavix] 75 mg PO DAILY 02/27/17 [History] Isosorbide MONOnitrate (24 HR) [Imdur] 60 mg PO DAILY tab.er.24h 03/02/17 [Rx] Losartan Potassium [Cozaar] 50 mg PO DAILY 03/26/17 [History] Oxycodone HCl 15 mg PO TID PRN 03/26/17 [History] Pantoprazole Sodium [Protonix] 40 mg PO DAILY #30 tablet.dr 04/08/17 [Rx] 3 Allergy/AdvReac Type Severity Reaction Status Date / Time IVP DYE AdvReac See Uncoded 03/26/17 09:56 Comments ivp dye AdvReac See Uncoded 03/26/17 09:56 Comments All Systems PM: A 10-system review of systems was performed and is negative for pertinent findings except as documented above in the HPI. - Constitutional Constitutional: as per HPI, no chills, no fever(s), no night sweats - EENT Eyes: no change in vision, no discharge, no pain, no photophobia Ears: no ear discharge, no ear pain, no tinnitus Nose, mouth and throat: no dysphagia, no nasal discharge, no neck pain, no sore throat - Cardiovascular Cardiovascular ROS IM: dyspnea, no chest pain, no diaphoresis, no lightheadedness, no palpitations, no syncope - Respiratory Respiratory: dyspnea, no cough, no wheezing, no excessive phlegm production - Gastrointestinal Gastrointestinal: nausea, no abdominal pain, no diarrhea, no hematemesis, no hematochezia, no melena, no vomiting - Genitourinary Genitourinary: no change in urinary stream, no dysuria, no flank pain, no hematuria - Musculoskeletal Musculoskeletal ROS IM: no numbness, no tingling - Integumentary Integumentary IM: no rash, no unusual bruising - Neurological Neurological ROS: no confusion, no convulsions, no focal weakness, no numbness, no tingling, no tremor(s) Additional comments: states back to her mental baseline - Hematologic/Lymphatic Hematologic/Lymphatic: no easy bruising - Constitutional Vitals: Temp Pulse Resp BP Pulse Ox 97.4 F L 54 18 158/95 96 05/19/17 06:49 05/19/17 09:56 05/19/17 12:20 05/19/17 12:20 05/19/17 09:56 General appearance: Present: A&O X 3, pleasant, no acute distress, obese, answers questions appropriately - Head Head exam: Present: atraumatic, normocephalic - Eye Eye exam: Present: conjuntiva pink, sclera anicteric - Neck Neck exam general surgery: Present: supple, trachea midline. Absent: lymphadenopathy - Respiratory Respiratory exam: Present: decreased breath sounds, rales. Absent: accessory muscle use, respiratory distress, rhonchi, wheezes, tachypnea Additional comments: on cpap during exam - Cardiovascular Cardiovascular exam: Present: bradycardia, RRR, +S1, +S2. Absent: diastolic murmur, gallop, rubs, systolic murmur - GI/Abdominal GI/Abdominal exam: Present: normal bowel sounds, soft, no peritoneal signs. Absent: distended, tenderness - Extremities Exam Extremities exam: Present: warm, radial pulses palpable and symmetrical. Absent : calf tenderness, cyanotic, pedal edema Additional comments: fistula in upper extremity with good bruit and thrill - Neurological Exam Neurological exam: Present: alert, oriented X3, no focal deficits. Absent: pronater drift, facial droop, speech deficit - Skin Skin exam: Present: dry, intact, warm Internal Med - H&P Results - Labs CBC & Chem 7: 05/19/17 07:24 05/19/17 07:24 <Koby Hall P - Last Filed: 05/19/17 18:28> Date of Encounter: 05/19/17 Internal Medicine - H&P: HPI History of present illness: Ms. Moffett is a 71 year old female All Systems PM: A 10-system review of systems was performed and is negative for pertinent findings except as documented above in the HPI. - Constitutional Vitals: Temp Pulse Resp BP Pulse Ox 97.9 F 60 18 147/69 90 05/19/17 16:00 05/19/17 13:14 05/19/17 16:00 05/19/17 18:15 05/19/17 13:14 Internal Med - H&P Results - Labs CBC & Chem 7: 05/19/17 07:24 05/19/17 07:24 - Attending Attestation I examined this patient and my medical decision-making was reviewed with the Resident Physician/CLOTH COLORER. I agree with the documented findings, disposition and treatment plan as described except to the extent set forth below.
[2017-05-19] MEDS: *HR* OxyCODONE Immed Rel 15 MG TABLET PO PRN ×2 (14:22→22:01)
[2017-05-19] MEDS ORDERED: *HR* OxyCODONE Immed Rel 15 MG TABLET PO SCH (15:00)
[2017-05-19] MEDS ORDERED: cefTRIAXone 1,000 MG in Water for inj. (sterile) 20 ML 10 ML IVP SCH ×2 (18:00→21:30)
[2017-05-19] MEDS ORDERED: 0.9 % Sodium Chloride 1,000 ML ONE (18:11)
[2017-05-19] MEDS: Insulin LISPRO 300 UNITS/3 ML VIAL SQ SCH ×2 (19:02→22:29)
[2017-05-19] MEDS: Gabapentin 300 MG CAPSULE PO SCH (20:04)
[2017-05-19] MEDS: hydrALAZINE 25 MG TABLET PO SCH ×2 (21:08→21:29)
[2017-05-19] MEDS: Calcium Acetate 667 MG CAPSULE PO SCH (21:14)
[2017-05-19] MEDS: Metoprolol XL (24 HR) Succ 50 MG TAB.ER.24H PO SCH (21:29)
[2017-05-19] MEDS: amLODIPine 5 MG TABLET PO SCH (21:30)
[2017-05-19] MEDS: Isosorbide MONOnitrate (24 HR) 60 MG TAB.ER.24H PO SCH (21:30)
[2017-05-20] MEDS ORDERED: *HR* LORazepam 0.5 MG TABLET PO PRN (01:26)
[2017-05-20] MEDS: hydrALAZINE 25 MG TABLET PO SCH ×4 (04:49→21:00)
[2017-05-20] MEDS: *HR* OxyCODONE Immed Rel 15 MG TABLET PO PRN ×2 (06:31→21:01)
--- NOTE | 2017-05-20 07:27 | Electrocardiograph Report ---
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
--- NOTE | 2017-05-20 07:28 | Nephrology Progress Note ---
Date of Encounter: 05/20/17 Time of Encounter: 07:27 - Assessment and Plan (1) UTI (urinary tract infection) Current Visit: Yes Status: Acute Weakness likely secondary to UTI Continue antibiotics and management per primary team Qualifiers: Urinary tract infection type: site unspecified Hematuria presence: without hematuria Qualified Code(s): N39.0 - Urinary tract infection, site not specified (2) ESRD (end stage renal disease) on dialysis Current Visit: Yes Status: Chronic BNP 1875, CXR reveals congestive heart failure, CT abd reveals at least moderate size bilateral pleural effusions. Bilateral lower lobe airspace opacities with air bronchograms may represent atelectasis, multifocal pneumonia , or combination thereof. Echo 02/12/17 revealed EF 55-60%, RV hypokinesis, mild pulmonary hypertension Etiology of dyspnea is unclear Continue HD as scheduled MWF Avoid nephrotoxins (3) Diabetes mellitus, type 2 Current Visit: No Status: Chronic AMS prior to arrival. When EMS arrived, her glucose was 58. EMS administered oral glucose which resolved her confusion. Continue close blood glucose monitoring and SSI Qualifiers: Diabetes mellitus complication status: with kidney complications Diabetes mellitus complication detail: with chronic kidney disease Diabetes mellitus intermediate manager insulin use: with [facility] use Chronic kidney disease stage: on chronic dialysis Qualified Code(s): E11.22 - Type 2 diabetes mellitus with diabetic chronic kidney disease; N18.6 - End stage renal disease; N18.6 - End stage renal disease; N18.6 - End stage renal disease; N18.6 - End stage renal disease; Z79.4 - meterman (current) use of insulin; Z79.4 - snf (current ) use of insulin; Z79.4 - snf (current) use of insulin; Z79.4 - meterman (current) use of insulin; Z99.2 - Dependence on renal dialysis; Z99.2 - Dependence on renal dialysis; Z99.2 - Dependence on renal dialysis; Z99.2 - Dependence on renal dialysis (4) Hyperphosphatemia Current Visit: Yes Status: Chronic Continue Phos-Lo Subjective Principal diagnosis: ESRD Interval history: Patient seen and examined. Patient reports left flank pain not controlled with pain meds this AM. She has a long standing h/o back pain and is currently on antibiotics for UTI. Patient completed her HD treatment yesterday without difficulty. Objective - Vital Signs Vital signs: Vital Signs Temp Pulse Resp BP Pulse Ox 05/20/17 06:02 98 F 76 20 144/65 91 05/19/17 23:56 99.5 F 66 20 172/79 98 05/19/17 21:40 91 05/19/17 21:24 98.5 F 71 16 175/76 91 05/19/17 19:27 98.2 F 18 159/75 05/19/17 19:00 133/67 05/19/17 18:45 134/61 05/19/17 18:30 136/62 05/19/17 18:15 147/69 05/19/17 18:00 122/62 05/19/17 17:45 143/65 05/19/17 17:30 142/72 05/19/17 17:15 133/66 05/19/17 17:00 146/67 05/19/17 16:45 157/73 05/19/17 16:30 169/75 05/19/17 16:15 179/85 05/19/17 16:00 97.9 F 18 154/70 Intake and Output 05/19/17 05/19/17 05/20/17 15:59 23:59 07:59 Intake Total 850 / 850 Output Total 3600 / 3600 Balance -2750 / -2750 Intake: IV Fluids 10 10 Rocephin 1,000 MG In Water for 10 inj. (sterile) 10 ML @ 300 mls/ hr IVP Q48H [facility] Rx#:[id number] Oral 240 / 240 Intake, Rinseback and Flushes 600 / 600 Output: Urine 0 / 0 Total Dialysis (HD) Output 3600 / 3600 Other: Weight 68.5 kg Blood Glucose* 397 385 Hemodialysis Net Fluid Removed 3000 (mL) Patient Weight 05/20/17 23:59 Weight 68.5 kg - General Appearance General appearance: Present: well-developed, well-nourished, appears started age , obese EENT: Present: PERRL, mucous membranes moist Neck: Present: no JVD, supple Respiratory: Present: clear Additional Comments: equal breath sounds bilaterally Cardiology: Present: no murmurs, no edema, regular rhythm (bradycardia) Dialysis Vascular Access: Arteriovenous Fistula Gastrointestinal: Present: normoactive bowel sounds, no tenderness, no guarding Integumentary: Present: no rash, warm and dry Neurologic: Present: no focal deficit, alert and oriented x3 Musculoskeletal: Present: no deformities, no erythema Psychiatric: Present: mood/affect appropriate - Lab 05/20/17 06:57 05/20/17 06:57 Most recent lab results Calcium 9.0 mg/dL (8.6-10.3) 05/19/17 07:24 Phosphorus 6.5 mg/dL (2.7-4.5) H 05/19/17 07:24 Magnesium 2.4 mg/dL (1.6-2.6) 05/19/17 07:24 Consult Discharge Plan - Plan Referrals: Hugo Mercedes MD [Primary Care Provider] - 05/30/17 2:00 pm (please follow up as schedule...)
[2017-05-20 07:29] LABS: Basophils # 0.1 K/mcL (0.0-0.2); Basophils % 0.6 %; Eosinophils # 0.1 K/mcL (0.0-0.6); Eosinophils % 1.6 %; Hematocrit 35.8 % (35.3-44.9); Hemoglobin 11.4 g/dL (11.5-15.4); Immature Granulocytes % 0.1 % (0-4); Lymphocytes # 1.8 K/mcL (0.6-4.6); Lymphocytes % 21.5 %; Mean Corpuscular HGB Conc 31.8 g/dL (31.6-35.5); Mean Corpuscular Hemoglobin 31.7 pg (28.0-33.3); Mean Corpuscular Volume 99.4 fL (83.0-100.0); Mean Platelet Volume 11.5 fL (9.4-12.4); Monocytes # 0.9 K/mcL (0.0-1.3); Monocytes % 10.8 %; Neutrophils # 5.4 K/mcL (1.6-8.9); Nucleated Red Blood Cells 0.2 /100 WBC (0); Platelet Count 249 K/mcL (140-400); Segmented Neutrophils % 65.4 %
[2017-05-20] MEDS: Insulin LISPRO 300 UNITS/3 ML VIAL SQ SCH ×3 (07:51→17:10)
[2017-05-20] MEDS: Gabapentin 300 MG CAPSULE PO SCH (07:52)
[2017-05-20] MEDS: Calcium Acetate 667 MG CAPSULE PO SCH ×3 (07:52→17:10)
[2017-05-20] MEDS: Renal Vitamin 1 MG CAPSULE PO SCH (07:52)
[2017-05-20] MEDS: amLODIPine 5 MG TABLET PO SCH (07:53)
[2017-05-20] MEDS: Metoprolol XL (24 HR) Succ 50 MG TAB.ER.24H PO SCH (07:53)
[2017-05-20] MEDS: Isosorbide MONOnitrate (24 HR) 60 MG TAB.ER.24H PO SCH (07:53)
[2017-05-20 08:27] LABS: INR 0.9; Prothrombin Time 9.7 Seconds (9.4-12.1)
[2017-05-20 08:30] LABS: Activated Partial Thrombo Time 21.7 Seconds (26.0-36.0)
[2017-05-20] MEDS ORDERED: Insulin DETEMIR 100 UNIT/ML X5UNITS SQ SCH (09:00)
[2017-05-20] MEDS: Acetaminophen 325 MG TABLET PO PRN (09:23)
[2017-05-20 10:10] LABS: Albumin 3.1 g/dL (3.5-5.7); Bilirubin,Total 0.3 mg/dL (0.3-1.0); Calcium 8.3 mg/dL (8.6-10.3); Globulin 3.2 g/dL (2.4-3.5); Magnesium 2.2 mg/dL (1.6-2.6); Phosphorous 5.6 mg/dL (2.7-4.5); Potassium 4.3 mEq/L (3.5-5.1); Total Protein 6.3 g/dL (6.4-8.9)
--- NOTE | 2017-05-20 10:37 | Internal Med Progress Note ---
Date of Encounter: 05/20/17 Time of Encounter: 10:36 - Assessment and plan (1) Acute and chronic respiratory failure Current Visit: Yes Status: Acute Assessment and plan: Noted to be on home oxygen at 3 L/m via nasal cannula. Currently requiring 4 L/ m, weight down FiO2 as tolerated. Probably related to underlying end-stage renal disease and CHF. Qualifiers: Respiratory failure complication: hypoxia Qualified Code(s): J96.21 - Acute and chronic respiratory failure with hypoxia (2) UTI (urinary tract infection) Current Visit: Yes Status: Acute Assessment and plan: Urinalysis suggestive of UTI, preliminary urine culture grows gram-negative rods. Continue IV Rocephin and follow up final urine culture. Qualifiers: Urinary tract infection type: site unspecified Hematuria presence: without hematuria Qualified Code(s): N39.0 - Urinary tract infection, site not specified (3) Encephalopathy acute Current Visit: Yes Status: Resolved Assessment and plan: Likely metabolic due to hypoglycemia and UTI at admission. Currently at baseline mental status. (4) Hyperlipidemia Current Visit: Yes Status: Chronic Qualifiers: Hyperlipidemia type: unspecified Qualified Code(s): E78.5 - Hyperlipidemia , unspecified (5) Chronic lower back pain Current Visit: Yes Status: Chronic Assessment and plan: Noted to be on narcotic pain medications at home, continue the same. Qualifiers: Back pain laterality: midline Sciatica presence: without sciatica Qualified Code(s): M54.5 - Low back pain; G89.29 - Other chronic pain; G89.29 - Other chronic pain (6) Anemia Current Visit: Yes Status: Chronic Qualifiers: Anemia type: iron deficiency Iron deficiency anemia type: chronic blood loss Qualified Code(s): D50.0 - Iron deficiency anemia secondary to blood loss (chronic) (7) Hypothyroid Current Visit: Yes Status: Chronic Assessment and plan: Continue levothyroxine. Qualifiers: Hypothyroidism type: unspecified Qualified Code(s): E03.9 - Hypothyroidism , unspecified (8) ROMA (obstructive sleep apnea) Current Visit: Yes Status: Chronic (9) ESRD (end stage renal disease) Current Visit: Yes Status: Chronic Assessment and plan: Nephrology on board for hemodialysis needs. Patient received dialysis yesterday , plan for hemodialysis tomorrow. Blood pressure and labs acceptable. (10) HTN (hypertension) Current Visit: Yes Status: Chronic Qualifiers: Hypertension type: essential hypertension Qualified Code(s): I10 - Essential (primary) hypertension (11) CAD (coronary artery disease) Current Visit: Yes Status: Chronic Assessment and plan: Received coronary stents in February 2017, continue Plavix, beta dick and statin. Aspirin has been on hold due to multiple episodes of GI bleed with unclear etiology. Qualifiers: Coronary Disease-Associated Artery/Lesion type: [place] artery [place] vs. transplanted heart: [place] heart Associated angina: without angina Qualified Code(s): I25.10 - Atherosclerotic heart disease of [place] coronary artery without angina pectoris (12) CHF (congestive heart failure) Current Visit: Yes Status: Chronic Qualifiers: Congestive heart failure type: unspecified Congestive heart failure chronicity: chronic Qualified Code(s): I50.9 - Heart failure, unspecified (13) Diabetes Current Visit: Yes Status: Chronic Assessment and plan: Patient is noted to be on insulin infusion pump at home and does follow with endocrinology as outpatient. She is also noted to be on 10 units daily LANTUS, which she is unable to afford at this time. sales marketing manager to check if Lantus can be changed to a different kind of long-acting insulin. Unclear why patient is receiving both insulin infusion pump and subcutaneous basal insulin. Presented with hypoglycemia, however blood sugars are now noted to be elevated. Continue Accu-Chek blood glucose monitoring and basal bolus insulin regimen.Will increase Levemir. Diabetic diet. 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: with [facility] use Qualified Code(s): E11.59 - Type 2 diabetes mellitus with other circulatory complications; Z79.4 - [facility] (current) use of insulin - Subjective Interval history: Continues to report some shortness of breath and fatigue; she just does not know whats wrong with her; no nausea, vomiting, chest pain, leg swelling; reports compliance to HD, received HD in the hospital yesterday; - Constitutional Vitals: Temp Pulse Resp BP Pulse Ox 98 F 76 20 144/65 91 05/20/17 06:02 05/20/17 06:02 05/20/17 06:02 05/20/17 06:02 05/20/17 06:02 General appearance: Present: A&O X 3, pleasant, obese, answers questions appropriately - Respiratory Respiratory exam: Present: CTAB. Absent: accessory muscle use, rales, rhonchi, wheezes - Cardiovascular Cardiovascular exam: Present: RRR, +S1, +S2. Absent: diastolic murmur, gallop, rubs, systolic murmur - GI/Abdominal GI/Abdominal exam: Present: normal bowel sounds, soft, no peritoneal signs. Absent: distended, tenderness - Extremities Exam Extremities exam: Present: full ROM, warm, radial pulses palpable and symmetrical. Absent: calf tenderness, cyanotic, pedal edema - Neurological Exam Neurological exam: Present: CN II-XII intact, oriented X3, no focal deficits. Absent: pronater drift, facial droop, speech deficit Internal Medicine: Result - Labs CBC & Chem 7: 05/20/17 06:57 05/20/17 06:57 Labs: Short CBC 05/20/17 Range/Units 06:57 WBC 8.2 (4.3-11.1) K/mcL Hgb 11.4 L (11.5-15.4) g/dL Hct 35.8 (35.3-44.9) % Plt Count 249 (140-400) K/mcL Neutrophils # 5.4 (1.6-8.9) K/mcL BMP 05/20/17 06:57 Sodium 136 Potassium 4.3 D Chloride 96 L Carbon Dioxide 21 L BUN 38 H Creatinine 5.14 H Glucose 408 H Calcium 8.3 L Liver Function 05/20/17 Range/Units 06:57 Total Bilirubin 0.3 (0.3-1.0) mg/dL AST 12 L (13-39) Units/L ALT 8 (7-52) Units/L Alkaline Phosphatase 120 H (34-104) Units/L Albumin 3.1 L (3.5-5.7) g/dL - ABG Interpretation ABG results: PT/INR, D-dimer PT 9.7 Seconds (9.4-12.1) 05/20/17 06:57 - VTE Documentation of Mechanical Device: Graduated compression elastic hosiery Consult Discharge Plan - Plan Referrals: Hugo Mercedes MD [Primary Care Provider] - 05/30/17 2:00 pm (please follow up as schedule...)
[2017-05-20] MEDS ORDERED: hydrALAZINE 25 MG TABLET PO SCH (16:00)
[2017-05-20] MEDS: *HR* Heparin 5,000 UNIT/ML VIAL SQ SCH (17:10)
[2017-05-20] MEDS: Insulin DETEMIR 100 UNIT/ML X5UNITS SQ SCH (21:00)
[2017-05-20] MEDS ORDERED: cefTRIAXone 1,000 MG in Water for inj. (sterile) 20 ML 10 ML IVP SCH (21:00)
[2017-05-21] MEDS: Insulin LISPRO 300 UNITS/3 ML VIAL SQ SCH ×3 (00:23→13:49)
[2017-05-21] MEDS: *HR* Heparin 5,000 UNIT/ML VIAL SQ SCH (06:02)
[2017-05-21] MEDS: Acetaminophen 325 MG TABLET PO PRN (06:09)
[2017-05-21] MEDS: *HR* OxyCODONE Immed Rel 15 MG TABLET PO PRN (06:09)
--- NOTE | 2017-05-21 07:12 | Nephrology Progress Note ---
Date of Encounter: 05/21/17 Time of Encounter: 07:12 - Assessment and Plan (1) UTI (urinary tract infection) Current Visit: Yes Status: Acute Weakness likely secondary to UTI Continue antibiotics and management per primary team Qualifiers: Urinary tract infection type: site unspecified Hematuria presence: without hematuria Qualified Code(s): N39.0 - Urinary tract infection, site not specified (2) ESRD (end stage renal disease) on dialysis Current Visit: Yes Status: Chronic BNP 1875, CXR reveals congestive heart failure, CT abd reveals at least moderate size bilateral pleural effusions. Bilateral lower lobe airspace opacities with air bronchograms may represent atelectasis, multifocal pneumonia , or combination thereof. Echo 02/12/17 revealed EF 55-60%, RV hypokinesis, mild pulmonary hypertension Etiology of dyspnea is unclear Continue HD as scheduled MWF Avoid nephrotoxins (3) Diabetes mellitus, type 2 Current Visit: No Status: Chronic AMS prior to arrival. When EMS arrived, her glucose was 58. EMS administered oral glucose which resolved her confusion. 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-way use Chronic kidney disease stage: on chronic dialysis Qualified Code(s): E11.22 - Type 2 diabetes mellitus with diabetic chronic kidney disease; N18.6 - End stage renal disease; N18.6 - End stage renal disease; N18.6 - End stage renal disease; N18.6 - End stage renal disease; Z79.4 - joint terminal attack controller (current) use of insulin; Z79.4 - shelter (current ) use of insulin; Z79.4 - shelter (current) use of insulin; Z79.4 - joint terminal attack controller (current) use of insulin; Z99.2 - Dependence on renal dialysis; Z99.2 - Dependence on renal dialysis; Z99.2 - Dependence on renal dialysis; Z99.2 - Dependence on renal dialysis (4) Hyperphosphatemia Current Visit: Yes Status: Chronic Continue Phos-Lo Subjective Principal diagnosis: ESRD Interval history: Patient seen and examined. 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 She reports constipation likely secondary to chronic opiate use and has ongoing left sided abdominal pain not controlled with pain meds. Patent also reports medical history significant for fibromyalgia. Anticipate discharge following HD treatment today. Objective - Vital Signs Vital signs: Vital Signs Temp Pulse Resp BP Pulse Ox 05/21/17 06:57 98.7 F 66 17 157/83 98 05/21/17 03:48 98 F 65 22 162/70 93 05/20/17 23:39 98.3 F 64 16 138/62 92 05/20/17 22:10 98.1 F 67 20 134/64 92 05/20/17 15:27 97.7 F 56 18 128/65 93 05/20/17 12:15 98 F 60 19 113/59 91 Intake and Output 05/20/17 05/20/17 05/21/17 15:59 23:59 07:59 Intake Total 480 / 480 Balance 480 / 480 Intake: Oral 480 / 480 Other: Meal Lunch Percent of Meal Consumed 75% # Voids 1 Weight 69.9 kg Blood Glucose* 157 186 94 Patient Weight 05/21/17 23:59 Weight 69.9 kg - General Appearance General appearance: Present: well-developed, well-nourished, appears started age , obese EENT: Present: PERRL, mucous membranes moist Neck: Present: no JVD, supple Respiratory: Present: clear Additional Comments: equal breath sounds Cardiology: Present: no murmurs, no edema, regular rate, regular rhythm Dialysis Vascular Access: Arteriovenous Fistula Gastrointestinal: Present: normoactive bowel sounds, tenderness (diffuse tenderness to light and deep palpation) Integumentary: Present: no rash, warm and dry Neurologic: Present: no focal deficit, alert and oriented x3 Musculoskeletal: Present: no deformities, no erythema Psychiatric: Present: mood/affect appropriate - Lab 05/21/17 08:02 05/21/17 08:02 Most recent lab results Calcium 8.3 mg/dL (8.6-10.3) L 05/20/17 06:57 Phosphorus 5.6 mg/dL (2.7-4.5) H 05/20/17 06:57 Magnesium 2.2 mg/dL (1.6-2.6) 05/20/17 06:57 - VTE Documentation of Mechanical Device: Graduated compression elastic hosiery Consult Discharge Plan - Plan Referrals: Hugo Mercedes MD [Primary Care Provider] - 05/30/17 2:00 pm (please follow up as schedule...) Prescriptions: Cephalexin [Keflex] 500 mg PO BID #10 capsule
[2017-05-21 08:27] LABS: Calcium 8.1 mg/dL (8.6-10.3); Potassium 4.5 mEq/L (3.5-5.1)
[2017-05-21 08:38] LABS: Hematocrit 35.9 % (35.3-44.9); Hemoglobin 11.6 g/dL (11.5-15.4); Mean Corpuscular HGB Conc 32.3 g/dL (31.6-35.5); Mean Corpuscular Hemoglobin 31.8 pg (28.0-33.3); Mean Corpuscular Volume 98.4 fL (83.0-100.0); Mean Platelet Volume 11.6 fL (9.4-12.4); Platelet Count 272 K/mcL (140-400); Red Blood Count 3.65 M/mcL (3.82-4.97); Red Cell Distribution Width 15.9 % (11.5-14.5)
[2017-05-21] MEDS ORDERED: 0.9 % Sodium Chloride 250 ML IVC PRN (08:40)
[2017-05-21] MEDS ORDERED: 0.9 % Sodium Chloride 1,000 ML PRIME SCH (08:45)
[2017-05-21] MEDS: Calcium Acetate 667 MG CAPSULE PO SCH ×2 (09:59→13:47)
--- NOTE | 2017-05-21 10:53 | Discharge Summary ---
Date of Encounter: 05/21/17 Time of Encounter: 10:51 - Discharge Diagnosis (1) Encephalopathy acute Priority: Primary Status: Resolved (2) Chronic lower back pain Priority: Secondary Status: Chronic Qualifiers: Back pain laterality: midline Sciatica presence: without sciatica Qualified Code(s): M54.5 - Low back pain; G89.29 - Other chronic pain; G89.29 - Other chronic pain (3) Uncontrolled type 2 diabetes mellitus with insulin therapy Priority: Primary Status: Chronic (4) Stage II decubitus ulcer Priority: Secondary Status: Acute Qualifiers: Pressure ulcer location: buttock Laterality: left Qualified Code(s): L89.322 - Pressure ulcer of left buttock, stage 2 (5) UTI (urinary tract infection) Priority: Primary Status: Acute Qualifiers: Urinary tract infection type: site unspecified Hematuria presence: without hematuria Qualified Code(s): N39.0 - Urinary tract infection, site not specified (6) ESRD (end stage renal disease) Priority: Secondary Status: Chronic (7) Acute and chronic respiratory failure Priority: Primary Status: Acute Qualifiers: Respiratory failure complication: hypoxia Qualified Code(s): J96.21 - Acute and chronic respiratory failure with hypoxia (8) CAD (coronary artery disease) Priority: Secondary Status: Chronic Qualifiers: Coronary Disease-Associated Artery/Lesion type: [place] artery [place] vs. transplanted heart: tel[place] heart Associated angina: without angina Qualified Code(s): I25.10 - Atherosclerotic heart disease of tel[place] coronary artery without angina pectoris (9) Chronic diastolic heart failure Priority: Secondary Status: Chronic - Discharge Medications Prescriptions: Cephalexin [Keflex] 500 mg PO BID #10 capsule Home Medications: Levothyroxine Sodium [Synthroid] 200 mcg PO DAILY 02/08/16 [History] amLODIPine [Norvasc] 10 mg PO DAILY 02/14/16 [History] Atorvastatin [Lipitor] 40 mg PO DAILY 05/26/16 [History] Calcium Acetate [Phos-LO] 1,334 mg PO TIDWM 05/26/16 [History] Duloxetine HCl [Cymbalta] 30 mg PO DAILY 05/26/16 [History] Ergocalciferol (VITAMIN D2) [Vitamin D2] 50,000 unit PO WE 05/26/16 [History] Gabapentin [Neurontin] 300 mg PO DAILY 05/26/16 [History] Hydralazine HCl 50 mg PO Q8H 05/26/16 [History] LORazepam [Ativan] 0.5 - 1 mg PO BID PRN 05/26/16 [History] Metoprolol XL (24 HR) Succ [Toprol Xl] 50 mg PO DAILY 05/26/16 [History] Renal Vitamin [Renal Caps Softgel] 1 mg PO DAILY 05/26/16 [History] Allopurinol [Zyloprim 300 MG] 300 mg PO DAILY 05/27/16 [History] Cinacalcet [Sensipar] 30 mg PO DAILY 01/06/17 [History] Insulin Glargine [Lantus] 10 unit SQ DAILY 02/11/17 [History] Clopidogrel [Plavix] 75 mg PO DAILY 02/27/17 [History] Isosorbide MONOnitrate (24 HR) [Imdur] 60 mg PO DAILY tab.er.24h 03/02/17 [Rx] Losartan Potassium [Cozaar] 50 mg PO DAILY 03/26/17 [History] Oxycodone HCl 15 mg PO TID PRN 03/26/17 [History] Pantoprazole Sodium [Protonix] 40 mg PO DAILY #30 tablet.dr 04/08/17 [Rx] Cephalexin [Keflex] 500 mg PO BID #10 capsule 05/21/17 [Rx] Allergies/Adverse Reactions: 3 Allergy/AdvReac Type Severity Reaction Status Date / Time IVP DYE AdvReac See Uncoded 03/26/17 09:56 Comments ivp dye AdvReac See Uncoded 03/26/17 09:56 Comments Date of admission: 05/19/17 13:39 Primary care physician: Hugo Mercedes MD Consults: 05/19/17 20:32 Consult to Nutrition [CONS] Routine Comment: Consulting Provider: NUTRITION Reason for Dietary Consult: MST Score 05/21/17 08:45 Consult to Dialysis [CONS] ONCE 05/21/17 09:42 Consult to Physical Therapy [CONS] Routine Comment: Evaluate, develop and implement POC Reason for Consult: weakness OT [Consult to Occupational Therapy] [CONS] Routine Comment: Evaluate, develop and implement POC Reason for Consult: weakness - Patient Status Disposition: Home, Self-Care Overall status at discharge: patient is progressing back to baseline - Discharge Instructions Follow Up With: Hugo Mercedes MD [Primary Care Provider] - 05/30/17 2:00 pm (please follow up as schedule...) - Diet and Activity Activity: increase activity as tolerated, wear oxygen at all times Diet: diabetic diet, low salt diet Hospital course: Ms. Moffett is a 71 year old female who who went to HD as scheduled and was noted to be short of breath and had altered mental status. EMS was called and she was found to have a blood glucose of 58. She was given oral glucose and brought to the ER for evaluation. The patient is on chronic oxygen at 2 L at home. She has a past medical history significant for CAD, diabetes mellitus, hyperlipidemia, hypertension, end-stage renal diet disease hemodialysis dependent Friday. She also had a cardiac catheterization with angioplasty and stents placed 02/13/17 and is on Plavix and aspirin. Chest x- ray revealed some pulmonary vascular congestion and she was given 40 mg of IV Lasix in the ER and placed on CPAP. Urine reveals UTI and she was given a dose of Rocephin. She was continued her that her cultures grew Klebsiella oxytoca and window switch her to Keflex renally dosed at discharge. She did well with resumption of dialysis. She had no further episodes of hypoglycemia. She does use an insulin pump as well as basal insulin. We will try to get her coverage for her basal insulin however insurance co-pay was higher than what she could afford. I advised patient to general internal medicine physician to see there is any other options regarding her basal insulin as it is causing her much. She is to continue on her insulin pump. She was discharged to finish treatment for urinary tract infection and to continue with dialysis as previously scheduled not the patient had a CT abd/pelvis which revealed bilateral moderate pleural effusions, no acute processes. Head CT no with acute processes. - Time Spent with Patient Total time spent providing and/or coordinating discharge services: Greater than 30 minutes - Constitutional Vitals: Temp Pulse Resp BP Pulse Ox 98.7 F 66 17 157/83 98 05/21/17 06:57 05/21/17 06:57 05/21/17 06:57 05/21/17 06:57 05/21/17 06:57 General appearance: Present: A&O X 3, pleasant, obese, answers questions appropriately Exam: GEN: NAD CVS: RRR. S1, S2, No m/r/g RESP: Diminished with bibasilar crackles ABD: Soft, NT, ND, +BS EXT: Trace edema. 2+ DP. No rashes NEURO: Nonfocal( - VTE Documentation of Mechanical Device: Graduated compression elastic hosiery
--- NOTE | 2017-05-21 11:34 | Physician Discharge Referral ---
- Diagnosis (1) Encephalopathy acute Priority: Primary Status: Resolved (2) Chronic lower back pain Priority: Secondary Status: Chronic (3) Uncontrolled type 2 diabetes mellitus with insulin therapy Priority: Primary Status: Chronic (4) Stage II decubitus ulcer Priority: Secondary Status: Acute (5) UTI (urinary tract infection) Priority: Primary Status: Acute (6) ESRD (end stage renal disease) Priority: Secondary Status: Chronic (7) Acute and chronic respiratory failure Priority: Secondary Status: Acute (8) CAD (coronary artery disease) Priority: Secondary Status: Chronic - Respiratory Orders Smoking Cessation: Smoking cessation has been advised. For more information, call the [place] Tobacco Quit Line at 3-609-LFDA-NOW. - Diet/Nutrition Diet/Nutrition Orders: Renal (diabetic) - Services Needed Following services are medically necessary services: Nursing, Home Health Aide - Transfer Medications Prescriptions: Cephalexin [Keflex] 500 mg PO BID #10 capsule Home Medications: Levothyroxine Sodium [Synthroid] 200 mcg PO DAILY 02/08/16 [History] amLODIPine [Norvasc] 10 mg PO DAILY 02/14/16 [History] Atorvastatin [Lipitor] 40 mg PO DAILY 05/26/16 [History] Calcium Acetate [Phos-LO] 1,334 mg PO TIDWM 05/26/16 [History] Duloxetine HCl [Cymbalta] 30 mg PO DAILY 05/26/16 [History] Ergocalciferol (VITAMIN D2) [Vitamin D2] 50,000 unit PO WE 05/26/16 [History] Gabapentin [Neurontin] 300 mg PO DAILY 05/26/16 [History] Hydralazine HCl 50 mg PO Q8H 05/26/16 [History] LORazepam [Ativan] 0.5 - 1 mg PO BID PRN 05/26/16 [History] Metoprolol XL (24 HR) Succ [Toprol Xl] 50 mg PO DAILY 05/26/16 [History] Renal Vitamin [Renal Caps Softgel] 1 mg PO DAILY 05/26/16 [History] Allopurinol [Zyloprim 300 MG] 300 mg PO DAILY 05/27/16 [History] Cinacalcet [Sensipar] 30 mg PO DAILY 01/06/17 [History] Insulin Glargine [Lantus] 10 unit SQ DAILY 02/11/17 [History] Clopidogrel [Plavix] 75 mg PO DAILY 02/27/17 [History] Isosorbide MONOnitrate (24 HR) [Imdur] 60 mg PO DAILY tab.er.24h 03/02/17 [Rx] Losartan Potassium [Cozaar] 50 mg PO DAILY 03/26/17 [History] Oxycodone HCl 15 mg PO TID PRN 03/26/17 [History] Pantoprazole Sodium [Protonix] 40 mg PO DAILY #30 tablet.dr 04/08/17 [Rx] Cephalexin [Keflex] 500 mg PO BID #10 capsule 05/21/17 [Rx] Allergies/Adverse Reactions: 3 Allergy/AdvReac Type Severity Reaction Status Date / Time IVP DYE AdvReac See Uncoded 03/26/17 09:56 Comments ivp dye AdvReac See Uncoded 03/26/17 09:56 Comments Certification: Further, I certify that my clinical findings support that this patient is homebound (i.e. absences from home require considerable and taxing effort and are for medical reasons or mandaeism services or infrequently or short duration when for other reasons) because: Homebound Reason: Patient requires assistance of a person or device to safely leave home Attestation: My signature below is to certify that this patient is under my care and that I, or nurse practitioner, or a physician's medical library assistant working with me, has a face-to -face encounter with this patient.
[2017-05-21] MEDS ORDERED: 0.9 % Sodium Chloride 2,000 ML ONE (12:40)
[2017-05-21 13:39] VITALS: BP 171/77
[2017-05-21] MEDS: Insulin DETEMIR 100 UNIT/ML X5UNITS SQ SCH (13:46)
[2017-05-21] MEDS: amLODIPine 5 MG TABLET PO SCH (13:47)
[2017-05-21] MEDS: Isosorbide MONOnitrate (24 HR) 60 MG TAB.ER.24H PO SCH (13:47)
[2017-05-21] MEDS: Gabapentin 300 MG CAPSULE PO SCH (13:47)
[2017-05-21] MEDS: Metoprolol XL (24 HR) Succ 50 MG TAB.ER.24H PO SCH (13:48)
[2017-05-21] MEDS: hydrALAZINE 25 MG TABLET PO SCH (13:48)
[2017-05-21] MEDS: Renal Vitamin 1 MG CAPSULE PO SCH (13:48)
== END 2017-05-21 14:18 | disposition home or self-care (01) | DRG 689 ==
LOC: 2ANU 06:47 → EMEROO 06:47 → 2ANU 12:46
PROVIDERS: ADMIT Internal Medicine; ATTEND Internal Medicine

== ENCOUNTER 2017-09-19 10:12 | Observation (INO) ==
[2017-09-19] MEDS ORDERED: Aspirin 81 MG TAB.CHEW PO ONE (10:25)
--- NOTE | 2017-09-19 10:41 | Emergency Department Note ---
Disposition Clinical Impression: Chest pain Qualifiers: Chest pain type: unspecified Qualified Code(s): R07.9 - Chest pain, unspecified Disposition: Admitted As Inpatient Condition: Fair Referrals: Hugo Mercedes MD [Primary Care Provider] - Forms: ED Satisfaction Letter Time of Disposition: 13:21 Chest Pain HPI - General Chief Complaint: ED Chest Pain Stated Complaint: CP, shortness of breath Time Seen by Provider: 09/19/17 10:23 Source: patient Mode of arrival: EMS Limitations: no limitations Vital Signs Reviewed: Yes Nursing Notes Reviewed: Yes - History of Present Illness HPI Narrative: 71-year-old female presents for evaluation of left-sided chest pain. She states that this began yesterday afternoon however she was awoken at 3:00 AM with an increase in severity of her pain. She also complains of generalized weakness and fatigue.. She is a Friday dialysis patient. She went to dialysis this morning and did receive a full treatment. During her dialysis, she became bradycardic in the 40s and hypotensive. She describes the pain as both dull and intermittently sharp. She states that yesterday the pain did radiate into her left upper extremity however has not done so since early this morning. She complains of a nonproductive but mild cough as well as some nausea. She denies any fevers or chills. Pt complaint: chest pain Onset (ago): day(s) (Yesterday afternoon) Duration: gradually worsening Pain Location: left chest Severity scale (1-10): 4 Quality: sharp, dull Pain Radiation: LUE Improves with: nothing Worsens with: nothing Associated symptoms: Reports: nausea - Related Data Home Medications Medication Instructions Recorded Confirmed Levothyroxine Sodium [Synthroid] 200 mcg PO DAILY 02/08/16 09/19/17 Atorvastatin [Lipitor] 40 mg PO DAILY 05/26/16 09/19/17 Calcium Acetate [Phos-LO] 1,334 mg PO TIDWM 05/26/16 09/19/17 Duloxetine HCl [Cymbalta] 30 mg PO DAILY 05/26/16 09/19/17 Ergocalciferol (VITAMIN D2) 50,000 unit PO WE 05/26/16 09/19/17 [Vitamin D2] Hydralazine HCl 50 mg PO Q8H 05/26/16 09/19/17 LORazepam [Ativan] 0.5 - 1 mg PO BID PRN 05/26/16 09/19/17 Metoprolol XL (24 HR) Succ [Toprol 50 mg PO BID 05/26/16 09/19/17 Xl] Renal Vitamin [Renal Caps Softgel] 1 mg PO DAILY 05/26/16 09/19/17 Allopurinol [Zyloprim 300 MG] 300 mg PO DAILY 05/27/16 09/19/17 Clopidogrel [Plavix] 75 mg PO DAILY 02/27/17 09/19/17 Losartan Potassium [Cozaar] 100 mg PO DAILY 03/26/17 09/19/17 Ezetimibe [Ezetimibe] 10 mg PO DAILY 09/19/17 09/19/17 Insulin Pump Cartridge [Insulin 1 device SQ AD 09/19/17 09/19/17 Pump] Omeprazole [PriLOSEC] 40 mg PO BID 09/19/17 09/19/17 OxyCODONE Immed Rel [Roxicodone 10 10 mg PO TID PRN 09/19/17 09/19/17 MG] Previous Rx's Medication Instructions Recorded Isosorbide MONOnitrate (24 HR) 60 mg PO DAILY tab.er.24h 03/02/17 [Imdur] Allergies Allergy/AdvReac Type Severity Reaction Status Date / Time IVP DYE AdvReac See Uncoded 03/26/17 09:56 Comments ivp dye AdvReac See Uncoded 03/26/17 09:56 Comments All systems ED: reviewed and negative except as stated. Constitutional: Denies: fever, chills, weakness, weight change Eyes: Denies: eye pain, eye discharge, vision change ENT ED: Denies: ear pain, throat pain, dental pain, hearing loss, epistaxis, congestion, dysphagia Cardiovascular: Reports: as per HPI, chest pain. Denies: palpitations, dyspnea on exertion, edema, syncope Respiratory: Reports: as per HPI, cough. Denies: dyspnea, wheezes, hemoptysis, stridor, sputum production Gastrointestinal: Reports: as per HPI, nausea. Denies: abdominal pain, vomiting , diarrhea, constipation, hematemesis, melena, hematochezia Genitourinary: Denies: dysuria, frequency, hematuria, discharge Musculoskeletal: Denies: back pain, neck pain, arthralgia, myalgia Integumentary: Denies: rash, abrasion, lesions Neurological: Denies: headache, weakness, numbness, paresthesias, confusion, abnormal gait, vertigo Psychiatric: Denies: anxiety, depression, suicidal thoughts, homicidal thoughts , auditory hallucinations, visual hallucinations Endocrine: Denies: fatigue Hematological/Lymphatic: Denies: easy bleeding, easy bruising Allergic/Immunologic: Denies: facial swelling, urticaria Chest Pain PMH - Past Medical History Medical history: Reports: coronary artery disease, diabetes, dialysis, hyperlipidemia, hypertension, renal disease, thyroid disease Surgical history: Reports: hysterectomy, orthopedic, other, other, vascular surgery Psychiatric history: Reports: anxiety, depression - Social History Smoking Status: Never smoker Alcohol use: Reports: none Drug use: Reports: none Physical Exam - General Limitations: no limitations General appearance: alert, lethargic - Head Head exam: atraumatic, normocephalic, normal inspection - Eye Eye exam: Present: normal appearance, PERRL, EOMI. Absent: nystagmus - ENT ENT exam: mucous membranes moist - Neck Neck exam: Present: normal inspection, full ROM, trachea midline - Chest Chest inspection: Present: normal inspection, symmetric chest wall rise - Respiratory Respiratory exam: Present: normal lung sounds bilaterally. Absent: respiratory distress, wheezes, stridor, accessory muscle use, prolonged expiratory phase - Cardiovascular Cardiovascular exam: Present: bradycardia, irregular rhythm, normal heart sounds - Abdominal Exam Abdominal exam: Present: soft, Non-Tender, normal bowel sounds - Extremities Exam Extremities exam: Present: normal inspection, full ROM. Absent: tenderness, pedal edema - Neurological Exam Neurological exam: Present: alert, oriented X3 - Psychiatric Psychiatric exam: Present: normal affect, normal mood - Skin Skin exam: Present: warm, dry, intact, normal color. Absent: rash Course - Reevaluation(s) Reevaluation #1: 71-year-old was at dialysis developed chest pain has a history of coronary artery disease and recent stents in the last several months. A consultation obtained with cardiology and nephrology will admit to hospitalist Time: 15:33 - Consultations Consultation #1: Discussed with Dr. Tomas, we will see in consult. Time: 13:20 Consultation #2: Discussed with Dr. Jorge Daugherty will see in consult. Time: 13:20 Consultation #3: Discussed with Dr. Wynn, admit. Time: 15:25 Vital Signs Temperature 98 F 09/19/17 10:24 Pulse Rate 54 09/19/17 10:24 Respiratory Rate 14 09/19/17 10:24 Blood Pressure 205/84 09/19/17 10:24 O2 Sat by Pulse Oximetry 96 09/19/17 10:24 Temperature 98 F 09/19/17 10:45 Pulse Rate 53 09/19/17 14:17 Respiratory Rate 12 09/19/17 14:17 Blood Pressure 188/78 09/19/17 14:17 O2 Sat by Pulse Oximetry 95 09/19/17 14:17 Oxygen Delivery Oxygen Delivery Nasal Cannula Chest Pain - Medical Records Medical records reviewed: Yes I reviewed the patient's medical records. - Lab Data Result diagrams: 09/19/17 11:02 09/19/17 11:02 Lab Results 09/19/17 09/19/17 09/19/17 Range/Units 11:02 11:02 11:02 WBC 8.7 (4.3-11.1) K/mcL RBC 3.50 L (3.82-4.97) M/mcL Hgb 11.8 (11.5-15.4) g/dL Hct 34.5 L (35.3-44.9) % MCV 98.6 (83.0-100.0) fL MCH 33.7 H (28.0-33.3) pg MCHC 34.2 (31.6-35.5) g/dL RDW 15.7 H (11.5-14.5) % Plt Count 225 (140-400) K/mcL MPV 11.0 (9.4-12.4) fL Immature Gran % 0.3 (0-4) % Seg Neutrophils % 59.1 % Lymphocytes % 28.7 % Monocytes % 9.5 % Eosinophils % 1.8 % Basophils % 0.6 % Neutrophils # 5.1 (1.6-8.9) K/mcL Lymphocytes # 2.5 (0.6-4.6) K/mcL Monocytes # 0.8 (0.0-1.3) K/mcL Eosinophils # 0.2 (0.0-0.6) K/mcL Basophils # 0.1 (0.0-0.2) K/mcL PT 11.0 (9.4-12.1) Seconds INR 1.0 APTT 26.5 (26.0-36.0) Seconds Sodium 136 (136-145) mEq/L Potassium 3.4 L (3.5-5.1) mEq/L Chloride 98 (98-107) mEq/L Carbon Dioxide 27 (23-29) mEq/L BUN 30 H (8-23) mg/dL Creatinine 4.39 H (0.60-1.20) mg/dL Est GFR ( Amer) 12 L (> 60) Est GFR (Non-Af Amer) 10 L (> 60) BUN/Creatinine Ratio 7 (6-26) Glucose 238 H (70-105) mg/dL Calculated Osmolality 296 (280-300) Calcium 8.2 L (8.6-10.3) mg/dL Troponin I 0.04 H* (< 0.04) ng/mL B-Natriuretic Peptide (Less than 100) pg/mL 09/19/17 Range/Units 11:02 WBC (4.3-11.1) K/mcL RBC (3.82-4.97) M/mcL Hgb (11.5-15.4) g/dL Hct (35.3-44.9) % MCV (83.0-100.0) fL MCH (28.0-33.3) pg MCHC (31.6-35.5) g/dL RDW (11.5-14.5) % Plt Count (140-400) K/mcL MPV (9.4-12.4) fL Immature Gran % (0-4) % Seg Neutrophils % % Lymphocytes % % Monocytes % % Eosinophils % % Basophils % % Neutrophils # (1.6-8.9) K/mcL Lymphocytes # (0.6-4.6) K/mcL Monocytes # (0.0-1.3) K/mcL Eosinophils # (0.0-0.6) K/mcL Basophils # (0.0-0.2) K/mcL PT (9.4-12.1) Seconds INR APTT (26.0-36.0) Seconds Sodium (136-145) mEq/L Potassium (3.5-5.1) mEq/L Chloride (98-107) mEq/L Carbon Dioxide (23-29) mEq/L BUN (8-23) mg/dL Creatinine (0.60-1.20) mg/dL Est GFR ( Amer) (> 60) Est GFR (Non-Af Amer) (> 60) BUN/Creatinine Ratio (6-26) Glucose (70-105) mg/dL Calculated Osmolality (280-300) Calcium (8.6-10.3) mg/dL Troponin I (< 0.04) ng/mL B-Natriuretic Peptide 2796 H (Less than 100) pg/mL Heart Score - Score History: Moderately Suspicious EKG: Non Specific repolarisation Disturbance Age: Greater than 65 Risk Factors: Equal/Greater than 3 risk factor or history of atherosclerotic disease Troponin: 1-3x normal limit HEART Score Total: 7
[2017-09-19 11:13] LABS: Basophils # 0.1 K/mcL (0.0-0.2); Basophils % 0.6 %; Eosinophils # 0.2 K/mcL (0.0-0.6); Eosinophils % 1.8 %; Hematocrit 34.5 % (35.3-44.9); Hemoglobin 11.8 g/dL (11.5-15.4); Immature Granulocytes % 0.3 % (0-4); Lymphocytes # 2.5 K/mcL (0.6-4.6); Lymphocytes % 28.7 %; Mean Corpuscular HGB Conc 34.2 g/dL (31.6-35.5); Mean Corpuscular Hemoglobin 33.7 pg (28.0-33.3); Mean Corpuscular Volume 98.6 fL (83.0-100.0); Monocytes # 0.8 K/mcL (0.0-1.3); Monocytes % 9.5 %; Neutrophils # 5.1 K/mcL (1.6-8.9); Platelet Count 225 K/mcL (140-400); Red Cell Distribution Width 15.7 % (11.5-14.5); Segmented Neutrophils % 59.1 %
[2017-09-19 11:21] LABS: Activated Partial Thrombo Time 26.5 Seconds (26.0-36.0)
[2017-09-19 11:32] LABS: Calcium 8.2 mg/dL (8.6-10.3); Potassium 3.4 mEq/L (3.5-5.1)
[2017-09-19 11:43] LABS: Troponin I 0.04 ng/mL (< 0.04)
[2017-09-19] MEDS ORDERED: Naloxone 0.4 MG/ML INJ IVP PRN (15:36)
[2017-09-19] MEDS ORDERED: *HR* OxyCODONE Immed Rel 5 MG TABLET PO PRN (15:39)
--- NOTE | 2017-09-19 15:42 | Internal Med History&Physical ---
Date of Encounter: 09/19/17 Time of Encounter: 15:37 Internal Medicine - H&P: HPI Chief complaint: CHEST PAIN Admitted From: Emergency Dept Plans for Post Hospital Care: Home History of present illness: Ms. Moffett is a 71 year old female with history of CAD status post stent in April 2017 under care of materials supervisor at [facility] and seen 6 weeks ago, and a stage renal disease on hemodialysis Friday and Friday, diabetes mellitus on insulin pump, diastolic heart failure was sent to ER from dialysis unit for the evaluation of left-sided chest pain. She states that chest pain began yesterday afternoon rating almost 8 x 10 and she took a few Tylenol that took edge off but not completely relieved. Today she was a scheduled for hemodialysis where her pain became intense almost none by 10 bowls dull and sharp in nature, nonradiating after completion the dialysis and she became bradycardic and 40s and also hypotensive She also complains of generalized weakness and fatigue. In ER slight raised troponin was found and aspirin was given. ER physician talked to materials supervisor who advised to admitted chest pain rule out ACS with cardiac enzyme monitoring. ER physician also consulted electronic sales and service technician. Eventually hospitalist got called to admit the patient for further cardiac workup. Patient denies fever, chills, nausea, vomiting, headache, dizziness, abdominal pain, urinary or bowel complaint. She complains of chronic nonproductive but mild cough Past Med Surg Social Fam HX - Past Medical History Medical history: coronary artery disease, diabetes, dialysis, hyperlipidemia, hypertension, renal disease, thyroid disease Psychiatric history: anxiety, depression - Past Surgical History Surgical History: hysterectomy, orthopedic, other, other, vascular surgery - Social History Smoking Status: Never smoker Smokeless Tobacco Status: No Alcohol use: none Drug use: none - Family History Mother Living Status: Hx Family Cardiac Disorders: Yes (CAD) Father Living Status: Hx Family Cancer: Yes (Colon) Hx Family Endocrine Disorder: Yes (DM) Brother Living Status: Hx Family Cancer: Yes (Colon) Hx Family Endocrine Disorder: Yes (DM) Sister Living Status: Hx Family Cardiac Disorders: Yes Hx Family Cancer: Yes (Cervical) Hx Family Endocrine Disorder: Yes (DM) Internal Medicine - H&P: Meds Levothyroxine Sodium [Synthroid] 200 mcg PO DAILY 02/08/16 [History] Atorvastatin [Lipitor] 40 mg PO DAILY 05/26/16 [History] Calcium Acetate [Phos-LO] 1,334 mg PO TIDWM 05/26/16 [History] Duloxetine HCl [Cymbalta] 30 mg PO DAILY 05/26/16 [History] Ergocalciferol (VITAMIN D2) [Vitamin D2] 50,000 unit PO WE 05/26/16 [History] Hydralazine HCl 50 mg PO Q8H 05/26/16 [History] LORazepam [Ativan] 0.5 - 1 mg PO BID PRN 05/26/16 [History] Metoprolol XL (24 HR) Succ [Toprol Xl] 50 mg PO BID 05/26/16 [History] Renal Vitamin [Renal Caps Softgel] 1 mg PO DAILY 05/26/16 [History] Allopurinol [Zyloprim 300 MG] 300 mg PO DAILY 05/27/16 [History] Clopidogrel [Plavix] 75 mg PO DAILY 02/27/17 [History] Isosorbide MONOnitrate (24 HR) [Imdur] 60 mg PO DAILY tab.er.24h 03/02/17 [Rx] Losartan Potassium [Cozaar] 100 mg PO DAILY 03/26/17 [History] Ezetimibe [Ezetimibe] 10 mg PO DAILY 09/19/17 [History] Insulin Pump Cartridge [Insulin Pump] 1 device SQ AD 09/19/17 [History] Omeprazole [PriLOSEC] 40 mg PO BID 09/19/17 [History] OxyCODONE Immed Rel [Roxicodone 10 MG] 10 mg PO TID PRN 09/19/17 [History] 3 Allergy/AdvReac Type Severity Reaction Status Date / Time IVP DYE AdvReac See Uncoded 03/26/17 09:56 Comments ivp dye AdvReac See Uncoded 03/26/17 09:56 Comments All Systems PM: as documented above in the HPI. - Constitutional Vitals: Temp Pulse Resp BP Pulse Ox 98 F 53 12 188/78 95 09/19/17 10:45 09/19/17 14:17 09/19/17 14:17 09/19/17 14:17 09/19/17 14:17 Exam: General appearance: No acute distress, A&O X 3. Rating chest pain 3 x 10 Head exam: Atraumatic Eye exam: EOMI, PERRLA ENT exam: Moist oral mucosa Neck nontender, supple Respiratory exam: Bibasilar crepitation Cardiovascular exam: Bradycardia, sinus rhythm. no systolic murmur Abdominal exam: Soft, nontender, nondistended, positive bowel sounds Extremities exam: No calf tenderness, trace pedal edema bilaterally. Skin-no rash, warm, dry, intact Neurological exam: Alert, awake, oriented 3, CN II-XII intact, no focal deficits. No facial droop. Normal speech. Internal Med - H&P Results - Labs CBC & Chem 7: 09/19/17 11:02 09/19/17 11:02 Labs: Short CBC 09/19/17 Range/Units 11:02 WBC 8.7 (4.3-11.1) K/mcL Hgb 11.8 (11.5-15.4) g/dL Hct 34.5 L (35.3-44.9) % Plt Count 225 (140-400) K/mcL Neutrophils # 5.1 (1.6-8.9) K/mcL BMP 09/19/17 11:02 Sodium 136 Potassium 3.4 L Chloride 98 Carbon Dioxide 27 BUN 30 H Creatinine 4.39 H Glucose 238 H Calcium 8.2 L Cardiac Enzymes 09/19/17 Range/Units 11:02 Troponin I 0.04 H* (< 0.04) ng/mL - Impressions ITS Impressions Chest X-Ray 09/19/17 10:25 IMPRESSION: Findings suggest congestive heart failure D/ / Kamar Bunn MD / Kamar Bunn MD Interpreting Provider: Kamar Bunn MD - Assessment and plan (1) Chest pain, rule out acute myocardial infarction Current Visit: Yes Status: Acute Assessment and plan: High risk for cardiac disease. History of CAD status post stent on April 2017. Chest pain better after aspirin slight raised troponin but no acute ST finding on EKG. ER physician already consulted materials supervisor who advised to admit for cardiac workup and rule out ACS. Continue aspirin, Plavix, nitroglycerin, statin, oxygen. Decreased the dose of beta dick as patient has bradycardia. (2) CHF exacerbation Current Visit: Yes Status: Acute Assessment and plan: History of diastolic heart failure. Raised BNP, chest x-ray with vascular congestion. Patient also had shortness of breath. Lasix 40 mg IV 1 given and will see the response to decide further dose. A strict I&O's. Credit Report Checker's on board. Qualifiers: Heart failure type: diastolic Qualified Code(s): I50.33 - Acute on chronic diastolic (congestive) heart failure (3) ESRD (end stage renal disease) on dialysis Current Visit: Yes Status: Chronic Assessment and plan: Continue routine hemodialysis. Consulted electronic sales and service technician. (4) Diabetes mellitus Current Visit: Yes Status: Chronic Assessment and plan: Continue insulin pump as home dose regime. Accu-Chek. Diabetic diet. Qualifiers: Diabetes mellitus type: type 2 Diabetes mellitus intermodal dispatcher insulin use: with senior care use Diabetes mellitus complication status: with kidney complications Qualified Code(s): E11.21 - Type 2 diabetes mellitus with diabetic nephropathy; Z79.4 - terminal clerk (current) use of insulin (5) DVT prophylaxis Current Visit: Yes Status: Acute Assessment and plan: SCDs - Time Spent With Patient Total time spent is greater than 50% in coordination of care (as documented) at patient's floor/unit and/or counseling patient: 25 - 35 minutes
[2017-09-19] MEDS ORDERED: Furosemide 40 MG/4 ML VIAL IVP ONE (15:44)
[2017-09-19] MEDS ORDERED: (Insulin Pump Cartridge [Insulin Pump] 1 DEVICE) SQ SCH (15:45)
[2017-09-19] MEDS: hydrALAZINE 25 MG TABLET PO SCH ×2 (18:19→23:38)
[2017-09-19] MEDS: Calcium Acetate 667 MG CAPSULE PO SCH (18:19)
[2017-09-19] MEDS ORDERED: Metoprolol XL (24 HR) Succ 50 MG TAB.ER.24H PO SCH (21:00)
[2017-09-20 03:30] LABS: Basophils # 0.1 K/mcL (0.0-0.2); Basophils % 0.7 %; Eosinophils # 0.2 K/mcL (0.0-0.6); Eosinophils % 2.4 %; Hematocrit 33.9 % (35.3-44.9); Hemoglobin 11.6 g/dL (11.5-15.4); Immature Granulocytes % 0.2 % (0-4); Lymphocytes # 2.8 K/mcL (0.6-4.6); Lymphocytes % 30.6 %; Mean Corpuscular HGB Conc 34.2 g/dL (31.6-35.5); Mean Corpuscular Hemoglobin 33.9 pg (28.0-33.3); Mean Corpuscular Volume 99.1 fL (83.0-100.0); Mean Platelet Volume 11.6 fL (9.4-12.4); Monocytes # 0.8 K/mcL (0.0-1.3); Monocytes % 9.2 %; Neutrophils # 5.2 K/mcL (1.6-8.9); Nucleated Red Blood Cells 0.2 /100 WBC (0); Platelet Count 223 K/mcL (140-400); Red Blood Count 3.42 M/mcL (3.82-4.97); Red Cell Distribution Width 15.7 % (11.5-14.5); Segmented Neutrophils % 56.9 %
[2017-09-20 03:49] LABS: Calcium 8.9 mg/dL (8.6-10.3); Chol/HDL Ratio 2.8 (0-4.9); Potassium 3.5 mEq/L (3.5-5.1)
[2017-09-20] MEDS: hydrALAZINE 25 MG TABLET PO SCH ×2 (06:47→16:19)
--- NOTE | 2017-09-20 08:21 | Nephrology Consult Note ---
Date of Encounter: 09/20/17 Time of Encounter: 07:10 Assessment and Plan (1) ESRD (end stage renal disease) on dialysis Current Visit: Yes Status: Chronic She completed all of her HD yesterday. Next HD is planned for Friday. I will be available this weekend if needed, please feel free to call or page me with any renal questions. (2) Chest pain, rule out acute myocardial infarction Current Visit: Yes Status: Acute As per primary team. History of Present Illness - Reason for Consult Consult date: 09/19/17 end stage renal disease Requesting physician: Sonia Wynn - Chief Complaint Presented with CP; Hx of ESRD - History of Present Illness Ursula Moffett is a very pleasant 71 y/o AAF with a pmh of CAD, DM, ESRD on HD M/ W/ (follows with Dr. Louise) who presented with chest pain that has been worsening recently. CP peaked in intensity while finishing dialysis yesterday at her usual dialysis unit located at [facility] in [place], [place]. Regarding her dialysis history, she has been on HD for at least 3 years; makes very little urine; has a LUE AVF that she reported as working well without prolonged bleeding; the last fistulogram was in July with her vascular surgeon Dr. Call in [place], [place]. She said the CP remains present, dull, moderate intensity, worsens with exertion, in a band like pattern primarily in the left chest. She was getting ready to undergo an Echo while I interviewed and examined her. Past Med Surg Social Fam HX - Past Medical History Medical history: coronary artery disease, diabetes, dialysis, hyperlipidemia, hypertension, renal disease, thyroid disease Psychiatric history: anxiety, depression - Past Surgical History Surgical History: hysterectomy, orthopedic, other, other, vascular surgery - Social History Smoking Status: Never smoker Smokeless Tobacco Status: No Alcohol use: none Drug use: none - Family History Mother Living Status: Hx Family Cardiac Disorders: Yes (CAD) Father Living Status: Hx Family Cancer: Yes (Colon) Hx Family Endocrine Disorder: Yes (DM) Brother Living Status: Hx Family Cancer: Yes (Colon) Hx Family Endocrine Disorder: Yes (DM) Sister Living Status: Hx Family Cardiac Disorders: Yes Hx Family Cancer: Yes (Cervical) Hx Family Endocrine Disorder: Yes (DM) Medications and Allergies Levothyroxine Sodium [Synthroid] 200 mcg PO DAILY 02/08/16 [History] Atorvastatin [Lipitor] 40 mg PO DAILY 05/26/16 [History] Calcium Acetate [Phos-LO] 1,334 mg PO TIDWM 05/26/16 [History] Duloxetine HCl [Cymbalta] 30 mg PO DAILY 05/26/16 [History] Ergocalciferol (VITAMIN D2) [Vitamin D2] 50,000 unit PO WE 05/26/16 [History] Hydralazine HCl 50 mg PO Q8H 05/26/16 [History] LORazepam [Ativan] 0.5 - 1 mg PO BID PRN 05/26/16 [History] Metoprolol XL (24 HR) Succ [Toprol Xl] 50 mg PO BID 05/26/16 [History] Renal Vitamin [Renal Caps Softgel] 1 mg PO DAILY 05/26/16 [History] Allopurinol [Zyloprim 300 MG] 300 mg PO DAILY 05/27/16 [History] Clopidogrel [Plavix] 75 mg PO DAILY 02/27/17 [History] Isosorbide MONOnitrate (24 HR) [Imdur] 60 mg PO DAILY tab.er.24h 03/02/17 [Rx] Losartan Potassium [Cozaar] 100 mg PO DAILY 03/26/17 [History] Ezetimibe [Ezetimibe] 10 mg PO DAILY 09/19/17 [History] Insulin Pump Cartridge [Insulin Pump] 1 device SQ AD 09/19/17 [History] Omeprazole [PriLOSEC] 40 mg PO BID 09/19/17 [History] OxyCODONE Immed Rel [Roxicodone 10 MG] 10 mg PO TID PRN 09/19/17 [History] 3 Allergy/AdvReac Type Severity Reaction Status Date / Time IVP DYE AdvReac See Uncoded 03/26/17 09:56 Comments ivp dye AdvReac See Uncoded 03/26/17 09:56 Comments Review of Systems All Systems: reviewed and no additional remarkable complaints except as stated Exam - Vital Signs Vital signs: Initial Vital Signs Temp Pulse Resp BP Pulse Ox 98 F 54 14 205/84 96 09/19/17 10:24 09/19/17 10:24 09/19/17 10:24 09/19/17 10:24 09/19/17 10:24 Vital Signs - Last 8 Hours Temp Pulse Resp BP Pulse Ox 09/20/17 07:03 98.1 F 49 18 199/80 99 09/20/17 05:16 97.8 F 50 16 172/67 94 Intake and Output 09/19/17 09/20/17 09/20/17 23:59 07:59 15:59 Intake Total 0 / 0 Balance 0 / 0 Intake: Oral 0 / 0 Other: Weight 74.559 kg Blood Glucose* 161 91 Patient Weight 09/20/17 23:59 Weight 74.559 kg - General Appearance General appearance: well-developed, well-nourished, appears started age, frail EENT: ATNC, PERRL, mucous membranes moist Neck: supple Respiratory: clear Cardiology: no edema, normal S1, normal S2 - Dialysis Access Dialysis Vascular Access: Arteriovenous Fistula (Left upper arm AVF with excellent thrill and bruit) thrill: Yes bruit: Yes Gastrointestinal: normoactive bowel sounds, no tenderness, no guarding Integumentary: warm and dry Neurologic: no focal deficit, no asterixis, alert and oriented x3 Musculoskeletal: no deformities, no erythema, no cyanosis Psychiatric: mood/affect appropriate (very friendly ), cooperative Results - Lab Results 09/20/17 03:13 09/20/17 03:13 Most recent lab results Calcium 8.9 mg/dL (8.6-10.3) 09/20/17 03:13 I reviewed progress notes, labs, meds, vitals, imaging Consult Discharge Plan - Plan Referrals: Hugo Mercedes MD [Primary Care Provider] -
[2017-09-20] MEDS: Calcium Acetate 667 MG CAPSULE PO SCH ×2 (08:52→11:44)
[2017-09-20] MEDS ORDERED: Renal Vitamin 1 MG CAPSULE PO SCH (09:00)
[2017-09-20] MEDS ORDERED: (Ezetimibe [Ezetimibe] 10 MG) PO SCH (09:00)
[2017-09-20] MEDS ORDERED: Isosorbide MONOnitrate (24 HR) 60 MG TAB.ER.24H PO SCH (09:00)
[2017-09-20] MEDS ORDERED: amLODIPine 5 MG TABLET PO SCH (12:45)
--- NOTE | 2017-09-20 13:05 | Cardiology Consult Note ---
Date of Encounter: 09/20/17 Time of Encounter: 12:45 Assessment and Plan (1) Elevated troponin Current Visit: Yes Status: Acute Mild troponin elevation (0.04) in the setting of ESRD on HD and severely elevated SBP non-diagnostic for ACS. No significant ECG changes when compared to previous. Chest pain is reproducible upon exam. [facility] 2016 s/p PCI to pLAD, mRCA, and dLCx. Patient reports compliance with DAPT. TTE this admission shows preserved LVEF with normal wall motion. No further testing recommended at this time. Continue asa, statin, BB, plavix, and nitrates. (2) Essential (primary) hypertension Current Visit: Yes Status: Acute Blood pressure uncontrolled upon admission. Will resume home norvasc and clonidine. Will stop lopressor and start coreg to improve BP control. Continue to monitor. (3) Renal failure Current Visit: No Status: Acute Nephrology following. On HD, M-W-. Qualifiers: Renal failure chronicity: chronic Chronic kidney disease stage: on chronic dialysis Qualified Code(s): N18.6 - End stage renal disease; Z99.2 - Dependence on renal dialysis (4) CAD (coronary artery disease) Current Visit: No Status: Chronic Plan as above, DAPT, statin, BB, nitrates. Qualifiers: Coronary Disease-Associated Artery/Lesion type: [place] artery [place] vs. transplanted heart: [place] heart Associated angina: without angina Qualified Code(s): I25.10 - Atherosclerotic heart disease of [place] coronary artery without angina pectoris Discussion w patient/family: The assessment and plan as outlined above was discussed with the patient and/or family members who expressed understanding and agreement. All questions were answered. Thank you for involving us in the care of your patient. Please call with any questions. The patient will be discussed and reviewed with Dr. Mckenzie Florentino; changes to be made accordingly. History of Present Illness Consult date: 09/20/17 Requesting physician: Sonia Wynn Consult reason: Elevated trop Chief complaint: Chest pain History of present illness: Ms. Moffett is a 71 year old female with PMHx significant of HTN, HLD, ESRD on HD , and CAD s/p PCI who presented to the ED after dialysis yesterday with complaints of chest discomfort. Associated symptoms include low pulse rate and elevated blood pressure. Patient reports intermittent chest pressure; symptoms worsens with any body movement and improve when "holding still." Reports compliance with all medications. ECG upon arrival demonstrated SB with first degree AVB. Initial troponin was 0.04. Blood pressure noted to be severely elevated upon admission with SBP > 200. Prior CV testing: TTE 02/2017: LVEF 55-60%, mild PH, normal wall motion LHC 02/2017: s/p successful PTCA/BRYNN to pLAD, mRCA, and dLCx. Past Med Surg Social Fam HX - Past Medical History Medical history: coronary artery disease, diabetes, dialysis, hyperlipidemia, hypertension, renal disease, thyroid disease Psychiatric history: anxiety, depression - Past Surgical History Surgical History: hysterectomy, orthopedic, other, other, vascular surgery - Social History Smoking Status: Never smoker Smokeless Tobacco Status: No Alcohol use: none Drug use: none - Family History Mother Living Status: Hx Family Cardiac Disorders: Yes (CAD) Father Living Status: Hx Family Cancer: Yes (Colon) Hx Family Endocrine Disorder: Yes (DM) Brother Living Status: Hx Family Cancer: Yes (Colon) Hx Family Endocrine Disorder: Yes (DM) Sister Living Status: Hx Family Cardiac Disorders: Yes Hx Family Cancer: Yes (Cervical) Hx Family Endocrine Disorder: Yes (DM) Medications and Allergies Levothyroxine Sodium [Synthroid] 200 mcg PO DAILY 02/08/16 [History] Atorvastatin [Lipitor] 40 mg PO DAILY 05/26/16 [History] Calcium Acetate [Phos-LO] 1,334 mg PO TIDWM 05/26/16 [History] Duloxetine HCl [Cymbalta] 30 mg PO DAILY 05/26/16 [History] Ergocalciferol (VITAMIN D2) [Vitamin D2] 50,000 unit PO WE 05/26/16 [History] Hydralazine HCl 50 mg PO Q8H 05/26/16 [History] LORazepam [Ativan] 0.5 - 1 mg PO BID PRN 05/26/16 [History] Metoprolol XL (24 HR) Succ [Toprol Xl] 50 mg PO BID 05/26/16 [History] Renal Vitamin [Renal Caps Softgel] 1 mg PO DAILY 05/26/16 [History] Allopurinol [Zyloprim 300 MG] 300 mg PO DAILY 05/27/16 [History] Clopidogrel [Plavix] 75 mg PO DAILY 02/27/17 [History] Isosorbide MONOnitrate (24 HR) [Imdur] 60 mg PO DAILY tab.er.24h 03/02/17 [Rx] Losartan Potassium [Cozaar] 100 mg PO DAILY 03/26/17 [History] Ezetimibe [Ezetimibe] 10 mg PO DAILY 09/19/17 [History] Insulin Pump Cartridge [Insulin Pump] 1 device SQ AD 09/19/17 [History] Omeprazole [PriLOSEC] 40 mg PO BID 09/19/17 [History] OxyCODONE Immed Rel [Roxicodone 10 MG] 10 mg PO TID PRN 09/19/17 [History] 3 Allergy/AdvReac Type Severity Reaction Status Date / Time IVP DYE AdvReac See Uncoded 03/26/17 09:56 Comments ivp dye AdvReac See Uncoded 03/26/17 09:56 Comments All Systems Review: The remainder of the systems were reviewed and are negative - Cardiovascular Cardiovascular: as per HPI Physical Examination Vital Signs, Last 4 Hours Temp Pulse Resp BP Pulse Ox 09/20/17 11:26 98.3 F 68 16 162/78 95 General: Conversant HEENT: Atraumatic, Normocephaly Cardiac: Reg Rate and Rhythm (bradycardiac) Lungs: Normal Breath Sounds Neuro: Alert and responsive Abdomen: Soft Skin: No rashes noted on visualized skin, Other (left upper arm AV fistula) Musculoskeletal: Other (chest wall tenderness present) Extremities: No Edema, Normal Pulses Results 09/20/17 03:13 09/20/17 03:13 Lab Results 09/20/17 09/20/17 03:13 03:13 WBC 9.1 Hgb 11.6 Hct 33.9 L Plt Count 223 Sodium 138 Potassium 3.5 Chloride 100 Carbon Dioxide 28 BUN 39 H Creatinine 5.28 H Glucose 114 H Calcium 8.9 Active Medications Allopurinol (Zyloprim) 300 mg PO DAILY [facility] Stop: 03/22/18 09:01 Last Admin: 09/20/17 08:53 Dose: 300 mg Amlodipine Besylate (Norvasc) 10 mg PO DAILY CINDY PRN Reason: Protocol Stop: 03/22/18 12:46 Last Admin: 09/20/17 12:59 Dose: 10 mg Atorvastatin Calcium (Lipitor) 40 mg PO DAILY [facility] Stop: 03/22/18 09:01 Last Admin: 09/20/17 08:52 Dose: 40 mg Calcium Acetate (Phos-Lo) 1,334 mg PO TIDWM CINDY Stop: 03/21/18 17:01 Last Admin: 09/20/17 11:44 Dose: 1,334 mg Clopidogrel Bisulfate (Plavix) 75 mg PO DAILY CINDY Stop: 03/21/18 15:46 Last Admin: 09/20/17 08:52 Dose: 75 mg Duloxetine HCl (Cymbalta) 30 mg PO DAILY CINDY Stop: 03/22/18 09:01 Last Admin: 09/20/17 08:53 Dose: 30 mg Ergocalciferol (Drisdol (50,000 Unit)) 50,000 unit PO We@0900 [facility] Stop: 03/26/18 09:01 Hydralazine HCl (Hydralazine) 50 mg PO Q8H CINDY Stop: 03/21/18 15:46 Last Admin: 09/20/17 06:47 Dose: 50 mg Isosorbide Mononitrate (Imdur) 60 mg PO DAILY CINDY Stop: 03/22/18 09:01 Last Admin: 09/20/17 08:52 Dose: 60 mg Levothyroxine Sodium (Synthroid) 200 mcg PO DAILY [facility] Stop: 03/22/18 09:01 Last Admin: 09/20/17 08:53 Dose: 200 mcg Losartan Potassium (Cozaar) 100 mg PO DAILY [facility] Stop: 03/22/18 09:01 Last Admin: 09/20/17 08:53 Dose: 100 mg Metoprolol Tartrate (Lopressor) 25 mg PO Q6HR CINDY Stop: 03/21/18 18:01 Last Admin: 09/20/17 11:44 Dose: 25 mg Naloxone HCl (Narcan) 0.4 mg IVP Q2MIN PRN PRN Reason: SEE COMMENTS Stop: 03/21/18 15:37 Omeprazole (Prilosec) 40 mg PO BID [facility] Stop: 03/21/18 21:01 Last Admin: 09/20/17 08:52 Dose: 40 mg Oxycodone HCl (Roxicodone) 10 mg PO TID PRN PRN Reason: Pain Last Admin: 09/19/17 21:20 Dose: 10 mg Pharmacy Profile Note (Patient Taking Own Medication) 0 each PO DAILY CINDY Stop: 03/22/18 09:01 Last Admin: 09/20/17 08:55 Dose: Not Given Pharmacy Profile Note (Patient Taking Own Medication) 0 each SQ AD CINDY Stop: 03/21/18 15:46 Last Admin: 09/19/17 18:19 Dose: 1 each Vitamin B Complex/Vit C/Folic Acid (Renal Caps Softgel) 1 mg PO DAILY CINDY Stop: 03/22/18 09:01 Last Admin: 09/20/17 08:52 Dose: 1 mg - Imaging and Cardiology Echo: report reviewed Cardiac cath: report reviewed Other Results: 12 hour tele: avg HR=52 SB. No signficant pause. - EKG Interpretation EKG results cardiology: personally reviewed, normal ECG Consult Discharge Plan - Plan Referrals: Hugo Mercedes MD [Primary Care Provider] -
[2017-09-20] MEDS ORDERED: cloNIDine HCl 0.1 MG TABLET PO SCH (13:45)
--- NOTE | 2017-09-20 15:43 | Discharge Summary ---
- NOTES TO OUTPATIENT PROVIDER Notes to Outpatient Provider: Follow-up with Cardiology in 2 months Orders not resulted at time of discharge: Pending orders 09/21/17 04:00 Basic Metabolic Panel AM 0400 CBC [Complete Blood Count] [HEME] AM 0400 09/22/17 04:00 Basic Metabolic Panel AM 0400 CBC [Complete Blood Count] [HEME] AM 0400 09/23/17 04:00 Basic Metabolic Panel AM 0400 CBC [Complete Blood Count] [HEME] AM 0400 Date of Encounter: 09/20/17 Time of Encounter: 15:30 - Discharge Diagnosis (1) Chest pain, rule out acute myocardial infarction Priority: Primary Status: Acute Assessment and Plan: Reproducible upon palpation, likely musculoskeletal. No evidence of EKG changes , and new wall motion abnormalities on echo with preserved ejection fraction. Troponin elevation likely related to ESRD. No further workup. Appreciate cardiology input. (2) CHF exacerbation Priority: Primary Status: Acute Assessment and Plan: Dialysis on Friday. Qualifiers: Heart failure type: diastolic Qualified Code(s): I50.33 - Acute on chronic diastolic (congestive) heart failure (3) ESRD (end stage renal disease) on dialysis Priority: Secondary Status: Chronic Assessment and Plan: Continue routine hemodialysis. Next session Friday. (4) Diabetes mellitus Priority: Secondary Status: Chronic Assessment and Plan: Continue insulin pump as home dose regime. Accu-Chek. Diabetic diet. Qualifiers: Diabetes mellitus type: type 2 Diabetes mellitus retirement insulin use: with endband sizer use Diabetes mellitus complication status: with kidney complications Qualified Code(s): E11.21 - Type 2 diabetes mellitus with diabetic nephropathy; Z79.4 - retirement (current) use of insulin (5) History of coronary artery disease Priority: Primary Status: Acute Assessment and Plan: Prior CV testing: TTE 02/2017: LVEF 55-60%, mild PH, normal wall motion LHC 02/2017: s/p successful PTCA/BRYNN to pLAD, mRCA, and dLCx. Continue aspirin, Plavix and Coreg. Hospital course: Ms. Moffett is a 71 year old female with prior medical history of CAD status post left heart catheter in February 2017 with PCI to pLAD, mRCA, and dLCx currently on DAPT, hypertension, diabetes, ESRD, hypothyroidism, hyperlipidemia, depression who presented to the emergency room with left-sided precordial reproducible chest pain. Initial troponin was 0.04 withsubsequent elevation. EKG showed sinus bradycardia but no significant ST or T-wave changes. Echo was performed which showed a preserved LVEF of 55%, left ventricular hypertrophy, severe pulmonary hypertension with moderate tricuspid regurgitation and mild reduction in RV function with dilatation. He was seen by cardiology and based on no new wall motion abnormalities on echo and negative troponin/EKG, no further workup was pursued. Nephrology also was consult and recommended to increase blood pressure medication doses better control hypertension. She had a hypertensive urgency with poor blood pressure of 205/96 on admission. We have advised patient to maintain a close follow-up with cardiology which is scheduled in 2 months. She will undergo dialysis on Friday. Discharge discussed with: patient, family - Time Spent with Patient Total time spent providing and/or coordinating discharge services: Greater than 30 minutes - Discharge Medications Prescriptions: Aspirin [Adult Aspirin Regimen] 81 mg PO DAILY 30 Days #30 tablet. Carvedilol [Coreg] 12.5 mg PO BIDWM 30 Days #60 tablet Hydralazine HCl 50 mg PO TID #90 tablet Home Medications: Levothyroxine Sodium [Synthroid] 200 mcg PO DAILY 02/08/16 [History] Atorvastatin [Lipitor] 40 mg PO DAILY 05/26/16 [History] Calcium Acetate [Phos-LO] 1,334 mg PO TIDWM 05/26/16 [History] Duloxetine HCl [Cymbalta] 30 mg PO DAILY 05/26/16 [History] Ergocalciferol (VITAMIN D2) [Vitamin D2] 50,000 unit PO WE 05/26/16 [History] LORazepam [Ativan] 0.5 - 1 mg PO BID PRN 05/26/16 [History] Renal Vitamin [Renal Caps Softgel] 1 mg PO DAILY 05/26/16 [History] Allopurinol [Zyloprim 300 MG] 300 mg PO DAILY 05/27/16 [History] Clopidogrel [Plavix] 75 mg PO DAILY 02/27/17 [History] Isosorbide MONOnitrate (24 HR) [Imdur] 60 mg PO DAILY tab.er.24h 03/02/17 [Rx] Losartan Potassium [Cozaar] 100 mg PO DAILY 03/26/17 [History] Ezetimibe 10 mg PO DAILY 09/19/17 [History] Insulin Pump Cartridge [Insulin Pump] 1 device SQ AD 09/19/17 [History] Omeprazole [PriLOSEC] 40 mg PO BID 09/19/17 [History] OxyCODONE Immed Rel [Roxicodone 10 MG] 10 mg PO TID PRN 09/19/17 [History] Aspirin [Adult Aspirin Regimen] 81 mg PO DAILY 30 Days #30 tablet. 09/20/17 [ Rx] Carvedilol [Coreg] 12.5 mg PO BIDWM 30 Days #60 tablet 09/20/17 [Rx] Hydralazine HCl 50 mg PO TID #90 tablet 09/20/17 [Rx] amLODIPine [Norvasc] 10 mg PO DAILY tablet 09/20/17 [Rx] Allergies/Adverse Reactions: 3 Allergy/AdvReac Type Severity Reaction Status Date / Time IVP DYE AdvReac See Uncoded 03/26/17 09:56 Comments ivp dye AdvReac See Uncoded 03/26/17 09:56 Comments Date of admission: 09/19/17 15:38 Primary care physician: Hugo Mercedes MD Consults: 09/19/17 18:10 Consult to Nutrition [CONS] Routine Comment: Consulting Provider: NUTRITION Reason for Dietary Consult: MST Score Consult to Pastoral Services [CONS] Routine Comment: Discharging clinician: Jonathan Mejia Anticipated date of discharge: 09/20/17 - Constitutional Vitals: Temp Pulse Resp BP Pulse Ox 98.3 F 68 16 162/78 95 09/20/17 11:26 09/20/17 11:26 09/20/17 11:26 09/20/17 11:26 09/20/17 11:26 Exam: Physical exam Gen: Comfortable, laying in bed, in no visible distress HEENT: Normocephalic, atraumatic. No conjunctival icterus. Moist oral mucosa. Neck: Supple Lungs: Clear to auscultation, no foreign sounds Heart: Normal S1-S2, no murmurs rubs or gallops Abdomen: Normoactive bowel sounds, no guarding rigidity or tenderness Extremities: No edema clubbing or cyanosis Neuro: Alert oriented 3, no focal deficits Skin: No skin lesions - Patient Status Disposition: Home, Self-Care Condition: Good Functional capacity at discharge: independent ambulation Overall status at discharge: patient is progressing back to baseline - Discharge Instructions Follow Up With: Hugo Mercedes MD [Primary Care Provider] - Additional Instructions: Hemodialysis on 09/22/2017 Follow-up with cardiology in 2 months. - Diet and Activity Activity: resume usual activities as tolerated Diet: advance to your usual diet, low fat, low cholesterol - VTE Documentation of Mechanical Device: Intermittent pneumatic compression device
[2017-09-20 15:54] VITALS: BP 182/74
[2017-09-20 16:20] LABS: Bilirubin,Urine Negative (Negative); Blood,Urine Large (Negative); Clarity,Urine Turbid (Clear); Color,Urine Dark Yellow (Yellow); Glucose,Urine (UA) Normal (Normal); Ketones,Urine Negative (Negative); Leukocyte Esterase,Urine Large (Negative); Nitrite,Urine Negative (Negative); PH,Urine 6.5 pH Units (5.0-8.0); Protein,Urine >=1000 mg/dL (Neg-Trace); Specific Gravity,Urine 1.022 (1.010-1.025); Urobilinogen,Urine Normal (Normal)
[2017-09-20 16:23] LABS: Bacteria,Urine None Seen per hpf (None-Few); Squamous Epithelial Cell,Urine Many per lpf (None-Few); WBC,Urine TNTC per hpf (0-3)
--- NOTE | 2017-09-22 06:27 | Electrocardiograph Report ---
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
== END 2017-09-20 16:55 | disposition home or self-care (01) ==
LOC: EMEROO 10:12 → 2ANU 10:12
PROVIDERS: ADMIT General Practice; ATTEND General Practice

== ENCOUNTER 2017-11-07 04:47 | Inpatient (IN) ==
--- NOTE | 2017-11-07 04:55 | Emergency Department Note ---
Disposition Clinical Impression: Abdominal cramping, generalized Low back pain Qualifiers: Chronicity: chronic Back pain laterality: bilateral Sciatica presence: without sciatica Qualified Code(s): M54.5 - Low back pain; G89.29 - Other chronic pain Disposition: Admitted As Inpatient Condition: Good Referrals: Hugo Mercedes MD [Primary Care Provider] - Time of Disposition: 07:43 General Adult HPI - General Stated complaint: back pain Time Seen by Provider: 11/07/17 04:54 Source: patient, EMS Limitations: no limitations Nursing Notes Reviewed: Yes Vital Signs Reviewed: Yes - History of Present Illness HPI Narrative: Chronic low back pain that has gotten increasingly worse since Friday. This is approximately 4 days ago. Was unable to do dialysis due to the pain. She is owing to be missing another episode of dialysis today. Denies any shortness of breath or chest pain. Pain Scale: 10 - Related Data Home Medications Medication Instructions Recorded Confirmed Levothyroxine Sodium [Synthroid] 200 mcg PO DAILY 02/08/16 09/19/17 Atorvastatin [Lipitor] 40 mg PO DAILY 05/26/16 09/19/17 Calcium Acetate [Phos-LO] 1,334 mg PO TIDWM 05/26/16 09/19/17 Duloxetine HCl [Cymbalta] 30 mg PO DAILY 05/26/16 09/19/17 Ergocalciferol (VITAMIN D2) 50,000 unit PO WE 05/26/16 09/19/17 [Vitamin D2] LORazepam [Ativan] 0.5 - 1 mg PO BID PRN 05/26/16 09/19/17 Renal Vitamin [Renal Caps Softgel] 1 mg PO DAILY 05/26/16 09/19/17 Allopurinol [Zyloprim 300 MG] 300 mg PO DAILY 05/27/16 09/19/17 Clopidogrel [Plavix] 75 mg PO DAILY 02/27/17 09/19/17 Losartan Potassium [Cozaar] 100 mg PO DAILY 03/26/17 09/19/17 Ezetimibe 10 mg PO DAILY 09/19/17 09/19/17 Insulin Pump Cartridge [Insulin 1 device SQ AD 09/19/17 09/19/17 Pump] Omeprazole [PriLOSEC] 40 mg PO BID 09/19/17 09/19/17 OxyCODONE Immed Rel [Roxicodone 10 10 mg PO TID PRN 09/19/17 09/19/17 MG] Previous Rx's Medication Instructions Recorded Isosorbide MONOnitrate (24 HR) 60 mg PO DAILY tab.er.24h 03/02/17 [Imdur] Aspirin [Adult Aspirin Regimen] 81 mg PO DAILY 30 Days #30 09/20/17 tablet. Carvedilol [Coreg] 12.5 mg PO BIDWM 30 Days #60 tablet 09/20/17 Hydralazine HCl 50 mg PO TID #90 tablet 09/20/17 amLODIPine [Norvasc] 10 mg PO DAILY tablet 09/20/17 Allergies Allergy/AdvReac Type Severity Reaction Status Date / Time IVP DYE AdvReac See Uncoded 03/26/17 09:56 Comments ivp dye AdvReac See Uncoded 03/26/17 09:56 Comments All systems ED: reviewed and negative except as stated. Constitutional: Denies: fever, chills ENT ED: Denies: congestion Cardiovascular: Denies: chest pain, palpitations, syncope Respiratory: Denies: cough, dyspnea Gastrointestinal: Denies: abdominal pain (She denies abdominal pain however on exam she does grimace with pain.), nausea, vomiting, diarrhea, hematemesis, melena, hematochezia Musculoskeletal: Reports: back pain. Denies: neck pain Integumentary: Denies: rash Past Medical History - Past Medical History Attestation: Yes The following information was validated with the patient. Source: patient Medical history: Reports: coronary artery disease, diabetes, dialysis, hyperlipidemia, hypertension, renal disease, thyroid disease Surgical history: Reports: hysterectomy, orthopedic, other, other, vascular surgery Psychiatric history: Reports: anxiety, depression - Social History Smoking Status: Never smoker Smokeless Tobacco Status: No Alcohol use: Reports: none Drug use: Reports: none Physical Exam - General Limitations: no limitations General appearance: alert, in no apparent distress - Head Head exam: atraumatic, normocephalic, normal inspection - Eye Eye exam: Present: normal appearance, PERRL, EOMI - ENT ENT exam: normal exam, normal oropharynx, mucous membranes moist - Neck Neck exam: Present: normal inspection, full ROM, trachea midline - Chest Chest inspection: Present: normal inspection, symmetric chest wall rise - Respiratory Respiratory exam: Present: normal lung sounds bilaterally. Absent: respiratory distress, accessory muscle use - Cardiovascular Cardiovascular exam: Present: regular rate, normal rhythm, normal heart sounds - Abdominal Exam Abdominal exam: Present: soft, tenderness (Diffusely). Absent: distention, guarding, rebound, rigidity, organomegaly, Banda's sign, Rovsing's sign, tenderness at McBurney's Point - Extremities Exam Extremities exam: Present: normal inspection, full ROM, normal capillary refill. Absent: tenderness, pedal edema - Back Exam Back exam: Present: normal inspection, full ROM. Absent: tenderness - Neurological Exam Neurological exam: Present: alert, oriented X3 - Psychiatric Psychiatric exam: Present: normal affect, normal mood - Skin Skin exam: Present: warm, dry, intact, normal color Course Course Narrative: Female patient presents emergency department complaining of lower back pain that began on Friday. This was 4 days ago. Patient is a dialysis patient. She was unable to go to dialysis on Friday due to the pain. She is supposed to have dialysis again today but states that she is in too much pain ago. She complains of low back pain. She states she has had pain before and had back surgery however she had have the hardware removed his her body rejected it. She is well appearing resting in bed. However whenever I attempt to move her she sates that the pain in her back is intense. On exam her lung sounds are clear heart tones are normal. I sent her abdomen she grimaces. There is no rigidity no distention no masses. She complains of lower back pain whenever she tries to move at all. She screams out in pain. We will get basic lab work on patient provide her with Percocet for pain and get a CT of her abdomen secondary to the pain. She states that she sees Dr. Louise for dialysis. She does not make any urine. - Reevaluation(s) Reevaluation #1: Despite pain medication patient still having back pain. She is able to sleep while here however whenever he wake her up she states that her pain is back. Patient does appear to be fluid overloaded on her CT scan. She also has a distended gallbladder with gallstones. No elevation in her liver enzymes or bilirubin. We will admit patient to the hospital for further evaluation as well as dialysis. - Consultations Consultation #1: I spoke with Dr Louise. She is agreeable to admission. Time: 07:34 Consultation #2: Dr Sarabia accepted patient in stable condition. Time: 07:43 Vital Signs Temperature 98 F 11/07/17 04:48 Pulse Rate 60 11/07/17 04:48 Respiratory Rate 20 11/07/17 04:48 Blood Pressure 154/68 11/07/17 04:48 O2 Sat by Pulse Oximetry 95 11/07/17 04:48 Temperature 98 F 11/07/17 04:48 Pulse Rate 55 11/07/17 07:02 Respiratory Rate 20 11/07/17 07:02 Blood Pressure 163/78 11/07/17 07:02 O2 Sat by Pulse Oximetry 97 11/07/17 07:02 Oxygen Delivery Oxygen Delivery Nasal Cannula Medical Decision Making - Medical Records Medical records reviewed: Yes I reviewed the patient's medical records. - Lab Data Lab results reviewed: Yes I reviewed the patient's lab results. Result diagrams: 11/07/17 05:13 Lab Results 11/07/17 11/07/17 Range/Units 05:13 05:13 WBC 11.4 H (4.3-11.1) K/mcL RBC 3.26 L (3.82-4.97) M/mcL Hgb 10.7 L (11.5-15.4) g/dL Hct 32.0 L (35.3-44.9) % MCV 98.2 (83.0-100.0) fL MCH 32.8 (28.0-33.3) pg MCHC 33.4 (31.6-35.5) g/dL RDW 14.6 H (11.5-14.5) % Plt Count 333 (140-400) K/mcL MPV 10.7 (9.4-12.4) fL Immature Gran % 0.6 (0-4) % Seg Neutrophils % 67.0 % Lymphocytes % 16.6 % Monocytes % 12.7 % Eosinophils % 2.6 % Basophils % 0.5 % Neutrophils # 7.6 (1.6-8.9) K/mcL Lymphocytes # 1.9 (0.6-4.6) K/mcL Monocytes # 1.4 H (0.0-1.3) K/mcL Eosinophils # 0.3 (0.0-0.6) K/mcL Basophils # 0.1 (0.0-0.2) K/mcL Total Bilirubin 0.4 (0.3-1.0) mg/dL Direct Bilirubin 0.0 (0.0-0.2) mg/dL Indirect Bilirubin 0.4 (0.0-1.2) mg/dL AST 13 (13-39) Units/L ALT 8 (7-52) Units/L Alkaline Phosphatase 91 (34-104) Units/L Serum Total Protein 6.6 (6.4-8.9) g/dL Albumin 3.2 L (3.5-5.7) g/dL Globulin 3.4 (2.4-3.5) g/dL Albumin/Globulin Ratio 0.9 L (1.1-2.2) Lipase < 3 L (11-82) Units/L - Radiology Data Radiology results reviewed: Yes I reviewed the patient's radiology results. Abdomen/Pelvis CT 11/07/17 04:57 IMPRESSION: Hydropic gallbladder with layering gallstones. Correlate with cholestatic parameters. Consider ultrasound or nuclear medicine HIDA scan evaluation if there is concern for cholecystitis. Diffuse urinary bladder wire wall thickening, out of proportion for degree of underdistention. Correlate with urinalysis. Features of severe volume overload, including small to moderate bilateral effusions, severe body wall anasarca, mesenteric edema and small volume ascites. Cannot exclude superimposed aspiration or pneumonia within areas of atelectatic lung. 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 No new compression deformity. D/ / Walker Mustafa / Walker Mustafa Interpreting Provider: Walker Mustafa - EKG Data EKG #1 EKG attestation: Yes I reviewed and interpreted this EKG. EKG results narrative: Sinus bradycardia at a rate of 57. NV interval is 202. QRS duration is 94. QT is 453. QTC is 447. No signs of acute ischemia. No significant change from previous EKG dated 12/14/2013.
[2017-11-07] MEDS ORDERED: *HR* OxyCODONE/APAP 7.5/325 TABLET PO ONE (04:58)
[2017-11-07 05:40] LABS: Basophils # 0.1 K/mcL (0.0-0.2); Basophils % 0.5 %; Eosinophils # 0.3 K/mcL (0.0-0.6); Eosinophils % 2.6 %; Hemoglobin 10.7 g/dL (11.5-15.4); Immature Granulocytes % 0.6 % (0-4); Lymphocytes # 1.9 K/mcL (0.6-4.6); Lymphocytes % 16.6 %; Mean Corpuscular HGB Conc 33.4 g/dL (31.6-35.5); Mean Corpuscular Hemoglobin 32.8 pg (28.0-33.3); Mean Corpuscular Volume 98.2 fL (83.0-100.0); Mean Platelet Volume 10.7 fL (9.4-12.4); Monocytes # 1.4 K/mcL (0.0-1.3); Monocytes % 12.7 %; Neutrophils # 7.6 K/mcL (1.6-8.9); Platelet Count 333 K/mcL (140-400); Red Blood Count 3.26 M/mcL (3.82-4.97); Red Cell Distribution Width 14.6 % (11.5-14.5)
[2017-11-07 05:55] LABS: Alanine Aminotransferase 8 Units/L (7-52); Albumin 3.2 g/dL (3.5-5.7); Albumin/Globulin Ratio 0.9 (1.1-2.2); Alkaline Phosphatase 91 Units/L (34-104); Aspartate Amino Transferase 13 Units/L (13-39); Bilirubin,Indirect 0.4 mg/dL (0.0-1.2); Bilirubin,Total 0.4 mg/dL (0.3-1.0); Globulin 3.4 g/dL (2.4-3.5); Lipase < 3 Units/L (11-82); Total Protein 6.6 g/dL (6.4-8.9)
[2017-11-07] MEDS ORDERED: *HR* FentaNYL (PF) 100 MCG/2 ML VIAL IVP ONE (07:00)
--- NOTE | 2017-11-07 07:53 | Emergency Department Note ---
Disposition Clinical Impression: Abdominal cramping, generalized Low back pain Qualifiers: Chronicity: chronic Back pain laterality: bilateral Sciatica presence: without sciatica Qualified Code(s): M54.5 - Low back pain Disposition: Admitted As Inpatient Condition: Good Referrals: Hugo Mercedes MD [Primary Care Provider] - General Adult HPI - General Chief complaint: ED Back Pain/Injury Stated complaint: back pain Time Seen by Provider: 11/07/17 04:54 Source: patient, EMS Limitations: no limitations Nursing Notes Reviewed: Yes Vital Signs Reviewed: Yes - History of Present Illness Pain Scale: 10 - Related Data Home Medications Medication Instructions Recorded Confirmed Levothyroxine Sodium [Synthroid] 200 mcg PO DAILY 02/08/16 09/19/17 Atorvastatin [Lipitor] 40 mg PO DAILY 05/26/16 09/19/17 Calcium Acetate [Phos-LO] 1,334 mg PO TIDWM 05/26/16 09/19/17 Duloxetine HCl [Cymbalta] 30 mg PO DAILY 05/26/16 09/19/17 Ergocalciferol (VITAMIN D2) 50,000 unit PO WE 05/26/16 09/19/17 [Vitamin D2] LORazepam [Ativan] 0.5 - 1 mg PO BID PRN 05/26/16 09/19/17 Renal Vitamin [Renal Caps Softgel] 1 mg PO DAILY 05/26/16 09/19/17 Allopurinol [Zyloprim 300 MG] 300 mg PO DAILY 05/27/16 09/19/17 Clopidogrel [Plavix] 75 mg PO DAILY 02/27/17 09/19/17 Losartan Potassium [Cozaar] 100 mg PO DAILY 03/26/17 09/19/17 Ezetimibe 10 mg PO DAILY 09/19/17 09/19/17 Insulin Pump Cartridge [Insulin 1 device SQ AD 09/19/17 09/19/17 Pump] Omeprazole [PriLOSEC] 40 mg PO BID 09/19/17 09/19/17 OxyCODONE Immed Rel [Roxicodone 10 10 mg PO TID PRN 09/19/17 09/19/17 MG] Previous Rx's Medication Instructions Recorded Isosorbide MONOnitrate (24 HR) 60 mg PO DAILY tab.er.24h 03/02/17 [Imdur] Aspirin [Adult Aspirin Regimen] 81 mg PO DAILY 30 Days #30 09/20/17 tablet. Carvedilol [Coreg] 12.5 mg PO BIDWM 30 Days #60 tablet 09/20/17 Hydralazine HCl 50 mg PO TID #90 tablet 09/20/17 amLODIPine [Norvasc] 10 mg PO DAILY tablet 09/20/17 Allergies Allergy/AdvReac Type Severity Reaction Status Date / Time IVP DYE AdvReac See Uncoded 03/26/17 09:56 Comments ivp dye AdvReac See Uncoded 03/26/17 09:56 Comments Constitutional: Denies: fever, chills ENT ED: Denies: congestion Cardiovascular: Denies: chest pain, palpitations, syncope Respiratory: Denies: cough, dyspnea Gastrointestinal: Denies: abdominal pain (She denies abdominal pain however on exam she does grimace with pain.), nausea, vomiting, diarrhea, hematemesis, melena, hematochezia Musculoskeletal: Reports: back pain. Denies: neck pain Integumentary: Denies: rash Past Medical History - Past Medical History Medical history: Reports: coronary artery disease, diabetes, dialysis, hyperlipidemia, hypertension, renal disease, thyroid disease Surgical history: Reports: hysterectomy, orthopedic, other, other, vascular surgery Psychiatric history: Reports: anxiety, depression - Social History Smoking Status: Never smoker Smokeless Tobacco Status: No Alcohol use: Reports: none Drug use: Reports: none Physical Exam - General Limitations: no limitations General appearance: alert, in no apparent distress Course Vital Signs Temperature 98 F 11/07/17 04:48 Pulse Rate 60 11/07/17 04:48 Respiratory Rate 20 11/07/17 04:48 Blood Pressure 154/68 11/07/17 04:48 O2 Sat by Pulse Oximetry 95 11/07/17 04:48 Temperature 98 F 11/07/17 04:48 Pulse Rate 55 11/07/17 07:02 Respiratory Rate 20 11/07/17 07:02 Blood Pressure 163/78 11/07/17 07:02 O2 Sat by Pulse Oximetry 97 11/07/17 07:02 Oxygen Delivery Oxygen Delivery Nasal Cannula Medical Decision Making - Lab Data Result diagrams: 11/07/17 05:13 Lab Results 11/07/17 11/07/17 Range/Units 05:13 05:13 WBC 11.4 H (4.3-11.1) K/mcL RBC 3.26 L (3.82-4.97) M/mcL Hgb 10.7 L (11.5-15.4) g/dL Hct 32.0 L (35.3-44.9) % MCV 98.2 (83.0-100.0) fL MCH 32.8 (28.0-33.3) pg MCHC 33.4 (31.6-35.5) g/dL RDW 14.6 H (11.5-14.5) % Plt Count 333 (140-400) K/mcL MPV 10.7 (9.4-12.4) fL Immature Gran % 0.6 (0-4) % Seg Neutrophils % 67.0 % Lymphocytes % 16.6 % Monocytes % 12.7 % Eosinophils % 2.6 % Basophils % 0.5 % Neutrophils # 7.6 (1.6-8.9) K/mcL Lymphocytes # 1.9 (0.6-4.6) K/mcL Monocytes # 1.4 H (0.0-1.3) K/mcL Eosinophils # 0.3 (0.0-0.6) K/mcL Basophils # 0.1 (0.0-0.2) K/mcL Total Bilirubin 0.4 (0.3-1.0) mg/dL Direct Bilirubin 0.0 (0.0-0.2) mg/dL Indirect Bilirubin 0.4 (0.0-1.2) mg/dL AST 13 (13-39) Units/L ALT 8 (7-52) Units/L Alkaline Phosphatase 91 (34-104) Units/L Serum Total Protein 6.6 (6.4-8.9) g/dL Albumin 3.2 L (3.5-5.7) g/dL Globulin 3.4 (2.4-3.5) g/dL Albumin/Globulin Ratio 0.9 L (1.1-2.2) Lipase < 3 L (11-82) Units/L Attestation Statement - Attestation Attestation: I, Zechariah Torrez MD, personally evaluated this patient and discussed their management with the resident physician. I reviewed the resident's note and agree with the documented findings, medical decision making, and plan of care. 71-year-old female presents to the emergency department with a complaint of back pain for 3 days prior to arrival. She states the pain flared up on Friday and has been getting progressively worse since then. She does have chronic back pain but symptoms have been much worse than normal. Patient is on hemodialysis and she missed her dialysis on Friday due to the pain and weakness and just not feeling well. She was scheduled this morning at 5 AM for dialysis but again was too weak to go and it does not feel like she could tolerate the dialysis due to her back pain. On examination patient is a well-developed obese elderly female in no acute distress. She is alert and oriented 3. There is no cyanosis or diaphoresis. Breath sounds are clear and equal bilaterally. Heart regular rate and rhythm. Abdomen soft and nontender with normal bowel sounds. Labs reviewed. Chest x-ray and abdominal CT reviewed. The hospitalist was consulted and accepted admission of the patient.
[2017-11-07] MEDS ORDERED: Naloxone 0.4 MG/ML INJ IVP PRN (07:59)
[2017-11-07] MEDS ORDERED: Dextrose Gel 15 GM/37.5 ML TUBE PO PRN ×2 (08:13)
[2017-11-07] MEDS ORDERED: D5% in Water 1,000 ML IVC PRN (08:13)
[2017-11-07 08:57] LABS: Estimated Average Glucose 260 mg/dl; Hemoglobin A1C 10.7 %
[2017-11-07 09:24] LABS: BUN/Creatinine Ratio 8 (6-26); Blood Urea Nitrogen 82 mg/dL (8-23); Carbon Dioxide 18 mEq/L (23-29); Chloride 96 mEq/L (98-107); Glucose 129 mg/dL (70-105); Osmolality,Calculated 302 (280-300); Potassium 5.5 mEq/L (3.5-5.1); Sodium 133 mEq/L (136-145); eGFR For African Americans 4 (> 60); eGFR For Non-African Americans 4 (> 60)
--- NOTE | 2017-11-07 09:34 | Internal Med History&Physical ---
Date of Encounter: 11/08/17 Time of Encounter: 09:30 Internal Medicine - H&P: HPI Chief complaint: Low back pain and diffuse abdominal pain since friday History of present illness: Ms. Moffett is a 71 year old female with pmh chronic back pain s/p surgery about 3 years ago , ESRD-DD presenting with complaints of low back pain and abdominal pain that started on friday. Patient notes that both these back and abdominal pain started without any appparent triggers. She describes the abdominal pain as sharp 10/10 located diffusely in the abdomen but mostly in the left lower quadrant and right upper quadrant since friday . No relieving factors. Denies any fevers or chills. Also has low back pain which started on friday , 10/10 sharp which has left her unable to move and making her miss dialysis on friday. She denies any other acute complaints. In the ER, CT abdomen showed a gallbladder with layering gallstones and chronic L1 compression deformity. She denies any other acute complaints Past Med Surg Social Fam HX - Past Medical History Medical history: coronary artery disease, diabetes, dialysis, hyperlipidemia, hypertension, renal disease, thyroid disease Additional medical history: Hemodialysis M, W, F. Psychiatric history: anxiety, depression - Past Surgical History Surgical History: hysterectomy, orthopedic, other, other, vascular surgery Additional surgical history: fistula placement LANCE, back sx with 8 screws and 2 rods - Social History Smoking Status: Never smoker Smokeless Tobacco Status: No Alcohol use: none Drug use: none - Family History Mother Living Status: Hx Family Cardiac Disorders: Yes (CAD) Father Living Status: Hx Family Cancer: Yes (Colon) Hx Family Endocrine Disorder: Yes (DM) Brother Living Status: Hx Family Cancer: Yes (Colon) Hx Family Endocrine Disorder: Yes (DM) Sister Living Status: Hx Family Cardiac Disorders: Yes Hx Family Cancer: Yes (Cervical) Hx Family Endocrine Disorder: Yes (DM) Internal Medicine - H&P: Meds Levothyroxine Sodium [Synthroid] 200 mcg PO DAILY 02/08/16 [History] Atorvastatin [Lipitor] 40 mg PO DAILY 05/26/16 [History] Calcium Acetate [Phos-LO] 667 mg PO TIDWM 05/26/16 [History] Duloxetine HCl [Cymbalta] 30 mg PO DAILY 05/26/16 [History] Ergocalciferol (VITAMIN D2) [Vitamin D2] 50,000 unit PO WE 05/26/16 [History] LORazepam [Ativan] 0.5 - 1 mg PO BID PRN 05/26/16 [History] Renal Vitamin [Renal Caps Softgel] 1 mg PO DAILY 05/26/16 [History] Allopurinol [Zyloprim 300 MG] 300 mg PO DAILY 05/27/16 [History] Clopidogrel [Plavix] 75 mg PO DAILY 02/27/17 [History] Losartan Potassium [Cozaar] 100 mg PO DAILY 03/26/17 [History] Ezetimibe 10 mg PO DAILY 09/19/17 [History] Insulin Pump Cartridge [Insulin Pump] 1 device SQ AD 09/19/17 [History] Omeprazole [PriLOSEC] 40 mg PO BID 09/19/17 [History] OxyCODONE Immed Rel [Roxicodone 10 MG] 10 mg PO TID PRN 09/19/17 [History] Aspirin [Adult Aspirin Regimen] 81 mg PO DAILY 30 Days #30 tablet. 09/20/17 [ Rx] Carvedilol [Coreg] 12.5 mg PO BIDWM 30 Days #60 tablet 09/20/17 [Rx] Hydralazine HCl 50 mg PO TID #90 tablet 09/20/17 [Rx] amLODIPine [Norvasc] 10 mg PO DAILY tablet 09/20/17 [Rx] Citalopram Hydrobromide [Citalopram HBr] 20 mg PO BID 11/07/17 [History] Furosemide [Lasix] 40 mg PO DAILY 11/07/17 [History] Gabapentin [Neurontin] 300 mg PO BID 11/07/17 [History] Lidocaine [Lidocaine] 1 patch TD Q12H PRN 11/07/17 [History] Metoprolol Succinate [Toprol Xl] 50 mg PO DAILY 11/07/17 [History] Pantoprazole Sodium [Protonix] 40 mg PO DAILY 11/07/17 [History] Sevelamer [Renvela] 800 mg PO TID 11/07/17 [History] 3 Allergy/AdvReac Type Severity Reaction Status Date / Time IVP DYE AdvReac See Uncoded 11/07/17 08:14 Comments ivp dye AdvReac See Uncoded 03/26/17 09:56 Comments All Systems PM: A 10-system review of systems was performed and is negative for pertinent findings except as documented above in the HPI. - Constitutional Constitutional: no chills, no fever(s), no night sweats - EENT Eyes: no change in vision, no discharge, no pain, no photophobia Ears: no ear discharge, no ear pain, no tinnitus Nose, mouth and throat: no dysphagia, no nasal discharge, no neck pain, no sore throat - Cardiovascular Cardiovascular ROS IM: no chest pain, no diaphoresis, no dyspnea, no lightheadedness, no palpitations, no syncope - Respiratory Respiratory: no cough, no dyspnea, no wheezing, no excessive phlegm production - Gastrointestinal Gastrointestinal: abdominal pain, no diarrhea, no hematemesis, no hematochezia, no melena, no nausea, no vomiting - Genitourinary Genitourinary: no change in urinary stream, no dysuria, no flank pain, no hematuria - Musculoskeletal Musculoskeletal ROS IM: back pain, no numbness, no tingling - Integumentary Integumentary IM: no rash, no unusual bruising - Neurological Neurological ROS: no confusion, no convulsions, no focal weakness, no numbness, no tingling, no tremor(s) - Hematologic/Lymphatic Hematologic/Lymphatic: no easy bruising - Constitutional Vitals: Temp Pulse Resp BP Pulse Ox 102.4 F H 57 16 148/65 94 11/07/17 09:10 11/07/17 09:10 11/07/17 09:10 11/07/17 09:10 11/07/17 09:10 - Head Head exam: Present: atraumatic, normocephalic - Eye Eye exam: Present: PERRL, conjuntiva pink, sclera anicteric Pupils: Present: PERRL - Neck Neck exam general surgery: Present: supple, trachea midline. Absent: lymphadenopathy - Respiratory Respiratory exam: Present: CTAB. Absent: accessory muscle use, rales, rhonchi, wheezes - Cardiovascular Cardiovascular exam: Present: RRR, +S1, +S2. Absent: diastolic murmur, gallop, rubs, systolic murmur - GI/Abdominal GI/Abdominal exam: Present: normal bowel sounds, soft, tenderness, no peritoneal signs. Absent: distended - Extremities Exam Extremities exam: Present: warm, radial pulses palpable and symmetrical. Absent : calf tenderness, cyanotic, pedal edema - Back Exam Back exam: Present: vertebral tenderness - Neurological Exam Neurological exam: Present: CN II-XII intact, oriented X3, no focal deficits. Absent: pronater drift, facial droop, speech deficit - Skin Skin exam: Present: dry, intact Internal Med - H&P Results - Labs CBC & Chem 7: 11/08/17 05:46 11/08/17 05:46 - Assessment and plan (1) SIRS (systemic inflammatory response syndrome) Current Visit: Yes Status: Acute Assessment and plan: SIRS r/o Sepsis. Patient had temp of 102 on the floor after being admitted for back and abdominal pain. ABdomen and pelvis CT showed questionable pneumonia on cXR. Pt doesn't having any coughing. Will start on zosn to cover GI (gall stones ) and lungs for possible pneumonia. obtain blood cultures, cxr (2) Pneumonia Current Visit: Yes Status: Acute Assessment and plan: See SIRS. F/U CXR. continue zosyn Qualifiers: Pneumonia type: due to unspecified organism Laterality: unspecified laterality Lung location: unspecified part of lung Qualified Code(s): J18.9 - Pneumonia, unspecified organism (3) Gallstone Current Visit: Yes Status: Acute Assessment and plan: R/O acute cholecystitis. Surgery has been consulted. Obtain abdominal ultrasound. Pain control as needed. keep NPO Qualifiers: Qualified Code(s): K80.20 - Calculus of gallbladder without cholecystitis without obstruction (4) Abdominal pain Current Visit: Yes Status: Acute Assessment and plan: See #1 Qualifiers: Abdominal location: generalized Qualified Code(s): R10.84 - Generalized abdominal pain (5) Low back pain Current Visit: Yes Status: Acute Assessment and plan: Has chronic low back pain with L1 chronic compression deformity. Pain control and physical therapy Qualifiers: Chronicity: chronic Back pain laterality: bilateral Sciatica presence: without sciatica Qualified Code(s): M54.5 - Low back pain; G89.29 - Other chronic pain (6) ESRD (end stage renal disease) on dialysis Current Visit: Yes Status: Acute Assessment and plan: With missed dialysis on tuesday 06/06 to pain. Renal has been consulted. Plan to resume regular dialysis schedule (7) Hypertension Current Visit: No Status: Chronic Assessment and plan: On amlodipine and losartan Qualifiers: Hypertension type: essential hypertension Qualified Code(s): I10 - Essential (primary) hypertension (8) Hypothyroid Current Visit: No Status: Chronic Assessment and plan: On levothyroxine Qualifiers: Hypothyroidism type: unspecified Qualified Code(s): E03.9 - Hypothyroidism , unspecified (9) DVT prophylaxis Current Visit: No Status: Acute Assessment and plan: heparin sc (10) Diabetes Current Visit: Yes Status: Acute Assessment and plan: Continue insulin pump Qualifiers: Qualified Code(s): E11.9 - Type 2 diabetes mellitus without complications - Time Spent With Patient Total time spent is greater than 50% in coordination of care (as documented) at patient's floor/unit and/or counseling patient:
[2017-11-07] MEDS: hydrALAZINE 25 MG TABLET PO SCH ×3 (10:30→21:10)
[2017-11-07] MEDS: *HR* OxyCODONE/APAP 10/325 TABLET PO PRN ×3 (10:30→21:14)
[2017-11-07] MEDS: Aspirin Enteric Coated 81 MG Tablet PO SCH (10:31)
[2017-11-07] MEDS: amLODIPine 5 MG TABLET PO SCH (10:31)
[2017-11-07] MEDS: Isosorbide MONOnitrate (24 HR) 60 MG TAB.ER.24H PO SCH (10:32)
[2017-11-07] MEDS: INSULIN PUMP SQ SCH (10:33)
[2017-11-07] MEDS: Renal Vitamin 1 CAP CAPSULE PO SCH (10:33)
[2017-11-07] MEDS: Calcium Acetate 667 MG CAPSULE PO SCH ×2 (10:34→17:00)
[2017-11-07] MEDS ORDERED: 0.9 % Sodium Chloride 1,000 ML ONE (11:03)
[2017-11-07] MEDS ORDERED: Insulin LISPRO 300 UNITS/3 ML VIAL SQ SCH ×2 (11:30→21:00)
[2017-11-07] MEDS ORDERED: 0.9 % Sodium Chloride 250 ML IVC PRN (11:34)
[2017-11-07] MEDS ORDERED: 0.9 % Sodium Chloride 1,000 ML PRIME SCH (11:45)
--- NOTE | 2017-11-07 12:55 | General Surgery Consult Note ---
Date of Encounter: 11/07/17 Time of Encounter: 12:45 Assessment and Plan (1) Abdominal pain Current Visit: Yes Status: Acute 71F with abdominal pain; multiple comorbidities and CT findings (significant arterial calcifications, anasarca, subacute rib fractures, pleural effusions, cholelithiaisis); non toxic; it is difficult to truly assess what one thing is causing this patient's discomfort. Based upon labs and exam and imaging, there is the possibility that her pain is related to gallstones. However, she has a number of other comorbidities and problems that could cause the same. cares per primary team will continue to follow - serial abdominal exams recommend US of gallbladder no acute surgery at present Qualifiers: Abdominal location: generalized Qualified Code(s): R10.84 - Generalized abdominal pain History of Present Illness Consult date: 11/07/17 Reason for consult: gallstones History of present illness: Ursula Moffett is a 71F with multiple comorbidities, including ESRD requiring dialysis, CAD, DM II, HLD, HTN, she has also had prior back surgery that was complicated and required re-exploration. She is admitted to the hospital today 2/2 a combination of back and abdominal pain. She states it has been ongoing for about a week, but has gotten worse over the last 4 days. She is not able to identify any alleviating or exacerbating factors, but is able to say that it is diffuse in nature. In addition, she does note that she is not able to eat as much because she feels as if she will vomit. No associated fevers, chills. A CT scan was obtained, which was reviewed and intepreted by me in combination with radiology reads, that confirmed, among other things cholelithiasis and sludge. General surgery was consulted for further management recommendations. Past Med Surg Social Fam HX - Past Medical History Medical history: coronary artery disease, diabetes, dialysis, hyperlipidemia, hypertension, renal disease, thyroid disease Additional medical history: Hemodialysis M, W, F. Psychiatric history: anxiety, depression - Past Surgical History Surgical History: hysterectomy, orthopedic, other, other, vascular surgery Additional surgical history: fistula placement LANCE, back sx with 8 screws and 2 rods - Social History Smoking Status: Never smoker Smokeless Tobacco Status: No Alcohol use: none Drug use: none - Family History Mother Living Status: Hx Family Cardiac Disorders: Yes (CAD) Father Living Status: Hx Family Cancer: Yes (Colon) Hx Family Endocrine Disorder: Yes (DM) Brother Living Status: Hx Family Cancer: Yes (Colon) Hx Family Endocrine Disorder: Yes (DM) Sister Living Status: Hx Family Cardiac Disorders: Yes Hx Family Cancer: Yes (Cervical) Hx Family Endocrine Disorder: Yes (DM) Medications and Allergies Levothyroxine Sodium [Synthroid] 200 mcg PO DAILY 02/08/16 [History] Atorvastatin [Lipitor] 40 mg PO DAILY 05/26/16 [History] Calcium Acetate [Phos-LO] 667 mg PO TIDWM 05/26/16 [History] Duloxetine HCl [Cymbalta] 30 mg PO DAILY 05/26/16 [History] Ergocalciferol (VITAMIN D2) [Vitamin D2] 50,000 unit PO WE 05/26/16 [History] LORazepam [Ativan] 0.5 - 1 mg PO BID PRN 05/26/16 [History] Renal Vitamin [Renal Caps Softgel] 1 mg PO DAILY 05/26/16 [History] Allopurinol [Zyloprim 300 MG] 300 mg PO DAILY 05/27/16 [History] Clopidogrel [Plavix] 75 mg PO DAILY 02/27/17 [History] Losartan Potassium [Cozaar] 100 mg PO DAILY 03/26/17 [History] Ezetimibe 10 mg PO DAILY 09/19/17 [History] Insulin Pump Cartridge [Insulin Pump] 1 device SQ AD 09/19/17 [History] Omeprazole [PriLOSEC] 40 mg PO BID 09/19/17 [History] OxyCODONE Immed Rel [Roxicodone 10 MG] 10 mg PO TID PRN 09/19/17 [History] Aspirin [Adult Aspirin Regimen] 81 mg PO DAILY 30 Days #30 tablet. 09/20/17 [ Rx] Carvedilol [Coreg] 12.5 mg PO BIDWM 30 Days #60 tablet 09/20/17 [Rx] Hydralazine HCl 50 mg PO TID #90 tablet 09/20/17 [Rx] amLODIPine [Norvasc] 10 mg PO DAILY tablet 09/20/17 [Rx] Citalopram Hydrobromide [Citalopram HBr] 20 mg PO BID 11/07/17 [History] Furosemide [Lasix] 40 mg PO DAILY 11/07/17 [History] Gabapentin [Neurontin] 300 mg PO BID 11/07/17 [History] Lidocaine [Lidocaine] 1 patch TD Q12H PRN 11/07/17 [History] Metoprolol Succinate [Toprol Xl] 50 mg PO DAILY 11/07/17 [History] Pantoprazole Sodium [Protonix] 40 mg PO DAILY 11/07/17 [History] Sevelamer [Renvela] 800 mg PO TID 11/07/17 [History] 3 Allergy/AdvReac Type Severity Reaction Status Date / Time IVP DYE AdvReac See Uncoded 11/07/17 08:14 Comments ivp dye AdvReac See Uncoded 03/26/17 09:56 Comments Review of Systems All systems PM: The remainder of the systems were reviewed and are negative General Surgery Exam Initial Vital Signs Temp Pulse Resp BP Pulse Ox 98 F 60 20 154/68 95 11/07/17 04:48 11/07/17 04:48 11/07/17 04:48 11/07/17 04:48 11/07/17 04:48 - General physical appearance no distress - Eyes other (no scleral icterus), normal ocular movement - ENT normocephalic - Neck no lymphadectomy - Respiratory normal expansion, normal respiratory effort - Cardiovascular Cardiovascular exam: Present: RRR - Abdomen Abdomen general surgery: Present: soft, tender Abdominal Tenderness: Present: epigastic, RUQ, LUQ, diffusely (non peritoneal) - Integumentary Integumentary general surgery: Present: warm and dry - Neurologic Present: CN 2-12 grossly intact - Psychiatric Psychiatric general surgery: Present: A&Ox3 Exam Initial Vital Signs Temp Pulse Resp BP Pulse Ox 98 F 60 20 154/68 95 11/07/17 04:48 11/07/17 04:48 11/07/17 04:48 11/07/17 04:48 11/07/17 04:48 Results - Labs 11/07/17 05:13 11/07/17 05:13 Abnormal lab results WBC 11.4 K/mcL (4.3-11.1) H 11/07/17 05:13 RBC 3.26 M/mcL (3.82-4.97) L 11/07/17 05:13 Hgb 10.7 g/dL (11.5-15.4) L 11/07/17 05:13 Hct 32.0 % (35.3-44.9) L 11/07/17 05:13 RDW 14.6 % (11.5-14.5) H 11/07/17 05:13 Monocytes # 1.4 K/mcL (0.0-1.3) H 11/07/17 05:13 Sodium 133 mEq/L (136-145) L 11/07/17 05:13 Potassium 5.5 mEq/L (3.5-5.1) H 11/07/17 05:13 Chloride 96 mEq/L (98-107) L 11/07/17 05:13 Carbon Dioxide 18 mEq/L (23-29) L 11/07/17 05:13 BUN 82 mg/dL (8-23) H 11/07/17 05:13 Creatinine 10.73 mg/dL (0.60-1.20) H 11/07/17 05:13 Est GFR ( Amer) 4 (> 60) L 11/07/17 05:13 Est GFR (Non-Af Amer) 4 (> 60) L 11/07/17 05:13 Glucose 129 mg/dL (70-105) H 11/07/17 05:13 Hemoglobin A1c 10.7 % (-5.6) H 11/07/17 05:13 Calculated Osmolality 302 (280-300) H 11/07/17 05:13 Albumin 3.2 g/dL (3.5-5.7) L 11/07/17 05:13 Albumin/Globulin Ratio 0.9 (1.1-2.2) L 11/07/17 05:13 Lipase < 3 Units/L (11-82) L 11/07/17 05:13 All other labs normal. - Imaging Abdominal x-ray: report reviewed, image reviewed CT scan - chest: report reviewed, image reviewed Consult Discharge Plan - Plan
--- NOTE | 2017-11-07 16:24 | Nephrology Consult Note ---
Date of Encounter: 11/07/17 Time of Encounter: 12:00 Assessment and Plan (1) ESRD (end stage renal disease) on dialysis Current Visit: Yes Status: Acute Continue HD with UF as tolerated Renal diet advised (2) Hyperkalemia Current Visit: Yes Status: Acute Elevated due to missed HD, should improve after HD today (3) Low back pain Current Visit: Yes Status: Acute Per primary team Qualifiers: Chronicity: chronic Back pain laterality: bilateral Sciatica presence: without sciatica Qualified Code(s): M54.5 - Low back pain; G89.29 - Other chronic pain History of Present Illness - Reason for Consult Consult date: 11/07/17 end stage renal disease Requesting physician: Hollie Artis - History of Present Illness 71 y o female with PMH of HTN, DM, CAD s/p recent stents and ESRD on HD admitted forsvere back pain and noted with elevated potassium at 5.5. Pt apparently missed HD on friday due to pain. renal consulted for ESRD management. Pt seen and examined during urgent HD feeling a little better with pain med. No CP or SOB. Ct abd/pelvis results noted Past Med Surg Social Fam HX - Past Medical History Medical history: coronary artery disease, diabetes, dialysis, hyperlipidemia, hypertension, renal disease, thyroid disease Additional medical history: Hemodialysis M, W, F. Psychiatric history: anxiety, depression - Past Surgical History Surgical History: hysterectomy, orthopedic, other, other, vascular surgery Additional surgical history: fistula placement LANCE, back sx with 8 screws and 2 rods - Social History Smoking Status: Never smoker Smokeless Tobacco Status: No Alcohol use: none Drug use: none - Family History Mother Living Status: Hx Family Cardiac Disorders: Yes (CAD) Father Living Status: Hx Family Cancer: Yes (Colon) Hx Family Endocrine Disorder: Yes (DM) Brother Living Status: Hx Family Cancer: Yes (Colon) Hx Family Endocrine Disorder: Yes (DM) Sister Living Status: Hx Family Cardiac Disorders: Yes Hx Family Cancer: Yes (Cervical) Hx Family Endocrine Disorder: Yes (DM) Medications and Allergies Levothyroxine Sodium [Synthroid] 200 mcg PO DAILY 02/08/16 [History] Atorvastatin [Lipitor] 40 mg PO DAILY 05/26/16 [History] Calcium Acetate [Phos-LO] 667 mg PO TIDWM 05/26/16 [History] Duloxetine HCl [Cymbalta] 30 mg PO DAILY 05/26/16 [History] Ergocalciferol (VITAMIN D2) [Vitamin D2] 50,000 unit PO WE 05/26/16 [History] LORazepam [Ativan] 0.5 - 1 mg PO BID PRN 05/26/16 [History] Renal Vitamin [Renal Caps Softgel] 1 mg PO DAILY 05/26/16 [History] Allopurinol [Zyloprim 300 MG] 300 mg PO DAILY 05/27/16 [History] Clopidogrel [Plavix] 75 mg PO DAILY 02/27/17 [History] Losartan Potassium [Cozaar] 100 mg PO DAILY 03/26/17 [History] Ezetimibe 10 mg PO DAILY 09/19/17 [History] Insulin Pump Cartridge [Insulin Pump] 1 device SQ AD 09/19/17 [History] Omeprazole [PriLOSEC] 40 mg PO BID 09/19/17 [History] OxyCODONE Immed Rel [Roxicodone 10 MG] 10 mg PO TID PRN 09/19/17 [History] Aspirin [Adult Aspirin Regimen] 81 mg PO DAILY 30 Days #30 tablet. 09/20/17 [ Rx] Carvedilol [Coreg] 12.5 mg PO BIDWM 30 Days #60 tablet 09/20/17 [Rx] Hydralazine HCl 50 mg PO TID #90 tablet 09/20/17 [Rx] amLODIPine [Norvasc] 10 mg PO DAILY tablet 09/20/17 [Rx] Citalopram Hydrobromide [Citalopram HBr] 20 mg PO BID 11/07/17 [History] Furosemide [Lasix] 40 mg PO DAILY 11/07/17 [History] Gabapentin [Neurontin] 300 mg PO BID 11/07/17 [History] Lidocaine [Lidocaine] 1 patch TD Q12H PRN 11/07/17 [History] Metoprolol Succinate [Toprol Xl] 50 mg PO DAILY 11/07/17 [History] Pantoprazole Sodium [Protonix] 40 mg PO DAILY 11/07/17 [History] Sevelamer [Renvela] 800 mg PO TID 11/07/17 [History] 3 Allergy/AdvReac Type Severity Reaction Status Date / Time IVP DYE AdvReac See Uncoded 11/07/17 08:14 Comments ivp dye AdvReac See Uncoded 03/26/17 09:56 Comments Review of Systems All Systems: reviewed and no additional remarkable complaints except as stated ( 10 systems reviewed and noted in HPI) Exam - Vital Signs Vital signs: Initial Vital Signs Temp Pulse Resp BP Pulse Ox 98 F 60 20 154/68 95 11/07/17 04:48 11/07/17 04:48 11/07/17 04:48 11/07/17 04:48 11/07/17 04:48 Vital Signs - Last 8 Hours Temp Pulse Resp BP Pulse Ox 11/07/17 15:40 97.3 F L 20 107/33 11/07/17 15:25 96/42 11/07/17 15:10 97/40 11/07/17 14:55 109/42 11/07/17 14:40 109/39 11/07/17 14:25 101/34 11/07/17 14:10 105/39 11/07/17 13:55 103/36 11/07/17 13:40 105/39 11/07/17 13:25 110/31 11/07/17 13:10 114/37 11/07/17 12:55 130/48 11/07/17 12:40 128/34 11/07/17 12:25 97.3 F L 18 129/46 11/07/17 11:25 98.1 F 60 15 132/64 95 11/07/17 09:10 102.4 F H 57 16 148/65 94 Intake and Output 11/07/17 11/07/17 11/07/17 07:59 15:59 23:59 Intake Total 600 / 600 Output Total 3600 / 3600 Balance -3000 / -3000 Intake: Intake, Rinseback and Flushes 600 / 600 Output: Total Dialysis (HD) Output 3600 / 3600 Other: Blood Glucose* 169 Hemodialysis Net Fluid Removed 3000 (mL) - General Appearance General appearance: chronically ill, fatigue, frail EENT: ATNC, mucous membranes moist Neck: no JVD, supple Respiratory: clear Cardiology: no edema, normal S1, normal S2 - Dialysis Access Dialysis Vascular Access: Arteriovenous Fistula thrill: Yes bruit: Yes Gastrointestinal: no tenderness, no guarding Integumentary: warm and dry Neurologic: no focal deficit Musculoskeletal: no deformities Psychiatric: mood/affect appropriate, cooperative Results - Lab Results 11/09/17 06:45 11/09/17 06:45 Most recent lab results Calcium 9.0 mg/dL (8.6-10.3) 11/07/17 05:13 Consult Discharge Plan - Plan Referrals: Hugo Mercedes MD [Primary Care Provider] -
[2017-11-07] MEDS: Piperacillin/Tazobactam 3.375 GM in 0.9 % Sodium Chloride Mini Bag 100 ML IVPB SCH ×2 (17:01→18:38)
--- NOTE | 2017-11-07 17:46 | Electrocardiograph Report ---
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
[2017-11-08] MEDS: *HR* OxyCODONE/APAP 10/325 TABLET PO PRN ×5 (00:49→20:48)
[2017-11-08] MEDS: Piperacillin/Tazobactam 3.375 GM in 0.9 % Sodium Chloride Mini Bag 100 ML IVPB SCH ×2 (05:55→17:05)
[2017-11-08 06:09] LABS: Basophils # 0.1 K/mcL (0.0-0.2); Basophils % 0.6 %; Eosinophils # 0.3 K/mcL (0.0-0.6); Eosinophils % 2.4 %; Hematocrit 34.3 % (35.3-44.9); Hemoglobin 11.5 g/dL (11.5-15.4); Immature Granulocytes % 0.8 % (0-4); Lymphocytes # 1.6 K/mcL (0.6-4.6); Lymphocytes % 12.9 %; Mean Corpuscular HGB Conc 33.5 g/dL (31.6-35.5); Mean Corpuscular Hemoglobin 32.8 pg (28.0-33.3); Mean Corpuscular Volume 97.7 fL (83.0-100.0); Monocytes # 1.9 K/mcL (0.0-1.3); Monocytes % 15.3 %; Neutrophils # 8.7 K/mcL (1.6-8.9); Platelet Count 340 K/mcL (140-400); Red Blood Count 3.51 M/mcL (3.82-4.97); Red Cell Distribution Width 14.6 % (11.5-14.5)
[2017-11-08 06:29] LABS: Magnesium 2.3 mg/dL (1.6-2.6); Phosphorous 10.9 mg/dL (2.7-4.5); Potassium 5.5 mEq/L (3.5-5.1)
[2017-11-08] MEDS ORDERED: NON-FORMULARY MEDICATION 1 EACH EACH (Levothyroxine Sodium [Synthroid] 200 MCG) PO SCH (06:30)
[2017-11-08] MEDS: *HR* Dextrose 50 % in Water (Syg) 50 ML SYRINGE IVP PRN ×2 (07:56→22:53)
[2017-11-08] MEDS: hydrALAZINE 25 MG TABLET PO SCH (08:14)
[2017-11-08] MEDS: Renal Vitamin 1 CAP CAPSULE PO SCH (08:14)
[2017-11-08] MEDS: Isosorbide MONOnitrate (24 HR) 60 MG TAB.ER.24H PO SCH (08:15)
[2017-11-08] MEDS: Calcium Acetate 667 MG CAPSULE PO SCH ×3 (08:15→16:49)
[2017-11-08] MEDS: amLODIPine 5 MG TABLET PO SCH (08:15)
[2017-11-08] MEDS: INSULIN PUMP SQ SCH (08:15)
[2017-11-08] MEDS: Aspirin Enteric Coated 81 MG Tablet PO SCH (08:15)
[2017-11-08] MEDS ORDERED: 0.9 % Sodium Chloride 2,000 ML ONE (11:04)
[2017-11-08] MEDS ORDERED: 0.9 % Sodium Chloride 250 ML IVC PRN (11:39)
[2017-11-08] MEDS ORDERED: 0.9 % Sodium Chloride 1,000 ML PRIME SCH (11:45)
--- NOTE | 2017-11-08 14:40 | Internal Med Progress Note ---
Date of Encounter: 11/08/17 Time of Encounter: 12:00 - Assessment and plan (1) Abdominal pain Current Visit: Yes Status: Acute Assessment and plan: Diffuse abdominal and back pain. CT abdomen with multiple issues including some lower rib fractures, spinal compression deformity, and GB stones. Multiple reasons for patient to have pain. Most issues are chronic but patient with worsened pain on top of chronic pain. Patient reports previous hardware in back for compression fractures but had surgeries for its removal due to abscess/infection? Pain likely from procedure. Abdomen pain likely cholecystitis, pain intensity waxes and wanes in intensity. Abdominal US with mild GB wall thickening with pericholecystic fluid. Would consider HIDA scan, not sure if patient's IV dye allergy would be an issue. Surgery call, seeking to discuss utility of an additional scan or maybe plan for surgery? Qualifiers: Abdominal location: generalized Qualified Code(s): R10.84 - Generalized abdominal pain (2) Hypertension Current Visit: No Status: Chronic Assessment and plan: Patient on numerous medications including Imdur, hydralazine, cozaar, norvasc. Will hold Norvasc and hydralazine for now. Patient's BP in low 100s. Monitor BP. Will resume meds or discontinue the rest depending on BP. Qualifiers: Hypertension type: essential hypertension Qualified Code(s): I10 - Essential (primary) hypertension (3) Low back pain Current Visit: Yes Status: Acute Assessment and plan: Chronic low back pain with compression deformity. Pain control. Physical therapy when tolerated. Will need further follow up with physician outpatient. Qualifiers: Chronicity: chronic Back pain laterality: bilateral Sciatica presence: without sciatica Qualified Code(s): M54.5 - Low back pain; G89.29 - Other chronic pain (4) Hypothyroid Current Visit: No Status: Chronic Assessment and plan: c/w home dose synthroid Qualifiers: Hypothyroidism type: unspecified Qualified Code(s): E03.9 - Hypothyroidism , unspecified (5) ESRD (end stage renal disease) on dialysis Current Visit: Yes Status: Acute Assessment and plan: Resume HD as scheduled. Nephrology on board. (6) Diabetes Current Visit: Yes Status: Acute Assessment and plan: ON insulin pump. Continue. Monitor BS Qualifiers: Qualified Code(s): E11.9 - Type 2 diabetes mellitus without complications (7) SIRS (systemic inflammatory response syndrome) Current Visit: Yes Status: Acute Assessment and plan: SIRS with possible sepsis from abdominal source. Gallstone vs PNA? On zosyn. Continue for now. CT suspicious for PNA, patient has no cough however. f/u Blood cultures. (8) Pneumonia Current Visit: Yes Status: Acute Assessment and plan: CT with evidence of PNA. Patient has no cough or concering symptoms for PNA however, but was febrile on admission. f/u blood cultures and respiratory panel. c/w Zosyn Qualifiers: Pneumonia type: due to unspecified organism Laterality: unspecified laterality Lung location: unspecified part of lung Qualified Code(s): J18.9 - Pneumonia, unspecified organism - Time Spent With Patient Total time spent is greater than 50% in coordination of care (as documented) at patient's floor/unit and/or counseling patient: - Subjective Interval history: Reports that she is more comfortable than last night but still has a lot of pain in the abdomen and back - Constitutional Vitals: Temp Pulse Resp BP Pulse Ox 97.6 F 51 18 103/57 92 11/08/17 11:25 11/08/17 11:25 11/08/17 11:25 11/08/17 11:25 11/08/17 11:25 Exam: General: Alert and oriented. Morbidly obese. Comfortable until any pressure is applied to abdomen. Skin: Normal color, no rash, no lesions. HEENT: EOMI, pupils equal, round and reactive. Cardiovascular: Regular rate, regular rhythm. No murmurs appreciated. Lungs:Normal breath sounds, no wheezes or crackles. Abdomen:Soft, diffuse tenderness on palpation, no rigidity. Extremities:No deformity, no edema or tenderness, no joint swelling or clubbing. Neurological:Normal cognition, no weakness, no numbness. Rest of the physical exam is non contributory Internal Medicine: Result - Labs CBC & Chem 7: 11/08/17 05:46 11/08/17 05:46 Labs: Short CBC 11/08/17 Range/Units 05:46 WBC 12.7 H (4.3-11.1) K/mcL Hgb 11.5 (11.5-15.4) g/dL Hct 34.3 L (35.3-44.9) % Plt Count 340 (140-400) K/mcL Neutrophils # 8.7 (1.6-8.9) K/mcL BMP 11/08/17 05:46 Sodium 135 L Potassium 5.5 H Chloride 100 Carbon Dioxide 19 L BUN 72 H Creatinine 10.55 H Glucose 51 L Calcium 9.0 - Impressions Impressions Chest X-Ray 11/07/17 12:14 IMPRESSION: Mild congestive heart failure. D/ / 11/07/2017 19:00:51 Lan Burrell MD / jesus albetro Interpreting Provider: Lan Burrell MD Abdomen Ultrasound 11/07/17 16:30 IMPRESSION: Mild gallbladder distention with wall thickening and minimal pericholecystic fluid collection. Several microcalculi in the dependent portion of the gallbladder. Increased echogenicity of liver parenchyma suggesting chronic liver parenchymal disease. Recommend nuclear medicine HIDA scan for cystic duct patency. D/ / Chava Camejo MD / Chava Camejo MD Interpreting Provider: Chava Camejo MD Consult Discharge Plan - Plan Referrals: Hugo Mercedes MD [Primary Care Provider] -
--- NOTE | 2017-11-08 15:31 | Nephrology Progress Note ---
Date of Encounter: 11/08/17 Time of Encounter: 12:00 - Assessment and Plan (1) ESRD (end stage renal disease) on dialysis Current Visit: Yes Status: Acute Will dialyze again given still elevated BUN and potassium along with hyperphosphotemia (2) Hyperkalemia Current Visit: Yes Status: Acute Potassium noted at 5.5, continue renal diet Subjective Interval history: Pt seen and examined Objective - Vital Signs Vital signs: Vital Signs Temp Pulse Resp BP Pulse Ox 11/08/17 15:15 118/59 11/08/17 15:00 106/64 11/08/17 14:45 115/55 11/08/17 14:30 102/53 11/08/17 14:15 104/58 11/08/17 14:00 112/53 11/08/17 13:45 122/54 11/08/17 13:30 120/53 11/08/17 13:15 100/58 11/08/17 13:00 106/56 11/08/17 12:45 107/62 11/08/17 12:30 97.0 F L 18 119/63 11/08/17 11:25 97.6 F 51 18 103/57 92 11/08/17 07:55 98.0 F 71 19 131/68 97 11/08/17 03:50 98.1 F 60 18 117/62 92 11/08/17 00:33 98.8 F 55 18 134/71 92 11/07/17 19:37 98.1 F 58 18 111/58 92 11/07/17 16:49 98.9 F 59 16 106/54 96 11/07/17 15:40 97.3 F L 20 107/33 Intake and Output 11/07/17 11/08/17 11/08/17 23:59 07:59 15:59 Intake Total 100 / 100 840 / 840 Output Total 0 / 0 Balance 100 / 100 840 / 840 Intake: IV Fluids 100 / 100 Zosyn 3.375 GM In 0.9 % Sodium 100 / 100 Chloride (Mini-Bag +) 100 ML @ 25 mls/hr IVPB Q12H [facility] Rx#: [id number] Oral 240 / 240 Intake, Rinseback and Flushes 600 / 600 Output: Urine 0 / 0 Other: Meal Dinner Percent of Meal Consumed 80% Weight 76.4 kg 76.4 kg Blood Glucose* 96 41 95 Hemodialysis Net Fluid Removed 1450 (mL) Patient Weight 11/08/17 23:59 Weight 76.4 kg - Lab 11/08/17 05:46 11/08/17 13:40 Most recent lab results Calcium 9.0 mg/dL (8.6-10.3) 11/08/17 05:46 Phosphorus 10.9 mg/dL (2.7-4.5) H 11/08/17 05:46 Magnesium 2.3 mg/dL (1.6-2.6) 11/08/17 05:46 Consult Discharge Plan - Plan Referrals: Hugo Mercedes MD [Primary Care Provider] -
[2017-11-08] MEDS: *HR* Heparin 5,000 UNIT/ML VIAL SQ SCH (16:58)
--- NOTE | 2017-11-08 20:23 | General Surgery Progress Note ---
Date of Encounter: 11/08/17 Time of Encounter: 20:20 - Assessment and Plan (1) Abdominal pain Current Visit: Yes Status: Acute 71F with abdominal pain; multiple comorbidities and CT findings (significant arterial calcifications, anasarca, subacute rib fractures, pleural effusions, cholelithiaisis); non toxic; it is difficult to truly assess what one thing is causing this patient's discomfort. Based upon labs it is less likley that her gallbladder is causing her pain. her imaging is suggestive of othewise. However , she has a number of other comorbidities and problems that could cause the same. can consider HIDA; although there may be an issue with her kidneys, it appears her kidney function is unlikely to be affected more adversely than they are no acute surgery recommend cholecystostomy tube if continued concern about her gallbladder can plan for outpatient follow up once comorbidities optimized general surgery will sign off; please call with any new questions or concerns Qualifiers: Abdominal location: generalized Qualified Code(s): R10.84 - Generalized abdominal pain Subjective Patient reports: no new complaints, still having pain Objective Vital Signs - Last 8 Hours Temp Pulse Resp BP Pulse Ox 11/08/17 19:06 98.0 F 61 18 113/61 91 11/08/17 16:49 94 11/08/17 16:34 97.6 F 62 18 132/69 90 11/08/17 16:00 97.1 F L 18 123/65 11/08/17 15:35 114/63 11/08/17 15:20 118/59 11/08/17 15:05 106/64 Intake and Output 11/08/17 11/08/17 11/08/17 07:59 15:59 23:59 Intake Total 0 / 0 Output Total 1600 / 1600 Balance -1600 / -1600 Intake: Oral 0 / 0 Output: Urine 0 / 0 Total Dialysis (HD) Output 1600 / 1600 Other: Blood Glucose* 89 Hemodialysis Net Fluid Removed 1600 1000 (mL) - General physical appearance no distress - Respiratory normal expansion, normal respiratory effort - Cardiovascular Cardiovascular exam: Present: RRR - Abdomen Abdomen: Present: soft, tender - Neurologic CN 2-12 grossly intact - Psychiatric oriented to time, oriented to person, oriented to place - Labs 11/08/17 05:46 11/08/17 13:40 Consult Discharge Plan - Plan Referrals: Hugo Mercedes MD [Primary Care Provider] -
[2017-11-08] MEDS ORDERED: Acetaminophen 325 MG TABLET PO PRN (20:35)
[2017-11-09] MEDS: *HR* OxyCODONE/APAP 10/325 TABLET PO PRN ×5 (02:47→21:31)
[2017-11-09] MEDS: *HR* Heparin 5,000 UNIT/ML VIAL SQ SCH ×2 (05:55→17:32)
[2017-11-09] MEDS: Piperacillin/Tazobactam 3.375 GM in 0.9 % Sodium Chloride Mini Bag 100 ML IVPB SCH ×2 (05:55→17:21)
[2017-11-09 07:03] LABS: Basophils # 0.1 K/mcL (0.0-0.2); Basophils % 0.5 %; Eosinophils # 0.4 K/mcL (0.0-0.6); Eosinophils % 3.3 %; Hematocrit 33.6 % (35.3-44.9); Hemoglobin 11.2 g/dL (11.5-15.4); Immature Granulocytes % 0.4 % (0-4); Lymphocytes # 1.1 K/mcL (0.6-4.6); Lymphocytes % 9.4 %; Mean Corpuscular HGB Conc 33.3 g/dL (31.6-35.5); Mean Corpuscular Hemoglobin 32.8 pg (28.0-33.3); Mean Corpuscular Volume 98.5 fL (83.0-100.0); Mean Platelet Volume 10.5 fL (9.4-12.4); Monocytes # 1.8 K/mcL (0.0-1.3); Monocytes % 14.7 %; Neutrophils # 8.6 K/mcL (1.6-8.9); Platelet Count 318 K/mcL (140-400); Red Blood Count 3.41 M/mcL (3.82-4.97); Red Cell Distribution Width 14.6 % (11.5-14.5); Segmented Neutrophils % 71.7 %
[2017-11-09 07:53] LABS: Albumin 2.9 g/dL (3.5-5.7); Albumin/Globulin Ratio 0.9 (1.1-2.2); Bilirubin,Total 0.4 mg/dL (0.3-1.0); Calcium 8.8 mg/dL (8.6-10.3); Globulin 3.1 g/dL (2.4-3.5); Potassium 4.9 mEq/L (3.5-5.1)
[2017-11-09] MEDS: INSULIN PUMP SQ SCH (08:21)
[2017-11-09] MEDS: Aspirin Enteric Coated 81 MG Tablet PO SCH (08:21)
[2017-11-09] MEDS: Renal Vitamin 1 CAP CAPSULE PO SCH (08:21)
[2017-11-09] MEDS: Isosorbide MONOnitrate (24 HR) 60 MG TAB.ER.24H PO SCH (08:21)
[2017-11-09] MEDS: Calcium Acetate 667 MG CAPSULE PO SCH ×3 (08:21→17:22)
[2017-11-09] MEDS: *HR* Dextrose 50 % in Water (Syg) 50 ML SYRINGE IVP PRN ×2 (08:22→17:23)
--- NOTE | 2017-11-09 10:31 | General Surgery Progress Note ---
Date of Encounter: 11/09/17 Time of Encounter: 09:00 Objective Vital Signs - Last 8 Hours Temp Pulse Resp BP Pulse Ox 11/09/17 08:24 98.1 F 68 18 111/58 93 11/09/17 04:01 98.2 F 68 16 127/68 92 Intake and Output 11/08/17 11/09/17 11/09/17 23:59 07:59 15:59 Intake Total 580 / 580 240 / 240 Output Total 1600 / 1600 0 / 0 Balance -1020 / -1020 240 / 240 Intake: IV Fluids 100 / 100 Zosyn 3.375 GM In 0.9 % Sodium 100 / 100 Chloride (Mini-Bag +) 100 ML @ 25 mls/hr IVPB Q12H [facility] Rx#: [id number] Oral 480 / 480 240 / 240 Output: Urine 0 / 0 0 / 0 Total Dialysis (HD) Output 1600 / 1600 Other: Meal crackers Breakfast Percent of Meal Consumed 50% 100% Weight 77.1 kg Blood Glucose* 89 109 89 Hemodialysis Net Fluid Removed 1000 (mL) - Labs 11/09/17 06:45 11/09/17 06:45 Diabetes panel 11/09/17 Range/Units 06:45 Sodium 135 L (136-145) mEq/L Potassium 4.9 D (3.5-5.1) mEq/L Chloride 98 (98-107) mEq/L Carbon Dioxide 24 (23-29) mEq/L BUN 59 H (8-23) mg/dL Creatinine 9.08 H (0.60-1.20) mg/dL Glucose 66 L (70-105) mg/dL Calcium 8.8 (8.6-10.3) mg/dL AST 10 L (13-39) Units/L ALT 4 L (7-52) Units/L Alkaline Phosphatase 79 (34-104) Units/L Albumin 2.9 L (3.5-5.7) g/dL Calcium panel 11/09/17 Range/Units 06:45 Calcium 8.8 (8.6-10.3) mg/dL Albumin 2.9 L (3.5-5.7) g/dL Pituitary panel 11/09/17 Range/Units 06:45 Sodium 135 L (136-145) mEq/L Potassium 4.9 D (3.5-5.1) mEq/L Chloride 98 (98-107) mEq/L Carbon Dioxide 24 (23-29) mEq/L BUN 59 H (8-23) mg/dL Creatinine 9.08 H (0.60-1.20) mg/dL Glucose 66 L (70-105) mg/dL Calcium 8.8 (8.6-10.3) mg/dL Adrenal panel 11/09/17 Range/Units 06:45 Sodium 135 L (136-145) mEq/L Potassium 4.9 D (3.5-5.1) mEq/L Chloride 98 (98-107) mEq/L Carbon Dioxide 24 (23-29) mEq/L BUN 59 H (8-23) mg/dL Creatinine 9.08 H (0.60-1.20) mg/dL Glucose 66 L (70-105) mg/dL Calcium 8.8 (8.6-10.3) mg/dL Total Bilirubin 0.4 (0.3-1.0) mg/dL AST 10 L (13-39) Units/L ALT 4 L (7-52) Units/L Alkaline Phosphatase 79 (34-104) Units/L Albumin 2.9 L (3.5-5.7) g/dL - VTE Documentation of Mechanical Device: Intermittent pneumatic compression device Consult Discharge Plan - Plan Referrals: Hugo Mercedes MD [Primary Care Provider] -
--- NOTE | 2017-11-09 11:03 | Nephrology Progress Note ---
Date of Encounter: 11/09/17 - Assessment and Plan (1) ESRD (end stage renal disease) on dialysis Current Visit: Yes Status: Acute Will dialyze again given still elevated BUN and potassium along with hyperphosphotemia (2) Hyperkalemia Current Visit: Yes Status: Acute Potassium noted at 5.5, continue renal diet (3) Low back pain Current Visit: Yes Status: Acute Qualifiers: Chronicity: chronic Back pain laterality: bilateral Sciatica presence: without sciatica Qualified Code(s): M54.5 - Low back pain; G89.29 - Other chronic pain Subjective Interval history: Pt seen and examined Objective - Vital Signs Vital signs: Vital Signs Temp Pulse Resp BP Pulse Ox 11/09/17 08:24 98.1 F 68 18 111/58 93 11/09/17 04:01 98.2 F 68 16 127/68 92 11/08/17 23:54 97.9 F 67 18 145/65 97 11/08/17 19:06 98.0 F 61 18 113/61 91 11/08/17 16:49 94 11/08/17 16:34 97.6 F 62 18 132/69 90 11/08/17 16:00 97.1 F L 18 123/65 11/08/17 15:35 114/63 11/08/17 15:20 118/59 11/08/17 15:05 106/64 Intake and Output 11/08/17 11/09/17 11/09/17 23:59 07:59 15:59 Intake Total 580 / 580 240 / 240 Output Total 1600 / 1600 0 / 0 Balance -1020 / -1020 240 / 240 Intake: IV Fluids 100 / 100 Zosyn 3.375 GM In 0.9 % Sodium 100 / 100 Chloride (Mini-Bag +) 100 ML @ 25 mls/hr IVPB Q12H [facility] Rx#: [id number] Oral 480 / 480 240 / 240 Output: Urine 0 / 0 0 / 0 Total Dialysis (HD) Output 1600 / 1600 Other: Meal crackers Breakfast Percent of Meal Consumed 50% 100% Weight 77.1 kg Blood Glucose* 89 109 89 Hemodialysis Net Fluid Removed 1000 (mL) - Lab 11/09/17 06:45 11/09/17 06:45 Most recent lab results Calcium 8.8 mg/dL (8.6-10.3) 11/09/17 06:45 Phosphorus 10.9 mg/dL (2.7-4.5) H 11/08/17 05:46 Magnesium 2.3 mg/dL (1.6-2.6) 11/08/17 05:46 - VTE Documentation of Mechanical Device: Intermittent pneumatic compression device Consult Discharge Plan - Plan Referrals: Hugo Mercedes MD [Primary Care Provider] -
--- NOTE | 2017-11-09 16:43 | Internal Med Progress Note ---
Date of Encounter: 11/09/17 Time of Encounter: 16:35 - Assessment and plan (1) Abdominal pain Current Visit: Yes Status: Acute Assessment and plan: abdominal pain is diffuse and RUQ, likley from L1 compression and Gallstone, current on zosyn, pending UA. 1. Hydropic gallbladder with layering gallstones. US showed Mild gallbladder distention with wall thickening and minimal pericholecystic fluid collection. Several microcalculi in the dependent portion of the gallbladder, will do lou GANb signed off, they recommended cholecystostomy tube if continued concern about her gallbladder VS can plan for outpatient follow up once comorbidities optimized 2. Diffuse urinary bladder wire wall thickening, out of proportion for degree of underdistention. Correlate with urinalysis. will check ,UA 4. 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 No new compression deformity. 5. 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 No new compression deformity. leukocytosis, continue zosyn, Qualifiers: Back pain location: low back pain Chronicity: chronic Back pain laterality: midline Sciatica presence: without sciatica Qualified Code(s): M54.5 - Low back pain; G89.29 - Other chronic pain (3) ESRD (end stage renal disease) on dialysis Current Visit: Yes Status: Chronic Assessment and plan: HD on MWF, nephrology is on board (4) IDDM (insulin dependent diabetes mellitus) Current Visit: Yes Status: Chronic Assessment and plan: on insulin pump (5) Atrial fibrillation Current Visit: Yes Status: Chronic Qualifiers: Atrial fibrillation type: chronic Qualified Code(s): I48.2 - Chronic atrial fibrillation (6) CAD (coronary artery disease) Current Visit: Yes Status: Chronic Assessment and plan: s/p stent Qualifiers: Coronary Disease-Associated Artery/Lesion type: [place] artery [place] vs. transplanted heart: [place] heart Associated angina: without angina Qualified Code(s): I25.10 - Atherosclerotic heart disease of [place] coronary artery without angina pectoris - Time Spent With Patient Total time spent is greater than 50% in coordination of care (as documented) at patient's floor/unit and/or counseling patient: 25 - 35 minutes - Subjective Interval history: Ms. Moffett is a 71 year old female with pmh chronic back pain s/p surgery about 3 years ago , ESRD-DD presenting with complaints of low back pain and abdominal pain that started on friday. Patient notes that both these back and abdominal pain started without any appparent triggers. She describes the abdominal pain as sharp 10/10 located diffusely in the abdomen but mostly in the left lower quadrant and right upper quadrant since friday . No relieving factors. Denies any fevers or chills. Also has low back pain which started on friday , 10/10 sharp which has left her unable to move and making her miss dialysis on friday. She denies any other acute complaints. In the ER, CT abdomen showed a gallbladder with layering gallstones and chronic L1 compression deformity. She denies any other acute complaints 1. Hydropic gallbladder with layering gallstones. US showed Mild gallbladder distention with wall thickening and minimal pericholecystic fluid collection. Several microcalculi in the dependent portion of the gallbladder, will do HIDA, surgeryb signed off, they recommended cholecystostomy tube if continued concern about her gallbladder VS can plan for outpatient follow up once comorbidities optimized 2. Diffuse urinary bladder wire wall thickening, out of proportion for degree of underdistention. Correlate with urinalysis. will check ,UA 3. severe volume overload, including small to moderate bilateral effusions, severe body wall anasarca, mesenteric edema and small volume ascites. Cannot exclude superimposed aspiration or pneumonia within areas of atelectatic lung. 4. 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 No new compression deformity. 5. leukocytosis, continue zosyn, - Constitutional Vitals: Temp Pulse Resp BP Pulse Ox 98.1 F 63 17 116/68 91 11/09/17 16:19 11/09/17 16:19 11/09/17 16:19 11/09/17 16:19 11/09/17 16:19 General appearance: Present: A&O X 3, pleasant, answers questions appropriately Exam: CONSTITUTIONAL: patient appears as an age appropriate email in no acute distress. EYES Clear sclerae, bilateral pupils are equal, reactive to light. EMOI. RESPIRATORY: No accessory muscle use, bilateral clear to auscultation, no wheezing, no crackles/rales. CARDIOVASCULAR: Regular heart rate, normal S1 and S2, no murmurs GASTROINTESTINAL: bowel sounds present, soft, diffuse tenderness. MUSCULOSKELETAL: Joints in normal range of motion, no clubbing, no edema, no cyanosis. Bilateral peripheral pulses 2+. NEUROLOGIC: CN II to XII are grossly intact, no focal neurological deficit. Internal Medicine: Result - Labs CBC & Chem 7: 11/09/17 06:45 11/09/17 06:45 Labs: Short CBC 11/09/17 Range/Units 06:45 WBC 12.0 H (4.3-11.1) K/mcL Hgb 11.2 L (11.5-15.4) g/dL Hct 33.6 L (35.3-44.9) % Plt Count 318 (140-400) K/mcL Neutrophils # 8.6 (1.6-8.9) K/mcL BMP 11/09/17 06:45 Sodium 135 L Potassium 4.9 D Chloride 98 Carbon Dioxide 24 BUN 59 H Creatinine 9.08 H Glucose 66 L Calcium 8.8 Liver Function 11/09/17 Range/Units 06:45 Total Bilirubin 0.4 (0.3-1.0) mg/dL AST 10 L (13-39) Units/L ALT 4 L (7-52) Units/L Alkaline Phosphatase 79 (34-104) Units/L Albumin 2.9 L (3.5-5.7) g/dL - VTE Documentation of Mechanical Device: Intermittent pneumatic compression device Consult Discharge Plan - Plan Referrals: Hugo Mercedes MD [Primary Care Provider] -
[2017-11-09 20:14] LABS: Clarity,Urine Turbid (Clear); Color,Urine Yellow (Yellow)
[2017-11-09 20:17] LABS: Bacteria,Urine Present per hpf (None-Few); Mucus,Urine Present (Few); RBC,Urine Present per hpf (0-3); Squamous Epithelial Cell,Urine Present per lpf (None-Few); WBC,Urine TNTC per hpf (0-3)
[2017-11-09 20:18] LABS: Urine Specimen Comments Mucoid Specimen
[2017-11-10] MEDS: *HR* Dextrose 50 % in Water (Syg) 50 ML SYRINGE IVP PRN (00:38)
[2017-11-10 06:02] LABS: Basophils # 0.1 K/mcL (0.0-0.2); Basophils % 0.5 %; Eosinophils # 0.4 K/mcL (0.0-0.6); Eosinophils % 3.1 %; Hematocrit 35.5 % (35.3-44.9); Hemoglobin 11.7 g/dL (11.5-15.4); Immature Granulocytes % 0.7 % (0-4); Lymphocytes # 1.4 K/mcL (0.6-4.6); Lymphocytes % 10.8 %; Mean Corpuscular Hemoglobin 32.9 pg (28.0-33.3); Mean Corpuscular Volume 99.7 fL (83.0-100.0); Mean Platelet Volume 10.7 fL (9.4-12.4); Monocytes # 1.7 K/mcL (0.0-1.3); Monocytes % 13.2 %; Neutrophils # 9.4 K/mcL (1.6-8.9); Platelet Count 343 K/mcL (140-400); Red Blood Count 3.56 M/mcL (3.82-4.97); Red Cell Distribution Width 14.5 % (11.5-14.5); Segmented Neutrophils % 71.7 %
[2017-11-10 06:20] LABS: Calcium 9.3 mg/dL (8.6-10.3); Potassium 5.5 mEq/L (3.5-5.1)
[2017-11-10] MEDS: *HR* Heparin 5,000 UNIT/ML VIAL SQ SCH ×2 (06:41→17:57)
[2017-11-10] MEDS ORDERED: 0.9 % Sodium Chloride 250 ML IVC PRN (07:33)
[2017-11-10] MEDS ORDERED: *HR* Heparin 5,000 UNIT/ML VIAL ONE (07:49)
[2017-11-10] MEDS ORDERED: INSULIN PUMP SQ SCH (09:00)
--- NOTE | 2017-11-10 09:22 | Nephrology Progress Note ---
Date of Encounter: 11/10/17 Time of Encounter: 09:21 - Assessment and Plan (1) ESRD (end stage renal disease) on dialysis Current Visit: Yes Status: Acute HD today. Current regimen MWF in [place]. Renal Diet when able to eat. Avoid nephrotoxins and renal dose all medications. Additional HD and UF as needed. (2) Hyperkalemia Current Visit: Yes Status: Acute K 5.5, HD in progress. Recommend renal diet, if not NPO. (3) Low back pain Current Visit: Yes Status: Acute Per primary. Qualifiers: Chronicity: chronic Back pain laterality: bilateral Sciatica presence: without sciatica Qualified Code(s): M54.5 - Low back pain; G89.29 - Other chronic pain Subjective Principal diagnosis: back pain Interval history: Pt seen and examined during hemodialysis. No nausea/vomiting. Objective - Vital Signs Vital signs: Vital Signs Temp Pulse Resp BP Pulse Ox 11/10/17 06:58 97.7 F 63 18 140/58 96 11/10/17 04:21 97.8 F 64 18 131/62 94 11/10/17 00:26 98.2 F 64 18 131/68 96 11/09/17 18:44 98.4 F 64 18 123/67 90 11/09/17 16:19 98.1 F 63 17 116/68 91 11/09/17 11:32 98.3 F 67 19 112/55 95 Intake and Output 11/09/17 11/10/17 11/10/17 23:59 07:59 15:59 Intake Total 0 / 0 Balance 0 / 0 Intake: Oral 0 / 0 Other: Meal Breakfast Percent of Meal Consumed 0% Stool Size Moderate Stool Consistency liquid soft Stool Color Brown # Bowel Movements 1 Blood Glucose* 78 70 - General Appearance General appearance: Present: well-developed, well-nourished EENT: Present: ATNC Dialysis Vascular Access: Arteriovenous Fistula thrill: Yes bruit: Yes Additional Comments: SHO. - Lab 11/10/17 05:35 11/10/17 05:35 Most recent lab results Calcium 9.3 mg/dL (8.6-10.3) 11/10/17 05:35 Phosphorus 10.9 mg/dL (2.7-4.5) H 11/08/17 05:46 Magnesium 2.3 mg/dL (1.6-2.6) 11/08/17 05:46 - VTE Documentation of Mechanical Device: Intermittent pneumatic compression device Consult Discharge Plan - Plan Referrals: Hugo Mercedes MD [Primary Care Provider] -
[2017-11-10] MEDS: Piperacillin/Tazobactam 3.375 GM in 0.9 % Sodium Chloride Mini Bag 100 ML IVPB SCH ×2 (10:19→19:40)
[2017-11-10] MEDS: Calcium Acetate 667 MG CAPSULE PO SCH ×3 (10:21→17:59)
[2017-11-10] MEDS: D10% in Water 500 ML IVC SCH ×2 (14:31→19:40)
--- NOTE | 2017-11-10 14:31 | Internal Med Progress Note ---
Date of Encounter: 11/10/17 Time of Encounter: 14:26 - Assessment and plan (1) Abdominal pain Current Visit: Yes Status: Acute Assessment and plan: abdominal pain is diffuse and RUQ, likley from L1 compression and Gallstone, current on zosyn, UA showed pyuria, covered by zosyn 1. Hydropic gallbladder with layering gallstones. US showed Mild gallbladder distention with wall thickening and minimal pericholecystic fluid collection. Several microcalculi in the dependent portion of the gallbladder. surgery signed off, they recommended cholecystostomy tube if continued concern about her gallbladder VS can plan for outpatient follow up once comorbidities optimized 2. Diffuse urinary bladder wire wall thickening, out of proportion for degree of underdistention. Correlate with urinalysis. will check ,UA 4. 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 No new compression deformity. 5. leukocytosis from cholecystitis? and UTI, continue zosyn, pending HIDA scan, if positive, then need to discuss with surgeon, patient does not like cholecystostomy tube. Qualifiers: Abdominal location: generalized Qualified Code(s): R10.84 - Generalized abdominal pain (2) Back pain Current Visit: Yes Status: Chronic Assessment and plan: likely from Spine stenosis and L1 compression, pending L-spine MRI to r/o abscess CT scan showed Unchanged L1 chronic compression deformity, and L3-L4 destructive changes resulting in severe canal stenosis. No new compression deformity. leukocytosis, continue zosyn, Qualifiers: Back pain location: low back pain Chronicity: chronic Back pain laterality: midline Sciatica presence: without sciatica Qualified Code(s): M54.5 - Low back pain; G89.29 - Other chronic pain (3) ESRD (end stage renal disease) on dialysis Current Visit: Yes Status: Chronic Assessment and plan: HD on MWF, nephrology is on board (4) IDDM (insulin dependent diabetes mellitus) Current Visit: Yes Status: Chronic Assessment and plan: On insulin pump, hypoglycemia from nothing by mouth. We will start a D10 drip at 50 mL during nothing by mouth time (5) Atrial fibrillation Current Visit: Yes Status: Chronic Qualifiers: Atrial fibrillation type: chronic Qualified Code(s): I48.2 - Chronic atrial fibrillation (6) CAD (coronary artery disease) Current Visit: Yes Status: Chronic Qualifiers: Coronary Disease-Associated Artery/Lesion type: [place] artery [place] vs. transplanted heart: [place] heart Associated angina: without angina Qualified Code(s): I25.10 - Atherosclerotic heart disease of [place] coronary artery without angina pectoris - Time Spent With Patient Total time spent is greater than 50% in coordination of care (as documented) at patient's floor/unit and/or counseling patient: - Subjective Interval history: Ms. Moffett is a 71 year old female with pmh chronic back pain s/p surgery about 3 years ago , ESRD-DD presenting with complaints of low back pain and abdominal pain that started on friday. Patient notes that both these back and abdominal pain started without any appparent triggers. She describes the abdominal pain as sharp 10/10 located diffusely in the abdomen but mostly in the left lower quadrant and right upper quadrant since friday . No relieving factors. Denies any fevers or chills. Also has low back pain which started on friday , 10/10 sharp which has left her unable to move and making her miss dialysis on friday. She denies any other acute complaints. In the ER, CT abdomen showed a gallbladder with layering gallstones and chronic L1 compression deformity. She denies any other acute complaints 1. Hydropic gallbladder with layering gallstones. US showed Mild gallbladder distention with wall thickening and minimal pericholecystic fluid collection. Several microcalculi in the dependent portion of the gallbladder, will do HIDA, surgeryb signed off, they recommended cholecystostomy tube if continued concern about her gallbladder VS can plan for outpatient follow up once comorbidities optimized 2. Diffuse urinary bladder wire wall thickening, out of proportion for degree of underdistention. Correlate with urinalysis. will check ,UA 3. severe volume overload, including small to moderate bilateral effusions, severe body wall anasarca, mesenteric edema and small volume ascites. Cannot exclude superimposed aspiration or pneumonia within areas of atelectatic lung. 4. 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 No new compression deformity. 5. leukocytosis, continue zosyn, patient is seen at HD unit she still has hypoglycemia, discussed with nurse, will start D10w drip, since patient is NPO for HIDA, she has insulin pump. if HIDA scan is positive, need to discuss with surgeon, patient does not like to have cholecystostomy tube - Constitutional Vitals: Temp Pulse Resp BP Pulse Ox 97.7 F 63 18 140/58 96 11/10/17 06:58 11/10/17 06:58 11/10/17 06:58 11/10/17 06:58 11/10/17 06:58 General appearance: Present: A&O X 3, pleasant, answers questions appropriately Exam: CONSTITUTIONAL: patient appears as an age appropriate female in no acute distress. EYES Clear sclerae, bilateral pupils are equal, reactive to light. EMOI. RESPIRATORY: No accessory muscle use, bilateral clear to auscultation, no wheezing, no crackles/rales. CARDIOVASCULAR: Regular heart rate, normal S1 and S2, no murmurs GASTROINTESTINAL: bowel sounds present, soft, no tenderness. MUSCULOSKELETAL: Joints in normal range of motion, no clubbing, no edema, no cyanosis. Bilateral peripheral pulses 2+. NEUROLOGIC: CN II to XII are grossly intact, no focal neurological deficit. Internal Medicine: Result - Labs CBC & Chem 7: 11/10/17 05:35 11/10/17 05:35 Labs: Short CBC 11/10/17 Range/Units 05:35 WBC 13.1 H (4.3-11.1) K/mcL Hgb 11.7 (11.5-15.4) g/dL Hct 35.5 (35.3-44.9) % Plt Count 343 (140-400) K/mcL Neutrophils # 9.4 H (1.6-8.9) K/mcL BMP 11/10/17 05:35 Sodium 134 L Potassium 5.5 H Chloride 97 L Carbon Dioxide 22 L BUN 65 H Creatinine 9.82 H Glucose 77 Calcium 9.3 Urine 11/09/17 Range/Units 19:40 Urine Color Yellow (Yellow) Urine Clarity Turbid A (Clear) Urine pH TNP Ur Specific Moore TNP Urine Protein TNP Urine Glucose (UA) TNP - VTE Documentation of Mechanical Device: Intermittent pneumatic compression device Consult Discharge Plan - Plan Referrals: Hugo Mercedes MD [Primary Care Provider] -
[2017-11-10] MEDS: Isosorbide MONOnitrate (24 HR) 60 MG TAB.ER.24H PO SCH (17:57)
[2017-11-10] MEDS: *HR* OxyCODONE/APAP 10/325 TABLET PO PRN (17:58)
[2017-11-10] MEDS: Aspirin Enteric Coated 81 MG Tablet PO SCH (17:58)
[2017-11-10] MEDS: Renal Vitamin 1 CAP CAPSULE PO SCH (17:58)
[2017-11-11] MEDS: *HR* OxyCODONE/APAP 10/325 TABLET PO PRN ×2 (00:16→06:45)
[2017-11-11] MEDS: D10% in Water 500 ML IVC SCH (04:30)
[2017-11-11 05:38] LABS: Hematocrit 32.8 % (35.3-44.9); Hemoglobin 10.9 g/dL (11.5-15.4); Mean Corpuscular HGB Conc 33.2 g/dL (31.6-35.5); Mean Corpuscular Hemoglobin 32.6 pg (28.0-33.3); Mean Corpuscular Volume 98.2 fL (83.0-100.0); Mean Platelet Volume 10.9 fL (9.4-12.4); Platelet Count 353 K/mcL (140-400); Red Blood Count 3.34 M/mcL (3.82-4.97); Red Cell Distribution Width 14.5 % (11.5-14.5)
[2017-11-11 06:23] LABS: Calcium 8.9 mg/dL (8.6-10.3); Potassium 4.9 mEq/L (3.5-5.1)
[2017-11-11] MEDS: *HR* Heparin 5,000 UNIT/ML VIAL SQ SCH ×2 (06:44→18:21)
[2017-11-11] MEDS: Piperacillin/Tazobactam 3.375 GM in 0.9 % Sodium Chloride Mini Bag 100 ML IVPB SCH ×2 (06:45→18:22)
[2017-11-11 07:53] LABS: Adenovirus Not Detected (Not Detect); Bordetella Pertussis Not Detected (Not Detect); Chlamydophila pneumoniae Not Detected (Not Detect); Coronavirus 229E Not Detected (Not Detect); Coronavirus HKU1 Not Detected (Not Detect); Coronavirus NL63 Not Detected (Not Detect); Coronavirus OC43 Not Detected (Not Detect); Human Metapneumovirus Not Detected (Not Detect); Human Rhinovirus/Enterovirus Not Detected (Not Detect); Influenza A Subtype 2009 H1 Not Detected (Not Detect); Influenza A Untypeable Not Detected (Not Detect); Influenza B Not Detected (Not Detect); Mycoplasma pneumoniae Not Detected (Not Detect); Parainfluenza Virus 1 Not Detected (Not Detect); Parainfluenza Virus 2 Not Detected (Not Detect); Parainfluenza Virus 3 Not Detected (Not Detect); Parainfluenza Virus 4 Not Detected (Not Detect); Respiratory Syncytial Virus Not Detected (Not Detect)
[2017-11-11] MEDS: Renal Vitamin 1 CAP CAPSULE PO SCH (09:12)
[2017-11-11] MEDS: Aspirin Enteric Coated 81 MG Tablet PO SCH (09:12)
[2017-11-11] MEDS: Calcium Acetate 667 MG CAPSULE PO SCH ×3 (09:12→16:47)
[2017-11-11] MEDS: Isosorbide MONOnitrate (24 HR) 60 MG TAB.ER.24H PO SCH (09:13)
--- NOTE | 2017-11-11 09:14 | Nephrology Progress Note ---
Date of Encounter: 11/11/17 Time of Encounter: 09:11 - Assessment and Plan (1) ESRD (end stage renal disease) on dialysis Current Visit: Yes Status: Chronic Current regimen MWF in [place]. Plan for HD tomorrow. Avoid nephrotoxins and renal dose all medications. Additional HD and UF as needed. (2) Dialysis catheter clot or failure Current Visit: Yes Status: Acute NPO after midnight. Known IVP dye allergy, pre medications ordered for tonight and tomorrow. Medications include 32 MG PO Medrol at 1800 tonight and 6 am tomorrow. 50 MG PO Benadryl given at 0700 tomorrow. May have medications with sips of water. Please resume renal diet after procedure tomorrow. (3) Low back pain Current Visit: Yes Status: Acute Per primary. Qualifiers: Chronicity: chronic Back pain laterality: bilateral Sciatica presence: without sciatica Qualified Code(s): M54.5 - Low back pain; G89.29 - Other chronic pain (4) Hyperkalemia Current Visit: Yes Status: Acute K 4.9, stable. Recommend renal diet, if not NPO. Subjective Principal diagnosis: back pain Interval history: Pt seen and examined. NAD, no nausea/vomiting. Objective - Vital Signs Vital signs: Vital Signs Temp Pulse Resp BP Pulse Ox 11/11/17 08:04 97.8 F 65 16 155/77 97 11/11/17 03:55 97.9 F 62 18 134/69 95 11/10/17 23:02 98.6 F 60 18 150/66 94 11/10/17 19:57 99.1 F 69 18 134/68 93 11/10/17 15:34 98.8 F 73 18 162/72 92 11/10/17 12:15 98.7 F 15 160/73 11/10/17 12:00 145/74 11/10/17 11:45 151/70 11/10/17 11:30 153/71 11/10/17 11:15 152/72 11/10/17 11:00 150/77 11/10/17 10:45 149/70 11/10/17 10:30 146/65 11/10/17 10:15 150/77 11/10/17 10:00 149/73 11/10/17 09:45 155/73 11/10/17 09:30 152/72 11/10/17 09:15 143/70 Intake and Output 11/10/17 11/11/17 11/11/17 23:59 07:59 15:59 Intake Total 550 / 550 600 / 600 Balance 550 / 550 600 / 600 Intake: IV Fluids 500 / 500 600 / 600 Dextrose 10% Water 500 Ml Ivbag 500 / 500 500 ML @ 50 mls/hr IVC .Q10H CINDY Rx#:[id number] Dextrose 5% 1,000 ML @ 100 mls/ 500 / 500 hr IVC .Q10H PRN Rx#:[id number] Zosyn 3.375 GM In 0.9 % Sodium 100 / 100 Chloride (Mini-Bag +) 100 ML @ 25 mls/hr IVPB Q12H CINDY Rx#: [id number] Oral 50 / 50 Other: Meal Dinner Percent of Meal Consumed 50% Stool Size Moderate Stool Consistency liquid soft Stool Color Brown # Voids 1 # Bowel Movements 1 Weight 79.2 kg Blood Glucose* 158 106 Patient Weight 11/11/17 23:59 Weight 79.2 kg - General Appearance General appearance: Present: well-developed, well-nourished EENT: Present: ATNC, hearing intact, vision intact Neck: Present: supple Respiratory: Present: clear Cardiology: Present: no edema, normal S1, normal S2 Dialysis Vascular Access: Arteriovenous Fistula thrill: Yes bruit: Yes Gastrointestinal: Present: normoactive bowel sounds, no tenderness, no guarding Integumentary: Present: no rash, warm and dry Neurologic: Present: alert and oriented x3 Psychiatric: Present: mood/affect appropriate, cooperative - Lab 11/11/17 05:15 11/11/17 05:15 Most recent lab results Calcium 8.9 mg/dL (8.6-10.3) 11/11/17 05:15 Phosphorus 10.9 mg/dL (2.7-4.5) H 11/08/17 05:46 Magnesium 2.3 mg/dL (1.6-2.6) 11/08/17 05:46 - VTE Documentation of Mechanical Device: Intermittent pneumatic compression device Consult Discharge Plan - Plan Referrals: Hugo Mercedes MD [Primary Care Provider] -
--- NOTE | 2017-11-11 13:39 | Internal Med Progress Note ---
Date of Encounter: 11/11/17 Time of Encounter: 13:34 - Assessment and plan (1) Abdominal pain Current Visit: Yes Status: Acute Assessment and plan: Right upper quadrant abdominal pain. Patient's HIDA scan does not show any cholecystitis but patient does have biliary dyskinesia. At this time, would recommend outpatient follow-up with surgery as patient was not willing to undergo cholecystostomy. Continue to treat pain. Goals of care would be to control pain with oral medications and discharge patient for outpatient follow- up with surgery. Patient understands this and is agreeable to treatment plan. Qualifiers: Abdominal location: generalized Qualified Code(s): R10.84 - Generalized abdominal pain (2) Low back pain Current Visit: Yes Status: Acute Assessment and plan: Continued low back pain. MRI of the lumbar spine shows changes concerning for acute on chronic discitis/osteomyelitis at L3-4 and to elicit this degree at L4- L5 levels. Moderate L3-L4 spinal canal stenosis and severe bilateral L4 neural foraminal narrowing. Discussed this findings with spine surgery and consulted them for further evaluation. MRI done last year showed similar findings. We will follow spine surgery recommendations. Qualifiers: Chronicity: chronic Back pain laterality: bilateral Sciatica presence: without sciatica Qualified Code(s): M54.5 - Low back pain; G89.29 - Other chronic pain (3) Hypertension Current Visit: Yes Status: Chronic Assessment and plan: Controlled but intermittently elevated due to pain. On carvedilol, losartan. We will add amlodipine to control blood pressure better. Qualifiers: Hypertension type: essential hypertension Qualified Code(s): I10 - Essential (primary) hypertension (4) Hypothyroid Current Visit: Yes Status: Chronic Assessment and plan: Continue levothyroxine Qualifiers: Hypothyroidism type: unspecified Qualified Code(s): E03.9 - Hypothyroidism , unspecified (5) ESRD (end stage renal disease) on dialysis Current Visit: Yes Status: Chronic Assessment and plan: Nephrology following for dialysis needs. (6) Diabetes Current Visit: Yes Status: Chronic Assessment and plan: Diet controlled. 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 Patient currently receiving Zosyn. Respiratory infection panel is negative. If no signs of osteomyelitis/discitis per spine surgery evaluation, we will de-escalate antibiotics. - Time Spent With Patient Total time spent is greater than 50% in coordination of care (as documented) at patient's floor/unit and/or counseling patient: - Subjective Interval history: Patient continues to have abdominal pain. Reports that it is slightly improved compared to yesterday. Does have nausea but no episodes of emesis. Underwent HIDA scan and MRI yesterday. - Constitutional Vitals: Temp Pulse Resp BP Pulse Ox 98.0 F 67 15 134/67 96 11/11/17 11:30 11/11/17 11:30 11/11/17 11:30 11/11/17 11:30 11/11/17 11:30 General appearance: Present: A&O X 3, pleasant, answers questions appropriately - Eye Eye exam: Present: PERRL, conjuntiva pink, sclera anicteric - Neck Neck exam general surgery: Present: supple, trachea midline. Absent: lymphadenopathy - Respiratory Respiratory exam: Present: CTAB. Absent: accessory muscle use, rales, rhonchi, wheezes - Cardiovascular Cardiovascular exam: Present: RRR, +S1, +S2. Absent: diastolic murmur, gallop, rubs, systolic murmur - GI/Abdominal GI/Abdominal exam: Present: normal bowel sounds, soft, tenderness (Right upper quadrant), no peritoneal signs. Absent: distended - Extremities Exam Extremities exam: Present: warm, radial pulses palpable and symmetrical. Absent : calf tenderness, cyanotic, pedal edema - Neurological Exam Neurological exam: Present: alert, oriented X3, no focal deficits. Absent: facial droop, speech deficit Internal Medicine: Result - Labs CBC & Chem 7: 11/11/17 05:15 11/11/17 05:15 Labs: Short CBC 11/11/17 Range/Units 05:15 WBC 11.8 H (4.3-11.1) K/mcL Hgb 10.9 L (11.5-15.4) g/dL Hct 32.8 L (35.3-44.9) % Plt Count 353 (140-400) K/mcL [facility] 11/11/17 05:15 Sodium 132 L Potassium 4.9 Chloride 95 L Carbon Dioxide 22 L BUN 53 H Creatinine 8.36 H Glucose 142 H Calcium 8.9 - Impressions Impressions Liver Scan Nuclear Medicine 11/09/17 16:42 IMPRESSION: No convincing scintigraphic evidence of acute or chronic cholecystitis. Decreased gallbladder ejection fraction suggesting gallbladder dyskinesia. D/ / Jesus Rizvi MD / Jesus Rizvi MD Interpreting Provider: Jesus Rizvi MD Lumbar Spine MRI 11/09/17 18:15 IMPRESSION: 1. Suboptimal evaluation due to diffuse soft tissue edema. 2. No appreciable change in findings of acute on chronic discitis/osteomyelitis at the L3-4 and, to a lesser degree, the L4-5 levels with destructive changes at L3-4 and posterior cortex retropulsion causing moderate L3-4 spinal canal stenosis and severe bilateral L4 neural foraminal narrowing. 3. No evidence of epidural or paraspinal abscess. 4. Unchanged L1 compression fracture with marrow edema subjacent to the superior endplate suggesting an ongoing acute to subacute component. D/ / Ray Phillips / Ray Phillips Interpreting Provider: Ray Phillips Lumbar Spine X-Ray 11/11/17 11:49 IMPRESSION: Markedly limited exam due to osteopenia. No definite spondylolisthesis. Deformities of the L1, L3-L4 vertebral bodies are again identified and correlate to recent MR findings of subacute to chronic compression fracture and discitis/osteomyelitis, respectively. D/ / 11/11/2017 12:55:24 Lizbeth Abbasi MD / basilia Interpreting Provider: Lizbeth Abbasi MD - VTE Documentation of Mechanical Device: Intermittent pneumatic compression device Consult Discharge Plan - Plan Referrals: Hugo Mercedes MD [Primary Care Provider] -
[2017-11-11] MEDS: amLODIPine 5 MG TABLET PO SCH (14:59)
[2017-11-11] MEDS ORDERED: (INSULIN PUMP) SQ SCH (16:45)
[2017-11-11] MEDS: *HR* OxyCODONE Immed Rel 5 MG TABLET PO PRN (16:47)
[2017-11-11] MEDS ORDERED: methylPREDNISolone 4 MG TABLET PO ONE (18:00)
[2017-11-11] MEDS: Gabapentin 100 MG CAPSULE PO SCH (21:33)
[2017-11-12] MEDS: *HR* OxyCODONE Immed Rel 5 MG TABLET PO PRN ×2 (00:29→22:51)
[2017-11-12 03:59] LABS: Hematocrit 33.9 % (35.3-44.9); Hemoglobin 11.4 g/dL (11.5-15.4); Mean Corpuscular HGB Conc 33.6 g/dL (31.6-35.5); Mean Corpuscular Hemoglobin 32.9 pg (28.0-33.3); Mean Platelet Volume 11.1 fL (9.4-12.4); Platelet Count 395 K/mcL (140-400); Red Blood Count 3.46 M/mcL (3.82-4.97); Red Cell Distribution Width 14.1 % (11.5-14.5)
[2017-11-12 04:19] LABS: Potassium 6.4 mEq/L (3.5-5.1)
[2017-11-12] MEDS ORDERED: methylPREDNISolone 4 MG TABLET PO ONE (06:00)
[2017-11-12] MEDS: *HR* Heparin 5,000 UNIT/ML VIAL SQ SCH ×2 (06:10→17:11)
[2017-11-12] MEDS: Piperacillin/Tazobactam 3.375 GM in 0.9 % Sodium Chloride Mini Bag 100 ML IVPB SCH ×2 (06:38→17:11)
[2017-11-12] MEDS: Calcium Acetate 667 MG CAPSULE PO SCH ×3 (07:37→15:05)
[2017-11-12] MEDS ORDERED: 0.9 % Sodium Chloride 250 ML IVC PRN (07:59)
[2017-11-12] MEDS: Gabapentin 100 MG CAPSULE PO SCH ×4 (08:23→22:50)
[2017-11-12] MEDS: Renal Vitamin 1 CAP CAPSULE PO SCH (08:23)
[2017-11-12] MEDS: Aspirin Enteric Coated 81 MG Tablet PO SCH (08:24)
--- NOTE | 2017-11-12 08:38 | Spinal Consult Note ---
Date of Encounter: 11/12/17 Time of Encounter: 08:36 Assessment and Plan (1) History of lumbar spinal fusion Current Visit: Yes Status: Acute (2) Osteopenia Current Visit: Yes Status: Chronic Qualifiers: Osteopenia location: lumbar spine Qualified Code(s): M85.88 - Other specified disorders of bone density and structure, other site (3) History of vertebral compression fracture Current Visit: Yes Status: Chronic On exam she is an awake and alert in moderate distress secondary to back pain. She is afebrile vital signs stable. She can fire all upper extremity motor groups. She has weakness in the bilateral lower extremities in knee flexion and extension as well as dorsiflexion and plantar flexion. She has no clonus. Her hips move symmetrically. Sensations intact to light touch distally. She has pain with flexion of the lumbar spine. Flexion extension lumbar spine is limited. She has mild tenderness to palpation of the thoracic or lumbar region. AP and lateral views of the lumbar spine reveals significant osteopenic changes throughout the lumbar spines. There is a probable chronic compression fracture at L1. There is loss of disc space height and bony destructive changes which appear chronic at L3-4. There are multilevel degenerative changes. MRI of the lumbar spine reveals chronic degenerative changes with bony destruction and loss of disc space height at L3-4. Evidence of chronic/ subacute compression fracture of L1. There is no epidural abscess apparent. There is moderate stenosis at L3-4 and L4-5. Impression: 1) history of spinal fusion complicated by infection 2) history of discitis/osteomyelitis lumbar spine 3) lumbar stenosis 4) chronic compression fracture lumbar spine 5) weakness in lower extremities chronic 6) multiple medical comorbidities including end-stage renal disease 7) osteopenia Plan: I would treat the patient nonoperatively. She is a poor surgical candidate and cannot be instrumented because she has severe osteopenia and could not maintain hardware. She is also at high risk for postsurgical complications such as infection. Her fractures appear more chronic in nature and are not likely to be improved with vertebral augmentation such as kyphoplasty. She has weakness and poor mobility and likely will need rehabilitation. I would focus on rehabilitation, physical therapy, and analgesics for pain control. History of Present Illness Chief complaint: Chronic back pain, leg weakness HPI: Ms. Moffett is a 71 year old female Who has a history of chronic back pain extend over several years worse in the past year. She says she is also not having difficulty mobilizing. She has a history of previous multilevel lumbar fusion performed at [facility]. This was complicated by postoperative infection which required removal of the hardware, irrigation and debridement, and intravenous antibiotics. She has known destruction of vertebral body and disc spaces in part due to her previous infection. She has multiple medical comorbidities including osteopenia and end- stage renal disease on dialysis. We are asked to see regarding back pain in abnormalities on MRI examination. She denies fevers or chills. Past Med Surg Social Fam HX - Past Medical History Medical history: coronary artery disease, diabetes, dialysis, hyperlipidemia, hypertension, renal disease, thyroid disease Additional medical history: Hemodialysis M, W, F. Psychiatric history: anxiety, depression - Past Surgical History Surgical History: hysterectomy, orthopedic, other, other, vascular surgery Additional surgical history: fistula placement LANCE, back sx with 8 screws and 2 rods - Social History Smoking Status: Never smoker Smokeless Tobacco Status: No Alcohol use: none Drug use: none - Family History Mother Living Status: Hx Family Cardiac Disorders: Yes (CAD) Father Living Status: Hx Family Cancer: Yes (Colon) Hx Family Endocrine Disorder: Yes (DM) Brother Living Status: Hx Family Cancer: Yes (Colon) Hx Family Endocrine Disorder: Yes (DM) Sister Living Status: Hx Family Cardiac Disorders: Yes Hx Family Cancer: Yes (Cervical) Hx Family Endocrine Disorder: Yes (DM) Medications and Allergies Levothyroxine Sodium [Synthroid] 200 mcg PO DAILY 02/08/16 [History] Atorvastatin [Lipitor] 40 mg PO DAILY 05/26/16 [History] Calcium Acetate [Phos-LO] 667 mg PO TIDWM 05/26/16 [History] Duloxetine HCl [Cymbalta] 30 mg PO DAILY 05/26/16 [History] Ergocalciferol (VITAMIN D2) [Vitamin D2] 50,000 unit PO WE 05/26/16 [History] LORazepam [Ativan] 0.5 - 1 mg PO BID PRN 05/26/16 [History] Renal Vitamin [Renal Caps Softgel] 1 mg PO DAILY 05/26/16 [History] Allopurinol [Zyloprim 300 MG] 300 mg PO DAILY 05/27/16 [History] Clopidogrel [Plavix] 75 mg PO DAILY 02/27/17 [History] Losartan Potassium [Cozaar] 100 mg PO DAILY 03/26/17 [History] Ezetimibe 10 mg PO DAILY 09/19/17 [History] Insulin Pump Cartridge [Insulin Pump] 1 device SQ AD 09/19/17 [History] Omeprazole [PriLOSEC] 40 mg PO BID 09/19/17 [History] OxyCODONE Immed Rel [Roxicodone 10 MG] 10 mg PO TID PRN 09/19/17 [History] Aspirin [Adult Aspirin Regimen] 81 mg PO DAILY 30 Days #30 tablet.dr 09/20/17 [ Rx] Carvedilol [Coreg] 12.5 mg PO BIDWM 30 Days #60 tablet 09/20/17 [Rx] Hydralazine HCl 50 mg PO TID #90 tablet 09/20/17 [Rx] amLODIPine [Norvasc] 10 mg PO DAILY tablet 09/20/17 [Rx] Citalopram Hydrobromide [Citalopram HBr] 20 mg PO BID 11/07/17 [History] Furosemide [Lasix] 40 mg PO DAILY 11/07/17 [History] Gabapentin [Neurontin] 300 mg PO BID 11/07/17 [History] Lidocaine [Lidocaine] 1 patch TD Q12H PRN 11/07/17 [History] Metoprolol Succinate [Toprol Xl] 50 mg PO DAILY 11/07/17 [History] Pantoprazole Sodium [Protonix] 40 mg PO DAILY 11/07/17 [History] Sevelamer [Renvela] 800 mg PO TID 11/07/17 [History] 3 Allergy/AdvReac Type Severity Reaction Status Date / Time IVP DYE AdvReac See Uncoded 11/07/17 08:14 Comments ivp dye AdvReac See Uncoded 03/26/17 09:56 Comments Results - Labs Result Diagrams: 11/12/17 03:31 11/12/17 03:31 Labs: Abnormal lab results WBC 12.0 K/mcL (4.3-11.1) H 11/12/17 03:31 RBC 3.46 M/mcL (3.82-4.97) L 11/12/17 03:31 Hgb 11.4 g/dL (11.5-15.4) L 11/12/17 03:31 Hct 33.9 % (35.3-44.9) L 11/12/17 03:31 Neutrophils # 9.4 K/mcL (1.6-8.9) H 11/10/17 05:35 Monocytes # 1.7 K/mcL (0.0-1.3) H 11/10/17 05:35 Sodium 129 mEq/L (136-145) L 11/12/17 03:31 Potassium 6.4 mEq/L (3.5-5.1) H D 11/12/17 03:31 Chloride 93 mEq/L (98-107) L 11/12/17 03:31 Carbon Dioxide 20 mEq/L (23-29) L 11/12/17 03:31 BUN 63 mg/dL (8-23) H 11/12/17 03:31 Creatinine 9.54 mg/dL (0.60-1.20) H 11/12/17 03:31 Est GFR ( Amer) 5 (> 60) L 11/12/17 03:31 Est GFR (Non-Af Amer) 4 (> 60) L 11/12/17 03:31 Glucose 268 mg/dL (70-105) H 11/12/17 03:31 POC Glucose 269 mg/dL (70-99) H 11/11/17 18:48 Hemoglobin A1c 10.7 % (-5.6) H 11/07/17 05:13 Phosphorus 10.9 mg/dL (2.7-4.5) H 11/08/17 05:46 AST 10 Units/L (13-39) L 11/09/17 06:45 ALT 4 Units/L (7-52) L 11/09/17 06:45 Serum Total Protein 6.0 g/dL (6.4-8.9) L 11/09/17 06:45 Albumin 2.9 g/dL (3.5-5.7) L 11/09/17 06:45 Albumin/Globulin Ratio 0.9 (1.1-2.2) L 11/09/17 06:45 Lipase < 3 Units/L (11-82) L 11/07/17 05:13 Ur Specimen Adequacy Mucoid Specimen A 11/09/17 19:40 Urine Clarity Turbid (Clear) A 11/09/17 19:40 Urine Microscopic WBC TNTC per hpf (0-3) H 11/09/17 19:40 H & H 11/12/17 Range/Units 03:31 Hgb 11.4 L (11.5-15.4) g/dL Hct 33.9 L (35.3-44.9) % All other labs normal. Consult Discharge Plan - Plan Referrals: Hugo Mercedes MD [Primary Care Provider] -
[2017-11-12 08:58] LABS: Blood Urea Nitrogen 72 mg/dL (8-23)
--- NOTE | 2017-11-12 09:11 | Nephrology Progress Note ---
Date of Encounter: 11/12/17 Time of Encounter: 09:08 - Assessment and Plan (1) ESRD (end stage renal disease) on dialysis Current Visit: Yes Status: Chronic Current regimen MWF in [place]. HD today. Avoid nephrotoxins and renal dose all medications. Additional HD and UF as needed. (2) Dialysis catheter clot or failure Current Visit: Yes Status: Acute Plan to go to IR today for fistulagram. Known IVP Dye, pre medications already ordered. Yanira, federal law clerk obtaining pre/post BUN and post K. Will help determine if Fistula is working correctly. If Fistula is working, she can go home from renal stand point, if not, then she might need a Tunneled Line. (3) Low back pain Current Visit: Yes Status: Acute Per primary. Qualifiers: Chronicity: chronic Back pain laterality: bilateral Sciatica presence: without sciatica Qualified Code(s): M54.5 - Low back pain; G89.29 - Other chronic pain (4) Hyperkalemia Current Visit: Yes Status: Acute K 6.4, will correct with HD and recheck after treatment. Recommend renal diet, if not NPO. Subjective Principal diagnosis: back pain Interval history: Pt seen and examined during HD, tolerating well. NAD, denies nausea/vomiting. Objective - Vital Signs Vital signs: Vital Signs Temp Pulse Resp BP Pulse Ox 11/12/17 08:35 93 11/12/17 07:28 98.8 F 69 16 150/52 93 11/12/17 03:49 98.4 F 68 16 155/61 95 11/12/17 00:27 98.2 F 68 18 152/66 94 11/11/17 18:54 98.7 F 71 18 151/65 88 11/11/17 15:46 98.2 F 70 18 138/62 93 11/11/17 11:30 98.0 F 67 15 134/67 96 Intake and Output 11/11/17 11/12/17 11/12/17 23:59 07:59 15:59 Intake Total 100 / 100 50 / 50 Output Total 0 / 0 Balance 100 / 100 50 / 50 Intake: IV Fluids 100 / 100 Zosyn 3.375 GM In 0.9 % Sodium 100 / 100 Chloride (Mini-Bag +) 100 ML @ 25 mls/hr IVPB Q12H [facility] Rx#: [id number] Oral 50 / 50 Output: Urine 0 / 0 Other: Meal npo # Voids 1 Weight 80 kg Blood Glucose* 269 300 Patient Weight 11/12/17 23:59 Weight 80 kg - General Appearance General appearance: Present: well-developed, well-nourished EENT: Present: ATNC, hearing intact, vision intact Neck: Present: supple Respiratory: Present: clear Cardiology: Present: no edema, normal S1, normal S2 Dialysis Vascular Access: Arteriovenous Fistula thrill: Yes bruit: Yes Gastrointestinal: Present: normoactive bowel sounds, no tenderness, no guarding Integumentary: Present: no rash, warm and dry Neurologic: Present: alert and oriented x3 Psychiatric: Present: mood/affect appropriate, cooperative - Lab 11/12/17 03:31 11/12/17 08:22 Most recent lab results Calcium 9.0 mg/dL (8.6-10.3) 11/12/17 03:31 Phosphorus 10.9 mg/dL (2.7-4.5) H 11/08/17 05:46 Magnesium 2.3 mg/dL (1.6-2.6) 11/08/17 05:46 - VTE Documentation of Mechanical Device: Intermittent pneumatic compression device Consult Discharge Plan - Plan Referrals: Hugo Mercedes MD [Primary Care Provider] -
[2017-11-12] MEDS ORDERED: 0.9 % Sodium Chloride 500 ML ONE ×2 (13:01→13:40)
[2017-11-12] MEDS ORDERED: Heparin 1,000 UNITS/500 mL 500 ML ONE (13:01)
[2017-11-12] MEDS ORDERED: methylPREDNISolone 125 MG/2 ML VIAL IVP ONE (13:10)
--- NOTE | 2017-11-12 13:24 | Internal Med Progress Note ---
Date of Encounter: 11/12/17 Time of Encounter: 09:00 - Assessment and plan (1) Abdominal pain Current Visit: Yes Status: Acute Assessment and plan: Improved today. No signs of acute cholecystitis. She does have biliary dyskinesia and will follow up outpatient with surgery. Refuses cholecystostomy for hydropic gallbladder. Qualifiers: Abdominal location: generalized Qualified Code(s): R10.84 - Generalized abdominal pain (2) Low back pain Current Visit: Yes Status: Acute Assessment and plan: With prior history of vertebral osteomyelitis which was treated before. MRI and CT of the lumbar spine showed multiple destructive lesions significant osteopenia and destructive changes with findings suggestive of chronic discitis/ osteomyelitis. Consulted spine surgery. Patient has not had any fever and her cultures have been negative. She has also been previously treated with IV antibiotics for her osteomyelitis. As such, spine surgery does not recommend any further workup at this time as this appears to be chronic changes with no significant change on MRI compared to the prior images. They also recommended no surgical intervention at this time given her underlying osteopenia. Continue conservative management. PTOT. Placement to skilled rehabilitation. Pain control. Qualifiers: Chronicity: chronic Back pain laterality: bilateral Sciatica presence: without sciatica Qualified Code(s): M54.5 - Low back pain; G89.29 - Other chronic pain (3) Hypertension Current Visit: Yes Status: Chronic Assessment and plan: Blood pressure is well controlled at this time. Continue current medications Qualifiers: Hypertension type: essential hypertension Qualified Code(s): I10 - Essential (primary) hypertension (4) Hypothyroid Current Visit: Yes Status: Chronic Assessment and plan: Continue levothyroxine Qualifiers: Hypothyroidism type: unspecified Qualified Code(s): E03.9 - Hypothyroidism , unspecified (5) ESRD (end stage renal disease) on dialysis Current Visit: Yes Status: Chronic Assessment and plan: Patient has hyperkalemia today but she is currently undergoing dialysis which should correct it. (6) Diabetes Current Visit: Yes Status: Chronic Assessment and plan: Blood sugars are fairly controlled. They were elevated yesterday but has since improved. We will place patient on sliding scale insulin regimen Qualifiers: Diabetes mellitus type: type 2 Diabetes mellitus mcc insulin use: without mcc use Diabetes mellitus complication status: with kidney complications Diabetes mellitus complication detail: with chronic kidney disease Chronic kidney disease stage: on chronic dialysis Qualified Code(s) : E11.22 - Type 2 diabetes mellitus with diabetic chronic kidney disease; N18.6 - End stage renal disease; Z99.2 - Dependence on renal dialysis (7) SIRS (systemic inflammatory response syndrome) Current Visit: Yes Status: Acute Assessment and plan: Uncertain etiology but patient may have underlying UTI. Currently on Zosyn. We will de-escalate antibiotics. - Time Spent With Patient Total time spent is greater than 50% in coordination of care (as documented) at patient's floor/unit and/or counseling patient: - Subjective Interval history: Patient reports patient seen in dialysis. Patient reports that her abdominal pain has improved and is better controlled. She continues to have back pain. No fever reported overnight. - Constitutional Vitals: Temp Pulse Resp BP Pulse Ox 97.6 F 69 14 144/77 93 11/12/17 12:30 11/12/17 07:28 11/12/17 12:30 11/12/17 12:30 11/12/17 08:35 General appearance: Present: pleasant, answers questions appropriately Exam: Somnolent but wakes up to answer questions appropriately - Respiratory Respiratory exam: Present: CTAB. Absent: accessory muscle use, rales, rhonchi, wheezes - Cardiovascular Cardiovascular exam: Present: RRR, +S1, +S2. Absent: diastolic murmur, gallop, rubs, systolic murmur - GI/Abdominal GI/Abdominal exam: Present: normal bowel sounds, soft, tenderness (Mild epigastric and right upper quadrant), no peritoneal signs. Absent: distended - Extremities Exam Extremities exam: Present: warm, radial pulses palpable and symmetrical. Absent : calf tenderness, cyanotic, pedal edema - Neurological Exam Neurological exam: Present: no focal deficits. Absent: facial droop, speech deficit - Skin Skin exam: Present: dry, intact Internal Medicine: Result - Labs CBC & Chem 7: 11/12/17 03:31 11/12/17 08:22 Labs: Short CBC 11/12/17 Range/Units 03:31 WBC 12.0 H (4.3-11.1) K/mcL Hgb 11.4 L (11.5-15.4) g/dL Hct 33.9 L (35.3-44.9) % Plt Count 395 (140-400) K/mcL BMP 11/12/17 11/12/17 03:31 08:22 Sodium 129 L Potassium 6.4 H D Chloride 93 L Carbon Dioxide 20 L BUN 63 H 72 H Creatinine 9.54 H Glucose 268 H Calcium 9.0 - VTE Documentation of Mechanical Device: Intermittent pneumatic compression device Consult Discharge Plan - Plan Referrals: Hugo Mercedes MD [Primary Care Provider] -
[2017-11-12 13:27] LABS: Blood Urea Nitrogen 14 mg/dL (8-23); Potassium 2.2 mEq/L (3.5-5.1)
[2017-11-12] MEDS ORDERED: *HR* Midazolam HCl 2 MG/2 ML VIAL IVP ONE (13:49)
[2017-11-12] MEDS ORDERED: *HR* Midazolam HCl 2 MG/2 ML VIAL ONE (13:49)
[2017-11-12] MEDS ORDERED: *HR* FentaNYL (PF) 100 MCG/2 ML VIAL IVP ONE (13:49)
[2017-11-12] MEDS ORDERED: *HR* FentaNYL (PF) 100 MCG/2 ML VIAL ONE (13:50)
--- NOTE | 2017-11-12 14:24 | IR Procedure Note ---
Date of procedure: 11/12/17 Consent Obtained: Written consent Timeout: Correct patient and procedure verified, Correct site verified, Time out performed, Skin prep completed Local anesthetic: Lidocaine 1% Indications: Dialysis malfunction Procedure Performed: Fistulagram Was there an spa assistant manager present: No Results/Findings: reprot to follow Estimated blood loss (cc): 5 Complications: None; Tolerated procedure well Post Procedure Treatment Plan: Monitor on floor Specimen: None
[2017-11-12] MEDS: amLODIPine 5 MG TABLET PO SCH (15:05)
[2017-11-12] MEDS: Furosemide 40 MG TABLET PO SCH (15:06)
[2017-11-12] MEDS: Isosorbide MONOnitrate (24 HR) 60 MG TAB.ER.24H PO SCH (15:06)
[2017-11-12] MEDS ORDERED: Insulin LISPRO 300 UNITS/3 ML VIAL SQ SCH ×2 (16:30→21:00)
[2017-11-13 05:21] LABS: Hematocrit 33.3 % (35.3-44.9); Hemoglobin 11.3 g/dL (11.5-15.4); Mean Corpuscular HGB Conc 33.9 g/dL (31.6-35.5); Mean Corpuscular Hemoglobin 32.9 pg (28.0-33.3); Mean Corpuscular Volume 97.1 fL (83.0-100.0); Mean Platelet Volume 11.2 fL (9.4-12.4); Platelet Count 428 K/mcL (140-400); Red Blood Count 3.43 M/mcL (3.82-4.97); Red Cell Distribution Width 13.9 % (11.5-14.5)
[2017-11-13 06:04] LABS: Calcium 9.4 mg/dL (8.6-10.3); Potassium 5.9 mEq/L (3.5-5.1)
[2017-11-13] MEDS: Piperacillin/Tazobactam 3.375 GM in 0.9 % Sodium Chloride Mini Bag 100 ML IVPB SCH ×2 (06:47→18:50)
[2017-11-13] MEDS: *HR* Heparin 5,000 UNIT/ML VIAL SQ SCH ×2 (06:51→18:23)
[2017-11-13] MEDS: Isosorbide MONOnitrate (24 HR) 60 MG TAB.ER.24H PO SCH (08:03)
[2017-11-13] MEDS: Aspirin Enteric Coated 81 MG Tablet PO SCH (08:03)
[2017-11-13] MEDS: Renal Vitamin 1 CAP CAPSULE PO SCH (08:03)
[2017-11-13] MEDS: Gabapentin 100 MG CAPSULE PO SCH ×3 (08:04→20:46)
[2017-11-13] MEDS: Calcium Acetate 667 MG CAPSULE PO SCH ×3 (08:04→17:26)
[2017-11-13] MEDS: Furosemide 40 MG TABLET PO SCH (08:04)
[2017-11-13] MEDS: amLODIPine 5 MG TABLET PO SCH (08:04)
[2017-11-13] MEDS ORDERED: 0.9 % Sodium Chloride 250 ML IVC PRN (08:05)
--- NOTE | 2017-11-13 09:39 | Nephrology Progress Note ---
Date of Encounter: 11/13/17 Time of Encounter: 09:37 - Assessment and Plan (1) ESRD (end stage renal disease) on dialysis Current Visit: Yes Status: Chronic Current regimen MWF in [place]. HD today then she can go home from a renal standpoint. Avoid nephrotoxins and renal dose all medications. Additional HD and UF as needed. (2) Dialysis catheter clot or failure Current Visit: Yes Status: Acute IR procedure successful with angioplasty. May go home from a renal standpoint. (3) Low back pain Current Visit: Yes Status: Acute Per primary. Qualifiers: Chronicity: chronic Back pain laterality: bilateral Sciatica presence: without sciatica Qualified Code(s): M54.5 - Low back pain; G89.29 - Other chronic pain (4) Hyperkalemia Current Visit: Yes Status: Acute K 5.9 will correct with HD and recheck after treatment. Continue renal diet. Subjective Principal diagnosis: back pain Interval history: Pt seen and examined during HD, tolerating well. NAD, denies nausea/vomiting. Objective - Vital Signs Vital signs: Vital Signs Temp Pulse Resp BP Pulse Ox 11/13/17 08:15 178/77 11/13/17 07:50 93 11/13/17 06:55 97.6 F 74 14 183/81 92 11/13/17 03:40 97.6 F 69 17 149/62 93 11/13/17 00:44 98.1 F 69 17 169/59 93 11/12/17 20:02 98.4 F 73 16 147/70 92 11/12/17 16:28 98.8 F 68 18 147/64 96 11/12/17 15:15 98.6 F 72 20 166/74 95 11/12/17 14:10 75 14 152/74 97 11/12/17 14:03 69 14 161/76 97 11/12/17 13:58 69 14 169/84 97 11/12/17 13:54 76 13 220/109 98 11/12/17 12:30 97.6 F 14 144/77 11/12/17 12:15 128/65 11/12/17 12:00 112/64 11/12/17 11:45 130/65 11/12/17 11:30 121/63 11/12/17 11:15 135/68 11/12/17 11:00 147/68 11/12/17 10:45 133/59 11/12/17 10:30 137/62 11/12/17 10:15 133/64 11/12/17 10:00 123/63 11/12/17 09:45 123/60 Intake and Output 11/12/17 11/13/17 11/13/17 23:59 07:59 15:59 Intake Total 340 / 340 400 / 400 Output Total 0 / 0 Balance 340 / 340 400 / 400 Intake: IV Fluids 100 / 100 Zosyn 3.375 GM In 0.9 % Sodium 100 / 100 Chloride (Mini-Bag +) 100 ML @ 25 mls/hr IVPB Q12H [facility] Rx#: [id number] Oral 240 / 240 200 / 200 Free Water 200 / 200 Output: Urine 0 / 0 Other: Meal Dinner Percent of Meal Consumed 25% Stool Size Moderate Stool Consistency soft Stool Color Brown # Urine Diapers 1 # Bowel Movement Diapers 1 Weight 80.9 kg Blood Glucose* 311 413 Patient Weight 11/13/17 23:59 Weight 80.9 kg - General Appearance General appearance: Present: well-developed, well-nourished EENT: Present: ATNC, hearing intact, vision intact Neck: Present: supple Respiratory: Present: clear Cardiology: Present: no edema, normal S1, normal S2 Dialysis Vascular Access: Arteriovenous Fistula thrill: Yes bruit: Yes Gastrointestinal: Present: normoactive bowel sounds, no tenderness, no guarding Integumentary: Present: no rash, warm and dry Neurologic: Present: alert and oriented x3 Psychiatric: Present: mood/affect appropriate - Lab 11/13/17 04:39 11/13/17 04:39 Most recent lab results Calcium 9.4 mg/dL (8.6-10.3) 11/13/17 04:39 Phosphorus 10.9 mg/dL (2.7-4.5) H 11/08/17 05:46 Magnesium 2.3 mg/dL (1.6-2.6) 11/08/17 05:46 - VTE Documentation of Mechanical Device: Intermittent pneumatic compression device Consult Discharge Plan - Plan Referrals: Hugo Mercedes MD [Primary Care Provider] -
[2017-11-13] MEDS: *HR* OxyCODONE Immed Rel 5 MG TABLET PO PRN (13:35)
--- NOTE | 2017-11-13 17:16 | Internal Med Progress Note ---
Date of Encounter: 11/13/17 Time of Encounter: 09:35 - Assessment and plan (1) Abdominal pain Current Visit: Yes Status: Acute Assessment and plan: Improved. Related to hydropic gallbladder and biliary dyskinesia. Patient did not want cholecystostomy. We will arrange for follow-up with surgery as outpatient after discharge. Qualifiers: Abdominal location: generalized Qualified Code(s): R10.84 - Generalized abdominal pain (2) Low back pain Current Visit: Yes Status: Acute Assessment and plan: Acute on chronic low back pain. Physical therapy recommended ECF placement. 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 Patient will be discharged to skilled rehabilitation when she is medically stable. Qualifiers: Chronicity: chronic Back pain laterality: bilateral Sciatica presence: without sciatica Qualified Code(s): M54.5 - Low back pain; G89.29 - Other chronic pain (3) Hypertension Current Visit: Yes Status: Chronic Assessment and plan: Continue carvedilol and losartan. Qualifiers: Hypertension type: essential hypertension Qualified Code(s): I10 - Essential (primary) hypertension (4) Hypothyroid Current Visit: Yes Status: Chronic Assessment and plan: Continue levothyroxine Qualifiers: Hypothyroidism type: unspecified Qualified Code(s): E03.9 - Hypothyroidism , unspecified (5) ESRD (end stage renal disease) on dialysis Current Visit: Yes Status: Chronic Assessment and plan: Continue hemodialysis per nephrology recommendations. She received dialysis today. Will receive dialysis again tomorrow to get back on her usual schedule. (6) Diabetes Current Visit: Yes Status: Chronic Assessment and plan: On insulin pump. Continue diabetic diet and adjust insulin pump according to blood sugars. Qualifiers: Diabetes mellitus type: type 2 Diabetes mellitus oysterman insulin use: without oysterman use Diabetes mellitus complication status: with kidney complications Diabetes mellitus complication detail: with chronic kidney disease Chronic kidney disease stage: on chronic dialysis Qualified Code(s) : E11.22 - Type 2 diabetes mellitus with diabetic chronic kidney disease; N18.6 - End stage renal disease; Z99.2 - Dependence on renal dialysis (7) SIRS (systemic inflammatory response syndrome) Current Visit: Yes Status: Acute Assessment and plan: No clear etiology identified. Patient was treated for UTI. Has completed 5 days of antibiotics. We will stop antibiotics at this time. - Time Spent With Patient Total time spent is greater than 50% in coordination of care (as documented) at patient's floor/unit and/or counseling patient: - Subjective Interval history: Patient was seen in dialysis. She feels much better today. Abdominal pain is much improved. Denies any chest pain or palpitations. No nausea or vomiting. Underwent AV fistulogram yesterday with angioplasty. - Constitutional Vitals: Temp Pulse Resp BP Pulse Ox 98.8 F 75 17 156/75 91 11/13/17 16:33 11/13/17 16:33 11/13/17 16:33 11/13/17 16:33 11/13/17 16:33 General appearance: Present: cooperative, A&O X 3, pleasant, answers questions appropriately - Neck Neck exam general surgery: Present: supple, trachea midline. Absent: lymphadenopathy - Respiratory Respiratory exam: Present: CTAB. Absent: accessory muscle use, rales, rhonchi, wheezes - Cardiovascular Cardiovascular exam: Present: RRR, +S1, +S2. Absent: diastolic murmur, gallop, rubs, systolic murmur - GI/Abdominal GI/Abdominal exam: Present: normal bowel sounds, soft, no peritoneal signs. Absent: distended, tenderness - Extremities Exam Extremities exam: Present: warm, radial pulses palpable and symmetrical. Absent : calf tenderness, cyanotic, pedal edema - Neurological Exam Neurological exam: Present: alert, CN II-XII intact, no focal deficits. Absent : facial droop, speech deficit - Skin Skin exam: Present: dry, intact Internal Medicine: Result - Labs CBC & Chem 7: 11/13/17 04:39 11/13/17 04:39 Labs: Short CBC 11/13/17 Range/Units 04:39 WBC 12.7 H (4.3-11.1) K/mcL Hgb 11.3 L (11.5-15.4) g/dL Hct 33.3 L (35.3-44.9) % Plt Count 428 H (140-400) K/mcL BMP 11/13/17 04:39 Sodium 129 L Potassium 5.9 H D Chloride 92 L Carbon Dioxide 21 L BUN 69 H Creatinine 8.82 H Glucose 454 H Calcium 9.4 - VTE Documentation of Mechanical Device: Intermittent pneumatic compression device Consult Discharge Plan - Plan Referrals: Hugo Mercedes MD [Primary Care Provider] -
[2017-11-14 05:04] LABS: Hematocrit 34.7 % (35.3-44.9); Hemoglobin 11.2 g/dL (11.5-15.4); Mean Corpuscular HGB Conc 32.3 g/dL (31.6-35.5); Mean Corpuscular Hemoglobin 31.6 pg (28.0-33.3); Mean Platelet Volume 10.4 fL (9.4-12.4); Platelet Count 375 K/mcL (140-400); Red Blood Count 3.54 M/mcL (3.82-4.97); Red Cell Distribution Width 14.1 % (11.5-14.5)
[2017-11-14 05:23] LABS: Calcium 9.1 mg/dL (8.6-10.3); Potassium 4.5 mEq/L (3.5-5.1)
[2017-11-14] MEDS: *HR* Heparin 5,000 UNIT/ML VIAL SQ SCH (06:21)
[2017-11-14] MEDS: Aspirin Enteric Coated 81 MG Tablet PO SCH (07:39)
[2017-11-14] MEDS: Calcium Acetate 667 MG CAPSULE PO SCH ×2 (07:39→13:16)
[2017-11-14] MEDS: Renal Vitamin 1 CAP CAPSULE PO SCH (07:40)
[2017-11-14] MEDS: Gabapentin 100 MG CAPSULE PO SCH (07:40)
[2017-11-14] MEDS ORDERED: 0.9 % Sodium Chloride 250 ML IVC PRN (07:55)
[2017-11-14] MEDS ORDERED: 0.9 % Sodium Chloride 1,000 ML PRIME SCH (08:00)
[2017-11-14] MEDS ORDERED: 0.9 % Sodium Chloride 1,000 ML ONE (08:14)
--- NOTE | 2017-11-14 09:06 | Nephrology Progress Note ---
Date of Encounter: 11/14/17 Time of Encounter: 09:04 - Assessment and Plan (1) ESRD (end stage renal disease) on dialysis Current Visit: Yes Status: Chronic Current regimen MWF in [place]. Avoid nephrotoxins and renal dose all medications. Additional HD and UF as needed. May d/c from a renal standpoint. (2) Dialysis catheter clot or failure Current Visit: Yes Status: Acute Resolved. (3) Low back pain Current Visit: Yes Status: Acute Per primary. Qualifiers: Chronicity: chronic Back pain laterality: bilateral Sciatica presence: without sciatica Qualified Code(s): M54.5 - Low back pain; G89.29 - Other chronic pain (4) Hyperkalemia Current Visit: Yes Status: Acute K 4.5 today, stable. Continue renal diet. Subjective Principal diagnosis: back pain Interval history: Pt seen and examined. NAD. She is wanting to go to [facility] today. Objective - Vital Signs Vital signs: Vital Signs Temp Pulse Resp BP Pulse Ox 11/14/17 07:55 97.8 F 59 18 167/73 94 11/14/17 07:46 95 11/14/17 04:02 97.8 F 60 15 146/64 95 11/13/17 23:56 97.9 F 64 15 165/64 95 11/13/17 19:20 98.6 F 74 16 155/68 93 11/13/17 16:33 98.8 F 75 17 156/75 91 11/13/17 13:05 97.8 F 16 131/67 11/13/17 12:50 143/64 11/13/17 12:35 134/43 11/13/17 12:20 139/44 11/13/17 12:05 129/37 11/13/17 11:50 125/69 11/13/17 11:35 126/48 11/13/17 11:20 132/54 11/13/17 11:05 126/64 11/13/17 10:50 141/56 11/13/17 10:35 139/61 11/13/17 10:20 148/57 11/13/17 10:05 141/59 11/13/17 09:50 140/70 11/13/17 09:35 149/68 11/13/17 09:20 97.8 F 20 158/70 Intake and Output 11/13/17 11/14/17 11/14/17 23:59 07:59 15:59 Intake Total 350 / 350 550 / 550 Balance 350 / 350 550 / 550 Intake: Oral 350 / 350 550 / 550 Other: Meal Dinner Percent of Meal Consumed 100% Stool Size Moderate Stool Consistency soft Stool Color Brown Blood Tinged # Voids 1 # Bowel Movement Diapers 1 Weight 75.9 kg Blood Glucose* 373 353 - General Appearance General appearance: Present: well-developed, well-nourished EENT: Present: ATNC, hearing intact, vision intact Neck: Present: supple Respiratory: Present: clear Cardiology: Present: no edema, normal S1, normal S2 Dialysis Vascular Access: Arteriovenous Fistula thrill: Yes bruit: Yes Gastrointestinal: Present: normoactive bowel sounds, no tenderness, no guarding Integumentary: Present: no rash, warm and dry Neurologic: Present: alert and oriented x3 Psychiatric: Present: mood/affect appropriate, cooperative - Lab 11/14/17 04:43 11/14/17 04:43 Most recent lab results Calcium 9.1 mg/dL (8.6-10.3) 11/14/17 04:43 Phosphorus 10.9 mg/dL (2.7-4.5) H 11/08/17 05:46 Magnesium 2.3 mg/dL (1.6-2.6) 11/08/17 05:46 - VTE Documentation of Mechanical Device: Intermittent pneumatic compression device Consult Discharge Plan - Plan Referrals: Hugo Mercedes MD [Primary Care Provider] -
--- NOTE | 2017-11-14 10:40 | Discharge Summary ---
- NOTES TO OUTPATIENT PROVIDER Notes to Outpatient Provider: Patient with end-stage renal disease on hemodialysis was hospitalized here with acute abdominal pain and low back pain. 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 However patient did not want this procedure. As such surgery recommended HIDA scan and follow-up as outpatient. HIDA scan showed biliary dyskinesia. Patient's abdominal pain has slowly improved since then. She also underwent CT scan of the lumbar spine which showed destructive changes in multiple lumbar levels. There was concern for osteomyelitis. Patient then underwent MRI of the lumbar spine which showed similar findings. These were unchanged from her prior MRI done last year. She had previously already being treated for osteomyelitis with long course of antibiotics. She was evaluated by spine surgery and recommended no further evaluation or antibiotics as she was already previously treated for it. She was also not a surgical candidate. She then underwent fistulogram and angioplasty for her AV fistula and is now clinically stable for discharge. She will will be discharged to skilled rehabilitation and will follow up with surgery and nephrology as outpatient. Orders not resulted at time of discharge: Pending orders 11/15/17 04:00 Basic Metabolic Panel AM 0400 CBC no Diff [Complete Blood Count w/o Diff] [HEME] AM 0400 11/16/17 04:00 Basic Metabolic Panel AM 0400 CBC no Diff [Complete Blood Count w/o Diff] [HEME] AM 0400 Date of Encounter: 11/14/17 Time of Encounter: 10:37 - Discharge Diagnosis (1) Abdominal pain Priority: Primary Status: Acute Qualifiers: Abdominal location: generalized Qualified Code(s): R10.84 - Generalized abdominal pain (2) Low back pain Priority: Secondary Status: Acute Qualifiers: Chronicity: chronic Back pain laterality: bilateral Sciatica presence: without sciatica Qualified Code(s): M54.5 - Low back pain; G89.29 - Other chronic pain (3) Hypertension Priority: Secondary Status: Chronic Qualifiers: Hypertension type: essential hypertension Qualified Code(s): I10 - Essential (primary) hypertension (4) Hypothyroid Priority: Secondary Status: Chronic Qualifiers: Hypothyroidism type: unspecified Qualified Code(s): E03.9 - Hypothyroidism , unspecified (5) ESRD (end stage renal disease) on dialysis Priority: Secondary Status: Chronic (6) Diabetes Priority: Secondary Status: Chronic Qualifiers: Diabetes mellitus type: type 2 Diabetes mellitus nursing home insulin use: without night assistant use Diabetes mellitus complication status: with kidney complications Diabetes mellitus complication detail: with chronic kidney disease Chronic kidney disease stage: on chronic dialysis Qualified Code(s) : E11.22 - Type 2 diabetes mellitus with diabetic chronic kidney disease; N18.6 - End stage renal disease; Z99.2 - Dependence on renal dialysis (7) SIRS (systemic inflammatory response syndrome) Priority: Secondary Status: Acute (8) UTI (urinary tract infection) Priority: Secondary Status: Acute Qualifiers: Urinary tract infection type: acute cystitis Hematuria presence: without hematuria Qualified Code(s): N30.00 - Acute cystitis without hematuria Hospital course: Ms. Moffett is a 71 year old female Patient with end-stage renal disease on hemodialysis , diabetes, hypertension who was hospitalized here with acute abdominal pain and low back pain. 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 However patient did not want this procedure. As such surgery recommended HIDA scan and follow-up as outpatient. HIDA scan showed biliary dyskinesia. Patient's abdominal pain has slowly improved since then. She also underwent CT scan of the lumbar spine which showed destructive changes in multiple lumbar levels. There was concern for osteomyelitis. Patient then underwent MRI of the lumbar spine which showed similar findings. These were unchanged from her prior MRI done last year. She had previously already being treated for osteomyelitis with long course of antibiotics. She was evaluated by spine surgery and recommended no further evaluation or antibiotics as she was already previously treated for it. She was also not a surgical candidate. She then underwent fistulogram and angioplasty for her AV fistula and is now clinically stable for discharge. She will be discharged to skilled rehabilitation and will follow up with surgery and nephrology as outpatient. Discharge discussed with: patient, family, nurse, case management - Time Spent with Patient Total time spent providing and/or coordinating discharge services: Greater than 30 minutes (35 min) - Discharge Medications Prescriptions: Gabapentin [Neurontin] 100 mg PO TID #60 capsule OxyCODONE Immed Rel [Roxicodone 10 MG] 10 mg PO TID PRN 5 Days #14 tablet PRN Reason: Pain Home Medications: Levothyroxine Sodium [Synthroid] 200 mcg PO DAILY 02/08/16 [History] Atorvastatin [Lipitor] 40 mg PO DAILY 05/26/16 [History] Calcium Acetate [Phos-LO] 667 mg PO TIDWM 05/26/16 [History] Duloxetine HCl [Cymbalta] 30 mg PO DAILY 05/26/16 [History] Ergocalciferol (VITAMIN D2) [Vitamin D2] 50,000 unit PO WE 05/26/16 [History] Renal Vitamin [Renal Caps Softgel] 1 mg PO DAILY 05/26/16 [History] Allopurinol [Zyloprim 300 MG] 300 mg PO DAILY 05/27/16 [History] Clopidogrel [Plavix] 75 mg PO DAILY 02/27/17 [History] Losartan Potassium [Cozaar] 100 mg PO DAILY 03/26/17 [History] Ezetimibe 10 mg PO DAILY 09/19/17 [History] Insulin Pump Cartridge [Insulin Pump] 1 device SQ AD 09/19/17 [History] Aspirin [Adult Aspirin Regimen] 81 mg PO DAILY 30 Days #30 tablet. 09/20/17 [ Rx] Carvedilol [Coreg] 12.5 mg PO BIDWM 30 Days #60 tablet 09/20/17 [Rx] Hydralazine HCl 50 mg PO TID #90 tablet 09/20/17 [Rx] amLODIPine [Norvasc] 10 mg PO DAILY tablet 09/20/17 [Rx] Citalopram Hydrobromide [Citalopram HBr] 20 mg PO BID 11/07/17 [History] Furosemide [Lasix] 40 mg PO DAILY 11/07/17 [History] Lidocaine 1 patch TD Q12H PRN 11/07/17 [History] Pantoprazole Sodium [Protonix] 40 mg PO DAILY 11/07/17 [History] Sevelamer [Renvela] 800 mg PO TID 11/07/17 [History] Gabapentin [Neurontin] 100 mg PO TID #60 capsule 11/14/17 [Rx] OxyCODONE Immed Rel [Roxicodone 10 MG] 10 mg PO TID PRN 5 Days #14 tablet [Rx] Allergies/Adverse Reactions: 3 Allergy/AdvReac Type Severity Reaction Status Date / Time IVP DYE AdvReac See Uncoded 11/07/17 08:14 Comments ivp dye AdvReac See Uncoded 03/26/17 09:56 Comments Date of admission: 11/08/17 14:51 Primary care physician: Hugo Mercedes MD Consults: 11/10/17 07:45 Consult to Dialysis [CONS] ONCE 11/10/17 15:56 Consult to Interventional Radiology [CONS] Routine Consulting Provider: Radiology Interventional Cols Reason for Consult: Per report there is difficulty accessing her fistula. Needs fistulogram to eval for stenosis. Call Completed: No 11/11/17 08:31 Consult to Physician [CONS] Routine Consulting Provider: Yaya Beltran Jr Reason for Consult: Back pain/ Possible discitis/ Osteomyelitis Time Notified: 08:32 Call Completed: Yes Consult to Spine Navigator [CONS] [CONS] Routine 11/11/17 14:31 Consult to [employer] [CONS] Routine Reason for SW Consult: pt needs ecf 11/12/17 08:00 Consult to Dialysis [CONS] ONCE 11/13/17 08:15 Consult to Dialysis [CONS] ONCE 11/14/17 08:00 Consult to Dialysis [CONS] ONCE Discharging clinician: Finesse Ramirez Anticipated date of discharge: 11/14/17 - Constitutional Vitals: Temp Pulse Resp BP Pulse Ox 97.8 F 59 18 167/73 94 11/14/17 07:55 11/14/17 07:55 11/14/17 07:55 11/14/17 07:55 11/14/17 07:55 General appearance: Present: cooperative, A&O X 3, pleasant, answers questions appropriately - Neck Neck exam general surgery: Present: supple, trachea midline. Absent: lymphadenopathy - Respiratory Respiratory exam: Present: CTAB. Absent: accessory muscle use, rales, rhonchi, wheezes - Cardiovascular Cardiovascular exam: Present: RRR, +S1, +S2. Absent: diastolic murmur, gallop, rubs, systolic murmur - GI/Abdominal GI/Abdominal exam: Present: normal bowel sounds, soft, tenderness (right upper quadrant), no peritoneal signs. Absent: distended - Extremities Exam Extremities exam: Present: warm, radial pulses palpable and symmetrical. Absent : calf tenderness, cyanotic, pedal edema - Neurological Exam Neurological exam: Present: alert, oriented X3, no focal deficits. Absent: facial droop, speech deficit - Patient Status Disposition: Home, Self-Care Condition: Good Functional capacity at discharge: bed bound Overall status at discharge: patient is progressing back to baseline - Discharge Instructions Instructions: Diabetes Mellitus Type 2 in Adults (DC) Follow Up With: Hugo Mercedes MD [Primary Care Provider] - (in 1-2 weeks) John Mcknight MD [Non-Partnered Physician] - (In one to 2 weeks for biliary dyskinesia) Forms: ED Satisfaction Letter - Diet and Activity Activity: as per physical therapy Diet: diabetic diet, low fat, low cholesterol, low salt diet - VTE Documentation of Mechanical Device: Intermittent pneumatic compression device
--- NOTE | 2017-11-14 11:08 | Physician Discharge Referral ---
ExtendedCare Referral Info Provider in Charge after Transfer: PCP Institutional Level of Care: Skilled - Diagnosis (1) Abdominal pain Priority: Primary Status: Acute (2) Low back pain Priority: Secondary Status: Acute (3) Hypertension Priority: Secondary Status: Chronic (4) Hypothyroid Priority: Secondary Status: Chronic (5) ESRD (end stage renal disease) on dialysis Priority: Secondary Status: Chronic (6) Diabetes Priority: Secondary Status: Chronic (7) SIRS (systemic inflammatory response syndrome) Priority: Secondary Status: Acute (8) UTI (urinary tract infection) Priority: Secondary Status: Acute Prognosis: Fair Aware of Diagnosis: Patient, Family Aware of Prognosis: Patient, Family - Transfer Medications Prescriptions: Gabapentin [Neurontin] 100 mg PO TID #60 capsule OxyCODONE Immed Rel [Roxicodone 10 MG] 10 mg PO TID PRN 5 Days #14 tablet PRN Reason: Pain Home Medications: Levothyroxine Sodium [Synthroid] 200 mcg PO DAILY 02/08/16 [History] Atorvastatin [Lipitor] 40 mg PO DAILY 05/26/16 [History] Calcium Acetate [Phos-LO] 667 mg PO TIDWM 05/26/16 [History] Duloxetine HCl [Cymbalta] 30 mg PO DAILY 05/26/16 [History] Ergocalciferol (VITAMIN D2) [Vitamin D2] 50,000 unit PO WE 05/26/16 [History] Renal Vitamin [Renal Caps Softgel] 1 mg PO DAILY 05/26/16 [History] Allopurinol [Zyloprim 300 MG] 300 mg PO DAILY 05/27/16 [History] Clopidogrel [Plavix] 75 mg PO DAILY 02/27/17 [History] Losartan Potassium [Cozaar] 100 mg PO DAILY 03/26/17 [History] Ezetimibe 10 mg PO DAILY 09/19/17 [History] Insulin Pump Cartridge [Insulin Pump] 1 device SQ AD 09/19/17 [History] Aspirin [Adult Aspirin Regimen] 81 mg PO DAILY 30 Days #30 tablet. 09/20/17 [ Rx] Carvedilol [Coreg] 12.5 mg PO BIDWM 30 Days #60 tablet 09/20/17 [Rx] Hydralazine HCl 50 mg PO TID #90 tablet 09/20/17 [Rx] amLODIPine [Norvasc] 10 mg PO DAILY tablet 09/20/17 [Rx] Citalopram Hydrobromide [Citalopram HBr] 20 mg PO BID 11/07/17 [History] Furosemide [Lasix] 40 mg PO DAILY 11/07/17 [History] Lidocaine 1 patch TD Q12H PRN 11/07/17 [History] Pantoprazole Sodium [Protonix] 40 mg PO DAILY 11/07/17 [History] Sevelamer [Renvela] 800 mg PO TID 11/07/17 [History] Gabapentin [Neurontin] 100 mg PO TID #60 capsule 11/14/17 [Rx] OxyCODONE Immed Rel [Roxicodone 10 MG] 10 mg PO TID PRN 5 Days #14 tablet [Rx] Allergies/Adverse Reactions: 3 Allergy/AdvReac Type Severity Reaction Status Date / Time IVP DYE AdvReac See Uncoded 11/07/17 08:14 Comments ivp dye AdvReac See Uncoded 03/26/17 09:56 Comments - Respiratory Orders Oxygen / L per min (Keep sats greater than 88%) Smoking Cessation: Smoking cessation has been advised. For more information, call the [place] Tobacco Quit Line at 1-716-KKBJ-NOW. - Ancillary Orders May consult with Dentist, Wire Straightener, Business Analyst Sales Operations PRN - Advance Directives Code Status: Full Code - Mobility Orders Other ( Physical therapy) - Rehabiliation Orders Rehab Potential: Fair Rehab Orders: Evaluation for Physical Therapy, Evaluation for Occupational Therapy - Diet Orders No Concentrated Sweets (Diabetic), Renal, Cardiac CERTIFICATION: I certify that the transfer of the above named patient to an Extended Care Facility is necessary for the continuing treatment of the diagnosis listed. The above information is true and accurate reflection of patient's current condition. Confidential - Redisclosure prohibited without a patient's written consent.
[2017-11-14] MEDS: Isosorbide MONOnitrate (24 HR) 60 MG TAB.ER.24H PO SCH (13:16)
[2017-11-14] MEDS: amLODIPine 5 MG TABLET PO SCH (13:16)
[2017-11-14] MEDS: Furosemide 40 MG TABLET PO SCH (13:17)
[2017-11-14] MEDS: *HR* OxyCODONE Immed Rel 5 MG TABLET PO PRN (13:17)
[2017-11-14 14:15] VITALS: BP 164/89
== END 2017-11-14 15:22 | disposition home or self-care (01) | DRG 444 ==
LOC: EMEROO 04:47 → 2ANU 04:47 → SUATTDRO 07:52 → 2ANU 08:37 → SUATTDRO 11-08 14:51
PROVIDERS: ADMIT Student in an Organized Health Care Education/Training Program; ATTEND Internal Medicine